=== PATIENT | female | born 1970 | race Hispanic/Latino ===

== ENCOUNTER 2017-07-12 22:33 | Inpatient (IN) | payer MEDICAID ==
[2017-07-12] MEDS ORDERED: TYLENOL PO ONE (22:56)
[2017-07-12 23:39] LABS: Basophils % (Auto) 0.4 % (0.0-1.8); Hematocrit 34.8 % (30.3-42.9); Hemoglobin 11.5 gm/dl (10.1-14.3); Mean Corpuscular HGB Conc 33 % (30-34); Mean Corpuscular Hemoglobin 28 pg (28-32); Mean Corpuscular Volume 86 fl (79-97); Platelet Count 252 K/mm3 (140-440); Red Blood Count 4.05 M/mm3 (3.65-5.03); Red Cell Distribution Width 13.6 % (13.2-15.2); White Blood Count 9.1 K/mm3 (4.5-11.0)
[2017-07-12 23:54] LABS: Alanine Aminotransferase 7 units/L (7-56); Albumin 2.5 g/dL (3.9-5); Albumin/Globulin Ratio 0.5 %; Alkaline Phosphatase 91 units/L (35-129); Anion Gap 25 mmol/L; BUN/Creatinine Ratio 16; Bilirubin,Total < 0.20 mg/dL (0.1-1.2); Blood Urea Nitrogen 27 mg/dL (7-17); Calcium 8.5 mg/dL (8.4-10.2); Carbon Dioxide 19 mmol/L (22-30); Chloride 91.6 mmol/L (98-107); Glucose 294 mg/dL (65-100); Lipase 139 units/L (13-60); Potassium 4.3 mmol/L (3.6-5.0); Sodium 131 mmol/L (137-145); Total Protein 7.3 g/dL (6.3-8.2)
[2017-07-13 01:40] LABS: Bacteria,Urine 1+ /HPF (Negative); Bilirubin,Urine NEG (Negative); Blood,Urine NEG (Negative); Ketones,Urine NEG (Negative); Leukocyte Esterase,Urine NEG (Negative); Mucus,Urine FEW /HPF; Nitrite,Urine NEG (Negative); Urobilinogen,Urine < 2.0 mg/dL (<2.0)
[2017-07-13 01:43] LABS: Protein,Urine >500 mg/dL (Negative)
[2017-07-13] MEDS ORDERED: BENADRYL IV ONE (04:07)
[2017-07-13] MEDS ORDERED: ZOFRAN IV ONE (04:07)
[2017-07-13] MEDS ORDERED: DILAUDID IV ONE (04:07)
--- NOTE | 2017-07-13 04:11 | Emergency Department Report ---
- General Chief complaint: Skin Rash Stated complaint: RASH Time Seen by Provider: 07/13/17 02:58 Source: patient Mode of arrival: Ambulatory Limitations: No Limitations - History of Present Illness Initial comments: 47 year old female with past medical history of diabetes, psoriasis, and neuropathy presents to the hospital complains of progressively worsening pruritic rash 2 weeks. I started at the legs and has extended upward to include the torso and arms. Positive pruritus. Patient use a Benadryl and calamine lotion without improvement. Patient complains of dry cough and subjective fever for the last 2-3 days but denies fever prior to that. Patient thinks she might have been bitten by an insect prior to symptom onset. 3 weeks ago patient was seen at [facility] and prescribed medications including an unknown antibiotic for URI. Patient is a chronic right foot plantar surface ulcer. She complains of 10/10 burning and pruritic pain to lower extremities. - Related Data Home Medications Medication Instructions Recorded Confirmed Last Taken AtorvaSTATin [Lipitor] 20 mg PO DAILY 09/19/15 07/13/17 11/07/15 20 MG Insulin Glargine [Lantus] 25 unit SUB-Q QHS 09/19/15 07/13/17 11/07/15 25 UNIT Lisinopril [Zestril TAB] 10 mg PO QDAY 09/19/15 07/13/17 11/07/15 10 MG Ranitidine HCl [Zantac 300 MG TAB] 300 mg PO QPM 09/19/15 07/13/17 11/07/15 300 MG buPROPion SR [Wellbutrin Sr] 150 mg PO QAM 09/19/15 07/13/17 11/07/15 150 MG Insulin Lispro [Humalog] 15 unit SQ TID 07/13/17 07/13/17 Unknown Previous Rx's Medication Instructions Recorded Last Taken Type Ketorolac [Toradol] 10 mg PO Q6H PRN #20 tablet 10/16/15 11/07/15 Rx 10 MG HYDROcodone/APAP 5-325 [[place] 1 each PO Q6HR PRN #20 tablet 10/22/15 11/07/15 Rx 5/325] 1 EACH ALBUTEROL Inhaler [ProAir HFA 2 puff IH QID PRN #1 inhalation 11/07/15 Unknown Rx Inhaler] HYDROcodone/APAP 10-325 [[place] 1 each PO Q8HR PRN #20 tablet 11/07/15 Unknown Rx 10-325 mg TAB] Ibuprofen [Motrin] 600 mg PO Q6H PRN #20 tablet 12/19/15 Unknown Rx Allergies Allergy/AdvReac Type Severity Reaction Status Date / Time Penicillins Allergy Unknown Verified 01/15/17 17:55 IV contrast Allergy Rash Uncoded 01/15/17 17:55 Abscess Boil HPI - HPI Chief Complaint: Skin Rash Stated Complaint: RASH Time Seen by Provider: 07/13/17 02:58 Home Medications: Home Medications Medication Instructions Recorded Confirmed Last Taken AtorvaSTATin [Lipitor] 20 mg PO DAILY 09/19/15 07/13/17 11/07/15 20 MG Insulin Glargine [Lantus] 25 unit SUB-Q QHS 09/19/15 07/13/17 11/07/15 25 UNIT Lisinopril [Zestril TAB] 10 mg PO QDAY 09/19/15 07/13/17 11/07/15 10 MG Ranitidine HCl [Zantac 300 MG TAB] 300 mg PO QPM 09/19/15 07/13/17 11/07/15 300 MG buPROPion SR [Wellbutrin Sr] 150 mg PO QAM 09/19/15 07/13/17 11/07/15 150 MG Insulin Lispro [Humalog] 15 unit SQ TID 07/13/17 07/13/17 Unknown Previous Rx's Medication Instructions Recorded Last Taken Type Ketorolac [Toradol] 10 mg PO Q6H PRN #20 tablet 10/16/15 11/07/15 Rx 10 MG HYDROcodone/APAP 5-325 [[place] 1 each PO Q6HR PRN #20 tablet 10/22/15 11/07/15 Rx 5/325] 1 EACH ALBUTEROL Inhaler [ProAir HFA 2 puff IH QID PRN #1 inhalation 11/07/15 Unknown Rx Inhaler] HYDROcodone/APAP 10-325 [[place] 1 each PO Q8HR PRN #20 tablet 11/07/15 Unknown Rx 10-325 mg TAB] Ibuprofen [Motrin] 600 mg PO Q6H PRN #20 tablet 12/19/15 Unknown Rx Allergies/Adverse Reactions: Allergies Allergy/AdvReac Type Severity Reaction Status Date / Time Penicillins Allergy Unknown Verified 01/15/17 17:55 IV contrast Allergy Rash Uncoded 01/15/17 17:55 ED Review of Systems ROS: Stated complaint: RASH Other details as noted in HPI Comment: All other systems reviewed and negative Other: Constitutional: as per hpi Eyes: No eye pain visual changes ENT: No ear pain or throat pain Neck: Denies pain Respiratory: no sob Cardiovascular: Denies chest pain, palpitations, syncope GI: Denies abdominal pain, nausea, vomiting, diarrhea : Denies dysuria Musculoskeletal: Denies back pain, joint swelling Skin: as per hpi Neurologic: Denies headache, numbness, weakness Psychiatric: Denies suicidal ideation, hallucinations ED Past Medical Hx - Past Medical History Hx Congestive Heart Failure: No Hx Diabetes: Yes Hx Asthma: Yes Hx COPD: No Hx HIV: No Additional medical history: psorasis. NEUROPATHY. FIBROIDS - Surgical History Additional Surgical History: X 1 , Hx. left wrist surgery 2 toes amputated r) foot. partial right foot amputation - Social History Smoking Status: Never Smoker Substance Use Type: None - Medications Home Medications: Home Medications Medication Instructions Recorded Confirmed Last Taken Type AtorvaSTATin [Lipitor] 20 mg PO DAILY 09/19/15 07/13/17 11/07/15 History 20 MG Insulin Glargine [Lantus] 25 unit SUB-Q QHS 09/19/15 07/13/17 11/07/15 History 25 UNIT Lisinopril [Zestril TAB] 10 mg PO QDAY 09/19/15 07/13/17 11/07/15 History 10 MG Ranitidine HCl [Zantac 300 MG TAB] 300 mg PO QPM 09/19/15 07/13/17 11/07/15 History 300 MG buPROPion SR [Wellbutrin Sr] 150 mg PO QAM 09/19/15 07/13/17 11/07/15 History 150 MG Ketorolac [Toradol] 10 mg PO Q6H PRN #20 tablet 10/16/15 07/13/17 11/07/15 Rx 10 MG HYDROcodone/APAP 5-325 [[place] 1 each PO Q6HR PRN #20 tablet 10/22/15 07/13/17 Rx 5/325] 1 EACH ALBUTEROL Inhaler [ProAir HFA 2 puff IH QID PRN #1 inhalation 11/07/15 07/13/17 Unknown Rx Inhaler] HYDROcodone/APAP 10-325 [[place] 1 each PO Q8HR PRN #20 tablet 11/07/15 07/13/17 Unknown Rx 10-325 mg TAB] Ibuprofen [Motrin] 600 mg PO Q6H PRN #20 tablet 12/19/15 07/13/17 Unknown Rx Insulin Lispro [Humalog] 15 unit SQ TID 07/13/17 07/13/17 Unknown History ED Physical Exam - General Limitations: No Limitations - Other Other exam information: General: No limitations, patient is alert in no acute distress Head exam: Atraumatic, normocephalic Eyes exam: Normal appearance, no conjunctivae ENT: Moist mucous membrane, normal oropharynx, no oral lesions Neck exam: Normal inspection, full range of motion, no meningismus nontender Respiratory exam: Clear to auscultation bilateral, no wheezes, rales, crackles Cardiovascular: Normal rate and rhythm, normal heart sounds Abdomen: Soft, nondistended, and nontender, with normal bowel sounds, no rebound, or guarding Extremity: Full range of motion, right midfoot amputation. 4 cm ulceration to the plantar surface of foot active drainage or warm Back: Normal Inspection, full range of motion, no tenderness Neurologic: Alert, oriented x3, cranial nerves intact, no motor or sensory deficit Psychiatric: normal affect, normal mood Skin: Macular papular erythematous nonblanching pruritic rash to lower extremities extending to the torso. Right is more confluent and tender in the lower extremities with small blister formation distally. Patient has a psoriasis-like rash to bilateral arms which she states is ongoing. No rash on the face, palms ED Course Vital Signs 07/12/17 07/12/17 07/13/17 22:41 23:59 02:16 Temperature 98.6 F 98.1 F Pulse Rate 103 H 96 H Respiratory 20 18 20 Rate Blood Pressure 153/68 Blood Pressure 187/89 [Left] O2 Sat by Pulse 100 98 Oximetry 07/13/17 07/13/17 07/13/17 02:17 04:07 04:20 Temperature 98.1 F Pulse Rate 97 H Respiratory 20 18 18 Rate Blood Pressure Blood Pressure 192/102 [Left] O2 Sat by Pulse 98 99 Oximetry - Reevaluation(s) Reevaluation #1: 07/13/17 04:39 dilaudid , benadryl, zofran, solumedrol, insulin sliding scale ordered. Reevaluation #2: 07/13/17 04:51 I attempted to obtain medical records from [facility], they're [place] medical record system is on down time and to at least till 6 AM. - Consultations Consultation #1: 07/13/17 04:[address] Bryson infectious disease. Suggest that rash may be allergic reaction. Possibility of a reaction to Bactrim. Patient does not know the name of the medication she takes. I will request medical release of information from [facility]. ED Medical Decision Making - Lab Data Result diagrams: 07/12/17 23:20 07/12/17 23:20 Lab Results 07/12/17 07/12/17 07/12/17 Range/Units 22:46 23:20 23:20 WBC 9.1 (4.5-11.0) K/mm3 RBC 4.05 (3.65-5.03) M/mm3 Hgb 11.5 (10.1-14.3) gm/dl Hct 34.8 (30.3-42.9) % MCV 86 (79-97) fl MCH 28 (28-32) pg MCHC 33 (30-34) % RDW 13.6 (13.2-15.2) % Plt Count 252 (140-440) K/mm3 Lymph % (Auto) 26.6 (13.4-35.0) % [place] % (Auto) 7.7 H (0.0-7.3) % Eos % (Auto) 2.0 (0.0-4.3) % Baso % (Auto) 0.4 (0.0-1.8) % Lymph # 2.4 (1.2-5.4) K/mm3 [place] # 0.7 (0.0-0.8) K/mm3 Eos # 0.2 (0.0-0.4) K/mm3 Baso # 0.0 (0.0-0.1) K/mm3 Seg Neutrophils % 63.3 (40.0-70.0) % Seg Neutrophils # 5.8 (1.8-7.7) K/mm3 VBG pH 7.388 (7.320-7.420) Sodium (137-145) mmol/L Potassium (3.6-5.0) mmol/L Chloride (98-107) mmol/L Carbon Dioxide (22-30) mmol/L Anion Gap mmol/L BUN (7-17) mg/dL Creatinine (0.7-1.2) mg/dL Estimated GFR ml/min BUN/Creatinine Ratio % Glucose (65-100) mg/dL POC Glucose 381 H (70-105) Calcium (8.4-10.2) mg/dL Total Bilirubin (0.1-1.2) mg/dL AST (5-40) units/L ALT (7-56) units/L Alkaline Phosphatase (35-129) units/L Total Protein (6.3-8.2) g/dL Albumin (3.9-5) g/dL Albumin/Globulin Ratio % Lipase (13-60) units/L Urine Color (Yellow) Urine Turbidity (Clear) Urine pH (5.0-7.0) Ur Specific [place] (1.003-1.030) Urine Protein (Negative) mg/dL Urine Glucose (UA) (Negative) mg/dL Urine Ketones (Negative) mg/dL Urine Blood (Negative) Urine Nitrite (Negative) Urine Bilirubin (Negative) Urine Urobilinogen (<2.0) mg/dL Ur Leukocyte Esterase (Negative) Urine WBC (Auto) (0.0-6.0) /HPF Urine RBC (Auto) (0.0-6.0) /HPF U Epithel Cells (Auto) (0-13.0) /HPF Urine Bacteria (Auto) (Negative) /HPF Urine Mucus /HPF Urine HCG, Qual (Negative) 07/12/17 07/12/17 07/13/17 Range/Units 23:20 Unknown 04:09 WBC (4.5-11.0) K/mm3 RBC (3.65-5.03) M/mm3 Hgb (10.1-14.3) gm/dl Hct (30.3-42.9) % MCV (79-97) fl MCH (28-32) pg MCHC (30-34) % RDW (13.2-15.2) % Plt Count (140-440) K/mm3 Lymph % (Auto) (13.4-35.0) % [place] % (Auto) (0.0-7.3) % Eos % (Auto) (0.0-4.3) % Baso % (Auto) (0.0-1.8) % Lymph # (1.2-5.4) K/mm3 [place] # (0.0-0.8) K/mm3 Eos # (0.0-0.4) K/mm3 Baso # (0.0-0.1) K/mm3 Seg Neutrophils % (40.0-70.0) % Seg Neutrophils # (1.8-7.7) K/mm3 VBG pH (7.320-7.420) Sodium 131 L (137-145) mmol/L Potassium 4.3 (3.6-5.0) mmol/L Chloride 91.6 L (98-107) mmol/L Carbon Dioxide 19 L (22-30) mmol/L Anion Gap 25 mmol/L BUN 27 H (7-17) mg/dL Creatinine 1.7 H (0.7-1.2) mg/dL Estimated GFR 32 ml/min BUN/Creatinine Ratio 16 % Glucose 294 H (65-100) mg/dL POC Glucose (70-105) Calcium 8.5 (8.4-10.2) mg/dL Total Bilirubin < 0.20 (0.1-1.2) mg/dL AST 10 (5-40) units/L ALT 7 (7-56) units/L Alkaline Phosphatase 91 (35-129) units/L Total Protein 7.3 (6.3-8.2) g/dL Albumin 2.5 L (3.9-5) g/dL Albumin/Globulin Ratio 0.5 % Lipase 139 H (13-60) units/L Urine Color Yellow (Yellow) Urine Turbidity Clear (Clear) Urine pH 6.0 (5.0-7.0) Ur Specific [place] 1.022 (1.003-1.030) Urine Protein >500 (Negative) mg/dL Urine Glucose (UA) >=500 (Negative) mg/dL Urine Ketones Neg (Negative) mg/dL Urine Blood Neg (Negative) Urine Nitrite Neg (Negative) Urine Bilirubin Neg (Negative) Urine Urobilinogen < 2.0 (<2.0) mg/dL Ur Leukocyte Esterase Neg (Negative) Urine WBC (Auto) 1.0 (0.0-6.0) /HPF Urine RBC (Auto) 22.0 (0.0-6.0) /HPF U Epithel Cells (Auto) 5.0 (0-13.0) /HPF Urine Bacteria (Auto) 1+ (Negative) /HPF Urine Mucus Few /HPF Urine HCG, Qual Negative (Negative) - Medical Decision Making I'm unclear as to cause the patient's rash may represent an allergic reaction as suggested by infectious disease. Patient initially quarantining the ER for suspected measles but patient's rash and symptoms do not suggest measles. I consider obtained a recent ER chart from [facility], their medical record system is on downtime until 6 AM. Concerned that rash may be cause by Bactrim. Patient started on Dilaudid pain, Benadryl for pruritus, and Solu-Medrol for possible allergic reaction. Patient's glucose will need close monitoring while on steroids. Pt has new onset renal insufficiency and will be admitted. Patient also can't recall the name of her pharmacy where she filled the prescription and if we are unable to obtain medical records from [facility] perhaps the pharmacy can be called during business hours - Differential Diagnosis allergic reaction, drug rash, infectious rash, Critical Care Time: No Critical care attestation.: If time is entered above; I have spent that time in minutes in the direct care of this critically ill patient, excluding procedure time. ED Disposition Clinical Impression: Acute renal insufficiency, Pruritic rash, Hx of amputation of foot, Diabetic foot ulcer, Uncontrolled diabetes mellitus, Psoriasis, Neuropathy Disposition: OP ADMIT IP TO THIS HOSP Is pt being admited?: Yes Condition: Stable Time of Disposition: 04:11 (Dr Blake/hosp)
[2017-07-13] MEDS ORDERED: DILAUDID IV PRN (09:32)
[2017-07-13] MEDS ORDERED: TYLENOL PO PRN (09:34)
[2017-07-13] MEDS ORDERED: ZOFRAN IV PRN (09:34)
[2017-07-13] MEDS ORDERED: D50W (25GM) Syringe IV PRN (09:36)
[2017-07-13] MEDS ORDERED: NORCO 10/325 PO PRN (09:39)
[2017-07-13] MEDS ORDERED: PROAIR IH PRN (09:39)
--- NOTE | 2017-07-13 09:46 | History and Physical Report ---
Medications and Allergies Allergies Allergy/AdvReac Type Severity Reaction Status Date / Time Penicillins Allergy Unknown Verified 01/15/17 17:55 IV contrast Allergy Rash Uncoded 01/15/17 17:55 Home Medications Medication Instructions Recorded Confirmed Last Taken Type AtorvaSTATin [Lipitor] 20 mg PO DAILY 09/19/15 07/13/17 11/07/15 History 20 MG Insulin Glargine [Lantus] 25 unit SUB-Q QHS 09/19/15 07/13/17 11/07/15 History 25 UNIT Lisinopril [Zestril TAB] 10 mg PO QDAY 09/19/15 07/13/17 11/07/15 History 10 MG Ranitidine HCl [Zantac 300 MG TAB] 300 mg PO QPM 09/19/15 07/13/17 11/07/15 History 300 MG buPROPion SR [Wellbutrin Sr] 150 mg PO QAM 09/19/15 07/13/17 11/07/15 History 150 MG Ketorolac [Toradol] 10 mg PO Q6H PRN #20 tablet 10/16/15 07/13/17 11/07/15 Rx 10 MG HYDROcodone/APAP 5-325 [[place] 1 each PO Q6HR PRN #20 tablet 10/22/15 07/13/17 Rx 5/325] 1 EACH ALBUTEROL Inhaler [ProAir HFA 2 puff IH QID PRN #1 inhalation 11/07/15 07/13/17 Unknown Rx Inhaler] HYDROcodone/APAP 10-325 [[place] 1 each PO Q8HR PRN #20 tablet 11/07/15 07/13/17 Unknown Rx 10-325 mg TAB] Ibuprofen [Motrin] 600 mg PO Q6H PRN #20 tablet 12/19/15 07/13/17 Unknown Rx Insulin Lispro [Humalog] 15 unit SQ TID 07/13/17 07/13/17 Unknown History Active Meds: Active Medications Acetaminophen (Tylenol) 650 mg PO Q4H PRN PRN Reason: Pain MILD(1-3)/Fever >100.5/[place] Acetaminophen/Hydrocodone Bitart ([place] 10/325) 1 each PO Q8HR PRN PRN Reason: Pain Albuterol (Proair) 2 puff IH QID PRN PRN Reason: Shortness Of Breath Atorvastatin Calcium (Lipitor) 20 mg PO DAILY RADHA Bupropion HCl (Wellbutrin Sr) 150 mg PO QAM RADHA Dextrose (D50w (25gm) Syringe) 50 ml IV PRN PRN PRN Reason: Hypoglycemia Diphenhydramine HCl (Benadryl) 25 mg IV Q6H PRN PRN Reason: Rash Heparin Sodium (Porcine) (Heparin) 5,000 unit SUB-Q Q8HR RADHA Hydromorphone HCl (Dilaudid) 0.5 mg IV Q3H PRN PRN Reason: Pain , Severe (7-10) Insulin Aspart (Novolog) 0 units SUB-Q ACHS RADHA PRN Reason: Protocol Insulin Detemir (Levemir) 25 units SUB-Q QHS RADHA Methylprednisolone Sodium Succinate (Solu-Medrol) 40 mg IV TID ONE Stop: 07/13/17 09:33 Miscellaneous Medication (Ranitidine Hcl [Zantac 300 Mg Tab]) 300 mg PO QPM RADHA Ondansetron HCl (Zofran) 4 mg IV Q8H PRN PRN Reason: N/V unrelieved by [place]ario Exam - Constitutional Vitals: Temp Pulse Resp BP Pulse Ox 98.3 F 75 16 159/74 97 07/13/17 08:00 07/13/17 08:00 07/13/17 08:04 07/13/17 08:00 07/13/17 08:04 Results - Labs CBC & Chem 7: 07/12/17 23:20 07/12/17 23:20 Labs: Laboratory Last Values WBC 9.1 K/mm3 (4.5-11.0) 07/12/17 23:20 RBC 4.05 M/mm3 (3.65-5.03) 07/12/17 23:20 Hgb 11.5 gm/dl (10.1-14.3) 07/12/17 23:20 Hct 34.8 % (30.3-42.9) 07/12/17 23:20 MCV 86 fl (79-97) 07/12/17 23:20 MCH 28 pg (28-32) 07/12/17 23:20 MCHC 33 % (30-34) 07/12/17 23:20 RDW 13.6 % (13.2-15.2) 07/12/17 23:20 Plt Count 252 K/mm3 (140-440) 07/12/17 23:20 Lymph % (Auto) 26.6 % (13.4-35.0) 07/12/17 23:20 [place] % (Auto) 7.7 % (0.0-7.3) H 07/12/17 23:20 Eos % (Auto) 2.0 % (0.0-4.3) 07/12/17 23:20 Baso % (Auto) 0.4 % (0.0-1.8) 07/12/17 23:20 Lymph # 2.4 K/mm3 (1.2-5.4) 07/12/17 23:20 [place] # 0.7 K/mm3 (0.0-0.8) 07/12/17 23:20 Eos # 0.2 K/mm3 (0.0-0.4) 07/12/17 23:20 Baso # 0.0 K/mm3 (0.0-0.1) 07/12/17 23:20 Seg Neutrophils % 63.3 % (40.0-70.0) 07/12/17 23:20 Seg Neutrophils # 5.8 K/mm3 (1.8-7.7) 07/12/17 23:20 VBG pH 7.388 (7.320-7.420) 07/12/17 23:20 Sodium 131 mmol/L (137-145) L 07/12/17 23:20 Potassium 4.3 mmol/L (3.6-5.0) 07/12/17 23:20 Chloride 91.6 mmol/L (98-107) L 07/12/17 23:20 Carbon Dioxide 19 mmol/L (22-30) L 07/12/17 23:20 Anion Gap 25 mmol/L 07/12/17 23:20 BUN 27 mg/dL (7-17) H 07/12/17 23:20 Creatinine 1.7 mg/dL (0.7-1.2) H 07/12/17 23:20 Estimated GFR 32 ml/min 07/12/17 23:20 BUN/Creatinine Ratio 16 % 07/12/17 23:20 Glucose 294 mg/dL (65-100) H 07/12/17 23:20 POC Glucose 371 (70-105) H 07/13/17 07:57 Calcium 8.5 mg/dL (8.4-10.2) 07/12/17 23:20 Total Bilirubin < 0.20 mg/dL (0.1-1.2) 07/12/17 23:20 AST 10 units/L (5-40) 07/12/17 23:20 ALT 7 units/L (7-56) 07/12/17 23:20 Alkaline Phosphatase 91 units/L (35-129) 07/12/17 23:20 Total Protein 7.3 g/dL (6.3-8.2) 07/12/17 23:20 Albumin 2.5 g/dL (3.9-5) L 07/12/17 23:20 Albumin/Globulin Ratio 0.5 % 07/12/17 23:20 Lipase 139 units/L (13-60) H 07/12/17 23:20 Urine Color Yellow (Yellow) 07/12/17 Unknown Urine Turbidity Clear (Clear) 07/12/17 Unknown Urine pH 6.0 (5.0-7.0) 07/12/17 Unknown Ur Specific [place] 1.022 (1.003-1.030) 07/12/17 Unknown Urine Protein >500 mg/dL (Negative) 07/12/17 Unknown Urine Glucose (UA) >=500 mg/dL (Negative) 07/12/17 Unknown Urine Ketones Neg mg/dL (Negative) 07/12/17 Unknown Urine Blood Neg (Negative) 07/12/17 Unknown Urine Nitrite Neg (Negative) 07/12/17 Unknown Urine Bilirubin Neg (Negative) 07/12/17 Unknown Urine Urobilinogen < 2.0 mg/dL (<2.0) 07/12/17 Unknown Ur Leukocyte Esterase Neg (Negative) 07/12/17 Unknown Urine WBC (Auto) 1.0 /HPF (0.0-6.0) 07/12/17 Unknown Urine RBC (Auto) 22.0 /HPF (0.0-6.0) 07/12/17 Unknown U Epithel Cells (Auto) 5.0 /HPF (0-13.0) 07/12/17 Unknown Urine Bacteria (Auto) 1+ /HPF (Negative) 07/12/17 Unknown Urine Mucus Few /HPF 07/12/17 Unknown Urine HCG, Qual Negative (Negative) 07/13/17 04:09 Assessment and Plan Assessment and plan: Allergic skin rash/ penicillin Psoriasis Uncontrolled DM HTN HLD Diabetic foot ulcer PVD - Solumedrol, bendaryl - ID consult - SSI, statin - IVF for ARF DVT prophylaxis - heparin Disposition - admit to the medical floor Advance Directives: Yes VTE prophylaxis?: Chemical Plan of care discussed with patient/family: Yes
[2017-07-13] MEDS ORDERED: PROVENTIL IH PRN (10:07)
[2017-07-13] MEDS: NACL 0.9% 1000 ML 1,000 ML IV SCH ×2 (11:10→20:04)
[2017-07-13] MEDS: WELLBUTRIN SR PO SCH (11:15)
--- NOTE | 2017-07-13 12:29 | History and Physical Report ---
History of Present Illness Date of admission: 07/13/17 09:31 Chief complaint: Skin Rash History of present illness: 47-year-old female with past medical history significant for diabetes mellitus type 2, hyperlipidemia, hypertension, psoriasis presented to the emergency department complaining of skin rash for the last weeks. Patient was initially started in the leg as small red lesions and spreading upwards to involve the abdomen, trunk and upper extremities. She is painful, itchy. There is no ulceration or discharge from the skin lesion. Patient denied cough , fever or chills. Patient has penicillin allergy. Patient went to [facility] a month ago for cough and she was given Augmentin. Patient has been run out of her medications for the last 1 month. REVIEW OF SYSTEMS: GENERAL: no weight change, no fatigue, no fever HEAD: no head ache EYES: no blurry vision, no acute visual loss EARS: no hearing loss, no discharge, no earache NOSE: no stuffiness, no sneezing, no discharge MOUTH, THROAT AND NECK: no bleeding gums, no sore throat, no swollen neck CARDIAC: no palpitations, no dyspnea on exertion, no orthopnea, no PND, no edema , no chest pain RESPIRATORY: no shortness of breath, no wheeze, no cough, no sputum, no hemoptysis, no asthma GI: no decreased appetite, no nausea, no vomiting, no dysphagia, no diarrhea, no constipation, no abdominal pain URINARY: no change in frequency, no urgency, no polyuria, no hematuria, no incontinence MUSCULOSKELETAL: no muscle weakness, no pain, no joint stiffness NEUROLOGIC: no loss of sensation/numbness, no tingling, no tremors, no weakness/ paralysis HEMATOLOGIC: no anemia, no easy bruising SKIN: no rashes ENDOCRINE: no heat/cold intolerance, no polyuria, no polydipsia, no thyroid problems, +diabetes PSYCHIATRIC: no anxiety, no depression, no suicidal ideations Past History Past Medical History: diabetes, hypertension, hyperlipidemia, other (psoriasis) Past Surgical History: , Other (tubal ligation, right foot amputation, left wrist surgery) Social history: full code. denies: smoking, alcohol abuse, prescription drug abuse, IV drug use Family history: diabetes (diabetes run in the family) Medications and Allergies Allergies Allergy/AdvReac Type Severity Reaction Status Date / Time Penicillins Allergy Unknown Verified 01/15/17 17:55 IV contrast Allergy Rash Uncoded 01/15/17 17:55 Home Medications Medication Instructions Recorded Confirmed Last Taken Type AtorvaSTATin [Lipitor] 20 mg PO DAILY 09/19/15 07/13/17 11/07/15 History 20 MG Insulin Glargine [Lantus] 25 unit SUB-Q QHS 09/19/15 07/13/17 11/07/15 History 25 UNIT Lisinopril [Zestril TAB] 10 mg PO QDAY 09/19/15 07/13/17 11/07/15 History 10 MG Ranitidine HCl [Zantac 300 MG TAB] 300 mg PO QPM 09/19/15 07/13/17 11/07/15 History 300 MG buPROPion SR [Wellbutrin Sr] 150 mg PO QAM 09/19/15 07/13/17 11/07/15 History 150 MG Ketorolac [Toradol] 10 mg PO Q6H PRN #20 tablet 10/16/15 07/13/17 11/07/15 Rx 10 MG HYDROcodone/APAP 5-325 [[place] 1 each PO Q6HR PRN #20 tablet 10/22/15 07/13/17 Rx 5/325] 1 EACH ALBUTEROL Inhaler [ProAir HFA 2 puff IH QID PRN #1 inhalation 11/07/15 07/13/17 Unknown Rx Inhaler] HYDROcodone/APAP 10-325 [[place] 1 each PO Q8HR PRN #20 tablet 11/07/15 07/13/17 Unknown Rx 10-325 mg TAB] Ibuprofen [Motrin] 600 mg PO Q6H PRN #20 tablet 12/19/15 07/13/17 Unknown Rx Insulin Lispro [Humalog] 15 unit SQ TID 07/13/17 07/13/17 Unknown History Active Meds: Active Medications Acetaminophen (Tylenol) 650 mg PO Q4H PRN PRN Reason: Pain MILD(1-3)/Fever >100.5/[place] Acetaminophen/Hydrocodone Bitart ([place] 10/325) 1 each PO Q8H PRN PRN Reason: SEVERE PAIN (7-10) Albuterol (Proventil) 2.5 mg IH Q4H PRN PRN Reason: Shortness Of Breath Atorvastatin Calcium (Lipitor) 20 mg PO DAILY [facility] Last Admin: 07/13/17 10:43 Dose: 20 mg Bupropion HCl (Wellbutrin Sr) 150 mg PO QAM [facility] Last Admin: 07/13/17 11:15 Dose: 150 mg Dextrose (D50w (25gm) Syringe) 50 ml IV PRN PRN PRN Reason: Hypoglycemia Diphenhydramine HCl (Benadryl) 25 mg IV Q6H PRN PRN Reason: Rash Famotidine (Pepcid) 20 mg PO QHS [facility] Heparin Sodium (Porcine) (Heparin) 5,000 unit SUB-Q Q8HR [facility] Hydromorphone HCl (Dilaudid) 0.5 mg IV Q3H PRN PRN Reason: Pain , Severe (7-10) Sodium Chloride (Nacl 0.9% 1000 Ml) 1,000 mls @ 100 mls/hr IV DIRECT [facility] Last Admin: 07/13/17 11:10 Dose: 100 mls/hr Insulin Aspart (Novolog) 0 units SUB-Q ACHS [facility] PRN Reason: Protocol Insulin Detemir (Levemir) 25 units SUB-Q QHS [facility] Ondansetron HCl (Zofran) 4 mg IV Q8H PRN PRN Reason: N/V unrelieved by Reglan Exam - Physical Exam Narrative exam: Patient has erythematous lesions all over the body pronounced on the legs. It spared the mucus membranes. Not in cardiopulmonary distress. The patient appeared well nourished and normally developed. Vital signs as documented. Head exam is unremarkable. No scleral icterus . Neck is without jugular venous distension, thyromegaly, or carotid bruits. Lungs are clear to auscultation. Cardiac exam reveals regular rate and Rhythm. First and second heart sounds normal. No murmurs, rubs or gallops. Abdominal exam reveals normal bowel sounds, no masses, no organomegaly and no aortic enlargement. Extremities are nonedematous and both femoral and pedal pulses are normal. ENTERTAINMENT PRODUCTION PROFESSIONAL: Alert and oriented 3. No focal weakness. - Constitutional Vitals: Temp Pulse Resp BP Pulse Ox 97.9 F 80 16 181/101 97 07/13/17 10:00 07/13/17 10:00 07/13/17 10:00 07/13/17 11:15 07/13/17 10:00 Results - Labs CBC & Chem 7: 07/12/17 23:20 07/12/17 23:20 Labs: Laboratory Last Values WBC 9.1 K/mm3 (4.5-11.0) 07/12/17 23:20 RBC 4.05 M/mm3 (3.65-5.03) 07/12/17 23:20 Hgb 11.5 gm/dl (10.1-14.3) 07/12/17 23:20 Hct 34.8 % (30.3-42.9) 07/12/17 23:20 MCV 86 fl (79-97) 07/12/17 23:20 MCH 28 pg (28-32) 07/12/17 23:20 MCHC 33 % (30-34) 07/12/17 23:20 RDW 13.6 % (13.2-15.2) 07/12/17 23:20 Plt Count 252 K/mm3 (140-440) 07/12/17 23:20 Lymph % (Auto) 26.6 % (13.4-35.0) 07/12/17 23:20 [place] % (Auto) 7.7 % (0.0-7.3) H 07/12/17 23:20 Eos % (Auto) 2.0 % (0.0-4.3) 07/12/17 23:20 Baso % (Auto) 0.4 % (0.0-1.8) 07/12/17 23:20 Lymph # 2.4 K/mm3 (1.2-5.4) 07/12/17 23:20 [place] # 0.7 K/mm3 (0.0-0.8) 07/12/17 23:20 Eos # 0.2 K/mm3 (0.0-0.4) 07/12/17 23:20 Baso # 0.0 K/mm3 (0.0-0.1) 07/12/17 23:20 Seg Neutrophils % 63.3 % (40.0-70.0) 07/12/17 23:20 Seg Neutrophils # 5.8 K/mm3 (1.8-7.7) 07/12/17 23:20 VBG pH 7.388 (7.320-7.420) 07/12/17 23:20 Sodium 131 mmol/L (137-145) L 07/12/17 23:20 Potassium 4.3 mmol/L (3.6-5.0) 07/12/17 23:20 Chloride 91.6 mmol/L (98-107) L 07/12/17 23:20 Carbon Dioxide 19 mmol/L (22-30) L 07/12/17 23:20 Anion Gap 25 mmol/L 07/12/17 23:20 BUN 27 mg/dL (7-17) H 07/12/17 23:20 Creatinine 1.7 mg/dL (0.7-1.2) H 07/12/17 23:20 Estimated GFR 32 ml/min 07/12/17 23:20 BUN/Creatinine Ratio 16 % 07/12/17 23:20 Glucose 294 mg/dL (65-100) H 07/12/17 23:20 POC Glucose 371 (70-105) H 07/13/17 07:57 Hemoglobin A1c 13.3 % (4-6) H 07/13/17 09:54 Calcium 8.5 mg/dL (8.4-10.2) 07/12/17 23:20 Total Bilirubin < 0.20 mg/dL (0.1-1.2) 07/12/17 23:20 AST 10 units/L (5-40) 07/12/17 23:20 ALT 7 units/L (7-56) 07/12/17 23:20 Alkaline Phosphatase 91 units/L (35-129) 07/12/17 23:20 Total Protein 7.3 g/dL (6.3-8.2) 07/12/17 23:20 Albumin 2.5 g/dL (3.9-5) L 07/12/17 23:20 Albumin/Globulin Ratio 0.5 % 07/12/17 23:20 Triglycerides 209 mg/dL (2-149) H 07/13/17 09:54 Cholesterol 237 mg/dL (50-199) H 07/13/17 09:54 LDL Cholesterol Direct 156 mg/dL (50-130) H 07/13/17 09:54 HDL Cholesterol 40 mg/dL (40-59) 07/13/17 09:54 Cholesterol/HDL Ratio 5.92 % 07/13/17 09:54 Lipase 139 units/L (13-60) H 07/12/17 23:20 Urine Color Yellow (Yellow) 07/12/17 Unknown Urine Turbidity Clear (Clear) 07/12/17 Unknown Urine pH 6.0 (5.0-7.0) 07/12/17 Unknown Ur Specific [place] 1.022 (1.003-1.030) 07/12/17 Unknown Urine Protein >500 mg/dL (Negative) 07/12/17 Unknown Urine Glucose (UA) >=500 mg/dL (Negative) 07/12/17 Unknown Urine Ketones Neg mg/dL (Negative) 07/12/17 Unknown Urine Blood Neg (Negative) 07/12/17 Unknown Urine Nitrite Neg (Negative) 07/12/17 Unknown Urine Bilirubin Neg (Negative) 07/12/17 Unknown Urine Urobilinogen < 2.0 mg/dL (<2.0) 07/12/17 Unknown Ur Leukocyte Esterase Neg (Negative) 07/12/17 Unknown Urine WBC (Auto) 1.0 /HPF (0.0-6.0) 07/12/17 Unknown Urine RBC (Auto) 22.0 /HPF (0.0-6.0) 07/12/17 Unknown U Epithel Cells (Auto) 5.0 /HPF (0-13.0) 07/12/17 Unknown Urine Bacteria (Auto) 1+ /HPF (Negative) 07/12/17 Unknown Urine Mucus Few /HPF 07/12/17 Unknown Urine HCG, Qual Negative (Negative) 07/13/17 04:09
[2017-07-13] MEDS: NOVOLOG SUB-Q SCH ×3 (13:35→23:19)
[2017-07-13] MEDS: HEPARIN SUB-Q SCH ×2 (14:00→23:21)
[2017-07-13] MEDS ORDERED: NORCO 10/325 ONE (14:21)
[2017-07-13] MEDS ORDERED: NON-FORMULARY (Ranitidine Hcl [Zantac 300 Mg Tab] 300 MG) PO SCH (18:00)
[2017-07-13] MEDS: BENADRYL IV PRN (20:20)
[2017-07-13] MEDS ORDERED: LEVEMIR SUB-Q SCH (22:00)
[2017-07-13] MEDS ORDERED: PEPCID PO SCH (22:00)
[2017-07-13] MEDS ORDERED: APRESOLINE IV ONE (23:37)
[2017-07-13] MEDS ORDERED: APRESOLINE IV PRN (23:38)
[2017-07-14] MEDS: HEPARIN SUB-Q SCH (05:51)
[2017-07-14] MEDS: BENADRYL IV PRN (06:42)
[2017-07-14] MEDS: NACL 0.9% 1000 ML 1,000 ML IV SCH (06:56)
--- NOTE | 2017-07-14 08:04 | Progress Note ---
Hospitalist Physical - Constitutional Vitals: Temp Pulse Resp BP Pulse Ox 97.8 F 93 H 18 208/114 96 07/13/17 23:26 07/14/17 00:40 07/13/17 23:26 07/14/17 00:40 07/13/17 23:26 Results - Labs CBC & Chem 7: 07/12/17 23:20 07/12/17 23:20 Labs: Laboratory Last Values WBC 9.1 K/mm3 (4.5-11.0) 07/12/17 23:20 RBC 4.05 M/mm3 (3.65-5.03) 07/12/17 23:20 Hgb 11.5 gm/dl (10.1-14.3) 07/12/17 23:20 Hct 34.8 % (30.3-42.9) 07/12/17 23:20 MCV 86 fl (79-97) 07/12/17 23:20 MCH 28 pg (28-32) 07/12/17 23:20 MCHC 33 % (30-34) 07/12/17 23:20 RDW 13.6 % (13.2-15.2) 07/12/17 23:20 Plt Count 252 K/mm3 (140-440) 07/12/17 23:20 Lymph % (Auto) 26.6 % (13.4-35.0) 07/12/17 23:20 [place] % (Auto) 7.7 % (0.0-7.3) H 07/12/17 23:20 Eos % (Auto) 2.0 % (0.0-4.3) 07/12/17 23:20 Baso % (Auto) 0.4 % (0.0-1.8) 07/12/17 23:20 Lymph # 2.4 K/mm3 (1.2-5.4) 07/12/17 23:20 [place] # 0.7 K/mm3 (0.0-0.8) 07/12/17 23:20 Eos # 0.2 K/mm3 (0.0-0.4) 07/12/17 23:20 Baso # 0.0 K/mm3 (0.0-0.1) 07/12/17 23:20 Seg Neutrophils % 63.3 % (40.0-70.0) 07/12/17 23:20 Seg Neutrophils # 5.8 K/mm3 (1.8-7.7) 07/12/17 23:20 VBG pH 7.388 (7.320-7.420) 07/12/17 23:20 Sodium 131 mmol/L (137-145) L 07/12/17 23:20 Potassium 4.3 mmol/L (3.6-5.0) 07/12/17 23:20 Chloride 91.6 mmol/L (98-107) L 07/12/17 23:20 Carbon Dioxide 19 mmol/L (22-30) L 07/12/17 23:20 Anion Gap 25 mmol/L 07/12/17 23:20 BUN 27 mg/dL (7-17) H 07/12/17 23:20 Creatinine 1.7 mg/dL (0.7-1.2) H 07/12/17 23:20 Estimated GFR 32 ml/min 07/12/17 23:20 BUN/Creatinine Ratio 16 % 07/12/17 23:20 Glucose 294 mg/dL (65-100) H 07/12/17 23:20 POC Glucose 379 (70-105) H 07/14/17 06:03 Hemoglobin A1c 13.3 % (4-6) H 07/13/17 09:54 Calcium 8.5 mg/dL (8.4-10.2) 07/12/17 23:20 Total Bilirubin < 0.20 mg/dL (0.1-1.2) 07/12/17 23:20 AST 10 units/L (5-40) 07/12/17 23:20 ALT 7 units/L (7-56) 07/12/17 23:20 Alkaline Phosphatase 91 units/L (35-129) 07/12/17 23:20 Total Protein 7.3 g/dL (6.3-8.2) 07/12/17 23:20 Albumin 2.5 g/dL (3.9-5) L 07/12/17 23:20 Albumin/Globulin Ratio 0.5 % 07/12/17 23:20 Triglycerides 209 mg/dL (2-149) H 07/13/17 09:54 Cholesterol 237 mg/dL (50-199) H 07/13/17 09:54 LDL Cholesterol Direct 156 mg/dL (50-130) H 07/13/17 09:54 HDL Cholesterol 40 mg/dL (40-59) 07/13/17 09:54 Cholesterol/HDL Ratio 5.92 % 07/13/17 09:54 Lipase 139 units/L (13-60) H 07/12/17 23:20 Urine Color Yellow (Yellow) 07/12/17 Unknown Urine Turbidity Clear (Clear) 07/12/17 Unknown Urine pH 6.0 (5.0-7.0) 07/12/17 Unknown Ur Specific [place] 1.022 (1.003-1.030) 07/12/17 Unknown Urine Protein >500 mg/dL (Negative) 07/12/17 Unknown Urine Glucose (UA) >=500 mg/dL (Negative) 07/12/17 Unknown Urine Ketones Neg mg/dL (Negative) 07/12/17 Unknown Urine Blood Neg (Negative) 07/12/17 Unknown Urine Nitrite Neg (Negative) 07/12/17 Unknown Urine Bilirubin Neg (Negative) 07/12/17 Unknown Urine Urobilinogen < 2.0 mg/dL (<2.0) 07/12/17 Unknown Ur Leukocyte Esterase Neg (Negative) 07/12/17 Unknown Urine WBC (Auto) 1.0 /HPF (0.0-6.0) 07/12/17 Unknown Urine RBC (Auto) 22.0 /HPF (0.0-6.0) 07/12/17 Unknown U Epithel Cells (Auto) 5.0 /HPF (0-13.0) 07/12/17 Unknown Urine Bacteria (Auto) 1+ /HPF (Negative) 07/12/17 Unknown Urine Mucus Few /HPF 07/12/17 Unknown Urine HCG, Qual Negative (Negative) 07/13/17 04:09
[2017-07-14 08:11] LABS: Basophils % (Auto) 0.3 % (0.0-1.8); Eosinophils % (Auto) 0.1 % (0.0-4.3); Hematocrit 31.2 % (30.3-42.9); Hemoglobin 10.3 gm/dl (10.1-14.3); Mean Corpuscular HGB Conc 33 % (30-34); Mean Corpuscular Hemoglobin 28 pg (28-32); Mean Corpuscular Volume 85 fl (79-97); Platelet Count 226 K/mm3 (140-440); Red Blood Count 3.66 M/mm3 (3.65-5.03); Red Cell Distribution Width 13.3 % (13.2-15.2); White Blood Count 9.6 K/mm3 (4.5-11.0)
[2017-07-14 08:27] LABS: Calcium 8.2 mg/dL (8.4-10.2); Chloride 101.7 mmol/L (98-107); Potassium 4.7 mmol/L (3.6-5.0)
[2017-07-14] MEDS: WELLBUTRIN SR PO SCH (09:12)
[2017-07-14] MEDS: NOVOLOG SUB-Q SCH ×2 (09:13→13:16)
--- NOTE | 2017-07-14 11:07 | Consultation ---
History of Present Illness - Reason for Consult Consult date: 07/14/17 rash Requesting physician: TRISHA CARMONA - History of Present Illness 47 year old female history of uncontrolled diabetes, psoriasis, and neuropathy; admitted on 07/12/2017 due to week history of pruritic rash over bilateral arms bilateral legs abdomen. Patient reports that she is allergic to penicillin. Patient reports that 3 weeks ago she went to [facility] emergency room due to an upper respiratory infection and she was given Augmentin. She forgot about her penicillin allergy and started taking the Augmentin. The rashes started 3 days after starting augmentin. Three days before admission, she noted some subjective fever and the rash became worse in the legs with areas of blistering in her feet. In the Emergency Room, initial temperature Was 96 8.6, Heart Rate 12, Blood Pressure 153/68. Initial White Count 9.1. Hemoglobin 11.5. Platelets 252. Creatinine 1.7. Urinalysis Is Negative. A1C 13. Glucose >250s. Microbiology: none Current Antimicrobials: none Past History Past Medical History: diabetes, hyperlipidemia, other (neuropathy) Medications and Allergies Allergies Allergy/AdvReac Type Severity Reaction Status Date / Time Penicillins Allergy Unknown Verified 01/15/17 17:55 IV contrast Allergy Rash Uncoded 01/15/17 17:55 Home Medications Medication Instructions Recorded Confirmed Last Taken Type AtorvaSTATin [Lipitor] 20 mg PO DAILY 09/19/15 07/13/17 11/07/15 History 20 MG Insulin Glargine [Lantus] 25 unit SUB-Q QHS 09/19/15 07/13/17 11/07/15 History 25 UNIT Lisinopril [Zestril TAB] 10 mg PO QDAY 09/19/15 07/13/17 11/07/15 History 10 MG Ranitidine HCl [Zantac 300 MG TAB] 300 mg PO QPM 09/19/15 07/13/17 11/07/15 History 300 MG buPROPion SR [Wellbutrin Sr] 150 mg PO QAM 09/19/15 07/13/17 11/07/15 History 150 MG Ketorolac [Toradol] 10 mg PO Q6H PRN #20 tablet 10/16/15 07/13/17 11/07/15 Rx 10 MG HYDROcodone/APAP 5-325 [[place] 1 each PO Q6HR PRN #20 tablet 10/22/15 07/13/17 Rx 5/325] 1 EACH ALBUTEROL Inhaler [ProAir HFA 2 puff IH QID PRN #1 inhalation 11/07/15 07/13/17 Unknown Rx Inhaler] HYDROcodone/APAP 10-325 [[place] 1 each PO Q8HR PRN #20 tablet 11/07/15 07/13/17 Unknown Rx 10-325 mg TAB] Ibuprofen [Motrin] 600 mg PO Q6H PRN #20 tablet 12/19/15 07/13/17 Unknown Rx Insulin Lispro [Humalog] 15 unit SQ TID 07/13/17 07/13/17 Unknown History Active Meds: Active Medications Acetaminophen (Tylenol) 650 mg PO Q4H PRN PRN Reason: Pain MILD(1-3)/Fever >100.5/[place] Acetaminophen/Hydrocodone Bitart ([place] 10/325) 1 each PO Q8H PRN PRN Reason: SEVERE PAIN (7-10) Last Admin: 07/13/17 14:22 Dose: 1 each Albuterol (Proventil) 2.5 mg IH Q4H PRN PRN Reason: Shortness Of Breath Atorvastatin Calcium (Lipitor) 20 mg PO DAILY [facility] Last Admin: 07/14/17 09:12 Dose: 20 mg Bupropion HCl (Wellbutrin Sr) 150 mg PO QAM [facility] Last Admin: 07/14/17 09:12 Dose: 150 mg Dextrose (D50w (25gm) Syringe) 50 ml IV PRN PRN PRN Reason: Hypoglycemia Diphenhydramine HCl (Benadryl) 25 mg IV Q6H PRN PRN Reason: Rash Last Admin: 07/14/17 06:42 Dose: 25 mg Famotidine (Pepcid) 20 mg PO QHS [facility] Last Admin: 07/13/17 23:19 Dose: 20 mg Heparin Sodium (Porcine) (Heparin) 5,000 unit SUB-Q Q8HR [facility] Last Admin: 07/14/17 05:51 Dose: Not Given Hydralazine HCl (Apresoline) 5 mg IV Q6HR PRN PRN Reason: Blood Pressure Hydromorphone HCl (Dilaudid) 0.5 mg IV Q3H PRN PRN Reason: Pain , Severe (7-10) Sodium Chloride (Nacl 0.9% 1000 Ml) 1,000 mls @ 100 mls/hr IV DIRECT [facility] Last Admin: 07/14/17 06:56 Dose: 100 mls/hr Influenza Virus Vaccine Quadrival (Fluarix Quad [id number](36 Mos+) 0.5 ml IM .ONCE ONE Stop: 07/14/17 12:01 Insulin Aspart (Novolog) 15 units SUB-Q ACHS [facility] Last Admin: 07/14/17 09:13 Dose: 15 units Insulin Detemir (Levemir) 25 units SUB-Q QHS [facility] Last Admin: 07/13/17 23:20 Dose: 25 units Ondansetron HCl (Zofran) 4 mg IV Q8H PRN PRN Reason: N/V unrelieved by Reglan Review of Systems All systems: negative (as per HPI rest neg) Physical Examination - Physical Exam Narrative exam: General appearance: Alert in NAD, conversant Eyes: anicteric sclerae, moist conjunctivae; no lid-lag; PERRLA HENT: Atraumatic; oropharynx clear with moist mucous membranes and no mucosal ulcerations/no oral thrush; normal hard and soft palate. Normal external ears. Neck: Trachea midline; supple, no thyromegaly or lymphadenopathy Lungs: CTA, with normal respiratory effort and no intercostal retractions CV: RRR, no murmurs Abdomen: Soft, non-tender; no masses or hepatosplenomegaly Extremities: No peripheral edema or extremity lymphadenopathy Skin: abdomen, back and bilateral arms and legs papulo-nodular erythematous rash with blistering/bulla caro feet Psych: Appropriate affect, alert and oriented to person, place and time. Neuro: alert and oriented x 3. Moving all extermities Lines: No CVL / PICC - Constitutional Vitals: Vital Signs Temp Pulse Resp BP Pulse Ox 97.9 F 81 20 155/80 95 07/14/17 08:13 07/14/17 08:13 07/14/17 08:13 07/14/17 08:13 07/14/17 08:13 Temperature -Last 24 Hours Temperature 97.9 F Temperature 97.8 F Temperature 98.4 F Temperature 97.9 F Results - Labs CBC & Chem 7: 07/14/17 07:37 07/14/17 07:37 Labs: Abnormal lab results 07/13/17 07/13/17 07/13/17 Range/Units 09:54 13:15 16:58 [place] % (Auto) (0.0-7.3) % Seg Neutrophils % (40.0-70.0) % Sodium (137-145) mmol/L Carbon Dioxide (22-30) mmol/L BUN (7-17) mg/dL Creatinine (0.7-1.2) mg/dL Glucose (65-100) mg/dL POC Glucose 406 H 317 H (70-105) Hemoglobin A1c 13.3 H (4-6) % Calcium (8.4-10.2) mg/dL 07/13/17 07/14/17 07/14/17 Range/Units 21:52 06:03 07:37 [place] % (Auto) 8.3 H (0.0-7.3) % Seg Neutrophils % 75.0 H (40.0-70.0) % Sodium (137-145) mmol/L Carbon Dioxide (22-30) mmol/L BUN (7-17) mg/dL Creatinine (0.7-1.2) mg/dL Glucose (65-100) mg/dL POC Glucose 397 H 379 H (70-105) Hemoglobin A1c (4-6) % Calcium (8.4-10.2) mg/dL 07/14/17 Range/Units 07:37 [place] % (Auto) (0.0-7.3) % Seg Neutrophils % (40.0-70.0) % Sodium 135 L (137-145) mmol/L Carbon Dioxide 21 L (22-30) mmol/L BUN 39 H (7-17) mg/dL Creatinine 1.6 H (0.7-1.2) mg/dL Glucose 419 H (65-100) mg/dL POC Glucose (70-105) Hemoglobin A1c (4-6) % Calcium 8.2 L (8.4-10.2) mg/dL Assessment and Plan Assessment: 1) Extensive pruritic maculopapular rash: likely penicillin allergy reaction to recent augmentin regime 2) DM-uncontrolled Plan: -avoid penicillin drugs -start solumedrol IV followed by PO medrol cee -agree with ratinidine and benadryl -monitor glucose on solumedrol -skin may take 2-3 weeks to recover -Derm eval if not better in 3-[address] King for your consultation, will follow up with you. Gail Padgett MD Infectious Diseases Specialist [facility] ([facility] M [phone] O [phone]
--- NOTE | 2017-07-14 11:18 | Discharge Summary ---
Providers - Providers Date of Admission: 07/13/17 09:31 Date of discharge: 07/14/17 Attending physician: TONYA COYLE MD 07/13/17 09:41 Consult to Dietitian/Nutrition [CONS] Routine Physician Instructions: Reason For Exam: Reason for Consult: Malnutrition Consult to Wound/ET Nurse [CONS] Routine Reason For Exam: wound eval Primary care physician: PHARMACEUTICAL PHYSICIAN Hospitalization Reason for admission: Penicillin allergic rash Condition: Stable Disposition: DC-01 TO HOME OR SELFCARE Time spent for discharge: 31 minutes Core Measure Documentation - Palliative Care Palliative Care/ Comfort Measures: Not Applicable - Core Measures Any of the following diagnoses?: none Exam - Constitutional Vitals: Temp Pulse Resp BP Pulse Ox 97.9 F 81 20 155/80 95 07/14/17 08:13 07/14/17 08:13 07/14/17 08:13 07/14/17 08:13 07/14/17 08:13 Plan Activity: no restrictions Weight Bearing Status: Full Weight Bearing Diet: low fat, low cholesterol, low salt, diabetic Wound: per wound nurse instructions Follow up with: PRIMARY CAREMD [Primary Care Provider] - 7 Days Prescriptions: Insulin Glargine [Lantus VIAL] 25 unit SUB-Q QHS #1 vial ALBUTEROL Inhaler [ProAir HFA Inhaler] 2 puff IH QID PRN #1 inhalation PRN Reason: Shortness Of Breath AtorvaSTATin [Lipitor] 20 mg PO DAILY #30 tablet buPROPion SR [Wellbutrin SR] 150 mg PO QAM #30 tablet diphenhydrAMINE [Benadryl CAP] 25 mg PO Q6HR PRN #40 capsule PRN Reason: Itching HYDROcodone/APAP 5-325 [[place] 5-325 mg TAB] 1 each PO Q6HR PRN #12 tablet PRN Reason: Pain Insulin Lispro [Humalog] 15 unit SQ TID #1 vial Lisinopril [Zestril TAB] 10 mg PO QDAY #30 tablet Prednisone [predniSONE 10 mg (6-Day Pack, 21 Tabs)] 10 mg PO .TAPER #1 tab.ds.pk Ranitidine HCl [Zantac 300 MG TAB] 300 mg PO BID #60 tablet
[2017-07-14] MEDS ORDERED: Fluarix Quad 2017-2018(36 MOS+ IM ONE (12:00)
[2017-07-14 14:36] VITALS: BP 183/94
--- NOTE | 2017-07-14 16:37 | Query- Nutrition ---
Irving Sales__Carlos Date:__07/14/2017 Edge Polisher/CDS:____Neisha Phone#:___[phone] Exercise your independent professional judgment when responding to query. Questions asked do not imply a particular answer is desired or expected. We greatly appreciate your clarification on this issue. Clinical Documentation States: 47 Year old female was admitted on 07/13/2017 for skin rash. Clinical Findings Show: BMI: 33 Albumin: 2.5 Please select the most appropriate option 3 [] Mild Malnutrition [] Mild - Moderate Malnutrition [x] Moderate - Severe Malnutrition [] Severe Malnutrition Serum Albumin 2.8 to 3.4 g/dl or Pre-albumin 5 to 17 mg/dl1,2 Inadequate nutritional intake1,2,3,4 NPO > 5 days Weight loss: 5% in 1 month or 7.5% in 3 months or 10% in 6 months1, 3,4 BMI 16 to 18.4 or Weight <90% of ideal body weight1,2,3,4 Serum Albumin < 2.8 g/ dl1,2 Lymphocytes < 1500/ L2 Inadequate nutritional intake3, high stress e.g. major trauma, sepsis,pancreatitis, villatoro etc. Decubitus ulcers1,2, , skin breakdown2, easy hair pluckability2 Weight <80% standard for height2 Triceps skin fold <3 mm2 Mid-arm muscle circumference <15 cm2 Creatinine-height index <60% standard2 [ ] Cachexia [ ] Emaciated w/Malnutrition [ ] Other: [ x] Unable to determine [ ] Comment/Explanation: Present on Admission: [ x] Yes (Y) [ ] Clinically undeterminable (W) [ ] No (N) Please also document response in your Progress Notes and/or Discharge Summary and indicate if the condition was present on admission. MTDD
--- NOTE | 2017-07-14 16:40 | Query- Renal Failure ---
Deacha Sales_Samina Date:__07/14/2017 Pony Ride Operator/CDS:___Neisha Phone#:__[phone] Exercise your independent professional judgment when responding to query. Questions asked do not imply a particular answer is desired or expected. We greatly appreciate your clarification on this issue. Clinical Documentation States: 47 Year old female was admitted on 07/12/2017 for skin rash. The Hospitalist H&P (Dr. King) states "- IVF for ARF." Clinical Findings Show: 07/12 07/14 Creatinine 1.7 1.6 Please clarify if you mean: Acute Renal Failure with or due to: [ ] Tubular Necrosis [ ] Medullary Necrosis [x ] Vasomotor Nephropathy [ ] Shock Kidney [ ] Tubular Nephrosis [ ] Renal Tubular Stasis [ ] Cortical Necrosis [ ] Acute Renal Failure (unspecified) [ ] Lower Tubular Nephrosis [ ] Other: [ ] Not Applicable Present on Admission: [x ] Yes (Y) [ ] Clinically undeterminable (W) [ ] No (N) Please also document response in your Progress Notes and/or Discharge Summary and indicate if the condition was present on admission. MTDD
[2017-07-14] MEDS ORDERED: DAKIN'S FULL STRENGTH TP SCH (22:00)
== END 2017-07-14 16:45 | disposition home or self-care (01) | DRG 682 ==
LOC: ED 22:33 → CC1 07-13 09:31 → 3A 07-13 13:19
PROVIDERS: ADMIT Internal Medicine; ATTEND Internal Medicine
PROC: 3E0234Z Introduction of Serum, Toxoid and Vaccine into Muscle, Percutaneous Approach (ICD-10-PCS; principal; 2017-07-14)
DX: N17.0 Acute kidney failure with tubular necrosis (principal); E43 Unspecified severe protein-calorie malnutrition; L27.0 Generalized skin eruption due to drugs and medicaments taken internally; L40.9 Psoriasis, unspecified; J45.909 Unspecified asthma, uncomplicated; T36.0X5A Adverse effect of penicillins, initial encounter; E11.65 Type 2 diabetes mellitus with hyperglycemia; E11.621 Type 2 diabetes mellitus with foot ulcer; E78.5 Hyperlipidemia, unspecified; Z89.431 Acquired absence of right foot; Z98.51 Tubal ligation status; Z88.0 Allergy status to penicillin; Z79.899 Other long term (current) drug therapy; Z79.4 Long term (current) use of insulin; Z91.041 Radiographic dye allergy status; Y92.89 Other specified places as the place of occurrence of the external cause; Z23 Encounter for immunization
CPT/HCPCS: 36415; 80048; 80053; 80061; 81001; 81025; 82805; 82962; 83036; 83690; 85025; 90686; 96374; 96375; 96376; A9270-GY; J0360; J1170; J1200; J1644; J1815; J1818; J2405; J2920; J2930; J7030

== ENCOUNTER 2017-08-13 13:10 | Emergency (ER) | payer MEDICAID ==
[2017-08-13 13:17] VITALS: BP 146/78
--- NOTE | 2017-08-13 14:18 | Emergency Department Report ---
Chief Complaint: Upper Respiratory Infection Stated Complaint: PAIN ON COUGHING Time Seen by Provider: 08/13/17 14:11 - HPI History of Present Illness: Patient is a 47-year-old female who is presenting with a cough for week. Patient states productive of green phlegm. Patient has had subjective fevers. Patient states that the last 3 days she has had post tussive emesis as well as not been able to keep much down. She here for evaluation of her cough. Denies sore throat diarrhea or body aches at this time - Exam Vital Signs: Vital Signs 08/13/17 13:15 Temperature 97.6 F Pulse Rate 92 H Respiratory 18 Rate Blood Pressure 146/78 O2 Sat by Pulse 98 Oximetry Physical Exam: Lungs clear to auscultation patient does have a bronchitic cough heart exam is normal with normal heart tones abdomen soft nontender neuro exam is within normal limits HEENT exam is normal with normal-appearing oropharynx and patient does not have sinus tenderness on palpation MSE screening note: Focused history and physical exam performed. Due to findings the following was ordered: ED Disposition for MSE Condition: Stable
[2017-08-13] MEDS ORDERED: TESSALON PERLES PO ONE (14:19)
[2017-08-13] MEDS ORDERED: ZOFRAN ODT PO ONE (14:19)
--- NOTE | 2017-08-13 14:53 | XRay Report ---
Chest 2 views: History: Cough. Findings: Normal cardiomediastinal silhouette. Trachea is midline. No consolidation, pneumothorax or pleural effusion. Impression: No acute cardiopulmonary findings.
--- NOTE | 2017-08-13 15:10 | Emergency Department Report ---
HPI - General Chief Complaint: Upper Respiratory Infection Time Seen by Provider: 08/13/17 14:11 - HPI HPI: 47-year-old female presents to ED complaining of cough congestion x several days SHe describes cough as intermittent throughout the day, runny nose, she states productive cough with yellowish mucous She denies fevers , chills, chest pains or shortness of breath or any other problems. ED Past Medical Hx - Past Medical History Hx Congestive Heart Failure: No Hx Diabetes: Yes Hx Asthma: Yes Hx COPD: No Hx HIV: No Additional medical history: psorasis. NEUROPATHY. FIBROIDS - Surgical History Additional Surgical History: X 1 , Hx. left wrist surgery 2 toes amputated r) foot. partial right foot amputation - Social History Smoking Status: Never Smoker Substance Use Type: None - Medications Home Medications: Home Medications Medication Instructions Recorded Confirmed Last Taken Type Ketorolac [Toradol] 10 mg PO Q6H PRN #20 tablet 10/16/15 07/13/17 11/07/15 Rx 10 MG HYDROcodone/APAP 10-325 [[place] 1 each PO Q8HR PRN #20 tablet 11/07/15 07/13/17 Unknown Rx 10-325 mg TAB] AtorvaSTATin [Lipitor] 20 mg PO DAILY #30 tablet 07/14/17 Unknown Rx HYDROcodone/APAP 5-325 [[place] 1 each PO Q6HR PRN #12 tablet 07/14/17 Unknown Rx 5-325 mg TAB] Insulin Glargine [Lantus VIAL] 25 unit SUB-Q QHS #1 vial 07/14/17 Unknown Rx Insulin Lispro [Humalog] 15 unit SQ TID #1 vial 07/14/17 Unknown Rx Lisinopril [Zestril TAB] 10 mg PO QDAY #30 tablet 07/14/17 Unknown Rx Prednisone [predniSONE 10 mg 10 mg PO .TAPER #1 tab.ds.pk 07/14/17 Unknown Rx (6-Day Pack, 21 Tabs)] Ranitidine HCl [Zantac 300 MG TAB] 300 mg PO BID #60 tablet 07/14/17 Unknown Rx buPROPion SR [Wellbutrin SR] 150 mg PO QAM #30 tablet 07/14/17 Unknown Rx diphenhydrAMINE [Benadryl CAP] 25 mg PO Q6HR PRN #40 capsule 07/14/17 Unknown Rx ALBUTEROL Inhaler [ProAir HFA 2 puff IH QID PRN #1 inhalation 08/13/17 Unknown Rx Inhaler] Azithromycin [Zithromax] 250 mg PO DAILY #1 pack 08/13/17 Unknown Rx Ibuprofen [Motrin 600 MG tab] 600 mg PO Q6H PRN #20 tablet 08/13/17 Unknown Rx predniSONE [Deltasone] 10 mg PO QDAY #4 tab 08/13/17 Unknown Rx ED Review of Systems ROS: Stated complaint: PAIN ON COUGHING Other details as noted in HPI Constitutional: denies: chills, fever Eyes: denies: eye pain, eye discharge, vision change ENT: denies: ear pain, throat pain Respiratory: cough. denies: shortness of breath, wheezing Cardiovascular: denies: chest pain, palpitations Endocrine: no symptoms reported Gastrointestinal: vomiting. denies: abdominal pain, nausea, diarrhea Genitourinary: denies: urgency, dysuria, discharge Musculoskeletal: denies: back pain, joint swelling, arthralgia Skin: denies: rash, lesions Neurological: denies: headache, weakness, paresthesias Psychiatric: denies: anxiety, depression Hematological/Lymphatic: denies: easy bleeding, easy bruising Physical Exam - Physical Exam Vital Signs: Vital Signs 08/13/17 13:15 Temperature 97.6 F Pulse Rate 92 H Respiratory 18 Rate Blood Pressure 146/78 O2 Sat by Pulse 98 Oximetry Physical Exam: GENERAL: Alert and oriented x3, no apparent distress, Normal Gait, atraumatic. HEAD: Head is normocephalic and a-traumatic. EYES: Extra ocular muscles are intact. Pupils are equal, round, and reactive to light and accommodation. EARS: symetrical, atraumatic, non tender, ear canal clear and moderate cerumen, tympanic membrance non inflamed. gross auditory nml bilaterally. NOSE: Nose symetrical, Nontender,Nares appeared normal. MOUTH:Mouth is well hydrated and without lesions. Tonsils nonerythematous or swollen, Uvula midline, Tongue not elevated. Mucous membranes are moist. Posterior pharynx clear, no exudate or lesions. Patent airways. NECK: Supple. Non edematous, No carotid bruits. No lymphadenopathy or thyromegaly. No C-spine tenderness LUNGS: Symetrical with respiration, No wheezing, no rales or crackles, CTAB. HEART: S1, S2 present, regular rate and rhythm without murmur, no rubs, no gallops. Non tender to palpation ABDOMEN: No organomegaly was noted,Positive bowel sounds, soft, and non- distended. . Nontender to palpation on all Quadrants, NO CVA tenderness. BACK: Full range of motion, no spinal tenderness, nontender to palpation. BREAST: Symetrical, Supple bilaterally, No Masses, lumps, lesions, ulcerations. GENITOURINARY: External genitalia without erythema, exudate or discharge. Vaginal vault is without discharge. Cervix is of normal color without lesion. Cervical os is closed. No bleeding noted. Uterus is noted to be of normal size and nontender. No cervical motion tenderness. No masses are palpated. The adnexa are without masses or tenderness. UROGENITAL: No scrotal mass, Scrotum non tender to palpation bilaterally, no hernia, no scars or penile discharge. EXTREMITIES/MUSCULOSKELETAL: No cyanosis, clubbing, rash, lesions or edema. Full ROM bilaterally. UE/LE Pulses 2+ bilaterally. LE and UE 5+ strength bilaterally, straight leg raise negative bilaterally NEUROLOGIC: The patient is cooperative with no focal neurologic deficits. Cranial nerves II through XII are grossly intact. Normal speech. Normal sensation in bilateral upper and lower extremities, No loss of sensation, No facial droop, Negative rhomberg. PSYCHIATRIC: Mood is congruent with affect, denies suicidal or homicidal ideations. SKIN: Warm and dry, No lesions, No ulceration or induration present. ED Course Vital Signs 08/13/17 13:15 Temperature 97.6 F Pulse Rate 92 H Respiratory 18 Rate Blood Pressure 146/78 O2 Sat by Pulse 98 Oximetry ED Medical Decision Making - Radiology Data Radiology results: report reviewed, image reviewed Ordering Physician: JAIMIE HIGGINS MD Date of Service: 08/13/17 Procedure(s): XR chest routine 2V Accession Number(s): [id number] cc: JAIMIE HIGGINS MD Fluoro Time In Minutes: Chest 2 views: History: Cough. Findings: Normal cardiomediastinal silhouette. Trachea is midline. No consolidation, pneumothorax or pleural effusion. Impression: No acute cardiopulmonary findings. Transcribed By: PTP Dictated By: AVELINO SHIN MD Electronically Authenticated By: AVELINO SHIN MD Signed Date/Time: 08/13/17 2931 - Medical Decision Making A 47-year-old female presents with upper respiratory infection ED course: Chest x-ray ordered. Chest x-ray shows no abnormal findings I discussed this with the patient. She has a smoker's I will be giving her some antibiotics for prophylaxis I discussed with the patient that she has an upper respiratory infection and will go home on medication for symptomatic relief. I discussed the patient and follow-up with primary care physician. Vital signs are normal patient is in acute distress I discussed the patient to return to ED if worsening or new onset of symptoms. Critical care attestation.: If time is entered above; I have spent that time in minutes in the direct care of this critically ill patient, excluding procedure time. ED Disposition Clinical Impression: URI (upper respiratory infection) Qualifiers: URI type: unspecified URI Qualified Code(s): J06.9 - Acute upper respiratory infection, unspecified Disposition: - TO HOME OR SELFCARE Is pt being admited?: No Does the pt Need Aspirin: No Condition: Stable Instructions: Upper Respiratory Infection (ED), Chronic Bronchitis (ED), Acute Cough (ED) Additional Instructions: Make sure to follow up with the primary care physician as discussed. Take all your medications as you've been prescribed. If you have any worsening symptoms or develop new symptoms please return to ED immediately. Prescriptions: ALBUTEROL Inhaler [ProAir HFA Inhaler] 2 puff IH QID PRN #1 inhalation PRN Reason: Shortness Of Breath Azithromycin [Zithromax] 250 mg PO DAILY #1 pack Ibuprofen [Motrin 600 MG tab] 600 mg PO Q6H PRN #20 tablet PRN Reason: Pain predniSONE [Deltasone] 10 mg PO QDAY #4 tab Referrals: PRIMARY CARE, [Primary Care Provider] - 3-5 Days [facility] [Outside] - 3-5 Days [facility] [Outside] - 3-5 Days [facility] [Outside] - 3-5 Days Forms: Accompanied Note, Work/School Release Form(ED) Time of Disposition: 15:12
== END 2017-08-13 15:41 | disposition home or self-care (01) ==
LOC: ED 13:10
DX: J06.9 Acute upper respiratory infection, unspecified (principal); E11.9 Type 2 diabetes mellitus without complications; J45.909 Unspecified asthma, uncomplicated
CPT/HCPCS: 71020; 99283; Q0162

== ENCOUNTER 2017-11-25 09:34 | Emergency (ER) | payer MEDICAID ==
[2017-11-25] MEDS ORDERED: TYLENOL PO ONE (12:34)
[2017-11-25] MEDS ORDERED: CATAPRES PO ONE (12:35)
[2017-11-25] MEDS ORDERED: ZOFRAN ODT PO ONE (12:40)
--- NOTE | 2017-11-25 12:42 | Emergency Department Report ---
ED Headache HPI - General Chief Complaint: Headache Stated Complaint: HEADACHE/NAUSEA/VOMITING Time Seen by Provider: 11/25/17 12:31 - History of Present Illness Initial Comments: This is a 47-year-old female nontoxic, well nourished in appearance, no acute signs of distress presents to the ED with c/o of intermittent headache x3 weeks. Patient describes pain as aching diffuse with level of 8/10. Patient denies any stiff neck. Patient stated this morning developed nausea and vomited x1 episode. Patient denies thunderclap headache. Patient denies any head trauma. Patient denies any abdominal pain, fever, chills, headache, nausea, vomiting, chest pain, shortness of breathe, numbness, tingling, back pain. Patient denies any blurry vision. Patient states allergies to PCN with PMH of DM , HTN, and high cholesterol. Patient states she is out of her lisinopril 10 mg daily. Patient is asking for refill of medication. Timing/Duration: episodic Head Injury Location: other (diffuse) Recent Head Trauma: no recent headache/trauma, frequent headaches Associated Symptoms: nausea/vomiting. denies: confusion, fatigue, facial pain, fever/chills, flushing, loss of consciousness, nasal congestion, nasal drainage , numbness in legs/feet, rash, seizures, sinus infection, stiff neck, vision changes, weakness Allergies/Adverse Reactions: Allergies Penicillins Allergy (Verified 01/15/17 17:55) Unknown IV contrast Allergy (Uncoded 01/15/17 17:55) Rash Home Medications: Ambulatory Orders Ketorolac [Toradol] 10 mg PO Q6H PRN #20 tablet 10/16/15 HYDROcodone/APAP 10-325 [[place] 10-325 mg TAB] 1 each PO Q8HR PRN #20 tablet 04/16 AtorvaSTATin [Lipitor] 20 mg PO DAILY #30 tablet 07/14/17 HYDROcodone/APAP 5-325 [[place] 5-325 mg TAB] 1 each PO Q6HR PRN #12 tablet Insulin Glargine [Lantus VIAL] 25 unit SUB-Q QHS #1 vial 07/14/17 Lisinopril [Zestril TAB] 10 mg PO QDAY #30 tablet 07/14/17 Lispro Insulin [Humalog] 15 unit SQ TID #1 vial 07/14/17 Prednisone [predniSONE 10 mg (6-Day Pack, 21 Tabs)] 10 mg PO .TAPER #1 tab.ds.pk 07/14/17 Ranitidine HCl [Zantac 300 MG TAB] 300 mg PO BID #60 tablet 07/14/17 buPROPion SR [Wellbutrin SR] 150 mg PO QAM #30 tablet 07/14/17 diphenhydrAMINE [Benadryl CAP] 25 mg PO Q6HR PRN #40 capsule 07/14/17 ALBUTEROL Inhaler [ProAir HFA Inhaler] 2 puff IH QID PRN #1 inhalation 08/13/17 Azithromycin [Zithromax] 250 mg PO DAILY #1 pack 08/13/17 Ibuprofen [Motrin 600 MG tab] 600 mg PO Q6H PRN #20 tablet 08/13/17 predniSONE [Deltasone] 10 mg PO QDAY #4 tab 08/13/17 Lisinopril [Zestril] 10 mg PO DAILY #30 tablet 11/25/17 ED Review of Systems ROS: Stated complaint: HEADACHE/NAUSEA/VOMITING Other details as noted in HPI Constitutional: denies: chills, fever Eyes: denies: eye pain, eye discharge, vision change ENT: denies: ear pain, throat pain Respiratory: denies: cough, shortness of breath, wheezing Cardiovascular: denies: chest pain, palpitations Endocrine: no symptoms reported Gastrointestinal: denies: abdominal pain, nausea, diarrhea Genitourinary: denies: urgency, dysuria, discharge Musculoskeletal: denies: back pain, joint swelling, arthralgia Skin: denies: rash, lesions Neurological: headache. denies: weakness, paresthesias Psychiatric: denies: anxiety, depression Hematological/Lymphatic: denies: easy bleeding, easy bruising ED Past Medical Hx - Past Medical History Hx Hypertension: Yes Hx Congestive Heart Failure: No Hx Diabetes: Yes Hx Asthma: Yes Hx COPD: No Hx HIV: No Additional medical history: psorasis. NEUROPATHY. FIBROIDS - Surgical History Additional Surgical History: X 1 , Hx. left wrist surgery 2 toes amputated r) foot. partial right foot amputation - Social History Smoking Status: Former Smoker Substance Use Type: None - Medications Home Medications: Home Medications Medication Instructions Recorded Confirmed Last Taken Type Ketorolac [Toradol] 10 mg PO Q6H PRN #20 tablet 10/16/15 07/13/17 11/07/15 Rx 10 MG HYDROcodone/APAP 10-325 [[place] 1 each PO Q8HR PRN #20 tablet 11/07/15 07/13/17 Unknown Rx 10-325 mg TAB] AtorvaSTATin [Lipitor] 20 mg PO DAILY #30 tablet 07/14/17 Unknown Rx HYDROcodone/APAP 5-325 [[place] 1 each PO Q6HR PRN #12 tablet 07/14/17 Unknown Rx 5-325 mg TAB] Insulin Glargine [Lantus VIAL] 25 unit SUB-Q QHS #1 vial 07/14/17 Unknown Rx Lisinopril [Zestril TAB] 10 mg PO QDAY #30 tablet 07/14/17 Unknown Rx Lispro Insulin [Humalog] 15 unit SQ TID #1 vial 07/14/17 Unknown Rx Prednisone [predniSONE 10 mg 10 mg PO .TAPER #1 tab.ds.pk 07/14/17 Unknown Rx (6-Day Pack, 21 Tabs)] Ranitidine HCl [Zantac 300 MG TAB] 300 mg PO BID #60 tablet 07/14/17 Unknown Rx buPROPion SR [Wellbutrin SR] 150 mg PO QAM #30 tablet 07/14/17 Unknown Rx diphenhydrAMINE [Benadryl CAP] 25 mg PO Q6HR PRN #40 capsule 07/14/17 Unknown Rx ALBUTEROL Inhaler [ProAir HFA 2 puff IH QID PRN #1 inhalation 08/13/17 Unknown Rx Inhaler] Azithromycin [Zithromax] 250 mg PO DAILY #1 pack 08/13/17 Unknown Rx Ibuprofen [Motrin 600 MG tab] 600 mg PO Q6H PRN #20 tablet 08/13/17 Unknown Rx predniSONE [Deltasone] 10 mg PO QDAY #4 tab 08/13/17 Unknown Rx Lisinopril [Zestril] 10 mg PO DAILY #30 tablet 11/25/17 Unknown Rx ED Physical Exam - General Limitations: No Limitations General appearance: alert, in no apparent distress - Head Head exam: Present: atraumatic, normocephalic - Eye Eye exam: Present: normal appearance, PERRL, EOMI Pupils: Present: normal accommodation - ENT ENT exam: Present: normal exam, mucous membranes moist - Neck Neck exam: Present: normal inspection, full ROM. Absent: tenderness, meningismus, lymphadenopathy, thyromegaly - Respiratory Respiratory exam: Present: normal lung sounds bilaterally. Absent: respiratory distress, wheezes, rales, rhonchi, stridor, chest wall tenderness, accessory muscle use, decreased breath sounds, prolonged expiratory - Cardiovascular Cardiovascular Exam: Present: regular rate, normal rhythm, normal heart sounds. Absent: irregular rhythm, systolic murmur, diastolic murmur, rubs, gallop - GI/Abdominal GI/Abdominal exam: Present: soft, normal bowel sounds. Absent: distended, tenderness, guarding, rebound, rigid, diminished bowel sounds - Rectal Rectal exam: Present: deferred - Extremities Exam Extremities exam: Present: normal inspection, full ROM, normal capillary refill. Absent: tenderness, calf tenderness - Back Exam Back exam: Present: normal inspection, full ROM - Neurological Exam Neurological exam: Present: alert, oriented X3, CN II-XII intact, normal gait, reflexes normal - Expanded Neurological Exam Expanded Patient oriented to: Present: person, place, time Cranial nerves: EOM's Intact: Normal, Gag Reflex: Normal, Tongue Deviation: Normal, Facial Sensation: Normal, Facial Palsy with Forehead Movement: Normal, Facial Palsy without Forehead Movement: Normal Cerebellar function: Finger to Nose: Normal Upper motor neuron: Pronator Drift: Normal, Sensory Extinction: Normal Sensory exam: Upper Extremity Light Touch: Normal, Upper Extremity Pin Prick: Normal, Upper Extremity Temperature: Normal, UE 2 Point Discrimination: Normal, Lower Extremity Light Touch: Normal, Lower Extremity Pin Prick: Normal, Lower Extremity Temperature: Normal, LE 2 Point Discrimination: Normal Motor strength exam: RUE: 5, LUE: 5, RLE: 5, LLE: 5 DTR: bicep (R): 2+, bicep (L): 2+, tricep (R): 2+, tricep (L): 2+, knee (R): 2+ , knee (L): 2+, ankle (R): 2+, ankle (L): 2+ Best Eye Response ([place]): (4) open spontaneously Best Motor Response ([place]): (6) obeys commands Best Verbal Response ([place]): (5) oriented [place] Total: 15 - Psychiatric Psychiatric exam: Present: normal affect, normal mood - Skin Skin exam: Present: warm, dry, intact, normal color. Absent: rash ED Course Vital Signs 11/25/17 11:24 Temperature 98.1 F Pulse Rate 94 H Respiratory 16 Rate Blood Pressure 181/100 O2 Sat by Pulse 99 Oximetry - Reevaluation(s) Reevaluation #1: 11/25/17 12:49 Patient is speaking in full sentences with no signs of distress noted. - Consultations Consultation #1: 11/25/17 13:44 Patient has been consulted with Dr. Bernard V about patient history, physical exam, and labs and agrees to ED plan of care and admission. Consultation #2: 11/25/17 13:45 Dr. Herrera was consulted about patient and accepts patient to his services. ED Medical Decision Making - Lab Data Result diagrams: 11/25/17 12:57 11/25/17 12:57 - Medical Decision Making This is a 47-year-old female that presents with acute kidney damage and uncontrolled HTN. Patient is stable and was examined by me. Head CT obtained and within normal limits and dictated by the radiologist within normal limits. Patient received 975 mg of Tylenol symptoms of headache has subsided. Labs obtained with abnormal GFR and creatinine level. Dr. Wagner was consulted and agrees for admission. Patient was given Catapress in the ED. Patient was discussed with Dr. Herrera and accepts patient to his services. Patient was put on montior. At time of admission, the patient does not seem toxic or ill in appearance. No acute signs of distress noted. Patient agrees to admission treatment plan of care. No further questions noted by the patient. Patient decided to leave AMA. I explained to the patient that this is very serious and can be life threatening but patient refused and stated she will return if symptoms worsen. Patient also got a refill of her lisinopril that she takes daily. Critical care attestation.: If time is entered above; I have spent that time in minutes in the direct care of this critically ill patient, excluding procedure time. ED Disposition Clinical Impression: Acute kidney injury, Uncontrolled hypertension Headache Qualifiers: Headache type: unspecified Headache chronicity pattern: acute headache Intractability: not intractable Qualified Code(s): R51 - Headache Disposition: DC-07 LEFT AGAINST MED ADVICE Is pt being admited?: No Does the pt Need Aspirin: No Condition: Stable Instructions: Hypertension (ED), End-Stage Kidney Disease (ED) Additional Instructions: Follow-up with a primary care doctor in 24 hours or if symptoms worsen and continue return to emergency room as soon as possible. Prescriptions: Lisinopril [Zestril] 10 mg PO DAILY #30 tablet Referrals: [facility] [Outside] - 3-5 Days [facility] [Outside] - 3-5 Days LOBO HIRSCH MD [Staff Physician] - 24 Hours PRIMARY CARE, [Primary Care Provider] - 24 Hours
[2017-11-25 13:07] LABS: Bilirubin,Urine NEG (Negative); Blood,Urine NEG (Negative); Color,Urine Yellow (Yellow); Hyaline Casts,Urine 1 /LPF; Mucus,Urine FEW /HPF; Protein,Urine >500 mg/dL (Negative); Urobilinogen,Urine < 2.0 mg/dL (<2.0)
--- NOTE | 2017-11-25 13:10 | Cat Scan Report ---
CT HEAD WITHOUT CONTRAST: HISTORY: Headache. TECHNIQUE: Sequential 2.5mm CT images. COMPARISON: none. FINDINGS: Cerebral Parenchyma: Within normal limits. Cerebellum: Within normal limits. Brainstem: Within normal limits. Ventricles: Normal. Sella: Normal. Extra-axial spaces: Normal. Basal Cisterns: Normal. Intracranial Hemorrhage: None. Midline Shift: None. Calvarium: Normal. The bilateral occipital bones are cut off the [id number] which limits evaluation in this area. No gross calvarial abnormality appreciated. Sinuses: Normal. Mastoid Air Cells: Normal. Visualized Orbits: Normal. IMPRESSION: Cranial CT scan within normal limits.
[2017-11-25 13:19] LABS: Basophils # (Auto) 0.1 K/mm3 (0.0-0.1); Basophils % (Auto) 0.8 % (0.0-1.8); Eosinophils # (Auto) 0.1 K/mm3 (0.0-0.4); Hematocrit 36.7 % (30.3-42.9); Hemoglobin 11.6 gm/dl (10.1-14.3); Lymphocytes # (Auto) 2.4 K/mm3 (1.2-5.4); Lymphocytes % (Auto) 31.1 % (13.4-35.0); Mean Corpuscular HGB Conc 32 % (30-34); Mean Corpuscular Hemoglobin 26 pg (28-32); Mean Corpuscular Volume 84 fl (79-97); Monocytes # (Auto) 0.4 K/mm3 (0.0-0.8); Monocytes % (Auto) 5.5 % (0.0-7.3); Platelet Count 237 K/mm3 (140-440); Red Blood Count 4.39 M/mm3 (3.65-5.03); Red Cell Distribution Width 15.2 % (13.2-15.2)
[2017-11-25 13:24] LABS: Calcium 8.3 mg/dL (8.4-10.2)
[2017-11-25 13:27] LABS: Alanine Aminotransferase 9 units/L (7-56); Albumin 2.3 g/dL (3.9-5)
[2017-11-25 13:29] LABS: Bilirubin,Direct < 0.2 mg/dL (0-0.2)
[2017-11-25 14:29] VITALS: BP 121/71
== END 2017-11-25 14:29 | disposition left against medical advice (07) ==
LOC: ED 09:34
DX: N17.9 Acute kidney failure, unspecified (principal); I10 Essential (primary) hypertension; R51 Headache; E11.9 Type 2 diabetes mellitus without complications; J45.909 Unspecified asthma, uncomplicated; G62.9 Polyneuropathy, unspecified; Z87.891 Personal history of nicotine dependence; Z88.0 Allergy status to penicillin; Z91.041 Radiographic dye allergy status; Z89.431 Acquired absence of right foot
CPT/HCPCS: 36415; 70450; 80048; 80074; 81001; 85025; Q0162

== ENCOUNTER 2018-03-02 14:49 | Emergency (ER) | payer MEDICAID ==
[2018-03-02] MEDS ORDERED: MOTRIN PO ONE (15:28)
[2018-03-02] MEDS ORDERED: CATAPRES PO ONE (15:28)
--- NOTE | 2018-03-02 16:12 | Emergency Department Report ---
ED Neck Pain/Injury HPI - General Chief Complaint: Neck Pain/Injury Stated Complaint: NECK PAIN AND LEFT SHOULDER PAIN Time Seen by Provider: 03/02/18 15:22 Mode of arrival: Ambulatory Limitations: No Limitations - History of Present Illness Initial Comments: This is a 47-year-old female resident of neck pain times one day. Patient stated that she woke up with pain and worsened through the day. Patient denies any trauma. Patient denies any headache or stiff neck. She stated it is aggravated with movement. He denies any chest pain, shortness of breath, fever , chills, nausea, vomiting, headache or stiff neck. Patient states allergies to penicillin. Past medical history includes hypertension, diabetes. Patient stated that she is out of her medication as currently takes for her diabetes and hypertension like to get a prescription for it. MD Complaint: neck pain -: days(s) (1) Place: home Radiation: right shoulder Severity: mild Severity scale (0 -10): 8 Quality: aching Consistency: constant Improves With: rest supine Worsens With: movement of neck Associated Symptoms: none. denies: headache, fever, numbness, tingling, weakness, vertigo, difficulty walking, swollen glands, difficulty swallowing, nausea, vomiting Treatments Prior to Arrival: none - Related Data Previous Rx's Medication Instructions Recorded Last Taken Type Ketorolac [Toradol] 10 mg PO Q6H PRN #20 tablet 10/16/15 11/07/15 Rx 10 MG HYDROcodone/APAP 10-325 [Tully 1 each PO Q8HR PRN #20 tablet 11/07/15 Unknown Rx 10-325 mg TAB] AtorvaSTATin [Lipitor] 20 mg PO DAILY #30 tablet 07/14/17 Unknown Rx HYDROcodone/APAP 5-325 [Tully 1 each PO Q6HR PRN #12 tablet 07/14/17 Unknown Rx 5-325 mg TAB] Insulin Glargine [Lantus VIAL] 25 unit SUB-Q QHS #1 vial 07/14/17 Unknown Rx Lisinopril [Zestril TAB] 10 mg PO QDAY #30 tablet 07/14/17 Unknown Rx Lispro Insulin [Humalog] 15 unit SQ TID #1 vial 07/14/17 Unknown Rx Prednisone [predniSONE 10 mg 10 mg PO .TAPER #1 tab.ds.pk 07/14/17 Unknown Rx (6-Day Pack, 21 Tabs)] Ranitidine HCl [Zantac 300 MG TAB] 300 mg PO BID #60 tablet 07/14/17 Unknown Rx buPROPion SR [Wellbutrin SR] 150 mg PO QAM #30 tablet 07/14/17 Unknown Rx diphenhydrAMINE [Benadryl CAP] 25 mg PO Q6HR PRN #40 capsule 07/14/17 Unknown Rx ALBUTEROL Inhaler [ProAir HFA 2 puff IH QID PRN #1 inhalation 08/13/17 Unknown Rx Inhaler] Azithromycin [Zithromax] 250 mg PO DAILY #1 pack 08/13/17 Unknown Rx Ibuprofen [Motrin 600 MG tab] 600 mg PO Q6H PRN #20 tablet 08/13/17 Unknown Rx predniSONE [Deltasone] 10 mg PO QDAY #4 tab 08/13/17 Unknown Rx Lisinopril [Zestril] 10 mg PO DAILY #30 tablet 11/25/17 Unknown Rx Cyclobenzaprine [Flexeril] 10 mg PO BID PRN #14 tablet 03/02/18 Unknown Rx Ibuprofen [Motrin] 600 mg PO Q8H PRN #30 tablet 03/02/18 Unknown Rx Lisinopril [Zestril TAB] 10 mg PO QDAY #30 tablet 03/02/18 Unknown Rx Lispro Insulin [Humalog] 15 units SQ TID #1 vial 03/02/18 Unknown Rx Allergies Allergy/AdvReac Type Severity Reaction Status Date / Time Penicillins Allergy Unknown Verified 01/15/17 17:55 IV contrast Allergy Rash Uncoded 01/15/17 17:55 ED Review of Systems ROS: Stated complaint: NECK PAIN AND LEFT SHOULDER PAIN Other details as noted in HPI Constitutional: denies: chills, fever Eyes: denies: eye pain, eye discharge, vision change ENT: denies: ear pain, throat pain Respiratory: denies: cough, shortness of breath, wheezing Cardiovascular: denies: chest pain, palpitations Endocrine: no symptoms reported Gastrointestinal: denies: abdominal pain, nausea, diarrhea Genitourinary: denies: urgency, dysuria, discharge Musculoskeletal: denies: back pain, joint swelling, arthralgia Skin: denies: rash, lesions Neurological: denies: headache, weakness, paresthesias Psychiatric: denies: anxiety, depression Hematological/Lymphatic: denies: easy bleeding, easy bruising ED Past Medical Hx - Past Medical History Hx Hypertension: Yes Hx Congestive Heart Failure: No Hx Diabetes: Yes Hx Renal Disease: Yes (abnormal labs) Hx Asthma: Yes Hx COPD: No Hx HIV: No Additional medical history: psorasis. NEUROPATHY. FIBROIDS - Surgical History Additional Surgical History: X 1 , Hx. left wrist surgery 2 toes amputated r) foot. partial right foot amputation - Social History Smoking Status: Never Smoker Substance Use Type: None - Medications Home Medications: Home Medications Medication Instructions Recorded Confirmed Last Taken Type Ketorolac [Toradol] 10 mg PO Q6H PRN #20 tablet 10/16/15 07/13/17 11/07/15 Rx 10 MG HYDROcodone/APAP 10-325 [Tully 1 each PO Q8HR PRN #20 tablet 11/07/15 07/13/17 Unknown Rx 10-325 mg TAB] AtorvaSTATin [Lipitor] 20 mg PO DAILY #30 tablet 07/14/17 Unknown Rx HYDROcodone/APAP 5-325 [Tully 1 each PO Q6HR PRN #12 tablet 07/14/17 Unknown Rx 5-325 mg TAB] Insulin Glargine [Lantus VIAL] 25 unit SUB-Q QHS #1 vial 07/14/17 Unknown Rx Lisinopril [Zestril TAB] 10 mg PO QDAY #30 tablet 07/14/17 Unknown Rx Lispro Insulin [Humalog] 15 unit SQ TID #1 vial 07/14/17 Unknown Rx Prednisone [predniSONE 10 mg 10 mg PO .TAPER #1 tab.ds.pk 07/14/17 Unknown Rx (6-Day Pack, 21 Tabs)] Ranitidine HCl [Zantac 300 MG TAB] 300 mg PO BID #60 tablet 07/14/17 Unknown Rx buPROPion SR [Wellbutrin SR] 150 mg PO QAM #30 tablet 07/14/17 Unknown Rx diphenhydrAMINE [Benadryl CAP] 25 mg PO Q6HR PRN #40 capsule 07/14/17 Unknown Rx ALBUTEROL Inhaler [ProAir HFA 2 puff IH QID PRN #1 inhalation 08/13/17 Unknown Rx Inhaler] Azithromycin [Zithromax] 250 mg PO DAILY #1 pack 08/13/17 Unknown Rx Ibuprofen [Motrin 600 MG tab] 600 mg PO Q6H PRN #20 tablet 08/13/17 Unknown Rx predniSONE [Deltasone] 10 mg PO QDAY #4 tab 08/13/17 Unknown Rx Lisinopril [Zestril] 10 mg PO DAILY #30 tablet 11/25/17 Unknown Rx Cyclobenzaprine [Flexeril] 10 mg PO BID PRN #14 tablet 03/02/18 Unknown Rx Ibuprofen [Motrin] 600 mg PO Q8H PRN #30 tablet 03/02/18 Unknown Rx Lisinopril [Zestril TAB] 10 mg PO QDAY #30 tablet 03/02/18 Unknown Rx Lispro Insulin [Humalog] 15 units SQ TID #1 vial 03/02/18 Unknown Rx ED Physical Exam - General Limitations: No Limitations General appearance: alert, in no apparent distress - Head Head exam: Present: atraumatic, normocephalic - Eye Eye exam: Present: normal appearance Pupils: Present: normal accommodation - ENT ENT exam: Present: normal exam, mucous membranes moist - Neck Neck exam: Present: normal inspection, full ROM. Absent: tenderness, meningismus, lymphadenopathy - Respiratory Respiratory exam: Present: normal lung sounds bilaterally. Absent: respiratory distress, wheezes, rales, rhonchi, stridor, chest wall tenderness, accessory muscle use, decreased breath sounds, prolonged expiratory - Cardiovascular Cardiovascular Exam: Present: regular rate, normal rhythm, normal heart sounds. Absent: irregular rhythm, systolic murmur, diastolic murmur, rubs, gallop - GI/Abdominal GI/Abdominal exam: Present: soft, normal bowel sounds. Absent: distended, tenderness, guarding, rebound, rigid, diminished bowel sounds - Rectal Rectal exam: Present: deferred - Extremities Exam Extremities exam: Present: normal inspection, full ROM, normal capillary refill. Absent: tenderness - Back Exam Back exam: Present: normal inspection, full ROM, paraspinal tenderness (right paracervical area). Absent: tenderness, CVA tenderness (R), CVA tenderness (L) , muscle spasm, vertebral tenderness, rash noted - Expanded Back Exam Expanded Back exam: Absent: saddle anesthesia Back exam: Negative Straight Leg Raising: Left, Right - Neurological Exam Neurological exam: Present: alert, oriented X3, normal gait - Psychiatric Psychiatric exam: Present: normal affect, normal mood - Skin Skin exam: Present: warm, dry, intact, normal color. Absent: rash ED Course Vital Signs 03/02/18 03/02/18 03/02/18 15:03 15:46 15:51 Temperature 98.3 F 99.1 F Pulse Rate 92 H 83 83 Respiratory 18 16 Rate Blood Pressure 201/104 198/106 Blood Pressure 198/106 [Left] O2 Sat by Pulse 98 98 Oximetry - Reevaluation(s) Reevaluation #1: 03/02/18 16:11 Patient is speaking in full sentences with no signs of distress noted. ED Medical Decision Making - Medical Decision Making ED course; this is a 47-year-old female that presents with cervical muscle strain and HTN 1- patient was examined by me patient is stable. Nexus c-spine criteria negative for any imaging. 2- patient received ibuprofen and catapres in the ED with persistent symptoms are improving and are subsiding. 3- patient received ibuprofen and Flexeril at discharge and was instructed not to operate any machinery while taking Flexeril due to sebaceous drowsiness. 4- patient was instructed to Follow-up with your primary care doctor in 3-5 days or if symptoms worsen such as bladder or bowel stability, chest pain, short of breath, numbness or tingling sensation in extremities, headache, dizziness, visual changes, nausea vomiting, or abdominal pain, return back to emergency room as was possible. 5- At time time of discharge, the patient does not seem toxic or ill in appearance. No acute signs of distress noted. Patient agrees to discharge treatment plan of care. No further questions noted by the patient. 6- Blood pressure decreased prior to discharge. I will refill patient medications at [facility]. Critical care attestation.: If time is entered above; I have spent that time in minutes in the direct care of this critically ill patient, excluding procedure time. ED Disposition Clinical Impression: Hypertension Qualifiers: Hypertension type: unspecified Qualified Code(s): I10 - Essential (primary) hypertension Cervical muscle strain Qualifiers: Encounter type: initial encounter Qualified Code(s): S16.1XXA - Strain of muscle, fascia and tendon at neck level, initial encounter Disposition: - TO HOME OR SELFCARE Is pt being admited?: No Does the pt Need Aspirin: No Condition: Stable Instructions: Hypertension (ED), Muscle Strain (ED), Cyclobenzaprine (By mouth) , Ibuprofen (By mouth) Additional Instructions: Follow-up with your primary care doctor in 3-5 days or if symptoms worsen such as bladder or bowel stability, chest pain, short of breath, numbness or tingling sensation in extremities, headache, dizziness, visual changes, nausea vomiting, or abdominal pain, return back to emergency room as was possible. Take ibuprofen and Flexeril as prescribed. Do not operate heavy machinery while taking Flexeril due to sedation Prescriptions: Cyclobenzaprine [Flexeril] 10 mg PO BID PRN #14 tablet PRN Reason: Muscle Spasm Ibuprofen [Motrin] 600 mg PO Q8H PRN #30 tablet PRN Reason: Pain Lisinopril [Zestril TAB] 10 mg PO QDAY #30 tablet Lispro Insulin [Humalog] 15 units SQ TID #1 vial Referrals: PRIMARY CAREMD [Primary Care Provider] - 3-5 Days LOBO HIRSCH MD [Staff Physician] - 3-5 Days [facility] [Outside] - 3-5 Days [facility] [Outside] - 3-5 Days Forms: Work/School Release Form(ED)
[2018-03-02 17:01] VITALS: BP 177/95
== END 2018-03-02 17:40 | disposition home or self-care (01) ==
LOC: ED 14:49
DX: S16.1XXA Strain of muscle, fascia and tendon at neck level, initial encounter (principal); I10 Essential (primary) hypertension; E11.9 Type 2 diabetes mellitus without complications; J45.909 Unspecified asthma, uncomplicated; L40.9 Psoriasis, unspecified; Z88.0 Allergy status to penicillin; Z91.041 Radiographic dye allergy status; Z79.4 Long term (current) use of insulin; X58.XXXA Exposure to other specified factors, initial encounter; Y93.89 Activity, other specified; Y99.8 Other external cause status; Y92.098 Other place in other non-institutional residence as the place of occurrence of the external cause
CPT/HCPCS: 99282

== ENCOUNTER → 2018-04-15 | Outpatient (CLI) | payer MEDICAID ==
[~2018-04-15] MED LIST: XYLOCAINE TOPICAL 4% TP ONE
== END | disposition home or self-care (01) ==
LOC: WOUND 10:15
PROVIDERS: ATTEND Surgery
DX: T87.89 Other complications of amputation stump (principal); E11.621 Type 2 diabetes mellitus with foot ulcer; L97.512 Non-pressure chronic ulcer of other part of right foot with fat layer exposed; L97.411 Non-pressure chronic ulcer of right heel and midfoot limited to breakdown of skin; J45.909 Unspecified asthma, uncomplicated; I10 Essential (primary) hypertension; F32.9 Major depressive disorder, single episode, unspecified; Z99.2 Dependence on renal dialysis; Z98.49 Cataract extraction status, unspecified eye; Y83.5 Amputation of limb(s) as the cause of abnormal reaction of the patient, or of later complication, without mention of misadventure at the time of the procedure

== ENCOUNTER 2018-05-19 12:34 | Inpatient (IN) | payer MEDICAID ==
[2018-05-19 13:49] LABS: Basophils # (Auto) 0.1 K/mm3 (0.0-0.1); Basophils % (Auto) 1.2 % (0.0-1.8); Eosinophils # (Auto) 0.1 K/mm3 (0.0-0.4); Eosinophils % (Auto) 1.7 % (0.0-4.3); Hematocrit 22.7 % (30.3-42.9); Hemoglobin 7.6 gm/dl (10.1-14.3); Lymphocytes # (Auto) 1.4 K/mm3 (1.2-5.4); Mean Corpuscular HGB Conc 33 % (30-34); Mean Corpuscular Hemoglobin 28 pg (28-32); Mean Corpuscular Volume 85 fl (79-97); Monocytes # (Auto) 0.6 K/mm3 (0.0-0.8); Monocytes % (Auto) 8.3 % (0.0-7.3); Platelet Count 238 K/mm3 (140-440); Red Blood Count 2.66 M/mm3 (3.65-5.03); Red Cell Distribution Width 16.7 % (13.2-15.2)
[2018-05-19 14:00] LABS: INR 1.11 (0.87-1.13)
[2018-05-19 14:01] LABS: Partial Thromboplastin Time 34.3 Sec. (24.2-36.6)
[2018-05-19 14:09] LABS: Calcium 8.1 mg/dL (8.4-10.2)
[2018-05-19 14:11] LABS: Alanine Aminotransferase 22 units/L (7-56); Albumin 3.1 g/dL (3.9-5)
[2018-05-19] MEDS ORDERED: NITRO-BID 2% TP ONE (14:16)
[2018-05-19 14:17] LABS: Bilirubin,Direct < 0.2 mg/dL (0-0.2)
--- NOTE | 2018-05-19 14:22 | Emergency Department Report ---
ED Chest Pain HPI - General Chief Complaint: Chest Pain Stated Complaint: CHEST PAIN Time Seen by Provider: 05/19/18 13:13 Source: patient, EMS Mode of arrival: Stretcher Limitations: Other - History of Present Illness Initial Comments: This is a 47-year-old female who was recently noncompliant with her dialysis. Per her discharge summary of 05/07/2018: 47-year-old woman with a history of hypertension, diabetes, end-stage renal disease on dialysis was sent to the emergency room for abnormal labs. She was found to have a potassium of 7. She received dialysis after which potassium levels improved. She reported to dialysis today and complained of chest pain and shortness of breath. She admitted that she had not been to dialysis for one week. She states that she felt this pain for the last less than one day which radiated under her left breast and toward her back. When she told this to the dialysis clinic staff she was sent to the emergency department for evaluation. Patient denies significant cough. She states that she felt as if she had a fever during the week. She also stated that she had diarrhea during the week but no signs of GI bleeding. -: Gradual Onset: during rest Pain Location: left chest Pain Radiation: back (under breast and around to the subscapular area) Severity: moderate Quality: sharp Consistency: intermittent Improves With: nothing Worsens With: other (nonpleuritic) - Related Data Home Medications Medication Instructions Recorded Confirmed Last Taken ALBUTEROL Inhaler (OR & NICU) 2 puff IH Q6H PRN 05/19/18 05/19/18 Unknown [ProAir HFA Inhaler] ALBUTEROL NEB's [Proventil 0.083% 2.5 mg IH QID PRN 05/19/18 05/19/18 Unknown NEBS] Cetirizine HCl [Allergy Relief] 10 mg PO DAILY 05/19/18 05/19/18 Unknown Insulin Detemir [Levemir Flextouch] 25 units SUB-Q QHS 05/19/18 05/19/18 Unknown Lisinopril [Zestril] 10 mg PO QDAY 05/19/18 05/19/18 05/19/18 Lispro Insulin [Humalog] 2 - 5 units SUB-Q TIDWM 05/19/18 05/19/18 Unknown amLODIPine [Norvasc] 10 mg PO DAILY 05/19/18 05/19/18 05/19/18 cloNIDine-TTS PATCH [Catapres-Tts 0.3 mg TD QWEEK 05/19/18 05/19/18 05/19/18 Patch] Previous Rx's Medication Instructions Recorded Last Taken Type AtorvaSTATin [Lipitor] 20 mg PO DAILY #30 tablet 07/14/17 Unknown Rx Aspirin EC [Aspirin Enteric Coated 81 mg PO QDAY #30 tablet 04/03/18 Unknown Rx TAB] Allergies Allergy/AdvReac Type Severity Reaction Status Date / Time Penicillins Allergy Unknown Verified 05/19/18 13:02 IV contrast Allergy Rash Uncoded 01/15/17 17:55 Heart Score - HEART Score History: Slightly suspicious EKG: Non-specific Age: 45-65 Risk factors: > 3 risk factors or hx of atherosclerotic disease Troponin: 1-3x normal limit HEART Score: 5 - Critical Actions Critical Actions: 4-6 pts:12-16.6% risk of adverse cardiac event. Should be admitted ED Review of Systems ROS: Stated complaint: CHEST PAIN Other details as noted in HPI Constitutional: fever. denies: chills Eyes: denies: eye pain, eye discharge, vision change ENT: denies: ear pain, throat pain Respiratory: shortness of breath. denies: cough, wheezing Cardiovascular: chest pain. denies: palpitations Endocrine: no symptoms reported Gastrointestinal: nausea. denies: abdominal pain, vomiting, diarrhea Genitourinary: denies: urgency, dysuria, discharge Musculoskeletal: denies: back pain, joint swelling, arthralgia Skin: denies: rash, lesions Neurological: denies: headache, weakness, paresthesias Psychiatric: denies: anxiety, depression Hematological/Lymphatic: denies: easy bleeding, easy bruising ED Past Medical Hx - Past Medical History Hx Hypertension: Yes Hx Heart Attack/AMI: No Hx Congestive Heart Failure: No Hx Diabetes: Yes Hx Deep Vein Thrombosis: No Hx Pulmonary Embolism: No Hx Liver Disease: No Hx Renal Disease: Yes (abnormal labs) Hx Kidney Stones: No Hx Asthma: Yes Hx COPD: No Hx Tuberculosis: No Hx HIV: No Additional medical history: psorasis. NEUROPATHY. FIBROIDS - Surgical History Hx Coronary Stent: No Hx Pacemaker: No Hx Internal Defibrillator: No Additional Surgical History: X 1 , Hx. left wrist surgery 2 toes amputated r) foot. partial right foot amputation - Social History Smoking Status: Never Smoker Substance Use Type: None - Medications Home Medications: Home Medications Medication Instructions Recorded Confirmed Last Taken Type AtorvaSTATin [Lipitor] 20 mg PO DAILY #30 tablet 07/14/17 05/19/18 Unknown Rx Aspirin EC [Aspirin Enteric Coated 81 mg PO QDAY #30 tablet 04/03/18 05/19/18 Unknown Rx TAB] ALBUTEROL Inhaler (OR & NICU) 2 puff IH Q6H PRN 05/19/18 05/19/18 Unknown History [ProAir HFA Inhaler] ALBUTEROL NEB's [Proventil 0.083% 2.5 mg IH QID PRN 05/19/18 05/19/18 Unknown History NEBS] Cetirizine HCl [Allergy Relief] 10 mg PO DAILY 05/19/18 05/19/18 Unknown History Insulin Detemir [Levemir Flextouch] 25 units SUB-Q QHS 05/19/18 05/19/18 Unknown History Lisinopril [Zestril] 10 mg PO QDAY 05/19/18 05/19/18 05/19/18 History Lispro Insulin [Humalog] 2 - 5 units SUB-Q TIDWM 05/19/18 05/19/18 Unknown History amLODIPine [Norvasc] 10 mg PO DAILY 05/19/18 05/19/18 05/19/18 History cloNIDine-TTS PATCH [Catapres-Tts 0.3 mg TD QWEEK 05/19/18 05/19/18 05/19/18 History Patch] ED Physical Exam - General Limitations: Physical Limitation General appearance: alert, in no apparent distress, obese - Head Head exam: Present: atraumatic, normocephalic - Eye Eye exam: Present: normal appearance, PERRL, EOMI. Absent: scleral icterus - ENT ENT exam: Present: mucous membranes moist - Neck Neck exam: Present: normal inspection. Absent: tenderness, meningismus - Respiratory Respiratory exam: Absent: respiratory distress, accessory muscle use, decreased breath sounds - Cardiovascular Cardiovascular Exam: Present: regular rate, normal rhythm. Absent: systolic murmur, diastolic murmur, rubs, gallop - GI/Abdominal GI/Abdominal exam: Present: soft, normal bowel sounds. Absent: distended, tenderness, guarding, rebound, rigid - Extremities Exam Extremities exam: Present: pedal edema, other (bilateral 1+ 2+ pretibial edema) . Absent: calf tenderness - Back Exam Back exam: Present: normal inspection. Absent: CVA tenderness (R), CVA tenderness (L) - Neurological Exam Neurological exam: Present: alert, oriented X3, CN II-XII intact (as tested) - Psychiatric Psychiatric exam: Present: normal affect, normal mood - Skin Skin exam: Present: warm, dry, intact, normal color. Absent: rash ED Course Vital Signs 05/19/18 05/19/18 05/19/18 13:00 13:14 13:15 Temperature 97.6 F Pulse Rate 97 H 94 H 94 H Respiratory 22 19 26 H Rate Blood Pressure 165/67 O2 Sat by Pulse 97 99 99 Oximetry 05/19/18 05/19/18 05/19/18 13:19 13:31 13:45 Temperature Pulse Rate 96 H 98 H Respiratory 24 12 12 Rate Blood Pressure O2 Sat by Pulse 97 99 99 Oximetry 05/19/18 05/19/18 14:01 14:15 Temperature Pulse Rate 94 H Respiratory 9 L 19 Rate Blood Pressure 166/89 O2 Sat by Pulse 100 99 Oximetry - Reevaluation(s) Reevaluation #1: Nephrology was notified of the need to dialyze patient even before the laboratory studies were resulted. The patient was found to be hyperkalemic with a significant metabolic acidosis. She did have some pulmonary edema on x- ray. We did call for emergency dialysis. Nephrology requested that we did not provide any medical stabilization prior to dialysis. The patient is in stable condition at this time. 05/19/18 15:08 MOOSE score - Moose Score Age > 65: (0) No Aspirin use within the Past 7 Days: (0) No 3 or more CAD Risk Factors: (1) Yes 2 or more Angina events in past 24 hrs: (1) Yes Known CAD with more than 50% Stenosis: (0) No Elevated Cardiac Markers: (0) No ST Deviation Greater than 0.5mm: (0) No MOOSE Score: 2 ED Medical Decision Making - Lab Data Result diagrams: 05/19/18 13:20 05/19/18 13:20 Laboratory Results - last 24 hr 05/19/18 05/19/18 05/19/18 13:20 13:20 13:20 WBC 7.4 RBC 2.66 L Hgb 7.6 L Hct 22.7 L MCV 85 MCH 28 MCHC 33 RDW 16.7 H Plt Count 238 Lymph % (Auto) 19.0 Adams % (Auto) 8.3 H Eos % (Auto) 1.7 Baso % (Auto) 1.2 Lymph # 1.4 Adams # 0.6 Eos # 0.1 Baso # 0.1 Seg Neutrophils % 69.8 Seg Neutrophils # 5.1 PT 14.9 INR 1.11 APTT 34.3 Sodium 139 Potassium 6.6 H* Chloride 103.6 Carbon Dioxide 15 L Anion Gap 27 BUN 67 H Creatinine 9.1 H Estimated GFR 5 BUN/Creatinine Ratio 7 Glucose 101 H Lactic Acid Calcium 8.1 L Phosphorus Total Bilirubin Direct Bilirubin Indirect Bilirubin AST ALT Alkaline Phosphatase Troponin T 0.332 H* NT-Pro-B Natriuret Pep Total Protein Albumin Albumin/Globulin Ratio 05/19/18 05/19/18 13:33 13:33 WBC RBC Hgb Hct MCV MCH MCHC RDW Plt Count Lymph % (Auto) Adams % (Auto) Eos % (Auto) Baso % (Auto) Lymph # Adams # Eos # Baso # Seg Neutrophils % Seg Neutrophils # PT INR APTT Sodium Potassium Chloride Carbon Dioxide Anion Gap BUN Creatinine Estimated GFR BUN/Creatinine Ratio Glucose Lactic Acid 1.20 Calcium Phosphorus 9.10 H Total Bilirubin 0.20 Direct Bilirubin < 0.2 Indirect Bilirubin 0.0 AST 22 ALT 22 Alkaline Phosphatase 156 H Troponin T NT-Pro-B Natriuret Pep 86786 H Total Protein 7.3 Albumin 3.1 L Albumin/Globulin Ratio 0.7 Laboratory Results - last 24 hr 05/19/18 05/19/18 05/19/18 13:20 13:20 13:20 WBC 7.4 RBC 2.66 L Hgb 7.6 L Hct 22.7 L MCV 85 MCH 28 MCHC 33 RDW 16.7 H Plt Count 238 Lymph % (Auto) 19.0 Adams % (Auto) 8.3 H Eos % (Auto) 1.7 Baso % (Auto) 1.2 Lymph # 1.4 Adams # 0.6 Eos # 0.1 Baso # 0.1 Seg Neutrophils % 69.8 Seg Neutrophils # 5.1 PT 14.9 INR 1.11 APTT 34.3 Sodium 139 Potassium 6.6 H* Chloride 103.6 Carbon Dioxide 15 L Anion Gap 27 BUN 67 H Creatinine 9.1 H Estimated GFR 5 BUN/Creatinine Ratio 7 Glucose 101 H Lactic Acid Calcium 8.1 L Phosphorus Total Bilirubin Direct Bilirubin Indirect Bilirubin AST ALT Alkaline Phosphatase Troponin T 0.332 H* NT-Pro-B Natriuret Pep Total Protein Albumin Albumin/Globulin Ratio 05/19/18 05/19/18 13:33 13:33 WBC RBC Hgb Hct MCV MCH MCHC RDW Plt Count Lymph % (Auto) Adams % (Auto) Eos % (Auto) Baso % (Auto) Lymph # Adams # Eos # Baso # Seg Neutrophils % Seg Neutrophils # PT INR APTT Sodium Potassium Chloride Carbon Dioxide Anion Gap BUN Creatinine Estimated GFR BUN/Creatinine Ratio Glucose Lactic Acid 1.20 Calcium Phosphorus 9.10 H Total Bilirubin 0.20 Direct Bilirubin < 0.2 Indirect Bilirubin 0.0 AST 22 ALT 22 Alkaline Phosphatase 156 H Troponin T NT-Pro-B Natriuret Pep 59998 H Total Protein 7.3 Albumin 3.1 L Albumin/Globulin Ratio 0.7 - EKG Data -: EKG Interpreted by Me EKG shows normal: sinus rhythm, axis, intervals, QRS complexes, ST-T waves Rate: normal - EKG Data Interpretation: nonspecific ST-T wave faisal - Radiology Data interpreted by me: Chest x-ray is consistent with early pulmonary edema and cardiomegaly Critical Care Time: Yes Critical care time in (mins) excluding proc time.: 50 Critical care attestation.: If time is entered above; I have spent that time in minutes in the direct care of this critically ill patient, excluding procedure time. ED Disposition Clinical Impression: End-stage renal disease needing dialysis, Elevated troponin, Hyperkalemia, Other specified anemias, Metabolic acidosis Chest pain Qualifiers: Chest pain type: unspecified Qualified Code(s): R07.9 - Chest pain, unspecified Pulmonary edema Qualifiers: Chronicity: acute Qualified Code(s): J81.0 - Acute pulmonary edema Volume overload Qualifiers: Hypervolemia type: unspecified Qualified Code(s): E87.70 - Fluid overload, unspecified Cardiomyopathy Qualifiers: Cardiomyopathy type: unspecified Qualified Code(s): I42.9 - Cardiomyopathy, unspecified Disposition: OP ADMIT IP TO THIS HOSP Is pt being admited?: Yes Does the pt Need Aspirin: Yes Condition: Stable Instructions: Chest Pain (ED), Pulmonary Edema (ED) Referrals: PRIMARY CARE,MD [Primary Care Provider] - 3-5 Days
--- NOTE | 2018-05-19 14:24 | History and Physical Report ---
History of Present Illness Chief complaint: My chest hurt History of present illness: 47 YO Female with ESRD on HD, Noncompliance, HTN, DM presents to ED for evaluation. Pt states that she has experienced shortness of breath over the passt 3 days, and pain in her chest over the past 1 day. Pt states that pain is 4/10, substernal, radiates to her back, sharp, intermittent, not worsened with exertion, or relieved with rest. Pt reported symptoms to dialysis clinic staff, and was sent to [facility] for further care and evaluation. Pt has been noncompliant with dialysis for the past 1 week. Pt denies fever, chills, palpitations, NVD, syncope, BRBPR, Trauma, productive cough, skin rash, unilateral leg swelling, calf pain, or recent ill contacts. Pt seen and evaluated in ED and found to have ESRD, as well as symptoms consistent with ACS and Diastolic CHF. Pt admitted to telemetry. Nephrology consulted in ED for urgent dialysis. Cardiology consulted in ED. Past History Past Medical History: diabetes, ESRD, hypertension Past Surgical History: , Other (wrist, toes, foot surgery) Social history: single. denies: smoking, alcohol abuse, prescription drug abuse Family history: diabetes, hypertension Medications and Allergies Allergies Allergy/AdvReac Type Severity Reaction Status Date / Time Penicillins Allergy Unknown Verified 05/19/18 13:02 IV contrast Allergy Rash Uncoded 01/15/17 17:55 Home Medications Medication Instructions Recorded Confirmed Last Taken Type AtorvaSTATin [Lipitor] 20 mg PO DAILY #30 tablet 07/14/17 05/19/18 Unknown Rx Aspirin EC [Aspirin Enteric Coated 81 mg PO QDAY #30 tablet 04/03/18 05/19/18 Unknown Rx TAB] ALBUTEROL Inhaler (OR & NICU) 2 puff IH Q6H PRN 05/19/18 05/19/18 Unknown History [ProAir HFA Inhaler] ALBUTEROL NEB's [Proventil 0.083% 2.5 mg IH QID PRN 05/19/18 05/19/18 Unknown History NEBS] Cetirizine HCl [Allergy Relief] 10 mg PO DAILY 05/19/18 05/19/18 Unknown History Insulin Detemir [Levemir Flextouch] 25 units SUB-Q QHS 05/19/18 05/19/18 Unknown History Lisinopril [Zestril] 10 mg PO QDAY 05/19/18 05/19/18 05/19/18 History Lispro Insulin [Humalog] 2 - 5 units SUB-Q TIDWM 05/19/18 05/19/18 Unknown History amLODIPine [Norvasc] 10 mg PO DAILY 05/19/18 05/19/18 05/19/18 History cloNIDine-TTS PATCH [Catapres-Tts 0.3 mg TD QWEEK 05/19/18 05/19/18 05/19/18 History Patch] Review of Systems Constitutional: no weight loss, no weight gain, no fever, no chills Ears, nose, mouth and throat: no ear pain, no ear discharge, no tinnitis, no decreased hearing, no nasal congestion, no nasal discharge Breasts: no change in shape, no swelling, no mass Cardiovascular: chest pain, no orthopnea, no palpitations, no rapid/irregular heart beat, no dyspnea on exertion, no paroxysmal nocturnal dyspnea, no claudication, no phlebitis Respiratory: no cough, no cough with sputum, no excessive sputum, no hemoptysis Gastrointestinal: no abdominal pain, no nausea, no vomiting, no diarrhea, no constipation Genitourinary Female: no pelvic pain, no flank pain, no menorrhagia, no dysuria , no urinary frequency, no urgency Rectal: no pain, no incontinence, no bleeding Musculoskeletal: no neck stiffness, no neck pain, no shooting arm pain, no arm numbness/tingling, no low back pain Integumentary: no rash, no pruritis, no redness, no sores, no wounds, no jaundice Neurological: no transient paralysis, no paralysis, no weakness, no parathesias , no numbness, no seizures, no tremors Psychiatric: no anxiety, no memory loss, no change in sleep habits, no sleep disturbances, no change in appetite, no suicidal ideation, no hallucinations, no paranoia, no depression Endocrine: no cold intolerance, no polyphagia, no excessive thirst Hematologic/Lymphatic: no easy bruising, no easy bleeding, no lymphadenopathy Allergic/Immunologic: no urticaria, no allergic rhinitis, no wheezing, no persistent infections, no anaphylaxis, no angioedema Exam - Constitutional Vitals: Temp Pulse Resp BP Pulse Ox 97.6 F 97 H 24 165/67 97 05/19/18 13:00 09/18/18 13:00 05/19/18 13:19 05/19/18 13:00 05/19/18 13:19 General appearance: Present: mild distress - EENT Eyes: Present: PERRL ENT: hearing intact, clear oral mucosa - Neck Neck: Present: supple, normal ROM - Respiratory Respiratory effort: normal Respiratory: bilateral: CTA - Cardiovascular Heart Sounds: Present: S1 & S2. Absent: rub, click - Extremities Extremities: pulses symmetrical, No edema Peripheral Pulses: within normal limits - Abdominal General gastrointestinal: Present: soft, non-tender, non-distended, normal bowel sounds Female genitourinary: Present: normal - Integumentary Integumentary: Present: clear, warm, dry - Musculoskeletal Musculoskeletal: gait normal, strength equal bilaterally - Psychiatric Psychiatric: appropriate mood/affect, intact judgment & insight - Neurologic Neurologic: CNII-XII intact, moves all extremities Results - Labs CBC & Chem 7: 05/19/18 13:20 05/20/18 05:30 Labs: Abnormal lab results 05/19/18 05/19/18 05/19/18 Range/Units 13:20 13:20 13:33 RBC 2.66 L (3.65-5.03) M/mm3 Hgb 7.6 L (10.1-14.3) gm/dl Hct 22.7 L (30.3-42.9) % RDW 16.7 H (13.2-15.2) % [place] % (Auto) 8.3 H (0.0-7.3) % Potassium 6.6 H* (3.6-5.0) mmol/L Carbon Dioxide 15 L (22-30) mmol/L BUN 67 H (7-17) mg/dL Creatinine 9.1 H (0.7-1.2) mg/dL Glucose 101 H (65-100) mg/dL Calcium 8.1 L (8.4-10.2) mg/dL Phosphorus 9.10 H (2.5-4.5) mg/dL Alkaline Phosphatase 156 H (35-129) units/L Troponin T 0.332 H* (0.00-0.029) ng/mL NT-Pro-B Natriuret Pep 20525 H (0-450) pg/mL Albumin 3.1 L (3.9-5) g/dL Assessment and Plan - Patient Problems (1) Diastolic CHF Current Visit: Yes Status: Acute Qualifiers: Heart failure chronicity: acute on chronic Qualified Code(s): I50.33 - Acute on chronic diastolic (congestive) heart failure Plan to address problem: Admit to telemetry, cardiology consulted in ED, Afterload reduction, chest x ray , BNP, Strict I/O, monitor uop q shift, supplemental oxygen, daily weight (2) ACS (acute coronary syndrome) Current Visit: Yes Status: Acute Plan to address problem: Admit to telemetry, serial cardiac enzymes, ekg, cardiology consulted in ED, (3) Hyperkalemia Current Visit: Yes Status: Acute Plan to address problem: BMP, urgent dialysis, repeat bmp, (4) End-stage renal disease needing dialysis Current Visit: Yes Status: Acute Plan to address problem: Nephrology consulted in ED, Pt underwent urgent dialysis, bmp, (5) Metabolic acidosis Current Visit: Yes Status: Acute Plan to address problem: IVF resuscitation therapy, repeat bmp, secondary to ESRD (6) DVT prophylaxis Current Visit: Yes Status: Acute Plan to address problem: SCD to ble while in bed.
[2018-05-19] MEDS ORDERED: NACL 0.9% 500 ML 500 ML IV ONE ×2 (14:25→22:30)
[2018-05-19] MEDS ORDERED: SODIUM CHLORIDE FLUSH SYRINGE 10 ML IV PRN (14:29)
[2018-05-19] MEDS ORDERED: ZOFRAN IV PRN (14:29)
[2018-05-19] MEDS ORDERED: TYLENOL PO PRN (14:29)
[2018-05-19] MEDS ORDERED: PROVENTIL IH PRN (14:33)
[2018-05-19] MEDS ORDERED: D50W (25GM) Syringe IV PRN (14:35)
[2018-05-19 15:01] LABS: Chol/HDL Ratio 3.74 %
--- NOTE | 2018-05-19 15:21 | XRay Report ---
AP CHEST: HISTORY: Hypertension Mild cardiomegaly is stable. Mild improvement in pulmonary venous congestion is demonstrated since 05/06/18. The lungs are generally clear. No evidence for pneumonia, pleural effusion or thorax. Right IJ venous catheter is unchanged. IMPRESSION: Mild cardiomegaly and pulmonary venous congestion. Slightly improved since 05/06/18.
--- NOTE | 2018-05-19 15:43 | Consultation ---
History of Present Illness - History of Present Illness Thank you for the consultation ! Patient was evaluated today My assessment and plan are as follows; End-stage renal disease: Patient is a need for immediate renal replacement therapy, she has missed her dialysis treatment for several days Adequately counseled and educated about noncompliance fever in a patient who is on dialysis with central venous catheter need to rule out bloodstream infection Needs vancomycin 1 dose blood culture 2 ordered on dialysis Hyperkalemia: Potassium noted to be around 6.6. Moderately severe metabolic acidosis Severe anemia. Hemoglobin currently 7.6, partly also resulting from uremia that needs to be cleared up Volume overload: Resulting from missing dialysis treatment Noncompliant patient, prognosis is guarded to poor Patient has been adequately counseled and educated regarding multiple renal related issues Secondary hyperparathyroidism: Check phosphorus and PTH level We'll continue to follow and make recommendation from renal standpoint She will likely require another dialysis treatment tomorrow Patient was adequately counseled and educated regarding multiple renal related issues. Renal prognosis remains guarded at this time All renal related questions were answered and simple Romansh pertinent lab studies as well as imaging results were also discussed with patient We will continue to follow and make recommendations from renal standpoint. Thank you for the consultation Author: Faizan Andrews M.D. [facility], [address] [address] Tel; [phone] Source of information: From patient , as well as old chart History of present illness Patient is a 47-year-old female who is currently being dialyzed at [facility]. Patient states that she has missed 2 dialysis treatments last week. Upon further questioning patient states that she has had fever off nearly 102 and has had loose stools. She still continues to dialyze with a central venous catheter in the right upper part of her chest she has no complaints of any cough cold congestion she was admitted here with hyperkalemia and volume overload and was also complaining of chest pain upon arrival. By the time I came to see the patient she was on dialysis already and was chest pain-free. She has no complaints of any drainage discharge or redness around the catheter site. Upon arrival her hemoglobin was 7.6 potassium 6.6 BUN 67 and creatinine 9.1 patient does continue to make some urine. Past medical history: end-stage renal disease Noncompliance Hypertension Current allergies: Reviewed from the current chart Social history: Reviewed from the current chart Family history: Reviewed from the current chart Review of system: Positive for Chest pain diarrhea fever No cough cold congestion All other review of systems negative Physical examination Vitals: Reviewed General: No acute distress HEENT: Oral mucosa moist no pallor or icterus Neck: Supple without any JVD thyromegaly or nodular mass Chest: Clear to auscultation, central venous catheter site okay Heart: Regular rate and rhythm S1-S2 heard no S3-S4 Abdomen: Soft nontender, bowel sounds present no renal bruit no suprapubic masses no CVA tenderness noted Extremity: Minimal edema dry skin no peripheral cyanosis Endocrine: Thyroid not enlarged Psychiatric: No agitation and aggression noted Musculoskeletal: No joint effusion noted Labs and x-rays: Reviewed from this admission Medications and Allergies Allergies Allergy/AdvReac Type Severity Reaction Status Date / Time Penicillins Allergy Unknown Verified 05/19/18 13:02 IV contrast Allergy Rash Uncoded 01/15/17 17:55 Home Medications Medication Instructions Recorded Confirmed Last Taken Type AtorvaSTATin [Lipitor] 20 mg PO DAILY #30 tablet 07/14/17 05/19/18 Unknown Rx Aspirin EC [Aspirin Enteric Coated 81 mg PO QDAY #30 tablet 04/03/18 05/19/18 Unknown Rx TAB] ALBUTEROL Inhaler (OR & NICU) 2 puff IH Q6H PRN 05/19/18 05/19/18 Unknown History [ProAir HFA Inhaler] ALBUTEROL NEB's [Proventil 0.083% 2.5 mg IH QID PRN 05/19/18 05/19/18 Unknown History NEBS] Cetirizine HCl [Allergy Relief] 10 mg PO DAILY 05/19/18 05/19/18 Unknown History Insulin Detemir [Levemir Flextouch] 25 units SUB-Q QHS 05/19/18 05/19/18 Unknown History Lisinopril [Zestril] 10 mg PO QDAY 05/19/18 05/19/18 05/19/18 History Lispro Insulin [Humalog] 2 - 5 units SUB-Q TIDWM 05/19/18 05/19/18 Unknown History amLODIPine [Norvasc] 10 mg PO DAILY 05/19/18 05/19/18 05/19/18 History cloNIDine-TTS PATCH [Catapres-Tts 0.3 mg TD QWEEK 05/19/18 05/19/18 05/19/18 History Patch] Active Meds: Active Medications Acetaminophen (Tylenol) 650 mg PO Q4H PRN PRN Reason: Pain MILD(1-3)/Fever >100.5/[place] Albuterol (Proventil) 2.5 mg IH QID PRN PRN Reason: SHORTNESS OF BREATH/WHEEZING Amlodipine Besylate (Norvasc) 10 mg PO DAILY [facility] Aspirin (Halfprin Ec) 81 mg PO QDAY [facility] Atorvastatin Calcium (Lipitor) 20 mg PO DAILY [facility] Clonidine HCl (Catapres-Tts Patch) 0.3 mg TD QWEEK [facility] Dextrose (D50w (25gm) Syringe) 50 ml IV PRN PRN PRN Reason: Hypoglycemia Insulin Human Lispro (Humalog) 0 unit SUB-Q Q6HR [facility]; Protocol Lisinopril (Zestril) 10 mg PO QDAY [facility] Miscellaneous Medication (Cetirizine Hcl [Allergy Relief]) 10 mg PO DAILY [facility] Miscellaneous Medication (Insulin Detemir [Levemir Flextouch]) 25 units SUB-Q QHS [facility] Ondansetron HCl (Zofran) 4 mg IV Q8H PRN PRN Reason: Nausea And Vomiting Sodium Chloride (Sodium Chloride Flush Syringe 10 Ml) 10 ml IV BID [facility] Sodium Chloride (Sodium Chloride Flush Syringe 10 Ml) 10 ml IV PRN PRN PRN Reason: LINE FLUSH Exam - Vital Signs Vital signs: Vital Signs Temp Pulse Resp BP Pulse Ox 97.6 F 97 H 22 165/67 97 05/19/18 13:00 05/19/18 13:00 05/19/18 13:00 05/19/18 13:00 05/19/18 13:00 Results - Lab Results 05/19/18 13:20 05/19/18 13:20 Most recent lab results Calcium 8.1 mg/dL (8.4-10.2) L 05/19/18 13:20 Phosphorus 9.10 mg/dL (2.5-4.5) H 05/19/18 13:33
[2018-05-19] MEDS ORDERED: INSULIN DETEMIR 25 UNIT SUB-Q SCH (22:00)
[2018-05-19] MEDS: LANTUS SUB-Q SCH (22:35)
[2018-05-19] MEDS: SODIUM CHLORIDE FLUSH SYRINGE 10 ML IV SCH (22:36)
[2018-05-19] MEDS ORDERED: VANCOMYCIN/NS 1 GM/250 ML 1 GM/250 ML BAG IV SCH (23:45)
[2018-05-20] MEDS ORDERED: VANCOMYCIN 1,250 MG in NACL 0.9% 250ML 250 ML IV ONE
[2018-05-20] MEDS: MORPHINE IV PRN ×3 (01:23→22:44)
[2018-05-20] MEDS: HumaLOG SUB-Q SCH ×3 (03:04→18:56)
--- NOTE | 2018-05-20 09:52 | Progress Note ---
Subjective Interval history: Patient was seen today for follow-up on multiple renal related issues Events of this hospitalization noted Had hemodialysis treatment yesterday Noted to be anemic Blood culture currently negative Patient denies having any chest pain pressure or shortness of breath Vitals labs intake output medications were reviewed Social history: Reviewed Allergies: Reviewed Family history: Reviewed Physical examination HEENT: Oral mucosa moist no pallor or icterus Neck: Supple no JVD Chest: Clear to auscultation anteriorly CVS: Regular rate and rhythm S1 and S2 heard Abdomen: Soft nontender no suprapubic masses no organomegaly appreciable Extremity: Dry skin less than 1+ peripheral edema Musculoskeletal: No joint effusion noted in knees and ankle Neurological: Alert awake Dermatology: No petechial rashes Psychiatry: No evidence of any agitation and aggression noted Assessment and plan ESRD: Patient did receive hemodialysis treatment yesterday, she is noncompliant with treatment recommendation which makes her prognosis long-term guarded to poor Patient was clearly told that if she is missing treatment she should come to the ER to get checked in future, missing dialysis treatment can result in very high mortality and morbidity risk Patient said that she had fever and hence wasn't able to go for dialysis however during this entire stay she has been noted to be afebrile? Reliable history, patient has been missing dialysis? Compliance issues Currently does have a central venous catheter has had fever patient has been placed on antibiotic blood cultures have been drawn Would like to continue with vancomycin for now pharmacy consultation should be placed Goal trough should be about 10-15 for now depending on the results Hyperkalemia: Due to missing dialysis treatment currently on Zestril to monitor and follow Volume overload: Being dialyzed today as well Patient does need a follow-up lab today Severe anemia: Etiology unclear will order workup, including immunofixation due to dialysis status Patient was adequately counseled and educated regarding multiple renal related issues Pertinent lab findings were discussed with patient, patient does exhibit good understanding of renal issues We'll continue to follow and make recommendation from renal standpoint Objective - Vital Signs Vital signs: Vital Signs - 12hr 05/19/18 05/20/18 05/20/18 23:15 01:09 01:52 Temperature 98.5 F Pulse Rate 95 H 91 H Respiratory 20 Rate Blood Pressure 174/77 Blood Pressure 174/77 [Left] O2 Sat by Pulse 94 92 93 Oximetry 05/20/18 05/20/18 05/20/18 02:56 03:00 03:15 Temperature 98.9 F 98.7 F Pulse Rate 86 88 90 Respiratory 18 18 Rate Blood Pressure 151/79 146/79 Blood Pressure [Left] O2 Sat by Pulse 89 Oximetry 05/20/18 05/20/18 05/20/18 03:16 03:45 03:50 Temperature 98.7 F Pulse Rate 86 82 82 Respiratory 18 Rate Blood Pressure 153/98 153/78 Blood Pressure [Left] O2 Sat by Pulse 91 95 Oximetry 05/20/18 05/20/18 05/20/18 04:15 04:21 04:45 Temperature 98.7 F 98.7 F Pulse Rate 74 74 71 Respiratory 18 18 18 Rate Blood Pressure 132/70 132/70 134/71 Blood Pressure [Left] O2 Sat by Pulse 97 Oximetry 05/20/18 05/20/18 05/20/18 04:49 05:10 05:25 Temperature 98.7 F 97.6 F Pulse Rate 71 71 84 Respiratory 18 18 Rate Blood Pressure 134/71 168/90 Blood Pressure [Left] O2 Sat by Pulse 97 Oximetry 05/20/18 05/20/18 05/20/18 05:26 05:55 06:00 Temperature 97.6 F Pulse Rate 73 70 Respiratory 18 18 Rate Blood Pressure 141/77 Blood Pressure [Left] O2 Sat by Pulse Oximetry 05/20/18 05/20/18 05/20/18 06:04 06:22 06:23 Temperature 97.6 F Pulse Rate 72 83 84 Respiratory 20 Rate Blood Pressure 158/76 158/76 Blood Pressure [Left] O2 Sat by Pulse 96 97 Oximetry 05/20/18 05/20/18 05/20/18 06:25 06:55 07:32 Temperature 97.6 F 97.6 F 97.6 F Pulse Rate 84 84 88 Respiratory 18 18 18 Rate Blood Pressure 158/76 163/77 172/90 Blood Pressure [Left] O2 Sat by Pulse Oximetry 05/20/18 08:37 Temperature 98.5 F Pulse Rate 85 Respiratory 20 Rate Blood Pressure 146/73 Blood Pressure [Left] O2 Sat by Pulse 94 Oximetry - Lab 05/19/18 13:20 05/20/18 05:30 Most recent lab results Calcium 8.1 mg/dL (8.4-10.2) L 05/19/18 13:20 Phosphorus 9.10 mg/dL (2.5-4.5) H 05/19/18 13:33
[2018-05-20] MEDS ORDERED: NON-FORMULARY (Cetirizine Hcl [Allergy Relief] 10 MG) PO SCH (10:00)
[2018-05-20] MEDS: NORVASC PO SCH (10:06)
[2018-05-20] MEDS: CLARITIN PO SCH (10:06)
[2018-05-20] MEDS: HALFPRIN EC PO SCH (10:07)
[2018-05-20] MEDS: ZESTRIL PO SCH (10:07)
[2018-05-20] MEDS: SODIUM CHLORIDE FLUSH SYRINGE 10 ML IV SCH ×2 (10:08→22:45)
--- NOTE | 2018-05-20 10:18 | Progress Note ---
Assessment and Plan Assessment and plan: ESRD. Patient is on hemodialysis but missed due to noncompliance. Patient has been counseled by nephrology. Diastolic CHF exacerbation. Cardiology consulted. Follow-up BNP. Strict I&O' s. Monitor daily weight. Elevated troponin. Continue monitoring on telemetry. Serial cardiac enzymes, EKG and cardiology consultation pending. Hyperkalemia. s/p urgent hemodialysis. Follow-up BMP. DVT prophylaxis. Anemia. Etiology likely secondary to ESRD. Follow-up H&H and transfuse for hemoglobin less than 7. Hypertension. Continue antihypertensive medications. Hyperlipidemia. Continue Lipitor daily. Diabetes mellitus type 2. Continue Lantus 25 units daily at bedtime. Continue sliding scale insulin and Accu-Cheks. History Interval history: No new issues overnight. Patient denies chest pain or shortness of breath. Hospitalist Physical - Constitutional Vitals: Temp Pulse Resp BP Pulse Ox 98.5 F 85 20 146/73 94 05/20/18 08:37 05/20/18 08:37 05/20/18 08:37 05/20/18 08:37 05/20/18 08:37 General appearance: Present: no acute distress - EENT Eyes: Present: PERRL, EOM intact ENT: hearing intact, clear oral mucosa, dentition normal - Neck Neck: Present: supple, normal ROM - Respiratory Respiratory effort: normal Respiratory: bilateral: CTA - Cardiovascular Rhythm: regular Heart Sounds: Present: S1 & S2. Absent: gallop, rub - Extremities Extremities: no ischemia, No edema, Full ROM - Abdominal General gastrointestinal: soft, non-tender, non-distended, normal bowel sounds - Integumentary Integumentary: Present: clear, warm, dry - Neurologic Neurologic: CNII-XII intact, moves all extremities Results - Labs CBC & Chem 7: 05/19/18 13:20 05/20/18 05:30 Labs: Laboratory Last Values WBC 7.4 K/mm3 (4.5-11.0) 05/19/18 13:20 RBC 2.66 M/mm3 (3.65-5.03) L 05/19/18 13:20 Hgb 7.6 gm/dl (10.1-14.3) L 05/19/18 13:20 Hct 22.7 % (30.3-42.9) L 05/19/18 13:20 MCV 85 fl (79-97) 05/19/18 13:20 MCH 28 pg (28-32) 05/19/18 13:20 MCHC 33 % (30-34) 05/19/18 13:20 RDW 16.7 % (13.2-15.2) H 05/19/18 13:20 Plt Count 238 K/mm3 (140-440) 05/19/18 13:20 Lymph % (Auto) 19.0 % (13.4-35.0) 05/19/18 13:20 [place] % (Auto) 8.3 % (0.0-7.3) H 05/19/18 13:20 Eos % (Auto) 1.7 % (0.0-4.3) 05/19/18 13:20 Baso % (Auto) 1.2 % (0.0-1.8) 05/19/18 13:20 Lymph # 1.4 K/mm3 (1.2-5.4) 05/19/18 13:20 [place] # 0.6 K/mm3 (0.0-0.8) 05/19/18 13:20 Eos # 0.1 K/mm3 (0.0-0.4) 05/19/18 13:20 Baso # 0.1 K/mm3 (0.0-0.1) 05/19/18 13:20 Seg Neutrophils % 69.8 % (40.0-70.0) 05/19/18 13:20 Seg Neutrophils # 5.1 K/mm3 (1.8-7.7) 05/19/18 13:20 PT 14.9 Sec. (12.2-14.9) 05/19/18 13:20 INR 1.11 (0.87-1.13) 05/19/18 13:20 APTT 34.3 Sec. (24.2-36.6) 05/19/18 13:20 Sodium 139 mmol/L (137-145) 05/19/18 13:20 Potassium 6.6 mmol/L (3.6-5.0) H* 05/19/18 13:20 Chloride 103.6 mmol/L (98-107) 05/19/18 13:20 Carbon Dioxide 15 mmol/L (22-30) L 05/19/18 13:20 Anion Gap 27 mmol/L 05/19/18 13:20 BUN 67 mg/dL (7-17) H 05/19/18 13:20 Creatinine 9.1 mg/dL (0.7-1.2) H 05/19/18 13:20 Estimated GFR 5 ml/min 05/19/18 13:20 BUN/Creatinine Ratio 7 % 05/19/18 13:20 Glucose 84 mg/dL (65-100) 05/20/18 05:30 POC Glucose 79 (70-105) 05/20/18 07:00 Lactic Acid 1.20 mmol/L (0.7-2.0) 05/19/18 13:33 Calcium 8.1 mg/dL (8.4-10.2) L 05/19/18 13:20 Phosphorus 9.10 mg/dL (2.5-4.5) H 05/19/18 13:33 Total Bilirubin 0.20 mg/dL (0.1-1.2) 05/19/18 13:33 Direct Bilirubin < 0.2 mg/dL (0-0.2) 05/19/18 13:33 Indirect Bilirubin 0.0 mg/dL 05/19/18 13:33 AST 22 units/L (5-40) 05/19/18 13:33 ALT 22 units/L (7-56) 05/19/18 13:33 Alkaline Phosphatase 156 units/L (35-129) H 05/19/18 13:33 Troponin T 0.392 ng/mL (0.00-0.029) H* 05/19/18 23:35 NT-Pro-B Natriuret Pep 95295 pg/mL (0-450) H 05/19/18 13:33 Total Protein 7.3 g/dL (6.3-8.2) 05/19/18 13:33 Albumin 3.1 g/dL (3.9-5) L 05/19/18 13:33 Albumin/Globulin Ratio 0.7 % 05/19/18 13:33 Triglycerides 115 mg/dL (2-149) 05/19/18 13:20 Cholesterol 161 mg/dL (50-199) 05/19/18 13:20 LDL Cholesterol Direct 113 mg/dL (50-130) 05/19/18 13:20 HDL Cholesterol 43 mg/dL (40-59) 05/19/18 13:20 Cholesterol/HDL Ratio 3.74 % 05/19/18 13:20 Blood Type O POSITIVE 05/19/18 20:37 Antibody Screen Negative 05/19/18 20:37 Crossmatch See Detail 05/19/18 20:37
[2018-05-20 10:53] LABS: % Iron Saturation 30.11 %; Calcium 8.5 mg/dL (8.4-10.2)
--- NOTE | 2018-05-20 12:25 | Consultation ---
History of Present Illness Consult date: 05/20/18 Requesting physician: EVITA REED Consult reason: congestive heart failure History of present illness: The pt is a 47 YO female with a past medical history significant for ESRD on HD , HTN, DM, noncompliance. She is previously unknown to our practice. She presented with complaints of shortness of breath over the past 3 days and chest pain for 1 day prior to arrival. She describes her chest pain as an intermittent , midsternal sharp pain with no clear aggravating or alleviating factors. She admits that she missed approx 1 week of dialysis due to transportation issues and that in the past, she has experienced similar symptoms secondary to missing dialysis. She denies any palpitations, n/v, dipaphoresis, dizziness or syncope. She underwent emergent dialysis last night. Echo done 03/2018 was TDS, EF 50-55%, abnormal diastolic function, LA mildly dilated, small pericardial effusion. Stress MPI done 12/2016 was negative for ischemia, EF 59%. Past History Past Medical History: diabetes, ESRD, hypertension Past Surgical History: , Other (wrist, toes, foot surgery) Social history: single. denies: smoking, alcohol abuse, prescription drug abuse Family history: diabetes, hypertension Medications and Allergies Allergies Allergy/AdvReac Type Severity Reaction Status Date / Time Penicillins Allergy Unknown Verified 05/19/18 13:02 IV contrast Allergy Rash Uncoded 01/15/17 17:55 Home Medications Medication Instructions Recorded Confirmed Last Taken Type AtorvaSTATin [Lipitor] 20 mg PO DAILY #30 tablet 07/14/17 05/19/18 Unknown Rx Aspirin EC [Aspirin Enteric Coated 81 mg PO QDAY #30 tablet 04/03/18 05/19/18 Unknown Rx TAB] ALBUTEROL Inhaler (OR & NICU) 2 puff IH Q6H PRN 05/19/18 05/19/18 Unknown History [ProAir HFA Inhaler] ALBUTEROL NEB's [Proventil 0.083% 2.5 mg IH QID PRN 05/19/18 05/19/18 Unknown History NEBS] Cetirizine HCl [Allergy Relief] 10 mg PO DAILY 05/19/18 05/19/18 Unknown History Insulin Detemir [Levemir Flextouch] 25 units SUB-Q QHS 05/19/18 05/19/18 Unknown History Lisinopril [Zestril] 10 mg PO QDAY 05/19/18 05/19/18 05/19/18 History Lispro Insulin [Humalog] 2 - 5 units SUB-Q TIDWM 05/19/18 05/19/18 Unknown History amLODIPine [Norvasc] 10 mg PO DAILY 05/19/18 05/19/18 05/19/18 History cloNIDine-TTS PATCH [Catapres-Tts 0.3 mg TD QWEEK 05/19/18 05/19/18 05/19/18 History Patch] Active Meds: Active Medications Acetaminophen (Tylenol) 650 mg PO Q4H PRN PRN Reason: Pain MILD(1-3)/Fever >100.5/VENTURA Last Admin: 05/20/18 00:11 Dose: 650 mg Albuterol (Proventil) 2.5 mg IH QID PRN PRN Reason: SHORTNESS OF BREATH/WHEEZING Amlodipine Besylate (Norvasc) 10 mg PO DAILY [facility] Last Admin: 05/20/18 10:06 Dose: 10 mg Aspirin (Halfprin Ec) 81 mg PO QDAY [facility] Last Admin: 05/20/18 10:07 Dose: 81 mg Atorvastatin Calcium (Lipitor) 20 mg PO DAILY [facility] Last Admin: 05/20/18 10:06 Dose: 20 mg Clonidine HCl (Catapres-Tts Patch) 0.3 mg TD Tu [facility] Dextrose (D50w (25gm) Syringe) 50 ml IV PRN PRN PRN Reason: Hypoglycemia Last Admin: 05/20/18 03:54 Dose: 50 ml Insulin Glargine (Lantus) 25 units SUB-Q QHS [facility] Last Admin: 05/19/18 22:35 Dose: 25 units Insulin Human Lispro (Humalog) 0 unit SUB-Q Q6HR [facility]; Protocol Last Admin: 05/20/18 06:30 Dose: Not Given Lisinopril (Zestril) 10 mg PO QDAY [facility] Last Admin: 05/20/18 10:07 Dose: 10 mg Loratadine (Claritin) 10 mg PO DAILY [facility] Last Admin: 05/20/18 10:06 Dose: 10 mg Morphine Sulfate (Morphine) 2 mg IV Q4H PRN PRN Reason: Pain, Moderate (4-6) Last Admin: 05/20/18 10:28 Dose: 2 mg Ondansetron HCl (Zofran) 4 mg IV Q8H PRN PRN Reason: Nausea And Vomiting Last Admin: 05/20/18 01:23 Dose: 4 mg Sodium Chloride (Sodium Chloride Flush Syringe 10 Ml) 10 ml IV BID RADHA Last Admin: 05/20/18 10:08 Dose: 10 ml Sodium Chloride (Sodium Chloride Flush Syringe 10 Ml) 10 ml IV PRN PRN PRN Reason: LINE FLUSH Review of Systems Constitutional: no fever, no chills, no sweats Ears, nose, mouth and throat: no ear pain, no nose pain, no sinus pressure, no sinus pain Cardiovascular: chest pain, shortness of breath, dyspnea on exertion, high blood pressure, no orthopnea, no palpitations, no rapid/irregular heart beat, no edema, no syncope, no lightheadedness Respiratory: shortness of breath, dyspnea on exertion, no cough, no congestion, no wheezing, no pain on inspiration Gastrointestinal: no abdominal pain, no nausea, no vomiting, no diarrhea, no constipation, no change in bowel habits Genitourinary Female: no pelvic pain, no flank pain, no dysuria, no urinary frequency, no urgency Musculoskeletal: no neck stiffness, no neck pain, no shooting arm pain, no arm numbness/tingling, no low back pain, no shooting leg pain Integumentary: no rash, no pruritis, no redness, no sores, no wounds Neurological: no head injury, no paralysis, no weakness, no parathesias, no numbness, no tingling, no seizures, no syncope Psychiatric: no anxiety Endocrine: no cold intolerance, no heat intolerance Hematologic/Lymphatic: no easy bruising, no easy bleeding Allergic/Immunologic: no urticaria, no wheezing Physical Examination Vital Signs Temp Pulse Resp BP Pulse Ox 97.6 F 97 H 22 165/67 97 05/19/18 13:00 05/19/18 13:00 05/19/18 13:00 05/19/18 13:00 05/19/18 13:00 General appearance: no acute distress HEENT: Positive: PERRL, Normocephaly, Mucus Membranes Moist Neck: Positive: neck supple, trachea midline Cardiac: Positive: Reg Rate and Rhythm, S1/S2 Lungs: Positive: clear to auscultation Neuro: Positive: Grossly Intact Abdomen: Positive: Soft. Negative: Tender Skin: Positive: Clear. Negative: Rash, Wound Musculoskeletal: No Fluid Collection, No Pain, Normal Range of Motion Extremities: Absent: edema Results 05/19/18 13:20 05/20/18 10:10 Cardiac Enzymes 05/19/18 Range/Units 13:33 AST 22 (5-40) units/L Coagulation 05/19/18 Range/Units 13:20 PT 14.9 (12.2-14.9) Sec. INR 1.11 (0.87-1.13) APTT 34.3 (24.2-36.6) Sec. Lipids 05/19/18 Range/Units 13:20 Triglycerides 115 (2-149) mg/dL Cholesterol 161 (50-199) mg/dL HDL Cholesterol 43 (40-59) mg/dL Cholesterol/HDL Ratio 3.74 % CBC 05/19/18 Range/Units 13:20 WBC 7.4 (4.5-11.0) K/mm3 RBC 2.66 L (3.65-5.03) M/mm3 Hgb 7.6 L (10.1-14.3) gm/dl Hct 22.7 L (30.3-42.9) % Plt Count 238 (140-440) K/mm3 Lymph # 1.4 (1.2-5.4) K/mm3 [place] # 0.6 (0.0-0.8) K/mm3 Eos # 0.1 (0.0-0.4) K/mm3 Baso # 0.1 (0.0-0.1) K/mm3 Comprehensive Metabolic Panel 05/19/18 05/19/18 05/20/18 Range/Units 13:20 13:33 05:30 Sodium 139 (137-145) mmol/L Potassium 6.6 H* (3.6-5.0) mmol/L Chloride 103.6 (98-107) mmol/L Carbon Dioxide 15 L (22-30) mmol/L BUN 67 H (7-17) mg/dL Creatinine 9.1 H (0.7-1.2) mg/dL Glucose 101 H 84 (65-100) mg/dL Calcium 8.1 L (8.4-10.2) mg/dL Direct Bilirubin < 0.2 (0-0.2) mg/dL Indirect Bilirubin 0.0 mg/dL AST 22 (5-40) units/L ALT 22 (7-56) units/L Alkaline Phosphatase 156 H (35-129) units/L Total Protein 7.3 (6.3-8.2) g/dL Albumin 3.1 L (3.9-5) g/dL 05/20/18 Range/Units 10:10 Sodium 141 (137-145) mmol/L Potassium 4.9 D (3.6-5.0) mmol/L Chloride 102.9 (98-107) mmol/L Carbon Dioxide 26 D (22-30) mmol/L BUN 22 H (7-17) mg/dL Creatinine 4.4 H D (0.7-1.2) mg/dL Glucose 74 (65-100) mg/dL Calcium 8.5 (8.4-10.2) mg/dL Direct Bilirubin (0-0.2) mg/dL Indirect Bilirubin mg/dL AST (5-40) units/L ALT (7-56) units/L Alkaline Phosphatase (35-129) units/L Total Protein (6.3-8.2) g/dL Albumin (3.9-5) g/dL - Imaging and Cardiology Echo: report reviewed ( 03/2018 was TDS, EF 50-55%, abnormal diastolic function, LA mildly dilated, small pericardial effusion. ) EKG: report reviewed, image reviewed EKG interpretations - Telemetry EKG Rhythm: Sinus Rhythm - EKG Sinus rhythms and dysrhythmias: sinus rhythm Assessment and Plan Pt presented with acute heart failure, accelerated HTN, anemia, chest pain and NSTEMI type II. She is currently chest pain free. ECG with no acute ischemic changes. F/u echo. Volume optimization and electrolyte management per nephrology. The patient has been seen in conjunction with Dr. Addison who agrees with the assessment and plan of care. - Patient Problems (1) Acute diastolic heart failure Current Visit: Yes Status: Acute (2) Chest pain Current Visit: Yes Status: Acute Qualifiers: Chest pain type: unspecified Qualified Code(s): R07.9 - Chest pain, unspecified (3) NSTEMI (non-ST elevated myocardial infarction) Current Visit: Yes Status: Acute (4) Accelerated hypertension Current Visit: Yes Status: Acute (5) Diabetes Current Visit: Yes Status: Chronic (6) End-stage renal disease needing dialysis Current Visit: Yes Status: Chronic (7) Hyperkalemia Current Visit: Yes Status: Acute (8) Anemia Current Visit: Yes Status: Acute (9) Medical non-compliance Current Visit: Yes Status: Acute
[2018-05-20] MEDS: LANTUS SUB-Q SCH (22:45)
[2018-05-21] MEDS: HumaLOG SUB-Q SCH ×3 (00:08→20:49)
--- NOTE | 2018-05-21 09:12 | Progress Note ---
Subjective Interval history: Patient was seen today for follow-up on multiple renal related issues Events of this hospitalization noted Had hemodialysis treatment yesterday Noted to be anemic Blood culture currently negative Patient denies having any chest pain pressure or shortness of breath Vitals labs intake output medications were reviewed Social history: Reviewed Allergies: Reviewed Family history: Reviewed Physical examination HEENT: Oral mucosa moist no pallor or icterus Neck: Supple no JVD Chest: Clear to auscultation anteriorly CVS: Regular rate and rhythm S1 and S2 heard Abdomen: Soft nontender no suprapubic masses no organomegaly appreciable Extremity: Dry skin less than 1+ peripheral edema Musculoskeletal: No joint effusion noted in knees and ankle Neurological: Alert awake Dermatology: No petechial rashes Psychiatry: No evidence of any agitation and aggression noted Assessment and plan ESRD: Noncompliant patient will be placed on hemodialysis Friday Patient reported a fever however clinically she is doing well here with no even her diarrhea? Reliable historian\ Patient is also very poorly compliant I believe she is stable for discharge today after today's lab work She will need to see a mannequin mold maker as well as director of conservation in outpatient setting please give her an appointment Severe anemia: Etiology unclear will order workup, including immunofixation due to dialysis status Patient was adequately counseled and educated regarding multiple renal related issues She will need to see us in the office for follow-up in 1-2 week Pertinent lab findings were discussed with patient, patient does exhibit good understanding of renal issues We'll continue to follow and make recommendation from renal standpoint Objective - Vital Signs Vital signs: Vital Signs - 12hr 05/20/18 05/20/18 05/21/18 21:40 22:44 00:30 Temperature 98.5 F Pulse Rate 85 Respiratory 18 18 Rate Blood Pressure 156/83 [Left] O2 Sat by Pulse 96 95 Oximetry 05/21/18 05/21/18 05:01 08:07 Temperature 98.0 F 98.3 F Pulse Rate 82 87 Respiratory 18 18 Rate Blood Pressure 148/78 161/81 [Left] O2 Sat by Pulse 95 94 Oximetry - Lab 05/19/18 13:20 05/20/18 10:10 Most recent lab results Calcium 8.5 mg/dL (8.4-10.2) 05/20/18 10:10 Phosphorus 5.90 mg/dL (2.5-4.5) H D 05/20/18 10:10
[2018-05-21] MEDS ORDERED: NACL 0.9% 100 ML IV PRN (09:30)
[2018-05-21] MEDS: HALFPRIN EC PO SCH (11:01)
[2018-05-21] MEDS: NORVASC PO SCH (11:01)
[2018-05-21] MEDS: ZESTRIL PO SCH (11:01)
[2018-05-21] MEDS: CLARITIN PO SCH (11:02)
[2018-05-21] MEDS: SODIUM CHLORIDE FLUSH SYRINGE 10 ML IV SCH ×2 (11:03→22:27)
--- NOTE | 2018-05-21 11:15 | Progress Note ---
Assessment and Plan Pt presented with acute heart failure, accelerated HTN, anemia, chest pain and NSTEMI type II. She is currently chest pain free. ECG with no acute ischemic changes. F/u echo. Volume optimization and electrolyte management per nephrology. The patient has been seen in conjunction with Dr. Addison who agrees with the assessment and plan of care. - Patient Problems (1) Acute diastolic heart failure Current Visit: Yes Status: Acute (2) Chest pain Current Visit: Yes Status: Acute Qualifiers: Chest pain type: unspecified Qualified Code(s): R07.9 - Chest pain, unspecified (3) NSTEMI (non-ST elevated myocardial infarction) Current Visit: Yes Status: Acute (4) Accelerated hypertension Current Visit: Yes Status: Acute (5) Diabetes Current Visit: Yes Status: Chronic (6) End-stage renal disease needing dialysis Current Visit: Yes Status: Chronic (7) Hyperkalemia Current Visit: Yes Status: Acute (8) Anemia Current Visit: Yes Status: Acute (9) Medical non-compliance Current Visit: Yes Status: Acute Subjective Date of service: 05/21/18 Principal diagnosis: chest pain Interval history: pt seen in echo lab, no current complaints. no chest pain overnight. Objective Last Vital Signs Temp 98.3 F 05/21/18 08:07 Pulse 87 05/21/18 08:07 Resp 18 05/21/18 08:07 BP 161/81 05/21/18 08:07 Pulse Ox 94 05/21/18 08:07 - Physical Examination General: No Apparent Distress HEENT: Positive: PERRL, Normocephaly, Mucus Membranes Moist Neck: Positive: neck supple, trachea midline Cardiac: Positive: Reg Rate and Rhythm, S1/S2 Lungs: Positive: Decreased Breath Sounds Neuro: Positive: Grossly Intact Abdomen: Positive: Soft. Negative: Tender Skin: Positive: Clear. Negative: Rash, Wound Musculoskeletal: No Fluid Collection, No Pain, Normal Range of Motion Extremities: Absent: edema - Imaging and Cardiology EKG: report reviewed, image reviewed Echo: report reviewed ( 03/2018 was TDS, EF 50-55%, abnormal diastolic function, LA mildly dilated, small pericardial effusion. ) - EKG Sinus rhythms and dysrhythmias: sinus rhythm
--- NOTE | 2018-05-21 11:49 | Progress Note ---
Assessment and Plan Assessment and plan: ESRD. Continue hemodialysis per nephrology. Acute Diastolic CHF exacerbation. Cardiology following. Follow-up echocardiogram. NSTEMI type II. Continue to follow serial troponin. Continue monitoring on telemetry. Serial EKG and cardiology following. Hyperkalemia. Resolved s/p urgent hemodialysis. Follow-up BMP. DVT prophylaxis. Anemia. Etiology likely secondary to ESRD. Follow-up H&H and transfuse for hemoglobin less than 7. Hypertension. Continue antihypertensive medications. Hyperlipidemia. Continue Lipitor daily. Diabetes mellitus type 2. Continue Lantus 25 units daily at bedtime. Continue sliding scale insulin and Accu-Cheks. History Interval history: No new issues overnight. Patient denies chest pain or shortness of breath. Hospitalist Physical - Constitutional Vitals: Temp Pulse Resp BP Pulse Ox 98.3 F 87 18 161/81 100 05/21/18 08:07 05/21/18 08:07 05/21/18 08:07 05/21/18 08:07 05/21/18 10:00 General appearance: Present: no acute distress - EENT Eyes: Present: PERRL, EOM intact ENT: hearing intact, clear oral mucosa, dentition normal - Neck Neck: Present: supple, normal ROM - Respiratory Respiratory effort: normal Respiratory: bilateral: CTA - Cardiovascular Rhythm: regular Heart Sounds: Present: S1 & S2. Absent: gallop, rub - Extremities Extremities: no ischemia, No edema, Full ROM - Abdominal General gastrointestinal: soft, non-tender, non-distended, normal bowel sounds - Integumentary Integumentary: Present: clear, warm, dry - Neurologic Neurologic: CNII-XII intact, moves all extremities Results - Labs CBC & Chem 7: 05/19/18 13:20 05/20/18 10:10 Labs: Laboratory Last Values WBC 7.4 K/mm3 (4.5-11.0) 05/19/18 13:20 RBC 2.66 M/mm3 (3.65-5.03) L 05/19/18 13:20 Hgb 7.6 gm/dl (10.1-14.3) L 05/19/18 13:20 Hct 22.7 % (30.3-42.9) L 05/19/18 13:20 MCV 85 fl (79-97) 05/19/18 13:20 MCH 28 pg (28-32) 05/19/18 13:20 MCHC 33 % (30-34) 05/19/18 13:20 RDW 16.7 % (13.2-15.2) H 05/19/18 13:20 Plt Count 238 K/mm3 (140-440) 05/19/18 13:20 Lymph % (Auto) 19.0 % (13.4-35.0) 05/19/18 13:20 [place] % (Auto) 8.3 % (0.0-7.3) H 05/19/18 13:20 Eos % (Auto) 1.7 % (0.0-4.3) 05/19/18 13:20 Baso % (Auto) 1.2 % (0.0-1.8) 05/19/18 13:20 Lymph # 1.4 K/mm3 (1.2-5.4) 05/19/18 13:20 [place] # 0.6 K/mm3 (0.0-0.8) 05/19/18 13:20 Eos # 0.1 K/mm3 (0.0-0.4) 05/19/18 13:20 Baso # 0.1 K/mm3 (0.0-0.1) 05/19/18 13:20 Seg Neutrophils % 69.8 % (40.0-70.0) 05/19/18 13:20 Seg Neutrophils # 5.1 K/mm3 (1.8-7.7) 05/19/18 13:20 Percent Retic 1.58 % (0.78-2.58) 05/20/18 10:10 PT 14.9 Sec. (12.2-14.9) 05/19/18 13:20 INR 1.11 (0.87-1.13) 05/19/18 13:20 APTT 34.3 Sec. (24.2-36.6) 05/19/18 13:20 Sodium 141 mmol/L (137-145) 05/20/18 10:10 Potassium 4.9 mmol/L (3.6-5.0) D 05/20/18 10:10 Chloride 102.9 mmol/L (98-107) 05/20/18 10:10 Carbon Dioxide 26 mmol/L (22-30) D 05/20/18 10:10 Anion Gap 17 mmol/L 05/20/18 10:10 BUN 22 mg/dL (7-17) H 05/20/18 10:10 Creatinine 4.4 mg/dL (0.7-1.2) H D 05/20/18 10:10 Estimated GFR 11 ml/min 05/20/18 10:10 BUN/Creatinine Ratio 5 % 05/20/18 10:10 Glucose 74 mg/dL (65-100) 05/20/18 10:10 POC Glucose 89 (70-105) 05/21/18 06:29 Lactic Acid 1.20 mmol/L (0.7-2.0) 05/19/18 13:33 Calcium 8.5 mg/dL (8.4-10.2) 05/20/18 10:10 Phosphorus 5.90 mg/dL (2.5-4.5) H D 05/20/18 10:10 Iron 56 ug/dL (37-170) 05/20/18 10:10 TIBC 186 mcg/dL (250-450) L 05/20/18 10:10 % Saturation 30.11 % 05/20/18 10:10 Transferrin 163 mg/dl (192-382) L 05/20/18 10:10 Total Bilirubin 0.20 mg/dL (0.1-1.2) 05/19/18 13:33 Direct Bilirubin < 0.2 mg/dL (0-0.2) 05/19/18 13:33 Indirect Bilirubin 0.0 mg/dL 05/19/18 13:33 AST 22 units/L (5-40) 05/19/18 13:33 ALT 22 units/L (7-56) 05/19/18 13:33 Alkaline Phosphatase 156 units/L (35-129) H 05/19/18 13:33 Troponin T 0.392 ng/mL (0.00-0.029) H* 05/19/18 23:35 NT-Pro-B Natriuret Pep 60306 pg/mL (0-450) H 05/19/18 13:33 Total Protein 7.3 g/dL (6.3-8.2) 05/19/18 13:33 Albumin 3.1 g/dL (3.9-5) L 05/19/18 13:33 Albumin/Globulin Ratio 0.7 % 05/19/18 13:33 Triglycerides 115 mg/dL (2-149) 05/19/18 13:20 Cholesterol 161 mg/dL (50-199) 05/19/18 13:20 LDL Cholesterol Direct 113 mg/dL (50-130) 05/19/18 13:20 HDL Cholesterol 43 mg/dL (40-59) 05/19/18 13:20 Cholesterol/HDL Ratio 3.74 % 05/19/18 13:20 Vitamin B12 652.2 pg/mL (211-911) 05/20/18 10:10 Folate 11.55 ng/mL (7.3-26.0) 05/20/18 10:10 PTH Intact 188.0 pg/mL (15-65) H 05/20/18 10:10 Blood Type O POSITIVE 05/19/18 20:37 Antibody Screen Negative 05/19/18 20:37 Crossmatch See Detail 05/19/18 20:37
[2018-05-21] MEDS ORDERED: BENADRYL IV PRN (13:45)
[2018-05-21 14:46] LABS: Hematocrit 28.3 % (30.3-42.9); Hemoglobin 9.2 gm/dl (10.1-14.3)
[2018-05-21] MEDS ORDERED: NACL 0.9 (PRIMING MACHINE ONLY DIALYSIS) MC ONE (18:16)
[2018-05-21] MEDS: LANTUS SUB-Q SCH (22:26)
[2018-05-21] MEDS: MORPHINE IV PRN (22:31)
[2018-05-22] MEDS: HumaLOG SUB-Q SCH ×3 (03:26→21:14)
[2018-05-22] MEDS: CLARITIN PO SCH (09:36)
[2018-05-22] MEDS: HALFPRIN EC PO SCH (09:36)
[2018-05-22] MEDS: ZESTRIL PO SCH (09:37)
[2018-05-22] MEDS: NORVASC PO SCH (09:37)
[2018-05-22] MEDS: SODIUM CHLORIDE FLUSH SYRINGE 10 ML IV SCH ×2 (09:39→23:29)
--- NOTE | 2018-05-22 11:18 | Progress Note ---
Subjective Principal diagnosis: chest pain Interval history: Patient was seen today for follow-up on multiple renal related issues Events of this hospitalization noted Had hemodialysis treatment yesterday Noted to be anemic Blood culture currently negative Patient denies having any chest pain pressure or shortness of breath Vitals labs intake output medications were reviewed Social history: Reviewed Allergies: Reviewed Family history: Reviewed Physical examination HEENT: Oral mucosa moist no pallor or icterus Neck: Supple no JVD Chest: Clear to auscultation anteriorly CVS: Regular rate and rhythm S1 and S2 heard Abdomen: Soft nontender no suprapubic masses no organomegaly appreciable Extremity: Dry skin less than 1+ peripheral edema Musculoskeletal: No joint effusion noted in knees and ankle Neurological: Alert awake Dermatology: No petechial rashes Psychiatry: No evidence of any agitation and aggression noted Assessment and plan ESRD: Noncompliant patient will be placed on hemodialysis Friday Patient reported a fever however clinically she is doing well here with no even her diarrhea? Reliable historian\ Patient is also very poorly compliant noted to have non-ST elevation ND I believe she is stable for discharge today after today's lab work She will need to see a instructor decorating as well as tile erector in outpatient setting please give her an appointment Severe anemia: Etiology unclear will order workup, including immunofixation due to dialysis status Patient was adequately counseled and educated regarding multiple renal related issues She will need to see us in the office for follow-up in 1-2 week Pertinent lab findings were discussed with patient, patient does exhibit good understanding of renal issues We'll continue to follow and make recommendation from renal standpoint Objective - Vital Signs Vital signs: Vital Signs - 12hr 05/22/18 05/22/18 05/22/18 00:50 03:55 07:38 Temperature 98.0 F 98.5 F 98.5 F Pulse Rate 86 80 84 Respiratory 18 18 18 Rate Blood Pressure 150/75 145/71 Blood Pressure 159/76 [Left] O2 Sat by Pulse 95 94 94 Oximetry - Lab 05/21/18 14:17 05/20/18 10:10 Most recent lab results Calcium 8.5 mg/dL (8.4-10.2) 05/20/18 10:10 Phosphorus 5.90 mg/dL (2.5-4.5) H D 05/20/18 10:10
--- NOTE | 2018-05-22 11:18 | Progress Note ---
Assessment and Plan Assessment and plan: ESRD. Continue hemodialysis per nephrology. Acute Diastolic CHF exacerbation. Cardiology following. Follow-up echocardiogram. NSTEMI type II. Continue to follow serial troponin. Continue monitoring on telemetry. Serial EKG and cardiology following. Hyperkalemia. Resolved s/p urgent hemodialysis. Follow-up BMP. DVT prophylaxis. Anemia. Etiology likely secondary to ESRD. Follow-up H&H and transfuse for hemoglobin less than 7. Hypertension. Continue antihypertensive medications. Hyperlipidemia. Continue Lipitor daily. Diabetes mellitus type 2. Continue Lantus 25 units daily at bedtime. Continue sliding scale insulin and Accu-Cheks. History Interval history: No new issues overnight. Patient denies chest pain or shortness of breath. Hospitalist Physical - Constitutional Vitals: Temp Pulse Resp BP Pulse Ox 98.5 F 84 18 145/71 94 05/22/18 07:38 05/22/18 07:38 05/22/18 07:38 05/22/18 07:38 05/22/18 07:38 General appearance: Present: no acute distress - EENT Eyes: Present: PERRL, EOM intact ENT: hearing intact, clear oral mucosa, dentition normal - Neck Neck: Present: supple, normal ROM - Respiratory Respiratory effort: normal Respiratory: bilateral: CTA - Cardiovascular Rhythm: regular Heart Sounds: Present: S1 & S2. Absent: gallop, rub - Extremities Extremities: no ischemia, No edema, Full ROM - Abdominal General gastrointestinal: soft, non-tender, non-distended, normal bowel sounds - Integumentary Integumentary: Present: clear, warm, dry - Neurologic Neurologic: CNII-XII intact, moves all extremities Results - Labs CBC & Chem 7: 05/21/18 14:17 05/20/18 10:10 Labs: Laboratory Last Values WBC 7.4 K/mm3 (4.5-11.0) 05/19/18 13:20 RBC 2.66 M/mm3 (3.65-5.03) L 05/19/18 13:20 Hgb 9.2 gm/dl (10.1-14.3) L 05/21/18 14:17 Hct 28.3 % (30.3-42.9) L 05/21/18 14:17 MCV 85 fl (79-97) 05/19/18 13:20 MCH 28 pg (28-32) 05/19/18 13:20 MCHC 33 % (30-34) 05/19/18 13:20 RDW 16.7 % (13.2-15.2) H 05/19/18 13:20 Plt Count 238 K/mm3 (140-440) 05/19/18 13:20 Lymph % (Auto) 19.0 % (13.4-35.0) 05/19/18 13:20 [place] % (Auto) 8.3 % (0.0-7.3) H 05/19/18 13:20 Eos % (Auto) 1.7 % (0.0-4.3) 05/19/18 13:20 Baso % (Auto) 1.2 % (0.0-1.8) 05/19/18 13:20 Lymph # 1.4 K/mm3 (1.2-5.4) 05/19/18 13:20 [place] # 0.6 K/mm3 (0.0-0.8) 05/19/18 13:20 Eos # 0.1 K/mm3 (0.0-0.4) 05/19/18 13:20 Baso # 0.1 K/mm3 (0.0-0.1) 05/19/18 13:20 Seg Neutrophils % 69.8 % (40.0-70.0) 05/19/18 13:20 Seg Neutrophils # 5.1 K/mm3 (1.8-7.7) 05/19/18 13:20 Percent Retic 1.58 % (0.78-2.58) 05/20/18 10:10 PT 14.9 Sec. (12.2-14.9) 05/19/18 13:20 INR 1.11 (0.87-1.13) 05/19/18 13:20 APTT 34.3 Sec. (24.2-36.6) 05/19/18 13:20 Sodium 141 mmol/L (137-145) 05/20/18 10:10 Potassium 4.9 mmol/L (3.6-5.0) D 05/20/18 10:10 Chloride 102.9 mmol/L (98-107) 05/20/18 10:10 Carbon Dioxide 26 mmol/L (22-30) D 05/20/18 10:10 Anion Gap 17 mmol/L 05/20/18 10:10 BUN 22 mg/dL (7-17) H 05/20/18 10:10 Creatinine 4.4 mg/dL (0.7-1.2) H D 05/20/18 10:10 Estimated GFR 11 ml/min 05/20/18 10:10 BUN/Creatinine Ratio 5 % 05/20/18 10:10 Glucose 74 mg/dL (65-100) 05/20/18 10:10 POC Glucose 55 (70-105) L 05/22/18 05:59 Lactic Acid 1.20 mmol/L (0.7-2.0) 05/19/18 13:33 Calcium 8.5 mg/dL (8.4-10.2) 05/20/18 10:10 Phosphorus 5.90 mg/dL (2.5-4.5) H D 05/20/18 10:10 Iron 56 ug/dL (37-170) 05/20/18 10:10 TIBC 186 mcg/dL (250-450) L 05/20/18 10:10 % Saturation 30.11 % 05/20/18 10:10 Transferrin 163 mg/dl (192-382) L 05/20/18 10:10 Total Bilirubin 0.20 mg/dL (0.1-1.2) 05/19/18 13:33 Direct Bilirubin < 0.2 mg/dL (0-0.2) 05/19/18 13:33 Indirect Bilirubin 0.0 mg/dL 05/19/18 13:33 AST 22 units/L (5-40) 05/19/18 13:33 ALT 22 units/L (7-56) 05/19/18 13:33 Alkaline Phosphatase 156 units/L (35-129) H 05/19/18 13:33 Troponin T 0.392 ng/mL (0.00-0.029) H* 05/19/18 23:35 NT-Pro-B Natriuret Pep 22041 pg/mL (0-450) H 05/19/18 13:33 Total Protein 7.3 g/dL (6.3-8.2) 05/19/18 13:33 Albumin 3.1 g/dL (3.9-5) L 05/19/18 13:33 Albumin/Globulin Ratio 0.7 % 05/19/18 13:33 Triglycerides 115 mg/dL (2-149) 05/19/18 13:20 Cholesterol 161 mg/dL (50-199) 05/19/18 13:20 LDL Cholesterol Direct 113 mg/dL (50-130) 05/19/18 13:20 HDL Cholesterol 43 mg/dL (40-59) 05/19/18 13:20 Cholesterol/HDL Ratio 3.74 % 05/19/18 13:20 Vitamin B12 652.2 pg/mL (211-911) 05/20/18 10:10 Folate 11.55 ng/mL (7.3-26.0) 05/20/18 10:10 PTH Intact 188.0 pg/mL (15-65) H 05/20/18 10:10 Blood Type O POSITIVE 05/19/18 20:37 Antibody Screen Negative 05/19/18 20:37 Crossmatch See Detail 05/19/18 20:37
--- NOTE | 2018-05-22 11:40 | Progress Note ---
Assessment and Plan Pt presented with acute heart failure, accelerated HTN, anemia, chest pain and NSTEMI type II. She is currently chest pain free. ECG with no acute ischemic changes. Echo reviewed - EF 45-50%, mild LVH, pseudonormalization, trace MR, mild TR, mod pulm HTN with RVSP 50mmHg. Cont volume optimization and electrolyte management per nephrology. Pt appears to be clinically improving. Currently stable cardiac status. Pt may discharge home from cardiology standpoint. Recommend follow up in our office with Dr. Addison within 3-5 days of hospital discharge ([phone]). The patient has been seen in conjunction with Dr. Addison who agrees with the assessment and plan of care. - Patient Problems (1) Acute diastolic heart failure Current Visit: Yes Status: Acute (2) Chest pain Current Visit: Yes Status: Resolved Qualifiers: Chest pain type: unspecified Qualified Code(s): R07.9 - Chest pain, unspecified (3) NSTEMI (non-ST elevated myocardial infarction) Current Visit: Yes Status: Acute (4) Accelerated hypertension Current Visit: Yes Status: Acute (5) Diabetes Current Visit: Yes Status: Chronic (6) End-stage renal disease needing dialysis Current Visit: Yes Status: Chronic (7) Hyperkalemia Current Visit: Yes Status: Acute (8) Anemia Current Visit: Yes Status: Acute (9) Medical non-compliance Current Visit: Yes Status: Acute (10) Pulmonary HTN Current Visit: Yes Status: Chronic Subjective Date of service: 05/22/18 Principal diagnosis: chest pain Interval history: pt resting in bed, no current complaints. no chest pain overnight. Objective Last Vital Signs Temp 98.5 F 05/22/18 07:38 Pulse 84 05/22/18 07:38 Resp 18 05/22/18 07:38 BP 145/71 05/22/18 07:38 Pulse Ox 94 05/22/18 07:38 - Physical Examination General: No Apparent Distress HEENT: Positive: PERRL, Normocephaly, Mucus Membranes Moist Neck: Positive: neck supple, trachea midline Cardiac: Positive: Reg Rate and Rhythm, S1/S2 Lungs: Positive: clear to auscultation Neuro: Positive: Grossly Intact Abdomen: Positive: Soft. Negative: Tender Skin: Positive: Clear. Negative: Rash, Wound Musculoskeletal: No Fluid Collection, No Pain, Normal Range of Motion Extremities: Absent: edema - Labs and Meds CBC 05/21/18 Range/Units 14:17 Hgb 9.2 L (10.1-14.3) gm/dl Hct 28.3 L (30.3-42.9) % - Imaging and Cardiology EKG: report reviewed, image reviewed Echo: report reviewed ( 03/2018 was TDS, EF 50-55%, abnormal diastolic function, LA mildly dilated, small pericardial effusion. ) - Telemetry EKG Rhythm: Sinus Rhythm - EKG Sinus rhythms and dysrhythmias: sinus rhythm
[2018-05-22] MEDS: LANTUS SUB-Q SCH (21:15)
[2018-05-22] MEDS ORDERED: BENADRYL PO PRN (22:11)
[2018-05-23] MEDS: HumaLOG SUB-Q SCH ×3 (01:00→14:33)
--- NOTE | 2018-05-23 07:40 | Progress Note ---
Assessment and Plan Impression: * End stage renal disease * Chest pain - resolved * Acute diastolic heart failure * Hypertension * Type II DM * Anemia secondary to ESRD * Secondary hyperparathyroidism * Medical noncompliance Plan: * Hemodialiysis today * Continue TTS schedule * UF as tolerated * Cardiology recommendations reviewed * Continue current antiHTN medications * Need for improved compliance with dialysis addressed with patient today * Stable for d/c from a renal standpoint following dialysis today Subjective Date of service: 05/23/18 Principal diagnosis: chest pain Interval history: Patient denies chest pain. Objective - Vital Signs Vital signs: Vital Signs - 12hr 05/22/18 05/22/18 05/22/18 20:14 20:42 22:00 Temperature 97.9 F Pulse Rate 90 Pulse Rate [ 90 From Monitor] Respiratory 18 18 Rate Blood Pressure 173/86 O2 Sat by Pulse 98 Oximetry 05/22/18 05/23/18 23:38 03:56 Temperature 98.9 F 98.4 F Pulse Rate 88 84 Pulse Rate [ From Monitor] Respiratory 18 18 Rate Blood Pressure 143/66 142/62 O2 Sat by Pulse 95 94 Oximetry - General Appearance General appearance: well-developed, well-nourished EENT: ATNC Respiratory: Present: Clear to Ascultation Cardiology: regular, S1S2 Gastrointestinal: normal, no tenderness, no distended Integumentary: other (right foot bandaged) Musculoskeletal: other (no edema) Psychiatric: cooperative - Lab 05/21/18 14:17 05/20/18 10:10 Most recent lab results Calcium 8.5 mg/dL (8.4-10.2) 05/20/18 10:10 Phosphorus 5.90 mg/dL (2.5-4.5) H D 05/20/18 10:10
--- NOTE | 2018-05-23 09:50 | Discharge Summary ---
Providers - Providers Date of Admission: 05/19/18 14:30 Date of discharge: 05/23/18 Attending physician: FRANKO ERVIN 05/19/18 14:22 Consult to Physician [CONS] Urgent Comment: CARLOS ALBERTO Chang [id number] Consulting Provider: CHARLIE GRACIA Physician Instructions: Reason For Exam: urgent dialysis 05/19/18 15:22 Consult to Cardiology [CONS] Routine Consulting Provider: DIONTE SIEGEL Reason For Exam: chf 05/20/18 03:09 Consult to Wound/ET Nurse [CONS] Routine Reason For Exam: wound eval Primary care physician: ESOL TEACHER Hospitalization Reason for admission: cp, chf Condition: Stable Hospital course: The pt is a 47 YO female with a past medical history significant for ESRD on HD , HTN, DM and medical noncompliance who presented with complaints of shortness of breath over the past 3 days and chest pain for 1 day prior to arrival. She described her chest pain as an intermittent, midsternal sharp pain with no clear aggravating or alleviating factors. She admitted that she missed approx 1 week of dialysis due to transportation issues and that in the past, she has experienced similar symptoms secondary to missing dialysis. She denied any palpitations, n/v, dipaphoresis, dizziness or syncope. She underwent emergent dialysis immediately after admission. The patient was seen by nephrology and cardiology in consultation. The patient was admitted with diagnosis of acute on chronic diastolic heart failure, accelerated hypertension, anemia, chest pain and NSTEMI type II. ECG with no acute ischemic changes. Echocardiogram was completed which revealed EF 45-50%, mild LVH, pseudonormalization, trace MR , mild TR, mod pulm HTN with RVSP 50mmHg. the patient had adequate volume optimization and electrolyte management per nephrology. Patient improved clinically and was chest pain-free. Therefore, cardiology felt the patient for discharge home. Cardiology recommended follow-up with Dr. Addison within 3-5 days of hospital discharge ([phone]). Disposition: TO HOME OR SELFCARE Time spent for discharge: 34 - Discharge Diagnoses (1) ACS (acute coronary syndrome) Status: Acute (2) Accelerated hypertension Status: Acute (3) Acute diastolic heart failure Status: Acute (4) Cardiomyopathy Status: Acute Qualifiers: Cardiomyopathy type: unspecified Qualified Code(s): I42.9 - Cardiomyopathy , unspecified (5) Elevated troponin Status: Acute (6) Hyperkalemia Status: Acute (7) Medical non-compliance Status: Acute (8) NSTEMI (non-ST elevated myocardial infarction) Status: Acute (9) End-stage renal disease needing dialysis Status: Chronic (10) Pulmonary HTN Status: Chronic (11) Chest pain Status: Resolved Qualifiers: Chest pain type: unspecified Qualified Code(s): R07.9 - Chest pain, unspecified Core Measure Documentation - Palliative Care Palliative Care/ Comfort Measures: Not Applicable - Core Measures Any of the following diagnoses?: acute DC - Acute DC Discharge Requirements Aspirin at discharge: Yes TERESA/ARB for LVSD if EF <40%: Yes Beta kylie at discharge: No Reason for no beta kylie on DC: Medical contraindication (interaction with clonidine) Statin for LDL = or >100 mg/dl on DC: Yes Exam - Constitutional Vitals: Temp Pulse Resp BP Pulse Ox 98.3 F 88 16 146/65 93 05/23/18 08:27 05/23/18 09:14 05/23/18 09:14 05/23/18 08:27 05/23/18 08:27 General appearance: Present: no acute distress, well-nourished - EENT Eyes: Present: PERRL ENT: hearing intact, clear oral mucosa - Neck Neck: Present: supple, normal ROM - Respiratory Respiratory effort: normal Respiratory: bilateral: CTA - Cardiovascular Heart Sounds: Present: S1 & S2. Absent: rub, click - Extremities Extremities: pulses symmetrical, No edema Peripheral Pulses: within normal limits - Abdominal General gastrointestinal: Present: soft, non-tender, non-distended, normal bowel sounds Female genitourinary: Present: normal - Integumentary Integumentary: Present: clear, warm, dry - Musculoskeletal Musculoskeletal: gait normal, strength equal bilaterally - Psychiatric Psychiatric: appropriate mood/affect, intact judgment & insight - Neurologic Neurologic: CNII-XII intact, moves all extremities Plan Activity: no restrictions Weight Bearing Status: Full Weight Bearing Diet: low fat, low cholesterol, low salt Follow up with: MARIBETH MANZO MD [Primary Care Provider] - 3-5 Days YUKI GAONA MD [Staff Physician] - 7 Days ALLYSON BURT MD [Staff Physician] - 7 Days Prescriptions: ALBUTEROL NEB's [Proventil 0.083% NEBS] 2.5 mg IH QID PRN #30 nebu PRN Reason: SHORTNESS OF BREATH/WHEEZING amLODIPine [Norvasc] 10 mg PO DAILY #30 tablet Aspirin EC [Aspirin Enteric Coated TAB] 81 mg PO QDAY #30 tablet AtorvaSTATin [Lipitor] 20 mg PO DAILY #30 tablet cloNIDine-TTS PATCH [Catapres-Tts Patch] 0.3 mg TD QWEEK #4 patch Lisinopril [Zestril] 10 mg PO QDAY #30 tablet
[2018-05-23] MEDS: NORVASC PO SCH (10:14)
[2018-05-23] MEDS: CLARITIN PO SCH (10:14)
[2018-05-23] MEDS: ZESTRIL PO SCH (10:14)
[2018-05-23] MEDS: HALFPRIN EC PO SCH (10:15)
[2018-05-23] MEDS ORDERED: NACL 0.9 (PRIMING MACHINE ONLY DIALYSIS) MC ONE (12:54)
[2018-05-23] MEDS: SODIUM CHLORIDE FLUSH SYRINGE 10 ML IV SCH (14:34)
[2018-05-23 16:41] VITALS: BP 149/71
[2018-05-26] MEDS ORDERED: CATAPRES-TTS PATCH TD SCH (10:00)
== END 2018-05-23 17:00 | disposition home or self-care (01) | DRG 280 ==
LOC: ED 12:34 → 4A 14:30
PROVIDERS: ADMIT Internal Medicine; ATTEND Hospitalist
PROC: 5A1D70Z Performance of Urinary Filtration, Intermittent, Less than 6 Hours Per Day (ICD-10-PCS; 2018-05-19)
PROC: 5A1D70Z Performance of Urinary Filtration, Intermittent, Less than 6 Hours Per Day (ICD-10-PCS; 2018-05-19)
PROC: 30233N1 Transfusion of Nonautologous Red Blood Cells into Peripheral Vein, Percutaneous Approach (ICD-10-PCS; principal; 2018-05-20)
PROC: 5A1D70Z Performance of Urinary Filtration, Intermittent, Less than 6 Hours Per Day (ICD-10-PCS; 2018-05-23)
DX: I13.2 Hypertensive heart and chronic kidney disease with heart failure and with stage 5 chronic kidney disease, or end stage renal disease (principal); I50.33 Acute on chronic diastolic (congestive) heart failure; I21.A1 Myocardial infarction type 2; N18.6 End stage renal disease; E87.2 Acidosis; E87.5 Hyperkalemia; I24.9 Acute ischemic heart disease, unspecified; I27.20 Pulmonary hypertension, unspecified; I42.9 Cardiomyopathy, unspecified; D63.1 Anemia in chronic kidney disease; N25.81 Secondary hyperparathyroidism of renal origin; E78.5 Hyperlipidemia, unspecified; L40.9 Psoriasis, unspecified; E11.22 Type 2 diabetes mellitus with diabetic chronic kidney disease; Z99.2 Dependence on renal dialysis; Z91.14 Patient's other noncompliance with medication regimen; Z83.3 Family history of diabetes mellitus; Z82.49 Family history of ischemic heart disease and other diseases of the circulatory system; Z88.0 Allergy status to penicillin; Z91.041 Radiographic dye allergy status; Z79.82 Long term (current) use of aspirin; Z79.899 Other long term (current) drug therapy; Z79.4 Long term (current) use of insulin; Z89.431 Acquired absence of right foot
CPT/HCPCS: 36415; 71045; 80048; 80061; 80074; 82140; 82607; 82747; 82947; 82962; 83550; 83880; 83970; 84100; 84484; 85014; 85018; 85025; 85045; 85610; 85730; 86334; 86850; 86900; 86901; 86920; 87040; 93005; 93010; 93306; 94760; 99291; A9270-GY; J1200; J1815; J2270; J2405; J3370; J7030; J7040; J7050; P9016

== ENCOUNTER 2018-05-31 19:20 | Emergency (ER) | payer MEDICAID ==
[2018-05-31 19:50] VITALS: BP 196/76
--- NOTE | 2018-05-31 20:40 | XRay Report ---
FINAL REPORT PROCEDURE: XR TIBIA FIBULA 2V LT TECHNIQUE: LEFT tibia and fibula radiographs, AP and lateral views. CPT 11276 HISTORY: swelling/pain lt tib/fib fall COMPARISON: No prior studies are available for comparison. FINDINGS: Fracture (s) and/or Dislocation(s): There is focal mild irregularity of the lateral malleolus.. Joint space(s): Normal . Soft tissues: Moderate degree soft tissue swelling is noted around the ankle. Bone mineralization: Normal . Foreign bodies: None . IMPRESSION: Focal mild irregularity of the lateral malleolus is noted and the a subtle fracture cannot be excluded. Additional views of the left ankle are recommended..
--- NOTE | 2018-05-31 21:08 | Emergency Department Report ---
ED Lower Extremity HPI - General Chief Complaint: Extremity Injury, Lower Stated Complaint: LEFT LEG PAIN/SWELLING Time Seen by Provider: 05/31/18 21:02 Source: patient Mode of arrival: Ambulatory Limitations: No Limitations - History of Present Illness Initial Comments: Marlin 7-year-old female comes in for left lower leg pain and swelling. Patient reports that she has slipped while getting into a [employer] last and has injured her left lower leg. Patient reports that the wound has been oozing blood but no pus and has a very large bruise. Patient has a past medical history of diabetes hypertension asthma renal disease with dialysis. Patient rates her pain a 10 out of 10. Patient reports it is difficult to walk. She's been taking Tylenol which she reports has not helped with her pain. MD Complaint: leg injury, fall -: days(s) (4) Injury: Leg: Left Type of Injury: blunt Place: street/outdoors Severity: severe Severity scale (0 -10): 10 Improves With: nothing Worsens With: weight bearing, palpation Context: fall Treatments Prior to Arrival: bandage - Related Data Home Medications Medication Instructions Recorded Confirmed Last Taken ALBUTEROL Inhaler (OR & NICU) 2 puff IH Q6H PRN 05/19/18 05/19/18 Unknown [ProAir HFA Inhaler] Cetirizine HCl [Allergy Relief] 10 mg PO DAILY 05/19/18 05/19/18 Unknown Insulin Detemir [Levemir Flextouch] 25 units SUB-Q QHS 05/19/18 05/19/18 Unknown Lispro Insulin [Humalog] 2 - 5 units SUB-Q TIDWM 05/19/18 05/19/18 Unknown Previous Rx's Medication Instructions Recorded Last Taken Type ALBUTEROL NEB's [Proventil 0.083% 2.5 mg IH QID PRN #30 nebu 05/23/18 Unknown Rx NEBS] Aspirin EC [Aspirin Enteric Coated 81 mg PO QDAY #30 tablet 05/23/18 Unknown Rx TAB] AtorvaSTATin [Lipitor] 20 mg PO DAILY #30 tablet 05/23/18 Unknown Rx Insulin Glargine [Lantus VIAL] 25 units SUB-Q QHS units 05/23/18 Unknown Rx Lisinopril [Zestril] 10 mg PO QDAY #30 tablet 05/23/18 Unknown Rx Lispro Insulin [Humalog] 0 unit SUB-Q Q6HR units 05/23/18 Unknown Rx Loratadine [Claritin] 10 mg PO DAILY tablet 05/23/18 Unknown Rx amLODIPine [Norvasc] 10 mg PO DAILY #30 tablet 05/23/18 Unknown Rx cloNIDine-TTS PATCH [Catapres-Tts 0.3 mg TD QWEEK #4 patch 05/23/18 Unknown Rx Patch] traMADol [Ultram 50 MG tab] 50 mg PO Q6HR PRN #12 tablet 05/31/18 Unknown Rx Allergies Allergy/AdvReac Type Severity Reaction Status Date / Time Penicillins Allergy Unknown Verified 05/19/18 13:02 IV contrast Allergy Rash Uncoded 01/15/17 17:55 ED Review of Systems ROS: Stated complaint: LEFT LEG PAIN/SWELLING Other details as noted in HPI ED Past Medical Hx - Past Medical History Hx Hypertension: Yes Hx Heart Attack/AMI: No Hx Congestive Heart Failure: No Hx Diabetes: Yes Hx Deep Vein Thrombosis: No Hx Pulmonary Embolism: No Hx Liver Disease: No Hx Renal Disease: Yes (HD right c/w vascath) Hx Kidney Stones: No Hx Asthma: Yes Hx COPD: No Hx Tuberculosis: No Hx HIV: No Additional medical history: psorasis. NEUROPATHY. FIBROIDS - Surgical History Hx Coronary Stent: No Hx Pacemaker: No Hx Internal Defibrillator: No Additional Surgical History: X 1 , Hx. left wrist surgery 2 toes amputated r) foot. partial right foot amputation - Social History Smoking Status: Never Smoker Substance Use Type: None - Medications Home Medications: Home Medications Medication Instructions Recorded Confirmed Last Taken Type ALBUTEROL Inhaler (OR & NICU) 2 puff IH Q6H PRN 05/19/18 05/19/18 Unknown History [ProAir HFA Inhaler] Cetirizine HCl [Allergy Relief] 10 mg PO DAILY 05/19/18 05/19/18 Unknown History Insulin Detemir [Levemir Flextouch] 25 units SUB-Q QHS 05/19/18 05/19/18 Unknown History Lispro Insulin [Humalog] 2 - 5 units SUB-Q TIDWM 05/19/18 05/19/18 Unknown History ALBUTEROL NEB's [Proventil 0.083% 2.5 mg IH QID PRN #30 nebu 05/23/18 Unknown Rx NEBS] Aspirin EC [Aspirin Enteric Coated 81 mg PO QDAY #30 tablet 05/23/18 Unknown Rx TAB] AtorvaSTATin [Lipitor] 20 mg PO DAILY #30 tablet 05/23/18 Unknown Rx Insulin Glargine [Lantus VIAL] 25 units SUB-Q QHS units 05/23/18 Unknown Rx Lisinopril [Zestril] 10 mg PO QDAY #30 tablet 05/23/18 Unknown Rx Lispro Insulin [Humalog] 0 unit SUB-Q Q6HR units 05/23/18 Unknown Rx Loratadine [Claritin] 10 mg PO DAILY tablet 05/23/18 Unknown Rx amLODIPine [Norvasc] 10 mg PO DAILY #30 tablet 05/23/18 Unknown Rx cloNIDine-TTS PATCH [Catapres-Tts 0.3 mg TD QWEEK #4 patch 05/23/18 Unknown Rx Patch] traMADol [Ultram 50 MG tab] 50 mg PO Q6HR PRN #12 tablet 05/31/18 Unknown Rx ED Physical Exam - General Limitations: No Limitations General appearance: alert, in no apparent distress - Head Head exam: Present: atraumatic, normocephalic - Eye Eye exam: Present: EOMI - Expanded Lower Extremity Exam Left Lower Leg exam: Present: full ROM, tenderness, swelling, abrasion Ankle exam: Present: full ROM. Absent: tenderness, swelling Foot/Toe exam: Present: full ROM. Absent: tenderness Neuro vascular tendon exam: Present: no vascular compromise - Neurological Exam Neurological exam: Present: alert, oriented X3 - Psychiatric Psychiatric exam: Present: normal affect, normal mood ED Course Vital Signs 05/31/18 05/31/18 19:34 19:42 Temperature 98.9 F 98.6 F Pulse Rate 102 H 101 H Respiratory 18 18 Rate Blood Pressure 196/79 196/76 O2 Sat by Pulse 97 98 Oximetry ED Lower Extremity MDM - Radiology Data Radiology results: report reviewed FINAL REPORT PROCEDURE: XR TIBIA FIBULA 2V LT TECHNIQUE: LEFT tibia and fibula radiographs, AP and lateral views. CPT 36624 HISTORY: swelling/pain lt tib/fib fall COMPARISON: No prior studies are available for comparison. FINDINGS: Fracture (s) and/or Dislocation(s): There is focal mild irregularity of the lateral malleolus.. Joint space(s): Normal . Soft tissues: Moderate degree soft tissue swelling is noted around the ankle. Bone mineralization: Normal . Foreign bodies: None . IMPRESSION: Focal mild irregularity of the lateral malleolus is noted and the a subtle fracture cannot be excluded. Additional views of the left ankle are recommended.. Transcribed By: ESTRELLA Dictated By: SPEEDY LOYA Electronically Authenticated By: SPEEDY LOYA Signed Date/Time: 05/31/182038 DD/ 38 TD/TT: 05/31/182038 FINAL REPORT PROCEDURE: XR ANKLE 3+V LT TECHNIQUE: LEFT ankle radiographs, AP, lateral, and oblique views. CPT 85566 HISTORY: swelling,pain COMPARISON: No prior studies are available for comparison. FINDINGS: Fracture (s) and/or Dislocation(s): None. Alignment: Normal. Joint space(s): Normal. Soft tissues: Moderate degree soft tissue swelling is noted around the ankle. Bone mineralization: Normal. Foreign bodies: None. Calcaneal spurring: None. IMPRESSION: No acute fracture Soft tissue swelling. Transcribed By: ESTRELLA Dictated By: SPEEDY LOYA Electronically Authenticated By: SPEEDY LOYA Signed Date/Time: 05/31/182207 DD/ 07 TD/TT: 05/31/182207 - Medical Decision Making She has been evaluated by this provider in fast track. Tylenol given for pain management X-rays ordered and performed which shows normal examination Abrasion on the left tibia saleem Cleaned with normal saline and iodine neomycin in clean dressing applied Patient discharge on tramadol 50 mg every 6 hours dispense 12 This is to follow-up with her primary care provider if symptoms persist or gets worse. Critical care attestation.: If time is entered above; I have spent that time in minutes in the direct care of this critically ill patient, excluding procedure time. ED Disposition Clinical Impression: Left leg pain Abrasion of left lower leg Qualifiers: Encounter type: initial encounter Qualified Code(s): S80.812A - Abrasion, left lower leg, initial encounter Disposition: - TO HOME OR SELFCARE Is pt being admited?: No Does the pt Need Aspirin: No Condition: Stable Additional Instructions: He is take pain medication as needed. Please use [id number] triple antibiotic tear abrasion twice a day. Keep abrasion clean and dry with a loose bandage follow-up with her primary care provider in the next 3-5 days for reevaluation. Prescriptions: traMADol [Ultram 50 MG tab] 50 mg PO Q6HR PRN #12 tablet PRN Reason: Pain Referrals: [facility] [Provider Group] - 3-5 Days Your,Provider [Other] - 3-5 Days Forms: Accompanied Note
[2018-05-31] MEDS ORDERED: TYLENOL ONE (21:58)
[2018-05-31] MEDS ORDERED: TYLENOL PO ONE (21:58)
--- NOTE | 2018-05-31 22:09 | XRay Report ---
FINAL REPORT PROCEDURE: XR ANKLE 3+V LT TECHNIQUE: LEFT ankle radiographs, AP, lateral, and oblique views. CPT 99232 HISTORY: swelling,pain COMPARISON: No prior studies are available for comparison. FINDINGS: Fracture (s) and/or Dislocation(s): None. Alignment: Normal. Joint space(s): Normal. Soft tissues: Moderate degree soft tissue swelling is noted around the ankle. Bone mineralization: Normal. Foreign bodies: None. Calcaneal spurring: None. IMPRESSION: No acute fracture Soft tissue swelling.
== END 2018-05-31 23:58 | disposition home or self-care (01) ==
LOC: ED 19:20
DX: S80.812A Abrasion, left lower leg, initial encounter (principal); I10 Essential (primary) hypertension; E11.9 Type 2 diabetes mellitus without complications; J45.909 Unspecified asthma, uncomplicated; E11.40 Type 2 diabetes mellitus with diabetic neuropathy, unspecified; Z79.4 Long term (current) use of insulin; Z88.0 Allergy status to penicillin; Z91.041 Radiographic dye allergy status; W01.0XXA Fall on same level from slipping, tripping and stumbling without subsequent striking against object, initial encounter; Y93.89 Activity, other specified; Y92.89 Other specified places as the place of occurrence of the external cause; Y99.8 Other external cause status
CPT/HCPCS: 82962; 99283

== ENCOUNTER 2018-06-10 09:52 | Outpatient (CLI) | payer MEDICAID ==
[2018-06-10] MEDS ORDERED: XYLOCAINE TOPICAL 4% TP ONE ×2 (10:17→15:49)
[2018-06-10] MEDS ORDERED: SILVER NITRATE TP ONE (10:44)
[2018-06-11] MEDS ORDERED: SILVER NITRATE TP ONE (13:34)
== END 2018-06-10 09:53 | disposition home or self-care (01) ==
LOC: WOUND 09:52
PROVIDERS: ATTEND Surgery
DX: T87.89 Other complications of amputation stump (principal); E11.621 Type 2 diabetes mellitus with foot ulcer; L97.512 Non-pressure chronic ulcer of other part of right foot with fat layer exposed; L97.411 Non-pressure chronic ulcer of right heel and midfoot limited to breakdown of skin; J45.909 Unspecified asthma, uncomplicated; E11.69 Type 2 diabetes mellitus with other specified complication; M86.671 Other chronic osteomyelitis, right ankle and foot; I10 Essential (primary) hypertension; F32.9 Major depressive disorder, single episode, unspecified; Z99.2 Dependence on renal dialysis; Z98.49 Cataract extraction status, unspecified eye; Y83.5 Amputation of limb(s) as the cause of abnormal reaction of the patient, or of later complication, without mention of misadventure at the time of the procedure

== ENCOUNTER 2018-08-26 09:27 | Inpatient (IN) | payer MEDICAID ==
[2018-08-26] MEDS ORDERED: ASPIRIN PO ONE (09:50)
[2018-08-26 10:25] LABS: Basophils % (Auto) 0.9 % (0.0-1.8); Hematocrit 28.4 % (30.3-42.9); Hemoglobin 9.1 gm/dl (10.1-14.3); Lymphocytes # (Auto) 0.4 K/mm3 (1.2-5.4); Mean Corpuscular HGB Conc 32 % (30-34); Mean Corpuscular Hemoglobin 28 pg (28-32); Mean Corpuscular Volume 86 fl (79-97); Monocytes # (Auto) 0.5 K/mm3 (0.0-0.8); Monocytes % (Auto) 11.7 % (0.0-7.3); Platelet Count 158 K/mm3 (140-440); Red Blood Count 3.32 M/mm3 (3.65-5.03)
[2018-08-26 10:27] LABS: Red Cell Distribution Width 20.8 % (13.2-15.2)
--- NOTE | 2018-08-26 10:28 | Emergency Department Report ---
ED Chest Pain HPI - General Chief Complaint: Chest Pain Stated Complaint: CHEST PAIN/RAYMUNDO Time Seen by Provider: 08/26/18 10:19 Source: patient, EMS Mode of arrival: Stretcher Limitations: Other - History of Present Illness Initial Comments: Patient is a 48-year-old female presents emergency room with 10 out of 10 chest pain that started 6 hours ago. Patient complains of chest pain and shortness of breath. Patient states chest pain is better with rest and worse with exertion. Patient states that the pain is left chest and substernal and nonradiating. MD Complaint: chest pain -: Sudden Onset: during rest Pain Location: substernal, left chest Pain Radiation: none Severity: severe Severity scale (0 -10): 10 Quality: sharp Consistency: constant Improves With: rest Worsens With: exertion re: nausea, vomting, dyspnea. denies: diaphoresis, sense of impending doom Other Symptoms: denies: cough, fever, syncope, rash, acid taste in mouth, leg swelling, palpitations, burping Treatments Prior to Arrival: none - Related Data Home Medications Medication Instructions Recorded Confirmed Last Taken ALBUTEROL Inhaler (OR & NICU) 2 puff IH Q6H PRN 05/19/18 08/26/18 Unknown [ProAir HFA Inhaler] Lispro Insulin [Humalog] 15 unit SUB-Q TID 07/26/18 08/26/18 07/19/18 Fluticasone [Flonase] 1 spray NS QDAY PRN 08/26/18 08/26/18 Unknown Ibuprofen [Motrin] 600 mg PO Q8H PRN 08/26/18 08/26/18 Unknown Previous Rx's Medication Instructions Recorded Last Taken Type ALBUTEROL NEB's [Proventil 0.083% 2.5 mg IH QID PRN #30 nebu 08/12/18 Unknown Rx NEBS] AtorvaSTATin [Lipitor] 20 mg PO DAILY #30 tablet 08/12/18 Unknown Rx Insulin Glargine [Lantus VIAL] 25 units SUB-Q QHS #1 vial 08/12/18 Unknown Rx Lisinopril [Zestril] 20 mg PO QDAY #30 tablet 08/12/18 Unknown Rx amLODIPine [Norvasc] 10 mg PO DAILY #30 tablet 08/12/18 Unknown Rx cloNIDine-TTS PATCH [Catapres-Tts 0.3 mg TD QWEEK #4 patch 08/12/18 Unknown Rx Patch] hydrALAZINE [Apresoline TAB] 100 mg PO TID #90 tab 08/12/18 Unknown Rx Allergies Allergy/AdvReac Type Severity Reaction Status Date / Time amoxicillin Allergy Unknown Verified 07/03/18 20:57 Penicillins Allergy Unknown Verified 05/19/18 13:02 tramadol Allergy Unknown Verified 07/03/18 20:57 IV contrast Allergy Rash Uncoded 01/15/17 17:55 Heart Score - HEART Score History: Moderately suspicious EKG: Non-specific Age: 45-65 Risk factors: > 3 risk factors or hx of atherosclerotic disease Troponin: 1-3x normal limit HEART Score: 6 ED Review of Systems ROS: Stated complaint: CHEST PAIN/RAYMUNDO Other details as noted in HPI Constitutional: denies: chills, fever Eyes: denies: eye pain, eye discharge, vision change ENT: denies: ear pain, throat pain Respiratory: shortness of breath. denies: cough, wheezing Cardiovascular: chest pain. denies: palpitations Endocrine: no symptoms reported Gastrointestinal: nausea, vomiting. denies: abdominal pain, diarrhea Genitourinary: denies: urgency, dysuria, discharge Musculoskeletal: denies: back pain, joint swelling, arthralgia Skin: denies: rash, lesions Neurological: denies: headache, weakness, paresthesias Psychiatric: denies: anxiety, depression Hematological/Lymphatic: denies: easy bleeding, easy bruising ED Past Medical Hx - Past Medical History Previous Medical History?: Yes Hx Hypertension: Yes Hx Heart Attack/AMI: No Hx Congestive Heart Failure: No Hx Diabetes: Yes Hx Deep Vein Thrombosis: No Hx Pulmonary Embolism: No Hx Liver Disease: No Hx Renal Disease: Yes Hx Kidney Stones: Yes Hx Asthma: Yes Hx COPD: No Hx Tuberculosis: No Hx HIV: No Additional medical history: psorasis. NEUROPATHY. FIBROIDS - Surgical History Past Surgical History?: Yes Hx Coronary Stent: No Hx Pacemaker: No Hx Internal Defibrillator: No Additional Surgical History: X 1 , Hx. left wrist surgery 2 toes amputated r) foot. partial right foot amputation - Family History Family history: hypertension - Social History Smoking Status: Never Smoker Substance Use Type: None - Medications Home Medications: Home Medications Medication Instructions Recorded Confirmed Last Taken Type ALBUTEROL Inhaler (OR & NICU) 2 puff IH Q6H PRN 05/19/18 08/26/18 Unknown History [ProAir HFA Inhaler] Lispro Insulin [Humalog] 15 unit SUB-Q TID 07/26/18 08/26/18 07/19/18 History ALBUTEROL NEB's [Proventil 0.083% 2.5 mg IH QID PRN #30 nebu 08/12/18 08/26/18 Unknown Rx NEBS] AtorvaSTATin [Lipitor] 20 mg PO DAILY #30 tablet 08/12/18 08/26/18 Unknown Rx Insulin Glargine [Lantus VIAL] 25 units SUB-Q QHS #1 vial 08/12/18 08/26/18 Unknown Rx Lisinopril [Zestril] 20 mg PO QDAY #30 tablet 08/12/18 08/26/18 Unknown Rx amLODIPine [Norvasc] 10 mg PO DAILY #30 tablet 08/12/18 08/26/18 Unknown Rx cloNIDine-TTS PATCH [Catapres-Tts 0.3 mg TD QWEEK #4 patch 08/12/18 08/26/18 Unknown Rx Patch] hydrALAZINE [Apresoline TAB] 100 mg PO TID #90 tab 08/12/18 08/26/18 Unknown Rx Fluticasone [Flonase] 1 spray NS QDAY PRN 08/26/18 08/26/18 Unknown History Ibuprofen [Motrin] 600 mg PO Q8H PRN 08/26/18 08/26/18 Unknown History ED Physical Exam - General Limitations: No Limitations, Other General appearance: alert, in no apparent distress - Head Head exam: Present: atraumatic, normocephalic - Eye Eye exam: Present: normal appearance - ENT ENT exam: Present: mucous membranes moist - Neck Neck exam: Present: normal inspection - Respiratory Respiratory exam: Present: normal lung sounds bilaterally. Absent: respiratory distress - Cardiovascular Cardiovascular Exam: Present: regular rate, normal rhythm. Absent: systolic murmur, diastolic murmur, rubs, gallop - GI/Abdominal GI/Abdominal exam: Present: soft, normal bowel sounds - Extremities Exam Extremities exam: Present: normal inspection - Back Exam Back exam: Present: normal inspection - Neurological Exam Neurological exam: Present: alert, oriented X3 - Psychiatric Psychiatric exam: Present: normal affect, normal mood - Skin Skin exam: Present: warm, dry, intact, normal color. Absent: rash ED Course Vital Signs 08/26/18 08/26/18 08/26/18 09:58 10:01 10:16 Pulse Rate 112 H Respiratory 14 Rate Blood Pressure 191/89 204/116 204/116 O2 Sat by Pulse Oximetry 08/26/18 08/26/18 08/26/18 10:30 10:45 11:00 Pulse Rate 111 H 111 H 107 H Respiratory 13 20 28 H Rate Blood Pressure 210/108 182/95 188/88 O2 Sat by Pulse Oximetry 08/26/18 08/26/18 08/26/18 11:15 11:30 11:45 Pulse Rate 105 H 100 H 100 H Respiratory 27 H 32 H 15 Rate Blood Pressure 176/92 174/90 188/90 O2 Sat by Pulse 49 L 80 L Oximetry 08/26/18 08/26/18 08/26/18 12:00 12:15 12:30 Pulse Rate 96 H 97 H 99 H Respiratory 31 H 20 17 Rate Blood Pressure 174/94 175/75 174/74 O2 Sat by Pulse 50 L 86 80 L Oximetry 08/26/18 08/26/18 08/26/18 12:45 13:00 13:16 Pulse Rate 94 H 94 H 98 H Respiratory 28 H 26 H 14 Rate Blood Pressure 177/74 174/74 170/72 O2 Sat by Pulse 65 L 71 L 84 Oximetry 08/26/18 08/26/18 13:30 13:40 Pulse Rate 98 H 102 H Respiratory 12 Rate Blood Pressure 170/72 181/89 O2 Sat by Pulse 92 Oximetry - Reevaluation(s) Reevaluation #1: Discussed all results with patient patient agrees with plan of care and admission. Recently admitted to the hospitalist service for further evaluation and treatment. 08/26/18 13:07 - Consultations Consultation #1: Hospital was consulted for admission. Hospitalist to admit patient. 08/26/18 13:07 MOOSE score - Moose Score Age > 65: (0) No Aspirin use within the Past 7 Days: (0) No 3 or more CAD Risk Factors: (1) Yes 2 or more Angina events in past 24 hrs: (1) Yes Known CAD with more than 50% Stenosis: (0) No Elevated Cardiac Markers: (0) No ST Deviation Greater than 0.5mm: (0) No MOOSE Score: 2 ED Medical Decision Making - Lab Data Result diagrams: 08/26/18 10:07 08/26/18 10:01 - EKG Data -: EKG Interpreted by Me EKG shows normal: sinus rhythm, axis, intervals, QRS complexes, ST-T waves Rate: tachycardia - Radiology Data Radiology results: report reviewed PORTABLE CHEST INDICATION: Shortness of breath. COMPARISON: 08/01/2018 FINDINGS: Portable, frontal chest radiograph now demonstrates approximately 5.7 x 1.4 cm horizontal bandlike density in the right midlung, possibly marginated by the fissure. Grossly stable cardiomediastinal silhouette/mild cardiomegaly and increased perihilar markings. No significant pleural effusions or overt CHF however. Stable right-sided double-lumen catheter in the right atrium, tip projecting approximately 3 cm below the cavoatrial junction. EKG leads. Intact bones. CONCLUSION: New right midlung horizontal opacity (atelectasis/fluid) and possible perihilar congestion without overt CHF in this patient with stable mild cardiomegaly and right-sided central catheter, as described. Please correlate. Thank you for the opportunity to participate in this patient's care. Transcribed By: RS Dictated By: ARUN MILLER MD Electronically Authenticated By: ARUN MILLER MD Signed Date/Time: 08/26/18 1030 - Medical Decision Making Patient is a 48-year-old female presents to [facility] with chest pain and shortness of breath. Patient was complaining of nausea and vomiting. Patient admitted to the hospitalist service for further evaluation treatment. The patient had a mild elevation of her troponin is most likely secondary to chronic kidney disea se. Patient initial cardiac workup was negative otherwise. Reviewed. Patient's chest x-ray was reviewed. - Differential Diagnosis cp. sob. acs. chf. Critical Care Time: Yes Critical care attestation.: If time is entered above; I have spent that time in minutes in the direct care of this critically ill patient, excluding procedure time. Critical Care Time: 45 minutes. ED Disposition Clinical Impression: Elevated troponin, Anemia of chronic disease, SOB (shortness of breath) Pulmonary edema Qualifiers: Chronicity: acute Qualified Code(s): J81.0 - Acute pulmonary edema Cardiomyopathy Qualifiers: Cardiomyopathy type: unspecified Qualified Code(s): I42.9 - Cardiomyopathy, unspecified Congestive heart failure Qualifiers: Heart failure type: unspecified Heart failure chronicity: acute Qualified Code (s): I50.9 - Heart failure, unspecified Chest pain Qualifiers: Chest pain type: unspecified Qualified Code(s): R07.9 - Chest pain, unspecified Nausea & vomiting Qualifiers: Vomiting type: unspecified Vomiting Intractability: non-intractable Qualified Code(s): R11.2 - Nausea with vomiting, unspecified Disposition: -09 OP ADMIT IP TO THIS HOSP Is pt being admited?: Yes Does the pt Need Aspirin: No Condition: Critical Time of Disposition: 13:12
--- NOTE | 2018-08-26 10:34 | XRay Report ---
PORTABLE CHEST INDICATION: Shortness of breath. COMPARISON: 08/01/2018 FINDINGS: Portable, frontal chest radiograph now demonstrates approximately 5.7 x 1.4 cm horizontal bandlike density in the right midlung, possibly marginated by the fissure. Grossly stable cardiomediastinal silhouette/mild cardiomegaly and increased perihilar markings. No significant pleural effusions or overt CHF however. Stable right-sided double-lumen catheter in the right atrium, tip projecting approximately 3 cm below the cavoatrial junction. EKG leads. Intact bones. CONCLUSION: New right midlung horizontal opacity (atelectasis/fluid) and possible perihilar congestion without overt CHF in this patient with stable mild cardiomegaly and right-sided central catheter, as described. Please correlate. Thank you for the opportunity to participate in this patient's care.
[2018-08-26 10:47] LABS: Calcium 8.3 mg/dL (8.4-10.2)
[2018-08-26 11:09] LABS: Chol/HDL Ratio 2.76 %
[2018-08-26] MEDS ORDERED: MORPHINE IV ONE (13:05)
[2018-08-26] MEDS ORDERED: LOPRESSOR IV ONE (13:08)
--- NOTE | 2018-08-26 13:21 | History and Physical Report ---
History of Present Illness Chief complaint: My chest hurts History of present illness: 48 YO Female with ESRD on HD, Noncompliance, HTN, DM presents to ED for evaluation. Pt states that she has experienced shortness of breath over the past 1 day with worsening symptoms over the past 6 hours. . Pt states that pain is 10 /10, substernal, radiates to her back, sharp, intermittent, worsened with exertion, relieved with rest. Pt reported symptoms has changed multiple times during exam and interview. Pt complians of pain out of proportion to exam and interview. Pt has been noncompliant with dialysis. Pt denies fever, chills, palpitations, NVD, syncope, BRBPR, Trauma, productive cough, skin rash, unilateral leg swelling, calf pain, or recent ill contacts. Pt seen and evaluated in ED and found to have ESRD, as well as symptoms consistent with ACS. Pt admitted to telemetry. Nephrology consulted in ED for urgent dialysis. Past History Past Medical History: diabetes, ESRD, hypertension, other (psoriasis) Past Surgical History: , Other (bilateral foot) Social history: single Family history: diabetes, hypertension Medications and Allergies Allergies Allergy/AdvReac Type Severity Reaction Status Date / Time amoxicillin Allergy Unknown Verified 07/03/18 20:57 Penicillins Allergy Unknown Verified 05/19/18 13:02 tramadol Allergy Unknown Verified 07/03/18 20:57 IV contrast Allergy Rash Uncoded 01/15/17 17:55 Home Medications Medication Instructions Recorded Confirmed Last Taken Type ALBUTEROL Inhaler (OR & NICU) 2 puff IH Q6H PRN 05/19/18 08/26/18 Unknown History [ProAir HFA Inhaler] Lispro Insulin [Humalog] 15 unit SUB-Q TID 07/26/18 08/26/18 07/19/18 History ALBUTEROL NEB's [Proventil 0.083% 2.5 mg IH QID PRN #30 nebu 08/12/18 08/26/18 Unknown Rx NEBS] AtorvaSTATin [Lipitor] 20 mg PO DAILY #30 tablet 08/12/18 08/26/18 Unknown Rx Insulin Glargine [Lantus VIAL] 25 units SUB-Q QHS #1 vial 08/12/18 08/26/18 Unknown Rx Lisinopril [Zestril] 20 mg PO QDAY #30 tablet 08/12/18 08/26/18 Unknown Rx amLODIPine [Norvasc] 10 mg PO DAILY #30 tablet 08/12/18 08/26/18 Unknown Rx cloNIDine-TTS PATCH [Catapres-Tts 0.3 mg TD QWEEK #4 patch 08/12/18 08/26/18 Unknown Rx Patch] hydrALAZINE [Apresoline TAB] 100 mg PO TID #90 tab 08/12/18 08/26/18 Unknown Rx Fluticasone [Flonase] 1 spray NS QDAY PRN 08/26/18 08/26/18 Unknown History Ibuprofen [Motrin] 600 mg PO Q8H PRN 08/26/18 08/26/18 Unknown History Review of Systems Constitutional: no weight loss, no weight gain, no fever, no chills Ears, nose, mouth and throat: no ear pain, no ear discharge, no tinnitis, no decreased hearing, no nose pain Breasts: no change in shape, no swelling, no mass Cardiovascular: chest pain, shortness of breath, no orthopnea, no palpitations, no edema Respiratory: no cough, no cough with sputum, no hemoptysis Gastrointestinal: no nausea, no vomiting, no diarrhea, no constipation Genitourinary Female: no pelvic pain, no flank pain, no menorrhagia, no dysuria, no urinary frequency Rectal: no pain, no incontinence, no bleeding Musculoskeletal: no neck stiffness, no neck pain, no shooting arm pain, no arm numbness/tingling, no low back pain Integumentary: no rash, no pruritis, no redness, no sores, no wounds Neurological: no paralysis, no weakness, no parathesias, no numbness, no tingling, no seizures, no syncope Psychiatric: anxiety, no memory loss, no change in sleep habits, no sleep disturbances, no insomnia, no change in appetite Endocrine: no cold intolerance, no heat intolerance, no polyphagia, no excessive thirst, no polydipsia Hematologic/Lymphatic: no easy bruising, no easy bleeding, no lymphadenopathy, no lymphedema Allergic/Immunologic: no urticaria, no allergic rhinitis, no wheezing, no persistent infections, no anaphylaxis, no angioedema Exam - Constitutional Vitals: Temp Pulse Resp BP Pulse Ox 96 H 31 H 174/94 50 L 08/26/18 12:00 08/26/18 12:00 08/26/18 12:00 08/26/18 12:00 General appearance: Present: mild distress - EENT Eyes: Present: PERRL ENT: hearing intact, clear oral mucosa - Neck Neck: Present: supple, normal ROM - Respiratory Respiratory effort: normal Respiratory: bilateral: CTA - Cardiovascular Heart Sounds: Present: S1 & S2. Absent: rub, click - Extremities Extremities: pulses symmetrical, No edema Peripheral Pulses: within normal limits - Abdominal General gastrointestinal: Present: soft, non-tender, non-distended, normal bowel sounds Female genitourinary: Present: normal - Integumentary Integumentary: Present: clear, warm, dry - Musculoskeletal Musculoskeletal: gait normal, strength equal bilaterally - Psychiatric Psychiatric: appropriate mood/affect, intact judgment & insight - Neurologic Neurologic: CNII-XII intact, moves all extremities Results - Labs CBC & Chem 7: 08/26/18 10:07 08/26/18 10:01 Labs: Abnormal lab results 08/26/18 08/26/18 08/26/18 Range/Units 10:01 10:07 12:36 RBC 3.32 L (3.65-5.03) M/mm3 Hgb 9.1 L (10.1-14.3) gm/dl Hct 28.4 L (30.3-42.9) % RDW 20.8 H (13.2-15.2) % Lymph % (Auto) 9.0 L (13.4-35.0) % [place] % (Auto) 11.7 H (0.0-7.3) % Lymph # 0.4 L (1.2-5.4) K/mm3 Seg Neutrophils % 78.4 H (40.0-70.0) % Chloride 94.5 L (98-107) mmol/L BUN 20 H (7-17) mg/dL Creatinine 6.5 H (0.7-1.2) mg/dL Glucose 175 H (65-100) mg/dL Calcium 8.3 L (8.4-10.2) mg/dL Troponin T 0.412 H* 0.406 H* (0.00-0.029) ng/mL Assessment and Plan - Patient Problems (1) ESRD (end stage renal disease) on dialysis Current Visit: Yes Status: Acute Plan to address problem: Nephrology consulted in ED for urgent dialysis, strict I/O, daily weight, monitor uop q shift, renal diet, avoid nephrotoxic agents (2) ACS (acute coronary syndrome) Current Visit: Yes Status: Acute Plan to address problem: Serial cardiac enzymes, ekg, telemetry, CTA chest to assess for PE/Aortic disse ction. (3) HTN (hypertension) Current Visit: Yes Status: Acute Qualifiers: Hypertension type: essential hypertension Qualified Code(s): I10 - Essential (primary) hypertension Plan to address problem: monitor bp q shift, continue medical management (4) DVT prophylaxis Current Visit: Yes Status: Acute Plan to address problem: SCD to BLE while in bed
[2018-08-26] MEDS ORDERED: TYLENOL PO PRN (13:22)
[2018-08-26] MEDS ORDERED: SODIUM CHLORIDE FLUSH SYRINGE 10 ML IV PRN (13:22)
[2018-08-26] MEDS ORDERED: MOTRIN PO PRN (13:23)
[2018-08-26] MEDS ORDERED: PROVENTIL IH PRN ×2 (13:23→13:46)
[2018-08-26] MEDS ORDERED: PROAIR IH PRN (13:23)
[2018-08-26] MEDS ORDERED: ZOFRAN IV ONE (13:40)
[2018-08-26] MEDS: APRESOLINE PO SCH ×2 (14:52→20:45)
[2018-08-26] MEDS: CATAPRES-TTS PATCH TD SCH ×2 (14:53→22:33)
[2018-08-26] MEDS ORDERED: BENADRYL IV ONE (15:10)
[2018-08-26] MEDS ORDERED: FLONASE NS PRN (15:23)
[2018-08-26] MEDS ORDERED: DELTASONE PO NR (16:00)
[2018-08-26] MEDS: PEPCID IV SCH ×2 (17:08→22:23)
[2018-08-26] MEDS ORDERED: SOLU-Medrol IV ONE (17:13)
[2018-08-26] MEDS: HumaLOG SUB-Q SCH (17:40)
--- NOTE | 2018-08-26 20:37 | Cat Scan Report ---
FINAL REPORT PROCEDURE: CT ANGIO CHEST TECHNIQUE: Computerized tomographic angiography of the chest was performed during the IV injection o f iodinated nonionic contrast including image processing. The image data was postprocessed using 2-di mensional multiplanar reformatted (MPR) and 3-dimensional (MIP and/or volume rendered) techniques. HISTORY: chest pain COMPARISON: No prior studies are available for comparison. FINDINGS: Pulmonary outflow tract, right and left main pulmonary arteries and their proximal branches: Clear, n o filling defects seen to suggest pulmonary embolus. Pericardium: Small pericardial effusion appears to be present. Thoracic aorta: Atherosclerotic changes are visualized, no evidence of aneurysmal dilatation or disse ction. Coronary arteries: Are unremarkable. Mediastinum and hilar regions: Nonspecific subcentimeter lymph nodes are visualized. No pathologicall y enlarged lymph nodes or masses are identified. Lung Velasquez: Moderate size right pleural effusion and small left pleural effusion are present. Patchy alveolar densities are seen in the right perihilar region extending into the right upper lobe. There is also patchy alveolar density present in the left perihilar region extending into the left upper l obe and left lower lobe. Pneumonia suspected. Atelectasis could present this manner. Small amount of patchy densities present in both lower lobes. Upper abdomen: No acute or focal abnormality is seeen. Other: Right jugular central venous line in place. No evidence of pneumothorax. Tip of the catheter a ppears to project in the mid SVC. There is an oval density in the superior lateral aspect of the right breast measuring approximately 2 centimeter x 2.3 centimeter. This is seen on image 35 series 2 axial image. IMPRESSION: No evidence of pulmonary embolus Moderate size right pleural effusion and small left pleural effusion is present. Patchy alveolar densities present bilaterally as described above suggesting pneumonia. Atelectasis co uld present this manner. Central venous line in place as described. No evidence of pneumothorax. Small pericardial effusion appears to be present. Oval soft tissue mass visualized superior lateral aspect right breast. Correlation with physical exam and mammography recommended. Both benign and malignant masses could present this manner..
[2018-08-26] MEDS: LANTUS SUB-Q SCH (22:23)
[2018-08-26] MEDS: SODIUM CHLORIDE FLUSH SYRINGE 10 ML IV SCH (22:24)
[2018-08-27] MEDS: HumaLOG SUB-Q SCH ×3 (08:00→18:55)
--- NOTE | 2018-08-27 09:55 | Consultation ---
History of Present Illness Consult date: 08/27/18 Requesting physician: FRANKO ERVIN Consult reason: chest pain History of present illness: The pt is a 47 YO female with a past medical history significant for ESRD on HD, HTN, DM, noncompliance. She has been seen by our practice on prior hospitalization but has not been compliant with OP follow up. She presented with complaints of chest pain for several days prior to arrival. She describes her chest pain as an intermittent, circumferential sharp pain which is aggravated by coughing. She also c/o intermittently productive cough, fever, chills and nasal congestion. She denies any SOB, palpitations, n/v, diaphoresis, dizziness or syncope. Echo done 03/2018 was TDS, EF 50-55%, abnormal diastolic function, LA mildly dilated, small pericardial effusion. Stress MPI done 12/2016 was negative for ischemia, EF 59%. Past History Past Medical History: diabetes, dialysis, ESRD, hypertension, other (psoriasis) Past Surgical History: , Other (bilateral foot) Social history: single Family history: diabetes, hypertension Medications and Allergies Allergies Allergy/AdvReac Type Severity Reaction Status Date / Time amoxicillin Allergy Unknown Verified 07/03/18 20:57 Penicillins Allergy Unknown Verified 05/19/18 13:02 tramadol Allergy Unknown Verified 07/03/18 20:57 IV contrast Allergy Rash Uncoded 01/15/17 17:55 Home Medications Medication Instructions Recorded Confirmed Last Taken Type ALBUTEROL Inhaler (OR & NICU) 2 puff IH Q6H PRN 05/19/18 08/26/18 Unknown History [ProAir HFA Inhaler] Lispro Insulin [Humalog] 15 unit SUB-Q TID 07/26/18 08/26/18 07/19/18 History ALBUTEROL NEB's [Proventil 0.083% 2.5 mg IH QID PRN #30 nebu 08/12/18 08/26/18 Unknown Rx NEBS] AtorvaSTATin [Lipitor] 20 mg PO DAILY #30 tablet 08/12/18 08/26/18 Unknown Rx Insulin Glargine [Lantus VIAL] 25 units SUB-Q QHS #1 vial 08/12/18 08/26/18 Unknown Rx Lisinopril [Zestril] 20 mg PO QDAY #30 tablet 08/12/18 08/26/18 Unknown Rx amLODIPine [Norvasc] 10 mg PO DAILY #30 tablet 08/12/18 08/26/18 Unknown Rx cloNIDine-TTS PATCH [Catapres-Tts 0.3 mg TD QWEEK #4 patch 08/12/18 08/26/18 Unknown Rx Patch] hydrALAZINE [Apresoline TAB] 100 mg PO TID #90 tab 08/12/18 08/26/18 Unknown Rx Fluticasone [Flonase] 1 spray NS QDAY PRN 08/26/18 08/26/18 Unknown History Ibuprofen [Motrin] 600 mg PO Q8H PRN 08/26/18 08/26/18 Unknown History Active Meds: Active Medications Acetaminophen (Tylenol) 650 mg PO Q4H PRN PRN Reason: Pain MILD(1-3)/Fever >100.5/[facility]URA Albuterol (Proventil) 2.5 mg IH QID PRN PRN Reason: SHORTNESS OF BREATH/WHEEZING Amlodipine Besylate (Norvasc) 10 mg PO DAILY [facility] Atorvastatin Calcium (Lipitor) 20 mg PO HS [facility] Clonidine HCl (Catapres-Tts Patch) 0.3 mg TD We [facility] Last Admin: 08/26/18 22:33 Dose: Not Given Documented by: Famotidine (Pepcid) 20 mg IV BID [facility] Last Admin: 08/26/18 22:23 Dose: 20 mg Documented by: Fluticasone Propionate (Flonase) 50 mcg NS QDAY PRN PRN Reason: Congestion Hydralazine HCl (Apresoline) 100 mg PO TID [facility] Last Admin: 08/26/18 20:45 Dose: 100 mg Documented by: Ibuprofen (Motrin) 600 mg PO Q8H PRN PRN Reason: Pain Insulin Glargine (Lantus) 25 units SUB-Q QHS [facility] Last Admin: 08/26/18 22:23 Dose: Not Given Documented by: Insulin Human Lispro (Humalog) 15 unit SUB-Q TIDWM [facility] Last Admin: 08/26/18 17:40 Dose: Not Given Documented by: Lisinopril (Zestril) 20 mg PO QDAY [facility] Ondansetron HCl (Zofran) 4 mg IV Q8H PRN PRN Reason: Nausea And Vomiting Sodium Chloride (Sodium Chloride Flush Syringe 10 Ml) 10 ml IV BID [facility] Last Admin: 08/26/18 22:24 Dose: 10 ml Documented by: Sodium Chloride (Sodium Chloride Flush Syringe 10 Ml) 10 ml IV PRN PRN PRN Reason: LINE FLUSH Review of Systems Constitutional: no weight loss, no weight gain, no fever, no chills, no sweats Ears, nose, mouth and throat: no ear pain, no nose pain, no sinus pressure, no sinus pain Cardiovascular: chest pain, high blood pressure, no orthopnea, no palpitations, no rapid/irregular heart beat, no edema, no syncope, no lightheadedness, no shortness of breath, no dyspnea on exertion, no leg edema Respiratory: cough, cough with sputum, congestion, other (pain with coughing), no shortness of breath, no dyspnea on exertion, no wheezing, no pain on inspiration Gastrointestinal: no abdominal pain, no nausea, no vomiting, no diarrhea, no constipation, no change in bowel habits Genitourinary Female: no pelvic pain, no flank pain, no dysuria, no urinary frequency, no urgency Musculoskeletal: no neck stiffness, no neck pain, no shooting arm pain, no arm numbness/tingling, no low back pain, no shooting leg pain Integumentary: no rash, no pruritis, no redness, no sores, no wounds Neurological: no head injury, no paralysis, no weakness, no parathesias, no numbness, no tingling, no seizures, no syncope Endocrine: no cold intolerance, no heat intolerance Hematologic/Lymphatic: no easy bruising, no easy bleeding Allergic/Immunologic: no urticaria, no wheezing Physical Examination Vital Signs BP 191/89 08/26/18 09:58 General appearance: no acute distress HEENT: Positive: PERRL, Normocephaly, Mucus Membranes Moist Neck: Positive: neck supple, trachea midline Cardiac: Positive: Reg Rate and Rhythm, S1/S2 Lungs: Positive: Decreased Breath Sounds Neuro: Positive: Grossly Intact Abdomen: Positive: Soft. Negative: Tender Skin: Negative: Rash, Wound Musculoskeletal: No Pain Extremities: Absent: edema Results 08/26/18 10:07 08/26/18 10:01 Lipids 08/26/18 Range/Units 10:01 Triglycerides 96 (2-149) mg/dL Cholesterol 116 (50-199) mg/dL HDL Cholesterol 42 (40-59) mg/dL Cholesterol/HDL Ratio 2.76 % CBC 08/26/18 Range/Units 10:07 WBC 4.6 (4.5-11.0) K/mm3 RBC 3.32 L (3.65-5.03) M/mm3 Hgb 9.1 L (10.1-14.3) gm/dl Hct 28.4 L (30.3-42.9) % Plt Count 158 (140-440) K/mm3 Lymph # 0.4 L (1.2-5.4) K/mm3 [place] # 0.5 (0.0-0.8) K/mm3 Eos # 0.0 (0.0-0.4) K/mm3 Baso # 0.0 (0.0-0.1) K/mm3 Comprehensive Metabolic Panel 08/26/18 Range/Units 10:01 Sodium 138 (137-145) mmol/L Potassium 4.3 (3.6-5.0) mmol/L Chloride 94.5 L (98-107) mmol/L Carbon Dioxide 25 (22-30) mmol/L BUN 20 H (7-17) mg/dL Creatinine 6.5 H (0.7-1.2) mg/dL Glucose 175 H (65-100) mg/dL Calcium 8.3 L (8.4-10.2) mg/dL - Imaging and Cardiology Echo: report reviewed (03/2018 was TDS, EF 50-55%, abnormal diastolic function, LA mildly dilated, small pericardial effusion. ) EKG: report reviewed, image reviewed EKG interpretations - Telemetry EKG Rhythm: Sinus Rhythm - EKG Sinus rhythms and dysrhythmias: sinus rhythm Assessment and Plan Pt's chest pain appears pleuritic in nature. CXR with right sided infiltrate - ? PNA. ECG with no acute ischemic changes, troponin elevation less than prior admissions and currently nonspecific in setting of ESRD and HTN urgency. No c urrent indication for repeat ischemic evaluation at this time. Optimize anti-hypertensive regimen. The patient has been seen in conjunction with Dr. SHANNON Bo who agrees with the assessment and plan of care. - Patient Problems (1) Pneumonia Current Visit: Yes Status: Suspected (2) Chest pain Current Visit: Yes Status: Acute Qualifiers: Chest pain type: unspecified Qualified Code(s): R07.9 - Chest pain, unspecified (3) Hypertensive urgency Current Visit: No Status: Acute (4) ESRD (end stage renal disease) on dialysis Current Visit: Yes Status: Chronic (5) Elevated troponin Current Visit: Yes Status: Chronic (6) Anemia Current Visit: Yes Status: Chronic Qualifiers: Anemia type: unspecified type Qualified Code(s): D64.9 - Anemia, unspecified (7) Diabetes Current Visit: Yes Status: Chronic (8) Hx of amputation of foot Current Visit: Yes Status: Chronic (9) History of noncompliance with medical treatment Current Visit: Yes Status: Chronic
--- NOTE | 2018-08-27 10:02 | Consultation ---
History of Present Illness - Reason for Consult Consult date: 08/27/18 end stage renal disease - History of Present Illness Patient is a 48-year-old female who presented to the ED with 10 out of 10 chest pain and shortness of breath. She reports that pain has improved but is exacerbated with cough. She denies productive cough, fever, chills. . Past History Past Medical History: diabetes, dialysis, ESRD, hypertension, other (psoriasis) Past Surgical History: , Other (bilateral foot) Social history: single Family history: diabetes, hypertension Medications and Allergies Allergies Allergy/AdvReac Type Severity Reaction Status Date / Time amoxicillin Allergy Unknown Verified 07/03/18 20:57 Penicillins Allergy Unknown Verified 05/19/18 13:02 tramadol Allergy Unknown Verified 07/03/18 20:57 IV contrast Allergy Rash Uncoded 01/15/17 17:55 Home Medications Medication Instructions Recorded Confirmed Last Taken Type ALBUTEROL Inhaler (OR & NICU) 2 puff IH Q6H PRN 05/19/18 08/26/18 Unknown History [ProAir HFA Inhaler] Lispro Insulin [Humalog] 15 unit SUB-Q TID 07/26/18 08/26/18 07/19/18 History ALBUTEROL NEB's [Proventil 0.083% 2.5 mg IH QID PRN #30 nebu 08/12/18 08/26/18 Unknown Rx NEBS] AtorvaSTATin [Lipitor] 20 mg PO DAILY #30 tablet 08/12/18 08/26/18 Unknown Rx Insulin Glargine [Lantus VIAL] 25 units SUB-Q QHS #1 vial 08/12/18 08/26/18 Unknown Rx Lisinopril [Zestril] 20 mg PO QDAY #30 tablet 08/12/18 08/26/18 Unknown Rx amLODIPine [Norvasc] 10 mg PO DAILY #30 tablet 08/12/18 08/26/18 Unknown Rx cloNIDine-TTS PATCH [Catapres-Tts 0.3 mg TD QWEEK #4 patch 08/12/18 08/26/18 Unknown Rx Patch] hydrALAZINE [Apresoline TAB] 100 mg PO TID #90 tab 08/12/18 08/26/18 Unknown Rx Fluticasone [Flonase] 1 spray NS QDAY PRN 08/26/18 08/26/18 Unknown History Ibuprofen [Motrin] 600 mg PO Q8H PRN 08/26/18 08/26/18 Unknown History Active Meds: Active Medications Acetaminophen (Tylenol) 650 mg PO Q4H PRN PRN Reason: Pain MILD(1-3)/Fever >100.5/[facility]URA Albuterol (Proventil) 2.5 mg IH QID PRN PRN Reason: SHORTNESS OF BREATH/WHEEZING Amlodipine Besylate (Norvasc) 10 mg PO DAILY [facility] Atorvastatin Calcium (Lipitor) 20 mg PO HS [facility] Clonidine HCl (Catapres-Tts Patch) 0.3 mg TD We [facility] Last Admin: 08/26/18 22:33 Dose: Not Given Documented by: Famotidine (Pepcid) 20 mg IV BID [facility] Last Admin: 08/26/18 22:23 Dose: 20 mg Documented by: Fluticasone Propionate (Flonase) 50 mcg NS QDAY PRN PRN Reason: Congestion Hydralazine HCl (Apresoline) 100 mg PO TID [facility] Last Admin: 08/26/18 20:45 Dose: 100 mg Documented by: Ibuprofen (Motrin) 600 mg PO Q8H PRN PRN Reason: Pain Insulin Glargine (Lantus) 25 units SUB-Q QHS [facility] Last Admin: 08/26/18 22:23 Dose: Not Given Documented by: Insulin Human Lispro (Humalog) 15 unit SUB-Q TIDWM [facility] Last Admin: 08/26/18 17:40 Dose: Not Given Documented by: Lisinopril (Zestril) 20 mg PO QDAY [facility] Ondansetron HCl (Zofran) 4 mg IV Q8H PRN PRN Reason: Nausea And Vomiting Sodium Chloride (Sodium Chloride Flush Syringe 10 Ml) 10 ml IV BID [facility] Last Admin: 08/26/18 22:24 Dose: 10 ml Documented by: Sodium Chloride (Sodium Chloride Flush Syringe 10 Ml) 10 ml IV PRN PRN PRN Reason: LINE FLUSH Review of Systems All systems: negative Exam - Vital Signs Vital signs: Vital Signs BP 191/89 08/26/18 09:58 - General Appearance General appearance: well-developed EENT: ATNC Respiratory: Clear to Ascultation Heart: regular, S1S2 Gastrointestinal: Present: normal. Absent: tenderness, distended Integumentary: warm and dry Musculoskeletal: Present: other (no edema) Psychiatric: cooperative Results - Lab Results 08/26/18 10:07 08/26/18 10:01 Most recent lab results Calcium 8.3 mg/dL (8.4-10.2) L 08/26/18 10:01 Assessment and Plan Impression * End-stage renal disease on maintenance hemodialysis * Chest pain * Hx of MRSA bacteremia --Blood cx: MRSA (Aug 01) --Blood cx: MRSA, coag neg staph (Aug 03) --Blood cx: NGTD (Aug 06) * Hypertension * Type II DM * Diabetic gastroparesis Recommendations * Continue HD - resume outpatient TTS schedule * UF as tolerated * Cardiology consultation pending * Resume outpatient Vancomycin per ID recommendation at last admission: Vancomycin for a total of 6 weeks ending 09/17/18 * Epogen TIW prn * Adjust diet and meds for ESRD state
[2018-08-27] MEDS: ZESTRIL PO SCH (11:33)
[2018-08-27] MEDS: APRESOLINE PO SCH ×3 (11:33→21:08)
[2018-08-27] MEDS: NORVASC PO SCH (11:33)
[2018-08-27] MEDS: PEPCID IV SCH (11:33)
[2018-08-27] MEDS: SODIUM CHLORIDE FLUSH SYRINGE 10 ML IV SCH ×2 (11:35→21:08)
[2018-08-27] MEDS ORDERED: VANCOMYCIN/NS 1 GM/250 ML 1 GM/250 ML BAG IV ONE (11:49)
[2018-08-27] MEDS ORDERED: VANCOMYCIN PHARMACY TO DOSE IV SCH (12:00)
--- NOTE | 2018-08-27 12:08 | Progress Note ---
Assessment and Plan Assessment and plan: ESRD. Continue hemodialysis per nephrology. Chest pain. Patient undergo Lexiscan in a.m. MRSA bacteremia. Resume outpatient Vancomycin per ID recommendation at last admission: Vancomycin for a total of 6 weeks ending 09/17/18 Hypertension. Continue antihypertensive medications. Diabetes mellitus type 2. Continue Accu-Cheks and sliding scale insulin. Diabetic gastroparesis. Reglan. History Interval history: No new issues overnight. Hospitalist Physical - Constitutional Vitals: Temp Pulse Resp BP Pulse Ox 98.5 F 91 H 18 190/97 97 08/27/18 11:38 08/27/18 11:38 08/27/18 11:38 08/27/18 11:38 08/27/18 11:38 General appearance: Present: no acute distress - EENT Eyes: Present: PERRL, EOM intact ENT: hearing intact, clear oral mucosa, dentition normal - Neck Neck: Present: supple, normal ROM - Respiratory Respiratory effort: normal Respiratory: bilateral: CTA - Cardiovascular Rhythm: regular Heart Sounds: Present: S1 & S2. Absent: gallop, rub - Extremities Extremities: no ischemia, No edema, Full ROM - Abdominal General gastrointestinal: soft, non-tender, non-distended, normal bowel sounds - Integumentary Integumentary: Present: clear, warm, dry - Neurologic Neurologic: CNII-XII intact, moves all extremities Results - Labs CBC & Chem 7: 08/26/18 10:07 08/26/18 10:01 Labs: Laboratory Last Values WBC 4.6 K/mm3 (4.5-11.0) 08/26/18 10:07 RBC 3.32 M/mm3 (3.65-5.03) L 08/26/18 10:07 Hgb 9.1 gm/dl (10.1-14.3) L 08/26/18 10:07 Hct 28.4 % (30.3-42.9) L 08/26/18 10:07 MCV 86 fl (79-97) 08/26/18 10:07 MCH 28 pg (28-32) 08/26/18 10:07 MCHC 32 % (30-34) 08/26/18 10:07 RDW 20.8 % (13.2-15.2) H 08/26/18 10:07 Plt Count 158 K/mm3 (140-440) 08/26/18 10:07 Lymph % (Auto) 9.0 % (13.4-35.0) L 08/26/18 10:07 [place] % (Auto) 11.7 % (0.0-7.3) H 08/26/18 10:07 Eos % (Auto) 0.0 % (0.0-4.3) 08/26/18 10:07 Baso % (Auto) 0.9 % (0.0-1.8) 08/26/18 10:07 Lymph # 0.4 K/mm3 (1.2-5.4) L 08/26/18 10:07 [place] # 0.5 K/mm3 (0.0-0.8) 08/26/18 10:07 Eos # 0.0 K/mm3 (0.0-0.4) 08/26/18 10:07 Baso # 0.0 K/mm3 (0.0-0.1) 08/26/18 10:07 Seg Neutrophils % 78.4 % (40.0-70.0) H 08/26/18 10:07 Seg Neutrophils # 3.6 K/mm3 (1.8-7.7) 08/26/18 10:07 Sodium 138 mmol/L (137-145) 08/26/18 10:01 Potassium 4.3 mmol/L (3.6-5.0) 08/26/18 10:01 Chloride 94.5 mmol/L (98-107) L 08/26/18 10:01 Carbon Dioxide 25 mmol/L (22-30) 08/26/18 10:01 Anion Gap 23 mmol/L 08/26/18 10:01 BUN 20 mg/dL (7-17) H 08/26/18 10:01 Creatinine 6.5 mg/dL (0.7-1.2) H 08/26/18 10:01 Estimated GFR 7 ml/min 08/26/18 10:01 BUN/Creatinine Ratio 3 % 08/26/18 10:01 Glucose 175 mg/dL (65-100) H 08/26/18 10:01 POC Glucose 193 (70-105) H 08/27/18 06:19 Calcium 8.3 mg/dL (8.4-10.2) L 08/26/18 10:01 Troponin T 0.433 ng/mL (0.00-0.029) H* 08/26/18 16:51 NT-Pro-B Natriuret Pep 00358 pg/mL (0-450) H 08/26/18 12:36 Triglycerides 96 mg/dL (2-149) 08/26/18 10:01 Cholesterol 116 mg/dL (50-199) 08/26/18 10:01 LDL Cholesterol Direct 60 mg/dL (50-130) 08/26/18 10:01 HDL Cholesterol 42 mg/dL (40-59) 08/26/18 10:01 Cholesterol/HDL Ratio 2.76 % 08/26/18 10:01
[2018-08-27] MEDS ORDERED: VANCOMYCIN 1,500 MG in NACL 0.9% 500 ML 500 ML IV ONE ×2 (12:30→18:45)
[2018-08-27] MEDS ORDERED: NACL 0.9% 100 ML IV PRN (12:45)
[2018-08-27] MEDS ORDERED: BENADRYL IV ONE (14:43)
[2018-08-27] MEDS ORDERED: NACL 0.9 (PRIMING MACHINE ONLY DIALYSIS) MC ONE (14:49)
[2018-08-27] MEDS ORDERED: BENADRYL ONE (14:51)
[2018-08-27] MEDS: PEPCID PO SCH (21:07)
[2018-08-28] MEDS ORDERED: BENADRYL IV ONE (00:27)
[2018-08-28] MEDS: LANTUS SUB-Q SCH ×2 (00:28→22:14)
[2018-08-28] MEDS: APRESOLINE PO SCH ×3 (07:53→22:14)
[2018-08-28] MEDS: PEPCID PO SCH ×2 (10:15→22:14)
[2018-08-28] MEDS: SODIUM CHLORIDE FLUSH SYRINGE 10 ML IV SCH ×2 (10:16→22:15)
[2018-08-28] MEDS: ZESTRIL PO SCH (10:16)
[2018-08-28] MEDS: NORVASC PO SCH (10:16)
[2018-08-28] MEDS: HumaLOG SUB-Q SCH ×3 (10:41→17:20)
--- NOTE | 2018-08-28 10:43 | Progress Note ---
Assessment and Plan Impression * End-stage renal disease on maintenance hemodialysis * Chest pain * PNA--cta suggestive of PNA * Hx of MRSA bacteremia --Blood cx: MRSA (Aug 01) --Blood cx: MRSA, coag neg staph (Aug 03) --Blood cx: NGTD (Aug 06) * Hypertension * Type II DM * Diabetic gastroparesis Recommendations * Continue HD - TTS schedule * UF as tolerated * iv levaquin for PNA--?CAP * Cardiology input noted * Resume outpatient Vancomycin per ID recommendation at last admission: Vancomycin for a total of 6 weeks ending 09/17/18 * Epogen TIW prn * Adjust diet and meds for ESRD state Subjective Date of service: 08/28/18 Principal diagnosis: esrd Interval history: resting in bed today Objective - Exam Narrative Exam: General appearance: well-developed EENT: ATNC Respiratory: Clear to Ascultation Heart: regular, S1S2 Gastrointestinal: Present: normal. Absent: tenderness, distended Integumentary: warm and dry Musculoskeletal: Present: other (no edema) Psychiatric: cooperative - Vital Signs Vital signs: Vital Signs - 12hr 08/28/18 00:06 Temperature 98.1 F Pulse Rate 90 Respiratory 18 Rate Blood Pressure 166/71 O2 Sat by Pulse 98 Oximetry - Lab 08/26/18 10:07 08/26/18 10:01 Most recent lab results Calcium 8.3 mg/dL (8.4-10.2) L 08/26/18 10:01 Medications & Allergies - Medications Allergies/Adverse Reactions: Allergies amoxicillin Allergy (Verified 07/03/18 20:57) Unknown Penicillins Allergy (Verified 05/19/18 13:02) Unknown tramadol Allergy (Verified 07/03/18 20:57) Unknown IV contrast Allergy (Uncoded 01/15/17 17:55) Rash Home Medications: Home Medications Medication Instructions Recorded Confirmed Last Taken Type ALBUTEROL Inhaler (OR & NICU) 2 puff IH Q6H PRN 05/19/18 08/26/18 Unknown History [ProAir HFA Inhaler] Lispro Insulin [Humalog] 15 unit SUB-Q TID 07/26/18 08/26/18 07/19/18 History ALBUTEROL NEB's [Proventil 0.083% 2.5 mg IH QID PRN #30 nebu 08/12/18 08/26/18 Unknown Rx NEBS] AtorvaSTATin [Lipitor] 20 mg PO DAILY #30 tablet 08/12/18 08/26/18 Unknown Rx Insulin Glargine [Lantus VIAL] 25 units SUB-Q QHS #1 vial 08/12/18 08/26/18 Unknown Rx Lisinopril [Zestril] 20 mg PO QDAY #30 tablet 08/12/18 08/26/18 Unknown Rx amLODIPine [Norvasc] 10 mg PO DAILY #30 tablet 08/12/18 08/26/18 Unknown Rx cloNIDine-TTS PATCH [Catapres-Tts 0.3 mg TD QWEEK #4 patch 08/12/18 08/26/18 Unknown Rx Patch] hydrALAZINE [Apresoline TAB] 100 mg PO TID #90 tab 08/12/18 08/26/18 Unknown Rx Fluticasone [Flonase] 1 spray NS QDAY PRN 08/26/18 08/26/18 Unknown History Ibuprofen [Motrin] 600 mg PO Q8H PRN 08/26/18 08/26/18 Unknown History Active Medications: Generic Name Dose Route Start Last Admin Trade Name Freq PRN Reason Stop Dose Admin Acetaminophen 650 mg 08/26/18 13:22 Tylenol PO Q4H PRN Pain MILD(1-3)/Fever >100.5/[place]URA Albuterol 2.5 mg 08/26/18 13:23 Proventil IH QID PRN SHORTNESS OF BREATH/WHEEZING Amlodipine Besylate 10 mg 08/27/18 10:00 08/28/18 10:16 Norvasc PO 10 mg DAILY [facility] Administration Atorvastatin Calcium 20 mg 08/27/18 22:00 08/27/18 21:07 Lipitor PO 20 mg HS [facility] Administration Clonidine HCl 0.3 mg 08/26/18 15:00 08/26/18 22:33 Catapres-Tts Patch TD Not Given We [facility]HA Famotidine 10 mg 08/27/18 22:00 08/28/18 10:15 Pepcid PO 10 mg BID [facility] Administration Fluticasone Propionate 50 mcg 08/26/18 15:23 Flonase NS QDAY PRN Congestion Hydralazine HCl 100 mg 08/26/18 14:00 08/28/18 07:53 Apresoline PO 100 mg TID [facility] Administration Sodium Chloride 100 mls @ 999 mls/hr 08/27/18 12:45 Nacl 0.9% IV LUIS PRN Hypotension Levofloxacin/Dextrose 750 mg in 150 mls @ 100 mls/hr 08/29/18 10:00 Levaquin 750mg/150ml IV Q24HR [facility] Protocol Ibuprofen 600 mg 08/26/18 13:23 Motrin PO Q8H PRN Pain Insulin Glargine 25 units 08/26/18 22:00 08/28/18 00:28 Lantus SUB-Q Not Given QHS [facility] Insulin Human Lispro 15 unit 08/26/18 17:00 08/27/18 18:55 Humalog SUB-Q 15 unit TIDWM [facility] Administration Lisinopril 20 mg 08/27/18 10:00 08/28/18 10:16 Zestril PO 20 mg QDAY [facility] Administration Ondansetron HCl 4 mg 08/26/18 13:22 Zofran IV Q8H PRN Nausea And Vomiting Sodium Chloride 10 ml 08/26/18 22:00 08/28/18 10:16 Sodium Chloride Flush Syringe 10 Ml IV 10 ml BID [facility] Administration Sodium Chloride 10 ml 08/26/18 13:22 Sodium Chloride Flush Syringe 10 Ml IV PRN PRN LINE FLUSH
--- NOTE | 2018-08-28 11:23 | Consultation ---
History of Present Illness Consult date: 08/28/18 Chief complaint: Diabetic ulcer - right foot - History of present illness History of present illness: 48 yo diabetic female s/p right TMA with a plantar ulcer on her right foot. She is being followed in the [facility]. She has no complaints related to the ulcer and denies associated fever, chills or drainage. Past History Past Medical History: diabetes, dialysis, ESRD, hypertension, other (psoriasis) Past Surgical History: , Other (bilateral foot) Social history: single Family history: diabetes, hypertension Medications and Allergies Allergies Allergy/AdvReac Type Severity Reaction Status Date / Time amoxicillin Allergy Unknown Verified 07/03/18 20:57 Penicillins Allergy Unknown Verified 05/19/18 13:02 tramadol Allergy Unknown Verified 07/03/18 20:57 IV contrast Allergy Rash Uncoded 01/15/17 17:55 Home Medications Medication Instructions Recorded Confirmed Last Taken Type ALBUTEROL Inhaler (OR & NICU) 2 puff IH Q6H PRN 05/19/18 08/26/18 Unknown History [ProAir HFA Inhaler] Lispro Insulin [Humalog] 15 unit SUB-Q TID 07/26/18 08/26/18 07/19/18 History ALBUTEROL NEB's [Proventil 0.083% 2.5 mg IH QID PRN #30 nebu 08/12/18 08/26/18 Unknown Rx NEBS] AtorvaSTATin [Lipitor] 20 mg PO DAILY #30 tablet 08/12/18 08/26/18 Unknown Rx Insulin Glargine [Lantus VIAL] 25 units SUB-Q QHS #1 vial 08/12/18 08/26/18 Unknown Rx Lisinopril [Zestril] 20 mg PO QDAY #30 tablet 08/12/18 08/26/18 Unknown Rx amLODIPine [Norvasc] 10 mg PO DAILY #30 tablet 08/12/18 08/26/18 Unknown Rx cloNIDine-TTS PATCH [Catapres-Tts 0.3 mg TD QWEEK #4 patch 08/12/18 08/26/18 Unknown Rx Patch] hydrALAZINE [Apresoline TAB] 100 mg PO TID #90 tab 08/12/18 08/26/18 Unknown Rx Fluticasone [Flonase] 1 spray NS QDAY PRN 08/26/18 08/26/18 Unknown History Ibuprofen [Motrin] 600 mg PO Q8H PRN 08/26/18 08/26/18 Unknown History Active Meds: Active Medications Acetaminophen (Tylenol) 650 mg PO Q4H PRN PRN Reason: Pain MILD(1-3)/Fever >100.5/[facility]A Albuterol (Proventil) 2.5 mg IH QIDRT [facility] Amlodipine Besylate (Norvasc) 10 mg PO DAILY [facility] Last Admin: 08/28/18 10:16 Dose: 10 mg Documented by: Atorvastatin Calcium (Lipitor) 20 mg PO HS [facility] Last Admin: 08/27/18 21:07 Dose: 20 mg Documented by: Clonidine HCl (Catapres-Tts Patch) 0.3 mg TD We [facility] Last Admin: 08/26/18 22:33 Dose: Not Given Documented by: Famotidine (Pepcid) 10 mg PO BID [facility] Last Admin: 08/28/18 10:15 Dose: 10 mg Documented by: Fluticasone Propionate (Flonase) 50 mcg NS QDAY PRN PRN Reason: Congestion Hydralazine HCl (Apresoline) 100 mg PO TID [facility] Last Admin: 08/28/18 07:53 Dose: 100 mg Documented by: Sodium Chloride (Nacl 0.9%) 100 mls @ 999 mls/hr IV LUIS PRN PRN Reason: Hypotension Levofloxacin/Dextrose (Levaquin 750mg/150ml) 750 mg in 150 mls @ 100 mls/hr IV ONCE ONE; Protocol Stop: 08/28/18 13:29 Levofloxacin/Dextrose (Levaquin 500mg/100ml) 500 mg in 100 mls @ 100 mls/hr IV Q48HR [facility] Insulin Glargine (Lantus) 25 units SUB-Q QHS [facility] Last Admin: 08/28/18 00:28 Dose: Not Given Documented by: Insulin Human Lispro (Humalog) 15 unit SUB-Q TIDWM [facility] Last Admin: 08/28/18 10:41 Dose: Not Given Documented by: Lisinopril (Zestril) 20 mg PO QDAY [facility] Last Admin: 08/28/18 10:16 Dose: 20 mg Documented by: Ondansetron HCl (Zofran) 4 mg IV Q8H PRN PRN Reason: Nausea And Vomiting Sodium Chloride (Sodium Chloride Flush Syringe 10 Ml) 10 ml IV BID [facility] Last Admin: 08/28/18 10:16 Dose: 10 ml Documented by: Sodium Chloride (Sodium Chloride Flush Syringe 10 Ml) 10 ml IV PRN PRN PRN Reason: LINE FLUSH Review of Systems All systems: negative (none) Exam Vital Signs BP 191/89 08/26/18 09:58 - General physical appearance Positive: well developed, well nourished, no distress - Eyes Positive: PERRL, normal occular movement - ENT Positive: normal pinna, normal nares, normal mucosa, no hearing loss, no congestion - Neck Positive: no masses, no bruits, trachea midline, no venous distension - Respiratory Positive: normal expansion, normal respiratory effort, clear to auscultation - Cardiovascular Rhythm: regular Heart Sounds: Present: S1 & S2. Absent: rub, click - Extremities Extremity abnormal: other (There is a 2 cm dry eschar on the plantar aspect of her right mid-foot. There is no associated erythema, drainage or warmth.) - Breasts Breasts: deferred - Abdomen Abdomen: Present: soft, bowel sounds normal. Absent: tender, distended Hernia: none - Genitourinary Female Genitourinary: deferred - Neurologic Neurologic: alert and oriented to time, place and person, motor strength and sensation are grossly intact - Musculoskeletal normal gait, normal posture - Psychiatric Psychiatric: appropriate mood/affect, intact judgment & insight Results - Labs 08/26/18 10:07 08/26/18 10:01 Abnormal lab results 08/27/18 Range/Units 11:43 POC Glucose 222 H (70-105) Assessment and Plan - Patient Problems (1) Type 2 diabetes mellitus with foot ulcer Current Visit: Yes Status: Acute (2) Non-pressure chronic ulcer of other part of right foot with other specified severity Current Visit: Yes Status: Acute Plan to address problem: 1) Can leave ulcer open to air 2) [place] ulcer bid with Betadine 3) Pt can f/u in Wound Clinic.
--- NOTE | 2018-08-28 11:54 | Progress Note ---
Assessment and Plan Patient is seen for evaluation of chest pain. The pain is related more to the cough and probably musculoskeletal in etiology. She probably has bronchitis and possible pneumonitis. She may need a stress test in the future for further cardiac evaluation however will wait until the pulmonary issues improves significantly. This can even be accomplished as an outpatient. - Patient Problems (1) Anemia of chronic disease Current Visit: Yes Status: Acute (2) Cardiomyopathy Current Visit: Yes Status: Acute Qualifiers: Cardiomyopathy type: unspecified Qualified Code(s): I42.9 - Cardiomyopathy, unspecified (3) Chest pain Current Visit: Yes Status: Acute Qualifiers: Chest pain type: unspecified Qualified Code(s): R07.9 - Chest pain, unspecified (4) HTN (hypertension) Current Visit: Yes Status: Acute Qualifiers: Hypertension type: essential hypertension Qualified Code(s): I10 - Essential (primary) hypertension (5) Pneumonia Current Visit: Yes Status: Suspected Subjective Date of service: 08/28/18 Principal diagnosis: esrd Interval history: Patient is still complaining about cough and the requesting breathing treatments. Patient does have some chest pains with cough but no other significant cardiac symptoms. Chest pain is probably musculoskeletal in etiology. Objective Vital Signs Temp Pulse Resp BP BP Pulse Ox 08/28/18 00:06 98.1 F 90 18 166/71 98 08/27/18 22:00 20 08/27/18 21:09 92 H 20 171/80 08/27/18 19:44 98.3 F 90 18 173/77 94 08/27/18 18:00 97.5 F L 78 20 172/96 08/27/18 17:45 87 184/93 08/27/18 17:30 83 166/84 08/27/18 17:15 89 159/79 08/27/18 17:00 78 171/90 08/27/18 16:45 87 184/93 08/27/18 16:30 83 166/84 08/27/18 16:15 89 159/79 08/27/18 16:00 87 171/90 08/27/18 15:45 88 169/87 08/27/18 15:30 87 165/87 08/27/18 15:15 86 164/82 08/27/18 15:00 86 166/87 08/27/18 14:45 86 157/82 08/27/18 14:30 83 148/82 08/27/18 14:15 87 140/79 08/27/18 14:00 98.5 F 87 18 152/86 08/27/18 12:00 94 H - Physical Examination HEENT: Positive: PERRL, Normocephaly, Mucus Membranes Moist Neck: Positive: neck supple, trachea midline Cardiac: Positive: Regular Rate Lungs: Positive: clear to auscultation Neuro: Positive: Grossly Intact Abdomen: Positive: Soft. Negative: Tender Skin: Negative: Rash, Wound Musculoskeletal: No Pain Extremities: Absent: edema - Imaging and Cardiology EKG: report reviewed, image reviewed Echo: report reviewed (03/2018 was TDS, EF 50-55%, abnormal diastolic function, LA mildly dilated, small pericardial effusion. ) - EKG Sinus rhythms and dysrhythmias: sinus rhythm
[2018-08-28] MEDS ORDERED: LEVAQUIN 750MG/150ML 750 MG/150 ML BAG IV ONE (12:00)
[2018-08-28] MEDS: PROVENTIL IH SCH ×3 (12:23→20:17)
[2018-08-28] MEDS: ZOFRAN IV PRN ×2 (12:54→22:30)
--- NOTE | 2018-08-28 13:01 | Progress Note ---
Assessment and Plan Assessment and plan: ESRD. Continue hemodialysis per nephrology. Pleuritic Chest pain. Cardiology believed The pain is related more to the cough and probably musculoskeletal in etiology. Outpatient Lexiscan. Pneumonia. Add Levaquin to her regimen. MRSA bacteremia. Resume outpatient Vancomycin per ID recommendation at last admission: Vancomycin for a total of 6 weeks ending 09/17/18 Hypertension. Continue antihypertensive medications. Diabetes mellitus type 2. Continue Accu-Cheks and sliding scale insulin. Diabetic gastroparesis. Reglan. Diabetic foot ulcer. s/p right TMA with a plantar ulcer on her right foot. Follow-up as an outpatient wound clinic. History Interval history: No new issues overnight. Hospitalist Physical - Constitutional Vitals: Temp Pulse Resp BP Pulse Ox 98.1 F 91 H 20 166/71 98 08/28/18 00:06 08/28/18 12:33 08/28/18 12:33 08/28/18 00:06 08/28/18 00:06 General appearance: Present: no acute distress - EENT Eyes: Present: PERRL, EOM intact ENT: hearing intact, clear oral mucosa, dentition normal - Neck Neck: Present: supple, normal ROM - Respiratory Respiratory effort: normal Respiratory: bilateral: CTA - Cardiovascular Rhythm: regular Heart Sounds: Present: S1 & S2. Absent: gallop, rub - Extremities Extremities: no ischemia, No edema, Full ROM - Abdominal General gastrointestinal: soft, non-tender, non-distended, normal bowel sounds - Integumentary Integumentary: Present: clear, warm, dry - Neurologic Neurologic: CNII-XII intact, moves all extremities Results - Labs CBC & Chem 7: 08/26/18 10:07 08/26/18 10:01 Labs: Laboratory Last Values WBC 4.6 K/mm3 (4.5-11.0) 08/26/18 10:07 RBC 3.32 M/mm3 (3.65-5.03) L 08/26/18 10:07 Hgb 9.1 gm/dl (10.1-14.3) L 08/26/18 10:07 Hct 28.4 % (30.3-42.9) L 08/26/18 10:07 MCV 86 fl (79-97) 08/26/18 10:07 MCH 28 pg (28-32) 08/26/18 10:07 MCHC 32 % (30-34) 08/26/18 10:07 RDW 20.8 % (13.2-15.2) H 08/26/18 10:07 Plt Count 158 K/mm3 (140-440) 08/26/18 10:07 Lymph % (Auto) 9.0 % (13.4-35.0) L 08/26/18 10:07 [place] % (Auto) 11.7 % (0.0-7.3) H 08/26/18 10:07 Eos % (Auto) 0.0 % (0.0-4.3) 08/26/18 10:07 Baso % (Auto) 0.9 % (0.0-1.8) 08/26/18 10:07 Lymph # 0.4 K/mm3 (1.2-5.4) L 08/26/18 10:07 [place] # 0.5 K/mm3 (0.0-0.8) 08/26/18 10:07 Eos # 0.0 K/mm3 (0.0-0.4) 08/26/18 10:07 Baso # 0.0 K/mm3 (0.0-0.1) 08/26/18 10:07 Seg Neutrophils % 78.4 % (40.0-70.0) H 08/26/18 10:07 Seg Neutrophils # 3.6 K/mm3 (1.8-7.7) 08/26/18 10:07 Sodium 138 mmol/L (137-145) 08/26/18 10:01 Potassium 4.3 mmol/L (3.6-5.0) 08/26/18 10:01 Chloride 94.5 mmol/L (98-107) L 08/26/18 10:01 Carbon Dioxide 25 mmol/L (22-30) 08/26/18 10:01 Anion Gap 23 mmol/L 08/26/18 10:01 BUN 20 mg/dL (7-17) H 08/26/18 10:01 Creatinine 6.5 mg/dL (0.7-1.2) H 08/26/18 10:01 Estimated GFR 7 ml/min 08/26/18 10:01 BUN/Creatinine Ratio 3 % 08/26/18 10:01 Glucose 175 mg/dL (65-100) H 08/26/18 10:01 POC Glucose 88 (70-105) 08/28/18 12:32 Calcium 8.3 mg/dL (8.4-10.2) L 08/26/18 10:01 Troponin T 0.433 ng/mL (0.00-0.029) H* 08/26/18 16:51 NT-Pro-B Natriuret Pep 97343 pg/mL (0-450) H 08/26/18 12:36 Triglycerides 96 mg/dL (2-149) 08/26/18 10:01 Cholesterol 116 mg/dL (50-199) 08/26/18 10:01 LDL Cholesterol Direct 60 mg/dL (50-130) 08/26/18 10:01 HDL Cholesterol 42 mg/dL (40-59) 08/26/18 10:01 Cholesterol/HDL Ratio 2.76 % 08/26/18 10:01
[2018-08-28] MEDS ORDERED: PROVENTIL IH SCH (14:00)
[2018-08-29] MEDS ORDERED: BENADRYL PO ONE (00:25)
[2018-08-29 07:02] LABS: Basophils % (Auto) 0.4 % (0.0-1.8); Eosinophils % (Auto) 0.2 % (0.0-4.3); Hematocrit 27.6 % (30.3-42.9); Hemoglobin 8.6 gm/dl (10.1-14.3); Lymphocytes # (Auto) 0.9 K/mm3 (1.2-5.4); Lymphocytes % (Auto) 25.4 % (13.4-35.0); Mean Corpuscular HGB Conc 31 % (30-34); Mean Corpuscular Hemoglobin 27 pg (28-32); Mean Corpuscular Volume 87 fl (79-97); Monocytes # (Auto) 0.6 K/mm3 (0.0-0.8); Monocytes % (Auto) 15.8 % (0.0-7.3); Platelet Count 123 K/mm3 (140-440); Red Blood Count 3.18 M/mm3 (3.65-5.03)
[2018-08-29 07:08] LABS: Red Cell Distribution Width 20.6 % (13.2-15.2)
[2018-08-29 07:22] LABS: Calcium 6.3 mg/dL (8.4-10.2)
[2018-08-29] MEDS: PROVENTIL IH SCH ×4 (07:42→21:15)
[2018-08-29] MEDS ORDERED: LEXISCAN IV ONE ×2 (08:13→10:04)
[2018-08-29] MEDS: HumaLOG SUB-Q SCH ×3 (08:37→17:50)
[2018-08-29] MEDS: ZOFRAN IV PRN (10:41)
[2018-08-29] MEDS ORDERED: ZOFRAN ONE (10:43)
[2018-08-29] MEDS: SODIUM CHLORIDE FLUSH SYRINGE 10 ML IV SCH ×2 (12:07→22:58)
[2018-08-29] MEDS: APRESOLINE PO SCH ×3 (12:07→20:48)
[2018-08-29] MEDS: ZESTRIL PO SCH ×2 (12:07→17:12)
[2018-08-29] MEDS: NORVASC PO SCH (12:07)
[2018-08-29] MEDS: PEPCID PO SCH ×2 (12:07→22:57)
--- NOTE | 2018-08-29 12:14 | Progress Note ---
Assessment and Plan End-stage renal disease on hemodialysis respiratory failure nstemi type 2 htn chol dm nstemi type 2 acute diastolic dsyfunction abnl bnp Anemia secondary renal failure rec: Continue medical management needs better BP control at beta kylie patient is contracted hemodialysis Subjective Date of service: 08/29/18 Principal diagnosis: esrd Interval history: Patient has nausea and vomiting Objective Vital Signs Temp Pulse Pulse Resp Resp BP BP 08/29/18 10:43 100 H 201/91 08/29/18 10:42 103 H 198/101 08/29/18 10:41 108 H 149/86 08/29/18 10:40 109 H 155/66 08/29/18 10:39 105 H 158/78 08/29/18 10:38 111 H 167/80 08/29/18 10:30 90 161/82 08/29/18 09:00 94 H 08/29/18 07:59 92 H 18 155/62 08/29/18 07:58 98.3 F 93 H 18 155/62 08/29/18 07:52 90 20 08/29/18 07:42 91 H 20 08/29/18 04:13 98.0 F 89 18 143/61 08/29/18 00:04 98.0 F 88 20 133/55 08/28/18 22:00 08/28/18 20:26 95 H 16 08/28/18 20:22 08/28/18 20:18 94 H 20 08/28/18 20:08 98.0 F 96 H 18 150/68 08/28/18 17:17 95 H 20 08/28/18 17:07 96 H 20 08/28/18 16:50 98.5 F 96 H 16 143/65 08/28/18 15:00 08/28/18 14:58 98.7 F 94 H 14 126/58 08/28/18 12:33 91 H 20 08/28/18 12:23 93 H 20 Pulse Ox 08/29/18 10:43 08/29/18 10:42 08/29/18 10:41 08/29/18 10:40 08/29/18 10:39 08/29/18 10:38 08/29/18 10:30 08/29/18 09:00 08/29/18 07:59 95 08/29/18 07:58 96 08/29/18 07:52 08/29/18 07:42 98 08/29/18 04:13 92 08/29/18 00:04 92 08/28/18 22:00 98 08/28/18 20:26 08/28/18 20:22 94 08/28/18 20:18 08/28/18 20:08 92 08/28/18 17:17 08/28/18 17:07 08/28/18 16:50 90 08/28/18 15:00 96 08/28/18 14:58 90 08/28/18 12:33 08/28/18 12:23 - Physical Examination General: No Apparent Distress HEENT: Positive: PERRL, Normocephaly, Mucus Membranes Moist Neck: Positive: neck supple, trachea midline Cardiac: Positive: Reg Rate and Rhythm Lungs: Positive: clear to auscultation Neuro: Positive: Grossly Intact Abdomen: Positive: Soft. Negative: Tender Skin: Negative: Rash, Wound Musculoskeletal: No Pain Extremities: Absent: edema - Labs and Meds CBC 08/29/18 Range/Units 05:04 WBC 3.6 L (4.5-11.0) K/mm3 RBC 3.18 L (3.65-5.03) M/mm3 Hgb 8.6 L (10.1-14.3) gm/dl Hct 27.6 L (30.3-42.9) % Plt Count 123 L (140-440) K/mm3 Lymph # 0.9 L (1.2-5.4) K/mm3 Love # 0.6 (0.0-0.8) K/mm3 Eos # 0.0 (0.0-0.4) K/mm3 Baso # 0.0 (0.0-0.1) K/mm3 Comprehensive Metabolic Panel 08/29/18 Range/Units 05:04 Sodium 138 (137-145) mmol/L Potassium 3.7 (3.6-5.0) mmol/L Chloride 95.3 L (98-107) mmol/L Carbon Dioxide 25 (22-30) mmol/L BUN 33 H (7-17) mg/dL Creatinine 6.8 H (0.7-1.2) mg/dL Glucose 77 (65-100) mg/dL Calcium 6.3 L D (8.4-10.2) mg/dL - Imaging and Cardiology EKG: report reviewed, image reviewed Pharmacologic stress test: report reviewed (tds no significant ischemia noted EF 44%) Echo: report reviewed (03/2018 was TDS, EF 50-55%, abnormal diastolic function, LA mildly dilated, small pericardial effusion. ) - Telemetry EKG Rhythm: Sinus Rhythm (6 and 8 beats of nonsustained V. tach) - EKG Sinus rhythms and dysrhythmias: sinus rhythm
--- NOTE | 2018-08-29 12:37 | Progress Note ---
Assessment and Plan Impression * End-stage renal disease on maintenance hemodialysis * Chest pain * PNA--cta suggestive of PNA * Hx of MRSA bacteremia --Blood cx: MRSA (Aug 01) --Blood cx: MRSA, coag neg staph (Aug 03) --Blood cx: NGTD (Aug 06) * Hypertension * Type II DM * Diabetic gastroparesis Recommendations * Continue HD - TTS schedule * UF as tolerated * iv levaquin for PNA--?CAP * Cardiology input noted * Resume outpatient Vancomycin per ID recommendation at last admission: Vancomycin for a total of 6 weeks ending 09/17/18 * Epogen TIW prn * Adjust diet and meds for ESRD state Subjective Date of service: 08/29/18 Principal diagnosis: esrd Interval history: resting in bed today Objective - Exam Narrative Exam: General appearance: well-developed EENT: ATNC Respiratory: Clear to Ascultation Heart: regular, S1S2 Gastrointestinal: Present: normal. Absent: tenderness, distended Integumentary: warm and dry Musculoskeletal: Present: other (no edema) Psychiatric: cooperative - Vital Signs Vital signs: Vital Signs - 12hr 08/29/18 08/29/18 08/29/18 04:13 07:42 07:52 Temperature 98.0 F Pulse Rate 89 Pulse Rate [ 91 H 90 Anterior Bilateral Throughout] Respiratory 18 Rate Respiratory 20 20 Rate [Anterior Bilateral Throughout] Blood Pressure 143/61 Blood Pressure [Right] O2 Sat by Pulse 92 98 Oximetry 08/29/18 08/29/18 08/29/18 07:58 07:59 09:00 Temperature 98.3 F Pulse Rate 93 H 92 H 94 H Pulse Rate [ Anterior Bilateral Throughout] Respiratory 18 18 Rate Respiratory Rate [Anterior Bilateral Throughout] Blood Pressure 155/62 Blood Pressure 155/62 [Right] O2 Sat by Pulse 96 95 Oximetry 08/29/18 08/29/18 08/29/18 10:30 10:38 10:39 Temperature Pulse Rate 90 111 H 105 H Pulse Rate [ Anterior Bilateral Throughout] Respiratory Rate Respiratory Rate [Anterior Bilateral Throughout] Blood Pressure 161/82 167/80 158/78 Blood Pressure [Right] O2 Sat by Pulse Oximetry 08/29/18 08/29/18 08/29/18 10:40 10:41 10:42 Temperature Pulse Rate 109 H 108 H 103 H Pulse Rate [ Anterior Bilateral Throughout] Respiratory Rate Respiratory Rate [Anterior Bilateral Throughout] Blood Pressure 155/66 149/86 198/101 Blood Pressure [Right] O2 Sat by Pulse Oximetry 08/29/18 10:43 Temperature Pulse Rate 100 H Pulse Rate [ Anterior Bilateral Throughout] Respiratory Rate Respiratory Rate [Anterior Bilateral Throughout] Blood Pressure 201/91 Blood Pressure [Right] O2 Sat by Pulse Oximetry - Lab 08/29/18 05:04 08/29/18 05:04 Most recent lab results Calcium 6.3 mg/dL (8.4-10.2) L D 08/29/18 05:04 Medications & Allergies - Medications Allergies/Adverse Reactions: Allergies amoxicillin Allergy (Verified 07/03/18 20:57) Unknown Penicillins Allergy (Verified 05/19/18 13:02) Unknown tramadol Allergy (Verified 07/03/18 20:57) Unknown IV contrast Allergy (Uncoded 01/15/17 17:55) Rash Home Medications: Home Medications Medication Instructions Recorded Confirmed Last Taken Type ALBUTEROL Inhaler (OR & NICU) 2 puff IH Q6H PRN 05/19/18 08/26/18 Unknown History [ProAir HFA Inhaler] Lispro Insulin [Humalog] 15 unit SUB-Q TID 07/26/18 08/26/18 07/19/18 History ALBUTEROL NEB's [Proventil 0.083% 2.5 mg IH QID PRN #30 nebu 08/12/18 08/26/18 Unknown Rx NEBS] AtorvaSTATin [Lipitor] 20 mg PO DAILY #30 tablet 08/12/18 08/26/18 Unknown Rx Insulin Glargine [Lantus VIAL] 25 units SUB-Q QHS #1 vial 08/12/18 08/26/18 Unknown Rx Lisinopril [Zestril] 20 mg PO QDAY #30 tablet 08/12/18 08/26/18 Unknown Rx amLODIPine [Norvasc] 10 mg PO DAILY #30 tablet 08/12/18 08/26/18 Unknown Rx cloNIDine-TTS PATCH [Catapres-Tts 0.3 mg TD QWEEK #4 patch 08/12/18 08/26/18 Unknown Rx Patch] hydrALAZINE [Apresoline TAB] 100 mg PO TID #90 tab 08/12/18 08/26/18 Unknown Rx Fluticasone [Flonase] 1 spray NS QDAY PRN 08/26/18 08/26/18 Unknown History Ibuprofen [Motrin] 600 mg PO Q8H PRN 08/26/18 08/26/18 Unknown History Active Medications: Generic Name Dose Route Start Last Admin Trade Name Freq PRN Reason Stop Dose Admin Acetaminophen 650 mg 08/26/18 13:22 Tylenol PO Q4H PRN Pain MILD(1-3)/Fever >100.5/[place] Albuterol 2.5 mg 08/28/18 12:00 08/29/18 12:30 Proventil IH Not Given QIDRT [facility] Amlodipine Besylate 10 mg 08/27/18 10:00 08/29/18 12:07 Norvasc PO Not Given DAILY [facility] Atorvastatin Calcium 20 mg 08/27/18 22:00 08/28/18 22:14 Lipitor PO 20 mg HS [facility] Administration Clonidine HCl 0.3 mg 08/26/18 15:00 08/26/18 22:33 Catapres-Tts Patch TD Not Given We [facility] Famotidine 10 mg 08/27/18 22:00 08/29/18 12:07 Pepcid PO Not Given BID [facility] Fluticasone Propionate 50 mcg 08/26/18 15:23 Flonase NS QDAY PRN Congestion Hydralazine HCl 100 mg 08/26/18 14:00 08/29/18 12:07 Apresoline PO Not Given TID [facility] Sodium Chloride 100 mls @ 999 mls/hr 08/27/18 12:45 Nacl 0.9% IV LUIS PRN Hypotension Levofloxacin/Dextrose 500 mg in 100 mls @ 100 mls/hr 08/30/18 10:00 Levaquin 500mg/100ml IV Q48HR [facility] Vancomycin HCl 1 gm in 250 mls @ 166.667 mls/hr 08/29/18 16:00 Vancomycin/Ns 1 Gm/250 Ml IV 08/29/18 17:29 ONCE ONE Insulin Glargine 25 units 08/26/18 22:00 08/28/18 22:14 Lantus SUB-Q 15 units QHS [facility] Administration Insulin Human Lispro 15 unit 08/26/18 17:00 08/29/18 12:07 Humalog SUB-Q Not Given TIDWM [facility] Lisinopril 20 mg 08/27/18 10:00 08/29/18 12:07 Zestril PO Not Given QDAY [facility] Metoprolol Tartrate 50 mg 08/29/18 13:00 Lopressor PO BID [facility] Ondansetron HCl 4 mg 08/26/18 13:22 08/29/18 10:41 Zofran IV 4 mg Q8H PRN Administration Nausea And Vomiting Sodium Chloride 10 ml 08/26/18 22:00 08/29/18 12:07 Sodium Chloride Flush Syringe 10 Ml IV Not Given BID [facility]HA Sodium Chloride 10 ml 08/26/18 13:22 Sodium Chloride Flush Syringe 10 Ml IV PRN PRN LINE FLUSH
[2018-08-29] MEDS ORDERED: ZESTRIL PO SCH (13:00)
--- NOTE | 2018-08-29 13:00 | Progress Note ---
Assessment and Plan Assessment and plan: ESRD. Continue hemodialysis per nephrology. Pleuritic Chest pain. Cardiology believed The pain is related more to the cough and probably musculoskeletal in etiology. Outpatient Lexiscan. Pneumonia. Add Levaquin to her regimen. MRSA bacteremia. Resume outpatient Vancomycin per ID recommendation at last admission: Vancomycin for a total of 6 weeks ending 09/17/18 Hypertension. Increase Zestril and cardiology added metoprolol Diabetes mellitus type 2. Continue Accu-Cheks and sliding scale insulin. Diabetic gastroparesis. Reglan. Diabetic foot ulcer. s/p right TMA with a plantar ulcer on her right foot. Follow-up as an outpatient wound clinic. History Interval history: No new issues overnight. Hospitalist Physical - Constitutional Vitals: Temp Pulse Resp BP Pulse Ox 98.3 F 100 H 18 201/91 95 08/29/18 07:58 08/29/18 10:43 08/29/18 07:59 08/29/18 10:43 08/29/18 07:59 General appearance: Present: no acute distress - EENT Eyes: Present: PERRL, EOM intact ENT: hearing intact, clear oral mucosa, dentition normal - Neck Neck: Present: supple, normal ROM - Respiratory Respiratory effort: normal Respiratory: bilateral: CTA - Cardiovascular Rhythm: regular Heart Sounds: Present: S1 & S2. Absent: gallop, rub - Extremities Extremities: no ischemia, No edema, Full ROM - Abdominal General gastrointestinal: soft, non-tender, non-distended, normal bowel sounds - Integumentary Integumentary: Present: clear, warm, dry - Neurologic Neurologic: CNII-XII intact, moves all extremities Results - Labs CBC & Chem 7: 08/29/18 05:04 08/29/18 05:04 Labs: Laboratory Last Values WBC 3.6 K/mm3 (4.5-11.0) L 08/29/18 05:04 RBC 3.18 M/mm3 (3.65-5.03) L 08/29/18 05:04 Hgb 8.6 gm/dl (10.1-14.3) L 08/29/18 05:04 Hct 27.6 % (30.3-42.9) L 08/29/18 05:04 MCV 87 fl (79-97) 08/29/18 05:04 MCH 27 pg (28-32) L 08/29/18 05:04 MCHC 31 % (30-34) 08/29/18 05:04 RDW 20.6 % (13.2-15.2) H 08/29/18 05:04 Plt Count 123 K/mm3 (140-440) L 08/29/18 05:04 Lymph % (Auto) 25.4 % (13.4-35.0) 08/29/18 05:04 [place] % (Auto) 15.8 % (0.0-7.3) H 08/29/18 05:04 Eos % (Auto) 0.2 % (0.0-4.3) 08/29/18 05:04 Baso % (Auto) 0.4 % (0.0-1.8) 08/29/18 05:04 Lymph # 0.9 K/mm3 (1.2-5.4) L 08/29/18 05:04 [place] # 0.6 K/mm3 (0.0-0.8) 08/29/18 05:04 Eos # 0.0 K/mm3 (0.0-0.4) 08/29/18 05:04 Baso # 0.0 K/mm3 (0.0-0.1) 08/29/18 05:04 Seg Neutrophils % 58.2 % (40.0-70.0) 08/29/18 05:04 Seg Neutrophils # 2.1 K/mm3 (1.8-7.7) 08/29/18 05:04 Sodium 138 mmol/L (137-145) 08/29/18 05:04 Potassium 3.7 mmol/L (3.6-5.0) 08/29/18 05:04 Chloride 95.3 mmol/L (98-107) L 08/29/18 05:04 Carbon Dioxide 25 mmol/L (22-30) 08/29/18 05:04 Anion Gap 21 mmol/L 08/29/18 05:04 BUN 33 mg/dL (7-17) H 08/29/18 05:04 Creatinine 6.8 mg/dL (0.7-1.2) H 08/29/18 05:04 Estimated GFR 6 ml/min 08/29/18 05:04 BUN/Creatinine Ratio 5 % 08/29/18 05:04 Glucose 77 mg/dL (65-100) 08/29/18 05:04 POC Glucose 90 (70-105) 08/29/18 06:29 Calcium 6.3 mg/dL (8.4-10.2) L D 08/29/18 05:04 Troponin T 0.433 ng/mL (0.00-0.029) H* 08/26/18 16:51 NT-Pro-B Natriuret Pep 53921 pg/mL (0-450) H 08/26/18 12:36 Triglycerides 96 mg/dL (2-149) 08/26/18 10:01 Cholesterol 116 mg/dL (50-199) 08/26/18 10:01 LDL Cholesterol Direct 60 mg/dL (50-130) 08/26/18 10:01 HDL Cholesterol 42 mg/dL (40-59) 08/26/18 10:01 Cholesterol/HDL Ratio 2.76 % 08/26/18 10:01 Random Vancomycin 14.4 ug/mL (0-40.0) 08/29/18 05:04
[2018-08-29] MEDS ORDERED: NACL 0.9 (PRIMING MACHINE ONLY DIALYSIS) MC ONE (13:38)
--- NOTE | 2018-08-29 14:34 | Treadmill Report ---
NUCLEAR PERFUSION STUDY REASON FOR STUDY: Nonsustained ventricular tachycardia. IMAGING PROTOCOL: The patient received 10 mCi of Technetium 99m Tetrofosmin for resting image and 28 mCi of Technetium 99m Tetrofosmin for stress imaging. The imaging for the whole procedure was completed 30-90 minutes following the initial injection of Technetium 99m Tetrofosmin. The SPECT imaging in the 180 degree arc was performed in the right anterior oblique projection. Computerized reconstruction of the images was performed for analysis. IMAGING RESULTS: Technically limited study due to breast attenuation and increase gut uptake on stress, but normal distribution of radionuclide in the anterior, inferior, septal, and apical regions. There is a mild diffuse decrease seen on the stress in the anterior region compared to rest. Gated SPECT, EF 44% with mild global hypokinesis. The patient infused Lexiscan with no EKG changes. SUMMARY: 1. Negative Lexiscan EKG. 2. Technically limited study, no obvious significant ischemia noted, but mild diffuse decrease in the anterior region from the breast attenuation and increase gut uptake on stress. Gated SPECT, EF 44%. We will clinically correlate. JOB# [id number] RHONDA/OBIE ROSS
[2018-08-29] MEDS ORDERED: VANCOMYCIN/NS 1 GM/250 ML 1 GM/250 ML BAG IV ONE (16:00)
--- NOTE | 2018-08-29 16:00 | Progress Note ---
Assessment and Plan - Patient Problems (1) Type 2 diabetes mellitus with foot ulcer Current Visit: Yes Status: Acute Plan to address problem: 1) MRI, right foot to r/o osteomyelitis (2) Non-pressure chronic ulcer of other part of right foot with other specified severity Current Visit: Yes Status: Acute Subjective Date of service: 08/29/18 Patient Reports: Positive: no new complaints Objective Vital Signs - 12hr 08/29/18 08/29/18 08/29/18 04:13 07:42 07:52 Temperature 98.0 F Pulse Rate 89 Pulse Rate [ 91 H 90 Anterior Bilateral Throughout] Respiratory 18 Rate Respiratory 20 20 Rate [Anterior Bilateral Throughout] Blood Pressure 143/61 Blood Pressure [Right] O2 Sat by Pulse 92 98 Oximetry 08/29/18 08/29/18 08/29/18 07:58 07:59 09:00 Temperature 98.3 F Pulse Rate 93 H 92 H 94 H Pulse Rate [ Anterior Bilateral Throughout] Respiratory 18 18 Rate Respiratory Rate [Anterior Bilateral Throughout] Blood Pressure 155/62 Blood Pressure 155/62 [Right] O2 Sat by Pulse 96 95 Oximetry 08/29/18 08/29/18 08/29/18 10:30 10:38 10:39 Temperature Pulse Rate 90 111 H 105 H Pulse Rate [ Anterior Bilateral Throughout] Respiratory Rate Respiratory Rate [Anterior Bilateral Throughout] Blood Pressure 161/82 167/80 158/78 Blood Pressure [Right] O2 Sat by Pulse Oximetry 08/29/18 08/29/18 08/29/18 10:40 10:41 10:42 Temperature Pulse Rate 109 H 108 H 103 H Pulse Rate [ Anterior Bilateral Throughout] Respiratory Rate Respiratory Rate [Anterior Bilateral Throughout] Blood Pressure 155/66 149/86 198/101 Blood Pressure [Right] O2 Sat by Pulse Oximetry 08/29/18 08/29/18 08/29/18 10:43 12:15 12:30 Temperature 98.4 F Pulse Rate 100 H 93 H 94 H Pulse Rate [ Anterior Bilateral Throughout] Respiratory 20 Rate Respiratory Rate [Anterior Bilateral Throughout] Blood Pressure 201/91 161/76 163/59 Blood Pressure [Right] O2 Sat by Pulse Oximetry 08/29/18 08/29/18 08/29/18 12:45 13:00 13:15 Temperature Pulse Rate 92 H 89 89 Pulse Rate [ Anterior Bilateral Throughout] Respiratory Rate Respiratory Rate [Anterior Bilateral Throughout] Blood Pressure 154/71 137/69 141/74 Blood Pressure [Right] O2 Sat by Pulse Oximetry 08/29/18 08/29/18 08/29/18 13:30 13:45 14:00 Temperature Pulse Rate 88 93 H 91 H Pulse Rate [ Anterior Bilateral Throughout] Respiratory Rate Respiratory Rate [Anterior Bilateral Throughout] Blood Pressure 149/71 168/75 182/84 Blood Pressure [Right] O2 Sat by Pulse Oximetry 08/29/18 08/29/18 14:15 14:30 Temperature Pulse Rate 89 91 H Pulse Rate [ Anterior Bilateral Throughout] Respiratory Rate Respiratory Rate [Anterior Bilateral Throughout] Blood Pressure 170/72 176/83 Blood Pressure [Right] O2 Sat by Pulse Oximetry - Labs 08/29/18 05:04 08/29/18 05:04 Diabetes panel 08/29/18 Range/Units 05:04 Sodium 138 (137-145) mmol/L Potassium 3.7 (3.6-5.0) mmol/L Chloride 95.3 L (98-107) mmol/L Carbon Dioxide 25 (22-30) mmol/L BUN 33 H (7-17) mg/dL Creatinine 6.8 H (0.7-1.2) mg/dL Glucose 77 (65-100) mg/dL Calcium 6.3 L D (8.4-10.2) mg/dL Calcium panel 08/29/18 Range/Units 05:04 Calcium 6.3 L D (8.4-10.2) mg/dL Pituitary panel 08/29/18 Range/Units 05:04 Sodium 138 (137-145) mmol/L Potassium 3.7 (3.6-5.0) mmol/L Chloride 95.3 L (98-107) mmol/L Carbon Dioxide 25 (22-30) mmol/L BUN 33 H (7-17) mg/dL Creatinine 6.8 H (0.7-1.2) mg/dL Glucose 77 (65-100) mg/dL Calcium 6.3 L D (8.4-10.2) mg/dL Adrenal panel 08/29/18 Range/Units 05:04 Sodium 138 (137-145) mmol/L Potassium 3.7 (3.6-5.0) mmol/L Chloride 95.3 L (98-107) mmol/L Carbon Dioxide 25 (22-30) mmol/L BUN 33 H (7-17) mg/dL Creatinine 6.8 H (0.7-1.2) mg/dL Glucose 77 (65-100) mg/dL Calcium 6.3 L D (8.4-10.2) mg/dL - Imaging Additional Studies: Arterial dopplers on 03/31/[address] of [facility] on 04/01/18 - could not r/o osteo of right foot. MRI recommended.
[2018-08-29] MEDS: LOPRESSOR PO SCH ×2 (17:11→22:57)
[2018-08-29] MEDS: XANAX PO PRN (17:14)
[2018-08-29] MEDS ORDERED: BENADRYL IV PRN (17:22)
[2018-08-29] MEDS: LANTUS SUB-Q SCH (22:58)
[2018-08-29] MEDS: AMBIEN PO PRN (23:04)
[2018-08-30] MEDS ORDERED: D50W (25GM) Syringe IV PRN ×2 (05:32→06:00)
[2018-08-30] MEDS: PROVENTIL IH SCH ×4 (07:21→21:00)
[2018-08-30] MEDS ORDERED: LEVAQUIN 500MG/100ML 500 MG/100 ML BAG IV SCH (10:00)
--- NOTE | 2018-08-30 10:01 | Progress Note ---
Assessment and Plan End-stage renal disease on hemodialysis respiratory failure nstemi type 2 htn chol dm nstemi type 2 acute diastolic dsyfunction abnl bnp Anemia secondary renal failure non compliance rec: Continue medical management needs better BP control, treat medically for abnormal troponin stress test was technically limited but no significant ische don noted continue current medical management Subjective Date of service: 08/30/18 Principal diagnosis: esrd Interval history: pt lying in bed no nasuea or chest pain Objective Vital Signs Temp Pulse Pulse Resp Resp BP BP 08/30/18 08:32 97.7 F 80 20 164/62 08/30/18 07:31 71 20 08/30/18 07:21 70 18 08/30/18 05:00 65 08/30/18 04:16 98.0 F 74 18 157/66 08/29/18 23:42 98.0 F 88 18 172/68 08/29/18 22:57 90 08/29/18 21:24 85 20 08/29/18 21:23 08/29/18 21:15 82 22 08/29/18 19:43 98.9 F 79 20 180/81 08/29/18 17:37 98.5 F 87 16 165/70 08/29/18 17:11 93 H 196/86 08/29/18 16:49 93 H 196/86 08/29/18 16:47 98.1 F 93 H 18 196/86 08/29/18 15:45 87 159/76 08/29/18 15:30 87 168/73 08/29/18 15:15 83 170/69 08/29/18 15:00 89 163/73 08/29/18 14:45 90 177/83 08/29/18 14:30 91 H 176/83 08/29/18 14:15 89 170/72 08/29/18 14:00 91 H 182/84 08/29/18 13:45 93 H 168/75 08/29/18 13:30 88 149/71 08/29/18 13:15 89 141/74 08/29/18 13:00 89 137/69 08/29/18 12:45 92 H 154/71 08/29/18 12:30 94 H 163/59 08/29/18 12:15 98.4 F 93 H 20 161/76 08/29/18 10:43 100 H 201/91 08/29/18 10:42 103 H 198/101 08/29/18 10:41 108 H 149/86 08/29/18 10:40 109 H 155/66 08/29/18 10:39 105 H 158/78 08/29/18 10:38 111 H 167/80 08/29/18 10:30 90 161/82 Pulse Ox 08/30/18 08:32 98 08/30/18 07:31 08/30/18 07:21 98 08/30/18 05:00 08/30/18 04:16 92 08/29/18 23:42 96 08/29/18 22:57 08/29/18 21:24 08/29/18 21:23 95 08/29/18 21:15 08/29/18 19:43 95 08/29/18 17:37 08/29/18 17:11 08/29/18 16:49 95 08/29/18 16:47 95 08/29/18 15:45 08/29/18 15:30 08/29/18 15:15 08/29/18 15:00 08/29/18 14:45 08/29/18 14:30 08/29/18 14:15 08/29/18 14:00 08/29/18 13:45 08/29/18 13:30 08/29/18 13:15 08/29/18 13:00 08/29/18 12:45 08/29/18 12:30 08/29/18 12:15 08/29/18 10:43 08/29/18 10:42 08/29/18 10:41 08/29/18 10:40 08/29/18 10:39 08/29/18 10:38 08/29/18 10:30 - Physical Examination General: No Apparent Distress HEENT: Positive: PERRL, Normocephaly, Mucus Membranes Moist Neck: Positive: neck supple, trachea midline Cardiac: Positive: Reg Rate and Rhythm Lungs: Positive: clear to auscultation Neuro: Positive: Grossly Intact Abdomen: Positive: Soft. Negative: Tender Skin: Negative: Rash, Wound Musculoskeletal: No Pain Extremities: Absent: edema - Labs and Meds Comprehensive Metabolic Panel 08/30/18 Range/Units 07:10 Glucose 77 (65-100) mg/dL - Imaging and Cardiology EKG: report reviewed, image reviewed Pharmacologic stress test: report reviewed (TDS mid anterior defect possible artifact) Echo: report reviewed (03/2018 was TDS, EF 50-55%, abnormal diastolic function, LA mildly dilated, small pericardial effusion. ) - Telemetry EKG Rhythm: Sinus Rhythm - EKG Sinus rhythms and dysrhythmias: sinus rhythm
[2018-08-30] MEDS: NORVASC PO SCH (10:08)
[2018-08-30] MEDS: LOPRESSOR PO SCH ×2 (10:08→21:34)
[2018-08-30] MEDS: ZESTRIL PO SCH (10:08)
[2018-08-30] MEDS: PEPCID PO SCH ×2 (10:08→21:31)
[2018-08-30] MEDS: SODIUM CHLORIDE FLUSH SYRINGE 10 ML IV SCH ×2 (10:09→21:36)
[2018-08-30] MEDS: APRESOLINE PO SCH ×3 (10:09→21:33)
--- NOTE | 2018-08-30 11:24 | Progress Note ---
Assessment and Plan Assessment and plan: ESRD. Continue hemodialysis per nephrology. Pleuritic Chest pain. Cardiology believed The pain is related more to the cough and probably musculoskeletal in etiology. Outpatient Lexiscan. Pneumonia. Add Levaquin to her regimen. MRSA bacteremia. Resume outpatient Vancomycin per ID recommendation at last admission: Vancomycin for a total of 6 weeks ending 09/17/18 Hypertension. Increased Zestril and cardiology added metoprolol. Cont. Norvasc 10 mg daily Diabetes mellitus type 2. Continue Accu-Cheks and sliding scale insulin. Diabetic gastroparesis. Reglan. Diabetic foot ulcer. s/p right TMA with a plantar ulcer on her right foot. Follow-up as an outpatient wound clinic. History Interval history: No new issues overnight. Hospitalist Physical - Constitutional Vitals: Temp Pulse Resp BP Pulse Ox 97.7 F 80 20 164/62 98 08/30/18 08:32 08/30/18 08:32 08/30/18 08:32 08/30/18 08:32 08/30/18 08:32 General appearance: Present: no acute distress - EENT Eyes: Present: PERRL, EOM intact ENT: hearing intact, clear oral mucosa, dentition normal - Neck Neck: Present: supple, normal ROM - Respiratory Respiratory effort: normal Respiratory: bilateral: CTA - Cardiovascular Rhythm: regular Heart Sounds: Present: S1 & S2. Absent: gallop, rub - Extremities Extremities: no ischemia, No edema, Full ROM - Abdominal General gastrointestinal: soft, non-tender, non-distended, normal bowel sounds - Integumentary Integumentary: Present: clear, warm, dry - Neurologic Neurologic: CNII-XII intact, moves all extremities Results - Labs CBC & Chem 7: 08/29/18 05:04 08/30/18 07:10 Labs: Laboratory Last Values WBC 3.6 K/mm3 (4.5-11.0) L 08/29/18 05:04 RBC 3.18 M/mm3 (3.65-5.03) L 08/29/18 05:04 Hgb 8.6 gm/dl (10.1-14.3) L 08/29/18 05:04 Hct 27.6 % (30.3-42.9) L 08/29/18 05:04 MCV 87 fl (79-97) 08/29/18 05:04 MCH 27 pg (28-32) L 08/29/18 05:04 MCHC 31 % (30-34) 08/29/18 05:04 RDW 20.6 % (13.2-15.2) H 08/29/18 05:04 Plt Count 123 K/mm3 (140-440) L 08/29/18 05:04 Lymph % (Auto) 25.4 % (13.4-35.0) 08/29/18 05:04 [place] % (Auto) 15.8 % (0.0-7.3) H 08/29/18 05:04 Eos % (Auto) 0.2 % (0.0-4.3) 08/29/18 05:04 Baso % (Auto) 0.4 % (0.0-1.8) 08/29/18 05:04 Lymph # 0.9 K/mm3 (1.2-5.4) L 08/29/18 05:04 [place] # 0.6 K/mm3 (0.0-0.8) 08/29/18 05:04 Eos # 0.0 K/mm3 (0.0-0.4) 08/29/18 05:04 Baso # 0.0 K/mm3 (0.0-0.1) 08/29/18 05:04 Seg Neutrophils % 58.2 % (40.0-70.0) 08/29/18 05:04 Seg Neutrophils # 2.1 K/mm3 (1.8-7.7) 08/29/18 05:04 Sodium 138 mmol/L (137-145) 08/29/18 05:04 Potassium 3.7 mmol/L (3.6-5.0) 08/29/18 05:04 Chloride 95.3 mmol/L (98-107) L 08/29/18 05:04 Carbon Dioxide 25 mmol/L (22-30) 08/29/18 05:04 Anion Gap 21 mmol/L 08/29/18 05:04 BUN 33 mg/dL (7-17) H 08/29/18 05:04 Creatinine 6.8 mg/dL (0.7-1.2) H 08/29/18 05:04 Estimated GFR 6 ml/min 08/29/18 05:04 BUN/Creatinine Ratio 5 % 08/29/18 05:04 Glucose 77 mg/dL (65-100) 08/30/18 07:10 POC Glucose 94 (70-105) 08/30/18 06:38 Calcium 6.3 mg/dL (8.4-10.2) L D 08/29/18 05:04 Troponin T 0.433 ng/mL (0.00-0.029) H* 08/26/18 16:51 NT-Pro-B Natriuret Pep 92286 pg/mL (0-450) H 08/26/18 12:36 Triglycerides 96 mg/dL (2-149) 08/26/18 10:01 Cholesterol 116 mg/dL (50-199) 08/26/18 10:01 LDL Cholesterol Direct 60 mg/dL (50-130) 08/26/18 10:01 HDL Cholesterol 42 mg/dL (40-59) 08/26/18 10:01 Cholesterol/HDL Ratio 2.76 % 08/26/18 10:01 Random Vancomycin 14.4 ug/mL (0-40.0) 08/29/18 05:04
--- NOTE | 2018-08-30 12:26 | Progress Note ---
Assessment and Plan Impression * End-stage renal disease on maintenance hemodialysis * Chest pain * osteomyelitis * PNA--cta suggestive of PNA * Hx of MRSA bacteremia --Blood cx: MRSA (Aug 01) --Blood cx: MRSA, coag neg staph (Aug 03) --Blood cx: NGTD (Aug 06) * Hypertension * Type II DM * Diabetic gastroparesis Recommendations * Continue HD - TTS schedule * UF as tolerated * iv levaquin for PNA--?CAP * Cardiology input noted, surgery following * Resume outpatient Vancomycin per ID recommendation at last admission: Vancomycin for a total of 6 weeks ending 09/17/18 * Epogen TIW prn * Adjust diet and meds for ESRD state Subjective Date of service: 08/30/18 Principal diagnosis: esrd Interval history: resting in bed today Objective - Exam Narrative Exam: General appearance: well-developed EENT: ATNC Respiratory: Clear to Ascultation Heart: regular, S1S2 Gastrointestinal: Present: normal. Absent: tenderness, distended Integumentary: warm and dry Musculoskeletal: Present: other (no edema) Psychiatric: cooperative - Vital Signs Vital signs: Vital Signs - 12hr 08/30/18 08/30/18 08/30/18 04:16 05:00 07:21 Temperature 98.0 F Pulse Rate 74 65 Pulse Rate [ 70 Anterior Bilateral Throughout] Respiratory 18 Rate Respiratory 18 Rate [Anterior Bilateral Throughout] Blood Pressure 157/66 O2 Sat by Pulse 92 98 Oximetry 08/30/18 08/30/18 08/30/18 07:31 07:48 08:32 Temperature 97.7 F Pulse Rate 70 80 Pulse Rate [ 71 Anterior Bilateral Throughout] Respiratory 20 Rate Respiratory 20 Rate [Anterior Bilateral Throughout] Blood Pressure 164/62 O2 Sat by Pulse 98 Oximetry 08/30/18 12:24 Temperature 98.5 F Pulse Rate 88 Pulse Rate [ Anterior Bilateral Throughout] Respiratory 18 Rate Respiratory Rate [Anterior Bilateral Throughout] Blood Pressure 165/68 O2 Sat by Pulse 97 Oximetry - Lab 08/29/18 05:04 08/30/18 07:10 Most recent lab results Calcium 6.3 mg/dL (8.4-10.2) L D 08/29/18 05:04 Medications & Allergies - Medications Allergies/Adverse Reactions: Allergies amoxicillin Allergy (Verified 07/03/18 20:57) Unknown Penicillins Allergy (Verified 05/19/18 13:02) Unknown tramadol Allergy (Verified 07/03/18 20:57) Unknown IV contrast Allergy (Uncoded 01/15/17 17:55) Rash Home Medications: Home Medications Medication Instructions Recorded Confirmed Last Taken Type ALBUTEROL Inhaler (OR & NICU) 2 puff IH Q6H PRN 05/19/18 08/26/18 Unknown History [ProAir HFA Inhaler] Lispro Insulin [Humalog] 15 unit SUB-Q TID 07/26/18 08/26/18 07/19/18 History ALBUTEROL NEB's [Proventil 0.083% 2.5 mg IH QID PRN #30 nebu 08/12/18 08/26/18 Unknown Rx NEBS] AtorvaSTATin [Lipitor] 20 mg PO DAILY #30 tablet 08/12/18 08/26/18 Unknown Rx Insulin Glargine [Lantus VIAL] 25 units SUB-Q QHS #1 vial 08/12/18 08/26/18 Unknown Rx Lisinopril [Zestril] 20 mg PO QDAY #30 tablet 08/12/18 08/26/18 Unknown Rx amLODIPine [Norvasc] 10 mg PO DAILY #30 tablet 08/12/18 08/26/18 Unknown Rx cloNIDine-TTS PATCH [Catapres-Tts 0.3 mg TD QWEEK #4 patch 08/12/18 08/26/18 Unknown Rx Patch] hydrALAZINE [Apresoline TAB] 100 mg PO TID #90 tab 08/12/18 08/26/18 Unknown Rx Fluticasone [Flonase] 1 spray NS QDAY PRN 08/26/18 08/26/18 Unknown History Ibuprofen [Motrin] 600 mg PO Q8H PRN 08/26/18 08/26/18 Unknown History Active Medications: Generic Name Dose Route Start Last Admin Trade Name Freq PRN Reason Stop Dose Admin Acetaminophen 650 mg 08/26/18 13:22 Tylenol PO Q4H PRN Pain MILD(1-3)/Fever >100.5/VENTURA Albuterol 2.5 mg 08/28/18 12:00 08/30/18 12:13 Proventil IH Not Given QIDRT RADHA Alprazolam 0.25 mg 08/29/18 15:05 08/29/18 17:14 Xanax PO 0.25 mg Q8H PRN Administration Anxiety Amlodipine Besylate 10 mg 08/27/18 10:00 08/30/18 10:08 Norvasc PO 10 mg DAILY RADHA Administration Atorvastatin Calcium 20 mg 08/27/18 22:00 08/29/18 22:57 Lipitor PO 20 mg HS RADHA Administration Clonidine HCl 0.3 mg 08/26/18 15:00 08/26/18 22:33 Catapres-Tts Patch TD Not Given We RADHA Dextrose 50 ml 08/30/18 06:00 D50w (25gm) Syringe IV PRN PRN Hypoglycemia Diphenhydramine HCl 12.5 mg 08/29/18 17:22 08/29/18 18:19 Benadryl IV 12.5 mg Q6H PRN Administration Itching Famotidine 10 mg 08/27/18 22:00 08/30/18 10:08 Pepcid PO 10 mg BID RADHA Administration Fluticasone Propionate 50 mcg 08/26/18 15:23 Flonase NS QDAY PRN Congestion Hydralazine HCl 100 mg 08/26/18 14:00 08/30/18 10:09 Apresoline PO 100 mg TID [facility] Administration Sodium Chloride 100 mls @ 999 mls/hr 08/27/18 12:45 Nacl 0.9% IV LUIS PRN Hypotension Levofloxacin/Dextrose 500 mg in 100 mls @ 100 mls/hr 08/30/18 10:00 Levaquin 500mg/100ml IV Q48HR [facility] Insulin Glargine 25 units 08/26/18 22:00 08/29/18 22:58 Lantus SUB-Q 25 units QHS RADHA Administration Lisinopril 40 mg 08/29/18 13:00 08/30/18 10:08 Zestril PO 40 mg QDAY RADHA Administration Metoprolol Tartrate 50 mg 08/29/18 13:00 08/30/18 10:08 Lopressor PO 50 mg BID RADHA Administration Ondansetron HCl 4 mg 08/26/18 13:22 08/29/18 10:41 Zofran IV 4 mg Q8H PRN Administration Nausea And Vomiting Sodium Chloride 10 ml 08/26/18 22:00 08/30/18 10:09 Sodium Chloride Flush Syringe 10 Ml IV Not Given BID RADHA Sodium Chloride 10 ml 08/26/18 13:22 Sodium Chloride Flush Syringe 10 Ml IV PRN PRN LINE FLUSH Zolpidem Tartrate 5 mg 08/29/18 22:00 08/29/18 23:04 Ambien PO 5 mg QHS PRN Administration Sleep
[2018-08-30] MEDS: XANAX PO PRN ×2 (14:08→21:33)
--- NOTE | 2018-08-30 15:41 | Progress Note ---
Assessment and Plan - Patient Problems (1) Type 2 diabetes mellitus with foot ulcer Current Visit: Yes Status: Acute (2) Non-pressure chronic ulcer of other part of right foot with other specified severity Current Visit: Yes Status: Acute Plan to address problem: 1) Awaiting MRI to be done Subjective Date of service: 08/30/18 Patient Reports: Positive: no new complaints Objective Vital Signs - 12hr 08/30/18 08/30/18 08/30/18 04:16 05:00 07:21 Temperature 98.0 F Pulse Rate 74 65 Pulse Rate [ 70 Anterior Bilateral Throughout] Respiratory 18 Rate Respiratory 18 Rate [Anterior Bilateral Throughout] Blood Pressure 157/66 O2 Sat by Pulse 92 98 Oximetry 08/30/18 08/30/18 08/30/18 07:31 07:48 08:32 Temperature 97.7 F Pulse Rate 70 80 Pulse Rate [ 71 Anterior Bilateral Throughout] Respiratory 20 Rate Respiratory 20 Rate [Anterior Bilateral Throughout] Blood Pressure 164/62 O2 Sat by Pulse 98 Oximetry 08/30/18 12:24 Temperature 98.5 F Pulse Rate 88 Pulse Rate [ Anterior Bilateral Throughout] Respiratory 18 Rate Respiratory Rate [Anterior Bilateral Throughout] Blood Pressure 165/68 O2 Sat by Pulse 97 Oximetry - Musculoskeletal other (No change in foot exam) - Labs 08/29/18 05:04 08/30/18 07:10 Diabetes panel 08/30/18 Range/Units 07:10 Glucose 77 (65-100) mg/dL Pituitary panel 08/30/18 Range/Units 07:10 Glucose 77 (65-100) mg/dL Adrenal panel 08/30/18 Range/Units 07:10 Glucose 77 (65-100) mg/dL
[2018-08-30] MEDS: AMBIEN PO PRN (21:34)
[2018-08-30] MEDS: LANTUS SUB-Q SCH (21:35)
--- NOTE | 2018-08-31 07:38 | Discharge Summary ---
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 She describes her chest pain as an intermittent, circumferential sharp pain which is aggravated by coughing. She also c/o intermittently productive cough, fever, chills and nasal congestion. Echo done 03/2018 was TDS, EF 50-55%, abnormal diastolic function, LA mildly dilated, small pericardial effusion. Stress MPI done 12/2016 was negative for ischemia, EF 59%. Cardiology initially saw the patient in consultation and felt the chest pain was noncardiac mostly pleuritic type discomfort associated with pneumonia. CTA of the chest showed no evidence of PE but did confirm patchy infiltrates consistent with pneumonia. IV Levaquin was started and patient had significant improvement. Once stabilized, patient did undergo exercise stress test on this admission that was found to be negative. Other common cases during hospital stay included accelerated hypertension. Blood pressure medications were adjusted and her pressure stabilized. The patient was also seen by general surgery for chronic pressure diabetic foot ulcer. MRI was ordered and when completed patient will discharge home. Nephrology also saw the patient in consultation and maintain her on appropriate hemodialysis regimen. Dedicated discharge time 36 minutes. Disposition: - TO HOME OR SELFCARE Time spent for discharge: 36 - Discharge Diagnoses (1) Pleurisy Status: Acute (2) Anemia of chronic disease Status: Acute (3) Cardiomyopathy Status: Acute Qualifiers: Cardiomyopathy type: unspecified Qualified Code(s): I42.9 - Cardiomyopathy, unspecified (4) Chest pain Status: Acute Qualifiers: Chest pain type: unspecified Qualified Code(s): R07.9 - Chest pain, unspecified (5) DVT prophylaxis Status: Acute (6) HTN (hypertension) Status: Acute Qualifiers: Hypertension type: essential hypertension Qualified Code(s): I10 - Esse ntial (primary) hypertension (7) Non-pressure chronic ulcer of other part of right foot with other specified severity Status: Acute (8) Type 2 diabetes mellitus with foot ulcer Status: Acute (9) ESRD (end stage renal disease) on dialysis Status: Chronic (10) Pneumonia Status: Suspected (11) Accelerated hypertension Status: Acute Core Measure Documentation - Palliative Care Palliative Care/ Comfort Measures: Not Applicable - Core Measures Any of the following diagnoses?: none Exam - Constitutional Vitals: Temp Pulse Resp BP Pulse Ox 98.0 F 75 20 137/59 95 08/31/18 03:45 08/31/18 04:00 08/31/18 03:45 08/31/18 03:45 08/31/18 03:45 General appearance: Present: no acute distress, well-nourished - EENT Eyes: Present: PERRL ENT: hearing intact, clear oral mucosa - Neck Neck: Present: supple, normal ROM - Respiratory Respiratory effort: normal Respiratory: bilateral: CTA - Cardiovascular Heart Sounds: Present: S1 & S2. Absent: rub, click - Extremities Extremities: pulses symmetrical, No edema Peripheral Pulses: within normal limits - Abdominal General gastrointestinal: Present: soft, non-tender, non-distended, normal bowel sounds Female genitourinary: Present: normal - Integumentary Integumentary: Present: clear, warm, dry - Musculoskeletal Musculoskeletal: gait normal, strength equal bilaterally - Psychiatric Psychiatric: appropriate mood/affect, intact judgment & insight - Neurologic Neurologic: CNII-XII intact, moves all extremities Plan Activity: advance as tolerated Weight Bearing Status: Weight Bear as Tolerated Diet: low fat, low cholesterol, low salt, diabetic Follow up with: PRIMARY CAREMD [Primary Care Provider] - 3-5 Days NELY GARCIA MD [Staff Physician] - 7 Days BRITT CAMP MD [Staff Physician] - 7 Days APOLINAR HUNG MD [Staff Physician] - 7 Days Prescriptions: ALBUTEROL NEB's [Proventil 0.083% NEBS] 2.5 mg IH QID PRN #30 nebu PRN Reason: SHORTNESS OF BREATH/WHEEZING ALPRAZolam [Xanax TAB] 0.25 mg PO Q8H PRN #12 tablet PRN Reason: Anxiety amLODIPine [Norvasc] 10 mg PO DAILY #30 tablet AtorvaSTATin [Lipitor] 20 mg PO DAILY #30 tablet cloNIDine-TTS PATCH [Catapres-Tts Patch] 0.3 mg TD QWEEK #4 patch Fluticasone [Flonase] 1 spray NS QDAY PRN #30 bottle PRN Reason: Congestion hydrALAZINE [Apresoline TAB] 100 mg PO TID #90 tab Insulin Glargine [Lantus VIAL] 25 units SUB-Q QHS #1 vial levoFLOXacin [Levaquin TAB] 500 mg PO Q48H #5 tablet Lisinopril [Zestril TAB] 40 mg PO QDAY #30 tablet Metoprolol [Lopressor TAB] 50 mg PO BID #60 tablet Zolpidem [Ambien] 5 mg PO QHS PRN #10 tablet PRN Reason: Sleep
[2018-08-31] MEDS: PROVENTIL IH SCH ×3 (08:58→15:56)
[2018-08-31] MEDS: NORVASC PO SCH (09:56)
[2018-08-31] MEDS: PEPCID PO SCH (09:56)
[2018-08-31] MEDS: LOPRESSOR PO SCH (09:57)
[2018-08-31] MEDS: APRESOLINE PO SCH ×2 (09:57→14:13)
[2018-08-31] MEDS: ZESTRIL PO SCH (09:57)
[2018-08-31] MEDS: SODIUM CHLORIDE FLUSH SYRINGE 10 ML IV SCH (09:58)
--- NOTE | 2018-08-31 10:04 | Progress Note ---
Assessment and Plan Impression * End-stage renal disease on maintenance hemodialysis * PNA * Hx of MRSA bacteremia --Blood cx: MRSA (Aug 01) --Blood cx: MRSA, coag neg staph (Aug 03) --Blood cx: NGTD (Aug 06) * Hypertension * Type II DM * Diabetic gastroparesis Recommendations * Hemodialysis today as patient's outpatient dialysis center is on a holiday schedule * UF as tolerated * Resume TTS schedule after today * Cardiology consultation pending * Pharmacy dosing Vanco. Vancomycin for a total of 6 weeks ending 09/17/18 per ID recommendation at last admission; Did not recieve abx on 08/29 - bag still hanging in room. Notified tank charger and awaiting call from bi manager. * Abx for PNA per primary team * Epogen TIW prn * Adjust diet and meds for ESRD state Subjective Date of service: 08/31/18 Principal diagnosis: esrd Interval history: Patient has no complaints. Reports that she did not receive Vanco on Friday - Abx remains hanging on IV pole in room Objective - Vital Signs Vital signs: Vital Signs - 12hr 08/31/18 08/31/18 08/31/18 00:12 03:45 04:00 Temperature 97.0 F L 98.0 F Pulse Rate 76 75 75 Pulse Rate [ Anterior Bilateral Throughout] Respiratory 20 20 Rate Respiratory Rate [Anterior Bilateral Throughout] Blood Pressure 123/55 137/59 O2 Sat by Pulse 95 95 Oximetry 08/31/18 08/31/18 08/31/18 07:49 08:58 09:56 Temperature 97.8 F Pulse Rate 82 84 Pulse Rate [ 85 Anterior Bilateral Throughout] Respiratory 20 Rate Respiratory 20 Rate [Anterior Bilateral Throughout] Blood Pressure 142/68 140/68 O2 Sat by Pulse 97 Oximetry 08/31/18 09:57 Temperature Pulse Rate 84 Pulse Rate [ Anterior Bilateral Throughout] Respiratory Rate Respiratory Rate [Anterior Bilateral Throughout] Blood Pressure 140/68 O2 Sat by Pulse Oximetry - General Appearance General appearance: well-developed, well-nourished EENT: ATNC Respiratory: Present: Clear to Ascultation Cardiology: regular, S1S2 Gastrointestinal: normal Integumentary: warm and dry Neurologic: no focal deficit, alert and oriented x3 Musculoskeletal: other (no edema) Psychiatric: cooperative - Lab 08/29/18 05:04 08/30/18 07:10 Most recent lab results Calcium 6.3 mg/dL (8.4-10.2) L D 08/29/18 05:04 Medications & Allergies - Medications Allergies/Adverse Reactions: Allergies amoxicillin Allergy (Verified 07/03/18 20:57) Unknown Penicillins Allergy (Verified 05/19/18 13:02) Unknown tramadol Allergy (Verified 07/03/18 20:57) Unknown IV contrast Allergy (Uncoded 01/15/17 17:55) Rash Home Medications: Home Medications Medication Instructions Recorded Confirmed Last Taken Type ALBUTEROL Inhaler (OR & NICU) 2 puff IH Q6H PRN 05/19/18 08/26/18 Unknown History [ProAir HFA Inhaler] Lispro Insulin [Humalog] 15 unit SUB-Q TID 07/26/18 08/26/18 07/19/18 History Ibuprofen [Motrin 600 MG tab] 600 mg PO Q8H PRN 08/26/18 08/26/18 Unknown History ALBUTEROL NEB's [Proventil 0.083% 2.5 mg IH QID PRN #30 nebu 08/31/18 Unknown Rx NEBS] ALPRAZolam [Xanax TAB] 0.25 mg PO Q8H PRN #12 tablet 08/31/18 Unknown Rx AtorvaSTATin [Lipitor] 20 mg PO DAILY #30 tablet 08/31/18 Unknown Rx Fluticasone [Flonase] 1 spray NS QDAY PRN #30 bottle 08/31/18 Unknown Rx Insulin Glargine [Lantus VIAL] 25 units SUB-Q QHS #1 vial 08/31/18 Unknown Rx Lisinopril [Zestril TAB] 40 mg PO QDAY #30 tablet 08/31/18 Unknown Rx Metoprolol [Lopressor TAB] 50 mg PO BID #60 tablet 08/31/18 Unknown Rx Zolpidem [Ambien] 5 mg PO QHS PRN #10 tablet 08/31/18 Unknown Rx amLODIPine [Norvasc] 10 mg PO DAILY #30 tablet 08/31/18 Unknown Rx cloNIDine-TTS PATCH [Catapres-Tts 0.3 mg TD QWEEK #4 patch 08/31/18 Unknown Rx Patch] hydrALAZINE [Apresoline TAB] 100 mg PO TID #90 tab 08/31/18 Unknown Rx levoFLOXacin [Levaquin TAB] 500 mg PO Q48H #5 tablet 08/31/18 Unknown Rx Active Medications: Generic Name Dose Route Start Last Admin Trade Name Freq PRN Reason Stop Dose Admin Acetaminophen 650 mg 08/26/18 13:22 08/30/18 21:32 Tylenol PO 650 mg Q4H PRN Administration Pain MILD(1-3)/Fever >100.5/VENTURA Albuterol 2.5 mg 08/28/18 12:00 08/31/18 08:58 Proventil IH 2.5 mg QIDRT RADHA Administration Alprazolam 0.25 mg 08/29/18 15:05 08/30/18 21:33 Xanax PO 0.25 mg Q8H PRN Administration Anxiety Amlodipine Besylate 10 mg 08/27/18 10:00 08/31/18 09:56 Norvasc PO 10 mg DAILY RADHA Administration Atorvastatin Calcium 20 mg 08/27/18 22:00 08/30/18 21:32 Lipitor PO 20 mg HS RADHA Administration Clonidine HCl 0.3 mg 08/26/18 15:00 08/26/18 22:33 Catapres-Tts Patch TD Not Given We RADHA Dextrose 50 ml 08/30/18 06:00 D50w (25gm) Syringe IV PRN PRN Hypoglycemia Diphenhydramine HCl 12.5 mg 08/29/18 17:22 08/29/18 18:19 Benadryl IV 12.5 mg Q6H PRN Administration Itching Famotidine 10 mg 08/27/18 22:00 08/31/18 09:56 Pepcid PO 10 mg BID RADHA Administration Fluticasone Propionate 50 mcg 08/26/18 15:23 Flonase NS QDAY PRN Congestion Hydralazine HCl 100 mg 08/26/18 14:00 08/31/18 09:57 Apresoline PO 100 mg TID RADHA Administration Sodium Chloride 100 mls @ 999 mls/hr 08/27/18 12:45 Nacl 0.9% IV LUIS PRN Hypotension Levofloxacin/Dextrose 500 mg in 100 mls @ 100 mls/hr 08/30/18 10:00 Levaquin 500mg/100ml IV Q48HR RADHA Insulin Glargine 25 units 08/26/18 22:00 08/30/18 21:35 Lantus SUB-Q Not Given QHS RADHA Lisinopril 40 mg 08/29/18 13:00 08/31/18 09:57 Zestril PO 40 mg QDAY RADHA Administration Metoprolol Tartrate 50 mg 08/29/18 13:00 08/31/18 09:57 Lopressor PO 50 mg BID RADHA Administration Ondansetron HCl 4 mg 08/26/18 13:22 08/29/18 10:41 Zofran IV 4 mg Q8H PRN Administration Nausea And Vomiting Sodium Chloride 10 ml 08/26/18 22:00 08/31/18 09:58 Sodium Chloride Flush Syringe 10 Ml IV 10 ml BID RADHA Administration Sodium Chloride 10 ml 08/26/18 13:22 Sodium Chloride Flush Syringe 10 Ml IV PRN PRN LINE FLUSH Zolpidem Tartrate 5 mg 08/29/18 22:00 08/30/18 21:34 Ambien PO 5 mg QHS PRN Administration Sleep
[2018-08-31] MEDS: XANAX PO PRN (10:40)
[2018-08-31] MEDS ORDERED: VANCOMYCIN/NS 1 GM/250 ML 1 GM/250 ML BAG IV ONE ×2 (15:00)
[2018-08-31] MEDS ORDERED: NACL 0.9 (PRIMING MACHINE ONLY DIALYSIS) MC ONE (15:49)
[2018-08-31 18:25] VITALS: BP 154/69
== END 2018-08-31 17:45 | disposition home or self-care (01) | DRG 280 ==
LOC: ED 09:27 → 4A 13:22
PROVIDERS: ADMIT Internal Medicine; ATTEND Hospitalist
PROC: 5A1D70Z Performance of Urinary Filtration, Intermittent, Less than 6 Hours Per Day (ICD-10-PCS; principal; 2018-08-27)
PROC: 5A1D70Z Performance of Urinary Filtration, Intermittent, Less than 6 Hours Per Day (ICD-10-PCS; 2018-08-29)
PROC: 5A1D70Z Performance of Urinary Filtration, Intermittent, Less than 6 Hours Per Day (ICD-10-PCS; 2018-08-31)
DX: I21.A1 Myocardial infarction type 2 (principal); J18.9 Pneumonia, unspecified organism; N18.6 End stage renal disease; J81.0 Acute pulmonary edema; J96.90 Respiratory failure, unspecified, unspecified whether with hypoxia or hypercapnia; I42.9 Cardiomyopathy, unspecified; I50.9 Heart failure, unspecified; I13.2 Hypertensive heart and chronic kidney disease with heart failure and with stage 5 chronic kidney disease, or end stage renal disease; E11.22 Type 2 diabetes mellitus with diabetic chronic kidney disease; E11.43 Type 2 diabetes mellitus with diabetic autonomic (poly)neuropathy; K31.84 Gastroparesis; D63.1 Anemia in chronic kidney disease; L40.9 Psoriasis, unspecified; I24.9 Acute ischemic heart disease, unspecified; E11.621 Type 2 diabetes mellitus with foot ulcer; L97.519 Non-pressure chronic ulcer of other part of right foot with unspecified severity; E11.69 Type 2 diabetes mellitus with other specified complication; M86.9 Osteomyelitis, unspecified; I16.0 Hypertensive urgency; Z22.322 Carrier or suspected carrier of Methicillin resistant Staphylococcus aureus; Z88.0 Allergy status to penicillin; Z88.1 Allergy status to other antibiotic agents; Z99.2 Dependence on renal dialysis; Z86.14 Personal history of Methicillin resistant Staphylococcus aureus infection; Z91.041 Radiographic dye allergy status; Z79.899 Other long term (current) drug therapy; Z79.4 Long term (current) use of insulin; Z91.14 Patient's other noncompliance with medication regimen; Z83.3 Family history of diabetes mellitus; Z82.49 Family history of ischemic heart disease and other diseases of the circulatory system; Z87.442 Personal history of urinary calculi; Z89.431 Acquired absence of right foot
CPT/HCPCS: 36415; 71045; 71275; 78452; 80048; 80061; 80202; 82947; 82962; 83880; 84484; 85025; 93005; 93010; 93017; 94640; 94760; 96374; G0378; A9270-GY; A9502; J1200; J1815; J1956; J2270; J2405; J2785; J2930; J3370; J7030; J7040; Q9967

== ENCOUNTER 2018-10-04 01:52 | Inpatient (IN) | payer MEDICAID ==
[2018-10-04] MEDS ORDERED: ASPIRIN PO ONE ×2 (02:37→06:14)
[2018-10-04 03:05] LABS: Basophils # (Auto) 0.1 K/mm3 (0.0-0.1); Basophils % (Auto) 1.1 % (0.0-1.8); Eosinophils # (Auto) 0.2 K/mm3 (0.0-0.4); Eosinophils % (Auto) 2.8 % (0.0-4.3); Hematocrit 33.3 % (30.3-42.9); Hemoglobin 10.5 gm/dl (10.1-14.3); Lymphocytes # (Auto) 1.1 K/mm3 (1.2-5.4); Lymphocytes % (Auto) 15.8 % (13.4-35.0); Mean Corpuscular HGB Conc 32 % (30-34); Mean Corpuscular Volume 88 fl (79-97); Monocytes # (Auto) 0.5 K/mm3 (0.0-0.8); Monocytes % (Auto) 7.8 % (0.0-7.3); Platelet Count 205 K/mm3 (140-440); Red Cell Distribution Width 17.8 % (13.2-15.2)
[2018-10-04 03:18] LABS: Calcium 8.6 mg/dL (8.4-10.2)
[2018-10-04 03:40] LABS: Chol/HDL Ratio 3.23 %
[2018-10-04] MEDS ORDERED: NITRO-BID 2% TP ONE (06:14)
--- NOTE | 2018-10-04 06:15 | Emergency Department Report ---
ED Chest Pain HPI - General Chief Complaint: Chest Pain Stated Complaint: CHEST PAIN Time Seen by Provider: 10/04/18 06:13 Source: patient Mode of arrival: Ambulatory Limitations: No Limitations - History of Present Illness Initial Comments: Patient presents to the emergency department last night for evaluation of multiple complaints. She states her primary problem is recurrent chest pain which goes across her chest feels sharp and ON movement. It is associated with nonproductive cough. It is not clearly pleuritic. It does not radiate elsewhere. Apparently patient said a nuclear perfusion study within the last month which did not show evidence of ischemia. She has chronically elevated troponins. She missed her dialysis on Friday. She states that she hurts all over in addition. She complains of some difficulty in breathing which worsens when she lays down flat. Patient was recently discharged. Her last cardiology note indicates: End-stage renal disease on hemodialysis respiratory failure nstemi type 2 htn chol dm nstemi type 2 acute diastolic dsyfunction abnl bnp Anemia secondary renal failure non compliance rec: Continue medical management needs better BP control, treat medically for abnormal troponin stress test was technically limited but no significant ischemia noted continue current medical management MD Complaint: chest pain -: Gradual, month(s) Onset: during rest Pain Location: other (across the anterior chest) Pain Radiation: none (no radiation elsewhere) Severity scale (0 -10): 9 Quality: sharp Consistency: intermittent Improves With: nothing Worsens With: movement Context: other (recent "non-STEMI" chronically elevated troponins) re: dyspnea Other Symptoms: cough Treatments Prior to Arrival: none Aspirin use within the Past 7 Days: (0) No (not according to current medication list) - Related Data Home Medications Medication Instructions Recorded Confirmed Last Taken ALBUTEROL Inhaler (OR & NICU) 2 puff IH Q6H PRN 05/19/18 08/26/18 Unknown [ProAir HFA Inhaler] Lispro Insulin [Humalog] 15 unit SUB-Q TID 07/26/18 08/26/18 07/19/18 Ibuprofen [Motrin 600 MG tab] 600 mg PO Q8H PRN 08/26/18 08/26/18 Unknown Previous Rx's Medication Instructions Recorded Last Taken Type ALBUTEROL NEB's [Proventil 0.083% 2.5 mg IH QID PRN #30 nebu 08/31/18 Unknown Rx NEBS] ALPRAZolam [Xanax TAB] 0.25 mg PO Q8H PRN #12 tablet 08/31/18 Unknown Rx AtorvaSTATin [Lipitor] 20 mg PO DAILY #30 tablet 08/31/18 Unknown Rx Fluticasone [Flonase] 1 spray NS QDAY PRN #30 bottle 08/31/18 Unknown Rx Insulin Glargine [Lantus VIAL] 25 units SUB-Q QHS #1 vial 08/31/18 Unknown Rx Lisinopril [Zestril TAB] 40 mg PO QDAY #30 tablet 08/31/18 Unknown Rx Metoprolol [Lopressor TAB] 50 mg PO BID #60 tablet 08/31/18 Unknown Rx Zolpidem [Ambien] 5 mg PO QHS PRN #10 tablet 08/31/18 Unknown Rx amLODIPine [Norvasc] 10 mg PO DAILY #30 tablet 08/31/18 Unknown Rx cloNIDine-TTS PATCH [Catapres-Tts 0.3 mg TD QWEEK #4 patch 08/31/18 Unknown Rx Patch] hydrALAZINE [Apresoline TAB] 100 mg PO TID #90 tab 08/31/18 Unknown Rx levoFLOXacin [Levaquin TAB] 500 mg PO Q48H #5 tablet 08/31/18 Unknown Rx Allergies Allergy/AdvReac Type Severity Reaction Status Date / Time amoxicillin Allergy Unknown Verified 07/03/18 20:57 Penicillins Allergy Unknown Verified 05/19/18 13:02 tramadol Allergy Unknown Verified 07/03/18 20:57 IV contrast Allergy Rash Uncoded 01/15/17 17:55 Heart Score - HEART Score History: Slightly suspicious EKG: Non-specific Age: 45-65 Risk factors: 1-2 risk factors Troponin: 1-3x normal limit HEART Score: 4 - Critical Actions Critical Actions: 4-6 pts:12-16.6% risk of adverse cardiac event. Should be admitted ED Review of Systems ROS: Stated complaint: CHEST PAIN Other details as noted in HPI Constitutional: denies: chills, fever Eyes: denies: eye pain, eye discharge, vision change ENT: denies: ear pain, throat pain Respiratory: cough, shortness of breath. denies: wheezing Cardiovascular: chest pain. denies: palpitations Endocrine: no symptoms reported Gastrointestinal: denies: abdominal pain, nausea, diarrhea Genitourinary: denies: urgency, dysuria, discharge Musculoskeletal: as per HPI (hurting all over). denies: back pain, joint swelling, arthralgia Skin: denies: rash, lesions Neurological: denies: headache, weakness, paresthesias Psychiatric: denies: anxiety, depression Hematological/Lymphatic: denies: easy bleeding, easy bruising ED Past Medical Hx - Past Medical History Previous Medical History?: Yes Hx Hypertension: Yes Hx Heart Attack/AMI: No Hx Congestive Heart Failure: No Hx Diabetes: Yes Hx Deep Vein Thrombosis: No Hx Pulmonary Embolism: No Hx Liver Disease: No Hx Renal Disease: Yes Hx Kidney Stones: Yes Hx Asthma: Yes Hx COPD: No Hx Tuberculosis: No Hx HIV: No Additional medical history: psorasis. NEUROPATHY. FIBROIDS. DIALYSIS MWF - Surgical History Hx Coronary Stent: No Hx Pacemaker: No Hx Internal Defibrillator: No Additional Surgical History: X 1 , Hx. left wrist surgery 2 toes amputated r) foot. partial right foot amputation - Social History Smoking Status: Never Smoker Substance Use Type: None - Medications Home Medications: Home Medications Medication Instructions Recorded Confirmed Last Taken Type ALBUTEROL Inhaler (OR & NICU) 2 puff IH Q6H PRN 05/19/18 08/26/18 Unknown History [ProAir HFA Inhaler] Lispro Insulin [Humalog] 15 unit SUB-Q TID 07/26/18 08/26/18 07/19/18 History Ibuprofen [Motrin 600 MG tab] 600 mg PO Q8H PRN 08/26/18 08/26/18 Unknown History ALBUTEROL NEB's [Proventil 0.083% 2.5 mg IH QID PRN #30 nebu 08/31/18 Unknown Rx NEBS] ALPRAZolam [Xanax TAB] 0.25 mg PO Q8H PRN #12 tablet 08/31/18 Unknown Rx AtorvaSTATin [Lipitor] 20 mg PO DAILY #30 tablet 08/31/18 Unknown Rx Fluticasone [Flonase] 1 spray NS QDAY PRN #30 bottle 08/31/18 Unknown Rx Insulin Glargine [Lantus VIAL] 25 units SUB-Q QHS #1 vial 08/31/18 Unknown Rx Lisinopril [Zestril TAB] 40 mg PO QDAY #30 tablet 08/31/18 Unknown Rx Metoprolol [Lopressor TAB] 50 mg PO BID #60 tablet 08/31/18 Unknown Rx Zolpidem [Ambien] 5 mg PO QHS PRN #10 tablet 08/31/18 Unknown Rx amLODIPine [Norvasc] 10 mg PO DAILY #30 tablet 08/31/18 Unknown Rx cloNIDine-TTS PATCH [Catapres-Tts 0.3 mg TD QWEEK #4 patch 08/31/18 Unknown Rx Patch] hydrALAZINE [Apresoline TAB] 100 mg PO TID #90 tab 08/31/18 Unknown Rx levoFLOXacin [Levaquin TAB] 500 mg PO Q48H #5 tablet 08/31/18 Unknown Rx ED Physical Exam - General Limitations: No Limitations General appearance: alert, in no apparent distress - Head Head exam: Present: atraumatic, normocephalic - Eye Eye exam: Present: normal appearance. Absent: scleral icterus - ENT ENT exam: Present: mucous membranes moist - Neck Neck exam: Present: normal inspection. Absent: tenderness, meningismus - Respiratory Respiratory exam: Present: normal lung sounds bilaterally, chest wall tenderness. Absent: respiratory distress - Cardiovascular Cardiovascular Exam: Present: regular rate, normal rhythm. Absent: systolic murmur, diastolic murmur, rubs, gallop - GI/Abdominal GI/Abdominal exam: Present: soft, normal bowel sounds. Absent: distended, tenderness, guarding, rebound - Extremities Exam Extremities exam: Present: normal inspection - Back Exam Back exam: Present: normal inspection - Neurological Exam Neurological exam: Present: alert, oriented X3, CN II-XII intact. Absent: motor sensory deficit - Psychiatric Psychiatric exam: Present: normal affect, normal mood - Skin Skin exam: Present: warm, dry, intact, normal color. Absent: rash ED Course Vital Signs 10/04/18 10/04/18 10/04/18 02:05 02:33 03:46 Temperature 98.3 F 98.3 F Pulse Rate 101 H 102 H 91 H Respiratory 18 18 24 Rate Blood Pressure 192/84 192/84 189/91 Blood Pressure [Left] O2 Sat by Pulse 93 93 94 Oximetry 10/04/18 10/04/18 10/04/18 04:00 05:07 05:30 Temperature Pulse Rate 91 H 92 H 90 Respiratory 19 17 12 Rate Blood Pressure 186/93 186/93 186/99 Blood Pressure [Left] O2 Sat by Pulse 91 93 Oximetry 10/04/18 10/04/18 10/04/18 06:00 06:37 07:15 Temperature 97.8 F Pulse Rate 90 93 H 94 H Respiratory 11 L 14 Rate Blood Pressure 183/89 193/89 Blood Pressure 182/108 [Left] O2 Sat by Pulse 94 95 Oximetry - Reevaluation(s) Reevaluation #1: Nitro paste was initiated. Discussed the medical management of the patient with Dr. Albert. He stated he would consult. He advised Kayexalate 15 g. She will be admitted to the hospital service for further care and evaluation. 10/04/18 07:29 Reevaluation #2: Unable to currently do [facility] 10/04/18 07:31 MOOSE score - Moose Score Age > 65: (0) No Aspirin use within the Past 7 Days: (0) No 3 or more CAD Risk Factors: (1) Yes 2 or more Angina events in past 24 hrs: (1) Yes Known CAD with more than 50% Stenosis: (0) No Elevated Cardiac Markers: (0) No ST Deviation Greater than 0.5mm: (0) No MOOSE Score: 2 ED Medical Decision Making - Lab Data Result diagrams: 10/04/18 02:45 10/04/18 02:45 Laboratory Results - last 24 hr 10/04/18 10/04/18 10/04/18 02:45 02:45 05:23 WBC 6.7 RBC 3.80 Hgb 10.5 Hct 33.3 MCV 88 MCH 28 MCHC 32 RDW 17.8 H Plt Count 205 Lymph % (Auto) 15.8 [place] % (Auto) 7.8 H Eos % (Auto) 2.8 Baso % (Auto) 1.1 Lymph # 1.1 L [place] # 0.5 Eos # 0.2 Baso # 0.1 Seg Neutrophils % 72.5 H Seg Neutrophils # 4.9 Sodium 138 Potassium 5.3 H Chloride 98.1 Carbon Dioxide 26 Anion Gap 19 BUN 47 H Creatinine 9.8 H Estimated GFR 4 BUN/Creatinine Ratio 5 Glucose 234 H Calcium 8.6 Troponin T 0.607 H* 0.512 H* Triglycerides 136 Cholesterol 136 LDL Cholesterol Direct 78 HDL Cholesterol 42 Cholesterol/HDL Ratio 3.23 - EKG Data -: EKG Interpreted by Me EKG shows normal: sinus rhythm, axis, intervals, QRS complexes, ST-T waves (N ST-T changes mild) Rate: normal - EKG Data Interpretation: nonspecific ST-T wave afisal - Radiology Data Radiology results: report reviewed Critical care attestation.: If time is entered above; I have spent that time in minutes in the direct care of this critically ill patient, excluding procedure time. ED Disposition Clinical Impression: Elevated troponin, End-stage renal disease needing dialysis, Medical non- compliance, Poorly-controlled hypertension Chest pain Qualifiers: Chest pain type: unspecified Qualified Code(s): R07.9 - Chest pain, unspecified Cardiomyopathy Qualifiers: Cardiomyopathy type: unspecified Qualified Code(s): I42.9 - Cardiomyopathy, unspecified Congestive heart failure Qualifiers: Heart failure type: combined systolic and diastolic Heart failure chronicity: acute on chronic Qualified Code(s): I50.43 - Acute on chronic combined systolic (congestive) and diastolic (congestive) heart failure Disposition: OP ADMIT IP TO THIS HOSP Is pt being admited?: Yes Does the pt Need Aspirin: Yes Condition: Stable Instructions: Chest Pain (ED) Referrals: KRISTOPHER VILLANUEVA MD [Primary Care Provider] - 3-5 Days Time of Disposition: 07:34
--- NOTE | 2018-10-04 06:36 | XRay Report ---
FINAL REPORT EXAM: XR CHEST 1V AP HISTORY: hypertension TECHNIQUE: A portable upright view the chest was obtained and compared to the study of 08/01/2018. FINDINGS: The heart size is normal. The lungs are mildly congested with interstitial edema. There is a small ri ght-sided effusion. There is a venous catheter with the tip in the distal superior vena cava. The ske letal structures do not show any acute changes. IMPRESSION: Congestive heart failure pattern with small right-sided effusion.
[2018-10-04] MEDS ORDERED: KIONEX PO ONE (07:05)
[2018-10-04 07:20] LABS: INR 0.98 (0.87-1.13)
[2018-10-04 07:21] LABS: Partial Thromboplastin Time 32.2 Sec. (24.2-36.6)
[2018-10-04 07:33] LABS: Albumin 3.9 g/dL (3.9-5); Bilirubin,Direct 0.2 mg/dL (0-0.2)
[2018-10-04] MEDS ORDERED: NORCO 5/325 ONE (08:31)
[2018-10-04] MEDS ORDERED: NORCO 5/325 PO ONE (08:39)
--- NOTE | 2018-10-04 09:52 | History and Physical Report ---
History of Present Illness Chief complaint: Swelling all over History of present illness: 48-year-old woman who presents with intermittent chest pain. She states that she did not go to dialysis on Friday. She claims she did not go to dialysis but she not feel well, she was having chest pain and swelling all over. Edema got worse, she did have an intermittent dull chest pain that has been 6 out of 10. There are no exacerbating or relieving factors. She is complaining of orthopnea as well. She is saying that she takes all her medications as scheduled. She also states that she is more adherent to medication and she was in the past. Past Medical History: diabetes, ESRD, hypertension, other (psoriasis) Past Surgical History: , Other (bilateral foot) Social history: single Family history: diabetes, hypertension Medications and Allergies Allergies Allergy/AdvReac Type Severity Reaction Status Date / Time amoxicillin Allergy Unknown Verified 07/03/18 20:57 Penicillins Allergy Unknown Verified 05/19/18 13:02 tramadol Allergy Unknown Verified 07/03/18 20:57 IV contrast Allergy Rash Uncoded 01/15/17 17:55 Home Medications Medication Instructions Recorded Confirmed Last Taken Type ALBUTEROL Inhaler (OR & NICU) 2 puff IH Q6H PRN 05/19/18 10/04/18 Unknown History [ProAir HFA Inhaler] Lispro Insulin [Humalog] 15 unit SUB-Q TID 07/26/18 10/04/18 07/19/18 History Ibuprofen [Motrin 600 MG tab] 600 mg PO Q8H PRN 08/26/18 10/04/18 Unknown History ALBUTEROL NEB's [Proventil 0.083% 2.5 mg IH QID PRN #30 nebu 08/31/18 10/04/18 Unknown Rx NEBS] ALPRAZolam [Xanax TAB] 0.25 mg PO Q8H PRN #12 tablet 08/31/18 10/04/18 Unknown Rx AtorvaSTATin [Lipitor] 20 mg PO DAILY #30 tablet 08/31/18 10/04/18 Unknown Rx Fluticasone [Flonase] 1 spray NS QDAY PRN #30 bottle 08/31/18 10/04/18 Unknown Rx Insulin Glargine [Lantus VIAL] 25 units SUB-Q QHS #1 vial 08/31/18 10/04/18 Unknown Rx Lisinopril [Zestril TAB] 40 mg PO QDAY #30 tablet 08/31/18 10/04/18 Unknown Rx Metoprolol [Lopressor TAB] 50 mg PO BID #60 tablet 08/31/18 10/04/18 Unknown Rx Zolpidem [Ambien] 5 mg PO QHS PRN #10 tablet 08/31/18 10/04/18 Unknown Rx amLODIPine [Norvasc] 10 mg PO DAILY #30 tablet 08/31/18 10/04/18 Unknown Rx cloNIDine-TTS PATCH [Catapres-Tts 0.3 mg TD QWEEK #4 patch 08/31/18 10/04/18 Unknown Rx Patch] hydrALAZINE [Apresoline TAB] 100 mg PO TID #90 tab 08/31/18 10/04/18 Unknown Rx levoFLOXacin [Levaquin TAB] 500 mg PO Q48H #5 tablet 08/31/18 10/04/18 Unknown Rx Review of Systems All systems: negative Constitutional: fatigue Ears, nose, mouth and throat: no ear pain Breasts: no deferred Cardiovascular: chest pain Respiratory: no cough Gastrointestinal: no abdominal pain Musculoskeletal: no neck stiffness Integumentary: no rash Neurological: no transient paralysis Psychiatric: no anxiety Endocrine: no cold intolerance Hematologic/Lymphatic: no easy bruising Allergic/Immunologic: no urticaria Exam - Constitutional Vitals: Temp Pulse Resp BP Pulse Ox 97.8 F 94 H 14 182/108 95 10/04/18 07:15 10/04/18 07:15 10/04/18 07:15 10/04/18 07:15 10/04/18 07:15 General appearance: Present: no acute distress, well-nourished - EENT Eyes: Present: PERRL ENT: hearing intact, clear oral mucosa - Neck Neck: Present: supple, normal ROM - Respiratory Respiratory effort: normal Respiratory: bilateral: rales - Cardiovascular Heart Sounds: Present: S1 & S2. Absent: rub, click - Extremities Extremities: pulses symmetrical Extremity abnormal: edema (pitting bipedal, 3 plus), other (left TMA) Peripheral Pulses: within normal limits - Abdominal General gastrointestinal: Present: soft, non-tender, non-distended, normal bowel sounds Female genitourinary: Present: normal - Integumentary Integumentary: Present: clear, warm, dry - Musculoskeletal Musculoskeletal: gait normal, strength equal bilaterally - Psychiatric Psychiatric: appropriate mood/affect, intact judgment & insight - Neurologic Neurologic: CNII-XII intact, moves all extremities Results - Labs CBC & Chem 7: 10/04/18 02:45 10/04/18 02:45 Labs: Laboratory Last Values WBC 6.7 K/mm3 (4.5-11.0) 10/04/18 02:45 RBC 3.80 M/mm3 (3.65-5.03) 10/04/18 02:45 Hgb 10.5 gm/dl (10.1-14.3) 10/04/18 02:45 Hct 33.3 % (30.3-42.9) 10/04/18 02:45 MCV 88 fl (79-97) 10/04/18 02:45 MCH 28 pg (28-32) 10/04/18 02:45 MCHC 32 % (30-34) 10/04/18 02:45 RDW 17.8 % (13.2-15.2) H 10/04/18 02:45 Plt Count 205 K/mm3 (140-440) 10/04/18 02:45 Lymph % (Auto) 15.8 % (13.4-35.0) 10/04/18 02:45 [place] % (Auto) 7.8 % (0.0-7.3) H 10/04/18 02:45 Eos % (Auto) 2.8 % (0.0-4.3) 10/04/18 02:45 Baso % (Auto) 1.1 % (0.0-1.8) 10/04/18 02:45 Lymph # 1.1 K/mm3 (1.2-5.4) L 10/04/18 02:45 [place] # 0.5 K/mm3 (0.0-0.8) 10/04/18 02:45 Eos # 0.2 K/mm3 (0.0-0.4) 10/04/18 02:45 Baso # 0.1 K/mm3 (0.0-0.1) 10/04/18 02:45 Seg Neutrophils % 72.5 % (40.0-70.0) H 10/04/18 02:45 Seg Neutrophils # 4.9 K/mm3 (1.8-7.7) 10/04/18 02:45 PT 13.4 Sec. (12.2-14.9) 10/04/18 07:05 INR 0.98 (0.87-1.13) 10/04/18 07:05 APTT 32.2 Sec. (24.2-36.6) 10/04/18 07:05 D-Dimer 1742.00 ng/mlDDU (0-234) H 10/04/18 07:05 Sodium 138 mmol/L (137-145) 10/04/18 02:45 Potassium 5.3 mmol/L (3.6-5.0) H 10/04/18 02:45 Chloride 98.1 mmol/L (98-107) 10/04/18 02:45 Carbon Dioxide 26 mmol/L (22-30) 10/04/18 02:45 Anion Gap 19 mmol/L 10/04/18 02:45 BUN 47 mg/dL (7-17) H 10/04/18 02:45 Creatinine 9.8 mg/dL (0.7-1.2) H 10/04/18 02:45 Estimated GFR 4 ml/min 10/04/18 02:45 BUN/Creatinine Ratio 5 % 10/04/18 02:45 Glucose 234 mg/dL (65-100) H 10/04/18 02:45 Calcium 8.6 mg/dL (8.4-10.2) 10/04/18 02:45 Phosphorus 5.20 mg/dL (2.5-4.5) H 10/04/18 06:58 Total Bilirubin 0.60 mg/dL (0.1-1.2) 10/04/18 07:05 Direct Bilirubin 0.2 mg/dL (0-0.2) 10/04/18 07:05 Indirect Bilirubin 0.4 mg/dL 10/04/18 07:05 AST 27 units/L (5-40) 10/04/18 07:05 ALT 21 units/L (7-56) 10/04/18 07:05 Alkaline Phosphatase 133 units/L (35-129) H 10/04/18 07:05 Troponin T 0.527 ng/mL (0.00-0.029) H* 10/04/18 07:05 NT-Pro-B Natriuret Pep 87392 pg/mL (0-450) H 10/04/18 07:05 Total Protein 7.1 g/dL (6.3-8.2) 10/04/18 07:05 Albumin 3.9 g/dL (3.9-5) 10/04/18 07:05 Albumin/Globulin Ratio 1.2 % 10/04/18 07:05 Triglycerides 136 mg/dL (2-149) 10/04/18 02:45 Cholesterol 136 mg/dL (50-199) 10/04/18 02:45 LDL Cholesterol Direct 78 mg/dL (50-130) 10/04/18 02:45 HDL Cholesterol 42 mg/dL (40-59) 10/04/18 02:45 Cholesterol/HDL Ratio 3.23 % 10/04/18 02:45 Assessment and Plan Assessment and plan: 48-year-old woman with a history of end-stage renal disease who presents with recurrent chest pain, recent negative stress test last month Plan Nephrology consulted for urgent HD -cardiology consulted to eval for elevated trop by ED, patient had negative stress test last month. She also has preserved EF on echo -Chest pain most likely due to hypertensive urgency due to nonadherence to her medications -obtain CTA chest, d dimer elevated -UF to remove excess fluid -optimize insulin, check A1c -counseled on improved adherence Diagnoses Hypertensive urgency Mild hyperkalemia Nonspecific elevation of troponin Elevated d-dimer Fluid overload DM, insulin dependent Acute on chronic diastolic CHF -Nonadherence to medications and dialysis DVT ppx heparin sq
[2018-10-04] MEDS ORDERED: PROAIR IH PRN (09:59)
[2018-10-04] MEDS ORDERED: FLONASE NS PRN (09:59)
[2018-10-04] MEDS ORDERED: PROVENTIL IH PRN (09:59)
[2018-10-04] MEDS ORDERED: IBUPROFEN PO PRN (09:59)
[2018-10-04] MEDS ORDERED: D50W (25GM) Syringe IV PRN (10:03)
[2018-10-04] MEDS ORDERED: SODIUM CHLORIDE FLUSH SYRINGE 10 ML IV PRN (10:05)
[2018-10-04] MEDS ORDERED: ZOFRAN IV PRN (10:05)
[2018-10-04] MEDS ORDERED: TYLENOL PO PRN (10:05)
[2018-10-04] MEDS ORDERED: HumaLOG SUB-Q SCH (11:30)
--- NOTE | 2018-10-04 12:40 | Consultation ---
History of Present Illness - Reason for Consult Consult date: 10/04/18 end stage renal disease Requesting physician: LOBO ESTRADA - History of Present Illness Patient presents to the emergency department last night for evaluation of multiple complaints. She states her primary problem is recurrent chest pain which goes across her chest feels sharp and ON movement. It is associated with nonproductive cough. It is not clearly pleuritic. It does not radiate elsew here. Apparently patient said a nuclear perfusion study within the last month which did not show evidence of ischemia. She has chronically elevated troponins. She missed her dialysis on Friday. She states that she hurts all over in addition. She did have some complaints of shortness of breath when she came. However states that it is better at this time. She is currently lying flat without any difficulty. She is also on room air at this time. She currently undergoes dialysis at [facility] on [address] on MWF schedule. Patient states that she missed her dialysis on Friday Past History Past Medical History: diabetes, dialysis, hypertension, other (peripheral vascular disease) Past Surgical History: Other (history of PermCath placement. History of right metatarsal amputation) Family history: no significant family history Medications and Allergies Allergies Allergy/AdvReac Type Severity Reaction Status Date / Time amoxicillin Allergy Unknown Verified 07/03/18 20:57 Penicillins Allergy Unknown Verified 05/19/18 13:02 tramadol Allergy Unknown Verified 07/03/18 20:57 IV contrast Allergy Rash Uncoded 01/15/17 17:55 Home Medications Medication Instructions Recorded Confirmed Last Taken Type ALBUTEROL Inhaler (OR & NICU) 2 puff IH Q6H PRN 05/19/18 10/04/18 Unknown History [ProAir HFA Inhaler] Lispro Insulin [Humalog] 15 unit SUB-Q TID 07/26/18 10/04/18 07/19/18 History Ibuprofen [Motrin 600 MG tab] 600 mg PO Q8H PRN 08/26/18 10/04/18 Unknown History ALBUTEROL NEB's [Proventil 0.083% 2.5 mg IH QID PRN #30 nebu 08/31/18 10/04/18 Unknown Rx NEBS] ALPRAZolam [Xanax TAB] 0.25 mg PO Q8H PRN #12 tablet 08/31/18 10/04/18 Unknown Rx AtorvaSTATin [Lipitor] 20 mg PO DAILY #30 tablet 08/31/18 10/04/18 Unknown Rx Fluticasone [Flonase] 1 spray NS QDAY PRN #30 bottle 08/31/18 10/04/18 Unknown Rx Insulin Glargine [Lantus VIAL] 25 units SUB-Q QHS #1 vial 08/31/18 10/04/18 Un known Rx Lisinopril [Zestril TAB] 40 mg PO QDAY #30 tablet 08/31/18 10/04/18 Unknown Rx Metoprolol [Lopressor TAB] 50 mg PO BID #60 tablet 08/31/18 10/04/18 Unknown Rx Zolpidem [Ambien] 5 mg PO QHS PRN #10 tablet 08/31/18 10/04/18 Unknown Rx amLODIPine [Norvasc] 10 mg PO DAILY #30 tablet 08/31/18 10/04/18 Unknown Rx cloNIDine-TTS PATCH [Catapres-Tts 0.3 mg TD QWEEK #4 patch 08/31/18 10/04/18 Unknown Rx Patch] hydrALAZINE [Apresoline TAB] 100 mg PO TID #90 tab 08/31/18 10/04/18 Unknown Rx levoFLOXacin [Levaquin TAB] 500 mg PO Q48H #5 tablet 08/31/18 10/04/18 Unknown Rx Active Meds: Active Medications Acetaminophen (Tylenol) 650 mg PO Q4H PRN PRN Reason: Pain MILD(1-3)/Fever >100.5/VENTURA Albuterol (Proventil) 2.5 mg IH Q4H PRN PRN Reason: SHORTNESS OF BREATH/WHEEZING Amlodipine Besylate (Norvasc) 10 mg PO DAILY RADHA Atorvastatin Calcium (Lipitor) 20 mg PO DAILY [facility] Dextrose (D50w (25gm) Syringe) 50 ml IV PRN PRN PRN Reason: Hypoglycemia Fluticasone Propionate (Flonase) 50 mcg NS QDAY PRN PRN Reason: Congestion Hydralazine HCl (Apresoline) 10 mg IV Q4H PRN PRN Reason: BP >160/100 Ibuprofen (Motrin) 600 mg PO Q8H PRN PRN Reason: Pain Insulin Glargine (Lantus) 25 units SUB-Q QHS RADHA Insulin Human Lispro (Humalog) 15 unit SUB-Q AC RADHA Insulin Human Lispro (Humalog) 0 unit SUB-Q ACHS RADHA; Protocol Lisinopril (Zestril) 40 mg PO QDAY RADHA Ondansetron HCl (Zofran) 4 mg IV Q8H PRN PRN Reason: Nausea And Vomiting Sodium Chloride (Sodium Chloride Flush Syringe 10 Ml) 10 ml IV BID RADHA Sodium Chloride (Sodium Chloride Flush Syringe 10 Ml) 10 ml IV PRN PRN PRN Reason: LINE FLUSH Review of Systems All systems: negative (negative except as noted above) Exam - Vital Signs Vital signs: Vital Signs Temp Pulse Resp BP Pulse Ox 98.3 F 101 H 18 192/84 93 10/04/18 02:05 10/04/18 02:05 10/04/18 02:05 10/04/18 02:05 10/04/18 02:05 - General Appearance General appearance: well-developed, well-nourished, appears stated age EENT: PERRL, mucous membranes moist Neck: Present: neck supple, trachea midline, Other (right IJ PermCath in place). Absent: JVD/HJR, Masses Respiratory: Ronchi (few scattered rhonchi) Heart: regular, normal heart rate, S1S2, no murmurs Gastrointestinal: Present: normal, normoactive bowel sounds Integumentary: other (1+ edema. Right TMA) Results - Lab Results 10/04/18 02:45 10/04/18 02:45 Most recent lab results Calcium 8.6 mg/dL (8.4-10.2) 10/04/18 02:45 Phosphorus 5.20 mg/dL (2.5-4.5) H 10/04/18 06:58 Assessment and Plan Impression * Chest pain * End-stage renal disease on maintenance hemodialysis * Mild volume overload * Uncontrolled hypertension * Noncompliance * Diabetes * Anemia secondary to ESRD * Peripheral vascular disease Recommendations * Patient does have evidence of mild volume overload. However she is lying flat without any discomfort and currently on room air. No urgent indication for dialysis today. Plan to dialyze her tomorrow morning * Patient has been given Kayexalate for her mild hyperkalemia * Adjust diet and meds for ESRD state * Binders with meals * Adjust antihypertensive meds * Patient advised regarding compliance with her dialysis treatments * Thank you very much for the consultation. Shall follow along with you
[2018-10-04] MEDS ORDERED: PROCRIT IV PRN (12:45)
[2018-10-04] MEDS ORDERED: NACL 0.9% 100 ML IV PRN (12:45)
[2018-10-04] MEDS: HumaLOG SUB-Q SCH ×4 (13:01→21:45)
[2018-10-04] MEDS: CATAPRES PO SCH ×2 (13:11→21:43)
[2018-10-04] MEDS: NORVASC PO SCH (13:11)
[2018-10-04] MEDS: ZESTRIL PO SCH (13:11)
[2018-10-04] MEDS ORDERED: LASIX 100 MG in NACL 0.9% 50 ML IV ONE ×2 (13:40→14:49)
--- NOTE | 2018-10-04 14:30 | Consultation ---
History of Present Illness Consult date: 10/04/18 Consult reason: abnormal cardiac enzymes, chest pain History of present illness: Patient was admitted with sharp anterior chest pain radiating across chest on and off transiently prior to presentation to ER,improved after admission,not related to exertion,lasting only few seconds at a time.No chest pain since this AM. Past History Past Medical History: diabetes, dialysis, hypertension, other (peripheral vascular disease) Past Surgical History: Other (history of PermCath placement. History of right metatarsal amputation) Family history: no significant family history Medications and Allergies Allergies Allergy/AdvReac Type Severity Reaction Status Date / Time amoxicillin Allergy Unknown Verified 07/03/18 20:57 Penicillins Allergy Unknown Verified 05/19/18 13:02 tramadol Allergy Unknown Verified 07/03/18 20:57 IV contrast Allergy Rash Uncoded 01/15/17 17:55 Home Medications Medication Instructions Recorded Confirmed Last Taken Type ALBUTEROL Inhaler (OR & NICU) 2 puff IH Q6H PRN 05/19/18 10/04/18 Unknown History [ProAir HFA Inhaler] Lispro Insulin [Humalog] 15 unit SUB-Q TID 07/26/18 10/04/18 07/19/18 History Ibuprofen [Motrin 600 MG tab] 600 mg PO Q8H PRN 08/26/18 10/04/18 Unknown History ALBUTEROL NEB's [Proventil 0.083% 2.5 mg IH QID PRN #30 nebu 08/31/18 10/04/18 Unknown Rx NEBS] ALPRAZolam [Xanax TAB] 0.25 mg PO Q8H PRN #12 tablet 08/31/18 10/04/18 Unknown Rx AtorvaSTATin [Lipitor] 20 mg PO DAILY #30 tablet 08/31/18 10/04/18 Unknown Rx Fluticasone [Flonase] 1 spray NS QDAY PRN #30 bottle 08/31/18 10/04/18 Unknown Rx Insulin Glargine [Lantus VIAL] 25 units SUB-Q QHS #1 vial 08/31/18 10/04/18 Unknown Rx Lisinopril [Zestril TAB] 40 mg PO QDAY #30 tablet 08/31/18 10/04/18 Unknown Rx Metoprolol [Lopressor TAB] 50 mg PO BID #60 tablet 08/31/18 10/04/18 Unknown Rx Zolpidem [Ambien] 5 mg PO QHS PRN #10 tablet 08/31/18 10/04/18 Unknown Rx amLODIPine [Norvasc] 10 mg PO DAILY #30 tablet 08/31/18 10/04/18 Unknown Rx cloNIDine-TTS PATCH [Catapres-Tts 0.3 mg TD QWEEK #4 patch 08/31/18 10/04/18 Unknown Rx Patch] hydrALAZINE [Apresoline TAB] 100 mg PO TID #90 tab 08/31/18 10/04/18 Unknown Rx levoFLOXacin [Levaquin TAB] 500 mg PO Q48H #5 tablet 08/31/18 10/04/18 Unknown Rx Active Meds: Active Medications Acetaminophen (Tylenol) 650 mg PO Q4H PRN PRN Reason: Pain MILD(1-3)/Fever >100.5/VENTURA Albuterol (Proventil) 2.5 mg IH Q4H PRN PRN Reason: SHORTNESS OF BREATH/WHEEZING Amlodipine Besylate (Norvasc) 10 mg PO DAILY [facility] Last Admin: 10/04/18 13:11 Dose: 10 mg Documented by: Atorvastatin Calcium (Lipitor) 20 mg PO DAILY [facility] Last Admin: 10/04/18 13:12 Dose: 20 mg Documented by: Clonidine HCl (Catapres) 0.2 mg PO TID [facility] Last Admin: 10/04/18 13:11 Dose: 0.2 mg Documented by: Dextrose (D50w (25gm) Syringe) 50 ml IV PRN PRN PRN Reason: Hypoglycemia Epoetin Frank (Procrit) 10,000 unit IV LUIS PRN PRN Reason: hemodialysis Fluticasone Propionate (Flonase) 50 mcg NS QDAY PRN PRN Reason: Congestion Heparin Sodium (Porcine) (Heparin) 5,000 unit SUB-Q Q8HR [facility] Hydralazine HCl (Apresoline) 10 mg IV Q4H PRN PRN Reason: BP >160/100 Sodium Chloride (Nacl 0.9%) 100 mls @ 999 mls/hr IV LUIS PRN PRN Reason: Hypotension Insulin Human Lispro (Humalog) 0 unit SUB-Q ACHS [facility]; Protocol Last Admin: 10/04/18 13:01 Dose: Not Given Documented by: Insulin Human Lispro (Humalog) 6 unit SUB-Q AC [facility] Lisinopril (Zestril) 40 mg PO QDAY [facility] Last Admin: 10/04/18 13:11 Dose: 40 mg Documented by: Nitroglycerin (Nitro-Bid 2%) 1 inch TP QIDNTG [facility]; Protocol Ondansetron HCl (Zofran) 4 mg IV Q8H PRN PRN Reason: Nausea And Vomiting Sodium Chloride (Sodium Chloride Flush Syringe 10 Ml) 10 ml IV BID [facility] Sodium Chloride (Sodium Chloride Flush Syringe 10 Ml) 10 ml IV PRN PRN PRN Reason: LINE FLUSH Physical Examination Vital Signs Temp Pulse Resp BP Pulse Ox 98.3 F 101 H 18 192/84 93 10/04/18 02:05 10/04/18 02:05 10/04/18 02:05 10/04/18 02:05 10/04/18 02:05 General appearance: no acute distress HEENT: Positive: PERRL Neck: Positive: trachea midline Cardiac: Positive: Reg Rate and Rhythm. Negative: Audible Murmur Lungs: Positive: Decreased Breath Sounds Neuro: Positive: Grossly Intact Skin: Negative: Rash Extremities: Absent: edema Results 10/04/18 02:45 10/04/18 02:45 Cardiac Enzymes 10/04/18 Range/Units 07:05 AST 27 (5-40) units/L Coagulation 10/04/18 Range/Units 07:05 PT 13.4 (12.2-14.9) Sec. INR 0.98 (0.87-1.13) APTT 32.2 (24.2-36.6) Sec. Lipids 10/04/18 Range/Units 02:45 Triglycerides 136 (2-149) mg/dL Cholesterol 136 (50-199) mg/dL HDL Cholesterol 42 (40-59) mg/dL Cholesterol/HDL Ratio 3.23 % CBC 10/04/18 Range/Units 02:45 WBC 6.7 (4.5-11.0) K/mm3 RBC 3.80 (3.65-5.03) M/mm3 Hgb 10.5 (10.1-14.3) gm/dl Hct 33.3 (30.3-42.9) % Plt Count 205 (140-440) K/mm3 Lymph # 1.1 L (1.2-5.4) K/mm3 [place] # 0.5 (0.0-0.8) K/mm3 Eos # 0.2 (0.0-0.4) K/mm3 Baso # 0.1 (0.0-0.1) K/mm3 Comprehensive Metabolic Panel 10/04/18 10/04/18 Range/Units 02:45 07:05 Sodium 138 (137-145) mmol/L Potassium 5.3 H (3.6-5.0) mmol/L Chloride 98.1 (98-107) mmol/L Carbon Dioxide 26 (22-30) mmol/L BUN 47 H (7-17) mg/dL Creatinine 9.8 H (0.7-1.2) mg/dL Glucose 234 H (65-100) mg/dL Calcium 8.6 (8.4-10.2) mg/dL Direct Bilirubin 0.2 (0-0.2) mg/dL Indirect Bilirubin 0.4 mg/dL AST 27 (5-40) units/L ALT 21 (7-56) units/L Alkaline Phosphatase 133 H (35-129) units/L Total Protein 7.1 (6.3-8.2) g/dL Albumin 3.9 (3.9-5) g/dL Laboratory Tests 10/04/18 10/04/18 10/04/18 02:45 05:23 07:05 Troponin T 0.512 H* 0.527 H* NT-Pro-B Natriuret Pep Triglycerides 136 Cholesterol 136 LDL Cholesterol Direct 78 HDL Cholesterol 42 Cholesterol/HDL Ratio 3.23 10/04/18 07:05 Troponin T NT-Pro-B Natriuret Pep 98384 H Triglycerides Cholesterol LDL Cholesterol Direct HDL Cholesterol Cholesterol/HDL Ratio EKG interpretations - Telemetry EKG Rhythm: Sinus Rhythm Assessment and Plan Patient with hx. of D.M,HTN,ESRD on HD since 04/2018,with pharmacologic MPI in 08/2018 showing no significant ischemia,was evalauted during last admission and was recommended medical therapy. Admitted with recurrent atypical chest pain and chronically elevated troponin levels. Discussed with patient,was given option of continued medical theraly vs diagnostic cardiac catheterization.Patient does not want to have cardiac cath at this time.Would control her B.P better and continued medical therapy.
[2018-10-04] MEDS: HEPARIN SUB-Q SCH ×3 (14:41→22:45)
[2018-10-04] MEDS: NITRO-BID 2% TP SCH ×2 (14:41→17:02)
[2018-10-04] MEDS ORDERED: LASIX IV NR (16:00)
[2018-10-04 17:23] LABS: Bacteria,Urine 1+ /HPF (Negative); Bilirubin,Urine NEG (Negative); Blood,Urine NEG (Negative); Color,Urine Yellow (Yellow); Mucus,Urine FEW /HPF; Urobilinogen,Urine < 2.0 mg/dL (<2.0)
[2018-10-04 17:25] LABS: Protein,Urine >500 mg/dL (Negative)
[2018-10-04 17:26] LABS: Amphetamine Screen,Urine PRESUMPTIVE NEGATIVE; Benzodiazepines Screen,Urine PRESUMPTIVE NEGATIVE; Cannabinoid Screen,Urine PRESUMPTIVE NEGATIVE; Cocaine Screen,Urine PRESUMPTIVE NEGATIVE; Methadone Screen,Urine PRESUMPTIVE NEGATIVE; Opiate Screen,Urine PRESUMPTIVE NEGATIVE
--- NOTE | 2018-10-04 21:10 | Consultation ---
CARDIOLOGY CONSULTATION REPORT HISTORY OF PRESENT ILLNESS: The patient is a 48-year-old female with a history of longstanding diabetes mellitus of more than 20 years. Also, history of hypertension and history of psoriasis who was started on hemodialysis in April of this year. The patient presented to the Emergency Room with chest pain, which appears to be atypical. The patient was noted to have elevated troponin since cardiac consultation. The patient says she is taking her medications regularly. The patient's blood pressure was elevated at the time of presentation 182/108. The patient was admitted in August of this year, underwent pharmacological myocardial perfusion imaging, which was performed on 08/29/2018. It is technically limited study. No obvious significant ischemia noted. But mild diffuse decrease in the anterior region from the breast attenuation and increased gut uptake and stress was noted, ejection fraction of 44% noted. The patient was continued on medical therapy at that point. The patient is getting her dialysis through a port in the right subclavian area. The patient presented to the Emergency Room with multiple complaints and recurrent chest pain, which is worse on movement. She missed her dialysis on Friday and she has difficulty breathing on lying down flat. Apparently, she is taking her medications regularly. Also to be noted she has history of 2 toes amputated in the right foot in the past. FINAL IMPRESSION: Discussed with the patient about cardiac catheterization for definitive diagnosis and treatment because of her recurrent chest pain; however, the patient is reluctant to consider any invasive procedure at this time. We will continue medical therapy. Reviewed her medications. JOB# [id number] PATIENCE/OBIE
[2018-10-04] MEDS: SODIUM CHLORIDE FLUSH SYRINGE 10 ML IV SCH (21:44)
[2018-10-04] MEDS ORDERED: LANTUS SUB-Q SCH (22:00)
[2018-10-05] MEDS: DELTASONE PO SCH ×3 (00:42→12:18)
[2018-10-05] MEDS: APRESOLINE IV PRN ×2 (05:46→18:32)
[2018-10-05] MEDS: NITRO-BID 2% TP SCH ×2 (05:47→09:57)
[2018-10-05 06:00] LABS: Calcium 8.3 mg/dL (8.4-10.2)
[2018-10-05] MEDS: HEPARIN SUB-Q SCH ×4 (06:25→21:42)
[2018-10-05] MEDS: HumaLOG SUB-Q SCH ×7 (07:54→21:34)
--- NOTE | 2018-10-05 08:23 | Progress Note ---
Assessment and Plan Impression * Chest pain * End-stage renal disease on maintenance hemodialysis * Mild volume overload * Uncontrolled hypertension * Noncompliance * Diabetes * Anemia secondary to ESRD * Peripheral vascular disease Recommendations * Serum potassium elevated at 7.6 this morning. * Arrange for stat hemodialysis treatment. Spoke with dialysis nurse . Patient to be taken to dialysis [facility]. * Clinically she does have mild CHF. Remove fluid as tolerated. * Repeat potassium level after dialysis. Would give medical treatment if potassium is still elevated * Adjust diet and meds for ESRD state * Binders with meals * Adjust antihypertensive meds * Patient advised regarding compliance with her dialysis treatments Subjective Date of service: 10/05/18 Interval history: Patient just completed his CT angiogram. Patient seen in the radiology suite. She does still have some shortness of breath. Denies any nausea or vomiting. Objective - Vital Signs Vital signs: Vital Signs - 12hr 10/04/18 10/05/18 10/05/18 21:43 00:11 03:50 Temperature 98.0 F 97.0 F L Pulse Rate 78 68 84 Respiratory 20 18 Rate Blood Pressure 145/68 152/82 183/101 O2 Sat by Pulse 90 91 Oximetry 10/05/18 10/05/18 10/05/18 05:46 05:47 07:45 Temperature 97.5 F L Pulse Rate Respiratory Rate Blood Pressure 183/101 183/101 O2 Sat by Pulse Oximetry 10/05/18 07:46 Temperature Pulse Rate 83 Respiratory 20 Rate Blood Pressure 163/80 O2 Sat by Pulse 95 Oximetry - General Appearance General appearance: well-developed, well-nourished, appears stated age EENT: PERRL, mucous membranes moist Neck: no JVD, no thyromegaly, no carotid bruit, supple, other (right IJ PermCath in place) Respiratory: Present: Clear to Ascultation Cardiology: regular, normal heart rate, S1S2, no murmurs Gastrointestinal: normal, normoactive bowel sounds Integumentary: other (1+ edema. Right trans metatarsal amputation) - Lab 10/04/18 02:45 10/05/18 05:00 Most recent lab results Calcium 8.3 mg/dL (8.4-10.2) L 10/05/18 05:00 Phosphorus 5.20 mg/dL (2.5-4.5) H 10/04/18 06:58 Medications & Allergies - Medications Allergies/Adverse Reactions: Allergies amoxicillin Allergy (Verified 07/03/18 20:57) Unknown Penicillins Allergy (Verified 05/19/18 13:02) Unknown tramadol Allergy (Verified 07/03/18 20:57) Unknown IV contrast Allergy (Uncoded 01/15/17 17:55) Rash Home Medications: Home Medications Medication Instructions Recorded Confirmed Last Taken Type ALBUTEROL Inhaler (OR & NICU) 2 puff IH Q6H PRN 05/19/18 10/04/18 Unknown History [ProAir HFA Inhaler] Lispro Insulin [Humalog] 15 unit SUB-Q TID 07/26/18 10/04/18 07/19/18 History Ibuprofen [Motrin 600 MG tab] 600 mg PO Q8H PRN 08/26/18 10/04/18 Unknown History ALBUTEROL NEB's [Proventil 0.083% 2.5 mg IH QID PRN #30 nebu 08/31/18 10/04/18 U nknown Rx NEBS] ALPRAZolam [Xanax TAB] 0.25 mg PO Q8H PRN #12 tablet 08/31/18 10/04/18 Unknown Rx AtorvaSTATin [Lipitor] 20 mg PO DAILY #30 tablet 08/31/18 10/04/18 Unknown Rx Fluticasone [Flonase] 1 spray NS QDAY PRN #30 bottle 08/31/18 10/04/18 Unknown Rx Insulin Glargine [Lantus VIAL] 25 units SUB-Q QHS #1 vial 08/31/18 10/04/18 Unknown Rx Lisinopril [Zestril TAB] 40 mg PO QDAY #30 tablet 08/31/18 10/04/18 Unknown Rx Metoprolol [Lopressor TAB] 50 mg PO BID #60 tablet 08/31/18 10/04/18 Unknown Rx Zolpidem [Ambien] 5 mg PO QHS PRN #10 tablet 08/31/18 10/04/18 Unknown Rx amLODIPine [Norvasc] 10 mg PO DAILY #30 tablet 08/31/18 10/04/18 Unknown Rx cloNIDine-TTS PATCH [Catapres-Tts 0.3 mg TD QWEEK #4 patch 08/31/18 10/04/18 Unknown Rx Patch] hydrALAZINE [Apresoline TAB] 100 mg PO TID #90 tab 08/31/18 10/04/18 Unknown Rx levoFLOXacin [Levaquin TAB] 500 mg PO Q48H #5 tablet 08/31/18 10/04/18 Unknown Rx Active Medications: Generic Name Dose Route Start Last Admin Trade Name Freq PRN Reason Stop Dose Admin Acetaminophen 650 mg 10/04/18 10:05 10/04/18 21:51 Tylenol PO 650 mg Q4H PRN Administration Pain MILD(1-3)/Fever >100.5/VENTURA Albuterol 2.5 mg 10/04/18 09:59 Proventil IH Q4H PRN SHORTNESS OF BREATH/WHEEZING Amlodipine Besylate 10 mg 10/04/18 10:00 10/04/18 13:11 Norvasc PO 10 mg DAILY RADHA Administration Atorvastatin Calcium 20 mg 10/04/18 10:00 10/04/18 13:12 Lipitor PO 20 mg DAILY RADHA Administration Clonidine HCl 0.2 mg 10/04/18 14:00 10/04/18 21:43 Catapres PO 0.2 mg TID RADHA Administration Dextrose 50 ml 10/04/18 10:03 D50w (25gm) Syringe IV PRN PRN Hypoglycemia Diphenhydramine HCl 50 mg 10/05/18 12:00 Benadryl IV 10/05/18 23:00 ONCE RADHA Epoetin Frank 10,000 unit 10/04/18 12:45 Procrit IV LUIS PRN hemodialysis Fluticasone Propionate 50 mcg 10/04/18 09:59 Flonase NS QDAY PRN Congestion Heparin Sodium (Porcine) 5,000 unit 10/04/18 14:00 10/05/18 06:25 Heparin SUB-Q Not Given Q8HR [facility] Hydralazine HCl 10 mg 10/04/18 10:03 10/05/18 05:46 Apresoline IV 10 mg Q4H PRN Administration BP >160/100 Sodium Chloride 100 mls @ 999 mls/hr 10/04/18 12:45 Nacl 0.9% IV LUIS PRN Hypotension Insulin Human Lispro 0 unit 10/04/18 11:30 10/05/18 07:54 Humalog SUB-Q Not Given ACHS [facility] Protocol Insulin Human Lispro 6 unit 10/04/18 13:09 10/04/18 17:16 Humalog SUB-Q 6 unit AC RADHA Administration Lisinopril 40 mg 10/04/18 10:00 10/04/18 13:11 Zestril PO 40 mg QDAY RADHA Administration Nitroglycerin 1 inch 10/04/18 14:00 10/05/18 05:47 Nitro-Bid 2% TP 1 inch QIDNTG RADHA Administration Protocol Ondansetron HCl 4 mg 10/04/18 10:05 Zofran IV Q8H PRN Nausea And Vomiting Prednisone 50 mg 10/05/18 00:00 10/05/18 05:48 Deltasone PO 10/05/18 12:01 50 mg Q6HR RADHA Administration Sodium Chloride 10 ml 10/04/18 22:00 10/04/18 21:44 Sodium Chloride Flush Syringe 10 Ml IV 10 ml BID RADHA Administration Sodium Chloride 10 ml 10/04/18 10:05 Sodium Chloride Flush Syringe 10 Ml IV PRN PRN LINE FLUSH
[2018-10-05] MEDS: CATAPRES PO SCH ×3 (09:56→21:33)
[2018-10-05] MEDS: NORVASC PO SCH (09:56)
[2018-10-05] MEDS: ZESTRIL PO SCH (09:56)
[2018-10-05] MEDS: SODIUM CHLORIDE FLUSH SYRINGE 10 ML IV SCH ×2 (09:57→21:39)
[2018-10-05] MEDS ORDERED: BENADRYL IV SCH (10:00)
--- NOTE | 2018-10-05 10:13 | Cat Scan Report ---
CT of the chest: Elevated d-dimer, SOB. Following IV administration of contrast transverse images were obtained through the chest using pulmonary embolus protocol. Coronal and sagittal 2-D reformatted images as well as a MIP set of images are included. The pulmonary vascular structures are adequately opacified. No filling defects noted. There is good visualization of the cardiac chambers and thoracic aorta. The cardiac chambers are grossly normal in size with no filling defects. There is a moderate pericardial effusion. The thoracic aorta is normal in size and contour. No significant hilar or mediastinal adenopathy appreciated. There are bilateral pleural effusions significantly larger on the right and left. There is an area of peripheral atelectasis in the lateral left upper lobe as well as in the lateral left lower lobe and right lower lobe. Compared to the patient's prior exam on August 26, 2018 the pleural effusions have increased however the infiltrates or areas of atelectasis in the upper lobes have improved with worsening in the right lower lobe. The pericardial effusion remains roughly the same. There is however some edema in the body wall on the current exam which was not apparent previously. There is a persistent circumscribed mass in the lateral right breast which is contiguous with the skin and has an attenuation consistent with fluid. Impression: 1. No pulmonary embolus. 2. Interval increase in bilateral pleural effusions and body wall edema. 3. Persistent pericardial effusion. 4. Bilateral pulmonary atelectasis with areas of both improvement and worsening compared to prior exam as described above. 5. Probably benign right pulmonary mass. Correlation with ultrasound/mammography however is recommended.
--- NOTE | 2018-10-05 10:37 | Progress Note ---
Assessment and Plan Assessment and plan: 48-year-old woman with a history of end-stage renal disease who presents with recurrent chest pain, recent negative stress test last month Plan cont HD for UF per nephrology, 4L take off on 10/05 -cardiology consulted to eval for elevated trop by ED, patient had negative stress test last month. She also has preserved EF on echo -Chest pain most likely due to hypertensive urgency due to nonadherence to her medications -obtain CTA chest, d dimer elevated -UF to remove excess fluid -optimize insulin, check A1c -counseled on improved adherence permacath area is tender, no obvious sign of infection on my exam, will obtain blood cultures Diagnoses Hypertensive urgency hyperkalemia Nonspecific elevation of troponin Elevated d-dimer Fluid overload DM, insulin dependent Acute on chronic diastolic CHF -Nonadherence to medications and dialysis DVT ppx heparin sq History Interval history: c/o pain around her PC c/o sob, cp and bipedal edema no cough no fever no vomiting Hospitalist Physical - Physical exam Narrative exam: General appearance: Present: no acute distress, well-nourished - EENT Eyes: Present: PERRL ENT: hearing intact, clear oral mucosa - Neck Neck: Present: supple, normal ROM - Respiratory Respiratory effort: normal Respiratory: bilateral: rales - Cardiovascular Heart Sounds: Present: S1 & S2. Absent: rub, click - Extremities Extremities: pulses symmetrical Extremity abnormal: edema (pitting bipedal, 3 plus), other (left TMA) Peripheral Pulses: within normal limits - Abdominal General gastrointestinal: Present: soft, non-tender, non-distended, normal bowel sounds Female genitourinary: Present: normal - Integumentary Integumentary: Present: clear, warm, dry - Musculoskeletal Musculoskeletal: gait normal, strength equal bilaterally - Psychiatric Psychiatric: appropriate mood/affect, intact judgment & insight - Neurologic Neurologic: CNII-XII intact, moves all extremities - Constitutional Vitals: Temp Pulse Resp BP Pulse Ox 97.5 F L 89 20 167/89 95 10/05/18 09:13 10/05/18 10:00 10/05/18 09:13 10/05/18 10:00 10/05/18 07:46 General appearance: Present: no acute distress Results - Labs CBC & Chem 7: 10/04/18 02:45 10/05/18 05:00 Labs: Laboratory Last Values WBC 6.7 K/mm3 (4.5-11.0) 10/04/18 02:45 RBC 3.80 M/mm3 (3.65-5.03) 10/04/18 02:45 Hgb 10.5 gm/dl (10.1-14.3) 10/04/18 02:45 Hct 33.3 % (30.3-42.9) 10/04/18 02:45 MCV 88 fl (79-97) 10/04/18 02:45 MCH 28 pg (28-32) 10/04/18 02:45 MCHC 32 % (30-34) 10/04/18 02:45 RDW 17.8 % (13.2-15.2) H 10/04/18 02:45 Plt Count 205 K/mm3 (140-440) 10/04/18 02:45 Lymph % (Auto) 15.8 % (13.4-35.0) 10/04/18 02:45 [place] % (Auto) 7.8 % (0.0-7.3) H 10/04/18 02:45 Eos % (Auto) 2.8 % (0.0-4.3) 10/04/18 02:45 Baso % (Auto) 1.1 % (0.0-1.8) 10/04/18 02:45 Lymph # 1.1 K/mm3 (1.2-5.4) L 10/04/18 02:45 [place] # 0.5 K/mm3 (0.0-0.8) 10/04/18 02:45 Eos # 0.2 K/mm3 (0.0-0.4) 10/04/18 02:45 Baso # 0.1 K/mm3 (0.0-0.1) 10/04/18 02:45 Seg Neutrophils % 72.5 % (40.0-70.0) H 10/04/18 02:45 Seg Neutrophils # 4.9 K/mm3 (1.8-7.7) 10/04/18 02:45 PT 13.4 Sec. (12.2-14.9) 10/04/18 07:05 INR 0.98 (0.87-1.13) 10/04/18 07:05 APTT 32.2 Sec. (24.2-36.6) 10/04/18 07:05 D-Dimer 1742.00 ng/mlDDU (0-234) H 10/04/18 07:05 Sodium 137 mmol/L (137-145) 10/05/18 05:00 Potassium 7.6 mmol/L (3.6-5.0) H* D 10/05/18 05:00 Chloride 97.9 mmol/L (98-107) L 10/05/18 05:00 Carbon Dioxide 22 mmol/L (22-30) 10/05/18 05:00 Anion Gap 25 mmol/L 10/05/18 05:00 BUN 59 mg/dL (7-17) H 10/05/18 05:00 Creatinine 11.4 mg/dL (0.7-1.2) H 10/05/18 05:00 Estimated GFR 4 ml/min 10/05/18 05:00 BUN/Creatinine Ratio 5 % 10/05/18 05:00 Glucose 193 mg/dL (65-100) H 10/05/18 05:00 POC Glucose 174 (70-105) H 10/05/18 06:11 Hemoglobin A1c 5.1 % (4-6) 10/04/18 10:16 Calcium 8.3 mg/dL (8.4-10.2) L 10/05/18 05:00 Phosphorus 5.20 mg/dL (2.5-4.5) H 10/04/18 06:58 Total Bilirubin 0.60 mg/dL (0.1-1.2) 10/04/18 07:05 Direct Bilirubin 0.2 mg/dL (0-0.2) 10/04/18 07:05 Indirect Bilirubin 0.4 mg/dL 10/04/18 07:05 AST 27 units/L (5-40) 10/04/18 07:05 ALT 21 units/L (7-56) 10/04/18 07:05 Alkaline Phosphatase 133 units/L (35-129) H 10/04/18 07:05 Troponin T 0.527 ng/mL (0.00-0.029) H* 10/04/18 07:05 NT-Pro-B Natriuret Pep 29350 pg/mL (0-450) H 10/04/18 07:05 Total Protein 7.1 g/dL (6.3-8.2) 10/04/18 07:05 Albumin 3.9 g/dL (3.9-5) 10/04/18 07:05 Albumin/Globulin Ratio 1.2 % 10/04/18 07:05 Triglycerides 136 mg/dL (2-149) 10/04/18 02:45 Cholesterol 136 mg/dL (50-199) 10/04/18 02:45 LDL Cholesterol Direct 78 mg/dL (50-130) 10/04/18 02:45 HDL Cholesterol 42 mg/dL (40-59) 10/04/18 02:45 Cholesterol/HDL Ratio 3.23 % 10/04/18 02:45 Urine Color Yellow (Yellow) 10/04/18 17:05 Urine Turbidity Slightly-cloudy (Clear) 10/04/18 17:05 Urine pH 8.0 (5.0-7.0) H 10/04/18 17:05 Ur Specific [place] 1.023 (1.003-1.030) 10/04/18 17:05 Urine Protein >500 mg/dL (Negative) 10/04/18 17:05 Urine Glucose (UA) 150 mg/dL (Negative) 10/04/18 17:05 Urine Ketones Neg mg/dL (Negative) 10/04/18 17:05 Urine Blood Neg (Negative) 10/04/18 17:05 Urine Nitrite Neg (Negative) 10/04/18 17:05 Urine Bilirubin Neg (Negative) 10/04/18 17:05 Urine Urobilinogen < 2.0 mg/dL (<2.0) 10/04/18 17:05 Ur Leukocyte Esterase Neg (Negative) 10/04/18 17:05 Urine WBC (Auto) 64.0 /HPF (0.0-6.0) H 10/04/18 17:05 Urine RBC (Auto) 8.0 /HPF (0.0-6.0) 10/04/18 17:05 U Epithel Cells (Auto) 14.0 /HPF (0-13.0) H 10/04/18 17:05 Urine Bacteria (Auto) 1+ /HPF (Negative) 10/04/18 17:05 Urine Mucus Few /HPF 10/04/18 17:05 Urine Opiates Screen Presumptive negative 10/04/18 17:05 Urine Methadone Screen Presumptive negative 10/04/18 17:05 Ur Barbiturates Screen Presumptive negative 10/04/18 17:05 Ur Phencyclidine Scrn Presumptive negative 10/04/18 17:05 Ur Amphetamines Screen Presumptive negative 10/04/18 17:05 U Benzodiazepines Scrn Presumptive negative 10/04/18 17:05 Urine Cocaine Screen Presumptive negative 10/04/18 17:05 U Marijuana (THC) Screen Presumptive negative 10/04/18 17:05 Drugs of Abuse Note Disclamer 10/04/18 17:05
--- NOTE | 2018-10-05 13:50 | Progress Note ---
Addendum entered and electronically signed by MARILEE ALMAZAN MD 10/05/18 14:35: Chest CT: No pulmonary embolism. Moderate pericardial effusion. Would order limited Echo to evaluate pericardial effusion. Original Note: Assessment and Plan Patient with hx. of D.M,HTN,ESRD on HD since 04/2018,with pharmacologic MPI in 08/2018 showing no significant ischemia,was evaluated during last admission and was recommended medical therapy. Admitted with recurrent atypical chest pain and chronically elevated troponin l evels. Discussed with patient,was given option of continued medical therapy vs diagnostic cardiac catheterization. Patient does not want to have cardiac cath at this time. Continue medical management - optimize BPs and anti-ischemic regimen - resume home lopressor and hydralazine, hold lisinopril in setting of hyperkalemia. Electrolyte management per nephrology - currently undergoing HD. The patient has been seen in conjunction with Dr. Coker who agrees with the assessment and plan of care. (1) Chest pain Current Visit: Yes Status: Acute Qualifiers: Chest pain type: unspecified Qualified Code(s): R07.9 - Chest pain, unspecified (2) Hypertensive urgency Current Visit: No Status: Acute (3) ESRD (end stage renal disease) on dialysis Current Visit: Yes Status: Chronic (4) Hyperkalemia Current Visit: Yes Status: Acute (5) Elevated troponin Current Visit: Yes Status: Chronic (6) Anemia Current Visit: Yes Status: Chronic Qualifiers: Anemia type: unspecified type Qualified Code(s): D64.9 - Anemia, unspecified (7) Diabetes Current Visit: Yes Status: Chronic (8) Hx of amputation of foot Current Visit: Yes Status: Chronic (9) History of noncompliance with medical treatment Current Visit: Yes Status: Chronic Subjective Date of service: 10/05/18 Principal diagnosis: cp Interval history: pt resting in bed, undergoing HD, c/o chest pain related to dialysis catheter site. Objective Last Vital Signs Temp 97.5 F L 10/05/18 09:13 Pulse 97 H 10/05/18 13:37 Resp 20 10/05/18 09:13 BP 187/95 10/05/18 13:37 Pulse Ox 95 10/05/18 07:46 - Physical Examination General: No Apparent Distress HEENT: Positive: PERRL Neck: Positive: trachea midline Cardiac: Positive: Reg Rate and Rhythm, S1/S2 Lungs: Positive: clear to auscultation Neuro: Positive: Grossly Intact Skin: Negative: Rash Extremities: Absent: edema - Labs and Meds Comprehensive Metabolic Panel 10/05/18 Range/Units 05:00 Sodium 137 (137-145) mmol/L Potassium 7.6 H* D (3.6-5.0) mmol/L Chloride 97.9 L (98-107) mmol/L Carbon Dioxide 22 (22-30) mmol/L BUN 59 H (7-17) mg/dL Creatinine 11.4 H (0.7-1.2) mg/dL Glucose 193 H (65-100) mg/dL Calcium 8.3 L (8.4-10.2) mg/dL - Imaging and Cardiology EKG: report reviewed, image reviewed Echo: report reviewed ( 03/2018 was TDS, EF 50-55%, abnormal diastolic function, LA mildly dilated, small pericardial effusion. )
[2018-10-05] MEDS: PERCOCET 5/325 PO PRN ×2 (14:40→21:38)
[2018-10-05] MEDS ORDERED: NACL 0.9 (PRIMING MACHINE ONLY DIALYSIS) MC ONE (15:06)
[2018-10-05] MEDS: LOPRESSOR PO SCH (21:32)
[2018-10-05] MEDS: APRESOLINE PO SCH (21:33)
[2018-10-05] MEDS: BENADRYL PO PRN (21:39)
[2018-10-06] MEDS: HEPARIN SUB-Q SCH ×3 (05:29→21:05)
[2018-10-06 06:44] LABS: Calcium 8.2 mg/dL (8.4-10.2)
[2018-10-06] MEDS: HumaLOG SUB-Q SCH ×7 (08:30→21:28)
[2018-10-06] MEDS ORDERED: NACL 0.9% 100 ML IV PRN (08:51)
--- NOTE | 2018-10-06 08:51 | Progress Note ---
Assessment and Plan Impression * Chest pain * End-stage renal disease on maintenance hemodialysis * Mild volume overload * Uncontrolled hypertension * Noncompliance * Diabetes * Anemia secondary to ESRD * Peripheral vascular disease Recommendations * Serum potassium is much better at 5.0. * Volume status is improving however she still has some peripheral edema * Schedule patient for next dialysis treatment today especially as she missed a treatment last week and her K is high normal at this time * Continue dialysis on MWF schedule as well * Cardiology workup in progress * Adjust diet and meds for ESRD state * Binders with meals * Adjust antihypertensive meds * Patient advised regarding compliance with her dialysis treatments Subjective Date of service: 10/06/18 Principal diagnosis: cp Interval history: Patient is comfortable today. Uneventful hemodialysis yesterday. Shortness of breath is improving. Objective - Vital Signs Vital signs: Vital Signs - 12hr 10/05/18 10/05/18 10/05/18 21:32 21:33 22:48 Temperature 98.4 F Pulse Rate 87 87 75 Respiratory 20 Rate Blood Pressure 178/82 178/82 149/71 O2 Sat by Pulse 92 Oximetry 10/06/18 04:53 Temperature 98.7 F Pulse Rate 77 Respiratory 16 Rate Blood Pressure 149/66 O2 Sat by Pulse 94 Oximetry - General Appearance General appearance: well-developed, well-nourished, appears stated age EENT: PERRL, mucous membranes moist Neck: no JVD, no thyromegaly, no carotid bruit, supple, other (right IJ PermCath in place) Respiratory: Present: Clear to Ascultation Cardiology: regular, normal heart rate Gastrointestinal: normal, normoactive bowel sounds Integumentary: other (1+ edema. Right TMA) - Lab 10/04/18 02:45 10/06/18 04:32 Most recent lab results Calcium 8.2 mg/dL (8.4-10.2) L 10/06/18 04:32 Phosphorus 5.20 mg/dL (2.5-4.5) H 10/04/18 06:58 Medications & Allergies - Medications Allergies/Adverse Reactions: Allergies amoxicillin Allergy (Verified 07/03/18 20:57) Unknown Penicillins Allergy (Verified 05/19/18 13:02) Unknown tramadol Allergy (Verified 07/03/18 20:57) Unknown IV contrast Allergy (Uncoded 01/15/17 17:55) Rash Home Medications: Home Medications Medication Instructions Recorded Confirmed Last Taken Type ALBUTEROL Inhaler (OR & NICU) 2 puff IH Q6H PRN 05/19/18 10/04/18 Unknown History [ProAir HFA Inhaler] Lispro Insulin [Humalog] 15 unit SUB-Q TID 07/26/18 10/04/18 07/19/18 History Ibuprofen [Motrin 600 MG tab] 600 mg PO Q8H PRN 08/26/18 10/04/18 Unknown History ALBUTEROL NEB's [Proventil 0.083% 2.5 mg IH QID PRN #30 nebu 08/31/18 10/04/18 Unknown Rx NEBS] ALPRAZolam [Xanax TAB] 0.25 mg PO Q8H PRN #12 tablet 08/31/18 10/04/18 Unknown Rx AtorvaSTATin [Lipitor] 20 mg PO DAILY #30 tablet 08/31/18 10/04/18 Unknown Rx Fluticasone [Flonase] 1 spray NS QDAY PRN #30 bottle 08/31/18 10/04/18 Unknown Rx Insulin Glargine [Lantus VIAL] 25 units SUB-Q QHS #1 vial 08/31/18 10/04/18 Unkn own Rx Lisinopril [Zestril TAB] 40 mg PO QDAY #30 tablet 08/31/18 10/04/18 Unknown Rx Metoprolol [Lopressor TAB] 50 mg PO BID #60 tablet 08/31/18 10/04/18 Unknown Rx Zolpidem [Ambien] 5 mg PO QHS PRN #10 tablet 08/31/18 10/04/18 Unknown Rx amLODIPine [Norvasc] 10 mg PO DAILY #30 tablet 08/31/18 10/04/18 Unknown Rx cloNIDine-TTS PATCH [Catapres-Tts 0.3 mg TD QWEEK #4 patch 08/31/18 10/04/18 Unknown Rx Patch] hydrALAZINE [Apresoline TAB] 100 mg PO TID #90 tab 08/31/18 10/04/18 Unknown Rx levoFLOXacin [Levaquin TAB] 500 mg PO Q48H #5 tablet 08/31/18 10/04/18 Unknown Rx Active Medications: Generic Name Dose Route Start Last Admin Trade Name Freq PRN Reason Stop Dose Admin Acetaminophen 650 mg 10/04/18 10:05 10/04/18 21:51 Tylenol PO 650 mg Q4H PRN Administration Pain MILD(1-3)/Fever >100.5/VENTURA Albuterol 2.5 mg 10/04/18 09:59 Proventil IH Q4H PRN SHORTNESS OF BREATH/WHEEZING Amlodipine Besylate 10 mg 10/04/18 10:00 10/05/18 09:56 Norvasc PO 10 mg DAILY RADHA Administration Aspirin 81 mg 10/06/18 10:00 Baby Aspirin PO QDAY RADHA Atorvastatin Calcium 20 mg 10/04/18 10:00 10/05/18 09:57 Lipitor PO 20 mg DAILY RADHA Administration Clonidine HCl 0.2 mg 10/04/18 14:00 10/05/18 21:33 Catapres PO 0.2 mg TID RADHA Administration Dextrose 50 ml 10/04/18 10:03 D50w (25gm) Syringe IV PRN PRN Hypoglycemia Diphenhydramine HCl 25 mg 10/05/18 18:41 10/05/18 21:39 Benadryl PO 25 mg Q6H PRN Administration Itching Epoetin Frank 10,000 unit 10/04/18 12:45 Procrit IV LUIS PRN hemodialysis Fluticasone Propionate 50 mcg 10/04/18 09:59 Flonase NS QDAY PRN Congestion Heparin Sodium (Porcine) 5,000 unit 10/04/18 14:00 10/06/18 05:29 Heparin SUB-Q Not Given Q8HR [facility] Hydralazine HCl 10 mg 10/04/18 10:03 10/05/18 18:32 Apresoline IV 10 mg Q4H PRN Administration BP >160/100 Hydralazine HCl 100 mg 10/05/18 20:00 10/05/18 21:33 Apresoline PO 100 mg TID [facility] Administration Sodium Chloride 100 mls @ 999 mls/hr 10/04/18 12:45 Nacl 0.9% IV LUIS PRN Hypotension Insulin Human Lispro 0 unit 10/04/18 11:30 10/05/18 21:34 Humalog SUB-Q 3 unit ACHS [facility] Administration Protocol Insulin Human Lispro 6 unit 10/04/18 13:09 10/05/18 17:45 Humalog SUB-Q 6 unit AC RADHA Administration Metoprolol Tartrate 50 mg 10/05/18 22:00 10/05/18 21:32 Lopressor PO 50 mg BID RADHA Administration Ondansetron HCl 4 mg 10/04/18 10:05 Zofran IV Q8H PRN Nausea And Vomiting Oxycodone/Acetaminophen 1 tab 10/05/18 14:11 10/05/18 21:38 Percocet 5/325 PO 1 tab Q6H PRN Administration Pain, Moderate (4-6) Sodium Chloride 10 ml 10/04/18 22:00 10/05/18 21:39 Sodium Chloride Flush Syringe 10 Ml IV 10 ml BID RADHA Administration Sodium Chloride 10 ml 10/04/18 10:05 Sodium Chloride Flush Syringe 10 Ml IV PRN PRN LINE FLUSH
[2018-10-06] MEDS: PERCOCET 5/325 PO PRN ×2 (09:12→21:03)
[2018-10-06] MEDS: BENADRYL PO PRN ×2 (09:12→21:04)
[2018-10-06] MEDS: CATAPRES PO SCH ×3 (09:14→21:05)
[2018-10-06] MEDS: APRESOLINE PO SCH ×3 (09:14→21:04)
[2018-10-06] MEDS: LOPRESSOR PO SCH ×2 (10:00→21:04)
[2018-10-06] MEDS ORDERED: NACL 0.9 (PRIMING MACHINE ONLY DIALYSIS) MC ONE (12:29)
--- NOTE | 2018-10-06 12:40 | Progress Note ---
Addendum entered and electronically signed by MARILEE ALMAZAN MD 10/06/18 13:34: Echo: Normal LVEF of 55 to 60%, RV enlarged, small pericardial effusion.Mild pulmonary hypertension. Discussed with the patient. Original Note: Assessment and Plan Patient with hx. of D.M,HTN,ESRD on HD since 04/2018,with pharmacologic MPI in 08/2018 showing no significant ischemia,was evaluated during last admission and was recommended medical therapy. Admitted with recurrent atypical chest pain and chronically elevated troponin levels. Discussed with patient,was given option of continued medical therapy vs diagnostic cardiac catheterization. Patient does not want to have cardiac cath at this time. Pt c/o pain mostly associated with HD access site in chest wall - blood cultures obtained. Optimize BPs. Currently stable cardiac status. Nothing further to add from cardiac perspective at this time. Will follow on as needed basis. The patient has been seen in conjunction with Dr. Coker who agrees with the assessment and plan of care. (1) Chest pain Current Visit: Yes Status: Acute Qualifiers: Chest pain type: unspecified Qualified Code(s): R07.9 - Chest pain, unspecified (2) Hypertensive urgency Current Visit: No Status: Acute (3) ESRD (end stage renal disease) on dialysis Current Visit: Yes Status: Chronic (4) Hyperkalemia Current Visit: Yes Status: Acute (5) Elevated troponin Current Visit: Yes Status: Chronic (6) Anemia Current Visit: Yes Status: Chronic Qualifiers: Anemia type: unspecified type Qualified Code(s): D64.9 - Anemia, unspecified (7) Diabetes Current Visit: Yes Status: Chronic (8) Hx of amputation of foot Current Visit: Yes Status: Chronic (9) History of noncompliance with medical treatment Current Visit: Yes Status: Chronic Subjective Date of service: 10/06/18 Principal diagnosis: cp Interval history: pt resting in bed, undergoing HD, c/o chest pain related to dialysis catheter site. Objective Last Vital Signs Temp 97.6 F 10/06/18 12:24 Pulse 76 10/06/18 12:30 Resp 20 10/06/18 12:24 BP 171/82 10/06/18 12:30 Pulse Ox 94 10/06/18 04:53 - Physical Examination General: No Apparent Distress HEENT: Positive: PERRL Neck: Positive: trachea midline Cardiac: Positive: Reg Rate and Rhythm, S1/S2 Lungs: Positive: clear to auscultation Neuro: Positive: Grossly Intact Skin: Negative: Rash Extremities: Absent: edema - Labs and Meds Comprehensive Metabolic Panel 10/05/18 10/06/18 Range/Units 15:13 04:32 Sodium 134 L (137-145) mmol/L Potassium 4.3 D 5.0 (3.6-5.0) mmol/L Chloride 94.5 L (98-107) mmol/L Carbon Dioxide 24 (22-30) mmol/L BUN 40 H (7-17) mg/dL Creatinine 6.2 H (0.7-1.2) mg/dL Glucose 275 H (65-100) mg/dL Calcium 8.2 L (8.4-10.2) mg/dL - Imaging and Cardiology EKG: report reviewed, image reviewed Echo: report reviewed ( 03/2018 was TDS, EF 50-55%, abnormal diastolic function, LA mildly dilated, small pericardial effusion. )
[2018-10-06] MEDS: BABY ASPIRIN PO SCH (14:52)
[2018-10-06] MEDS: NORVASC PO SCH (14:52)
--- NOTE | 2018-10-06 15:06 | Progress Note ---
Assessment and Plan Assessment and plan: 48-year-old woman with a history of end-stage renal disease who presents with recurrent chest pain, recent negative stress test last month Plan cont HD for UF per nephrology -cardiology consulted to eval for elevated trop by ED, patient had negative stress test last month. She also has preserved EF on echo, cont med mgt -Chest pain most likely due to hypertensive urgency due to nonadherence to her medications -CTA chest neg for PE -optimize insulin, A1c 5.1 -counseled on improved adherence permacath area is tender, no obvious sign of infection on my exam, blood cultures in progress needs outpatient mammography for eval of R breast mass, likely benign per radiologist Diagnoses Hypertensive urgency hyperkalemia Nonspecific elevation of troponin Elevated d-dimer Fluid overload DM, insulin dependent Acute on chronic diastolic CHF -Nonadherence to medications and dialysis Right breast mass DVT ppx heparin sq History Interval history: c/o pain around her PC, which is emproved c/o sob, cp and bipedal edema no cough no fever no vomiting Hospitalist Physical - Physical exam Narrative exam: General appearance: Present: no acute distress, well-nourished - EENT Eyes: Present: PERRL ENT: hearing intact, clear oral mucosa - Neck Neck: Present: supple, normal ROM - Respiratory Respiratory effort: normal Respiratory: bilateral: rales - Cardiovascular Heart Sounds: Present: S1 & S2. Absent: rub, click - Extremities Extremities: pulses symmetrical Extremity abnormal: edema (pitting bipedal, 2 plus), other (left TMA) Peripheral Pulses: within normal limits - Abdominal General gastrointestinal: Present: soft, non-tender, non-distended, normal bowel sounds Female genitourinary: Present: normal - Integumentary Integumentary: Present: clear, warm, dry - Musculoskeletal Musculoskeletal: gait normal, strength equal bilaterally - Psychiatric Psychiatric: appropriate mood/affect, intact judgment & insight - Neurologic Neurologic: CNII-XII intact, moves all extremities - Constitutional Vitals: Temp Pulse Resp BP Pulse Ox 98.4 F 77 18 156/66 94 10/06/18 13:36 10/06/18 14:52 10/06/18 13:36 10/06/18 14:52 10/06/18 13:36 General appearance: Present: no acute distress Results - Labs CBC & Chem 7: 10/04/18 02:45 10/06/18 04:32 Labs: Laboratory Last Values WBC 6.7 K/mm3 (4.5-11.0) 10/04/18 02:45 RBC 3.80 M/mm3 (3.65-5.03) 10/04/18 02:45 Hgb 10.5 gm/dl (10.1-14.3) 10/04/18 02:45 Hct 33.3 % (30.3-42.9) 10/04/18 02:45 MCV 88 fl (79-97) 10/04/18 02:45 MCH 28 pg (28-32) 10/04/18 02:45 MCHC 32 % (30-34) 10/04/18 02:45 RDW 17.8 % (13.2-15.2) H 10/04/18 02:45 Plt Count 205 K/mm3 (140-440) 10/04/18 02:45 Lymph % (Auto) 15.8 % (13.4-35.0) 10/04/18 02:45 [place] % (Auto) 7.8 % (0.0-7.3) H 10/04/18 02:45 Eos % (Auto) 2.8 % (0.0-4.3) 10/04/18 02:45 Baso % (Auto) 1.1 % (0.0-1.8) 10/04/18 02:45 Lymph # 1.1 K/mm3 (1.2-5.4) L 10/04/18 02:45 [place] # 0.5 K/mm3 (0.0-0.8) 10/04/18 02:45 Eos # 0.2 K/mm3 (0.0-0.4) 10/04/18 02:45 Baso # 0.1 K/mm3 (0.0-0.1) 10/04/18 02:45 Seg Neutrophils % 72.5 % (40.0-70.0) H 10/04/18 02:45 Seg Neutrophils # 4.9 K/mm3 (1.8-7.7) 10/04/18 02:45 PT 13.4 Sec. (12.2-14.9) 10/04/18 07:05 INR 0.98 (0.87-1.13) 10/04/18 07:05 APTT 32.2 Sec. (24.2-36.6) 10/04/18 07:05 D-Dimer 1742.00 ng/mlDDU (0-234) H 10/04/18 07:05 Sodium 134 mmol/L (137-145) L 10/06/18 04:32 Potassium 5.0 mmol/L (3.6-5.0) 10/06/18 04:32 Chloride 94.5 mmol/L (98-107) L 10/06/18 04:32 Carbon Dioxide 24 mmol/L (22-30) 10/06/18 04:32 Anion Gap 21 mmol/L 10/06/18 04:32 BUN 40 mg/dL (7-17) H 10/06/18 04:32 Creatinine 6.2 mg/dL (0.7-1.2) H 10/06/18 04:32 Estimated GFR 7 ml/min 10/06/18 04:32 BUN/Creatinine Ratio 6 % 10/06/18 04:32 Glucose 275 mg/dL (65-100) H 10/06/18 04:32 POC Glucose 210 (70-105) H 10/06/18 13:44 Hemoglobin A1c 5.1 % (4-6) 10/04/18 10:16 Calcium 8.2 mg/dL (8.4-10.2) L 10/06/18 04:32 Phosphorus 5.20 mg/dL (2.5-4.5) H 10/04/18 06:58 Total Bilirubin 0.60 mg/dL (0.1-1.2) 10/04/18 07:05 Direct Bilirubin 0.2 mg/dL (0-0.2) 10/04/18 07:05 Indirect Bilirubin 0.4 mg/dL 10/04/18 07:05 AST 27 units/L (5-40) 10/04/18 07:05 ALT 21 units/L (7-56) 10/04/18 07:05 Alkaline Phosphatase 133 units/L (35-129) H 10/04/18 07:05 Troponin T 0.527 ng/mL (0.00-0.029) H* 10/04/18 07:05 NT-Pro-B Natriuret Pep 96655 pg/mL (0-450) H 10/04/18 07:05 Total Protein 7.1 g/dL (6.3-8.2) 10/04/18 07:05 Albumin 3.9 g/dL (3.9-5) 10/04/18 07:05 Albumin/Globulin Ratio 1.2 % 10/04/18 07:05 Triglycerides 136 mg/dL (2-149) 10/04/18 02:45 Cholesterol 136 mg/dL (50-199) 10/04/18 02:45 LDL Cholesterol Direct 78 mg/dL (50-130) 10/04/18 02:45 HDL Cholesterol 42 mg/dL (40-59) 10/04/18 02:45 Cholesterol/HDL Ratio 3.23 % 10/04/18 02:45 Urine Color Yellow (Yellow) 10/04/18 17:05 Urine Turbidity Slightly-cloudy (Clear) 10/04/18 17:05 Urine pH 8.0 (5.0-7.0) H 10/04/18 17:05 Ur Specific [place] 1.023 (1.003-1.030) 10/04/18 17:05 Urine Protein >500 mg/dL (Negative) 10/04/18 17:05 Urine Glucose (UA) 150 mg/dL (Negative) 10/04/18 17:05 Urine Ketones Neg mg/dL (Negative) 10/04/18 17:05 Urine Blood Neg (Negative) 10/04/18 17:05 Urine Nitrite Neg (Negative) 10/04/18 17:05 Urine Bilirubin Neg (Negative) 10/04/18 17:05 Urine Urobilinogen < 2.0 mg/dL (<2.0) 10/04/18 17:05 Ur Leukocyte Esterase Neg (Negative) 10/04/18 17:05 Urine WBC (Auto) 64.0 /HPF (0.0-6.0) H 10/04/18 17:05 Urine RBC (Auto) 8.0 /HPF (0.0-6.0) 10/04/18 17:05 U Epithel Cells (Auto) 14.0 /HPF (0-13.0) H 10/04/18 17:05 Urine Bacteria (Auto) 1+ /HPF (Negative) 10/04/18 17:05 Urine Mucus Few /HPF 10/04/18 17:05 Urine Opiates Screen Presumptive negative 10/04/18 17:05 Urine Methadone Screen Presumptive negative 10/04/18 17:05 Ur Barbiturates Screen Presumptive negative 10/04/18 17:05 Ur Phencyclidine Scrn Presumptive negative 10/04/18 17:05 Ur Amphetamines Screen Presumptive negative 10/04/18 17:05 U Benzodiazepines Scrn Presumptive negative 10/04/18 17:05 Urine Cocaine Screen Presumptive negative 10/04/18 17:05 U Marijuana (THC) Screen Presumptive negative 10/04/18 17:05 Drugs of Abuse Note Disclamer 10/04/18 17:05
[2018-10-06] MEDS: SODIUM CHLORIDE FLUSH SYRINGE 10 ML IV SCH ×2 (15:31→21:05)
[2018-10-06] MEDS: NITRO-BID 2% TP SCH (20:13)
[2018-10-07] MEDS: HEPARIN SUB-Q SCH ×2 (05:29→17:16)
[2018-10-07 06:27] LABS: Hematocrit 31.9 % (30.3-42.9); Hemoglobin 10.2 gm/dl (10.1-14.3); Mean Corpuscular HGB Conc 32 % (30-34); Mean Corpuscular Volume 87 fl (79-97); Platelet Count 181 K/mm3 (140-440); Red Blood Count 3.68 M/mm3 (3.65-5.03); Red Cell Distribution Width 17.3 % (13.2-15.2)
[2018-10-07 06:28] LABS: Basophils # (Auto) 0.1 K/mm3 (0.0-0.1); Basophils % (Auto) 0.9 % (0.0-1.8); Eosinophils % (Auto) 0.4 % (0.0-4.3); Lymphocytes # (Auto) 2.1 K/mm3 (1.2-5.4); Lymphocytes % (Auto) 32.4 % (13.4-35.0); Monocytes # (Auto) 0.5 K/mm3 (0.0-0.8); Monocytes % (Auto) 7.3 % (0.0-7.3)
[2018-10-07 06:55] LABS: Calcium 7.7 mg/dL (8.4-10.2)
[2018-10-07] MEDS: HumaLOG SUB-Q SCH ×6 (08:30→18:59)
[2018-10-07] MEDS: CATAPRES PO SCH ×2 (08:30→17:12)
[2018-10-07] MEDS: PERCOCET 5/325 PO PRN ×2 (09:11→17:19)
[2018-10-07] MEDS: BENADRYL PO PRN ×2 (09:11→17:19)
--- NOTE | 2018-10-07 10:50 | Discharge Summary ---
Providers - Providers Date of Admission: 10/04/18 11:58 Attending physician: WICHO GRIFFITH MD 10/04/18 07:06 Consult to Physician [CONS] Urgent Comment: Consulting Provider: JACKIE WATT Physician Instructions: Reason For Exam: ESRD will need D 10/04/18 09:00 Consult to Physician [CONS] Urgent Comment: Consulting Provider: APOLINAR HUNG Physician Instructions: Reason For Exam: elevated troponin, chest pain, cardiomyopathy Primary care physician: KRISTOPHER VILLANUEVA Hospitalization Condition: Stable Hospital course: 48-year-old woman with a history of end-stage renal disease who presents with recurrent chest pain, recent negative stress test last month Plan She received multiple sessions of hemodialysis, excessive fluid was removed by ultrafiltration. Potassium levels corrected after dialysis. She was seen by lead architect, she had recent negative stress test on preserved EF on echo. Medical management was recommended by them -Chest pain was most likely due to fluid overload from missed dialysis, she had pulmonary edema on imaging -She had CT angiogram of the chest was negative for PE, her A1c was 5.1, insulin doses were optimized. -She had complained about tenderness around her permacath area, on exam there was no evidence of infection, no erythema and no tenderness. Blood cultures were negative. Tenderness was most likely mechanical in origin, from pulling off keep around the permacath -She was counseled on improved adherence of dialysis, -She was advised that she needs outpatient mammography for evaluation a right breast mass, per radiologist is most likely benign. Diagnoses Hypertensive urgency hyperkalemia Nonspecific elevation of troponin Elevated d-dimer Fluid overload DM, insulin dependent Acute on chronic diastolic CHF -Nonadherence to medications and dialysis Right breast mass Disposition: - TO HOME OR SELFCARE Time spent for discharge: 33 mins Core Measure Documentation - Palliative Care Palliative Care/ Comfort Measures: Not Applicable - Core Measures Any of the following diagnoses?: none Exam - Constitutional Vitals: Temp Pulse Resp BP Pulse Ox 98.0 F 64 18 136/64 96 10/07/18 05:14 10/07/18 05:14 10/07/18 05:14 10/07/18 05:14 10/07/18 05:14 General appearance: Present: no acute distress, well-nourished - EENT Eyes: Present: PERRL ENT: hearing intact, clear oral mucosa - Neck Neck: Present: supple, normal ROM - Respiratory Respiratory effort: normal Respiratory: bilateral: CTA - Cardiovascular Heart Sounds: Present: S1 & S2. Absent: rub, click - Extremities Extremities: pulses symmetrical, No edema Peripheral Pulses: within normal limits - Abdominal General gastrointestinal: Present: soft, non-tender, non-distended, normal bowel sounds Female genitourinary: Present: normal - Integumentary Integumentary: Present: clear, warm, dry - Musculoskeletal Musculoskeletal: gait normal, strength equal bilaterally - Psychiatric Psychiatric: appropriate mood/affect, intact judgment & insight - Neurologic Neurologic: CNII-XII intact, moves all extremities Plan Follow up with: KRISTOPHER VILLANUEVA MD [Primary Care Provider] - 3-5 Days Prescriptions: RX: Insulin Glargine [Lantus VIAL] 15 units SUB-Q QHS #1 vial RX: amLODIPine [Norvasc] 10 mg PO DAILY #30 tablet RX: AtorvaSTATin [Lipitor] 20 mg PO DAILY #30 tablet RX: cloNIDine [Catapres] 0.2 mg PO TID #90 tablet RX: hydrALAZINE [Apresoline TAB] 100 mg PO TID #90 tab RX: Lispro Insulin [Humalog] 6 unit SUB-Q AC 30 Days units RX: Metoprolol [Lopressor TAB] 50 mg PO BID #60 tablet
[2018-10-07] MEDS: APRESOLINE PO SCH ×2 (11:32→17:12)
--- NOTE | 2018-10-07 12:42 | Progress Note ---
Assessment and Plan Impression * Chest pain * End-stage renal disease on maintenance hemodialysis * Mild volume overload * Uncontrolled hypertension * Noncompliance * Diabetes * Anemia secondary to ESRD * Peripheral vascular disease Recommendations * Patient had an extra hemodialysis treatment yesterday. * Volume status and hyperkalemia much improved * Schedule patient for hemodialysis for today and keep her on MWF schedule as outpatient * Cardiology notes appreciated * Adjust diet and meds for ESRD state * Binders with meals * Adjust antihypertensive meds * Patient advised regarding compliance with her dialysis treatments Subjective Date of service: 10/07/18 Principal diagnosis: cp Interval history: Patient feels better today. Shortness of breath has improved. No nausea or vomiting. Uneventful hemodialysis yesterday Objective - Vital Signs Vital signs: Vital Signs - 12hr 10/07/18 10/07/18 10/07/18 01:00 05:14 11:59 Temperature 98.5 F 98.0 F 98.0 F Pulse Rate 64 64 67 Respiratory 18 18 20 Rate Blood Pressure 125/58 136/64 127/65 O2 Sat by Pulse 94 96 97 Oximetry - General Appearance General appearance: well-developed, well-nourished, appears stated age EENT: PERRL, mucous membranes moist Neck: no JVD, no thyromegaly, no carotid bruit, supple, other (right IJ PermCath in place) Respiratory: Present: Clear to Ascultation Cardiology: regular, normal heart rate, S1S2, no murmurs Gastrointestinal: normal, normoactive bowel sounds Integumentary: other (right transmetatarsal amputation.) - Lab 10/07/18 05:55 10/07/18 05:55 Most recent lab results Calcium 7.7 mg/dL (8.4-10.2) L 10/07/18 05:55 Phosphorus 5.20 mg/dL (2.5-4.5) H 10/04/18 06:58 Medications & Allergies - Medications Allergies/Adverse Reactions: Allergies amoxicillin Allergy (Verified 07/03/18 20:57) Unknown Penicillins Allergy (Verified 05/19/18 13:02) Unknown tramadol Allergy (Verified 07/03/18 20:57) Unknown IV contrast Allergy (Uncoded 01/15/17 17:55) Rash Home Medications: Home Medications Medication Instructions Recorded Confirmed Last Taken Type ALBUTEROL Inhaler (OR & NICU) 2 puff IH Q6H PRN 05/19/18 10/04/18 Unknown His tory [ProAir HFA Inhaler] Ibuprofen [Motrin 600 MG tab] 600 mg PO Q8H PRN 08/26/18 10/04/18 Unknown History ALBUTEROL NEB's [Proventil 0.083% 2.5 mg IH QID PRN #30 nebu 08/31/18 10/04/18 Unknown Rx NEBS] Fluticasone [Flonase] 1 spray NS QDAY PRN #30 bottle 08/31/18 10/04/18 Unknown Rx AtorvaSTATin [Lipitor] 20 mg PO DAILY #30 tablet 10/07/18 Unknown Rx Insulin Glargine [Lantus VIAL] 15 units SUB-Q QHS #1 vial 10/07/18 Unknown Rx Lispro Insulin [Humalog] 6 unit SUB-Q AC 30 Days units 10/07/18 Unknown Rx Metoprolol [Lopressor TAB] 50 mg PO BID #60 tablet 10/07/18 Unknown Rx amLODIPine [Norvasc] 10 mg PO DAILY #30 tablet 10/07/18 Unknown Rx cloNIDine [Catapres] 0.2 mg PO TID #90 tablet 10/07/18 Unknown Rx hydrALAZINE [Apresoline TAB] 100 mg PO TID #90 tab 10/07/18 Unknown Rx Active Medications: Generic Name Dose Route Start Last Admin Trade Name Freq PRN Reason Stop Dose Admin Acetaminophen 650 mg 10/04/18 10:05 10/04/18 21:51 Tylenol PO 650 mg Q4H PRN Administration Pain MILD(1-3)/Fever >100.5/VENTURA Albuterol 2.5 mg 10/04/18 09:59 Proventil IH Q4H PRN SHORTNESS OF BREATH/WHEEZING Amlodipine Besylate 10 mg 10/04/18 10:00 10/06/18 14:52 Norvasc PO 10 mg DAILY RADHA Administration Aspirin 81 mg 10/06/18 10:00 10/06/18 14:52 Baby Aspirin PO 81 mg QDAY RADHA Administration Atorvastatin Calcium 20 mg 10/04/18 10:00 10/06/18 14:51 Lipitor PO 20 mg DAILY RADHA Administration Clonidine HCl 0.2 mg 10/04/18 14:00 10/07/18 08:30 Catapres PO Not Given TID RADHA Dextrose 50 ml 10/04/18 10:03 D50w (25gm) Syringe IV PRN PRN Hypoglycemia Diphenhydramine HCl 25 mg 10/05/18 18:41 10/07/18 09:11 Benadryl PO 25 mg Q6H PRN Administration Itching Epoetin Frank 10,000 unit 10/04/18 12:45 Procrit IV LUIS PRN hemodialysis Fluticasone Propionate 50 mcg 10/04/18 09:59 Flonase NS QDAY PRN Congestion Heparin Sodium (Porcine) 5,000 unit 10/04/18 14:00 10/07/18 05:29 Heparin SUB-Q Not Given Q8HR [facility] Hydralazine HCl 10 mg 10/04/18 10:03 10/05/18 18:32 Apresoline IV 10 mg Q4H PRN Administration BP >160/100 Hydralazine HCl 100 mg 10/05/18 20:00 10/07/18 11:32 Apresoline PO Not Given TID [facility] Sodium Chloride 100 mls @ 999 mls/hr 10/06/18 08:51 Nacl 0.9% IV LUIS PRN Hypotension Insulin Human Lispro 0 unit 10/04/18 11:30 10/07/18 08:30 Humalog SUB-Q 1 unit ACHS [facility] Administration Protocol Insulin Human Lispro 6 unit 10/04/18 13:09 10/07/18 08:30 Humalog SUB-Q 6 unit AC RADHA Administration Metoprolol Tartrate 50 mg 10/05/18 22:00 10/06/18 21:04 Lopressor PO 50 mg BID RADHA Administration Ondansetron HCl 4 mg 10/04/18 10:05 Zofran IV Q8H PRN Nausea And Vomiting Oxycodone/Acetaminophen 1 tab 10/05/18 14:11 10/07/18 09:11 Percocet 5/325 PO 1 tab Q6H PRN Administration Pain, Moderate (4-6) Sodium Chloride 10 ml 10/04/18 22:00 10/06/18 21:05 Sodium Chloride Flush Syringe 10 Ml IV 10 ml BID RADHA Administration Sodium Chloride 10 ml 10/04/18 10:05 Sodium Chloride Flush Syringe 10 Ml IV PRN PRN LINE FLUSH
[2018-10-07] MEDS ORDERED: NACL 0.9% 100 ML IV PRN (13:10)
[2018-10-07] MEDS: LOPRESSOR PO SCH (14:29)
[2018-10-07] MEDS: BABY ASPIRIN PO SCH (17:11)
[2018-10-07] MEDS: NORVASC PO SCH (17:12)
[2018-10-07] MEDS: SODIUM CHLORIDE FLUSH SYRINGE 10 ML IV SCH (17:14)
[2018-10-07 18:26] VITALS: BP 173/75
--- NOTE | 2018-10-07 19:47 | Cat Scan Report ---
FINAL REPORT EXAM: CT ABDOMEN PELVIS WO CON HISTORY: left flank pain TECHNIQUE: Helical CT scan through the abdomen and pelvis without contrast. Images are reconstructed in the sagittal and coronal planes. PRIORS: 07/03/2018 FINDINGS: Solid organ and bowel evaluation is limited without intravenous contrast. Bowel evaluation is limited without oral contrast. Images through the lower thorax show bilateral pleural effusions, large on the right and small on the left without significant interval change. There is bibasilar subsegmental atelectasis increased from the previous exam. There is a small pericardial effusion without significant interval change. The liver, gallbladder, pancreas, spleen and adrenal glands appear normal. There are numerous bilateral intrarenal calcifications most likely arterial. There is no hydronephros is or ureterolithiasis. The uterus is enlarged measuring 16.1 x 11.4 x 11.6 cm. There is an the there is a left adnexal mass or cyst, currently measuring 4.2 x 3.2 cm and previously measuring 3.7 x 3.5 cm. The stomach appears grossly within normal limits. There are no abnormally dilated loops of bowel or acute inflammatory changes. A normal-appearing appe ndix is identified. The abdominal aorta has a normal diameter. There is extensive atherosclerotic calcification including several distal abdominal branches. There are several mildly enlarged retroperitoneal, right pelvic and bilateral inguinal lymph nodes wi thout significant interval change. For example, a left para-aortic lymph node presently measures 2.2 x 1.5 cm, previously measuring 2.2 x 1.4 cm. A right iliac lymph node presently measures 1.7 x 1.4 cm and previously measured 2.0 x 1.5 cm. The bones and subcutaneous soft tissues are unremarkable for age. There is a small supraumbilical bienvenido tral hernia containing normal appearing fat. IMPRESSION: 1. No evidence of hydronephrosis or ureterolithiasis. There are numerous bilateral renal calcificatio ns most likely arterial as there is extensive atherosclerotic calcification. 2. Bilateral pleural effusions, large on the right and small on the left without significant interval change. Stable small pericardial effusion. 3. Bibasilar atelectasis has increased since the last CT scan. 4. Enlarged bulbous uterus most likely due to uterine fibroids. A left adnexal mass or cyst has incre ased slightly in size since the previous CT. Consider further evaluation with pelvic ultrasound. 5. Stable retroperitoneal, right pelvic and inguinal adenopathy. Clinical correlation for lymphoma or other malignancy is recommended. 6. Stable supraumbilical ventral hernia containing normal appearing fat.
== END 2018-10-07 19:30 | disposition home or self-care (01) | DRG 291 ==
LOC: ED 01:52 → 4A 11:58 → 3A 10-05 15:32
PROVIDERS: ADMIT Internal Medicine; ATTEND Internal Medicine
PROC: 5A1D70Z Performance of Urinary Filtration, Intermittent, Less than 6 Hours Per Day (ICD-10-PCS; principal; 2018-10-05)
PROC: 5A1D70Z Performance of Urinary Filtration, Intermittent, Less than 6 Hours Per Day (ICD-10-PCS; 2018-10-06)
PROC: 5A1D70Z Performance of Urinary Filtration, Intermittent, Less than 6 Hours Per Day (ICD-10-PCS; 2018-10-07)
DX: I13.2 Hypertensive heart and chronic kidney disease with heart failure and with stage 5 chronic kidney disease, or end stage renal disease (principal); N18.6 End stage renal disease; I50.43 Acute on chronic combined systolic (congestive) and diastolic (congestive) heart failure; E87.5 Hyperkalemia; I16.0 Hypertensive urgency; E87.70 Fluid overload, unspecified; E11.22 Type 2 diabetes mellitus with diabetic chronic kidney disease; D63.1 Anemia in chronic kidney disease; E11.51 Type 2 diabetes mellitus with diabetic peripheral angiopathy without gangrene; N63.0 Unspecified lump in unspecified breast; I27.20 Pulmonary hypertension, unspecified; I31.3 Pericardial effusion (noninflammatory); L40.9 Psoriasis, unspecified; E11.40 Type 2 diabetes mellitus with diabetic neuropathy, unspecified; I42.9 Cardiomyopathy, unspecified; Z91.19 Patient's noncompliance with other medical treatment and regimen; Z79.4 Long term (current) use of insulin; Z99.2 Dependence on renal dialysis; Z71.89 Other specified counseling; Z83.3 Family history of diabetes mellitus; Z91.15 Patient's noncompliance with renal dialysis; Z82.49 Family history of ischemic heart disease and other diseases of the circulatory system; Z88.0 Allergy status to penicillin; Z88.1 Allergy status to other antibiotic agents; Z91.041 Radiographic dye allergy status; Z79.899 Other long term (current) drug therapy; I25.2 Old myocardial infarction; Z87.442 Personal history of urinary calculi; Z89.421 Acquired absence of other right toe(s); Z89.431 Acquired absence of right foot
CPT/HCPCS: 36415; 71045; 71275; 74176; 80048; 80061; 80076; 80307; 81001; 82962; 83036; 83880; 84100; 84132; 84484; 85025; 85379; 85610; 85730; 87040; 93005; 93010; 93308; 93321; 93325; 96374; G0378; A9270-GY; J0360; J0885; J1200; J1644; J1815; J1940; J7030; J7512; Q9967

== ENCOUNTER 2018-11-03 16:54 | Inpatient (IN) | payer MEDICAID ==
--- NOTE | 2018-11-03 17:09 | Emergency Department Report ---
HPI - General Chief Complaint: Dyspnea/Respdistress Time Seen by Provider: 11/03/18 17:02 - HPI HPI: 48-year-old female presents to the emergency department via EMS from home with complaint of a two-day history of shortness of breath and some body aches. The patient has a history of end-stage renal disease on hemodialysis on Friday//Friday and has not had it for the past week. She blames Medicare transportation services. She cannot remember the name of her pharmacy teacher but says that she sees Dr. Hernandez's group every time she is here. She has not taken anything for her symptoms prior to presentation. No recent travel or sick contacts at home. ED Past Medical Hx - Past Medical History Previous Medical History?: Yes Hx Hypertension: Yes Hx Heart Attack/AMI: No Hx Congestive Heart Failure: No Hx Diabetes: Yes Hx Deep Vein Thrombosis: No Hx Pulmonary Embolism: No Hx Liver Disease: No Hx Renal Disease: Yes Hx Kidney Stones: Yes Hx Asthma: Yes Hx COPD: No Hx Tuberculosis: No Hx HIV: No Additional medical history: psorasis. NEUROPATHY. FIBROIDS. DIALYSIS MWF - Surgical History Past Surgical History?: Yes Hx Coronary Stent: No Hx Pacemaker: No Hx Internal Defibrillator: No Additional Surgical History: X 1 , Hx. left wrist surgery 2 toes amputated r) foot. partial right foot amputation - Social History Smoking Status: Unknown if ever smoked Substance Use Type: None - Medications Home Medications: Home Medications Medication Instructions Recorded Confirmed Last Taken Type ALBUTEROL Inhaler (OR & NICU) 2 puff IH Q6H PRN 05/19/18 10/04/18 Unknown History [ProAir HFA Inhaler] Ibuprofen [Motrin 600 MG tab] 600 mg PO Q8H PRN 08/26/18 10/04/18 Unknown History ALBUTEROL NEB's [Proventil 0.083% 2.5 mg IH QID PRN #30 nebu 08/31/18 10/04/18 Unknown Rx NEBS] Fluticasone [Flonase] 1 spray NS QDAY PRN #30 bottle 08/31/18 10/04/18 Unknown Rx AtorvaSTATin [Lipitor] 20 mg PO DAILY #30 tablet 10/07/18 Unknown Rx Insulin Glargine [Lantus VIAL] 15 units SUB-Q QHS #1 vial 10/07/18 Unknown Rx Lispro Insulin [Humalog] 6 unit SUB-Q AC 30 Days units 10/07/18 Unknown Rx Metoprolol [Lopressor TAB] 50 mg PO BID #60 tablet 10/07/18 Unknown Rx amLODIPine [Norvasc] 10 mg PO DAILY #30 tablet 10/07/18 Unknown Rx cloNIDine [Catapres] 0.2 mg PO TID #90 tablet 10/07/18 Unknown Rx hydrALAZINE [Apresoline TAB] 100 mg PO TID #90 tab 10/07/18 Unknown Rx ED Review of Systems ROS: Stated complaint: DIFFICULTY BREATHING Other details as noted in HPI Comment: All other systems reviewed and negative Constitutional: denies: chills, fever Eyes: denies: eye pain, vision change ENT: denies: ear pain, throat pain Respiratory: shortness of breath. denies: wheezing Cardiovascular: denies: chest pain, palpitations Gastrointestinal: denies: abdominal pain, vomiting Genitourinary: denies: dysuria, discharge Musculoskeletal: myalgia. denies: back pain Skin: denies: rash, lesions Neurological: denies: headache, weakness Physical Exam - Physical Exam Vital Signs: Vital Signs 11/03/18 16:55 Temperature 97.9 F Pulse Rate 94 H Respiratory 16 Rate Blood Pressure 204/99 O2 Sat by Pulse 96 Oximetry Physical Exam: GENERAL: The patient is well-developed well-nourished. HEENT: Normocephalic. Atraumatic. Patient has moist mucous membranes. EYES: Extraocular motions are intact. Pupils are equal and reactive to light bilaterally. NECK: Supple. Trachea is midline. CHEST/LUNGS: Coarse breath sounds without chest. Tachypnea but no accessory muscle use. There is no respiratory distress noted. There is a right-sided chest permacath. HEART/CARDIOVASCULAR: Regular. There is no tachycardia. There is no obvious murmur. ABDOMEN: Abdomen is soft, nontender. Patient has normal bowel sounds. There is no abdominal distention. SKIN: Skin is warm and dry. Bilateral lower extremity nonpitting swelling. NEURO: The patient is awake, alert, and oriented. The patient is cooperative. The patient has no focal neurologic deficits. The patient has normal speech. MUSCULOSKELETAL: There is no tenderness or deformity. There is no evidence of acute injury. ED Course Vital Signs 11/03/18 16:55 Temperature 97.9 F Pulse Rate 94 H Respiratory 16 Rate Blood Pressure 204/99 O2 Sat by Pulse 96 Oximetry - Consultations Consultation #1: I spoke with Dr. Cervantes who says that this patient used to be with their group but has not been for some time now and therefore he would like the validation software facilitator pharmacy teacher contacted regarding this patient. I spoke with Dr. Rivas, who listened to the case presentation including the severe hyperkalemia and need for dialysis. He agrees with the plan for the hyperkalemia cocktail and is going to set up the patient for urgent dialysis this evening. 11/03/18 22:24 ED Medical Decision Making - Lab Data Result diagrams: 11/03/18 17:17 11/03/18 17:17 - EKG Data -: EKG Interpreted by Me EKG shows normal: sinus rhythm, axis, intervals (prolonged MI interval), QRS complexes, ST-T waves Rate: normal - EKG Data When compared to previous EKG there are: previous EKG unavailable Interpretation: normal EKG (with prolonged MI interval) - Radiology Data Radiology results: image reviewed interpreted by me: Chest x-ray shows some pulmonary vascular congestion and right-sided moderate pleural effusion. No obvious pneumonia. No pneumothorax. - Medical Decision Making This patient presents with some shortness of breath and body aches after missing dialysis for the past week. She has a potassium of 7.2, BUNs of 88. She was given albuterol, insulin, glucose, Kayexalate and calcium gluconate. Chest x- ray shows a right-sided pleural effusion. Nephrology was contacted and will set up the patient for urgent dialysis this evening. The patient was accepted for admission by the hospitalist, Dr. Cardozo. - Differential Diagnosis hyperkalemia, CHF, pneumonia, dysrhythmia Critical Care Time: Yes Critical care time in (mins) excluding proc time.: 31 Critical care attestation.: If time is entered above; I have spent that time in minutes in the direct care of this critically ill patient, excluding procedure time. Critical care time was spent on this patient during her initial evaluation, multiple evaluations, treatment of her severe hyperkalemia, consultation with the nephrology service. Critical Care Time: 31 minutes ED Disposition Clinical Impression: Hypertensive urgency, Hyperkalemia, End-stage renal disease needing dialysis Dyspnea Qualifiers: Dyspnea type: shortness of breath Qualified Code(s): R06.02 - Shortness of breath; R06.00 - Dyspnea, unspecified; R06.01 - Orthopnea Disposition: OP ADMIT IP TO THIS HOSP Is pt being admited?: Yes Condition: Serious Time of Disposition: 22:28
[2018-11-03] MEDS ORDERED: APRESOLINE IV ONE ×2 (17:50→18:56)
[2018-11-03] MEDS ORDERED: MORPHINE IV ONE (17:50)
[2018-11-03 17:59] LABS: Basophils # (Auto) 0.1 K/mm3 (0.0-0.1); Basophils % (Auto) 1.4 % (0.0-1.8); Eosinophils # (Auto) 0.3 K/mm3 (0.0-0.4); Eosinophils % (Auto) 4.3 % (0.0-4.3); Hematocrit 31.6 % (30.3-42.9); Hemoglobin 10.3 gm/dl (10.1-14.3); Lymphocytes % (Auto) 15.2 % (13.4-35.0); Mean Corpuscular HGB Conc 33 % (30-34); Mean Corpuscular Volume 89 fl (79-97); Monocytes # (Auto) 0.5 K/mm3 (0.0-0.8); Monocytes % (Auto) 7.6 % (0.0-7.3); Platelet Count 191 K/mm3 (140-440); Red Blood Count 3.57 M/mm3 (3.65-5.03); Red Cell Distribution Width 17.4 % (13.2-15.2)
[2018-11-03 18:14] LABS: Albumin 4.1 g/dL (3.9-5)
[2018-11-03] MEDS ORDERED: CALCIUM GLUCONATE 1,000 MG in NACL 0.9% 100 ML IV ONE (18:35)
[2018-11-03] MEDS ORDERED: HumuLIN R IV ONE (18:35)
[2018-11-03] MEDS ORDERED: KIONEX PO ONE (18:35)
[2018-11-03] MEDS ORDERED: PROVENTIL IH ONE (18:35)
[2018-11-03] MEDS ORDERED: D50W (25GM) Syringe IV ONE (18:36)
--- NOTE | 2018-11-03 19:08 | XRay Report ---
PROCEDURE: XR CHEST 1V AP TECHNIQUE: Single AP view of the chest HISTORY: Dyspnea COMPARISONS: FINDINGS: There is a right dialysis catheter present tip in the SVC. There is a moderate right pleural effusion . Cardiac silhouette is within normal range for technique. No left effusion identified. Pulmonary vas culature is unremarkable. IMPRESSION: Dialysis catheter tip at the cavoatrial junction Moderate right pleural effusion . This document is electronically signed by Angel Howell MD., November 03 2018 07:05:56 PM ET
--- NOTE | 2018-11-03 19:30 | History and Physical Report ---
History of Present Illness Chief complaint: I need dialysis History of present illness: 48 YO Female with ESRD on HD (T,R,Sa), Asthma, Noncompliance, HTN, DM presents to ED for evaluation. Pt states that she has experienced shortness of breath over the past 2 days with worsening symptoms over the past 1day . Pt states that she has been noncompliant with dialysis and has missed dialysis for the past 1 week due to lack of transportation. EMS notified, and upon arrival the patient was found to be in distress. Pt transported to [facility]. Pt seen and evaluated in ED and found to have ESRD, Acidosis, and hyperkalemia. Pt admitted to telemetry. Nephrology consulted in ED for urgent dialysis. No EKG changes. Past History Past Medical History: diabetes, ESRD, hypertension, other (Asthma) Past Surgical History: , Other (foot surgery, dialysis access) Social history: single. denies: smoking, alcohol abuse, prescription drug abuse Family history: diabetes, hypertension Medications and Allergies Allergies Allergy/AdvReac Type Severity Reaction Status Date / Time acetaminophen [From Lortab] Allergy Unknown Verified 11/03/18 16:59 amoxicillin Allergy Unknown Verified 07/03/18 20:57 hydrocodone [From Lortab] Allergy Unknown Verified 11/03/18 16:59 Penicillins Allergy Unknown Verified 05/19/18 13:02 tramadol Allergy Unknown Verified 07/03/18 20:57 IV contrast Allergy Rash Uncoded 01/15/17 17:55 Home Medications Medication Instructions Recorded Confirmed Last Taken Type ALBUTEROL Inhaler (OR & NICU) 2 puff IH Q6H PRN 05/19/18 10/04/18 Unknown History [ProAir HFA Inhaler] Ibuprofen [Motrin 600 MG tab] 600 mg PO Q8H PRN 08/26/18 10/04/18 Unknown History ALBUTEROL NEB's [Proventil 0.083% 2.5 mg IH QID PRN #30 nebu 08/31/18 10/04/18 Unknown Rx NEBS] Fluticasone [Flonase] 1 spray NS QDAY PRN #30 bottle 08/31/18 10/04/18 Unknown Rx AtorvaSTATin [Lipitor] 20 mg PO DAILY #30 tablet 10/07/18 Unknown Rx Insulin Glargine [Lantus VIAL] 15 units SUB-Q QHS #1 vial 10/07/18 Unknown Rx Lispro Insulin [Humalog] 6 unit SUB-Q AC 30 Days units 10/07/18 Unknown Rx Metoprolol [Lopressor TAB] 50 mg PO BID #60 tablet 10/07/18 Unknown Rx amLODIPine [Norvasc] 10 mg PO DAILY #30 tablet 10/07/18 Unknown Rx cloNIDine [Catapres] 0.2 mg PO TID #90 tablet 10/07/18 Unknown Rx hydrALAZINE [Apresoline TAB] 100 mg PO TID #90 tab 10/07/18 Unknown Rx Review of Systems Constitutional: no weight loss, no weight gain, no fever, no chills Ears, nose, mouth and throat: no ear pain, no ear discharge, no tinnitis, no decreased hearing, no nose pain, no nasal congestion Breasts: no change in shape, no swelling, no mass Cardiovascular: no chest pain, no orthopnea, no palpitations, no rapid/irregular heart beat, no edema Respiratory: shortness of breath, no cough, no cough with sputum, no excessive sputum, no hemoptysis Gastrointestinal: no nausea, no vomiting, no diarrhea, no constipation, no rodgers e in bowel habits Genitourinary Female: no pelvic pain, no flank pain, no menorrhagia, no dysuria, no urgency Rectal: no pain, no incontinence, no bleeding Musculoskeletal: no neck stiffness, no neck pain, no shooting arm pain, no low back pain, no shooting leg pain Integumentary: no rash, no wounds, no jaundice Neurological: no paralysis, no weakness, no parathesias, no numbness, no tingling, no syncope Psychiatric: no anxiety, no memory loss, no change in sleep habits, no sleep disturbances, no insomnia, no hypersomnia, no change in appetite Endocrine: no cold intolerance, no polyphagia, no excessive thirst, no poly dipsia, no polyuria, no nocturia Hematologic/Lymphatic: no easy bruising, no easy bleeding, no lymphadenopathy, no lymphedema Allergic/Immunologic: no urticaria, no allergic rhinitis, no wheezing, no persistent infections Exam - Constitutional Vitals: Temp Pulse Resp BP Pulse Ox 97.9 F 94 H 16 204/99 96 11/03/18 16:55 11/03/18 16:55 11/03/18 16:55 11/03/18 16:55 11/03/18 16:55 General appearance: Present: mild distress - EENT Eyes: Present: PERRL ENT: hearing intact, clear oral mucosa - Neck Neck: Present: supple, normal ROM - Respiratory Respiratory effort: normal Respiratory: bilateral: diminished, rhonchi - Cardiovascular Heart Sounds: Present: S1 & S2. Absent: rub, click - Extremities Extremity abnormal: edema Peripheral Pulses: within normal limits - Abdominal General gastrointestinal: Present: soft, non-tender, non-distended, normal bowel sounds Female genitourinary: Present: normal - Integumentary Integumentary: Present: clear, warm, dry - Musculoskeletal Musculoskeletal: gait normal, strength equal bilaterally - Psychiatric Psychiatric: appropriate mood/affect, intact judgment & insight - Neurologic Neurologic: CNII-XII intact, moves all extremities Results - Labs CBC & Chem 7: 11/03/18 17:17 11/03/18 17:17 Labs: Abnormal lab results 11/03/18 11/03/18 Range/Units 17:17 17:17 RBC 3.57 L (3.65-5.03) M/mm3 RDW 17.4 H (13.2-15.2) % [place] % (Auto) 7.6 H (0.0-7.3) % Lymph # 1.0 L (1.2-5.4) K/mm3 Seg Neutrophils % 71.5 H (40.0-70.0) % Potassium 7.2 H* (3.6-5.0) mmol/L Carbon Dioxide 17 L (22-30) mmol/L BUN 88 H (7-17) mg/dL Creatinine 12.1 H (0.7-1.2) mg/dL Calcium 8.0 L (8.4-10.2) mg/dL NT-Pro-B Natriuret Pep 17737 H (0-450) pg/mL Assessment and Plan - Patient Problems (1) ESRD (end stage renal disease) Current Visit: Yes Status: Acute Plan to address problem: Nephrology consulted in ED, dialysis as per renal team, supportive care. strict I/O, daily weight, monitor uop q shift, (2) Acidosis Current Visit: Yes Status: Acute Plan to address problem: IV bicarbonate, supportive care. (3) Hyperkalemia Current Visit: Yes Status: Acute Plan to address problem: Kayelelate, calcium gluconate, nephrology consulted for urgent dialysis (4) Diabetes Current Visit: Yes Status: Acute Plan to address problem: ADA diet, insulin, accu check (5) DVT prophylaxis Current Visit: Yes Status: Acute Plan to address problem: SCD to BLE while in bed.
[2018-11-03] MEDS ORDERED: NACL 0.9% 100 ML IV PRN (20:21)
[2018-11-03] MEDS ORDERED: TYLENOL PO PRN (21:07)
[2018-11-03] MEDS ORDERED: PROVENTIL IH PRN (21:07)
[2018-11-03] MEDS ORDERED: SODIUM CHLORIDE FLUSH SYRINGE 10 ML IV PRN (21:07)
[2018-11-04] MEDS: ZOFRAN IV PRN ×3 (00:46→21:14)
[2018-11-04] MEDS: SODIUM CHLORIDE FLUSH SYRINGE 10 ML IV SCH ×3 (00:56→21:14)
[2018-11-04] MEDS ORDERED: APRESOLINE PO PRN (01:30)
[2018-11-04] MEDS ORDERED: APRESOLINE IV PRN (02:00)
[2018-11-04] MEDS ORDERED: PROVENTIL IH PRN (09:03)
[2018-11-04] MEDS ORDERED: FLONASE NS PRN (10:30)
--- NOTE | 2018-11-04 10:32 | Consultation ---
History of Present Illness - Reason for Consult Consult date: 11/04/18 end stage renal disease, hyperkalemia Requesting physician: MARLENI REYES - History of Present Illness This is a 48 yo F with past medical history of ESRD on HD, Asthma, Noncompliance, HTN, DM who presents to ED with complaints of shortness of breath over the past 2-3 days. Pt states that she has been noncompliant with dialysis and has missed dialysis for the past 1 week due to lack of transportation. Upon ER arrival the patient was found to be in respiratory distress. labs showed severe hyperkalemia with K at 7.2 without EKG changes, along with met acidosis. CXR showed moderate R pleural effusion. Renal consult requested for emergent HD. Past History Past Medical History: diabetes, ESRD, hypertension, other (Asthma) Past Surgical History: , Other (foot surgery, dialysis access) Social history: single. denies: smoking, alcohol abuse, prescription drug abuse Family history: diabetes, hypertension Medications and Allergies Allergies Allergy/AdvReac Type Severity Reaction Status Date / Time acetaminophen [From Lortab] Allergy Unknown Verified 11/03/18 16:59 amoxicillin Allergy Unknown Verified 07/03/18 20:57 hydrocodone [From Lortab] Allergy Unknown Verified 11/03/18 16:59 Penicillins Allergy Unknown Verified 05/19/18 13:02 tramadol Allergy Unknown Verified 07/03/18 20:57 IV contrast Allergy Rash Uncoded 01/15/17 17:55 Home Medications Medication Instructions Recorded Confirmed Last Taken Type ALBUTEROL Inhaler (OR & NICU) 2 puff IH Q6H PRN 05/19/18 10/04/18 Unknown History [ProAir HFA Inhaler] Ibuprofen [Motrin 600 MG tab] 600 mg PO Q8H PRN 08/26/18 10/04/18 Unknown History ALBUTEROL NEB's [Proventil 0.083% 2.5 mg IH QID PRN #30 nebu 08/31/18 10/04/18 Unknown Rx NEBS] Fluticasone [Flonase] 1 spray NS QDAY PRN #30 bottle 08/31/18 10/04/18 Unknown Rx AtorvaSTATin [Lipitor] 20 mg PO DAILY #30 tablet 10/07/18 Unknown Rx Insulin Glargine [Lantus VIAL] 15 units SUB-Q QHS #1 vial 10/07/18 Unknown Rx Lispro Insulin [Humalog] 6 unit SUB-Q AC 30 Days units 10/07/18 Unknown Rx Metoprolol [Lopressor TAB] 50 mg PO BID #60 tablet 10/07/18 Unknown Rx amLODIPine [Norvasc] 10 mg PO DAILY #30 tablet 10/07/18 Unknown Rx cloNIDine [Catapres] 0.2 mg PO TID #90 tablet 10/07/18 Unknown Rx hydrALAZINE [Apresoline TAB] 100 mg PO TID #90 tab 10/07/18 Unknown Rx Active Meds: Active Medications Acetaminophen (Tylenol) 650 mg PO Q4H PRN PRN Reason: Pain MILD(1-3)/Fever >100.5/[place] Last Admin: 11/04/18 00:45 Dose: 650 mg Documented by: Albuterol (Proventil) 2.5 mg IH Q4HRT PRN PRN Reason: Shortness Of Breath Albuterol (Proventil) 2.5 mg IH QID PRN PRN Reason: SHORTNESS OF BREATH/WHEEZING Amlodipine Besylate (Norvasc) 10 mg PO DAILY [facility] Atorvastatin Calcium (Lipitor) 20 mg PO DAILY [facility] Clonidine HCl (Catapres) 0.2 mg PO TID [facility] Fluticasone Propionate (Flonase) 50 mcg NS QDAY PRN PRN Reason: Congestion Hydralazine HCl (Apresoline) 10 mg IV Q4HR PRN PRN Reason: Hypertension Last Admin: 11/04/18 02:03 Dose: 10 mg Documented by: Hydralazine HCl (Apresoline) 100 mg PO TID [facility] Sodium Chloride (Nacl 0.9%) 100 mls @ 999 mls/hr IV LUIS PRN PRN Reason: Hypotension Ibuprofen (Motrin) 600 mg PO Q8HR PRN PRN Reason: Pain Insulin Glargine (Lantus) 15 units SUB-Q QHS [facility] Insulin Human Lispro (Humalog) 6 unit SUB-Q AC [facility] Metoprolol Tartrate (Lopressor) 50 mg PO BID [facility] Ondansetron HCl (Zofran) 4 mg IV Q8H PRN PRN Reason: Nausea And Vomiting Last Admin: 11/04/18 00:46 Dose: 4 mg Documented by: Sodium Chloride (Sodium Chloride Flush Syringe 10 Ml) 10 ml IV BID [facility] Last Admin: 11/04/18 00:56 Dose: 10 ml Documented by: Sodium Chloride (Sodium Chloride Flush Syringe 10 Ml) 10 ml IV PRN PRN PRN Reason: LINE FLUSH Review of Systems All systems: negative Constitutional: weakness, malaise Cardiovascular: shortness of breath, dyspnea on exertion, paroxysmal nocturnal dyspnea Exam - Vital Signs Vital signs: Vital Signs Temp Pulse Resp BP Pulse Ox 97.9 F 94 H 16 204/99 96 11/03/18 16:55 11/03/18 16:55 11/03/18 16:55 11/03/18 16:55 11/03/18 16:55 - General Appearance General appearance: well-developed, well-nourished, appears stated age EENT: ATNC, PERRL, mucous membranes moist Neck: Present: neck supple Respiratory: Decreased Breath Sounds Gastrointestinal: Present: normoactive bowel sounds Integumentary: no rash, other (trace edema b/l LE ) Neurologic: no focal deficit, alert and oriented x3, strength 5/5, CN 3-12 intact Psychiatric: mood/affect appropriate, cooperative Results - Lab Results 11/03/18 17:17 11/04/18 06:10 Most recent lab results Calcium 8.0 mg/dL (8.4-10.2) L 11/04/18 06:10 Laboratory Tests 11/03/18 11/03/18 17:17 18:51 Sodium 139 Potassium 7.2 H* Chloride 100.6 Carbon Dioxide 17 L Anion Gap 29 BUN 88 H Creatinine 12.1 H Estimated GFR 3 BUN/Creatinine Ratio 7 Glucose 97 POC Glucose 84 Calcium 8.0 L Total Bilirubin 0.30 AST 22 ALT 24 Alkaline Phosphatase 118 NT-Pro-B Natriuret Pep 67952 H Total Protein 7.3 Albumin 4.1 Albumin/Globulin Ratio 1.3 Assessment and Plan - Patient Problems (1) Hyperkalemia Current Visit: Yes Status: Acute Plan to address problem: s/p emergent HD last night, K improved. cont 2g K renal diet. Reinforced compliance with her HD treatments (2) End-stage renal disease needing dialysis Current Visit: Yes Status: Chronic Plan to address problem: cont HD on TTS schedule (3) Type 2 diabetes mellitus with diabetic chronic kidney disease Current Visit: Yes Status: Acute Plan to address problem: glucose control as per primary attending (4) Hypertensive chronic kidney disease with stage 5 chronic kidney disease or end stage renal disease Current Visit: Yes Status: Acute Plan to address problem: resume home BP meds. increased clonidine to 0.3mg tid (5) Acidosis Current Visit: Yes Status: Acute Plan to address problem: corrected with HD
[2018-11-04] MEDS ORDERED: ULTRAM PO PRN (11:41)
[2018-11-04 12:21] LABS: Hepatitis B Surface Antigen Non-Reactive (Negative); Hepatitis C Virus Antibody Non-Reactive (NonReactive)
[2018-11-04] MEDS ORDERED: KIONEX PO ONE (12:40)
[2018-11-04] MEDS: NORVASC PO SCH (13:02)
[2018-11-04] MEDS: HumaLOG SUB-Q SCH (13:08)
[2018-11-04] MEDS: LOPRESSOR PO SCH ×2 (13:16→21:15)
[2018-11-04] MEDS ORDERED: CATAPRES PO SCH ×2 (14:00)
[2018-11-04] MEDS ORDERED: IBUPROFEN PO PRN (14:00)
--- NOTE | 2018-11-04 15:07 | Progress Note ---
Assessment and Plan / ESRD (end stage renal disease) Nephrology consulted in ED, dialysis as per renal team, supportive care. /Metabolic Acidosis due to CKD s/p iv bicarbonate, supportive care. /Hypertension, uncontrolled - resumed home meds, adjust meds as needed / Hyperkalemia Current Visit: Yes Status: Acute Plan to address problem: ordered for Kayelelate, calcium gluconate, nephrology consulted for urgent dialysis she is refusing kayexalate, follow BMP , should improve with HD /Pleural effusion - will repeat cxr after tomorrow's HD / Diabetes ADA diet, insulin, accu check / DVT prophylaxis SCD to BLE while in bed. Subjective Date of service: 11/04/18 Interval history: Pt seen and examined c/o nausea, refused kayexalate BP remained elevated Objective - Constitutional Vitals: Vital Signs - 12hr 11/04/18 11/04/18 11/04/18 03:30 08:16 09:09 Temperature 98.4 F 99.3 F Pulse Rate 97 H Respiratory 20 18 Rate Respiratory 20 Rate [Head] Blood Pressure 161/73 191/88 O2 Sat by Pulse 93 Oximetry 11/04/18 11/04/18 11/04/18 10:50 12:04 13:01 Temperature 98.9 F Pulse Rate 99 H Respiratory 18 20 Rate Respiratory Rate [Head] Blood Pressure 165/69 O2 Sat by Pulse 93 92 Oximetry 11/04/18 11/04/18 13:02 13:16 Temperature Pulse Rate 99 H 99 H Respiratory Rate Respiratory Rate [Head] Blood Pressure 165/69 165/99 O2 Sat by Pulse Oximetry General appearance: Present: no acute distress, well-nourished - EENT Eyes: PERRL, EOM intact ENT: hearing intact, clear oral mucosa Ears: bilateral: normal - Neck Neck: supple, normal ROM - Respiratory Respiratory effort: normal Respiratory: bilateral: CTA - Cardiovascular Rhythm: regular Heart Sounds: Present: S1 & S2. Absent: gallop, rub Extremities: pulses intact, No edema, normal color, Full ROM - Gastrointestinal General gastrointestinal: Present: soft, non-tender, non-distended, normal bowel sounds - Integumentary Integumentary: clear, warm, dry - Musculoskeletal Musculoskeletal: 1, strength equal bilaterally - Neurologic Neurologic: moves all extremities - Psychiatric Psychiatric: memory intact, appropriate mood/affect, intact judgment & insight - Labs CBC & Chem 7: 11/03/18 17:17 11/05/18 09:13 Labs: Abnormal lab results 11/03/18 11/03/18 11/04/18 Range/Units 17:17 17:17 06:10 RBC 3.57 L (3.65-5.03) M/mm3 RDW 17.4 H (13.2-15.2) % [place] % (Auto) 7.6 H (0.0-7.3) % Lymph # 1.0 L (1.2-5.4) K/mm3 Seg Neutrophils % 71.5 H (40.0-70.0) % Potassium 7.2 H* 5.2 H D (3.6-5.0) mmol/L Chloride 97.1 L (98-107) mmol/L Carbon Dioxide 17 L (22-30) mmol/L BUN 88 H 41 H (7-17) mg/dL Creatinine 12.1 H 7.1 H (0.7-1.2) mg/dL POC Glucose (70-105) Calcium 8.0 L 8.0 L (8.4-10.2) mg/dL NT-Pro-B Natriuret Pep 23270 H (0-450) pg/mL 11/04/18 Range/Units 12:28 RBC (3.65-5.03) M/mm3 RDW (13.2-15.2) % [place] % (Auto) (0.0-7.3) % Lymph # (1.2-5.4) K/mm3 Seg Neutrophils % (40.0-70.0) % Potassium (3.6-5.0) mmol/L Chloride (98-107) mmol/L Carbon Dioxide (22-30) mmol/L BUN (7-17) mg/dL Creatinine (0.7-1.2) mg/dL POC Glucose 124 H (70-105) Calcium (8.4-10.2) mg/dL NT-Pro-B Natriuret Pep (0-450) pg/mL - Imaging and cardiology Chest x-ray: report reviewed (moderate right pleural effusion)
[2018-11-04] MEDS: CATAPRES PO SCH ×2 (21:15)
[2018-11-04] MEDS: APRESOLINE PO SCH (21:15)
[2018-11-04] MEDS: LANTUS SUB-Q SCH (21:20)
[2018-11-04] MEDS: PERCOCET 5/325 PO PRN (23:25)
[2018-11-05] MEDS: HumaLOG SUB-Q SCH ×3 (07:40→19:33)
[2018-11-05] MEDS ORDERED: NACL 0.9% 100 ML IV PRN (08:00)
[2018-11-05] MEDS: APRESOLINE PO SCH ×3 (08:23→21:30)
[2018-11-05] MEDS: CATAPRES PO SCH ×7 (08:26→21:58)
[2018-11-05] MEDS: NORVASC PO SCH (10:03)
[2018-11-05 10:06] LABS: Calcium 7.9 mg/dL (8.4-10.2)
[2018-11-05] MEDS: LOPRESSOR PO SCH ×2 (10:34→22:01)
[2018-11-05] MEDS: PERCOCET 5/325 PO PRN (10:39)
[2018-11-05] MEDS ORDERED: NACL 0.9 (PRIMING MACHINE ONLY DIALYSIS) MC ONE (12:53)
--- NOTE | 2018-11-05 13:26 | Progress Note ---
Assessment and Plan - Patient Problems (1) Hyperkalemia Current Visit: Yes Status: Acute Plan to address problem: cont HD on TTS schedule. cont 2g K renal diet. Reinforced compliance with her HD treatments. (2) End-stage renal disease needing dialysis Current Visit: Yes Status: Chronic Plan to address problem: cont HD on TTS schedule (3) Type 2 diabetes mellitus with diabetic chronic kidney disease Current Visit: Yes Status: Acute Plan to address problem: glucose control as per primary attending (4) Hypertensive chronic kidney disease with stage 5 chronic kidney disease or end stage renal disease Current Visit: Yes Status: Acute Plan to address problem: resume home BP meds. increased clonidine to 0.3mg tid (5) Acidosis Current Visit: Yes Status: Acute Plan to address problem: corrected with HD Subjective Date of service: 11/05/18 Principal diagnosis: ESRD Interval history: pt seen and examined during HD, BP 145/62 P 70 UF target 2.5L. no acute complaints Objective - Vital Signs Vital signs: Vital Signs - 12hr 11/05/18 11/05/18 11/05/18 03:38 07:27 08:36 Temperature 97.7 F 97.3 F L Pulse Rate 69 69 Respiratory 16 16 Rate Blood Pressure 138/72 129/62 O2 Sat by Pulse 92 96 95 Oximetry 11/05/18 11/05/18 11/05/18 11:45 12:00 12:15 Temperature 97.8 F Pulse Rate 69 68 68 Respiratory 16 Rate Blood Pressure 125/60 132/64 133/56 O2 Sat by Pulse Oximetry - General Appearance General appearance: well-developed, well-nourished, appears stated age EENT: ATNC, PERRL, mucous membranes moist Neck: no JVD Respiratory: Present: Clear to Ascultation Cardiology: regular, S1S2 Gastrointestinal: normoactive bowel sounds Integumentary: no rash, other (no edema ) Neurologic: no focal deficit, alert and oriented x3, strength 5/5, CN 3-12 intact Psychiatric: mood/affect appropriate, cooperative - Lab 11/03/18 17:17 11/05/18 09:13 Most recent lab results Calcium 7.9 mg/dL (8.4-10.2) L 11/05/18 09:13 Medications & Allergies - Medications Allergies/Adverse Reactions: Allergies acetaminophen [From Lortab] Allergy (Verified 11/03/18 16:59) Unknown amoxicillin Allergy (Verified 07/03/18 20:57) Unknown hydrocodone [From Lortab] Allergy (Verified 11/03/18 16:59) Unknown Penicillins Allergy (Verified 05/19/18 13:02) Unknown tramadol Allergy (Verified 07/03/18 20:57) Unknown IV contrast Allergy (Uncoded 01/15/17 17:55) Rash Home Medications: Home Medications Medication Instructions Recorded Confirmed Last Taken Type ALBUTEROL Inhaler (OR & NICU) 2 puff IH Q6H PRN 05/19/18 10/04/18 Unknown History [ProAir HFA Inhaler] Ibuprofen [Motrin 600 MG tab] 600 mg PO Q8H PRN 08/26/18 10/04/18 Unknown History ALBUTEROL NEB's [Proventil 0.083% 2.5 mg IH QID PRN #30 nebu 08/31/18 10/04/18 Unknown Rx NEBS] Fluticasone [Flonase] 1 spray NS QDAY PRN #30 bottle 08/31/18 10/04/18 Unknown Rx AtorvaSTATin [Lipitor] 20 mg PO DAILY #30 tablet 10/07/18 Unknown Rx Insulin Glargine [Lantus VIAL] 15 units SUB-Q QHS #1 vial 10/07/18 Unknown Rx Lispro Insulin [Humalog] 6 unit SUB-Q AC 30 Days units 10/07/18 Unknown Rx Metoprolol [Lopressor TAB] 50 mg PO BID #60 tablet 10/07/18 Unknown Rx amLODIPine [Norvasc] 10 mg PO DAILY #30 tablet 10/07/18 Unknown Rx cloNIDine [Catapres] 0.2 mg PO TID #90 tablet 10/07/18 Unknown Rx hydrALAZINE [Apresoline TAB] 100 mg PO TID #90 tab 10/07/18 Unknown Rx Active Medications: Generic Name Dose Route Start Last Admin Trade Name Freq PRN Reason Stop Dose Admin Acetaminophen 650 mg 11/03/18 21:07 11/04/18 00:45 Tylenol PO 650 mg Q4H PRN Administration Pain MILD(1-3)/Fever >100.5/VENTURA Albuterol 2.5 mg 11/04/18 09:03 Proventil IH QID PRN SHORTNESS OF BREATH/WHEEZING Amlodipine Besylate 10 mg 11/04/18 10:30 11/05/18 10:03 Norvasc PO 10 mg DAILY RADHA Administration Atorvastatin Calcium 20 mg 11/04/18 10:30 11/05/18 10:03 Lipitor PO 20 mg DAILY RADHA Administration Clonidine HCl 0.1 mg 11/04/18 14:00 11/04/18 21:15 Catapres PO 0.1 mg TID RADHA Administration Clonidine HCl 0.2 mg 11/04/18 14:00 11/05/18 10:04 Catapres PO 0.2 mg TID RADHA Administration Fluticasone Propionate 50 mcg 11/04/18 10:30 Flonase NS QDAY PRN Congestion Hydralazine HCl 10 mg 11/04/18 02:00 11/04/18 02:03 Apresoline IV 10 mg Q4HR PRN Administration Hypertension Hydralazine HCl 100 mg 11/04/18 14:00 11/04/18 21:15 Apresoline PO 100 mg TID RADHA Administration Sodium Chloride 100 mls @ 999 mls/hr 11/05/18 08:00 Nacl 0.9% IV LUIS PRN Hypotension Insulin Glargine 15 units 11/04/18 22:00 11/04/18 21:20 Lantus SUB-Q 15 units QHS RADHA Administration Insulin Human Lispro 6 unit 11/04/18 11:30 11/04/18 13:08 Humalog SUB-Q Not Given [facility] Metoprolol Tartrate 50 mg 11/04/18 10:30 11/04/18 21:15 Lopressor PO 50 mg BID RADHA Administration Ondansetron HCl 4 mg 11/03/18 21:07 11/04/18 21:14 Zofran IV 4 mg Q8H PRN Administration Nausea And Vomiting Oxycodone/Acetaminophen 1 tab 11/04/18 21:23 11/05/18 10:39 Percocet 5/325 PO 1 tab Q8H PRN Administration Pain, Moderate (4-6) Sodium Chloride 10 ml 11/03/18 22:00 11/04/18 21:14 Sodium Chloride Flush Syringe 10 Ml IV 10 ml BID RADHA Administration Sodium Chloride 10 ml 11/03/18 21:07 Sodium Chloride Flush Syringe 10 Ml IV PRN PRN LINE FLUSH Tramadol HCl 50 mg 11/04/18 11:41 11/04/18 13:01 Ultram PO 50 mg Q6H PRN Administration Pain , Severe (7-10)
--- NOTE | 2018-11-05 15:58 | Progress Note ---
Assessment and Plan / ESRD (end stage renal disease) Nephrology consulted in ED, dialysis as per renal team, supportive care. /Metabolic Acidosis due to CKD s/p iv bicarbonate, supportive care. /Hypertension, uncontrolled - resumed home meds, adjust meds as needed / Hyperkalemia K -7.2 on admission ordered for Kayexalelate, calcium gluconate, nephrology consulted for urgent dialysis she is refusing kayexalate, follow BMP after HD K 6.0 today /Pleural effusion - will repeat cxr after todays HD / Diabetes ADA diet, insulin, accu check / DVT prophylaxis SCD to BLE while in bed. Physical exam: General appearance: Present: no acute distress, well-nourished - EENT Eyes: PERRL, EOM intact ENT: hearing intact, clear oral mucosa Ears: bilateral: normal - Neck Neck: supple, normal ROM - Respiratory Respiratory effort: normal Respiratory: bilateral: CTA - Cardiovascular Rhythm: regular Heart Sounds: Present: S1 & S2. Absent: gallop, rub Extremities: pulses intact, No edema, normal color, Full ROM - Gastrointestinal General gastrointestinal: Present: soft, non-tender, non-distended, normal bowel sounds - Integumentary Integumentary: clear, warm, dry - Musculoskeletal Musculoskeletal: 1, strength equal bilaterally - Neurologic Neurologic: moves all extremities - Psychiatric Psychiatric: memory intact, appropriate mood/affect, intact judgment & insight Subjective Date of service: 11/05/18 Principal diagnosis: ESRD Interval history: Pt seen and examined BP much better today, tolerated diet agrees to take kayexalate if k remains elevated Denies any chest pain Objective - Constitutional Vitals: Vital Signs - 12hr 11/05/18 11/05/18 11/05/18 07:27 08:36 11:45 Temperature 97.3 F L 97.8 F Pulse Rate 69 69 Respiratory 16 16 Rate Blood Pressure 129/62 125/60 O2 Sat by Pulse 96 95 Oximetry 11/05/18 11/05/18 11/05/18 12:00 12:15 12:30 Temperature Pulse Rate 68 68 70 Respiratory Rate Blood Pressure 132/64 133/56 124/59 O2 Sat by Pulse Oximetry 11/05/18 11/05/18 11/05/18 12:45 13:00 13:15 Temperature Pulse Rate 70 70 70 Respiratory Rate Blood Pressure 139/63 130/58 145/62 O2 Sat by Pulse Oximetry 11/05/18 11/05/18 11/05/18 13:30 13:45 14:00 Temperature Pulse Rate 71 72 72 Respiratory Rate Blood Pressure 157/74 153/71 160/74 O2 Sat by Pulse Oximetry 11/05/18 11/05/18 14:15 14:30 Temperature Pulse Rate 73 73 Respiratory Rate Blood Pressure 160/74 158/71 O2 Sat by Pulse Oximetry - Labs CBC & Chem 7: 11/03/18 17:17 11/06/18 04:35 Labs: Abnormal lab results 11/04/18 11/05/18 Range/Units 20:50 09:13 Potassium 6.0 H (3.6-5.0) mmol/L Chloride 96.6 L (98-107) mmol/L BUN 52 H (7-17) mg/dL Creatinine 8.6 H (0.7-1.2) mg/dL Glucose 102 H (65-100) mg/dL POC Glucose 128 H (70-105) Calcium 7.9 L (8.4-10.2) mg/dL
[2018-11-05] MEDS: ZOFRAN IV PRN (16:06)
--- NOTE | 2018-11-05 17:23 | XRay Report ---
PROCEDURE: XR CHEST 1V AP TECHNIQUE: Single AP view of the chest HISTORY: pleural effusion COMPARISONS: Comparison is dated November 03, 2018 FINDINGS: There is decreasing size of right pleural effusion. Some opacity at the right lung base remains consi stent with some remaining effusion along with atelectasis or infiltrate. Cardiac and mediastinal cont ours are unremarkable. There is a right central venous catheter with tip in the SVC. Cardiac and medi astinal contours are unchanged. Pulmonary vasculature is unremarkable. IMPRESSION: Decreasing size of right pleural effusion. This document is electronically signed by Angel Howell MD., November 05 2018 05:21:26 PM ET
[2018-11-05] MEDS ORDERED: KIONEX PO NR (18:00)
[2018-11-05] MEDS ORDERED: BENADRYL PO PRN (21:26)
[2018-11-05] MEDS: SODIUM CHLORIDE FLUSH SYRINGE 10 ML IV SCH (22:00)
[2018-11-05] MEDS: LANTUS SUB-Q SCH (22:00)
[2018-11-06 05:59] LABS: Calcium 7.7 mg/dL (8.4-10.2)
[2018-11-06] MEDS: HumaLOG SUB-Q SCH ×2 (09:30→12:06)
[2018-11-06] MEDS: PERCOCET 5/325 PO PRN (09:31)
[2018-11-06] MEDS: APRESOLINE PO SCH ×2 (09:32→17:45)
[2018-11-06] MEDS: CATAPRES PO SCH ×4 (09:33→17:45)
[2018-11-06] MEDS: LOPRESSOR PO SCH (09:34)
[2018-11-06] MEDS: NORVASC PO SCH (09:34)
--- NOTE | 2018-11-06 11:18 | Progress Note ---
Assessment and Plan - Patient Problems (1) Hyperkalemia Current Visit: Yes Status: Acute Plan to address problem: K improved with HD and medical treatment. cont HD on TTS schedule. cont 2g K renal diet. Reinforced compliance with her HD treatments. (2) End-stage renal disease needing dialysis Current Visit: Yes Status: Chronic Plan to address problem: cont HD on TTS schedule. stable for discharge from renal stand point (3) Type 2 diabetes mellitus with diabetic chronic kidney disease Current Visit: Yes Status: Acute Plan to address problem: glucose control as per primary attending (4) Hypertensive chronic kidney disease with stage 5 chronic kidney disease or end stage renal disease Current Visit: Yes Status: Acute Plan to address problem: resume home BP meds. increased clonidine to 0.3mg tid (5) Acidosis Current Visit: Yes Status: Acute Plan to address problem: corrected with HD Subjective Date of service: 11/06/18 Principal diagnosis: ESRD Interval history: Pt awake, alert, in no acute distress Objective - Vital Signs Vital signs: Vital Signs - 12hr 11/05/18 11/06/18 11/06/18 23:44 04:18 09:33 Temperature 98.2 F 98.7 F Pulse Rate 78 79 75 Respiratory 16 18 Rate Blood Pressure 136/50 150/63 156/67 O2 Sat by Pulse 92 94 Oximetry - General Appearance General appearance: well-developed, well-nourished, appears stated age EENT: ATNC, PERRL, mucous membranes moist Neck: no JVD Respiratory: Present: Clear to Ascultation Cardiology: regular, S1S2 Gastrointestinal: normoactive bowel sounds Integumentary: no rash, other (no edema ) Neurologic: no focal deficit, alert and oriented x3, strength 5/5, CN 3-12 intact Psychiatric: mood/affect appropriate, cooperative - Lab 11/03/18 17:17 11/06/18 04:35 Most recent lab results Calcium 7.7 mg/dL (8.4-10.2) L 11/06/18 04:35 Medications & Allergies - Medications Allergies/Adverse Reactions: Allergies acetaminophen [From Lortab] Allergy (Verified 11/03/18 16:59) Unknown amoxicillin Allergy (Verified 07/03/18 20:57) Unknown hydrocodone [From Lortab] Allergy (Verified 11/03/18 16:59) Unknown Penicillins Allergy (Verified 05/19/18 13:02) Unknown tramadol Allergy (Verified 07/03/18 20:57) Unknown IV contrast Allergy (Uncoded 01/15/17 17:55) Rash Home Medications: Home Medications Medication Instructions Recorded Confirmed Last Taken Type ALBUTEROL Inhaler (OR & NICU) 2 puff IH Q6H PRN 05/19/18 11/06/18 11/05/18 History [ProAir HFA Inhaler] Ibuprofen [Motrin 600 MG tab] 600 mg PO Q8H PRN 08/26/18 11/06/18 11/04/18 History ALBUTEROL NEB's [Proventil 0.083% 2.5 mg IH QID PRN #30 nebu 08/31/18 11/06/18 11/05/18 Rx NEBS] Fluticasone [Flonase] 1 spray NS QDAY PRN #30 bottle 08/31/18 11/06/18 11/05/18 Rx AtorvaSTATin [Lipitor] 20 mg PO DAILY #30 tablet 10/07/18 11/06/18 11/05/18 Rx Insulin Glargine [Lantus VIAL] 15 units SUB-Q QHS #1 vial 10/07/18 11/06/18 11/05/18 Rx Lispro Insulin [Humalog] 6 unit SUB-Q AC 30 Days units 10/07/18 11/06/18 11/05/18 Rx Metoprolol [Lopressor TAB] 50 mg PO BID #60 tablet 10/07/18 11/06/18 11/05/18 Rx amLODIPine [Norvasc] 10 mg PO DAILY #30 tablet 10/07/18 11/06/18 11/05/18 Rx cloNIDine [Catapres] 0.2 mg PO TID #90 tablet 10/07/18 11/06/18 11/05/18 Rx hydrALAZINE [Apresoline TAB] 100 mg PO TID #90 tab 10/07/18 11/06/18 11/05/18 Rx Active Medications: Generic Name Dose Route Start Last Admin Trade Name Freq PRN Reason Stop Dose Admin Acetaminophen 650 mg 11/03/18 21:07 11/04/18 00:45 Tylenol PO 650 mg Q4H PRN Administration Pain MILD(1-3)/Fever >100.5/[facility]A Albuterol 2.5 mg 11/04/18 09:03 Proventil IH QID PRN SHORTNESS OF BREATH/WHEEZING Amlodipine Besylate 10 mg 11/04/18 10:30 11/06/18 09:34 Norvasc PO 10 mg DAILY [facility] Administration Atorvastatin Calcium 20 mg 11/04/18 10:30 11/06/18 09:31 Lipitor PO 20 mg DAILY [facility] Administration Clonidine HCl 0.1 mg 11/04/18 14:00 11/06/18 09:33 Catapres PO 0.1 mg TID RADHA Administration Clonidine HCl 0.2 mg 11/04/18 14:00 11/06/18 09:33 Catapres PO 0.2 mg TID [facility] Administration Diphenhydramine HCl 25 mg 11/05/18 21:26 11/06/18 04:58 Benadryl PO 25 mg Q6H PRN Administration Itching Fluticasone Propionate 50 mcg 11/04/18 10:30 Flonase NS QDAY PRN Congestion Hydralazine HCl 10 mg 11/04/18 02:00 11/04/18 02:03 Apresoline IV 10 mg Q4HR PRN Administration Hypertension Hydralazine HCl 100 mg 11/04/18 14:00 11/06/18 09:32 Apresoline PO 100 mg TID [facility] Administration Sodium Chloride 100 mls @ 999 mls/hr 11/05/18 08:00 Nacl 0.9% IV LUIS PRN Hypotension Insulin Glargine 15 units 11/04/18 22:00 11/05/18 22:00 Lantus SUB-Q Not Given QHS [facility] Insulin Human Lispro 6 unit 11/04/18 11:30 11/06/18 09:30 Humalog SUB-Q 6 unit AC [facility] Administration Metoprolol Tartrate 50 mg 11/04/18 10:30 11/06/18 09:34 Lopressor PO 50 mg BID [facility] Administration Ondansetron HCl 4 mg 11/03/18 21:07 11/05/18 16:06 Zofran IV 4 mg Q8H PRN Administration Nausea And Vomiting Oxycodone/Acetaminophen 1 tab 11/04/18 21:23 11/06/18 09:31 Percocet 5/325 PO 1 tab Q8H PRN Administration Pain, Moderate (4-6) Sodium Chloride 10 ml 11/03/18 22:00 11/05/18 22:00 Sodium Chloride Flush Syringe 10 Ml IV 10 ml BID RADHA Administration Sodium Chloride 10 ml 11/03/18 21:07 Sodium Chloride Flush Syringe 10 Ml IV PRN PRN LINE FLUSH Tramadol HCl 50 mg 11/04/18 11:41 11/04/18 13:01 Ultram PO 50 mg Q6H PRN Administration Pain , Severe (7-10)
[2018-11-06] MEDS ORDERED: D50W (25GM) Vial IV ONE (12:02)
[2018-11-06] MEDS ORDERED: D50W (25GM) Syringe IV ONE ×2 (12:04→13:00)
[2018-11-06] MEDS ORDERED: HumaLOG SUB-Q SCH (12:27)
[2018-11-06] MEDS: SODIUM CHLORIDE FLUSH SYRINGE 10 ML IV SCH (12:49)
--- NOTE | 2018-11-06 13:48 | Discharge Summary ---
Providers - Providers Date of Admission: 11/03/18 21:07 Date of discharge: 11/06/18 Attending physician: RAUL MARROQUIN 11/03/18 19:23 Consult to Physician [CONS] Routine Comment: Consulting Provider: TK LANE Physician Instructions: Reason For Exam: hyperkalemia, ESRD [facility] Condition: Stable Pertinent studies: CXR Hospital course: Brief History: This is a 48 yo F with past medical history of ESRD on HD, Asthma, Noncompliance, HTN, DM who presents to ED with complaints of shortness of breath over the past 2-3 days. Pt states that she has been noncompliant with dialysis and has missed dialysis for the past 1 week due to lack of transportation. Upon ER arrival the patient was found to be in respiratory distress. labs showed severe hyperkalemia with K at 7.2 without EKG changes, along with met acidosis. CXR showed moderate R pleural effusion. Renal consulted for emergent HD and she was admitted for further evaluation. Discharge diagnosis and management: / ESRD (end stage renal disease) Nephrology consulted in ED, dialyzed as per renal team, supportive care. /Respiratory distress, POA - due to pulmonary edema and right pleural effusion, resolved with HD /Metabolic Acidosis due to CKD s/p iv bicarbonate, supportive care. /Hypertension, uncontrolled - resumed home meds, adjusted meds as needed / Hyperkalemia K -7.2 on admission ordered for Kayexalelate, calcium gluconate, nephrology consulted for urgent dialysis she initially refused kayexalate, but then agreed to take for persistent elevated K level K 4.9 today on discharge /Pleural effusion - Improved repeat cxr after HD, no need for thoracentesis for now / Diabetes managed with ADA diet, insulin, accu check / DVT prophylaxis SCD to BLE while in bed. Physical exam: General appearance: Present: no acute distress, well-nourished - EENT Eyes: EOM intact ENT: hearing intact, clear oral mucosa Ears: bilateral: normal - Neck Neck: supple, normal ROM - Respiratory Respiratory effort: normal Respiratory: bilateral: CTA - Cardiovascular Rhythm: regular Heart Sounds: Present: S1 & S2. Absent: gallop, rub Extremities: pulses intact, No edema, normal color, Full ROM - Gastrointestinal General gastrointestinal: Present: soft, non-tender, non-distended, normal bowel sounds - Integumentary Integumentary: clear, warm, dry - Musculoskeletal Musculoskeletal: 1, strength equal bilaterally - Neurologic Neurologic: moves all extremities - Psychiatric Psychiatric: memory intact, appropriate mood/affect, intact judgment & insight Disposition: DC-01 TO HOME OR SELFCARE Time spent for discharge: 34 minutes Core Measure Documentation - Palliative Care Palliative Care/ Comfort Measures: Not Applicable - Core Measures Any of the following diagnoses?: none Exam - Constitutional Vitals: Temp Pulse Resp BP Pulse Ox 98.7 F 75 18 156/67 94 11/06/18 04:18 11/06/18 09:33 11/06/18 04:18 11/06/18 09:33 11/06/18 04:18 Plan Activity: advance as tolerated Weight Bearing Status: Weight Bear as Tolerated Diet: diabetic, renal Follow up with: KD BARROW MD [Primary Care Provider] - 7 Days
[2018-11-06 19:25] VITALS: BP 138/62
[2018-11-06] MEDS ORDERED: LANTUS SUB-Q SCH (22:00)
== END 2018-11-06 21:09 | disposition home or self-care (01) | DRG 640 ==
LOC: ED 16:54 → 4A 21:07
PROVIDERS: ADMIT Internal Medicine; ATTEND Internal Medicine
PROC: 5A1D70Z Performance of Urinary Filtration, Intermittent, Less than 6 Hours Per Day (ICD-10-PCS; principal; 2018-11-03)
PROC: 5A1D70Z Performance of Urinary Filtration, Intermittent, Less than 6 Hours Per Day (ICD-10-PCS; 2018-11-05)
DX: E87.5 Hyperkalemia (principal); N18.6 End stage renal disease; E87.2 Acidosis; I12.0 Hypertensive chronic kidney disease with stage 5 chronic kidney disease or end stage renal disease; E11.22 Type 2 diabetes mellitus with diabetic chronic kidney disease; I16.0 Hypertensive urgency; J81.1 Chronic pulmonary edema; R06.03 Acute respiratory distress; J90 Pleural effusion, not elsewhere classified; J45.909 Unspecified asthma, uncomplicated; Z99.2 Dependence on renal dialysis; Z91.19 Patient's noncompliance with other medical treatment and regimen; Z83.3 Family history of diabetes mellitus; Z82.49 Family history of ischemic heart disease and other diseases of the circulatory system; Z88.5 Allergy status to narcotic agent; Z88.0 Allergy status to penicillin; Z88.8 Allergy status to other drugs, medicaments and biological substances; Z88.6 Allergy status to analgesic agent; Z88.1 Allergy status to other antibiotic agents; Z91.041 Radiographic dye allergy status; Z79.51 Long term (current) use of inhaled steroids; Z79.4 Long term (current) use of insulin; Z79.899 Other long term (current) drug therapy; Z91.15 Patient's noncompliance with renal dialysis; Z87.442 Personal history of urinary calculi; Z89.421 Acquired absence of other right toe(s)
CPT/HCPCS: 36415; 71045; 80048; 80053; 80074; 82962; 83880; 84132; 85025; 87116; 93005; 93010; 94644; 96374; 96375; 99291; G0378; A9270-GY; J0360; J0610; J1815; J2270; J2405; J7030

== ENCOUNTER 2018-11-16 13:35 | Inpatient (IN) | payer MEDICAID ==
--- NOTE | 2018-11-16 15:00 | Emergency Department Report ---
Blank Doc - Documentation Documentation: This is a 48-year-old female that presents with chest pain in midsternum area with SOB. Stated also has back pain as well. This initial assessment/diagnostic orders/clinical plan/treatment(s) is/are subject to change based on patient's health status, clinical progression and re- assessment by fellow clinical providers in the ED. Further treatment and workup at subsequent clinical providers discretion. Patient/guardians urged not to elope from the ED as their condition may be serious if not clinically assessed and managed. Initial orders include: 1- Patient sent to MAIN ED for further evaluation and treatment 2- CXR 3- EKG 4- Labs
[2018-11-16 15:43] LABS: Basophils # (Auto) 0.2 K/mm3 (0.0-0.1); Basophils % (Auto) 2.4 % (0.0-1.8); Eosinophils # (Auto) 0.3 K/mm3 (0.0-0.4); Eosinophils % (Auto) 3.6 % (0.0-4.3); Hematocrit 27.6 % (30.3-42.9); Lymphocytes # (Auto) 0.7 K/mm3 (1.2-5.4); Lymphocytes % (Auto) 9.1 % (13.4-35.0); Mean Corpuscular HGB Conc 33 % (30-34); Mean Corpuscular Volume 87 fl (79-97); Monocytes # (Auto) 0.5 K/mm3 (0.0-0.8); Monocytes % (Auto) 6.3 % (0.0-7.3); Platelet Count 198 K/mm3 (140-440); Red Blood Count 3.19 M/mm3 (3.65-5.03); Red Cell Distribution Width 16.1 % (13.2-15.2)
[2018-11-16 15:52] LABS: INR 1.15 (0.87-1.13)
[2018-11-16 15:53] LABS: Partial Thromboplastin Time 33.3 Sec. (24.2-36.6)
[2018-11-16 16:14] LABS: Albumin 4.1 g/dL (3.9-5); Calcium 7.9 mg/dL (8.4-10.2)
--- NOTE | 2018-11-16 16:43 | XRay Report ---
PROCEDURE: XR CHEST ROUTINE 2V TECHNIQUE: PA and lateral views of the chest. HISTORY: Chest Pain COMPARISONS: CXR 11/05/2018 FINDINGS: Lines, tubes, and devices: Double-lumen right jugular catheter terminates in the distal superior vena cava, unchanged Lungs and pleura: Trachea is normal in position. There is an enlarging right pleural effusion now enc ompassing one half of the hemithorax. Mild perihilar vascular congestion is noted. Cardiomediastinal silhouette: Heart is enlarged but stable. Other: Bony structures are intact. IMPRESSION: Worsening right pleural effusion, now encompassing one half of the hemithorax. Mild perihilar congest ion Stable cardiomegaly This document is electronically signed by Michelle Cameron MD., November 16 2018 04:41:57 PM ET
[2018-11-16 16:46] LABS: Chol/HDL Ratio 2.47 %
[2018-11-16] MEDS ORDERED: D50W (25GM) Vial IV ONE (18:12)
[2018-11-16] MEDS ORDERED: HumuLIN R IV ONE (18:12)
[2018-11-16] MEDS ORDERED: MORPHINE IV ONE (18:23)
[2018-11-16] MEDS ORDERED: ZOFRAN IV ONE (18:23)
[2018-11-16] MEDS ORDERED: NORMODYNE IV ONE (18:36)
--- NOTE | 2018-11-16 18:36 | Emergency Department Report ---
ED Shortness of Breath HPI - General Chief Complaint: Chest Pain Stated Complaint: DISCOMFORT IN CHEST/BODY PAIN/SWOLLEN FACE Time Seen by Provider: 11/16/18 14:57 Source: patient Mode of arrival: Ambulatory Limitations: No Limitations - History of Present Illness Initial Comments: 48-year-old female the past medical history of end-stage disease on dialysis Friday, , and Friday, CHF, asthma, diabetes, hypertension, and neuropathy presents to the hospital with complaints of shortness of breath, generalized pain, and dialysis noncompliance. Patient states she has missed for dialysis session due to transportation issues. She complains of generalized edema and shortness of breath particularly when lying on her side. Patient complains of significant generalized body pain rated 8/10 in intensity. No complaints of fever. Patient still has some urine output. 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 Previous medical record review. Patient has been seen by multiple nephrology groups in the past. She was recently admitted here November 01 until November 06 with dialysis compliance issues. She was seen by Dr. Logan's nephrology group at that time. - Related Data Home Medications Medication Instructions Recorded Confirmed Last Taken ALBUTEROL Inhaler (OR & NICU) 2 puff IH Q6H PRN 05/19/18 11/16/18 11/05/18 [ProAir HFA Inhaler] Ibuprofen [Motrin 600 MG tab] 600 mg PO Q8H PRN 08/26/18 11/16/18 11/04/18 Previous Rx's Medication Instructions Recorded Last Taken Type ALBUTEROL NEB's [Proventil 0.083% 2.5 mg IH QID PRN #30 nebu 08/31/18 11/05/18 R x NEBS] Fluticasone [Flonase] 1 spray NS QDAY PRN #30 bottle 08/31/18 11/05/18 Rx AtorvaSTATin [Lipitor] 20 mg PO DAILY #30 tablet 10/07/18 11/05/18 Rx Metoprolol [Lopressor TAB] 50 mg PO BID #60 tablet 10/07/18 11/05/18 Rx amLODIPine [Norvasc] 10 mg PO DAILY #30 tablet 10/07/18 11/05/18 Rx cloNIDine [Catapres] 0.2 mg PO TID #90 tablet 10/07/18 11/05/18 Rx hydrALAZINE [Apresoline TAB] 100 mg PO TID #90 tab 10/07/18 11/05/18 Rx Insulin Glargine [Lantus VIAL] 8 units SUB-Q QHS #1 vial 11/06/18 11/05/18 Rx Lispro Insulin [Humalog] 4 unit SUB-Q AC 30 Days units 11/06/18 11/05/18 Rx Allergies Allergy/AdvReac Type Severity Reaction Status Date / Time acetaminophen [From Lortab] Allergy Unknown Verified 11/03/18 16:59 amoxicillin Allergy Unknown Verified 07/03/18 20:57 hydrocodone [From Lortab] Allergy Unknown Verified 11/03/18 16:59 Penicillins Allergy Unknown Verified 05/19/18 13:02 tramadol Allergy Unknown Verified 07/03/18 20:57 IV contrast Allergy Rash Uncoded 01/15/17 17:55 ED Review of Systems ROS: Stated complaint: DISCOMFORT IN CHEST/BODY PAIN/SWOLLEN FACE Other details as noted in HPI Comment: All other systems reviewed and negative ED Past Medical Hx - Past Medical History Previous Medical History?: Yes Hx Hypertension: Yes Hx CVA: Yes Hx Heart Attack/AMI: No Hx Congestive Heart Failure: No Hx Diabetes: Yes Hx Deep Vein Thrombosis: No Hx Pulmonary Embolism: No Hx Liver Disease: No Hx Renal Disease: Yes (HD TTS) Hx Kidney Stones: Yes Hx Asthma: Yes Hx COPD: No Hx Tuberculosis: No Hx HIV: No Additional medical history: psorasis. NEUROPATHY. FIBROIDS. DIALYSIS MWF - Surgical History Past Surgical History?: Yes Hx Coronary Stent: No Hx Pacemaker: No Hx Internal Defibrillator: No Additional Surgical History: X 1 , Hx. left wrist surgery 2 toes amputated r) foot. partial right foot amputation - Social History Smoking Status: Never Smoker Substance Use Type: None - Medications Home Medications: Home Medications Medication Instructions Recorded Confirmed Last Taken Type ALBUTEROL Inhaler (OR & NICU) 2 puff IH Q6H PRN 05/19/18 11/16/18 11/05/18 History [ProAir HFA Inhaler] Ibuprofen [Motrin 600 MG tab] 600 mg PO Q8H PRN 08/26/18 11/16/18 11/04/18 History ALBUTEROL NEB's [Proventil 0.083% 2.5 mg IH QID PRN #30 nebu 12/31/18 03/18/19 03/07/19 Rx NEBS] Fluticasone [Flonase] 1 spray NS QDAY PRN #30 bottle 08/31/18 11/16/18 11/05/18 Rx AtorvaSTATin [Lipitor] 20 mg PO DAILY #30 tablet 10/07/18 11/16/18 11/05/18 Rx Metoprolol [Lopressor TAB] 50 mg PO BID #60 tablet 10/07/18 11/16/18 11/05/18 Rx amLODIPine [Norvasc] 10 mg PO DAILY #30 tablet 10/07/18 11/16/18 11/05/18 Rx cloNIDine [Catapres] 0.2 mg PO TID #90 tablet 10/07/18 11/16/18 11/05/18 Rx hydrALAZINE [Apresoline TAB] 100 mg PO TID #90 tab 10/07/18 11/16/18 11/05/18 Rx Insulin Glargine [Lantus VIAL] 8 units SUB-Q QHS #1 vial 11/06/18 11/16/18 11/05/18 Rx Lispro Insulin [Humalog] 4 unit SUB-Q AC 30 Days units 11/06/18 11/16/18 11/05/18 Rx ED Physical Exam - General Limitations: No Limitations - Other Other exam information: General: Distress due to generalized Head exam: Atraumatic, normocephalic Eyes exam: Normal appearance ENT: Moist mucous membrane Neck exam: Normal inspection Respiratory exam: diminished breath sounds right base Cardiovascular: Normal rate and rhythm, right chest wall Vas-Cath Abdomen: Soft, nondistended, and nontender, with normal bowel sounds, no rebound, or guarding Extremity: Full range of motion normal inspection no deformity Back: Normal Inspection, full range of motion, no tenderness Neurologic: Alert, oriented x3, cranial nerves intact, no motor or sensory deficit Psychiatric: normal affect, normal mood Skin: Ecchymosis to right breast in abdominal wall. Patient denies all or injury and cannot recall how long this ecchymosis has been present ED Course Vital Signs 11/16/18 11/16/18 14:58 15:02 Temperature 97.6 F Pulse Rate 89 Respiratory 20 Rate Blood Pressure 192/103 Blood Pressure 191/90 [Right] O2 Sat by Pulse 94 Oximetry ED Medical Decision Making - Lab Data Result diagrams: 11/16/18 15:28 11/16/18 15:28 Lab Results 11/16/18 11/16/18 11/16/18 Range/Units 15:28 15:28 15:28 WBC 7.3 (4.5-11.0) K/mm3 RBC 3.19 L (3.65-5.03) M/mm3 Hgb 9.0 L (10.1-14.3) gm/dl Hct 27.6 L (30.3-42.9) % MCV 87 (79-97) fl MCH 28 (28-32) pg MCHC 33 (30-34) % RDW 16.1 H (13.2-15.2) % Plt Count 198 (140-440) K/mm3 Lymph % (Auto) 9.1 L (13.4-35.0) % [place] % (Auto) 6.3 (0.0-7.3) % Eos % (Auto) 3.6 (0.0-4.3) % Baso % (Auto) 2.4 H (0.0-1.8) % Lymph # 0.7 L (1.2-5.4) K/mm3 [place] # 0.5 (0.0-0.8) K/mm3 Eos # 0.3 (0.0-0.4) K/mm3 Baso # 0.2 H (0.0-0.1) K/mm3 Seg Neutrophils % 78.6 H (40.0-70.0) % Seg Neutrophils # 5.7 (1.8-7.7) K/mm3 PT 15.4 H (12.2-14.9) Sec. INR 1.15 H (0.87-1.13) APTT 33.3 (24.2-36.6) Sec. D-Dimer 4355.47 H (0-234) ng/mlDDU Sodium 141 (137-145) mmol/L Potassium 7.5 H* (3.6-5.0) mmol/L Chloride 98.7 (98-107) mmol/L Carbon Dioxide 18 L (22-30) mmol/L Anion Gap 32 mmol/L BUN 89 H (7-17) mg/dL Creatinine 16.9 H (0.7-1.2) mg/dL Estimated GFR 2 ml/min BUN/Creatinine Ratio 5 % Glucose 109 H (65-100) mg/dL Calcium 7.9 L (8.4-10.2) mg/dL Total Bilirubin 0.40 (0.1-1.2) mg/dL AST 16 (5-40) units/L ALT 13 (7-56) units/L Alkaline Phosphatase 130 H (35-129) units/L Troponin T 0.640 H* (0.00-0.029) ng/mL Total Protein 7.2 (6.3-8.2) g/dL Albumin 4.1 (3.9-5) g/dL Albumin/Globulin Ratio 1.3 % Triglycerides 73 (2-149) mg/dL Cholesterol 126 (50-199) mg/dL LDL Cholesterol Direct 63 (50-130) mg/dL HDL Cholesterol 51 (40-59) mg/dL Cholesterol/HDL Ratio 2.47 % - EKG Data -: EKG Interpreted by Mt EKG shows normal: sinus rhythm, axis (qrs 2), QRS complexes (qsd 81), ST-T waves (no stemi, no peak t waves) Rate: normal (90) - EKG Data When compared to previous EKG there are: no significant change - Radiology Data Radiology results: report reviewed PROCEDURE: XR CHEST ROUTINE 2V TECHNIQUE: PA and lateral views of the chest. HISTORY: Chest Pain COMPARISONS: CXR 11/05/2018 FINDINGS: Lines, tubes, and devices: Double-lumen right jugular catheter terminates in the distal superior vena cava, unchanged Lungs and pleura: Trachea is normal in position. There is an enlarging right p leural effusion now encompassing one half of the hemithorax. Mild perihilar vascular congestion is noted. Cardiomediastinal silhouette: Heart is enlarged but stable. Other: Bony structures are intact. IMPRESSION: Worsening right pleural effusion, now encompassing one half of the hemithorax. Mild perihilar congestion Stable cardiomegaly - Medical Decision Making Patient presents with those his noncompliance. K 7.5 without ekg changes. Hyperkalemic meds ordered with exception of Kayexalate since states she has a difficult time tolerating the medication. Labetalol for hypertension and morphine/Zofran for pain. Hospitalist the metal wire coating operator in [facility] for admission and orders placed. Patient has elevated troponin which is stable compared to previous without EKG changes. Repeat shows no change. Patient also has elevated d-dimer which has also been elevated in the past with a negative CT angio chest for Pulm embolism last month. I will defer to hospitalist for further d-dimer elevation workup as seen fit. More importantly patient would benefit from emergent dialysis to hyperkalemia and pleural effusion. - Differential Diagnosis volume overload, hyperk, uremia, chf, mi, pe, unstable angina Critical Care Time: No Critical care attestation.: If time is entered above; I have spent that time in minutes in the direct care of this critically ill patient, excluding procedure time. ED Disposition Clinical Impression: ESRD needing dialysis, Hyperkalemia, Pleural effusion, right, Noncompliance with renal dialysis, Generalized pain, Volume overload, Uncontrolled hypertension, Elevated d-dimer, Elevated troponin Disposition: OP ADMIT IP TO THIS HOSP Is pt being admited?: Yes Condition: Stable Time of Disposition: 18:41 (Dr Herrera/hosp)
[2018-11-16] MEDS ORDERED: D50W (25GM) Syringe IV ONE (18:45)
[2018-11-16] MEDS ORDERED: NACL 0.9% 100 ML IV PRN (18:57)
--- NOTE | 2018-11-16 18:58 | Event Note ---
Discussed with Dr. Torrez emergency room physician patient being admitted after being noncompliant missing several dialysis treatment admitted with shortness of breath fluid overload and moderate degree of hyperkalemia Patient will be treated with medical regimen for hyperkalemia and in the meantime will order for stat hemodialysis Discussed with Dr. Torrez that dialysis nurse should be informed without any delay
--- NOTE | 2018-11-16 19:25 | Consultation ---
History of Present Illness - History of Present Illness Thank you for the consultation ! Patient was evaluated today My assessment and plan are as follows; End-stage renal disease: Patient is currently on hemodialysis, due to severe hyp erkalemia Will do stat dialys Noncompliant patient, high mortality risk educated Fluid overload will need reevaluation tomorrow Anemia and end-stage renal disease: Monitor hemoglobin and hematocrit er ythropoietin as needed. Workup as required Secondary hyperparathyroidism: Check phosphorus and PTH level periodically, binders as needed Dialysis access: Currently working well Malnutrition risk: High consider high-protein diet dietitian evaluation and follow-up in general 1.5 g protein per KG body weight Fluid restriction: 1200 cc per day not to exceed more than that Adequately counseled and educated about other hospital related issues as well Labs were discussed with patient and simple [place] Patient does appear to have good understanding of all the dialysis related issues Patient was adequately counseled and educated regarding multiple renal related issues. overall prognosis guarded to poor long-term due to noncompliance All renal related questions were answered and simple [place] pertinent lab studies as well as imaging results were also discussed with patient We will continue to follow and make recommendations from renal standpoint. Thank you for the consultation Author: Faizan Andrews M.D. [facility], [address] [place] [address] Tel; [phone] Source of information: From patient and old records History of present illness Patient is a 48-year-old female who was noted to be very noncompliant came in with complaints of increasing shortness of breath, uncontrolled hypertension, patient has had a significantly elevated BUN/creatinine a potassium of 7.5 she was also volume overloaded and was complaining of shortness of breath. Patient is known to me from previous admission and has been very noncompliant. She denies having any fever or chills but does complain of nausea and poor appetite, she has also been missing several days of dialysis Past medical history is significant for ESRD Hypertension Secondary hyperparathyroidism Noncompliance Volume overload Hyperkalemia Current allergies multiple including Tylenol amoxicillin hydrocodone penicillin tramadol and IV contrast Social history: Reviewed from chart Family history: Reviewed from chart Home medication present medication reviewed Review of system fluid overload missing dialysis treatments of liquid cramps Otherwise unremarkable for all other systems Physical examination Vitals: Reviewed General: No acute distress/ appears to be in [id number] respiratory distress HEENT: Oral mucosa moist no pallor or icterus Neck: Supple without any JVD thyromegaly or nodular mass Chest:bilateral crackles Heart: Regular rate and rhythm S1-S2 heard no S3-S4 Abdomen: Soft nontender, bowel sounds present no renal bruit no suprapubic masses no CVA tenderness noted Extremity: patient has 2+ edema dry skin no peripheral cyanosis Endocrine: Thyroid not enlarged Psychiatric: No agitation and aggression noted Musculoskeletal: No joint effusion noted Labs and x-rays: Reviewed from this admission Medications and Allergies Allergies Allergy/AdvReac Type Severity Reaction Status Date / Time acetaminophen [From Lortab] Allergy Unknown Verified 11/03/18 16:59 amoxicillin Allergy Unknown Verified 07/03/18 20:57 hydrocodone [From Lortab] Allergy Unknown Verified 11/03/18 16:59 Penicillins Allergy Unknown Verified 05/19/18 13:02 tramadol Allergy Unknown Verified 07/03/18 20:57 IV contrast Allergy Rash Uncoded 01/15/17 17:55 Home Medications Medication Instructions Recorded Confirmed Last Taken Type AtorvaSTATin [Lipitor] 40 mg PO DAILY #30 tablet 12/03/18 12/26/18 Unknown Rx Dicyclomine [Bentyl] 10 mg PO QID PRN #30 capsule 12/03/18 12/26/18 Unknown Rx ISOSORBIDE MONOnitrate [Monoket] 20 mg PO DAILY #30 tablet 12/03/18 12/26/18 Unknown Rx Ondansetron [Zofran ODT TAB] 4 mg PO Q8HR #30 tab.rapdis 12/03/18 12/26/18 Unknown Rx amLODIPine [Norvasc] 10 mg PO DAILY #30 tablet 12/03/18 12/26/18 Unknown Rx cloNIDine-TTS PATCH [Catapres-Tts 1 patch TD Q7D #4 patch 12/03/18 12/26/18 Unknown Rx 0.1MG Patch] Minoxidil [Loniten] 5 mg PO QDAY #60 tablet 12/13/18 12/26/18 Unknown Rx Pantoprazole [Protonix TAB] 40 mg PO QDAY #30 tablet 12/13/18 12/26/18 Unknown Rx Insulin Regular, Human [HumuLIN R] 1 dose SUB-Q AC PRN #100 units 12/26/18 Unknown Rx hydrALAZINE [Apresoline TAB] 50 mg PO TID #90 tablet 12/26/18 Unknown Rx Active Meds: Active Medications Sodium Chloride (Nacl 0.9%) 100 mls @ 999 mls/hr IV LUIS PRN PRN Reason: Hypotension Exam - Vital Signs Vital signs: Vital Signs Temp Pulse Resp BP Pulse Ox 97.6 F 89 20 192/103 94 11/16/18 14:58 11/16/18 14:58 11/16/18 14:58 11/16/18 14:58 11/16/18 14:58 Results - Lab Results 11/20/18 03:53 11/20/18 03:53 Most recent lab results Calcium 7.9 mg/dL (8.4-10.2) L 11/16/18 15:28
[2018-11-16] MEDS: CALCIUM GLUCONATE 1,000 MG in NACL 0.9% 100 ML IV ONE ×2 (19:32→20:55)
[2018-11-16] MEDS: LASIX 100 MG in NACL 0.9% 50 ML IV ONE ×2 (19:33→21:40)
[2018-11-16] MEDS: PROVENTIL IH ONE ×2 (19:33→20:08)
[2018-11-16] MEDS: KIONEX PR ONE ×2 (19:33→19:43)
[2018-11-16] MEDS: SODIUM BICARBONATE IV ONE ×2 (19:34→20:55)
[2018-11-16] MEDS ORDERED: PROVENTIL IH PRN (20:35)
[2018-11-16] MEDS ORDERED: SODIUM CHLORIDE FLUSH SYRINGE 10 ML IV PRN (20:35)
[2018-11-16] MEDS: SODIUM CHLORIDE FLUSH SYRINGE 10 ML IV SCH (21:42)
[2018-11-16] MEDS: PEPCID IV SCH (21:42)
[2018-11-16] MEDS ORDERED: PEPCID IV SCH (22:00)
--- NOTE | 2018-11-16 22:24 | History and Physical Report ---
History of Present Illness Date of examination: 11/16/18 Date of admission: 11/16/18 18:42 Chief complaint: Shortness of breath, generalized pain, History of present illness: Patient is a 48-year-old female PMHx of ESRD on hemodialysis TTS, CHF, asthma, DM type II, hypertension, and peripheral neuropathy who presents to the ER with complaints of sudden shortness of breath and generalized pain. Patient states that the symptoms started while driving today in the morning, she went to see her nuclear fuel processing technician because of bleeding in her right eyes, patient states that she received an injection on the right eye and her daughter was driving her home, she suddenly developed severe shortness severe shortness of breath, inability to breathe, EMS was called and she was taking to the ER. Patient reports red eye pain, shortness of breath, denies chest pain, denies cough, denies palpitation, denies fever, denies chills. In the ER patient had a chest x-ray that showed worsening right pleural effusion, and compressing half of the hemithorax, mild perihilar , congestion and stable cardiomegaly, patient had a potassium level of 7.5, nephrology was called and patient was taking to urgent hemodialysis treatment. Past History Past Medical History: CAD, heart failure, hypertension, hyperlipidemia, renal failure Past Surgical History: Other Social history: lives with family Medications and Allergies Allergies Allergy/AdvReac Type Severity Reaction Status Date / Time acetaminophen [From Lortab] Allergy Unknown Verified 11/03/18 16:59 amoxicillin Allergy Unknown Verified 07/03/18 20:57 hydrocodone [From Lortab] Allergy Unknown Verified 11/03/18 16:59 Penicillins Allergy Unknown Verified 05/19/18 13:02 tramadol Allergy Unknown Verified 07/03/18 20:57 IV contrast Allergy Rash Uncoded 01/15/17 17:55 Home Medications Medication Instructions Recorded Confirmed Last Taken Type ALBUTEROL Inhaler (OR & NICU) 2 puff IH Q6H PRN 05/19/18 11/16/18 11/05/18 History [ProAir HFA Inhaler] Ibuprofen [Motrin 600 MG tab] 600 mg PO Q8H PRN 08/26/18 11/16/18 11/04/18 History ALBUTEROL NEB's [Proventil 0.083% 2.5 mg IH QID PRN #30 nebu 08/31/18 11/16/18 11/05/18 Rx NEBS] Fluticasone [Flonase] 1 spray NS QDAY PRN #30 bottle 08/31/18 11/16/18 11/05/18 Rx AtorvaSTATin [Lipitor] 20 mg PO DAILY #30 tablet 10/07/18 11/16/18 11/05/18 Rx Metoprolol [Lopressor TAB] 50 mg PO BID #60 tablet 10/07/18 11/16/18 11/05/18 Rx amLODIPine [Norvasc] 10 mg PO DAILY #30 tablet 10/07/18 11/16/18 11/05/18 Rx cloNIDine [Catapres] 0.2 mg PO TID #90 tablet 10/07/18 11/16/18 11/05/18 Rx hydrALAZINE [Apresoline TAB] 100 mg PO TID #90 tab 10/07/18 11/16/18 11/05/18 Rx Insulin Glargine [Lantus VIAL] 8 units SUB-Q QHS #1 vial 11/06/18 11/16/18 11/05/18 Rx Lispro Insulin [Humalog] 4 unit SUB-Q AC 30 Days units 11/06/18 11/16/18 11/05/18 Rx Active Meds: Active Medications Albuterol (Proventil) 2.5 mg IH Q4HRT PRN PRN Reason: Shortness Of Breath Famotidine (Pepcid) 10 mg IV BID [facility] Last Admin: 11/16/18 21:42 Dose: 10 mg Documented by: Sodium Chloride (Nacl 0.9%) 100 mls @ 999 mls/hr IV LUIS PRN PRN Reason: Hypotension Ondansetron HCl (Zofran) 4 mg IV Q8H PRN PRN Reason: Nausea And Vomiting Sodium Chloride (Sodium Chloride Flush Syringe 10 Ml) 10 ml IV BID [facility] Last Admin: 11/16/18 21:42 Dose: 10 ml Documented by: Sodium Chloride (Sodium Chloride Flush Syringe 10 Ml) 10 ml IV PRN PRN PRN Reason: LINE FLUSH Review of Systems Constitutional: chronic pain Eyes: right: pain, bilateral: photophobia, decreased vision, loss of vision Respiratory: shortness of breath, dyspnea on exertion, congestion Exam - Constitutional Vitals: Temp Pulse Resp BP Pulse Ox 97.4 F L 92 H 17 175/82 97 11/16/18 20:52 11/16/18 22:00 11/16/18 20:57 11/16/18 22:00 11/16/18 20:57 General appearance: Present: no acute distress - EENT ENT: hearing intact - Neck Neck: Present: supple, normal ROM - Respiratory Respiratory effort: normal Respiratory: bilateral: diminished - Cardiovascular Rhythm: regular - Extremities Extremities: no ischemia, No edema Peripheral Pulses: within normal limits - Abdominal General gastrointestinal: Present: non-tender, non-distended - Rectal Rectal Exam: deferred - Integumentary Integumentary: Present: clear - Musculoskeletal Musculoskeletal: strength equal bilaterally - Psychiatric Psychiatric: cooperative - Neurologic Neurologic: moves all extremities Results - Labs CBC & Chem 7: 11/17/18 04:12 11/17/18 04:12 Labs: Laboratory Last Values WBC 7.3 K/mm3 (4.5-11.0) 11/16/18 15:28 RBC 3.19 M/mm3 (3.65-5.03) L 11/16/18 15:28 Hgb 9.0 gm/dl (10.1-14.3) L 11/16/18 15:28 Hct 27.6 % (30.3-42.9) L 11/16/18 15:28 MCV 87 fl (79-97) 11/16/18 15:28 MCH 28 pg (28-32) 11/16/18 15:28 MCHC 33 % (30-34) 11/16/18 15:28 RDW 16.1 % (13.2-15.2) H 11/16/18 15:28 Plt Count 198 K/mm3 (140-440) 11/16/18 15:28 Lymph % (Auto) 9.1 % (13.4-35.0) L 11/16/18 15:28 [place] % (Auto) 6.3 % (0.0-7.3) 11/16/18 15:28 Eos % (Auto) 3.6 % (0.0-4.3) 11/16/18 15:28 Baso % (Auto) 2.4 % (0.0-1.8) H 11/16/18 15:28 Lymph # 0.7 K/mm3 (1.2-5.4) L 11/16/18 15:28 [place] # 0.5 K/mm3 (0.0-0.8) 11/16/18 15:28 Eos # 0.3 K/mm3 (0.0-0.4) 11/16/18 15:28 Baso # 0.2 K/mm3 (0.0-0.1) H 11/16/18 15:28 Seg Neutrophils % 78.6 % (40.0-70.0) H 11/16/18 15:28 Seg Neutrophils # 5.7 K/mm3 (1.8-7.7) 11/16/18 15:28 PT 15.4 Sec. (12.2-14.9) H 11/16/18 15:28 INR 1.15 (0.87-1.13) H 11/16/18 15:28 APTT 33.3 Sec. (24.2-36.6) 11/16/18 15:28 D-Dimer 4355.47 ng/mlDDU (0-234) H 11/16/18 15:28 Sodium 141 mmol/L (137-145) 11/16/18 15:28 Potassium 7.5 mmol/L (3.6-5.0) H* 11/16/18 15:28 Chloride 98.7 mmol/L (98-107) 11/16/18 15:28 Carbon Dioxide 18 mmol/L (22-30) L 11/16/18 15:28 Anion Gap 32 mmol/L 11/16/18 15:28 BUN 89 mg/dL (7-17) H 11/16/18 15:28 Creatinine 16.9 mg/dL (0.7-1.2) H 11/16/18 15:28 Estimated GFR 2 ml/min 11/16/18 15:28 BUN/Creatinine Ratio 5 % 11/16/18 15:28 Glucose 109 mg/dL (65-100) H 11/16/18 15:28 Calcium 7.9 mg/dL (8.4-10.2) L 11/16/18 15:28 Total Bilirubin 0.40 mg/dL (0.1-1.2) 11/16/18 15:28 AST 16 units/L (5-40) 11/16/18 15:28 ALT 13 units/L (7-56) 11/16/18 15:28 Alkaline Phosphatase 130 units/L (35-129) H 11/16/18 15:28 Troponin T 0.612 ng/mL (0.00-0.029) H* 11/16/18 18:47 Total Protein 7.2 g/dL (6.3-8.2) 11/16/18 15:28 Albumin 4.1 g/dL (3.9-5) 11/16/18 15:28 Albumin/Globulin Ratio 1.3 % 11/16/18 15:28 Triglycerides 73 mg/dL (2-149) 11/16/18 15:28 Cholesterol 126 mg/dL (50-199) 11/16/18 15:28 LDL Cholesterol Direct 63 mg/dL (50-130) 11/16/18 15:28 HDL Cholesterol 51 mg/dL (40-59) 11/16/18 15:28 Cholesterol/HDL Ratio 2.47 % 11/16/18 15:28 Assessment and Plan Assessment and plan: 1. ESRD on HD 2. Hyperkalemia requiring urgent HD 3. Hypercholesterolemia 4. Accelerated Hypertension 5. DM type II 6. Peripheral neuropathy (due to DM) 7. Ocular bleeding/pain 8. Chronic pain Plan: Patient is admitted to med telemetry Consults nephrology for emergent HD Morphine PRN for Pain control Resume home meds Accu-Chek ACHS with Insulin per sliding scale BP control Plan of care was discussed with patient, voiced understanding Patient's condition and plan of care was discussed with Dr. Quintanilla Advance Directives: Yes VTE prophylaxis?: Chemical Plan of care discussed with patient/family: Yes
[2018-11-17] MEDS ORDERED: MORPHINE PO PRN (04:46)
[2018-11-17 04:55] LABS: Basophils # (Auto) 0.1 K/mm3 (0.0-0.1); Basophils % (Auto) 1.3 % (0.0-1.8); Eosinophils # (Auto) 0.2 K/mm3 (0.0-0.4); Eosinophils % (Auto) 4.6 % (0.0-4.3); Hematocrit 25.6 % (30.3-42.9); Hemoglobin 8.5 gm/dl (10.1-14.3); Lymphocytes # (Auto) 1.2 K/mm3 (1.2-5.4); Lymphocytes % (Auto) 23.3 % (13.4-35.0); Mean Corpuscular HGB Conc 33 % (30-34); Mean Corpuscular Volume 86 fl (79-97); Monocytes # (Auto) 0.5 K/mm3 (0.0-0.8); Monocytes % (Auto) 9.8 % (0.0-7.3); Platelet Count 166 K/mm3 (140-440); Red Blood Count 2.99 M/mm3 (3.65-5.03); Red Cell Distribution Width 16.3 % (13.2-15.2)
[2018-11-17 05:11] LABS: Albumin 3.9 g/dL (3.9-5)
[2018-11-17] MEDS: ZOFRAN IV PRN ×3 (06:44→14:48)
[2018-11-17] MEDS ORDERED: PROVENTIL IH PRN (10:00)
[2018-11-17] MEDS: LOPRESSOR PO SCH ×2 (10:01→22:54)
[2018-11-17] MEDS: PEPCID IV SCH ×2 (10:02→22:51)
[2018-11-17] MEDS: NORVASC PO SCH (10:02)
[2018-11-17] MEDS: SODIUM CHLORIDE FLUSH SYRINGE 10 ML IV SCH ×2 (10:08→22:51)
[2018-11-17] MEDS: CATAPRES PO SCH ×3 (10:09→20:04)
[2018-11-17] MEDS ORDERED: FLONASE NS PRN (10:30)
[2018-11-17] MEDS ORDERED: IBUPROFEN PO PRN (10:30)
--- NOTE | 2018-11-17 10:56 | Progress Note ---
Assessment and Plan - Patient Problems (1) End-stage renal disease needing dialysis Current Visit: Yes Status: Chronic Plan to address problem: End stage renal disease We'll initiate hemodialysis again today She has missed several sessions of hemodialysis Patient's potassium is 5.2 Currently on Friday schedule (2) Acute diastolic heart failure Current Visit: No Status: Acute Plan to address problem: Acute diastolic heart failure I reviewed echocardiogram which showed left ventricular diastolic dysfunction with preserved left ventricular ejection fraction 50-55% Ultrafiltration with dialysis (3) Anemia of chronic disease Current Visit: No Status: Acute Plan to address problem: Moderate anemia hemoglobin 8.5 g per DL Etiology secondary to chronic kidney disease Monitor CBC (4) Hyperkalemia Current Visit: No Status: Acute Plan to address problem: Hyperkalemia Potassium 5.2 Will initiate hemodialysis Subjective Interval history: 48-year-old lady with medical history significant for hypertension, diabetes mellitus type 2, end-stage renal disease on hemodialysis via a right IJ catheter admitted having missed dialysis for several sessions with shortness of breath found to have severe hyperkalemia potassium of 7.5. Patient had urgent dialysis on 11/16/2018 currently in TTS schedule at [facility] dialysis in [place] Patient seen today complains of a knot in her chest and breast area reports previous mammogram was several years ago also essentially legally blind received some EYE injections prior to admission for some bleeding in the right eye. She admits to weight gain reports unable to comply with dialysis did not have appropriate transportation She does have some lower extremity swelling denies any shortness of breath Objective - Vital Signs Vital signs: Vital Signs - 12hr 11/16/18 11/16/18 11/16/18 23:00 23:15 23:30 Temperature Pulse Rate 99 H 99 H 99 H Respiratory Rate Blood Pressure 156/73 172/92 170/86 O2 Sat by Pulse Oximetry O2 Sat by Pulse Oximetry [ Anterior Bilateral Throughout] 11/16/18 11/17/18 11/17/18 23:35 05:35 06:04 Temperature 97.9 F 97.8 F Pulse Rate 99 H 100 H Respiratory 20 20 18 Rate Blood Pressure 175/88 178/88 O2 Sat by Pulse 90 Oximetry O2 Sat by Pulse 96 Oximetry [ Anterior Bilateral Throughout] 11/17/18 11/17/18 11/17/18 06:35 08:02 08:36 Temperature 99.5 F Pulse Rate 99 H Respiratory 20 18 19 Rate Blood Pressure 185/81 O2 Sat by Pulse 94 Oximetry O2 Sat by Pulse Oximetry [ Anterior Bilateral Throughout] 11/17/18 11/17/18 10:01 10:02 Temperature Pulse Rate 101 H 101 H Respiratory Rate Blood Pressure 180/82 180/82 O2 Sat by Pulse Oximetry O2 Sat by Pulse Oximetry [ Anterior Bilateral Throughout] - General Appearance General appearance: well-developed, well-nourished EENT: ATNC, mucous membranes dry, conjuctiva injected, other Neck: no JVD, no thyromegaly, supple Respiratory: Present: Decreased Breath Sounds Cardiology: regular, S1S2 Gastrointestinal: normal, normoactive bowel sounds Integumentary: no rash Neurologic: alert and oriented x3, CN 3-12 intact Musculoskeletal: deferred Psychiatric: mood/affect appropriate - Lab 11/17/18 04:12 11/17/18 04:12 Most recent lab results Calcium 8.0 mg/dL (8.4-10.2) L 11/17/18 04:12 - Imaging Chest x-ray: image reviewed (I reviewed chest x-ray with bilateral patchy opacities consistent with pulmonary congestion) Medications & Allergies - Medications Allergies/Adverse Reactions: Allergies acetaminophen [From Lortab] Allergy (Verified 11/03/18 16:59) Unknown amoxicillin Allergy (Verified 07/03/18 20:57) Unknown hydrocodone [From Lortab] Allergy (Verified 11/03/18 16:59) Unknown Penicillins Allergy (Verified 05/19/18 13:02) Unknown tramadol Allergy (Verified 07/03/18 20:57) Unknown IV contrast Allergy (Uncoded 01/15/17 17:55) Rash Home Medications: Home Medications Medication Instructions Recorded Confirmed Last Taken Type ALBUTEROL Inhaler (OR & NICU) 2 puff IH Q6H PRN 05/19/18 11/16/18 11/05/18 History [ProAir HFA Inhaler] Ibuprofen [Motrin 600 MG tab] 600 mg PO Q8H PRN 08/26/18 11/16/18 11/04/18 History ALBUTEROL NEB's [Proventil 0.083% 2.5 mg IH QID PRN #30 nebu 08/31/18 11/16/18 11/05/18 Rx NEBS] Fluticasone [Flonase] 1 spray NS QDAY PRN #30 bottle 08/31/18 11/16/18 11/05/18 Rx AtorvaSTATin [Lipitor] 20 mg PO DAILY #30 tablet 10/07/18 11/16/18 11/05/18 Rx Metoprolol [Lopressor TAB] 50 mg PO BID #60 tablet 10/07/18 11/16/18 11/05/18 Rx amLODIPine [Norvasc] 10 mg PO DAILY #30 tablet 10/07/18 11/16/18 11/05/18 Rx cloNIDine [Catapres] 0.2 mg PO TID #90 tablet 10/07/18 11/16/18 11/05/18 Rx hydrALAZINE [Apresoline TAB] 100 mg PO TID #90 tab 10/07/18 11/16/18 11/05/18 Rx Insulin Glargine [Lantus VIAL] 8 units SUB-Q QHS #1 vial 11/06/18 11/16/18 11/05/18 Rx Lispro Insulin [Humalog] 4 unit SUB-Q AC 30 Days units 11/06/18 11/16/18 11/05/18 Rx Active Medications: Generic Name Dose Route Start Last Admin Trade Name Freq PRN Reason Stop Dose Admin Albuterol 2.5 mg 11/17/18 10:00 Proventil IH QID PRN SHORTNESS OF BREATH/WHEEZING Amlodipine Besylate 10 mg 11/17/18 10:00 11/17/18 10:02 Norvasc PO 10 mg DAILY RADHA Administration Atorvastatin Calcium 20 mg 11/17/18 10:00 11/17/18 10:01 Lipitor PO 20 mg DAILY RADHA Administration Clonidine HCl 0.2 mg 11/17/18 10:00 11/17/18 10:09 Catapres PO Not Given TID RADHA Famotidine 10 mg 11/16/18 22:00 11/17/18 10:02 Pepcid IV 10 mg BID RADHA Administration Fluticasone Propionate 50 mcg 11/17/18 10:30 Flonase NS QDAY PRN Congestion Hydralazine HCl 100 mg 11/17/18 10:30 Apresoline PO TID RADHA Sodium Chloride 100 mls @ 999 mls/hr 11/16/18 18:57 Nacl 0.9% IV LUIS PRN Hypotension Ibuprofen 600 mg 11/17/18 10:30 Motrin PO Q8H PRN Pain Insulin Glargine 8 units 11/17/18 22:00 Lantus SUB-Q QHS [facility] Insulin Human Lispro 4 unit 11/17/18 11:30 Humalog SUB-Q AC [facility] Metoprolol Tartrate 50 mg 11/17/18 10:00 11/17/18 10:01 Lopressor PO 50 mg BID RADHA Administration Morphine Sulfate 5 mg 11/17/18 04:46 11/17/18 05:35 Morphine PO 5 mg Q4H PRN Administration Pain , Severe (7-10) Ondansetron HCl 4 mg 11/16/18 20:35 11/17/18 06:44 Zofran IV 4 mg Q8H PRN Administration Nausea And Vomiting Sodium Chloride 10 ml 11/16/18 22:00 11/17/18 10:08 Sodium Chloride Flush Syringe 10 Ml IV 10 ml BID RADHA Administration Sodium Chloride 10 ml 11/16/18 20:35 Sodium Chloride Flush Syringe 10 Ml IV PRN PRN LINE FLUSH
[2018-11-17] MEDS: APRESOLINE PO SCH ×3 (11:43→20:04)
[2018-11-17] MEDS: HumaLOG SUB-Q SCH ×2 (13:37→16:40)
--- NOTE | 2018-11-17 16:55 | Progress Note ---
Assessment and Plan Assessment and plan: Patient is a 48-year-old woman with a history of ESRD on hemodialysis TTS, CHF, asthma, DM type II, hypertension, blindiness and peripheral neuropathy who presents to [facility] ER with shortness of breath. Patient reports missing at one week of hemodialysis 1. ESRD on HD 2. Hyperkalemia requiring urgent HD 3. Hypercholesterolemia 4. Accelerated Hypertension 5. DM type II 6. Peripheral neuropathy (due to DM) 7. Ocular bleeding/pain 8. Chronic pain Plan: Patient is admitted to med telemetry Consults nephrology for emergent HD Morphine PRN for Pain control Resume home meds Accu-Chek ACHS with Insulin per sliding scale BP control History Interval history: Patient was seen and examined. Follow-up on current diagnosis of Missing HD which she admits to. Overnight uneventful. Patient denies any chest pain, shortness breath, nausea/vomiting or severe headaches. Imaging, nursing note, chart, labs and old chart reviewed. Discussed with patient. Hospitalist Physical - Physical exam Narrative exam: GEN: chronic disable appearing, NAD, Awake, Alert, Orientated HEENT: NCAT, EOMI, PERRL, OP Clear NECK: supple, no adenopathy, no thyromegaly, no JVD CVS/HEART: RRR, normal S1S2, pulses present bilaterally CHEST/LUNGS: CTA B, Symmetrical chest expansion, good air entry bilaterally GI/Abdomen: soft, NTND, good bowel sounds, no guarding or rebound /Bladder: no suprapubic tenderness, no CVA or paraspinal tenderness EXT/Skin: no c/c/e, no obvious rash MSK: FROM x 4, right TMA Neuro: CN 2-12 grossly intact, no new focal deficits Psych: calm - Constitutional Vitals: Temp Pulse Resp BP Pulse Ox 99.5 F 87 19 182/87 88 11/17/18 08:02 11/17/18 13:28 11/17/18 08:36 11/17/18 13:28 11/17/18 13:28 General appearance: Present: no acute distress Results - Labs CBC & Chem 7: 11/17/18 04:12 11/17/18 04:12 Labs: Laboratory Last Values WBC 5.0 K/mm3 (4.5-11.0) 11/17/18 04:12 RBC 2.99 M/mm3 (3.65-5.03) L 11/17/18 04:12 Hgb 8.5 gm/dl (10.1-14.3) L 11/17/18 04:12 Hct 25.6 % (30.3-42.9) L 11/17/18 04:12 MCV 86 fl (79-97) 11/17/18 04:12 MCH 28 pg (28-32) 11/17/18 04:12 MCHC 33 % (30-34) 11/17/18 04:12 RDW 16.3 % (13.2-15.2) H 11/17/18 04:12 Plt Count 166 K/mm3 (140-440) 11/17/18 04:12 Lymph % (Auto) 23.3 % (13.4-35.0) 11/17/18 04:12 Worth % (Auto) 9.8 % (0.0-7.3) H 11/17/18 04:12 Eos % (Auto) 4.6 % (0.0-4.3) H 11/17/18 04:12 Baso % (Auto) 1.3 % (0.0-1.8) 11/17/18 04:12 Lymph # 1.2 K/mm3 (1.2-5.4) 11/17/18 04:12 Worth # 0.5 K/mm3 (0.0-0.8) 11/17/18 04:12 Eos # 0.2 K/mm3 (0.0-0.4) 11/17/18 04:12 Baso # 0.1 K/mm3 (0.0-0.1) 11/17/18 04:12 Seg Neutrophils % 61.0 % (40.0-70.0) 11/17/18 04:12 Seg Neutrophils # 3.0 K/mm3 (1.8-7.7) 11/17/18 04:12 PT 15.4 Sec. (12.2-14.9) H 11/16/18 15:28 INR 1.15 (0.87-1.13) H 11/16/18 15:28 APTT 33.3 Sec. (24.2-36.6) 11/16/18 15:28 D-Dimer 4355.47 ng/mlDDU (0-234) H 11/16/18 15:28 Sodium 146 mmol/L (137-145) H 11/17/18 04:12 Potassium 5.2 mmol/L (3.6-5.0) H D 11/17/18 04:12 Chloride 104.3 mmol/L (98-107) 11/17/18 04:12 Carbon Dioxide 25 mmol/L (22-30) D 11/17/18 04:12 Anion Gap 22 mmol/L 11/17/18 04:12 BUN 43 mg/dL (7-17) H 11/17/18 04:12 Creatinine 10.7 mg/dL (0.7-1.2) H 11/17/18 04:12 Estimated GFR 4 ml/min 11/17/18 04:12 BUN/Creatinine Ratio 4 % 11/17/18 04:12 Glucose 101 mg/dL (65-100) H 11/17/18 04:12 POC Glucose 96 (70-105) 11/17/18 13:30 Calcium 8.0 mg/dL (8.4-10.2) L 11/17/18 04:12 Total Bilirubin 0.30 mg/dL (0.1-1.2) 11/17/18 04:12 AST 14 units/L (5-40) 11/17/18 04:12 ALT 10 units/L (7-56) 11/17/18 04:12 Alkaline Phosphatase 110 units/L (35-129) 11/17/18 04:12 Troponin T 0.612 ng/mL (0.00-0.029) H* 11/16/18 18:47 Total Protein 6.8 g/dL (6.3-8.2) 11/17/18 04:12 Albumin 3.9 g/dL (3.9-5) 11/17/18 04:12 Albumin/Globulin Ratio 1.3 % 11/17/18 04:12 Triglycerides 73 mg/dL (2-149) 11/16/18 15:28 Cholesterol 126 mg/dL (50-199) 11/16/18 15:28 LDL Cholesterol Direct 63 mg/dL (50-130) 11/16/18 15:28 HDL Cholesterol 51 mg/dL (40-59) 11/16/18 15:28 Cholesterol/HDL Ratio 2.47 % 11/16/18 15:28 Active Medications - Current Medications Current Medications: Generic Name Dose Route Start Last Admin Trade Name Freq PRN Reason Stop Dose Admin Albuterol 2.5 mg 11/17/18 10:00 Proventil IH QID PRN SHORTNESS OF BREATH/WHEEZING Amlodipine Besylate 10 mg 11/17/18 10:00 11/17/18 10:02 Norvasc PO 10 mg DAILY RADHA Administration Atorvastatin Calcium 20 mg 11/17/18 10:00 11/17/18 10:01 Lipitor PO 20 mg DAILY [facility] Administration Clonidine HCl 0.2 mg 11/17/18 10:00 11/17/18 14:00 Catapres PO Not Given TID [facility] Famotidine 10 mg 11/16/18 22:00 11/17/18 10:02 Pepcid IV 10 mg BID [facility] Administration Fluticasone Propionate 50 mcg 11/17/18 10:30 Flonase NS QDAY PRN Congestion Hydralazine HCl 100 mg 11/17/18 10:30 11/17/18 14:00 Apresoline PO Not Given TID [facility] Sodium Chloride 100 mls @ 999 mls/hr 11/16/18 18:57 Nacl 0.9% IV LUIS PRN Hypotension Ibuprofen 600 mg 11/17/18 10:30 Motrin PO Q8H PRN Pain Insulin Glargine 8 units 11/17/18 22:00 Lantus SUB-Q QHS [facility] Insulin Human Lispro 4 unit 11/17/18 11:30 11/17/18 16:40 Humalog SUB-Q Not Given [facility] Metoprolol Tartrate 50 mg 11/17/18 10:00 11/17/18 10:01 Lopressor PO 50 mg BID [facility] Administration Morphine Sulfate 5 mg 11/17/18 04:46 11/17/18 05:35 Morphine PO 5 mg Q4H PRN Administration Pain , Severe (7-10) Ondansetron HCl 4 mg 11/16/18 20:35 11/17/18 14:48 Zofran IV 4 mg Q8H PRN Administration Nausea And Vomiting Sodium Chloride 10 ml 11/16/18 22:00 11/17/18 10:08 Sodium Chloride Flush Syringe 10 Ml IV 10 ml BID RADHA Administration Sodium Chloride 10 ml 11/16/18 20:35 Sodium Chloride Flush Syringe 10 Ml IV PRN PRN LINE FLUSH
[2018-11-17] MEDS: REGLAN IV PRN (22:51)
[2018-11-17] MEDS: APRESOLINE IV SCH (22:52)
[2018-11-17] MEDS: LANTUS SUB-Q SCH (22:54)
[2018-11-18] MEDS: APRESOLINE IV SCH ×6 (02:54→21:41)
[2018-11-18 05:45] LABS: Hematocrit 25.1 % (30.3-42.9); Hemoglobin 8.4 gm/dl (10.1-14.3); Mean Corpuscular HGB Conc 34 % (30-34); Mean Corpuscular Volume 85 fl (79-97); Platelet Count 176 K/mm3 (140-440); Red Blood Count 2.96 M/mm3 (3.65-5.03); Red Cell Distribution Width 15.5 % (13.2-15.2)
[2018-11-18 06:08] LABS: Calcium 7.5 mg/dL (8.4-10.2)
[2018-11-18] MEDS: HumaLOG SUB-Q SCH ×3 (09:30→17:37)
[2018-11-18] MEDS: NORVASC PO SCH (10:20)
[2018-11-18] MEDS: CATAPRES PO SCH ×3 (10:21→21:29)
[2018-11-18] MEDS: APRESOLINE PO SCH ×3 (10:21→21:29)
[2018-11-18] MEDS: LOPRESSOR PO SCH ×2 (10:21→21:35)
[2018-11-18] MEDS: PEPCID IV SCH ×2 (10:22→21:31)
[2018-11-18] MEDS: ZOFRAN IV PRN (10:22)
[2018-11-18] MEDS: SODIUM CHLORIDE FLUSH SYRINGE 10 ML IV SCH ×2 (10:27→21:33)
[2018-11-18] MEDS: MORPHINE IV PRN ×2 (11:39→21:30)
[2018-11-18] MEDS ORDERED: PHENERGAN PO STA (11:47)
--- NOTE | 2018-11-18 12:25 | Progress Note ---
Assessment and Plan - Patient Problems (1) End-stage renal disease needing dialysis Current Visit: Yes Status: Chronic Plan to address problem: End stage renal disease She has missed several sessions of hemodialysis Received hemodialysis on 11/16/2018 11/17/2018 Currently on Friday schedule (2) Acute diastolic heart failure Current Visit: No Status: Acute Plan to address problem: Acute diastolic heart failure I reviewed echocardiogram which showed left ventricular diastolic dysfunction with preserved left ventricular ejection fraction 50-55% Ultrafiltration with dialysis (3) Anemia of chronic disease Current Visit: No Status: Acute Plan to address problem: Moderate anemia hemoglobin 8.5 g per DL Etiology secondary to chronic kidney disease We'll give epogen with dialysis obtain anemia panel. Monitor CBC (4) Nausea & vomiting Current Visit: Yes Status: Acute Qualifiers: Vomiting Intractability: intractable Plan to address problem: Nausea and vomitting intractable - Will give one dose of phenergan and observe response. (5) Hyperkalemia Current Visit: No Status: Acute Plan to address problem: Hyperkalemia:resolved. Potassium 5.2 continue hemodialysis We will follow with you thank you for this consultation Subjective Interval history: 48-year-old lady with medical history significant for hypertension, diabetes mellitus type 2, end-stage renal disease on hemodialysis via a right IJ catheter admitted having missed dialysis for several sessions with shortness of breath found to have severe hyperkalemia potassium of 7.5. Patient had urgent dialysis on 11/16/2018 currently in TTS schedule at [facility] dialysis in [place]. Patient seen today She complains of nausea and reports no improvement with Zofran Requested another medicine for nausea tolerated dialysis well on 11/17/2018 She denies any worsening shortness of breath., Orthopnea PND Objective - Vital Signs Vital signs: Vital Signs - 12hr 11/18/18 11/18/18 11/18/18 02:54 05:41 05:43 Temperature 98.0 F 98.0 F Pulse Rate 77 75 75 Respiratory 16 18 Rate Blood Pressure 159/76 167/77 167/77 O2 Sat by Pulse 89 94 Oximetry 11/18/18 11/18/18 11/18/18 07:59 10:00 10:20 Temperature 98.5 F Pulse Rate 83 83 Respiratory 16 Rate Blood Pressure 164/67 164/67 O2 Sat by Pulse 95 94 Oximetry 11/18/18 11/18/18 10:21 10:27 Temperature Pulse Rate 83 83 Respiratory Rate Blood Pressure 164/67 164/67 O2 Sat by Pulse Oximetry - General Appearance General appearance: well-developed, well-nourished EENT: ATNC, PERRL, mucous membranes moist Neck: no JVD, JVD Respiratory: Present: Clear to Ascultation Cardiology: regular, S1S2 Gastrointestinal: normal, normoactive bowel sounds Integumentary: no rash Neurologic: alert and oriented x3, CN 3-12 intact Musculoskeletal: deferred Psychiatric: mood/affect appropriate - Lab 11/18/18 04:16 11/18/18 04:16 Most recent lab results Calcium 7.5 mg/dL (8.4-10.2) L 11/18/18 04:16 - Imaging Chest x-ray: image reviewed (I reviewed chest x-ray with patchy opacities bilaterally) Medications & Allergies - Medications Allergies/Adverse Reactions: Allergies acetaminophen [From Lortab] Allergy (Verified 11/03/18 16:59) Unknown amoxicillin Allergy (Verified 07/03/18 20:57) Unknown hydrocodone [From Lortab] Allergy (Verified 11/03/18 16:59) Unknown Penicillins Allergy (Verified 05/19/18 13:02) Unknown tramadol Allergy (Verified 07/03/18 20:57) Unknown IV contrast Allergy (Uncoded 01/15/17 17:55) Rash Home Medications: Home Medications Medication Instructions Recorded Confirmed Last Taken Type ALBUTEROL Inhaler (OR & NICU) 2 puff IH Q6H PRN 05/19/18 11/16/18 11/05/18 History [ProAir HFA Inhaler] Ibuprofen [Motrin 600 MG tab] 600 mg PO Q8H PRN 08/26/18 11/16/18 11/04/18 History ALBUTEROL NEB's [Proventil 0.083% 2.5 mg IH QID PRN #30 nebu 08/31/18 11/16/18 11/05/18 Rx NEBS] Fluticasone [Flonase] 1 spray NS QDAY PRN #30 bottle 08/31/18 11/16/18 11/05/18 Rx AtorvaSTATin [Lipitor] 20 mg PO DAILY #30 tablet 10/07/18 11/16/18 11/05/18 Rx Metoprolol [Lopressor TAB] 50 mg PO BID #60 tablet 10/07/18 11/16/18 11/05/18 Rx amLODIPine [Norvasc] 10 mg PO DAILY #30 tablet 10/07/18 11/16/18 11/05/18 Rx cloNIDine [Catapres] 0.2 mg PO TID #90 tablet 10/07/18 11/16/18 11/05/18 Rx hydrALAZINE [Apresoline TAB] 100 mg PO TID #90 tab 10/07/18 11/16/18 11/05/18 Rx Insulin Glargine [Lantus VIAL] 8 units SUB-Q QHS #1 vial 11/06/18 11/16/18 11/05/18 Rx Lispro Insulin [Humalog] 4 unit SUB-Q AC 30 Days units 11/06/18 11/16/18 11/05/18 Rx Refresh Optive Eye Drops 3 drops OD TID PRN 11/17/18 11/17/18 1 Day Ago History ~11/16/18 Active Medications: Generic Name Dose Route Start Last Admin Trade Name Freq PRN Reason Stop Dose Admin Albuterol 2.5 mg 11/17/18 10:00 Proventil IH QID PRN SHORTNESS OF BREATH/WHEEZING Amlodipine Besylate 10 mg 11/17/18 10:00 11/18/18 10:20 Norvasc PO 10 mg DAILY RADHA Administration Atorvastatin Calcium 20 mg 11/17/18 10:00 11/18/18 10:19 Lipitor PO 20 mg DAILY RADHA Administration Clonidine HCl 0.2 mg 11/17/18 10:00 11/18/18 10:21 Catapres PO 0.2 mg TID RADHA Administration Famotidine 10 mg 11/16/18 22:00 11/18/18 10:22 Pepcid IV 10 mg BID RADHA Administration Fluticasone Propionate 50 mcg 11/17/18 10:30 Flonase NS QDAY PRN Congestion Hydralazine HCl 100 mg 11/17/18 10:30 11/18/18 10:21 Apresoline PO 100 mg TID RADHA Administration Hydralazine HCl 20 mg 11/17/18 22:00 11/18/18 10:27 Apresoline IV Not Given Q4HR RADHA Sodium Chloride 100 mls @ 999 mls/hr 11/16/18 18:57 Nacl 0.9% IV LUIS PRN Hypotension Ibuprofen 600 mg 11/17/18 10:30 Motrin PO Q8H PRN Pain Insulin Glargine 8 units 11/17/18 22:00 11/17/18 22:54 [facility] Human Lispro 4 unit 11/17/18 11:30 11/18/18 09:30 Humalog SUB-Q Not Given [facility] Metoclopramide HCl 10 mg 11/17/18 20:33 11/17/18 22:51 Reglan IV 10 mg Q6H PRN Administration Nausea And Vomiting Metoprolol Tartrate 50 mg 11/17/18 10:00 11/18/18 10:21 Lopressor PO 50 mg BID [facility] Administration Morphine Sulfate 5 mg 11/17/18 04:46 11/17/18 05:35 Morphine PO 5 mg Q4H PRN Administration Pain , Severe (7-10) Morphine Sulfate 2 mg 11/18/18 11:00 11/18/18 11:39 Morphine IV 2 mg Q8H PRN Administration Pain, Moderate (4-6) Ondansetron HCl 4 mg 11/16/18 20:35 11/18/18 10:22 Zofran IV 4 mg Q8H PRN Administration Nausea And Vomiting Sodium Chloride 10 ml 11/16/18 22:00 11/18/18 10:27 Sodium Chloride Flush Syringe 10 Ml IV 10 ml BID RADHA Administration Sodium Chloride 10 ml 11/16/18 20:35 Sodium Chloride Flush Syringe 10 Ml IV PRN PRN LINE FLUSH
--- NOTE | 2018-11-18 16:31 | Progress Note ---
Assessment and Plan Patient is a 48-year-old woman with a history of ESRD on hemodialysis TTS, CHF, asthma, DM type II, hypertension, blindiness and peripheral neuropathy who presents to [facility] ER with shortness of breath. Patient reports missing one week of hemodialysis 1. ESRD on HD 2. Hyperkalemia requiring urgent HD 3. Hypercholesterolemia 4. Accelerated Hypertension -controlled 5. DM type II 6. Peripheral neuropathy (due to DM) 7. Ocular bleeding/pain 8. Chronic pain Plan: Consults nephrology to continue with HD on TTS Hypokalemia corrected Morphine PRN for Pain control Sliding scale insulin, with consistent carbohydrate diet Accu-Chek ACHS with Insulin per sliding scale Comments patient on gabapentin for peripheral neuropathy Resume home meds DVT prophylaxis with heparin Subjective Date of service: 11/18/18 Principal diagnosis: ESRD on HD, hyper kalemia, accelerated HTN, DMT2 Interval history: Patient seen and examined today. Complaining of headache, nausea or vomiting. Objective - Exam Narrative Exam: Constitutional: Well-nourished well-developed. In no distress Head: Normocephalic atraumatic Eyes: Pupils are equal round and reactive to light Nose: No enlarged turbinates, no septal deviation. Mouth: Moist mucous membranes. Neck: Supple no thyromegaly. No bruit. No JVD Heart: Regular rate and rhythm, S1-S2 normal. No rubs murmurs or gallop Lungs: Clear to auscultation bilaterally. no rales or rhonchi Abdomen: Soft, nontender. Bowel sound are present. Extremities: No edema, no cyanosis, no clubbing. Neuro: Alert oriented Oriented x3. No focal sensory or motor deficit. Skin: No rashes or hyperpigmented spots Musculoskeletal system: No joint pain or swelling Hematological: No petechia or subcutanous hemorrhages. Immunological: No multiple septic spots on the skin Lymphatic: No generalized lymphadenopathy Psychiatry: Euthymic. Calm. - Constitutional Vitals: Vital Signs - 12hr 11/18/18 11/18/18 11/18/18 05:41 05:43 07:59 Temperature 98.0 F 98.5 F Pulse Rate 75 75 83 Respiratory 18 16 Rate Blood Pressure 167/77 167/77 164/67 O2 Sat by Pulse 94 95 Oximetry 11/18/18 11/18/18 11/18/18 10:00 10:20 10:21 Temperature Pulse Rate 83 83 Respiratory 20 Rate Blood Pressure 164/67 164/67 O2 Sat by Pulse 94 Oximetry 11/18/18 11/18/18 11/18/18 10:27 13:44 13:45 Temperature Pulse Rate 83 77 78 Respiratory Rate Blood Pressure 164/67 124/61 124/61 O2 Sat by Pulse Oximetry - Labs CBC & Chem 7: 11/18/18 04:16 11/18/18 04:16 Labs: Abnormal lab results 11/18/18 11/18/18 Range/Units 04:16 04:16 RBC 2.96 L (3.65-5.03) M/mm3 Hgb 8.4 L (10.1-14.3) gm/dl Hct 25.1 L (30.3-42.9) % RDW 15.5 H (13.2-15.2) % BUN 21 H (7-17) mg/dL Creatinine 7.0 H (0.7-1.2) mg/dL Calcium 7.5 L (8.4-10.2) mg/dL
[2018-11-18] MEDS: HEPARIN SUB-Q SCH (21:30)
[2018-11-18] MEDS: REGLAN IV PRN (21:32)
[2018-11-18] MEDS: LANTUS SUB-Q SCH (21:32)
[2018-11-19] MEDS: APRESOLINE IV SCH ×5 (02:23→23:05)
[2018-11-19 05:29] LABS: Hematocrit 25.2 % (30.3-42.9); Hemoglobin 8.2 gm/dl (10.1-14.3); Mean Corpuscular HGB Conc 33 % (30-34); Mean Corpuscular Volume 86 fl (79-97); Platelet Count 175 K/mm3 (140-440); Red Blood Count 2.92 M/mm3 (3.65-5.03); Red Cell Distribution Width 15.7 % (13.2-15.2)
[2018-11-19 05:47] LABS: Calcium 7.4 mg/dL (8.4-10.2)
[2018-11-19] MEDS ORDERED: NACL 0.9% 100 ML IV PRN (05:55)
[2018-11-19] MEDS: APRESOLINE PO SCH ×3 (09:13→23:03)
[2018-11-19] MEDS: LOPRESSOR PO SCH ×2 (09:13→23:02)
[2018-11-19] MEDS: CATAPRES PO SCH ×3 (09:13→23:14)
[2018-11-19] MEDS: PEPCID IV SCH ×2 (09:14→23:03)
[2018-11-19] MEDS: NORVASC PO SCH (09:14)
[2018-11-19] MEDS: HumaLOG SUB-Q SCH ×2 (09:15→12:21)
[2018-11-19] MEDS: HEPARIN SUB-Q SCH ×2 (09:15→23:15)
[2018-11-19] MEDS: SODIUM CHLORIDE FLUSH SYRINGE 10 ML IV SCH ×2 (09:16→23:15)
--- NOTE | 2018-11-19 10:38 | Progress Note ---
Assessment and Plan Patient is a 48-year-old woman with a history of ESRD on hemodialysis TTS, CHF, asthma, DM type II, hypertension, blindiness and peripheral neuropathy who presents to [facility] with shortness of breath. Patient reports missing one week of hemodialysis 1. ESRD on HD TTS 2. Hyperkalemia requiring urgent HD 3. Hypercholesterolemia 4. Accelerated Hypertension -controlled 5. DM type II 6. Peripheral neuropathy (due to DM) 7. Ocular bleeding/pain 8. Chronic pain Plan: Consults nephrology to continue with HD on TTS Hyperkalemia - may require another HD session to correct Morphine PRN for Pain control Sliding scale insulin, with consistent carbohydrate diet Accu-Chek ACHS with Insulin per sliding scale Comments patient on gabapentin for peripheral neuropathy Resume home meds DVT prophylaxis with heparin Disposition: Possible Discharge tomorrow after HD and K level corrected Subjective Date of service: 11/19/18 Principal diagnosis: ESRD on HD, hyper kalemia, accelerated HTN, DMT2 Interval history: Patient seen and examined today. Still having headache. Nausea and vomiting improved. Objective - Exam Narrative Exam: Constitutional: Well-nourished well-developed. In no distress Head: Normocephalic atraumatic Eyes: Pupils are equal round and reactive to light Nose: No enlarged turbinates, no septal deviation. Mouth: Moist mucous membranes. Neck: Supple no thyromegaly. No bruit. No JVD Heart: Regular rate and rhythm, S1-S2 normal. No rubs murmurs or gallop Lungs: Clear to auscultation bilaterally. no rales or rhonchi Abdomen: Soft, nontender. Bowel sound are present. Extremities: No edema, no cyanosis, no clubbing. Neuro: Alert oriented Oriented x3. No focal sensory or motor deficit. Skin: No rashes or hyperpigmented spots Musculoskeletal system: No joint pain or swelling Hematological: No petechia or subcutanous hemorrhages. Immunological: No multiple septic spots on the skin Lymphatic: No generalized lymphadenopathy Psychiatry: Euthymic. Calm. - Constitutional Vitals: Vital Signs - 12hr 11/18/18 11/19/18 11/19/18 22:58 02:23 03:55 Temperature 97.7 F 98.2 F Pulse Rate 69 65 72 Respiratory 16 16 Rate Blood Pressure 114/58 114/58 152/72 O2 Sat by Pulse 94 93 Oximetry 11/19/18 11/19/18 11/19/18 05:52 07:50 09:13 Temperature 98.1 F Pulse Rate 74 70 Respiratory 18 Rate Blood Pressure 152/72 158/77 158/77 O2 Sat by Pulse Oximetry 11/19/18 09:14 Temperature Pulse Rate 70 Respiratory Rate Blood Pressure 158/77 O2 Sat by Pulse Oximetry - Labs CBC & Chem 7: 11/19/18 04:37 11/19/18 04:37 Labs: Abnormal lab results 11/19/18 11/19/18 Range/Units 04:37 04:37 RBC 2.92 L (3.65-5.03) M/mm3 Hgb 8.2 L (10.1-14.3) gm/dl Hct 25.2 L (30.3-42.9) % RDW 15.7 H (13.2-15.2) % Potassium 5.3 H (3.6-5.0) mmol/L Chloride 96.1 L (98-107) mmol/L BUN 30 H (7-17) mg/dL Creatinine 8.4 H (0.7-1.2) mg/dL Glucose 144 H (65-100) mg/dL Calcium 7.4 L (8.4-10.2) mg/dL
--- NOTE | 2018-11-19 11:56 | Progress Note ---
Assessment and Plan - Patient Problems (1) End-stage renal disease needing dialysis Current Visit: Yes Status: Chronic Plan to address problem: End stage renal disease She has missed several sessions of hemodialysis Received hemodialysis on 11/16/2018 11/17/2018 Currently on Friday schedule (2) Acute diastolic heart failure Current Visit: No Status: Acute Plan to address problem: Acute diastolic heart failure I reviewed echocardiogram which showed left ventricular diastolic dysfunction with preserved left ventricular ejection fraction 50-55% Ultrafiltration with dialysis (3) Anemia of chronic disease Current Visit: No Status: Acute Plan to address problem: Moderate anemia hemoglobin 8.5 g per DL Etiology secondary to chronic kidney disease We'll give epogen with dialysis obtain anemia panel. Monitor CBC (4) Nausea & vomiting Current Visit: Yes Status: Acute Qualifiers: Vomiting Intractability: intractable Plan to address problem: Nausea and vomitting intractable -Reports improvement with Reglan probable diabetic gastroparesis (5) Hyperkalemia Current Visit: No Status: Acute Plan to address problem: Hyperkalemia:resolved. Potassium 5.3 continue hemodialysis We will follow with you thank you for this consultation Subjective Principal diagnosis: ESRD on HD, hyper kalemia, accelerated HTN, DMT2 Interval history: 48-year-old lady with medical history significant for hypertension, diabetes mellitus type 2, end-stage renal disease on hemodialysis via a right IJ catheter admitted having missed dialysis for several sessions with shortness of breath found to have severe hyperkalemia potassium of 7.5. Patient had urgent dialysis on 11/16/2018 currently in TTS schedule at [facility] dialysis in [place]. Patient seen today She reports improvement in the nausea Denies any worsening shortness of breath denies any orthopnea. Plan for dialysis today Objective - Vital Signs Vital signs: Vital Signs - 12hr 11/19/18 11/19/18 11/19/18 02:23 03:55 05:52 Temperature 98.2 F Pulse Rate 65 72 74 Respiratory 16 Rate Blood Pressure 114/58 152/72 152/72 O2 Sat by Pulse 93 Oximetry 11/19/18 11/19/18 11/19/18 07:50 09:13 09:14 Temperature 98.1 F Pulse Rate 70 70 Respiratory 18 Rate Blood Pressure 158/77 158/77 158/77 O2 Sat by Pulse Oximetry 11/19/18 10:00 Temperature Pulse Rate Respiratory Rate Blood Pressure O2 Sat by Pulse 94 Oximetry - General Appearance General appearance: well-developed, well-nourished EENT: ATNC, other (nearly blind) Neck: no JVD Cardiology: regular, S1S2 Gastrointestinal: normal, normoactive bowel sounds Integumentary: no rash Neurologic: no focal deficit Psychiatric: mood/affect appropriate - Lab 11/19/18 04:37 11/19/18 04:37 Most recent lab results Calcium 7.4 mg/dL (8.4-10.2) L 11/19/18 04:37 - Imaging Chest x-ray: other (I reviewed chest x-ray patchy opacities bilaterally) Medications & Allergies - Medications Allergies/Adverse Reactions: Allergies acetaminophen [From Lortab] Allergy (Verified 11/03/18 16:59) Unknown amoxicillin Allergy (Verified 07/03/18 20:57) Unknown hydrocodone [From Lortab] Allergy (Verified 11/03/18 16:59) Unknown Penicillins Allergy (Verified 05/19/18 13:02) Unknown tramadol Allergy (Verified 07/03/18 20:57) Unknown IV contrast Allergy (Uncoded 01/15/17 17:55) Rash Home Medications: Home Medications Medication Instructions Recorded Confirmed Last Taken Type ALBUTEROL Inhaler (OR & NICU) 2 puff IH Q6H PRN 05/19/18 11/16/18 11/05/18 History [ProAir HFA Inhaler] Ibuprofen [Motrin 600 MG tab] 600 mg PO Q8H PRN 08/26/18 11/16/18 11/04/18 History ALBUTEROL NEB's [Proventil 0.083% 2.5 mg IH QID PRN #30 nebu 08/31/18 11/16/18 11/05/18 Rx NEBS] Fluticasone [Flonase] 1 spray NS QDAY PRN #30 bottle 08/31/18 11/16/18 11/05/18 Rx AtorvaSTATin [Lipitor] 20 mg PO DAILY #30 tablet 10/07/18 11/16/18 11/05/18 Rx Metoprolol [Lopressor TAB] 50 mg PO BID #60 tablet 10/07/18 11/16/18 11/05/18 Rx amLODIPine [Norvasc] 10 mg PO DAILY #30 tablet 10/07/18 11/16/1811/05/19 Rx cloNIDine [Catapres] 0.2 mg PO TID #90 tablet 10/07/18 11/16/18 11/05/18 Rx hydrALAZINE [Apresoline TAB] 100 mg PO TID #90 tab 10/07/18 11/16/18 11/05/18 Rx Insulin Glargine [Lantus VIAL] 8 units SUB-Q QHS #1 vial 11/06/18 11/16/18 11/05/18 Rx Lispro Insulin [Humalog] 4 unit SUB-Q AC 30 Days units 11/06/18 11/16/18 11/05/18 Rx Refresh Optive Eye Drops 3 drops OD TID PRN 11/17/18 11/17/18 1 Day Ago History ~11/16/18 Active Medications: Generic Name Dose Route Start Last Admin Trade Name Freq PRN Reason Stop Dose Admin Albuterol 2.5 mg 11/17/18 10:00 Proventil IH QID PRN SHORTNESS OF BREATH/WHEEZING Amlodipine Besylate 10 mg 11/17/18 10:00 11/19/18 09:14 Norvasc PO 10 mg DAILY RADHA Administration Atorvastatin Calcium 20 mg 11/17/18 10:00 11/19/18 09:14 Lipitor PO 20 mg DAILY RADHA Administration Clonidine HCl 0.2 mg 11/17/18 10:00 11/19/18 09:13 Catapres PO 0.2 mg TID RADHA Administration Famotidine 10 mg 11/16/18 22:00 11/19/18 09:14 Pepcid IV 10 mg BID RADHA Administration Fluticasone Propionate 50 mcg 11/17/18 10:30 Flonase NS QDAY PRN Congestion Heparin Sodium (Porcine) 5,000 unit 11/18/18 22:00 11/19/18 09:15 Heparin SUB-Q Not Given Q12HR RADHA Hydralazine HCl 100 mg 11/17/18 10:30 11/19/18 09:13 Apresoline PO 100 mg TID RADHA Administration Hydralazine HCl 20 mg 11/17/18 22:00 11/19/18 05:52 Apresoline IV Not Given Q4HR RADHA Sodium Chloride 100 mls @ 999 mls/hr 11/19/18 05:55 Nacl 0.9% IV LUIS PRN Hypotension Ibuprofen 600 mg 11/17/18 10:30 Motrin PO Q8H PRN Pain Insulin Glargine 8 units 11/17/18 22:00 11/18/18 21:32 Lantus SUB-Q Not Given QHS [facility] Insulin Human Lispro 4 unit 11/17/18 11:30 11/19/18 09:15 Humalog SUB-Q Not Given [facility] Metoclopramide HCl 10 mg 11/17/18 20:33 11/18/18 21:32 Reglan IV 10 mg Q6H PRN Administration Nausea And Vomiting Metoprolol Tartrate 50 mg 11/17/18 10:00 11/19/18 09:13 Lopressor PO 50 mg BID [facility] Administration Morphine Sulfate 5 mg 11/17/18 04:46 11/17/18 05:35 Morphine PO 5 mg Q4H PRN Administration Pain , Severe (7-10) Morphine Sulfate 2 mg 11/18/18 11:00 11/18/18 21:30 Morphine IV 2 mg Q8H PRN Administration Pain, Moderate (4-6) Ondansetron HCl 4 mg 11/16/18 20:35 11/18/18 10:22 Zofran IV 4 mg Q8H PRN Administration Nausea And Vomiting Sodium Chloride 10 ml 11/16/18 22:00 11/19/18 09:16 Sodium Chloride Flush Syringe 10 Ml IV 10 ml BID RADHA Administration Sodium Chloride 10 ml 11/16/18 20:35 Sodium Chloride Flush Syringe 10 Ml IV PRN PRN LINE FLUSH
[2018-11-19] MEDS ORDERED: PROCRIT IV STA (12:10)
[2018-11-19] MEDS: MORPHINE IV PRN ×2 (12:21→23:04)
[2018-11-19] MEDS ORDERED: ZOFRAN ONE (16:05)
[2018-11-19] MEDS: ZOFRAN IV PRN (16:50)
[2018-11-19] MEDS ORDERED: NACL 0.9 (PRIMING MACHINE ONLY DIALYSIS) MC ONE (19:24)
[2018-11-19] MEDS ORDERED: PROCRIT ONE (19:43)
[2018-11-19] MEDS: REGLAN IV PRN (23:03)
[2018-11-19] MEDS: LANTUS SUB-Q SCH (23:15)
[2018-11-20 04:07] LABS: Hematocrit 26.7 % (30.3-42.9); Mean Corpuscular HGB Conc 34 % (30-34); Mean Corpuscular Volume 84 fl (79-97); Platelet Count 171 K/mm3 (140-440); Red Blood Count 3.17 M/mm3 (3.65-5.03); Red Cell Distribution Width 15.4 % (13.2-15.2)
[2018-11-20 04:31] LABS: Calcium 7.8 mg/dL (8.4-10.2)
[2018-11-20 05:46] VITALS: BP 162/70
[2018-11-20] MEDS: APRESOLINE IV SCH ×4 (05:46→10:37)
[2018-11-20] MEDS: HumaLOG SUB-Q SCH ×3 (08:37→12:38)
--- NOTE | 2018-11-20 09:28 | XRay Report ---
ROUTINE CHEST, TWO VIEWS: HISTORY: Shortness of breath. Cardiomegaly, pulmonary venous congestion and medium right pleural effusion are identified which are grossly unchanged since 11/16/18. There is compressive atelectasis at the right lung base. The remainder of the lungs are grossly clear. No obvious pneumonia or pneumothorax. Dual-lumen right IJ venous catheter remains in good position. IMPRESSION: CHF/volume overload.
[2018-11-20] MEDS: ZOFRAN IV PRN (10:30)
[2018-11-20] MEDS: NORVASC PO SCH ×2 (10:31→10:39)
[2018-11-20] MEDS: HEPARIN SUB-Q SCH (10:31)
[2018-11-20] MEDS: PEPCID IV SCH (10:31)
[2018-11-20] MEDS: LOPRESSOR PO SCH ×2 (10:31→10:38)
[2018-11-20] MEDS: APRESOLINE PO SCH ×2 (10:33→10:38)
[2018-11-20] MEDS: CATAPRES PO SCH ×2 (10:33→10:39)
[2018-11-20] MEDS: SODIUM CHLORIDE FLUSH SYRINGE 10 ML IV SCH (10:37)
[2018-11-20] MEDS: MORPHINE IV PRN (10:37)
[2018-11-20] MEDS ORDERED: PEPCID PO SCH (11:00)
[2018-11-20] MEDS ORDERED: XYLOCAINE 1% 20 mL ONE (12:10)
--- NOTE | 2018-11-20 13:19 | Ultrasound Report ---
ULTRASOUND THORACENTESIS History: Right pleural effusion. Description of procedure: Informed consent was obtained. Sterile technique was utilized. 1% lidocaine for skin anesthesia. Using ultrasound guidance, a 5 [place] centesis needle was advanced into the right pleural space. There was spontaneous return of clear yellow fluid. 1700 cc of fluid was aspirated. 120 cc of fluid was sent to the lab for analysis. No complications. Impression: Successful ultrasound-guided right thoracentesis.
--- NOTE | 2018-11-20 14:50 | Procedure Note ---
Date of procedure: 11/20/18 Pre-op diagnosis: right pleural effusion Post-op diagnosis: same Procedure: US thoracentesis Findings: large right pleural effusion Anesthesia: local Surgeon: SAYDA STOCKTON Estimated blood loss: none Pathology: list (120cc) Specimen disposition: to lab Condition: stable Disposition: floor
[2018-11-20 16:48] LABS: Total Cells Counted 100 /mm3
--- NOTE | 2018-11-20 19:24 | XRay Report ---
PROCEDURE: XR CHEST 1V AP TECHNIQUE: Chest single AP HISTORY: right pleural effusion, recent thora COMPARISONS: Comparison is November 16, 2018 FINDINGS: Right central venous dialysis catheter again noted unchanged. There is decreased size of right pleural effusion. Some atelectasis or infiltrate remains within the right lower lobe along with minimal costophrenic angle blunting There is a new left pleural effusion moderate size. Cardiac and mediastinal contours are stable. Pulm onary vasculature is unremarkable. There is a small right apical pneumothorax estimated at approximately 10% IMPRESSION: Small right apical pneumothorax estimated at approximately 10% Decreased size of right pleural effusion with minimal effusion or thickening and adjacent infiltrate/ atelectasis remaining New moderate left pleural effusion Dialysis catheter in satisfactory position. This document is electronically signed by Angel Howell MD., November 20 2018 07:22:12 PM ET
[2018-11-24 07:12] LABS: pH, Body Fluid 7.8
== END 2018-11-20 16:01 | disposition home or self-care (01) | DRG 291 ==
LOC: ED 13:35 → 4A 18:42
PROVIDERS: ADMIT Internal Medicine; ATTEND Internal Medicine
PROC: 5A1D70Z Performance of Urinary Filtration, Intermittent, Less than 6 Hours Per Day (ICD-10-PCS; 2018-11-16)
PROC: 5A1D70Z Performance of Urinary Filtration, Intermittent, Less than 6 Hours Per Day (ICD-10-PCS; 2018-11-17)
PROC: 5A1D70Z Performance of Urinary Filtration, Intermittent, Less than 6 Hours Per Day (ICD-10-PCS; 2018-11-19)
PROC: 0W993ZZ Drainage of Right Pleural Cavity, Percutaneous Approach (ICD-10-PCS; principal; 2018-11-20)
DX: I13.2 Hypertensive heart and chronic kidney disease with heart failure and with stage 5 chronic kidney disease, or end stage renal disease (principal); I50.31 Acute diastolic (congestive) heart failure; N18.6 End stage renal disease; E87.5 Hyperkalemia; J45.909 Unspecified asthma, uncomplicated; E11.22 Type 2 diabetes mellitus with diabetic chronic kidney disease; E78.00 Pure hypercholesterolemia, unspecified; G89.29 Other chronic pain; E87.70 Fluid overload, unspecified; E11.42 Type 2 diabetes mellitus with diabetic polyneuropathy; D63.1 Anemia in chronic kidney disease; H54.7 Unspecified visual loss; J91.8 Pleural effusion in other conditions classified elsewhere; I25.10 Atherosclerotic heart disease of native coronary artery without angina pectoris; Z88.5 Allergy status to narcotic agent; Z88.0 Allergy status to penicillin; Z88.8 Allergy status to other drugs, medicaments and biological substances; Z88.6 Allergy status to analgesic agent; Z91.15 Patient's noncompliance with renal dialysis; Z99.2 Dependence on renal dialysis; Z88.1 Allergy status to other antibiotic agents; Z91.041 Radiographic dye allergy status; Z79.51 Long term (current) use of inhaled steroids; Z79.4 Long term (current) use of insulin; Z79.899 Other long term (current) drug therapy; Z86.73 Personal history of transient ischemic attack (TIA), and cerebral infarction without residual deficits; Z87.442 Personal history of urinary calculi; Z89.421 Acquired absence of other right toe(s)
CPT/HCPCS: 32555; 36415; 71045; 71046; 80048; 80053; 80061; 82947; 82962; 84160; 84484; 85025; 85027; 85379; 85610; 85730; 87116; 88112; 88305; 89051; 93005; 93010; 94640; 94644; 96374; 96375; 99285; G0378; A9270-GY; J0360; J0610; J0885; J1644; J1815; J1940; J2270; J2405; J2765; J7030; Q0169

== ENCOUNTER 2018-11-30 07:33 | Inpatient (IN) | payer MEDICARE ==
[2018-11-30] MEDS ORDERED: ZOFRAN IV ONE (08:02)
[2018-11-30] MEDS ORDERED: SUBLIMAZE IV ONE (08:02)
--- NOTE | 2018-11-30 08:10 | Emergency Department Report ---
HPI - General Chief Complaint: Abdominal Pain Time Seen by Provider: 11/30/18 07:55 - HPI HPI: Room 24 The patient is a 48-year-old female presenting with chief complaint of abdominal pain and diarrhea. The patient states her symptoms began 6 days ago at hemodialysis which she experienced some nausea and vomiting. The patient states she completed her dialysis but the following day developed diarrhea. The patient states she has nausea vomiting and diarrhea since. The patient states 2 days ago she developed epigastric abdominal pain radiating to the left and has been intermittent. The patient admits to subjective fever. The patient gives her pain a score of 10/10. The patient states she has not been on any antibiotics recently Location: Abdomen Duration: [See above] Quality: Pain Severity: 10/10 Modifying factors: [see above] Context: [see above] Mode of transportation: [not driving] ED Past Medical Hx - Past Medical History Hx Hypertension: Yes Hx CVA: Yes Hx Diabetes: Yes Hx Renal Disease: Yes Hx Kidney Stones: Yes Hx Asthma: Yes Additional medical history: psorasis. NEUROPATHY. FIBROIDS. DIALYSIS MWF - Surgical History Additional Surgical History: X 1 , Hx. left wrist surgery 2 toes amputated r) foot. partial right foot amputation - Family History Family history: no significant - Social History Smoking Status: Never Smoker Substance Use Type: None (denies illicit drug use) - Medications Home Medications: Home Medications Medication Instructions Recorded Confirmed Last Taken Type ALBUTEROL Inhaler (OR & NICU) 2 puff IH Q6H PRN 05/19/18 11/16/18 11/05/18 History [ProAir HFA Inhaler] Ibuprofen [Motrin 600 MG tab] 600 mg PO Q8H PRN 08/26/18 11/16/18 11/04/18 History ALBUTEROL NEB's [Proventil 0.083% 2.5 mg IH QID PRN #30 nebu 08/31/18 11/16/18 11/05/18 Rx NEBS] Fluticasone [Flonase] 1 spray NS QDAY PRN #30 bottle 08/31/18 11/16/18 11/05/18 Rx AtorvaSTATin [Lipitor] 20 mg PO DAILY #30 tablet 10/07/18 11/16/18 11/05/18 Rx Metoprolol [Lopressor TAB] 50 mg PO BID #60 tablet 10/07/18 11/16/18 11/05/18 Rx amLODIPine [Norvasc] 10 mg PO DAILY #30 tablet 10/07/18 11/16/18 11/05/18 Rx cloNIDine [Catapres] 0.2 mg PO TID #90 tablet 10/07/18 11/16/18 11/05/18 Rx hydrALAZINE [Apresoline TAB] 100 mg PO TID #90 tab 10/07/18 11/16/18 11/05/18 Rx Insulin Glargine [Lantus VIAL] 8 units SUB-Q QHS #1 vial 11/06/18 11/16/18 11/05/18 Rx Lispro Insulin [Humalog] 4 unit SUB-Q AC 30 Days units 11/06/18 11/16/18 11/05/18 Rx Refresh Optive Eye Drops 3 drops OD TID PRN 11/17/18 11/17/18 1 Day Ago History ~11/16/18 Dicyclomine [Bentyl] 10 mg PO QID PRN #30 capsule 11/20/18 Unknown Rx Ondansetron [Zofran Odt] 4 mg PO Q8HR #30 tab.rapdis 11/20/18 Unknown Rx ED Review of Systems ROS: Stated complaint: ABDOMINAL PAIN Other details as noted in HPI Constitutional: fever (subjective) Eyes: denies: eye pain ENT: denies: throat pain Respiratory: no symptoms reported Cardiovascular: denies: chest pain Endocrine: no symptoms reported Gastrointestinal: abdominal pain, nausea, vomiting, diarrhea Genitourinary: denies: abnormal menses Musculoskeletal: denies: back pain Neurological: denies: headache Physical Exam - Physical Exam Vital Signs: Vital Signs 11/30/18 07:36 Temperature 97.9 F Pulse Rate 96 H Respiratory 16 Rate Blood Pressure 208/110 O2 Sat by Pulse 96 Oximetry Physical Exam: GENERAL: The patient is well-developed well-nourished female lying on stretcher not appearing to be in acute distress. [] HEENT: Normocephalic. Atraumatic. Extraocular motions are intact. Patient has moist mucous membranes. NECK: Supple. Trachea midline CHEST/LUNGS: Clear to auscultation. There is no respiratory distress noted. HEART/CARDIOVASCULAR: Regular. There is no tachycardia. There is no gallop rub or murmur. ABDOMEN: Abdomen is soft, with tenderness to palpation in the midepigastric region. Patient has normal bowel sounds. There is no abdominal distention. SKIN: There is no rash. There is no edema. There is no diaphoresis. NEURO: The patient is awake, alert, and oriented. The patient is cooperative. The patient has normal speech MUSCULOSKELETAL: There is no evidence of acute injury. ED Course Vital Signs 11/30/18 07:36 Temperature 97.9 F Pulse Rate 96 H Respiratory 16 Rate Blood Pressure 208/110 O2 Sat by Pulse 96 Oximetry - Consultations Consultation #1: 11/30/18 09:[address] Albert. Will arrange dialysis ED Medical Decision Making - Lab Data Result diagrams: 11/30/18 08:06 11/30/18 08:06 - Radiology Data Radiology results: report reviewed (CT abdomen and pelvis), image reviewed (CT abdomen and pelvis) [place] [address] Cat Scan Report Signed Patient: ALEXANDRIA SALAS MR# : [id number] : 1970 Acct:[id number] Age/Sex: 48 / F ADM Date: 11/30/18 Loc: ED Attending Dr: Ordering Physician: FAUSTINO PAIZ MD Date of Service: 11/30/18 Procedure(s): CT abdomen pelvis wo con Accession Number(s): [id number] cc: FAUSTINO PAIZ MD CT ABDOMEN PELVIS WITHOUT CONTRAST: HISTORY: Epigastric and left-sided abdominal pain, diarrhea. COMPARISON: 10/07/18. TECHNIQUE: Helical CT in 1.25mm intervals without IV contrast. Sagittal and coronal reconstructions. FINDINGS: Lung bases: Borderline to mild cardiomegaly. Small to medium pericardial effusion is identified. A moderate layering right pleural effusion compresses the right lower lobe. Liver: Normal. Biliary system: Normal. Pancreas: Normal. Spleen: Normal. Kidneys/ureters/bladder: Normal. Adrenal glands: Normal. Aorta: Mild diffuse arterial calcifications are noted. No aneurysm. Intestines: No oral contrast was administered which limits evaluation of the bowel loops. There appear to be a few thickened loops of jejunum in the left abdomen. These loops demonstrate mild circumferential thickening and surrounding edema but no pneumatosis, obvious mass or obstruction. The remaining bowel loops are unremarkable. Appendix: Normal. Pelvic viscera: The uterus is markedly enlarged and heterogeneous suggesting fibroid disease. Ascites: Trace abdominal ascites is identified. There is nonspecific mesenteric edema in the left abdomen associated with the thickened bowel loops. Adenopathy: Multiple borderline retroperitoneal lymph nodes are identified which are unchanged. For instance, a left periaortic lymph node measures 1.9 x 1.4 cm. Musculoskeletal: Normal. IMPRESSION: Moderate circumferential thickening of a few loops of jejunum in the left abdomen are identified consistent with a nonspecific enteritis. Borderline heart size. Pericardial effusion. Right pleural effusion. Uterine fibroid disease. Trace ascites. Transcribed By: TTR Dictated By: SAYDA STOCKTON JR, MD Electronically Authenticated By: SAYDA STOCKTON JR, MD Signed Date/Time: 11/30/18855 DD/ 1 TD/TT: 11/30/18855 - Differential Diagnosis pancreatitis, partial small bowel obstruction, C. difficile colitis Critical care attestation.: If time is entered above; I have spent that time in minutes in the direct care of this critically ill patient, excluding procedure time. ED Disposition Clinical Impression: Enteritis, Acute abdominal pain, End-stage renal disease needing dialysis, Hyperkalemia Disposition: -09 OP ADMIT IP TO THIS HOSP Is pt being admited?: Yes Does the pt Need Aspirin: No Condition: Stable Instructions: Abdominal Pain (ED) Referrals: KD BARROW MD [Primary Care Provider] - 3-5 Days Time of Disposition: 09:26 (hospitalist paged)
[2018-11-30 08:28] LABS: Basophils # (Auto) 0.1 K/mm3 (0.0-0.1); Basophils % (Auto) 0.9 % (0.0-1.8); Eosinophils # (Auto) 0.3 K/mm3 (0.0-0.4); Eosinophils % (Auto) 2.8 % (0.0-4.3); Hematocrit 33.2 % (30.3-42.9); Lymphocytes # (Auto) 1.3 K/mm3 (1.2-5.4); Lymphocytes % (Auto) 12.6 % (13.4-35.0); Mean Corpuscular HGB Conc 33 % (30-34); Mean Corpuscular Volume 84 fl (79-97); Monocytes # (Auto) 0.9 K/mm3 (0.0-0.8); Monocytes % (Auto) 9.4 % (0.0-7.3); Platelet Count 159 K/mm3 (140-440); Red Blood Count 3.95 M/mm3 (3.65-5.03)
[2018-11-30 08:50] LABS: Albumin 2.9 g/dL (3.9-5); BUN/Creatinine Ratio 7; Blood Urea Nitrogen 80 mg/dL (7-17); Calcium 7.8 mg/dL (8.4-10.2); Hemolysis Index 4
[2018-11-30 08:53] LABS: Alanine Aminotransferase < 5 units/L (7-56)
--- NOTE | 2018-11-30 09:00 | Cat Scan Report ---
CT ABDOMEN PELVIS WITHOUT CONTRAST: HISTORY: Epigastric and left-sided abdominal pain, diarrhea. COMPARISON: 10/07/18. TECHNIQUE: Helical CT in 1.25mm intervals without IV contrast. Sagittal and coronal reconstructions. FINDINGS: Lung bases: Borderline to mild cardiomegaly. Small to medium pericardial effusion is identified. A moderate layering right pleural effusion compresses the right lower lobe. Liver: Normal. Biliary system: Normal. Pancreas: Normal. Spleen: Normal. Kidneys/ureters/bladder: Normal. Adrenal glands: Normal. Aorta: Mild diffuse arterial calcifications are noted. No aneurysm. Intestines: No oral contrast was administered which limits evaluation of the bowel loops. There appear to be a few thickened loops of jejunum in the left abdomen. These loops demonstrate mild circumferential thickening and surrounding edema but no pneumatosis, obvious mass or obstruction. The remaining bowel loops are unremarkable. Appendix: Normal. Pelvic viscera: The uterus is markedly enlarged and heterogeneous suggesting fibroid disease. Ascites: Trace abdominal ascites is identified. There is nonspecific mesenteric edema in the left abdomen associated with the thickened bowel loops. Adenopathy: Multiple borderline retroperitoneal lymph nodes are identified which are unchanged. For instance, a left periaortic lymph node measures 1.9 x 1.4 cm. Musculoskeletal: Normal. IMPRESSION: Moderate circumferential thickening of a few loops of jejunum in the left abdomen are identified consistent with a nonspecific enteritis. Borderline heart size. Pericardial effusion. Right pleural effusion. Uterine fibroid disease. Trace ascites.
[2018-11-30] MEDS ORDERED: REGLAN ONE (09:05)
[2018-11-30] MEDS ORDERED: REGLAN IV ONE (09:29)
--- NOTE | 2018-11-30 10:31 | Consultation ---
History of Present Illness - Reason for Consult Consult date: 11/30/18 end stage renal disease Requesting physician: FAUSTINO PAIZ - History of Present Illness The patient is a 48-year-old female presenting with chief complaint of abdominal pain and diarrhea. The patient states her symptoms began 6 days ago at hemodialysis which she experienced some nausea and vomiting. The patient states she completed her dialysis but the following day developed diarrhea. The pa tient states she has nausea vomiting and diarrhea since. The patient states 2 days ago she developed epigastric abdominal pain radiating to the left and has been intermittent. The patient admits to subjective fever. The patient gives her pain a score of 10/10. The patient states she has not been on any antibiotics recently. She undergoes dialysis at [facility] on [address] patient states that she had missed her last 2 dialysis sessions. Past History Past Medical History: diabetes, dialysis, hypertension Past Surgical History: Other (history of PermCath placement as well as right transmetatarsal amputation) Social history: other (denies smoking or drinking) Family history: no significant family history Medications and Allergies Allergies Allergy/AdvReac Type Severity Reaction Status Date / Time acetaminophen [From Lortab] Allergy Unknown Verified 11/03/18 16:59 amoxicillin Allergy Unknown Verified 07/03/18 20:57 hydrocodone [From Lortab] Allergy Unknown Verified 11/03/18 16:59 Penicillins Allergy Unknown Verified 05/19/18 13:02 tramadol Allergy Unknown Verified 07/03/18 20:57 IV contrast Allergy Rash Uncoded 01/15/17 17:55 Home Medications Medication Instructions Recorded Confirmed Last Taken Type ALBUTEROL Inhaler (OR & NICU) 2 puff IH Q6H PRN 05/19/18 11/16/18 11/05/18 History [ProAir HFA Inhaler] Ibuprofen [Motrin 600 MG tab] 600 mg PO Q8H PRN 08/26/18 11/16/18 11/04/18 History ALBUTEROL NEB's [Proventil 0.083% 2.5 mg IH QID PRN #30 nebu 08/31/18 11/16/18 11/05/18 Rx NEBS] Fluticasone [Flonase] 1 spray NS QDAY PRN #30 bottle 08/31/18 11/16/18 11/05/18 Rx AtorvaSTATin [Lipitor] 20 mg PO DAILY #30 tablet 10/07/18 11/16/18 11/05/18 Rx Metoprolol [Lopressor TAB] 50 mg PO BID #60 tablet 10/07/18 11/16/18 11/05/18 Rx amLODIPine [Norvasc] 10 mg PO DAILY #30 tablet 10/07/18 11/16/18 11/05/18 Rx cloNIDine [Catapres] 0.2 mg PO TID #90 tablet 10/07/18 11/16/18 11/05/18 Rx hydrALAZINE [Apresoline TAB] 100 mg PO TID #90 tab 10/07/18 11/16/18 11/05/18 Rx Insulin Glargine [Lantus VIAL] 8 units SUB-Q QHS #1 vial 11/06/18 11/16/18 11/05/18 Rx Lispro Insulin [Humalog] 4 unit SUB-Q AC 30 Days units 11/06/18 11/16/18 11/05/18 Rx Refresh Optive Eye Drops 3 drops OD TID PRN 11/17/18 11/17/18 1 Day Ago History ~11/16/18 Dicyclomine [Bentyl] 10 mg PO QID PRN #30 capsule 11/20/18 Unknown Rx Ondansetron [Zofran Odt] 4 mg PO Q8HR #30 tab.rapdis 11/20/18 Unknown Rx Review of Systems All systems: negative (negative except as noted above) Exam - Vital Signs Vital signs: Vital Signs Temp Pulse Resp BP Pulse Ox 97.9 F 96 H 16 208/110 96 11/30/18 07:36 11/30/18 07:36 11/30/18 07:36 11/30/18 07:36 11/30/18 07:36 - General Appearance General appearance: well-developed, well-nourished, appears stated age EENT: PERRL, mucous membranes moist Neck: Present: neck supple, trachea midline, Other (right IJ PermCath in place). Absent: JVD/HJR, Masses Respiratory: Decreased Breath Sounds (diminished at the bases) Heart: regular, normal heart rate Gastrointestinal: Present: normal, tenderness (mild diffuse tenderness) Integumentary: other (right transmetatarsal amputation) Results - Lab Results 11/30/18 08:06 11/30/18 08:06 Most recent lab results Calcium 7.8 mg/dL (8.4-10.2) L 11/30/18 08:06 Assessment and Plan Impression * End-stage renal disease on maintenance hemodialysis * Abdominal pain with diarrhea * Enteritis * Hypertension * Diabetes * Hyperkalemia * Noncompliance Recommendations * Schedule patient for hemodialysis today and keep her on MWF schedule for now * Her outpatient schedule is however TTS at [facility] clinic on [address] 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 Shall follow along with you
[2018-11-30] MEDS ORDERED: NACL 0.9% 100 ML IV PRN (11:00)
[2018-11-30] MEDS ORDERED: SODIUM CHLORIDE FLUSH SYRINGE 10 ML IV PRN (11:55)
--- NOTE | 2018-11-30 11:57 | History and Physical Report ---
History of Present Illness Date of examination: 11/30/18 Date of admission: 11/30/18 10:11 Chief complaint: Nausea, vomiting, diarrhea Missed dialysis 2 sessions, last dialysis 6 days ago History of present illness: Patient is 48 yo with diabetes, ESRD on dialysis. She missed 2 dialysis sessions. She missed Tue and Thur. Last dialysis 6 days ago. She presents with nausea, vomiting, diarrhea. Patient vomits 3-4 times a day for past few days. She denies fever. patient was evaluated in Emergency Dept. CT Abdomen shows enteritis. Patient will be admitted for further management. Past History Past Medical History: diabetes, dialysis, ESRD (On dialysis), hypertension Past Surgical History: Other (history of PermCath placement as well as right transmetatarsal amputation) Social history: other (denies smoking or drinking) Family history: diabetes Medications and Allergies Allergies Allergy/AdvReac Type Severity Reaction Status Date / Time acetaminophen [From Lortab] Allergy Unknown Verified 11/03/18 16:59 amoxicillin Allergy Unknown Verified 07/03/18 20:57 hydrocodone [From Lortab] Allergy Unknown Verified 11/03/18 16:59 Penicillins Allergy Unknown Verified 05/19/18 13:02 tramadol Allergy Unknown Verified 07/03/18 20:57 IV contrast Allergy Rash Uncoded 01/15/17 17:55 Home Medications Medication Instructions Recorded Confirmed Last Taken Type amLODIPine [Norvasc] 10 mg PO DAILY #30 tablet 10/07/18 11/30/18 11/05/18 Rx hydrALAZINE [Apresoline TAB] 100 mg PO TID #90 tab 10/07/18 11/30/18 11/05/18 Rx Dicyclomine [Bentyl] 10 mg PO QID PRN #30 capsule 11/20/18 11/30/18 Unknown Rx Ondansetron [Zofran Odt] 4 mg PO Q8HR #30 tab.rapdis 11/20/18 11/30/18 Unknown Rx Aspirin [Adult Aspirin] 81 mg PO DAILY 11/30/18 11/30/18 Unknown History AtorvaSTATin [Lipitor] 40 mg PO DAILY 11/30/18 11/30/18 Unknown History ISOSORBIDE MONOnitrate [Monoket] 20 mg PO DAILY 11/30/18 11/30/18 Unknown History Active Meds: Active Medications Amlodipine Besylate (Norvasc) 10 mg PO DAILY [facility] Aspirin (Halfprin Ec) 81 mg PO DAILY RADHA Atorvastatin Calcium (Lipitor) 40 mg PO DAILY RADHA Dicyclomine HCl (Bentyl) 10 mg PO QID PRN PRN Reason: Pain, Mild (1-3) Hydralazine HCl (Apresoline) 100 mg PO TID RADHA Hydralazine HCl (Apresoline) 10 mg IV Q4HR PRN PRN Reason: SBP>170 or DBP>110 Sodium Chloride (Nacl 0.9%) 100 mls @ 999 mls/hr IV LUIS PRN PRN Reason: Hypotension Isosorbide Mononitrate (Monoket) 20 mg PO DAILY [facility] Ondansetron HCl (Zofran Odt) 4 mg PO Q8HR [facility] Review of Systems All systems: negative Exam - Constitutional Vitals: Temp Pulse Resp BP Pulse Ox 97.9 F 96 H 16 196/102 96 11/30/18 07:36 11/30/18 11:32 11/30/18 11:32 11/30/18 11:32 11/30/18 11:32 General appearance: Present: no acute distress - EENT Eyes: Present: PERRL ENT: hearing intact, clear oral mucosa - Neck Neck: Present: supple - Respiratory Respiratory effort: normal Respiratory: bilateral: CTA, negative: diminished, rales, rhonchi, wheezing - Cardiovascular Rhythm: regular Heart Sounds: Present: S1 & S2 - Extremities Extremities: no ischemia, No edema - Abdominal General gastrointestinal: Present: soft, non-tender, non-distended, normal bowel sounds - Integumentary Integumentary: Present: clear, warm, dry - Musculoskeletal Musculoskeletal: strength equal bilaterally - Psychiatric Psychiatric: appropriate mood/affect, intact judgment & insight - Neurologic Neurologic: CNII-XII intact, moves all extremities, other (AAO x 3.) Results - Labs CBC & Chem 7: 12/02/18 07:51 12/02/18 07:51 Labs: Abnormal lab results 11/30/18 11/30/18 Range/Units 08:06 08:06 RDW 16.0 H (13.2-15.2) % Lymph % (Auto) 12.6 L (13.4-35.0) % [place] % (Auto) 9.4 H (0.0-7.3) % [place] # 0.9 H (0.0-0.8) K/mm3 Seg Neutrophils % 74.3 H (40.0-70.0) % Potassium 5.6 H (3.6-5.0) mmol/L Carbon Dioxide 20 L (22-30) mmol/L BUN 80 H (7-17) mg/dL Creatinine 10.9 H (0.7-1.2) mg/dL Calcium 7.8 L (8.4-10.2) mg/dL ALT < 5 L (7-56) units/L Total Protein 5.7 L (6.3-8.2) g/dL Albumin 2.9 L (3.9-5) g/dL Assessment and Plan Nausea, vomiting, diarrhea Eneritis on CT Blood cultures done Stool c.diff,culture Not started on antibiotics yet, since no fever May consider Antibiotics pending clinical course ESRD on dialysis TTS Nephrology consulted Missed dialysis, 2 sessions for 6 days Hyperkalemia For dialysis today DM type 2 Fingerstick qac and hs HTN Monitor. Full code status
[2018-11-30] MEDS ORDERED: NORVASC ONE (12:05)
[2018-11-30] MEDS ORDERED: BABY ASPIRIN ONE ×2 (12:05→12:10)
[2018-11-30] MEDS: HALFPRIN EC PO SCH (12:10)
[2018-11-30] MEDS: BENTYL PO PRN (12:14)
[2018-11-30] MEDS: NORVASC PO SCH (12:14)
[2018-11-30] MEDS ORDERED: BENTYL ONE (12:14)
[2018-11-30] MEDS ORDERED: APRESOLINE ONE (12:20)
[2018-11-30] MEDS ORDERED: MORPHINE ONE (12:20)
[2018-11-30] MEDS: MORPHINE IV PRN ×2 (12:22→23:37)
[2018-11-30] MEDS: APRESOLINE IV PRN (12:23)
[2018-11-30] MEDS: MONOKET PO SCH (12:25)
[2018-11-30] MEDS: ZOFRAN IV PRN (15:31)
[2018-11-30] MEDS: ZOFRAN ODT PO SCH ×2 (15:37→23:36)
[2018-11-30] MEDS: APRESOLINE PO SCH ×2 (15:38→23:36)
[2018-11-30] MEDS ORDERED: NACL 0.9 (PRIMING MACHINE ONLY DIALYSIS) MC ONE (19:46)
[2018-11-30] MEDS: SODIUM CHLORIDE FLUSH SYRINGE 10 ML IV SCH (23:41)
[2018-12-01] MEDS: ZOFRAN IV PRN ×2 (04:31→11:37)
[2018-12-01] MEDS: ZOFRAN ODT PO SCH ×3 (05:55→21:37)
[2018-12-01] MEDS: APRESOLINE PO SCH ×3 (08:42→20:40)
--- NOTE | 2018-12-01 09:01 | Progress Note ---
Assessment and Plan Impression * End-stage renal disease on maintenance hemodialysis * Abdominal pain with diarrhea * Enteritis * Hypertension * Diabetes * Hyperkalemia * Noncompliance Recommendations * Uneventful hemodialysis yesterday * Continue dialysis on MWF schedule for now * Her outpatient schedule is however TTS at [facility] clinic on [address] 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 Uneventful dialysis yesterday. She still does have some abdominal discomfort. Still has some diarrhea as well Objective - Vital Signs Vital signs: Vital Signs - 12hr 11/30/18 11/30/18 11/30/18 21:15 21:30 22:57 Temperature 98.2 F 98.0 F Pulse Rate 91 H 93 H 101 H Pulse Rate [ Left Radial] Respiratory 18 18 Rate Blood Pressure 149/68 173/76 148/69 O2 Sat by Pulse 95 Oximetry 12/01/18 12/01/18 12/01/18 04:33 05:52 08:44 Temperature 97.9 F 98.5 F Pulse Rate 101 H Pulse Rate [ 99 H Left Radial] Respiratory 18 20 Rate Blood Pressure 163/74 O2 Sat by Pulse 91 Oximetry - General Appearance General appearance: well-developed, well-nourished, appears stated age EENT: PERRL, mucous membranes moist Neck: no JVD, no thyromegaly, no carotid bruit, supple, other (right IJ PermCath in place) Respiratory: Present: Clear to Ascultation Cardiology: regular, normal heart rate, S1S2, no murmurs Gastrointestinal: normal, normoactive bowel sounds Integumentary: other (right transmetatarsal amputation) - Lab 12/01/18 10:00 12/01/18 10:00 Most recent lab results Calcium 7.8 mg/dL (8.4-10.2) L 11/30/18 08:06 Medications & Allergies - Medications Allergies/Adverse Reactions: Allergies acetaminophen [From Lortab] Allergy (Verified 11/03/18 16:59) Unknown amoxicillin Allergy (Verified 07/03/18 20:57) Unknown hydrocodone [From Lortab] Allergy (Verified 11/03/18 16:59) Unknown Penicillins Allergy (Verified 05/19/18 13:02) Unknown tramadol Allergy (Verified 07/03/18 20:57) Unknown IV contrast Allergy (Uncoded 01/15/17 17:55) Rash Home Medications: Home Medications Medication Instructions Recorded Confirmed Last Taken Type amLODIPine [Norvasc] 10 mg PO DAILY #30 tablet 10/07/18 11/30/18 11/05/18 Rx hydrALAZINE [Apresoline TAB] 100 mg PO TID #90 tab 10/07/18 11/30/18 11/05/18 Rx Dicyclomine [Bentyl] 10 mg PO QID PRN #30 capsule 11/20/18 11/30/18 Unknown Rx Ondansetron [Zofran Odt] 4 mg PO Q8HR #30 tab.rapdis 11/20/18 11/30/18 Unknown Rx Aspirin [Adult Aspirin] 81 mg PO DAILY 11/30/18 11/30/18 Unknown History AtorvaSTATin [Lipitor] 40 mg PO DAILY 11/30/18 11/30/18 Unknown History ISOSORBIDE MONOnitrate [Monoket] 20 mg PO DAILY 11/30/18 11/30/18 Unknown History Active Medications: Generic Name Dose Route Start Last Admin Trade Name Freq PRN Reason Stop Dose Admin Amlodipine Besylate 10 mg 11/30/18 12:00 11/30/18 12:14 Norvasc PO 10 mg DAILY RADHA Administration Aspirin 81 mg 11/30/18 12:00 11/30/18 12:10 Halfprin Ec PO Not Given DAILY RADHA Atorvastatin Calcium 40 mg 11/30/18 12:00 11/30/18 12:14 Lipitor PO 40 mg DAILY RADHA Administration Dicyclomine HCl 10 mg 11/30/18 11:50 11/30/18 12:14 Bentyl PO 10 mg QID PRN Administration Pain, Mild (1-3) Heparin Sodium (Porcine) 5,000 unit 12/01/18 10:00 Heparin SUB-Q Q12HR RADHA Hydralazine HCl 100 mg 11/30/18 14:00 12/01/18 08:42 Apresoline PO 100 mg TID RADHA Administration Hydralazine HCl 10 mg 11/30/18 11:50 11/30/18 12:23 Apresoline IV 10 mg Q4HR PRN Administration SBP>170 or DBP>110 Sodium Chloride 100 mls @ 999 mls/hr 11/30/18 11:00 Nacl 0.9% IV LUIS PRN Hypotension Isosorbide Mononitrate 20 mg 11/30/18 12:00 11/30/18 12:25 Monoket PO 20 mg DAILY RADHA Administration Morphine Sulfate 2 mg 11/30/18 11:55 11/30/18 23:37 Morphine IV 2 mg Q4H PRN Administration Pain, Moderate (4-6) Ondansetron HCl 4 mg 11/30/18 14:00 12/01/18 05:55 Zofran Odt PO Not Given Q8HR RADHA Ondansetron HCl 4 mg 11/30/18 11:55 12/01/18 04:31 Zofran IV 4 mg Q8H PRN Administration Nausea And Vomiting Sodium Chloride 10 ml 11/30/18 22:00 11/30/18 23:41 Sodium Chloride Flush Syringe 10 Ml IV 10 ml BID RADHA Administration Sodium Chloride 10 ml 11/30/18 11:55 Sodium Chloride Flush Syringe 10 Ml IV PRN PRN LINE FLUSH
[2018-12-01] MEDS: LEVAQUIN 500MG/100ML 500 MG/100 ML BAG IV SCH (09:41)
[2018-12-01] MEDS: APRESOLINE IV PRN ×2 (09:42→09:50)
[2018-12-01] MEDS: MORPHINE IV PRN (09:42)
[2018-12-01] MEDS: HEPARIN SUB-Q SCH ×2 (09:43→22:29)
[2018-12-01] MEDS: SODIUM CHLORIDE FLUSH SYRINGE 10 ML IV SCH ×2 (09:44→21:38)
[2018-12-01] MEDS: HALFPRIN EC PO SCH (09:50)
[2018-12-01] MEDS: MONOKET PO SCH (09:51)
[2018-12-01] MEDS: NORVASC PO SCH (09:51)
[2018-12-01 10:19] LABS: Basophils # (Auto) 0.1 K/mm3 (0.0-0.1); Basophils % (Auto) 0.6 % (0.0-1.8); Eosinophils # (Auto) 0.5 K/mm3 (0.0-0.4); Eosinophils % (Auto) 4.3 % (0.0-4.3); Hematocrit 31.4 % (30.3-42.9); Hemoglobin 10.6 gm/dl (10.1-14.3); Lymphocytes # (Auto) 0.9 K/mm3 (1.2-5.4); Lymphocytes % (Auto) 8.4 % (13.4-35.0); Mean Corpuscular HGB Conc 34 % (30-34); Mean Corpuscular Volume 83 fl (79-97); Monocytes % (Auto) 9.1 % (0.0-7.3); Platelet Count 170 K/mm3 (140-440); Red Blood Count 3.78 M/mm3 (3.65-5.03); Red Cell Distribution Width 15.8 % (13.2-15.2)
[2018-12-01 10:42] LABS: Calcium 7.5 mg/dL (8.4-10.2)
--- NOTE | 2018-12-01 11:50 | Progress Note ---
Assessment and Plan Assessment and plan: Acute enteritis. Follow-up stool and blood cultures. Start antibiotics of Levaquin and Flagyl daily. F/U CBC ESRD on dialysis TTS Nephrology following Missed dialysis, 2 sessions for 6 days Schedule patient for hemodialysis today and keep her on MWF schedule for now Avoid nephrotoxins Patient also needs a permanent dialysis access Hyperkalemia For dialysis today DM type 2 Fingerstick qac and hs HTN History Interval history: Patient still reports diffuse epigastric pain. No other issues overnight. Patient denies nausea or vomiting. Patient states that she tolerated a chicken sandwich last night Hospitalist Physical - Constitutional Vitals: Temp Pulse Resp BP Pulse Ox 97.8 F 95 H 20 162/77 94 12/01/18 11:16 12/01/18 11:16 12/01/18 11:16 12/01/18 11:16 12/01/18 11:16 General appearance: Present: no acute distress - EENT Eyes: Present: PERRL, EOM intact ENT: hearing intact, clear oral mucosa, dentition normal - Neck Neck: Present: supple, normal ROM - Respiratory Respiratory effort: normal Respiratory: bilateral: CTA - Cardiovascular Rhythm: regular Heart Sounds: Present: S1 & S2. Absent: gallop, rub - Extremities Extremities: no ischemia, No edema, Full ROM - Abdominal General gastrointestinal: soft, tender, non-distended, normal bowel sounds Localized gastrointestinal: tender: diffuse, epigastric periumbilical - Integumentary Integumentary: Present: clear, warm, dry - Neurologic Neurologic: CNII-XII intact, moves all extremities Results - Labs CBC & Chem 7: 12/01/18 10:00 12/01/18 10:00 Labs: Laboratory Last Values WBC 10.5 K/mm3 (4.5-11.0) 12/01/18 10:00 RBC 3.78 M/mm3 (3.65-5.03) 12/01/18 10:00 Hgb 10.6 gm/dl (10.1-14.3) 12/01/18 10:00 Hct 31.4 % (30.3-42.9) 12/01/18 10:00 MCV 83 fl (79-97) 12/01/18 10:00 MCH 28 pg (28-32) 12/01/18 10:00 MCHC 34 % (30-34) 12/01/18 10:00 RDW 15.8 % (13.2-15.2) H 12/01/18 10:00 Plt Count 170 K/mm3 (140-440) 12/01/18 10:00 Lymph % (Auto) 8.4 % (13.4-35.0) L 12/01/18 10:00 [place] % (Auto) 9.1 % (0.0-7.3) H 12/01/18 10:00 Eos % (Auto) 4.3 % (0.0-4.3) 12/01/18 10:00 Baso % (Auto) 0.6 % (0.0-1.8) 12/01/18 10:00 Lymph # 0.9 K/mm3 (1.2-5.4) L 12/01/18 10:00 [place] # 1.0 K/mm3 (0.0-0.8) H 12/01/18 10:00 Eos # 0.5 K/mm3 (0.0-0.4) H 12/01/18 10:00 Baso # 0.1 K/mm3 (0.0-0.1) 12/01/18 10:00 Seg Neutrophils % 77.6 % (40.0-70.0) H 12/01/18 10:00 Seg Neutrophils # 8.1 K/mm3 (1.8-7.7) H 12/01/18 10:00 Sodium 141 mmol/L (137-145) 12/01/18 10:00 Potassium 4.4 mmol/L (3.6-5.0) D 12/01/18 10:00 Chloride 99.1 mmol/L (98-107) 12/01/18 10:00 Carbon Dioxide 26 mmol/L (22-30) 12/01/18 10:00 Anion Gap 20 mmol/L 12/01/18 10:00 BUN 36 mg/dL (7-17) H 12/01/18 10:00 Creatinine 6.6 mg/dL (0.7-1.2) H 12/01/18 10:00 Estimated GFR 7 ml/min 12/01/18 10:00 BUN/Creatinine Ratio 5 % 12/01/18 10:00 Glucose 118 mg/dL (65-100) H 12/01/18 10:00 POC Glucose 97 (70-105) 12/01/18 07:40 Calcium 7.5 mg/dL (8.4-10.2) L 12/01/18 10:00 Total Bilirubin 0.40 mg/dL (0.1-1.2) 11/30/18 08:06 AST 14 units/L (5-40) 11/30/18 08:06 ALT < 5 units/L (7-56) L 11/30/18 08:06 Alkaline Phosphatase 74 units/L (35-129) 11/30/18 08:06 Total Protein 5.7 g/dL (6.3-8.2) L 11/30/18 08:06 Albumin 2.9 g/dL (3.9-5) L 11/30/18 08:06 Albumin/Globulin Ratio 1.0 % 11/30/18 08:06 Lipase 30 units/L (13-60) 11/30/18 08:06 Active Medications - Current Medications Current Medications: Generic Name Dose Route Start Last Admin [facility] Reason Stop Dose Admin Amlodipine Besylate 10 mg 11/30/18 12:00 12/01/18 09:51 Norvasc PO Not Given DAILY [facility] Aspirin 81 mg 11/30/18 12:00 12/01/18 09:50 Halfprin Ec PO Not Given DAILY [facility] Atorvastatin Calcium 40 mg 11/30/18 12:00 12/01/18 09:51 Lipitor PO Not Given DAILY [facility] Dicyclomine HCl 10 mg 11/30/18 11:50 11/30/18 12:14 Bentyl PO 10 mg QID PRN Administration Pain, Mild (1-3) Heparin Sodium (Porcine) 5,000 unit 12/01/18 10:00 12/01/18 09:43 Heparin SUB-Q Not Given Q12HR RADHA Hydralazine HCl 100 mg 11/30/18 14:00 12/01/18 08:42 Apresoline PO 100 mg TID RADHA Administration Hydralazine HCl 10 mg 11/30/18 11:50 12/01/18 09:50 Apresoline IV 10 mg Q4HR PRN Administration SBP>170 or DBP>110 Sodium Chloride 100 mls @ 999 mls/hr 11/30/18 11:00 Nacl 0.9% IV LUIS PRN Hypotension Levofloxacin/Dextrose 500 mg in 100 mls @ 100 mls/hr 12/01/18 10:00 12/01/18 09:41 Levaquin 500mg/100ml IV 100 mls/hr Q48HR RADHA Administration Protocol Metronidazole 500 mg in 100 mls @ 100 mls/hr 12/01/18 14:00 Flagyl 500 Mg/100 Ml IV Q8HR [facility] Protocol Isosorbide Mononitrate 20 mg 11/30/18 12:00 12/01/18 09:51 Monoket PO Not Given DAILY [facility] Morphine Sulfate 2 mg 11/30/18 11:55 12/01/18 09:42 Morphine IV 2 mg Q4H PRN Administration Pain, Moderate (4-6) Ondansetron HCl 4 mg 11/30/18 14:00 12/01/18 05:55 Zofran Odt PO Not Given Q8HR [facility] Ondansetron HCl 4 mg 11/30/18 11:55 12/01/18 11:37 Zofran IV 4 mg Q8H PRN Administration Nausea And Vomiting Sodium Chloride 10 ml 11/30/18 22:00 12/01/18 09:44 Sodium Chloride Flush Syringe 10 Ml IV 10 ml BID RADHA Administration Sodium Chloride 10 ml 11/30/18 11:55 Sodium Chloride Flush Syringe 10 Ml IV PRN PRN LINE FLUSH
[2018-12-01] MEDS ORDERED: REGLAN IV PRN (13:22)
[2018-12-01] MEDS: FLAGYL 500 MG/100 ML 500 MG/100 ML BAG IV SCH ×2 (14:57→21:38)
[2018-12-01] MEDS ORDERED: GOLYTELY PO ONE (17:00)
--- NOTE | 2018-12-01 22:34 | Consultation ---
HISTORY OF PRESENT ILLNESS: A 48-year-old female with an underlying history of diabetes mellitus, hypertension, history of CVA, who has also said to have had CVA for which she probably has impaired vision, but minimal residual weakness. She has end-stage renal disease and has been on dialysis since April of last year. Lately, she has been complaining of abdominal pain, initially had diarrhea and also had been having some associated nausea and vomiting for which she is being assessed for possible endoscopic evaluation. The endoscopic evaluation has been discussed with her and she is willing to go through with it. ALLERGIES: SHE HAS A HISTORY OF ALLERGY TO MULTIPLE MEDICATIONS INCLUDING TYLENOL, AMOXICILLIN, HYDROCODONE, PENICILLIN, TRAMADOL AND IV CONTRAST. SOCIAL HISTORY: Denies history of smoking, rarely drinks alcohol. Vitals otherwise are stable. PHYSICAL EXAMINATION: HEENT: Shows no JVD. LUNGS: Shows reduced breath sounds. CARDIOVASCULAR: Grossly normal. ABDOMEN: Shows some mid abdominal tenderness. EXTREMITIES: No pedal edema. NEUROLOGIC: She is alert and oriented, but she has impaired vision. IMPRESSION: Abdominal pain, nausea, and vomiting without any bleeding, diarrhea, which appears to be improving; end-stage renal disease; diabetes; and hypertension. PLAN: To do an EGD and a colonoscopy for further assessment. Empirically treat the patient with Zofran and PPI, and continue with present treatment at the moment. The patient's charge nurse, Margarita Dudley, was in the room throughout the entirety of the encounter with the patient. JOB# [id number] KATY/OBIE
[2018-12-02] MEDS: ZOFRAN IV PRN ×2 (02:39→10:48)
[2018-12-02] MEDS: MORPHINE IV PRN ×3 (02:39→23:31)
[2018-12-02] MEDS: APRESOLINE IV PRN ×3 (05:16→23:31)
[2018-12-02] MEDS: ZOFRAN ODT PO SCH ×3 (07:12→22:16)
[2018-12-02] MEDS: FLAGYL 500 MG/100 ML 500 MG/100 ML BAG IV SCH ×3 (07:13→22:15)
--- NOTE | 2018-12-02 07:30 | Anesthesia Consultation ---
Anesthesia Consult and Med Hx Date of service: 12/02/18 - Airway Anesthetic Teeth Evaluation: Poor ROM Head & Neck: Adequate Mental/Hyoid Distance: Adequate Mallampati Class: Class III Intubation Access Assessment: Probably Good - Pulmonary Exam CTA: Yes - Cardiac Exam Cardiac Exam: RRR - Pre-Operative Health Status ASA Pre-Surgery Classification: ASA4 Proposed Anesthetic Plan: MAC - Pulmonary Hx Smoking: No Hx Asthma: Yes COPD: No Hx Pneumonia: No Hx Sleep Apnea: No - Cardiovascular System Hx Hypertension: Yes Hx Coronary Artery Disease: No Hx Heart Attack/AMI: No Hx Angina: No Hx Percutaneous Transluminal Coronary Angioplasty (PTCA): No Hx Pacemaker: No Hx Internal Defibrillator: No Hx Valvular Heart Disease: No Hx Heart Murmur: No Hx Peripheral Vascular Disease: No - Central Nervous System CVA: Yes Hx Psychiatric Problems: Yes - Gastrointestinal Hx Gastroesophageal Reflux Disease: Yes - Endocrine Hx Renal Disease: Yes Hx End Stage Renal Disease: Yes (HD) Hx Liver Disease: No Hx Hypothyroidism: No Hx Hyperthyroidism: No - Other Systems Hx Alcohol Use: No Hx Substance Use: No Hx Cancer: No
--- NOTE | 2018-12-02 07:30 | Anesthesia Day of Surgery ---
Anesthesia Day of Surgery - Day of Surgery Patient Examined: Yes Patient H&P Reviewed: Yes Patient is NPO: Yes
[2018-12-02 08:33] LABS: Calcium 7.8 mg/dL (8.4-10.2)
[2018-12-02 08:45] LABS: Basophils # (Auto) 0.1 K/mm3 (0.0-0.1); Basophils % (Auto) 0.8 % (0.0-1.8); Eosinophils # (Auto) 0.5 K/mm3 (0.0-0.4); Eosinophils % (Auto) 4.5 % (0.0-4.3); Hemoglobin 9.9 gm/dl (10.1-14.3); Lymphocytes # (Auto) 1.2 K/mm3 (1.2-5.4); Lymphocytes % (Auto) 11.6 % (13.4-35.0); Mean Corpuscular HGB Conc 33 % (30-34); Mean Corpuscular Volume 84 fl (79-97); Monocytes # (Auto) 0.7 K/mm3 (0.0-0.8); Monocytes % (Auto) 6.6 % (0.0-7.3); Platelet Count 162 K/mm3 (140-440); Red Blood Count 3.58 M/mm3 (3.65-5.03); Red Cell Distribution Width 16.1 % (13.2-15.2)
[2018-12-02] MEDS ORDERED: D50W (25GM) Syringe IV ONE (08:46)
[2018-12-02] MEDS: APRESOLINE PO SCH ×3 (09:01→22:18)
--- NOTE | 2018-12-02 09:30 | Progress Note ---
Assessment and Plan Impression * End-stage renal disease on maintenance hemodialysis * Abdominal pain with diarrhea * Enteritis * Hypertension * Diabetes * Hyperkalemia * Noncompliance Recommendations * Patient is undergoing hemodialysis. Tolerating well. * Continue dialysis on MWF schedule for now * Her outpatient schedule is however TTS at [facility] clinic on [address] . Her claims consultant does not come to this hospital * Procrit per protocol * Avoid nephrotoxins * Hold phosphate binders for now due to her GI symptoms * Further plan as per primary team and GI services. Patient being prepped for colonoscopy * Patient also needs a permanent dialysis access Subjective Date of service: 12/02/18 Interval history: Patient is undergoing hemodialysis. Still complains of abdominal pain . Still has some diarrhea as well Objective - Vital Signs Vital signs: Vital Signs - 12hr 12/01/18 12/02/18 12/02/18 23:45 05:01 05:16 Temperature 98.4 F 98.5 F Pulse Rate 98 H 97 H Respiratory 20 20 Rate Blood Pressure 181/83 184/90 184/90 O2 Sat by Pulse 95 95 Oximetry 12/02/18 12/02/18 12/02/18 08:35 08:45 09:00 Temperature Pulse Rate 96 H 111 H 97 H Respiratory Rate Blood Pressure 172/83 186/92 182/81 O2 Sat by Pulse Oximetry - General Appearance General appearance: well-developed, well-nourished, appears stated age EENT: PERRL, mucous membranes moist Neck: no JVD, no thyromegaly, no carotid bruit, supple, other (right IJ PermCath in place) Respiratory: Present: Clear to Ascultation Cardiology: regular, normal heart rate, S1S2, no murmurs Gastrointestinal: normoactive bowel sounds, tenderness (mild diffuse tenderness.) Integumentary: other (no edema. Right TMA) - Lab 12/02/18 07:51 12/02/18 07:51 Most recent lab results Calcium 7.8 mg/dL (8.4-10.2) L 12/02/18 07:51 Medications & Allergies - Medications Allergies/Adverse Reactions: Allergies acetaminophen [From Lortab] Allergy (Verified 11/03/18 16:59) Unknown amoxicillin Allergy (Verified 07/03/18 20:57) Unknown hydrocodone [From Lortab] Allergy (Verified 11/03/18 16:59) Unknown Penicillins Allergy (Verified 05/19/18 13:02) Unknown tramadol Allergy (Verified 07/03/18 20:57) Unknown IV contrast Allergy (Uncoded 01/15/17 17:55) Rash Home Medications: Home Medications Medication Instructions Recorded Confirmed Last Taken Type amLODIPine [Norvasc] 10 mg PO DAILY #30 tablet 10/07/18 11/30/18 11/05/18 Rx hydrALAZINE [Apresoline TAB] 100 mg PO TID #90 tab 10/07/18 11/30/18 11/05/18 Rx Dicyclomine [Bentyl] 10 mg PO QID PRN #30 capsule 11/20/18 11/30/18 Unknown Rx Ondansetron [Zofran Odt] 4 mg PO Q8HR #30 tab.rapdis 11/20/18 11/30/18 Unknown R x Aspirin [Adult Aspirin] 81 mg PO DAILY 11/30/18 11/30/18 Unknown History AtorvaSTATin [Lipitor] 40 mg PO DAILY 11/30/18 11/30/18 Unknown History ISOSORBIDE MONOnitrate [Monoket] 20 mg PO DAILY 11/30/18 11/30/18 Unknown History Active Medications: Generic Name Dose Route Start Last Admin Trade Name Freq PRN Reason Stop Dose Admin Amlodipine Besylate 10 mg 11/30/18 12:00 12/01/18 09:51 Norvasc PO Not Given DAILY [facility] Aspirin 81 mg 11/30/18 12:00 12/01/18 09:50 Halfprin Ec PO Not Given DAILY [facility] Atorvastatin Calcium 40 mg 11/30/18 12:00 12/01/18 09:51 Lipitor PO Not Given DAILY [facility] Dicyclomine HCl 10 mg 11/30/18 11:50 11/30/18 12:14 Bentyl PO 10 mg QID PRN Administration Pain, Mild (1-3) Heparin Sodium (Porcine) 5,000 unit 12/01/18 10:00 12/01/18 22:29 Heparin SUB-Q Not Given Q12HR RADHA Hydralazine HCl 100 mg 11/30/18 14:00 12/02/18 09:01 Apresoline PO Not Given TID RADHA Hydralazine HCl 10 mg 11/30/18 11:50 12/02/18 05:16 Apresoline IV 10 mg Q4HR PRN Administration SBP>170 or DBP>110 Sodium Chloride 100 mls @ 999 mls/hr 11/30/18 11:00 Nacl 0.9% IV LUIS PRN Hypotension Levofloxacin/Dextrose 500 mg in 100 mls @ 100 mls/hr 12/01/18 10:00 12/01/18 09:41 Levaquin 500mg/100ml IV 100 mls/hr Q48HR RADHA Administration Protocol Metronidazole 500 mg in 100 mls @ 100 mls/hr 12/01/18 14:00 12/02/18 07:13 Flagyl 500 Mg/100 Ml IV 100 mls/hr Q8HR RADHA Administration Protocol Isosorbide Mononitrate 20 mg 11/30/18 12:00 12/01/18 09:51 Monoket PO Not Given DAILY RADHA Metoclopramide HCl 5 mg 12/01/18 13:22 Reglan IV Q6H PRN Nausea And Vomiting Morphine Sulfate 2 mg 11/30/18 11:55 12/02/18 02:39 Morphine IV 2 mg Q4H PRN Administration Pain, Moderate (4-6) Ondansetron HCl 4 mg 11/30/18 14:00 12/02/18 07:12 Zofran Odt PO Not Given Q8HR [facility] Ondansetron HCl 4 mg 11/30/18 11:55 12/02/18 02:39 Zofran IV 4 mg Q8H PRN Administration Nausea And Vomiting Sodium Chloride 10 ml 11/30/18 22:00 12/01/18 21:38 Sodium Chloride Flush Syringe 10 Ml IV 10 ml BID RADHA Administration Sodium Chloride 10 ml 11/30/18 11:55 Sodium Chloride Flush Syringe 10 Ml IV PRN PRN LINE FLUSH
--- NOTE | 2018-12-02 11:52 | Progress Note ---
Assessment and Plan Assessment and plan: Acute enteritis. Follow-up stool and blood cultures. Continue antibiotics of Flagyl daily. GI to perform EGD today ESRD on dialysis TTS Nephrology following Missed dialysis, 2 sessions for 6 days Schedule patient for hemodialysis today and keep her on MWF schedule for now Avoid nephrotoxins Patient also needs a permanent dialysis access Hyperkalemia For dialysis today DM type 2, Episode of hypoglycemia this morning related to no by mouth intake. Continue D50 and D5 IV fluids as needed Fingerstick qac and hs HTN History Interval history: Patient still reports diffuse epigastric pain. No other issues overnight. Patient with episode of hypoglycemia this morning with a blood glucose of 59. Patient currently undergoing hemodialysis Hospitalist Physical - Constitutional Vitals: Temp Pulse Resp BP Pulse Ox 98.5 F 93 H 20 179/84 98 12/02/18 08:35 12/02/18 10:15 12/02/18 08:35 12/02/18 10:15 12/02/18 08:35 General appearance: Present: no acute distress - EENT Eyes: Present: PERRL, EOM intact ENT: hearing intact, clear oral mucosa, dentition normal - Neck Neck: Present: supple, normal ROM - Respiratory Respiratory effort: normal Respiratory: bilateral: CTA - Cardiovascular Rhythm: regular Heart Sounds: Present: S1 & S2. Absent: gallop, rub - Extremities Extremities: no ischemia, No edema, Full ROM - Abdominal General gastrointestinal: soft, non-tender, non-distended, normal bowel sounds - Integumentary Integumentary: Present: clear, warm, dry - Neurologic Neurologic: CNII-XII intact, moves all extremities Results - Labs CBC & Chem 7: 12/02/18 07:51 12/02/18 07:51 Labs: Laboratory Last Values WBC 10.0 K/mm3 (4.5-11.0) 12/02/18 07:51 RBC 3.58 M/mm3 (3.65-5.03) L 12/02/18 07:51 Hgb 9.9 gm/dl (10.1-14.3) L 12/02/18 07:51 Hct 30.0 % (30.3-42.9) L 12/02/18 07:51 MCV 84 fl (79-97) 12/02/18 07:51 MCH 28 pg (28-32) 12/02/18 07:51 MCHC 33 % (30-34) 12/02/18 07:51 RDW 16.1 % (13.2-15.2) H 12/02/18 07:51 Plt Count 162 K/mm3 (140-440) 12/02/18 07:51 Lymph % (Auto) 11.6 % (13.4-35.0) L 12/02/18 07:51 Warrick % (Auto) 6.6 % (0.0-7.3) 12/02/18 07:51 Eos % (Auto) 4.5 % (0.0-4.3) H 12/02/18 07:51 Baso % (Auto) 0.8 % (0.0-1.8) 12/02/18 07:51 Lymph # 1.2 K/mm3 (1.2-5.4) 12/02/18 07:51 Warrick # 0.7 K/mm3 (0.0-0.8) 12/02/18 07:51 Eos # 0.5 K/mm3 (0.0-0.4) H 12/02/18 07:51 Baso # 0.1 K/mm3 (0.0-0.1) 12/02/18 07:51 Seg Neutrophils % 76.5 % (40.0-70.0) H 12/02/18 07:51 Seg Neutrophils # 7.7 K/mm3 (1.8-7.7) 12/02/18 07:51 Sodium 139 mmol/L (137-145) 12/02/18 07:51 Potassium 4.7 mmol/L (3.6-5.0) 12/02/18 07:51 Chloride 97.9 mmol/L (98-107) L 12/02/18 07:51 Carbon Dioxide 24 mmol/L (22-30) 12/02/18 07:51 Anion Gap 22 mmol/L 12/02/18 07:51 BUN 41 mg/dL (7-17) H 12/02/18 07:51 Creatinine 8.2 mg/dL (0.7-1.2) H 12/02/18 07:51 Estimated GFR 5 ml/min 12/02/18 07:51 BUN/Creatinine Ratio 5 % 12/02/18 07:51 Glucose 82 mg/dL (65-100) 12/02/18 07:51 POC Glucose 148 (70-105) H 12/02/18 09:44 Calcium 7.8 mg/dL (8.4-10.2) L 12/02/18 07:51 Total Bilirubin 0.40 mg/dL (0.1-1.2) 11/30/18 08:06 AST 14 units/L (5-40) 11/30/18 08:06 ALT < 5 units/L (7-56) L 11/30/18 08:06 Alkaline Phosphatase 74 units/L (35-129) 11/30/18 08:06 Total Protein 5.7 g/dL (6.3-8.2) L 11/30/18 08:06 Albumin 2.9 g/dL (3.9-5) L 11/30/18 08:06 Albumin/Globulin Ratio 1.0 % 11/30/18 08:06 Lipase 30 units/L (13-60) 11/30/18 08:06 Active Medications - Current Medications Current Medications: Generic Name Dose Route Start Last Admin Trade Name Freq PRN Reason Stop Dose Admin Amlodipine Besylate 10 mg 11/30/18 12:00 12/01/18 09:51 Norvasc PO Not Given DAILY [facility] Aspirin 81 mg 11/30/18 12:00 12/01/18 09:50 Halfprin Ec PO Not Given DAILY [facility] Atorvastatin Calcium 40 mg 11/30/18 12:00 12/01/18 09:51 Lipitor PO Not Given DAILY [facility] Dicyclomine HCl 10 mg 11/30/18 11:50 11/30/18 12:14 Bentyl PO 10 mg QID PRN Administration Pain, Mild (1-3) Heparin Sodium (Porcine) 5,000 unit 12/01/18 10:00 12/01/18 22:29 Heparin SUB-Q Not Given Q12HR RADHA Hydralazine HCl 100 mg 11/30/18 14:00 12/02/18 09:01 Apresoline PO Not Given TID RADHA Hydralazine HCl 10 mg 11/30/18 11:50 12/02/18 05:16 Apresoline IV 10 mg Q4HR PRN Administration SBP>170 or DBP>110 Sodium Chloride 100 mls @ 999 mls/hr 11/30/18 11:00 Nacl 0.9% IV LUIS PRN Hypotension Levofloxacin/Dextrose 500 mg in 100 mls @ 100 mls/hr 12/01/18 10:00 12/01/18 09:41 Levaquin 500mg/100ml IV 100 mls/hr Q48HR RADHA Administration Protocol Metronidazole 500 mg in 100 mls @ 100 mls/hr 12/01/18 14:00 12/02/18 07:13 Flagyl 500 Mg/100 Ml IV 100 mls/hr Q8HR RADHA Administration Protocol Isosorbide Mononitrate 20 mg 11/30/18 12:00 12/01/18 09:51 Monoket PO Not Given DAILY [facility] Metoclopramide HCl 5 mg 12/01/18 13:22 Reglan IV Q6H PRN Nausea And Vomiting Morphine Sulfate 2 mg 11/30/18 11:55 12/02/18 02:39 Morphine IV 2 mg Q4H PRN Administration Pain, Moderate (4-6) Ondansetron HCl 4 mg 11/30/18 14:00 12/02/18 07:12 Zofran Odt PO Not Given Q8HR [facility] Ondansetron HCl 4 mg 11/30/18 11:55 12/02/18 10:48 Zofran IV 4 mg Q8H PRN Administration Nausea And Vomiting Sodium Chloride 10 ml 11/30/18 22:00 12/01/18 21:38 Sodium Chloride Flush Syringe 10 Ml IV 10 ml BID RADHA Administration Sodium Chloride 10 ml 11/30/18 11:55 Sodium Chloride Flush Syringe 10 Ml IV PRN PRN LINE FLUSH
[2018-12-02] MEDS ORDERED: NACL 0.9% 1000 ML 1,000 ML IV SCH (14:00)
[2018-12-02] MEDS ORDERED: SUBLIMAZE ONE (14:34)
[2018-12-02] MEDS ORDERED: VERSED ONE (14:34)
[2018-12-02] MEDS ORDERED: DIPRIVAN 10 MG/ML IV ONE ×2 (14:34)
[2018-12-02] MEDS ORDERED: NORMODYNE IV ONE (15:21)
[2018-12-02] MEDS ORDERED: BREVIBLOC IV ONE (15:22)
[2018-12-02] MEDS ORDERED: WATER FOR IRRIG STERILE IR ONE (15:43)
--- NOTE | 2018-12-02 15:57 | Procedure Note ---
Date of procedure: 12/02/18 Pre-op diagnosis: Abdominal Pain/ Nausea and vomiting Post-op diagnosis: other (Mild to Moderate Distal Erosive Esophagitis/ Gastric Erosion/ Gastritis/ R/O Celiac Disease) Procedure: EGD with Biopsy Anesthesia: MAC Surgeon: OSMAR NEVAREZ Estimated blood loss: minimal Pathology: list Specimen disposition: to lab Condition: stable Disposition: same day (Treat with PPI and Reglan and prn Zofran for nusea and vomiting. Resume previous medication and avoid aspirin and NSAID for 5 days.)
--- NOTE | 2018-12-02 16:40 | Operative Report ---
PROCEDURE: EGD with biopsy. INDICATIONS: A 48-year-old female who has history of juvenile onset diabetes mellitus, end-stage renal disease for which she is on dialysis and hypertension, history of CVA. She had been having nausea, vomiting and abdominal pain. She was to have an EGD and a colonoscopy done, but the patient previously had been having diarrhea, which has since resolved and she is generally noncompliant and was not willing to take the prep and colonoscopy will be held off for now and only will be done if the patient has additional lower GI problems. EGD was done to make sure there was not any significant upper GI pathology. The patient had been having abdominal pain, nausea, vomiting. DESCRIPTION OF PROCEDURE: Procedure was done after getting informed consent with MAC anesthesia. Instrument was passed through the hypopharynx into the esophagus, which showed mild to moderate distal erosive esophagitis. Biopsy was done from the distal esophagus. Stomach showed antral erosion. There was no obvious evidence of gastroparesis present. The pylorus is patent. The duodenum in the first and second portion appeared normal. Biopsy was done from the second part of the duodenum to rule out for possible celiac disease. Additional biopsy was done from the gastric antrum, angularis incisura and gastric body to rule out for H. pylori and atrophic gastritis. There was minimal bleeding from the biopsy sites and no complications associated with the procedure. IMPRESSION: Abdominal pain, nausea, vomiting. No obvious evidence of gastroparesis noted. Mild to moderate distal erosive esophagitis, antral erosion gastritis. No peptic ulcer disease noted. Patent pylorus. No evidence of any gastric outlet obstruction and rule out celiac disease. There was minimal bleeding from the biopsy sites. No complications associated with the procedure. Plan is to treat the patient with PPI, Reglan and Zofran if needed. Avoid aspirin and aspirin-related products. The patient will be started back on oral diet and advance as tolerated to 1800 ADA and to avoid aspirin and aspirin-related products for the next 5 days. RN, Thalia Beltran was in the room throughout the entirety of the procedure. JOB# [id number] KATY/OBIE
[2018-12-02] MEDS: SODIUM CHLORIDE FLUSH SYRINGE 10 ML IV SCH ×2 (17:23→22:20)
[2018-12-02] MEDS: HALFPRIN EC PO SCH ×2 (19:00→19:02)
[2018-12-02] MEDS: MONOKET PO SCH (19:00)
[2018-12-02] MEDS: HEPARIN SUB-Q SCH ×2 (19:00→22:16)
[2018-12-02] MEDS: NORVASC PO SCH (19:01)
[2018-12-03] MEDS: APRESOLINE IV PRN (05:51)
[2018-12-03] MEDS: FLAGYL 500 MG/100 ML 500 MG/100 ML BAG IV SCH ×2 (05:51→13:56)
[2018-12-03] MEDS: MORPHINE IV PRN (05:52)
[2018-12-03] MEDS: APRESOLINE PO SCH ×2 (08:00→13:55)
--- NOTE | 2018-12-03 08:43 | Discharge Summary ---
Providers - Providers Date of Admission: 11/30/18 10:11 Date of discharge: 12/03/18 Attending physician: FRANKO ERVIN 11/30/18 09:42 Consult to Physician [CONS] Urgent Comment: Consulting Provider: JACKIE WATT Physician Instructions: Reason For Exam: hyperkalemia, needs dialysis 12/01/18 09:09 Consult to Physician [CONS] Routine Comment: Consulting Provider: OSMAR NEVAREZ Physician Instructions: Reason For Exam: abd pain [facility] Reason for admission: n/v/d Condition: Stable Hospital course: Patient is 48 yo female with diabetes, ESRD on dialysis who missed 2 dialysis sessions prior to admission. She missed e and . of last week with her Last dialysis 6 days RELAY TESTER. The patient underwent hemodialysis which she tolerated well. Patient was seen by nephrology in consultation who ordered for dialysis Friday schedule for now. Her outpatient schedule is however TTS at [facility] on [address] . Her manufacturing sales representative does not come to this hospital. She presented with nausea, vomiting, diarrhea. Patient vomited 3-4 times a day for past few days RELAY TESTER. She denied fever. patient was evaluated in Emergency Dept. CT Abdomen was obtained and revealed enteritis. The patient was treated empirically with antibiotics of Levaquin and Flagyl. Patient developed a rash to Levaquin which was discontinued. GI saw the patient in consultation and performed an EGD which revealed Mild to Moderate Distal Erosive Esophagitis/ Gastric Erosion/ Gastritis. GI recommended PPI, Reglan and when necessary Zofran for nausea and vomiting. The patient's diet was advanced which she tolerated. The patient can follow-up with GI as an outpatient for possible colonoscopy. Also, GI recommended no NSAIDs or aspirin for 5 days. Dedicated discharge time 32 minutes. Disposition: - TO HOME OR SELFCARE Time spent for discharge: 32 Core Measure Documentation - Palliative Care Palliative Care/ Comfort Measures: Not Applicable - Core Measures Any of the following diagnoses?: none Exam - Constitutional Vitals: Temp Pulse Resp BP Pulse Ox 98.4 F 100 H 20 190/90 95 12/03/18 05:40 12/03/18 05:51 12/03/18 05:40 12/03/18 05:51 12/03/18 05:40 General appearance: Present: no acute distress, well-nourished - EENT Eyes: Present: PERRL ENT: hearing intact, clear oral mucosa - Neck Neck: Present: supple, normal ROM - Respiratory Respiratory effort: normal Respiratory: bilateral: CTA - Cardiovascular Heart Sounds: Present: S1 & S2. Absent: rub, click - Extremities Extremities: pulses symmetrical, No edema Peripheral Pulses: within normal limits - Abdominal General gastrointestinal: Present: soft, non-tender, non-distended, normal bowel sounds Female genitourinary: Present: normal - Integumentary Integumentary: Present: clear, warm, dry - Musculoskeletal Musculoskeletal: gait normal, strength equal bilaterally - Psychiatric Psychiatric: appropriate mood/affect, intact judgment & insight - Neurologic Neurologic: CNII-XII intact, moves all extremities Plan Activity: no restrictions Weight Bearing Status: Full Weight Bearing Diet: regular Additional Instructions: avoid aspirin and NSAID for 5 days. [facility] [Primary Care Provider] - 3-5 Days OSMAR NEVAREZ MD [Staff Physician] - 7 Days Prescriptions: hydrALAZINE [Apresoline TAB] 100 mg PO TID #90 tab Dicyclomine [Bentyl] 10 mg PO QID PRN #30 capsule PRN Reason: Pain, Mild (1-3) AtorvaSTATin [Lipitor] 40 mg PO DAILY #30 tablet ISOSORBIDE MONOnitrate [Monoket] 20 mg PO DAILY #30 tablet amLODIPine [Norvasc] 10 mg PO DAILY #30 tablet Ondansetron [Zofran ODT TAB] 4 mg PO Q8HR #30 tab.zaid
--- NOTE | 2018-12-03 09:54 | Progress Note ---
Assessment and Plan Impression * End-stage renal disease on maintenance hemodialysis * Abdominal pain with diarrhea * Enteritis * Hypertension * Diabetes * Hyperkalemia * Noncompliance Recommendations * Patient had uneventful hemodialysis yesterday * Continue dialysis on MWF schedule for now * Her outpatient schedule is however TTS at [facility] on [address] . Her cardio tech does not come to this hospital * Procrit per protocol * Avoid nephrotoxins * Hold phosphate binders for now due to her GI symptoms * GI notes appreciated. She had EGD done yesterday. Colonoscopy was canceled due to poor prep * Patient also needs a permanent dialysis access Subjective Date of service: 12/03/18 Interval history: Patient is had uneventful hemodialysis yesterday. Had EGD yesterday as well. Abdominal pain and diarrhea both are better Objective - Vital Signs Vital signs: Vital Signs - 12hr 12/02/18 12/02/18 12/03/18 23:24 23:31 05:40 Temperature 98.9 F 98.4 F Pulse Rate 96 H 96 H 100 H Respiratory 18 20 Rate Blood Pressure 170/71 170/71 190/90 O2 Sat by Pulse 95 95 Oximetry 12/03/18 05:51 Temperature Pulse Rate 100 H Respiratory Rate Blood Pressure 190/90 O2 Sat by Pulse Oximetry - General Appearance General appearance: well-developed, well-nourished, appears stated age EENT: PERRL, mucous membranes moist Neck: no JVD, no thyromegaly, no carotid bruit, supple, other (right IJ PermCath in place) Respiratory: Present: Clear to Ascultation Cardiology: regular, normal heart rate, S1S2, no murmurs Gastrointestinal: normal, normoactive bowel sounds Integumentary: no rash, other (right TMA) - Lab 12/02/18 07:51 12/02/18 15:08 Most recent lab results Calcium 7.8 mg/dL (8.4-10.2) L 12/02/18 07:51 Medications & Allergies - Medications Allergies/Adverse Reactions: Allergies acetaminophen [From Lortab] Allergy (Verified 11/03/18 16:59) Unknown amoxicillin Allergy (Verified 07/03/18 20:57) Unknown hydrocodone [From Lortab] Allergy (Verified 11/03/18 16:59) Unknown Penicillins Allergy (Verified 05/19/18 13:02) Unknown tramadol Allergy (Verified 07/03/18 20:57) Unknown IV contrast Allergy (Uncoded 01/15/17 17:55) Rash Home Medications: Home Medications Medication Instructions Recorded Confirmed Last Taken Type AtorvaSTATin [Lipitor] 40 mg PO DAILY #30 tablet 12/03/18 Unknown Rx Dicyclomine [Bentyl] 10 mg PO QID PRN #30 capsule 12/03/18 Unknown Rx ISOSORBIDE MONOnitrate [Monoket] 20 mg PO DAILY #30 tablet 12/03/18 Unknown Rx Ondansetron [Zofran ODT TAB] 4 mg PO Q8HR #30 tab.rapdis 12/03/18 Unknown Rx amLODIPine [Norvasc] 10 mg PO DAILY #30 tablet 12/03/18 Unknown Rx cloNIDine-TTS PATCH [Catapres-Tts 1 patch TD Q7D #4 patch 12/03/18 Unknown Rx Patch] hydrALAZINE [Apresoline TAB] 100 mg PO TID #90 tab 12/03/18 Unknown Rx metroNIDAZOLE [Flagyl] 500 mg PO Q8HR 5 Days #15 tablet 12/03/18 Unknown Rx Active Medications: Generic Name Dose Route Start Last Admin Trade Name Freq PRN Reason Stop Dose Admin Amlodipine Besylate 10 mg 11/30/18 12:00 12/02/18 19:01 Norvasc PO Not Given DAILY [facility] Aspirin 81 mg 11/30/18 12:00 12/02/18 19:02 Halfprin Ec PO Not Given DAILY [facility] Atorvastatin Calcium 40 mg 11/30/18 12:00 12/02/18 19:03 Lipitor PO Not Given DAILY [facility] Dicyclomine HCl 10 mg 11/30/18 11:50 11/30/18 12:14 Bentyl PO 10 mg QID PRN Administration Pain, Mild (1-3) Heparin Sodium (Porcine) 5,000 unit 12/01/18 10:00 12/02/18 22:16 Heparin SUB-Q Not Given Q12HR RADHA Hydralazine HCl 100 mg 11/30/18 14:00 12/02/18 22:18 Apresoline PO 100 mg TID RADHA Administration Hydralazine HCl 10 mg 11/30/18 11:50 12/03/18 05:51 Apresoline IV 10 mg Q4HR PRN Administration SBP>170 or DBP>110 Sodium Chloride 100 mls @ 999 mls/hr 11/30/18 11:00 Nacl 0.9% IV LUIS PRN Hypotension Levofloxacin/Dextrose 500 mg in 100 mls @ 100 mls/hr 12/01/18 10:00 12/01/18 09:41 Levaquin 500mg/100ml IV 100 mls/hr Q48HR RADHA Administration Protocol Metronidazole 500 mg in 100 mls @ 100 mls/hr 12/01/18 14:00 12/03/18 05:51 Flagyl 500 Mg/100 Ml IV 100 mls/hr Q8HR RADHA Administration Protocol Sodium Chloride 1,000 mls @ 50 mls/hr 12/02/18 14:00 12/02/18 14:41 Nacl 0.9% 1000 Ml IV 50 mls/hr DIRECT RADHA Administration Isosorbide Mononitrate 20 mg 11/30/18 12:00 12/02/18 19:00 Monoket PO Not Given DAILY [facility] Metoclopramide HCl 5 mg 12/01/18 13:22 12/02/18 23:30 Reglan IV 5 mg Q6H PRN Administration Nausea And Vomiting Morphine Sulfate 2 mg 11/30/18 11:55 12/03/18 05:52 Morphine IV 2 mg Q4H PRN Administration Pain, Moderate (4-6) Ondansetron HCl 4 mg 11/30/18 14:00 12/02/18 22:16 Zofran Odt PO Not Given Q8HR [facility] Ondansetron HCl 4 mg 11/30/18 11:55 12/02/18 10:48 Zofran IV 4 mg Q8H PRN Administration Nausea And Vomiting Sodium Chloride 10 ml 11/30/18 22:00 12/02/18 22:20 Sodium Chloride Flush Syringe 10 Ml IV 10 ml BID RADHA Administration Sodium Chloride 10 ml 11/30/18 11:55 Sodium Chloride Flush Syringe 10 Ml IV PRN PRN LINE FLUSH
[2018-12-03] MEDS: HALFPRIN EC PO SCH (10:00)
[2018-12-03] MEDS: LEVAQUIN 500MG/100ML 500 MG/100 ML BAG IV SCH (10:34)
[2018-12-03] MEDS: ZOFRAN IV PRN (10:34)
[2018-12-03] MEDS: BENTYL PO PRN (10:35)
[2018-12-03] MEDS: NORVASC PO SCH (10:35)
[2018-12-03] MEDS: MONOKET PO SCH (10:36)
[2018-12-03] MEDS: HEPARIN SUB-Q SCH (10:38)
[2018-12-03] MEDS: SODIUM CHLORIDE FLUSH SYRINGE 10 ML IV SCH (10:43)
[2018-12-03] MEDS: ZOFRAN ODT PO SCH ×2 (13:55→14:00)
[2018-12-03] MEDS ORDERED: APRESOLINE IV ONE (16:32)
[2018-12-03 18:17] VITALS: BP 148/82
== END 2018-12-03 18:44 | disposition home or self-care (01) | DRG 391 ==
LOC: ED 07:33 → 3A 10:11
PROVIDERS: ADMIT Internal Medicine; ATTEND Hospitalist
PROC: 5A1D70Z Performance of Urinary Filtration, Intermittent, Less than 6 Hours Per Day (ICD-10-PCS; 2018-11-30)
PROC: 0DB98ZX Excision of Duodenum, Via Natural or Artificial Opening Endoscopic, Diagnostic (ICD-10-PCS; principal; 2018-12-02)
PROC: 0DB68ZX Excision of Stomach, Via Natural or Artificial Opening Endoscopic, Diagnostic (ICD-10-PCS; 2018-12-02)
PROC: 0DB38ZX Excision of Lower Esophagus, Via Natural or Artificial Opening Endoscopic, Diagnostic (ICD-10-PCS; 2018-12-02)
PROC: 5A1D70Z Performance of Urinary Filtration, Intermittent, Less than 6 Hours Per Day (ICD-10-PCS; 2018-12-02)
DX: K52.9 Noninfective gastroenteritis and colitis, unspecified (principal); N18.6 End stage renal disease; I12.0 Hypertensive chronic kidney disease with stage 5 chronic kidney disease or end stage renal disease; K22.10 Ulcer of esophagus without bleeding; K90.0 Celiac disease; K25.9 Gastric ulcer, unspecified as acute or chronic, without hemorrhage or perforation; K29.70 Gastritis, unspecified, without bleeding; K21.0 Gastro-esophageal reflux disease with esophagitis; E87.5 Hyperkalemia; E11.22 Type 2 diabetes mellitus with diabetic chronic kidney disease; Z99.2 Dependence on renal dialysis; Z88.5 Allergy status to narcotic agent; Z88.0 Allergy status to penicillin; Z88.8 Allergy status to other drugs, medicaments and biological substances; Z88.1 Allergy status to other antibiotic agents; Z91.041 Radiographic dye allergy status; Z83.3 Family history of diabetes mellitus; Z86.73 Personal history of transient ischemic attack (TIA), and cerebral infarction without residual deficits; Z87.442 Personal history of urinary calculi; Z89.431 Acquired absence of right foot; Z79.51 Long term (current) use of inhaled steroids; Z79.4 Long term (current) use of insulin
CPT/HCPCS: 36415; 74176; 80048; 80053; 82962; 83690; 84132; 85025; 87040; 87116; 88305; 88342; 96374; 96375; G0378; A9270-GY; J0360; J1644; J1956; J2250; J2270; J2405; J2704; J2765; J3010; J7030; Q0162

== ENCOUNTER 2018-12-10 07:48 | Inpatient (IN) | payer MEDICARE ==
[2018-12-10] MEDS ORDERED: NORMODYNE IV ONE (08:02)
[2018-12-10] MEDS ORDERED: MORPHINE IV ONE ×2 (08:02→20:59)
[2018-12-10] MEDS ORDERED: ZOFRAN IV ONE ×2 (08:02→11:05)
--- NOTE | 2018-12-10 08:22 | XRay Report ---
AP CHEST: HISTORY: Dyspnea Compared to 11/20/18. The dual-lumen right IJ venous catheter remains in good position. Mild cardiomegaly is stable. There is mild increase in pulmonary venous congestion. Mild atelectatic changes at the right lung base and small right pleural effusion are suspected. The left lung is clear. The small left pleural effusion has resolved since the previous exam. IMPRESSION: Mild volume overload/CHF.
[2018-12-10 08:28] LABS: Basophils # (Auto) 0.1 K/mm3 (0.0-0.1); Basophils % (Auto) 0.8 % (0.0-1.8); Eosinophils # (Auto) 0.1 K/mm3 (0.0-0.4); Eosinophils % (Auto) 1.3 % (0.0-4.3); Hematocrit 26.8 % (30.3-42.9); Hemoglobin 8.8 gm/dl (10.1-14.3); Lymphocytes % (Auto) 10.5 % (13.4-35.0); Mean Corpuscular HGB Conc 33 % (30-34); Mean Corpuscular Volume 85 fl (79-97); Monocytes # (Auto) 0.9 K/mm3 (0.0-0.8); Monocytes % (Auto) 9.7 % (0.0-7.3); Platelet Count 204 K/mm3 (140-440); Red Blood Count 3.15 M/mm3 (3.65-5.03); Red Cell Distribution Width 16.2 % (13.2-15.2)
[2018-12-10 08:44] LABS: Albumin 3.3 g/dL (3.9-5); Calcium 7.8 mg/dL (8.4-10.2)
--- NOTE | 2018-12-10 10:44 | Emergency Department Report ---
ED Abdominal Pain HPI - General Chief Complaint: Chest Pain Stated Complaint: HBP Time Seen by Provider: 12/10/18 07:55 Source: patient, EMS Mode of arrival: Ambulatory Limitations: Other - History of Present Illness Initial Comments: Mrs. Duran is a 48 yo female with hx of ESRD HD //, DM, blindness who presents with nausea and vomiting. En route, EMS reported chest pain. Upon clarification, Mrs. Duran stated that she had throbbing in left shoulder without persistent chest pain. Main concern that this time is nausea and vomiting. According to EMR, Mrs. Duran receives HD -: Gradual, This morning Severity: moderate Severity scale (0 -10): 10 Quality: cramping Consistency: constant Improves With: nothing Worsens With: eating Associated Symptoms: nausea, vomiting - Related Data Previous Rx's Medication Instructions Recorded Last Taken Type AtorvaSTATin [Lipitor] 40 mg PO DAILY #30 tablet 12/03/18 Unknown Rx Dicyclomine [Bentyl] 10 mg PO QID PRN #30 capsule 12/03/18 Unknown Rx ISOSORBIDE MONOnitrate [Monoket] 20 mg PO DAILY #30 tablet 12/03/18 Unknown Rx Ondansetron [Zofran ODT TAB] 4 mg PO Q8HR #30 tab.rapdis 12/03/18 Unknown Rx amLODIPine [Norvasc] 10 mg PO DAILY #30 tablet 12/03/18 Unknown Rx cloNIDine-TTS PATCH [Catapres-Tts 1 patch TD Q7D #4 patch 12/03/18 Unknown Rx Patch] hydrALAZINE [Apresoline TAB] 100 mg PO TID #90 tab 12/03/18 Unknown Rx metroNIDAZOLE [Flagyl] 500 mg PO Q8HR 5 Days #15 tablet 12/03/18 Unknown Rx Allergies Allergy/AdvReac Type Severity Reaction Status Date / Time acetaminophen [From Lortab] Allergy Unknown Verified 11/03/18 16:59 amoxicillin Allergy Unknown Verified 07/03/18 20:57 hydrocodone [From Lortab] Allergy Unknown Verified 11/03/18 16:59 Penicillins Allergy Unknown Verified 05/19/18 13:02 tramadol Allergy Unknown Verified 07/03/18 20:57 IV contrast Allergy Rash Uncoded 01/15/17 17:55 ED Review of Systems ROS: Stated complaint: HBP Other details as noted in HPI Comment: All other systems reviewed and negative Constitutional: malaise Cardiovascular: chest pain Gastrointestinal: nausea, vomiting ED Past Medical Hx - Past Medical History Previous Medical History?: Yes Hx Hypertension: Yes Hx CVA: Yes Hx Heart Attack/AMI: No Hx Congestive Heart Failure: No Hx Diabetes: Yes Hx Deep Vein Thrombosis: No Hx Pulmonary Embolism: No Hx Liver Disease: No Hx Renal Disease: Yes Hx Kidney Stones: Yes Hx Asthma: Yes Hx COPD: No Hx Tuberculosis: No Hx HIV: No Additional medical history: psorasis. NEUROPATHY. FIBROIDS. DIALYSIS MWF - Surgical History Past Surgical History?: Yes Hx Coronary Stent: No Hx Pacemaker: No Hx Internal Defibrillator: No Additional Surgical History: X 1 , Hx. left wrist surgery 2 toes amputated r) foot. partial right foot amputation - Social History Smoking Status: Former Smoker Substance Use Type: None - Medications Home Medications: Home Medications Medication Instructions Recorded Confirmed Last Taken Type AtorvaSTATin [Lipitor] 40 mg PO DAILY #30 tablet 12/03/18 Unknown Rx Dicyclomine [Bentyl] 10 mg PO QID PRN #30 capsule 12/03/18 Unknown Rx ISOSORBIDE MONOnitrate [Monoket] 20 mg PO DAILY #30 tablet 12/03/18 Unknown Rx Ondansetron [Zofran ODT TAB] 4 mg PO Q8HR #30 tab.rapdis 12/03/18 Unknown Rx amLODIPine [Norvasc] 10 mg PO DAILY #30 tablet 12/03/18 Unknown Rx cloNIDine-TTS PATCH [Catapres-Tts 1 patch TD Q7D #4 patch 12/03/18 Unknown Rx Patch] hydrALAZINE [Apresoline TAB] 100 mg PO TID #90 tab 12/03/18 Unknown Rx metroNIDAZOLE [Flagyl] 500 mg PO Q8HR 5 Days #15 tablet 12/03/18 Unknown Rx ED Physical Exam - General Limitations: Other General appearance: alert, in no apparent distress, other (actively retching, mild facial edema, appears chronically ill, pale) - Head Head exam: Present: atraumatic, normocephalic - Eye Eye exam: Present: normal appearance - ENT ENT exam: Present: mucous membranes dry - Neck Neck exam: Present: normal inspection, full ROM - Respiratory Respiratory exam: Present: normal lung sounds bilaterally. Absent: respiratory distress, wheezes, rales, stridor, chest wall tenderness, accessory muscle use, decreased breath sounds - Cardiovascular Cardiovascular Exam: Present: regular rate, normal rhythm, normal heart sounds. Absent: systolic murmur, diastolic murmur, rubs, gallop - GI/Abdominal GI/Abdominal exam: Present: soft, normal bowel sounds. Absent: distended, tenderness, guarding, rebound - Extremities Exam Extremities exam: Present: normal inspection - Back Exam Back exam: Present: normal inspection - Neurological Exam Neurological exam: Present: alert, oriented X3 - Psychiatric Psychiatric exam: Present: normal affect, normal mood - Skin Skin exam: Present: dry, intact, pallor. Absent: rash ED Course Vital Signs 12/10/18 12/10/18 12/10/18 08:09 08:15 08:16 Temperature 98.3 F Pulse Rate 94 H 93 H Respiratory 18 18 Rate Blood Pressure 195/95 195/95 O2 Sat by Pulse 96 96 97 Oximetry 12/10/18 12/10/18 12/10/18 08:30 08:45 09:01 Temperature Pulse Rate 90 86 101 H Respiratory 16 17 15 Rate Blood Pressure 194/94 186/91 213/108 O2 Sat by Pulse 96 95 97 Oximetry 12/10/18 12/10/18 12/10/18 09:03 09:06 09:15 Temperature Pulse Rate 97 H 82 Respiratory 18 20 Rate Blood Pressure 213/108 213/108 O2 Sat by Pulse 90 Oximetry 12/10/18 09:17 Temperature Pulse Rate Respiratory 18 Rate Blood Pressure O2 Sat by Pulse 99 Oximetry ED Medical Decision Making - Lab Data Result diagrams: 12/10/18 08:11 12/10/18 08:07 - EKG Data 12/10/18 10:41 EKG obtained 0803 Normal sinus rhythm rate 95 beats minute normal axis normal intervals no signs of ischemia and no significant ST elevation peaked T waves present - Radiology Data Radiology results: report reviewed mild pulmonary edema - Medical Decision Making Mrs. Duran presents primarily with nausea vomiting. Previous episodes of nausea vomiting requiring hospitalization. Transient chest pain reported per EMS. Not present at this time. Do not suspect acute coronary syndrome with this presentation. With elevated potassium and lack of transport to hemodialysis, urgent nephrology consultation arranged. Admitted to hospital service for further treatment and evaluation. Hypertensive urgency addressed with IV antihypertensive medication. Critical care attestation.: If time is entered above; I have spent that time in minutes in the direct care of this critically ill patient, excluding procedure time. ED Disposition Clinical Impression: Intractable nausea and vomiting, End stage renal disease on dialysis, Hypertensive urgency, malignant Disposition: DC-[id number] OP ADMIT IP TO THIS HOSP Is pt being admited?: Yes Does the pt Need Aspirin: No Condition: Stable Referrals: KD BARROW MD [Primary Care Provider] - 3-5 Days
[2018-12-10] MEDS ORDERED: D50W (25GM) Syringe IV PRN (11:03)
[2018-12-10] MEDS ORDERED: NACL 0.9% 100 ML IV PRN (11:05)
--- NOTE | 2018-12-10 11:12 | History and Physical Report ---
History of Present Illness Date of examination: 12/10/18 Chief complaint: Shortness of breath History of present illness: 48-year-old female with past medical history significant for end stage disease on hemodialysis TTS, diabetes mellitus, hypertension, asthma, legally blind presented to the emergency department complaining of shortness of breath that started yesterday. Patient is also complaining epigastric, severe throbbing point pain, 10 out of 10 intensity was no radiation, associated with nausea and vomiting. Patient is also complaining left-sided epigastric pain, sharp, 10 out of 10 intensity, associated with left arm numbness. Patient was admitted recently and was treated for enteritis and discharge. Patient said she didn't took her blood pressure medications today. REVIEW OF SYSTEMS: GENERAL: no weight change, no fatigue, no fever HEAD: no head ache EYES: no blurry vision, no acute visual loss EARS: no hearing loss, no discharge, no earache NOSE: no stuffiness, no sneezing, no discharge MOUTH, THROAT AND NECK: no bleeding gums, no sore throat, no swollen neck CARDIAC: As stated in the HPI. RESPIRATORY: As stated in the HPI. GI: As stated in HPI. URINARY: no change in frequency, no urgency, no polyuria, no hematuria, no incontinence MUSCULOSKELETAL: no muscle weakness, no pain, no joint stiffness NEUROLOGIC: no loss of sensation/numbness, no tingling, no tremors, no weakness/paralysis HEMATOLOGIC: no anemia, no easy bruising SKIN: no rashes ENDOCRINE: no heat/cold intolerance, no polyuria, no polydipsia, no thyroid problems PSYCHIATRIC: no anxiety, no depression, no suicidal ideations Past History Past Medical History: diabetes, ESRD, hypertension, hyperlipidemia Past Surgical History: , Other (right abdominal dictation) Social history: full code. denies: smoking, alcohol abuse, prescription drug abuse, IV drug use Family history: no significant family history Medications and Allergies Allergies Allergy/AdvReac Type Severity Reaction Status Date / Time acetaminophen [From Lortab] Allergy Unknown Verified 11/03/18 16:59 amoxicillin Allergy Unknown Verified 07/03/18 20:57 hydrocodone [From Lortab] Allergy Unknown Verified 11/03/18 16:59 Penicillins Allergy Unknown Verified 05/19/18 13:02 tramadol Allergy Unknown Verified 07/03/18 20:57 IV contrast Allergy Rash Uncoded 01/15/17 17:55 Home Medications Medication Instructions Recorded Confirmed Last Taken Type AtorvaSTATin [Lipitor] 40 mg PO DAILY #30 tablet 12/03/18 Unknown Rx Dicyclomine [Bentyl] 10 mg PO QID PRN #30 capsule 12/03/18 Unknown Rx ISOSORBIDE MONOnitrate [Monoket] 20 mg PO DAILY #30 tablet 12/03/18 Unknown Rx Ondansetron [Zofran ODT TAB] 4 mg PO Q8HR #30 tab.rapdis 12/03/18 Unknown Rx amLODIPine [Norvasc] 10 mg PO DAILY #30 tablet 12/03/18 Unknown Rx cloNIDine-TTS PATCH [Catapres-Tts 1 patch TD Q7D #4 patch 12/03/18 Unknown Rx Patch] hydrALAZINE [Apresoline TAB] 100 mg PO TID #90 tab 12/03/18 Unknown Rx metroNIDAZOLE [Flagyl] 500 mg PO Q8HR 5 Days #15 tablet 12/03/18 Unknown Rx Active Meds: Active Medications Clonidine HCl (Catapres-Tts Patch) 0.2 mg TD QWEEK RADHA Dextrose (D50w (25gm) Syringe) 50 ml IV PRN PRN PRN Reason: Hypoglycemia Hydralazine HCl (Apresoline) 20 mg IV Q4H PRN PRN Reason: Hypertension Insulin Human Lispro (Humalog) 0 unit SUB-Q ACHS RADHA; Protocol Pantoprazole Sodium (Protonix) 40 mg IV ONCE ONE Stop: 12/10/18 11:03 Exam - Physical Exam Narrative exam: In distress from pain. The patient appeared well nourished and normally developed. Vital signs as documented. Head exam is unremarkable. No scleral icterus . Neck is without jugular venous distension, thyromegaly, or carotid bruits. Lungs are clear to auscultation. Cardiac exam reveals regular rate and Rhythm. First and second heart sounds normal. No murmurs, rubs or gallops. Abdominal exam reveals normal bowel sounds, no masses, no organomegaly and no aortic enlargement. Extremities right foot amputation. 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 No focal weakness. - Constitutional Vitals: Temp Pulse Resp BP Pulse Ox 98.3 F 83 14 164/89 96 12/10/18 08:16 12/10/18 10:45 12/10/18 10:45 12/10/18 10:30 12/10/18 10:45 Results - Labs CBC & Chem 7: 12/10/18 08:11 12/10/18 08:07 Labs: Laboratory Last Values WBC 9.3 K/mm3 (4.5-11.0) 12/10/18 08:11 RBC 3.15 M/mm3 (3.65-5.03) L 12/10/18 08:11 Hgb 8.8 gm/dl (10.1-14.3) L 12/10/18 08:11 Hct 26.8 % (30.3-42.9) L 12/10/18 08:11 MCV 85 fl (79-97) 12/10/18 08:11 MCH 28 pg (28-32) 12/10/18 08:11 MCHC 33 % (30-34) 12/10/18 08:11 RDW 16.2 % (13.2-15.2) H 12/10/18 08:11 Plt Count 204 K/mm3 (140-440) 12/10/18 08:11 Lymph % (Auto) 10.5 % (13.4-35.0) L 12/10/18 08:11 Hughes % (Auto) 9.7 % (0.0-7.3) H 12/10/18 08:11 Eos % (Auto) 1.3 % (0.0-4.3) 12/10/18 08:11 Baso % (Auto) 0.8 % (0.0-1.8) 12/10/18 08:11 Lymph # 1.0 K/mm3 (1.2-5.4) L 12/10/18 08:11 Hughes # 0.9 K/mm3 (0.0-0.8) H 12/10/18 08:11 Eos # 0.1 K/mm3 (0.0-0.4) 12/10/18 08:11 Baso # 0.1 K/mm3 (0.0-0.1) 12/10/18 08:11 Seg Neutrophils % 77.7 % (40.0-70.0) H 12/10/18 08:11 Seg Neutrophils # 7.2 K/mm3 (1.8-7.7) 12/10/18 08:11 Sodium 136 mmol/L (137-145) L 12/10/18 08:07 Potassium 5.7 mmol/L (3.6-5.0) H 12/10/18 08:07 Chloride 96.3 mmol/L (98-107) L 12/10/18 08:07 Carbon Dioxide 28 mmol/L (22-30) 12/10/18 08:07 Anion Gap 17 mmol/L 12/10/18 08:07 BUN 26 mg/dL (7-17) H 12/10/18 08:07 Creatinine 6.9 mg/dL (0.7-1.2) H 12/10/18 08:07 Estimated GFR 6 ml/min 12/10/18 08:07 BUN/Creatinine Ratio 4 % 12/10/18 08:07 Glucose 118 mg/dL (65-100) H 12/10/18 08:07 Calcium 7.8 mg/dL (8.4-10.2) L 12/10/18 08:07 Total Bilirubin 0.40 mg/dL (0.1-1.2) 12/10/18 08:07 AST 14 units/L (5-40) 12/10/18 08:07 ALT 6 units/L (7-56) L 12/10/18 08:07 Alkaline Phosphatase 74 units/L (35-129) 12/10/18 08:07 Total Protein 6.3 g/dL (6.3-8.2) 12/10/18 08:07 Albumin 3.3 g/dL (3.9-5) L 12/10/18 08:07 Albumin/Globulin Ratio 1.1 % 12/10/18 08:07 Lipase 59 units/L (13-60) 12/10/18 08:07 Assessment and Plan Assessment and plan: Acute respiratory failure due to fluid overload, ESRD on hemodialysis - Nephrology is consulted for dialysis, her dialysis is due today - Chest x-ray shows mild pulmonary congestion - Oxygen support Epigastric pain - Patient is on IV pantoprazole, will consult GI Epigastric pain, likely due to uncontrolled hypertension - Pain control, control blood pressure - Trend cardiac enzymes - EKG is normal Hypertensive urgency - Patient was given IV labetalol - We will give IV hydralazine, dialysis Diabetes mellitus - Sliding scale insulin DVT prophylaxis - Heparin Disposition - Admit to telemetry. Advance Directives: Yes VTE prophylaxis?: Chemical Plan of care discussed with patient/family: Yes
[2018-12-10] MEDS ORDERED: ZOFRAN ONE (11:14)
[2018-12-10] MEDS ORDERED: PHENERGAN PR PRN (11:23)
[2018-12-10] MEDS ORDERED: PROTONIX IV ONE (12:02)
--- NOTE | 2018-12-10 12:44 | Consultation ---
History of Present Illness - Reason for Consult Consult date: 12/10/18 end stage renal disease, hyperkalemia, accelerated hypertension Requesting physician: MÓNICA GORDON - History of Present Illness Mrs. Duran is a 48 yo female with hx of ESRD HD //, DM, blindness who presents with nausea and vomiting. En route, EMS reported chest pain. Upon clarification, Mrs. Duran stated that she had throbbing in left shoulder without persistent chest pain. Main concern that this time is nausea and vomiting. According to EMR, Mrs. Duran receives HD -: Gradual, This morning Severity: moderate Severity scale (0 -10): 10 Quality: cramping Consistency: constant Improves With: nothing Worsens With: eating Associated Symptoms: nausea, vomiting ROS: Stated complaint: HBP Other details as noted in HPI Comment: All other systems reviewed and negative Constitutional: malaise Cardiovascular: chest pain Gastrointestinal: nausea, vomiting - Past Medical History Previous Medical History?: Yes Hx Hypertension: Yes Hx CVA: Yes Hx Heart Attack/AMI: No Hx Congestive Heart Failure: No Hx Diabetes: Yes Hx Deep Vein Thrombosis: No Hx Pulmonary Embolism: No Hx Liver Disease: No Hx Renal Disease: Yes Hx Kidney Stones: Yes Hx Asthma: Yes Hx COPD: No Hx Tuberculosis: No Hx HIV: No Additional medical history: psorasis. NEUROPATHY. FIBROIDS. DIALYSIS MWF - Surgical History Past Surgical History?: Yes Hx Coronary Stent: No Hx Pacemaker: No Hx Internal Defibrillator: No Additional Surgical History: X 1 , Hx. left wrist surgery 2 toes amputated r) foot. partial right foot amputation - Social History Smoking Status: Former Smoker Substance Use Type: None Past History Past Medical History: diabetes, ESRD, hypertension, hyperlipidemia Past Surgical History: , Other (right abdominal dictation) Social history: full code. denies: smoking, alcohol abuse, prescription drug abuse, IV drug use Family history: no significant family history Medications and Allergies Allergies Allergy/AdvReac Type Severity Reaction Status Date / Time acetaminophen [From Lortab] Allergy Unknown Verified 11/03/18 16:59 amoxicillin Allergy Unknown Verified 07/03/18 20:57 hydrocodone [From Lortab] Allergy Unknown Verified 11/03/18 16:59 Penicillins Allergy Unknown Verified 05/19/18 13:02 tramadol Allergy Unknown Verified 07/03/18 20:57 IV contrast Allergy Rash Uncoded 05/17/17 17:55 Home Medications Medication Instructions Recorded Confirmed Last Taken Type AtorvaSTATin [Lipitor] 40 mg PO DAILY #30 tablet 12/03/18 12/10/18 Unknown Rx Dicyclomine [Bentyl] 10 mg PO QID PRN #30 capsule 12/03/18 12/10/18 Unknown Rx ISOSORBIDE MONOnitrate [Monoket] 20 mg PO DAILY #30 tablet 12/03/18 12/10/18 Unknown Rx Ondansetron [Zofran ODT TAB] 4 mg PO Q8HR #30 tab.rapdis 12/03/18 12/10/18 Unknown Rx amLODIPine [Norvasc] 10 mg PO DAILY #30 tablet 12/03/18 12/10/18 Unknown Rx cloNIDine-TTS PATCH [Catapres-Tts 1 patch TD Q7D #4 patch 12/03/18 12/10/18 Unknown Rx Patch] hydrALAZINE [Apresoline TAB] 100 mg PO TID #90 tab 12/03/18 12/10/18 Unknown Rx Active Meds: Active Medications Clonidine HCl (Catapres-Tts Patch) 0.2 mg TD Th RADHA Dextrose (D50w (25gm) Syringe) 50 ml IV PRN PRN PRN Reason: Hypoglycemia Heparin Sodium (Porcine) (Heparin) 5,000 unit SUB-Q Q8HR RADHA Hydralazine HCl (Apresoline) 20 mg IV Q4H PRN PRN Reason: Hypertension Sodium Chloride (Nacl 0.9%) 100 mls @ 999 mls/hr IV LUIS PRN PRN Reason: Hypotension Insulin Human Lispro (Humalog) 0 unit SUB-Q ACHS [facility]; Protocol Metoclopramide HCl (Reglan) 10 mg IV Q6H PRN PRN Reason: Nausea And Vomiting Promethazine HCl (Phenergan) 25 mg LA Q6H PRN PRN Reason: Nausea And Vomiting Exam - Vital Signs Vital signs: Vital Signs Pulse Ox 96 12/10/18 08:09 - Physical Exam Narrative exam: - General Limitations: Other General appearance: alert, in no apparent distress, other (actively retching, mild facial edema, appears chronically ill, pale) - Head Head exam: Present: atraumatic, normocephalic - Eye Eye exam: Present: normal appearance - ENT ENT exam: Present: mucous membranes dry - Neck Neck exam: Present: normal inspection, full ROM - Respiratory Respiratory exam: Present: normal lung sounds bilaterally. Absent: respiratory distress, wheezes, rales, stridor, chest wall tenderness, accessory muscle use, decreased breath sounds - Cardiovascular Cardiovascular Exam: Present: regular rate, normal rhythm, normal heart sounds. Absent: systolic murmur, diastolic murmur, rubs, gallop - GI/Abdominal GI/Abdominal exam: Present: soft, normal bowel sounds. Absent: distended, tenderness, guarding, rebound - Extremities Exam Extremities exam: Present: normal inspection - Back Exam Back exam: Present: normal inspection - Neurological Exam Neurological exam: Present: alert, oriented X3 - Psychiatric Psychiatric exam: Present: normal affect, normal mood - Skin Skin exam: Present: dry, intact, pallor. Absent: rash Results - Lab Results 12/10/18 08:11 12/10/18 08:07 Most recent lab results Calcium 7.8 mg/dL (8.4-10.2) L 12/10/18 08:07 Assessment and Plan Impression * End-stage renal disease on maintenance hemodialysis * Abdominal pain with diarrhea * Enteritis * Hypertension * Diabetes * Hyperkalemia * Noncompliance Recommendations * Continue dialysis today and MWF schedule for now * Her outpatient schedule is however TTS at [facility] on [address] . 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 She had EGD done yesterday. Colonoscopy was canceled due to poor prep * Patient also needs a permanent dialysis access
--- NOTE | 2018-12-10 13:09 | Event Note ---
Date: 12/10/18 GI has been consulted on this patient for epigastric pain, however patient is established with Dr. Hernandez with a recent EGD on 12/02/2018. Informed hospitalist (Dr. King) of need for consult to be changed to Dr. Hernandez.
[2018-12-10] MEDS ORDERED: HEPARIN SUB-Q SCH (14:00)
[2018-12-10] MEDS: HumaLOG SUB-Q SCH ×3 (14:44→21:46)
[2018-12-10 15:50] LABS: Chol/HDL Ratio 2.89 %
[2018-12-10] MEDS: APRESOLINE IV PRN (21:46)
[2018-12-10] MEDS: REGLAN IV PRN (23:14)
--- NOTE | 2018-12-11 03:04 | Consultation ---
HISTORY OF PRESENT ILLNESS: This is a 48-year-old female with an underlying history of diabetes mellitus, end-stage renal disease for which she is on hemodialysis; hypertension, asthma and she is visually impaired with being legally blind. She was seen. The last time she was in the hospital, EGD at that time had showed presence of esophagitis, gastritis. She is not complaining of further worsening of her epigastric pain but does not complain of any radiation and it is associated with nausea, vomiting. She is being dialyzed at the moment. At the time of her evaluation, she appeared to be resting. She still complained of abdominal pain, but not as severe as before. PHYSICAL EXAMINATION: VITAL SIGNS: At the time of exam, her vitals were stable. HEENT: Shows no JVD. LUNGS: Shows reduced breath sounds. CARDIOVASCULAR: Grossly normal. ABDOMEN: Shows epigastric tenderness. There is no rebound. Bowel sounds present. EXTREMITIES: No pedal edema. NEUROLOGICAL: She is alert, but visually impaired. PAST MEDICAL HISTORY: Significant for diabetes mellitus, hypertension, hyperlipidemia, end-stage renal disease. PAST SURGICAL HISTORY: Includes C-sections. SOCIAL HISTORY: Denies history of smoking or alcohol use. FAMILY HISTORY: No significant family history present. ALLERGIES: She has a history of allergies to multiple medications including penicillin derivatives including amoxicillin, Tylenol, hydrocodone, tramadol and IV contrast. MEDICATIONS: She has been on multiple medications at home including atorvastatin, dicyclomine, Zofran, amlodipine, clonidine, hydralazine, and metronidazole. ASSESSMENT: Epigastric pain, possible worsening of her gastritis; diabetes mellitus, hypertension, history of cerebrovascular accident with weakness of the left side, impaired vision, hyperlipidemia, and end-stage renal disease. PLAN: The plan is to treat the patient with PPI and to repeat the EGD in the a.m. to make sure that there has not been any change in her pathology. The patient has also been offered to have a colonoscopy done, which she is unwilling to do. She had been unwilling to take the prep during her last hospital stay. The patient was seen in the dialysis unit with the dialysis nurse with me. JOB# [id number] KATY/NTS
[2018-12-11] MEDS: APRESOLINE IV PRN ×2 (05:20→14:45)
[2018-12-11] MEDS: HumaLOG SUB-Q SCH ×4 (08:00→22:08)
[2018-12-11] MEDS ORDERED: NACL 0.9% 1000 ML 1,000 ML IV SCH (09:00)
[2018-12-11] MEDS ORDERED: DIPRIVAN 10 MG/ML IV ONE ×2 (10:03)
[2018-12-11] MEDS ORDERED: XYLOCAINE 2% INFILTRATI ONE (10:03)
[2018-12-11] MEDS ORDERED: ZOFRAN ONE (10:42)
[2018-12-11] MEDS ORDERED: BENADRYL ONE (10:43)
--- NOTE | 2018-12-11 10:49 | Progress Note ---
Assessment and Plan Impression * End-stage renal disease on maintenance hemodialysis * Abdominal pain with diarrhea * Enteritis * Hypertension * Diabetes * Hyperkalemia * Noncompliance Recommendations * Continue dialysis today and qtthsat * Her outpatient schedule is however TTS at [facility] on [address] . Her social security assessor does not come to this hospital * Procrit per protocol * Avoid nephrotoxins * Hold phosphate binders for now due to her GI symptoms * GI notes appreciated. * Patient also needs a permanent dialysis access Subjective Date of service: 12/11/18 Principal diagnosis: esrd Interval history: resting in bed today Objective - Exam Narrative Exam: - General Limitations: Other General appearance: alert, in no apparent distress, other (actively retching, mild facial edema, appears chronically ill, pale) - Head Head exam: Present: atraumatic, normocephalic - Eye Eye exam: Present: normal appearance - ENT ENT exam: Present: mucous membranes dry - Neck Neck exam: Present: normal inspection, full ROM - Respiratory Respiratory exam: Present: normal lung sounds bilaterally. Absent: respiratory distress, wheezes, rales, stridor, chest wall tenderness, accessory muscle use, decreased breath sounds - Cardiovascular Cardiovascular Exam: Present: regular rate, normal rhythm, normal heart sounds. Absent: systolic murmur, diastolic murmur, rubs, gallop - GI/Abdominal GI/Abdominal exam: Present: soft, normal bowel sounds. Absent: distended, tenderness, guarding, rebound - Extremities Exam Extremities exam: Present: normal inspection - Back Exam Back exam: Present: normal inspection - Neurological Exam Neurological exam: Present: alert, oriented X3 - Psychiatric Psychiatric exam: Present: normal affect, normal mood - Skin Skin exam: Present: dry, intact, pallor. Absent: rash - Vital Signs Vital signs: Vital Signs - 12hr 12/10/18 12/10/18 12/11/18 23:03 23:57 03:28 Temperature 97.9 F 97.8 F 97.6 F Pulse Rate 92 H 80 Respiratory 19 16 16 Rate Blood Pressure 197/87 177/82 177/83 Blood Pressure [Left] O2 Sat by Pulse 96 97 Oximetry 12/11/18 12/11/18 12/11/18 05:20 06:37 07:56 Temperature 98.3 F Pulse Rate 95 H 105 H 85 Respiratory 16 Rate Blood Pressure 177/83 175/81 Blood Pressure 163/98 [Left] O2 Sat by Pulse 91 Oximetry 12/11/18 12/11/18 09:17 09:24 Temperature 98.3 F 98.3 F Pulse Rate 93 H 93 H Respiratory 17 17 Rate Blood Pressure 197/96 197/96 Blood Pressure [Left] O2 Sat by Pulse 98 98 Oximetry - Lab 12/10/18 08:11 12/10/18 08:07 Most recent lab results Calcium 7.8 mg/dL (8.4-10.2) L 12/10/18 08:07 Medications & Allergies - Medications Allergies/Adverse Reactions: Allergies acetaminophen [From Lortab] Allergy (Verified 11/03/18 16:59) Unknown amoxicillin Allergy (Verified 07/03/18 20:57) Unknown hydrocodone [From Lortab] Allergy (Verified 11/03/18 16:59) Unknown Penicillins Allergy (Verified 05/19/18 13:02) Unknown tramadol Allergy (Verified 07/03/18 20:57) Unknown IV contrast Allergy (Uncoded 01/15/17 17:55) Rash Home Medications: Home Medications Medication Instructions Recorded Confirmed Last Taken Type AtorvaSTATin [Lipitor] 40 mg PO DAILY #30 tablet 12/03/18 12/10/18 Unknown Rx Dicyclomine [Bentyl] 10 mg PO QID PRN #30 capsule 12/03/18 12/10/18 Unknown Rx ISOSORBIDE MONOnitrate [Monoket] 20 mg PO DAILY #30 tablet 12/03/18 12/10/18 Unknown Rx Ondansetron [Zofran ODT TAB] 4 mg PO Q8HR #30 tab.rapdis 12/03/18 12/10/18 Unknown Rx amLODIPine [Norvasc] 10 mg PO DAILY #30 tablet 12/03/18 12/10/18 Unknown Rx cloNIDine-TTS PATCH [Catapres-Tts 1 patch TD Q7D #4 patch 12/03/18 12/10/18 Unk nown Rx Patch] hydrALAZINE [Apresoline TAB] 100 mg PO TID #90 tab 12/03/18 12/10/18 Unknown Rx Active Medications: Generic Name Dose Route Start Last Admin Trade Name Freq PRN Reason Stop Dose Admin Clonidine HCl 0.2 mg 12/17/18 12:00 Catapres-Tts Patch TD Th RADHA Dextrose 50 ml 12/10/18 11:03 D50w (25gm) Syringe IV PRN PRN Hypoglycemia Hydralazine HCl 20 mg 12/10/18 11:05 12/11/18 05:20 Apresoline IV 20 mg Q4H PRN Administration Hypertension Sodium Chloride 100 mls @ 999 mls/hr 12/10/18 11:05 Nacl 0.9% IV LUIS PRN Hypotension Sodium Chloride 1,000 mls @ 50 mls/hr 12/11/18 09:00 12/11/18 09:31 Nacl 0.9% 1000 Ml IV 50 mls/hr DIRECT RADHA Administration Insulin Human Lispro 0 unit 12/10/18 11:30 12/10/18 21:46 Humalog SUB-Q Not Given ACHS [facility] Protocol Metoclopramide HCl 10 mg 12/10/18 11:23 12/10/18 23:14 Reglan IV 10 mg Q6H PRN Administration Nausea And Vomiting Pantoprazole Sodium 40 mg 12/11/18 10:00 Protonix PO QDAY [facility] Promethazine HCl 25 mg 12/10/18 11:23 Phenergan [place] Q6H PRN Nausea And Vomiting
[2018-12-11] MEDS ORDERED: BENTYL PO PRN (12:26)
--- NOTE | 2018-12-11 12:51 | Progress Note ---
Assessment and Plan Assessment and plan: Acute respiratory failure due to fluid overload, ESRD on hemodialysis - getting better after HD - Nephrology is following - Chest x-ray showed mild pulmonary congestion Epigastric pain - Patient is on IV pantoprazole - Patient will have EGD today per Dr Hernandez Chest pain with elevated cardiac enzymes - cardiology consult placed Hypertensive urgency - Patient was given IV labetalol - We will give IV hydralazine, dialysis Diabetes mellitus - Sliding scale insulin DVT prophylaxis - Heparin Disposition - continue inpatient care History Interval history: Patient was seen and evaluated this morning, patient was complaining intermittent abdominal pain and chest pain. Hospitalist Physical - Physical exam Narrative exam: In distress from pain. The patient appeared well nourished and normally developed. Vital signs as documented. Head exam is unremarkable. No scleral icterus . Neck is without jugular venous distension, thyromegaly, or carotid bruits. Lungs are clear to auscultation. Cardiac exam reveals regular rate and Rhythm. Abdominal exam reveals normal bowel sounds. Extremities right foot amputation. 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 No focal weakness. - Constitutional Vitals: Temp Pulse Resp BP Pulse Ox 98.3 F 70 17 197/96 98 12/11/18 09:24 12/11/18 11:00 12/11/18 09:24 12/11/18 09:24 12/11/18 09:24 Results - Labs CBC & Chem 7: 12/10/18 08:11 12/11/18 11:10 Labs: Laboratory Last Values WBC 9.3 K/mm3 (4.5-11.0) 12/10/18 08:11 RBC 3.15 M/mm3 (3.65-5.03) L 12/10/18 08:11 Hgb 8.8 gm/dl (10.1-14.3) L 12/10/18 08:11 Hct 26.8 % (30.3-42.9) L 12/10/18 08:11 MCV 85 fl (79-97) 12/10/18 08:11 MCH 28 pg (28-32) 12/10/18 08:11 MCHC 33 % (30-34) 12/10/18 08:11 RDW 16.2 % (13.2-15.2) H 12/10/18 08:11 Plt Count 204 K/mm3 (140-440) 12/10/18 08:11 Lymph % (Auto) 10.5 % (13.4-35.0) L 12/10/18 08:11 Storey % (Auto) 9.7 % (0.0-7.3) H 12/10/18 08:11 Eos % (Auto) 1.3 % (0.0-4.3) 12/10/18 08:11 Baso % (Auto) 0.8 % (0.0-1.8) 12/10/18 08:11 Lymph # 1.0 K/mm3 (1.2-5.4) L 12/10/18 08:11 Storey # 0.9 K/mm3 (0.0-0.8) H 12/10/18 08:11 Eos # 0.1 K/mm3 (0.0-0.4) 12/10/18 08:11 Baso # 0.1 K/mm3 (0.0-0.1) 12/10/18 08:11 Seg Neutrophils % 77.7 % (40.0-70.0) H 12/10/18 08:11 Seg Neutrophils # 7.2 K/mm3 (1.8-7.7) 12/10/18 08:11 Sodium 136 mmol/L (137-145) L 12/10/18 08:07 Potassium 5.2 mmol/L (3.6-5.0) H 12/11/18 11:10 Chloride 96.3 mmol/L (98-107) L 12/10/18 08:07 Carbon Dioxide 28 mmol/L (22-30) 12/10/18 08:07 Anion Gap 17 mmol/L 12/10/18 08:07 BUN 26 mg/dL (7-17) H 12/10/18 08:07 Creatinine 6.9 mg/dL (0.7-1.2) H 12/10/18 08:07 Estimated GFR 6 ml/min 12/10/18 08:07 BUN/Creatinine Ratio 4 % 12/10/18 08:07 Glucose 118 mg/dL (65-100) H 12/10/18 08:07 POC Glucose 95 (70-105) 12/11/18 09:19 Calcium 7.8 mg/dL (8.4-10.2) L 12/10/18 08:07 Total Bilirubin 0.40 mg/dL (0.1-1.2) 12/10/18 08:07 AST 14 units/L (5-40) 12/10/18 08:07 ALT 6 units/L (7-56) L 12/10/18 08:07 Alkaline Phosphatase 74 units/L (35-129) 12/10/18 08:07 Troponin T 0.638 ng/mL (0.00-0.029) H* 12/10/18 14:20 Total Protein 6.3 g/dL (6.3-8.2) 12/10/18 08:07 Albumin 3.3 g/dL (3.9-5) L 12/10/18 08:07 Albumin/Globulin Ratio 1.1 % 12/10/18 08:07 Triglycerides 106 mg/dL (2-149) 12/10/18 14:20 Cholesterol 133 mg/dL (50-199) 12/10/18 14:20 LDL Cholesterol Direct 73 mg/dL (50-130) 12/10/18 14:20 HDL Cholesterol 46 mg/dL (40-59) 12/10/18 14:20 Cholesterol/HDL Ratio 2.89 % 12/10/18 14:20 Lipase 59 units/L (13-60) 12/10/18 08:07 Active Medications - Current Medications Current Medications: Generic Name Dose Route Start Last Admin Trade Name Freq PRN Reason Stop Dose Admin Amlodipine Besylate 10 mg 12/11/18 13:00 Norvasc PO DAILY [facility] Atorvastatin Calcium 40 mg 12/11/18 12:45 Lipitor PO DAILY [facility] Clonidine HCl 0.2 mg 12/17/18 12:00 Catapres-Tts Patch TD Th [facility] Dextrose 50 ml 12/10/18 11:03 D50w (25gm) Syringe IV PRN PRN Hypoglycemia Dicyclomine HCl 10 mg 12/11/18 12:26 Bentyl PO QID PRN Pain, Mild (1-3) Hydralazine HCl 20 mg 12/10/18 11:05 12/11/18 05:20 Apresoline IV 20 mg Q4H PRN Administration Hypertension Hydralazine HCl 100 mg 12/11/18 14:00 Apresoline PO TID [facility] Sodium Chloride 100 mls @ 999 mls/hr 12/10/18 11:05 Nacl 0.9% IV LUIS PRN Hypotension Sodium Chloride 1,000 mls @ 50 mls/hr 12/11/18 09:00 12/11/18 09:31 Nacl 0.9% 1000 Ml IV 50 mls/hr DIRECT RADHA Administration Insulin Human Lispro 0 unit 12/10/18 11:30 12/10/18 21:46 Humalog SUB-Q Not Given ACHS [facility] Protocol Isosorbide Mononitrate 20 mg 12/11/18 13:00 Monoket PO DAILY [facility] Metoclopramide HCl 10 mg 12/10/18 11:23 12/10/18 23:14 Reglan IV 10 mg Q6H PRN Administration Nausea And Vomiting Oxycodone/Acetaminophen 2 tab 12/11/18 12:27 Percocet 5/325 PO Q6H PRN Pain, Moderate (4-6) Pantoprazole Sodium 40 mg 12/11/18 10:00 Protonix PO QDAY [facility] Promethazine HCl 25 mg 12/10/18 11:23 Phenergan [place] Q6H PRN Nausea And Vomiting
[2018-12-11] MEDS: MONOKET PO SCH ×2 (13:00→13:10)
[2018-12-11] MEDS: NORVASC PO SCH (13:10)
[2018-12-11] MEDS: APRESOLINE PO SCH ×3 (13:10→20:36)
[2018-12-11] MEDS: PROTONIX PO SCH (13:11)
[2018-12-11 13:24] LABS: Calcium 8.2 mg/dL (8.4-10.2)
[2018-12-11] MEDS: REGLAN IV PRN (14:19)
--- NOTE | 2018-12-11 15:11 | Event Note ---
Date: 12/11/18 Cardiology consultation attempted, pt just taken off floor to GI lab for endoscopy. Megan ACOSTA NP / DR. NUNES
--- NOTE | 2018-12-11 15:41 | Procedure Note ---
Date of procedure: 12/11/18 Pre-op diagnosis: Abdominal Pain/Nausea and Vomiting/ Atypical Chest Pain Post-op diagnosis: other (Moderate,Distal Erosive Esophagitis/ Gastritis/ No Peptic Ulcer Disease noted) Procedure: EGD with Biopsy Anesthesia: MAC Surgeon: OSMAR NEVAREZ Estimated blood loss: minimal Pathology: list Specimen disposition: to lab Condition: stable Disposition: same day (Treat with PPI and resume previous diet and hold aspirin and NSAID for 2 days.)
--- NOTE | 2018-12-11 17:29 | Operative Report ---
PROCEDURE: EGD with biopsy. INDICATIONS: A 48-year-old female with an underlying history of hypertension, end-stage renal disease, diabetes and prior history of CVA. She also has impaired vision. EGD was done because of abdominal pain, nausea, vomiting and atypical chest pain. DESCRIPTION OF PROCEDURE: The procedure was done after getting informed consent with MAC anesthesia. Instrument was passed through the hypopharynx into the esophagus, which showed moderate distal erosive esophagitis. There was no evidence of any Nia esophagitis. Stomach showed antral gastritis. Biopsy was done from the gastric antrum, the gastric body and angularis incisura to rule out for H. pylori and atrophic gastritis. The pylorus is patent. Duodenum in the first and the second portion appeared normal. There is no evidence of any peptic ulcer disease noted within the gastric or the duodenal lumen. ASSESSMENT: Atypical chest pain, possibly secondary to moderate distal erosive esophagitis, gastritis. No peptic ulcer disease noted. PLAN: To treat the patient with PPI and present supportive care and treatment and avoid aspirin and aspirin-related products for the next 1-2 days. There are no complications associated with the procedure. No excessive bleeding associated with the procedure. RN, Thalia Beltran was in the room for the entirety of the procedure. Thank you for the kind referral. JOB# [id number] KATY/OBIE
[2018-12-11] MEDS: PERCOCET 5/325 PO PRN (22:09)
[2018-12-12] MEDS: APRESOLINE IV PRN (00:55)
--- NOTE | 2018-12-12 08:49 | Progress Note ---
Subjective Date of service: 12/12/18 Principal diagnosis: esrd Interval history: Patient seen at the dialysis unit with the dialysis nurse. Lior was being dialysed and did not appear to be in any significant distress. States that her abdominal is still persisting but is improved compared to before. O/E HEENT: No JVD Resoiratory System: Lungs clear CVS: Grossly normal Abdomen: Slightly tender, bowel sounds present FLIGHT FOLLOWER: Normal, vision impaired A/P: Abdominal Pain (improving)/ Moderate,Distal Erosive Esophagitis. Gastritis/ ESRD: Continue with present treatment from a GI standpoint. Objective - Constitutional Vitals: Vital Signs - 12hr 12/11/18 12/11/18 12/12/18 22:09 23:33 03:42 Temperature 98.1 F 98.3 F Pulse Rate 93 H 79 Respiratory 18 18 16 Rate Blood Pressure 179/80 168/84 O2 Sat by Pulse 95 97 Oximetry - Labs CBC & Chem 7: 12/10/18 08:11 12/12/18 05:09 Labs: Abnormal lab results 12/11/18 12/11/18 12/11/18 Range/Units 08:03 11:05 11:10 Potassium 5.1 H 5.2 H (3.6-5.0) mmol/L BUN (7-17) mg/dL Creatinine 4.9 H (0.7-1.2) mg/dL POC Glucose 118 H (70-105) Calcium 8.2 L (8.4-10.2) mg/dL 12/11/18 12/12/18 Range/Units 21:07 05:09 Potassium 5.5 H (3.6-5.0) mmol/L BUN 19 H (7-17) mg/dL Creatinine 6.3 H (0.7-1.2) mg/dL POC Glucose 187 H (70-105) Calcium 8.0 L (8.4-10.2) mg/dL Medications & Allergies - Medications Allergies/Adverse Reactions: Allergies acetaminophen [From Lortab] Allergy (Verified 11/03/18 16:59) Unknown amoxicillin Allergy (Verified 07/03/18 20:57) Unknown hydrocodone [From Lortab] Allergy (Verified 11/03/18 16:59) Unknown Penicillins Allergy (Verified 05/19/18 13:02) Unknown tramadol Allergy (Verified 07/03/18 20:57) Unknown IV contrast Allergy (Uncoded 01/15/17 17:55) Rash Home Medications: Home Medications Medication Instructions Recorded Confirmed Last Taken Type AtorvaSTATin [Lipitor] 40 mg PO DAILY #30 tablet 12/03/18 12/10/18 Unknown Rx Dicyclomine [Bentyl] 10 mg PO QID PRN #30 capsule 12/03/18 12/10/18 Unknown Rx ISOSORBIDE MONOnitrate [Monoket] 20 mg PO DAILY #30 tablet 12/03/18 12/10/18 Unknown Rx Ondansetron [Zofran ODT TAB] 4 mg PO Q8HR #30 tab.rapdis 12/03/18 12/10/18 Unknown Rx amLODIPine [Norvasc] 10 mg PO DAILY #30 tablet 12/03/18 12/10/18 Unknown Rx cloNIDine-TTS PATCH [Catapres-Tts 1 patch TD Q7D #4 patch 12/03/18 12/10/18 Unknown Rx Patch] hydrALAZINE [Apresoline TAB] 100 mg PO TID #90 tab 12/03/18 12/10/18 Unknown Rx Active Medications: Generic Name Dose Route Start Last Admin Trade Name Freq PRN Reason Stop Dose Admin Amlodipine Besylate 10 mg 12/11/18 13:00 12/11/18 13:10 Norvasc PO Not Given DAILY RAD[facility] Atorvastatin Calcium 40 mg 12/11/18 12:45 12/11/18 13:33 Lipitor PO Not Given DAILY [facility] Clonidine HCl 0.2 mg 12/17/18 12:00 Catapres-Tts Patch TD Th [facility] Dextrose 50 ml 12/10/18 11:03 D50w (25gm) Syringe IV PRN PRN Hypoglycemia Dicyclomine HCl 10 mg 12/11/18 12:26 Bentyl PO QID PRN Pain, Mild (1-3) Hydralazine HCl 20 mg 12/10/18 11:05 12/12/18 00:55 Apresoline IV 20 mg Q4H PRN Administration Hypertension Hydralazine HCl 100 mg 12/11/18 14:00 12/11/18 20:36 Apresoline PO 100 mg TID RADHA Administration Sodium Chloride 100 mls @ 999 mls/hr 12/10/18 11:05 Nacl 0.9% IV LUIS PRN Hypotension Sodium Chloride 1,000 mls @ 50 mls/hr 12/11/18 09:00 12/11/18 09:31 Nacl 0.9% 1000 Ml IV 50 mls/hr DIRECT RADHA Administration Insulin Human Lispro 0 unit 12/10/18 11:30 12/11/18 22:08 Humalog SUB-Q 3 unit ACHS RAD[facility] Administration Protocol Isosorbide Mononitrate 20 mg 12/11/18 13:00 12/11/18 13:00 Monoket PO Not Given DAILY [facility] Metoclopramide HCl 10 mg 12/10/18 11:23 12/11/18 14:19 Reglan IV 10 mg Q6H PRN Administration Nausea And Vomiting Oxycodone/Acetaminophen 2 tab 12/11/18 12:27 12/11/18 22:09 Percocet 5/325 PO 2 tab Q6H PRN Administration Pain, Moderate (4-6) Pantoprazole Sodium 40 mg 12/11/18 10:00 12/11/18 13:11 Protonix PO Not Given QDAY [facility] Promethazine HCl 25 mg 12/10/18 11:23 Phenergan [place] Q6H PRN Nausea And Vomiting
--- NOTE | 2018-12-12 09:52 | Consultation ---
History of Present Illness Consult date: 12/12/18 Requesting physician: TONYA COYLE Consult reason: other (epigastric pain) History of present illness: 48-year-old female with a past medical history of diabetes, end-stage renal disease on hemodialysis, blindness, asthma, hypertension who presented to [facility] emergency department complaining of nausea and vomiting and epigastric pain. In the emergency department the patient was noted to have a blood pressure 195/95mmHg. She had a hemoglobin of 8.8, potassium 5.7 creatinine of 6.3, and troponin of 0.68. EKG was sinus rhythm with no acute changes. In the emergency department while the patient had an elevated blood pressure is also complaining of throbbing in her left shoulder. Past History Past Medical History: diabetes, ESRD, hypertension, hyperlipidemia Past Surgical History: , Other (right abdominal dictation) Social history: full code. denies: smoking, alcohol abuse, prescription drug abuse, IV drug use Family history: no significant family history Medications and Allergies Allergies Allergy/AdvReac Type Severity Reaction Status Date / Time acetaminophen [From Lortab] Allergy Unknown Verified 11/03/18 16:59 amoxicillin Allergy Unknown Verified 07/03/18 20:57 hydrocodone [From Lortab] Allergy Unknown Verified 11/03/18 16:59 Penicillins Allergy Unknown Verified 05/19/18 13:02 tramadol Allergy Unknown Verified 07/03/18 20:57 IV contrast Allergy Rash Uncoded 01/15/17 17:55 Home Medications Medication Instructions Recorded Confirmed Last Taken Type AtorvaSTATin [Lipitor] 40 mg PO DAILY #30 tablet 12/03/18 12/10/18 Unknown Rx Dicyclomine [Bentyl] 10 mg PO QID PRN #30 capsule 12/03/18 12/10/18 Unknown Rx ISOSORBIDE MONOnitrate [Monoket] 20 mg PO DAILY #30 tablet 12/03/18 12/10/18 Unknown Rx Ondansetron [Zofran ODT TAB] 4 mg PO Q8HR #30 tab.rapdis 12/03/18 12/10/18 Unknown Rx amLODIPine [Norvasc] 10 mg PO DAILY #30 tablet 12/03/18 12/10/18 Unknown Rx cloNIDine-TTS PATCH [Catapres-Tts 1 patch TD Q7D #4 patch 12/03/18 12/10/18 Unknown Rx Patch] hydrALAZINE [Apresoline TAB] 100 mg PO TID #90 tab 12/03/18 12/10/18 Unknown Rx Active Meds: Active Medications Amlodipine Besylate (Norvasc) 10 mg PO DAILY [facility] Last Admin: 12/11/18 13:10 Dose: Not Given Documented by: Atorvastatin Calcium (Lipitor) 40 mg PO DAILY [facility] Last Admin: 12/11/18 13:33 Dose: Not Given Documented by: Clonidine HCl (Catapres-Tts Patch) 0.2 mg TD Th [facility] Dextrose (D50w (25gm) Syringe) 50 ml IV PRN PRN PRN Reason: Hypoglycemia Dicyclomine HCl (Bentyl) 10 mg PO QID PRN PRN Reason: Pain, Mild (1-3) Hydralazine HCl (Apresoline) 20 mg IV Q4H PRN PRN Reason: Hypertension Last Admin: 12/12/18 00:55 Dose: 20 mg Documented by: Hydralazine HCl (Apresoline) 100 mg PO TID [facility] Last Admin: 12/11/18 20:36 Dose: 100 mg Documented by: Sodium Chloride (Nacl 0.9%) 100 mls @ 999 mls/hr IV LUIS PRN PRN Reason: Hypotension Sodium Chloride (Nacl 0.9% 1000 Ml) 1,000 mls @ 50 mls/hr IV DIRECT [facility] Last Admin: 12/11/18 09:31 Dose: 50 mls/hr Documented by: Insulin Human Lispro (Humalog) 0 unit SUB-Q ACHS [facility]; Protocol Last Admin: 12/11/18 22:08 Dose: 3 unit Documented by: Isosorbide Mononitrate (Monoket) 20 mg PO DAILY [facility] Last Admin: 12/11/18 13:00 Dose: Not Given Documented by: Metoclopramide HCl (Reglan) 10 mg IV Q6H PRN PRN Reason: Nausea And Vomiting Last Admin: 12/11/18 14:19 Dose: 10 mg Documented by: Oxycodone/Acetaminophen (Percocet 5/325) 2 tab PO Q6H PRN PRN Reason: Pain, Moderate (4-6) Last Admin: 12/11/18 22:09 Dose: 2 tab Documented by: Pantoprazole Sodium (Protonix) 40 mg PO QDAY [facility] Last Admin: 12/11/18 13:11 Dose: Not Given Documented by: Promethazine HCl (Phenergan) 25 mg [place] Q6H PRN PRN Reason: Nausea And Vomiting Review of Systems Constitutional: no weight loss, no weight gain, no fever, no sweats Breasts: deferred Cardiovascular: no chest pain, no orthopnea, no palpitations, no edema, no syncope Respiratory: no cough, no shortness of breath, no dyspnea on exertion Gastrointestinal: abdominal pain, nausea, vomiting Genitourinary Female: no pelvic pain, no flank pain Rectal: no pain, no bleeding Musculoskeletal: no neck stiffness, no neck pain Integumentary: no rash, no pruritis Neurological: no paralysis, no weakness Psychiatric: no memory loss, no sleep disturbances Endocrine: no cold intolerance, no heat intolerance Hematologic/Lymphatic: no easy bruising, no easy bleeding Allergic/Immunologic: no urticaria Physical Examination Vital Signs Pulse Ox 96 12/10/18 08:09 General appearance: no acute distress HEENT: Positive: PERRL, EOMI Neck: Positive: neck supple, trachea midline Cardiac: Positive: Reg Rate and Rhythm. Negative: Audible Murmur Lungs: Positive: Normal Exam Neuro: Positive: Grossly Intact Abdomen: Positive: Active Bowel Sounds Female genitourinary: deferred Skin: Positive: Clear. Negative: Rash Extremities: Present: normal, Other (right foot amputation). Absent: edema Results 12/10/18 08:11 12/12/18 05:09 Comprehensive Metabolic Panel 12/11/18 12/11/18 12/12/18 Range/Units 11:05 11:10 05:09 Sodium 137 139 (137-145) mmol/L Potassium 5.1 H 5.2 H 5.5 H (3.6-5.0) mmol/L Chloride 98.4 100.5 (98-107) mmol/L Carbon Dioxide 28 25 (22-30) mmol/L BUN 13 19 H (7-17) mg/dL Creatinine 4.9 H 6.3 H (0.7-1.2) mg/dL Glucose 97 88 (65-100) mg/dL Calcium 8.2 L 8.0 L (8.4-10.2) mg/dL - Imaging and Cardiology Stress echo: report reviewed (MPI 08/29/18: No ischemia, EF 44%) Echo: report reviewed (ECHO 08/18: EF 50-55%, grade I diastolic dysfunction, mild to mod LVH) EKG interpretations - Telemetry EKG Rhythm: Sinus Rhythm Assessment and Plan 48-year-old female Intractable nausea/vomiting/epigastric pain Accelerated hypertension Atypical chest pain Currently the patient is chest pain-free and resting. No evidence ACS Elevated troponin in the setting of chronic kidney disease No further studies recommended at this time Hypertension End-stage renal disease Diabetes/blindness Asthma Echocardiogram August 2018 with normal left ventricular function and grade 1 diastolic dysfunction with mild to moderate LVH Myocardial perfusion scan from August 2018 revealed no significant ischemia.
--- NOTE | 2018-12-12 10:46 | Progress Note ---
Subjective Principal diagnosis: esrd Interval history: Patient was seen today for follow-up on multiple renal related issues Events of this hospitalization noted Patient denies having any chest pain pressure or shortness of breath Vitals labs intake output medications were reviewed Social history: Reviewed Allergies: Reviewed Family history: Reviewed Physical examination HEENT: Oral mucosa moist no pallor or icterus Neck: Supple no JVD Chest: Clear to auscultation anteriorly CVS: Regular rate and rhythm S1 and S2 heard Abdomen: Soft nontender no suprapubic masses no organomegaly appreciable Extremity: Dry skin less than 1+ peripheral edema Musculoskeletal: No joint effusion noted in knees and ankle Neurological: Alert awake Dermatology: No petechial rashes Psychiatry: No evidence of any agitation and aggression noted Assessment and plan End-stage renal disease: Patient will continue with hemodialysis, monitor dialysis related labs she will continue with hemodialysis on Friday schedule outpatient dialysis facility is at [facility] Hyperkalemia: Continue with hemodialysis improve compliance, prognosis very poor Treatment time will need to be increased by 30 minutes abnormal troponin currently being followed by cardiology Issues with uncontrolled hypertension patient is not a reliable candidate for TERESA inhibitor or angiotensin receptor kylie kindly avoid risk is more than benefit We'll consider adding minoxidil 5 mg daily Increase clonidine to 0.4/discontinue hydralazine for now Patient has issues with chronic noncompliance she was counseled and educated Anemia in end-stage renal disease: Monitor hemoglobin and hematocrit, erythropoietin as needed Secondary hyperparathyroidism periodically check phosphorus and PTH level Hypertension and volume: , Adjust medications as needed, ultrafiltration as tolerated keep systolic blood pressure above 100 Malnutrition risk: High please consider high protein diet as well as nutrition follow-up, patient needs at least 1.5 g protein per KG body weight Patient was adequately counseled and educated regarding multiple renal related issues Pertinent lab findings were discussed with patient, patient does exhibit good understanding of renal issues We'll continue to follow and make recommendation from renal standpoint Objective - Vital Signs Vital signs: Vital Signs - 12hr 12/11/18 12/12/18 12/12/18 23:33 03:42 07:55 Temperature 98.1 F 98.3 F 98.3 F Pulse Rate 93 H 79 89 Respiratory 18 16 16 Rate Blood Pressure 179/80 168/84 202/101 O2 Sat by Pulse 95 97 Oximetry 04/13/19 04/13/19 04/13/19 08:10 08:30 08:45 Temperature Pulse Rate 82 86 89 Respiratory Rate Blood Pressure 210/111 195/103 204/103 O2 Sat by Pulse Oximetry 12/12/18 12/12/18 09:00 09:15 Temperature Pulse Rate 94 H 85 Respiratory Rate Blood Pressure 196/103 182/90 O2 Sat by Pulse Oximetry - Lab 12/10/18 08:11 12/12/18 05:09 Most recent lab results Calcium 8.0 mg/dL (8.4-10.2) L 12/12/18 05:09 Medications & Allergies - Medications Allergies/Adverse Reactions: Allergies acetaminophen [From Lortab] Allergy (Verified 11/03/18 16:59) Unknown amoxicillin Allergy (Verified 07/03/18 20:57) Unknown hydrocodone [From Lortab] Allergy (Verified 11/03/18 16:59) Unknown Penicillins Allergy (Verified 05/19/18 13:02) Unknown tramadol Allergy (Verified 07/03/18 20:57) Unknown IV contrast Allergy (Uncoded 01/15/17 17:55) Rash Home Medications: Home Medications Medication Instructions Recorded Confirmed Last Taken Type AtorvaSTATin [Lipitor] 40 mg PO DAILY #30 tablet 12/03/18 12/10/18 Unknown Rx Dicyclomine [Bentyl] 10 mg PO QID PRN #30 capsule 12/03/18 12/10/18 Unknown Rx ISOSORBIDE MONOnitrate [Monoket] 20 mg PO DAILY #30 tablet 12/03/18 12/10/18 Unknown Rx Ondansetron [Zofran ODT TAB] 4 mg PO Q8HR #30 tab.rapdis 12/03/18 12/10/18 Unknown Rx amLODIPine [Norvasc] 10 mg PO DAILY #30 tablet 12/03/18 12/10/18 Unknown Rx cloNIDine-TTS PATCH [Catapres-Tts 1 patch TD Q7D #4 patch 12/03/18 12/10/18 Unknown Rx Patch] hydrALAZINE [Apresoline TAB] 100 mg PO TID #90 tab 12/03/18 12/10/18 Unknown Rx Active Medications: Generic Name Dose Route Start Last Admin Trade Name Freq PRN Reason Stop Dose Admin Amlodipine Besylate 10 mg 12/11/18 13:00 12/11/18 13:10 Norvasc PO Not Given DAILY RADHA Atorvastatin Calcium 40 mg 12/11/18 12:45 12/11/18 13:33 Lipitor PO Not Given DAILY [facility] Clonidine HCl 0.4 mg 12/17/18 12:00 Catapres-Tts Patch TD Th [facility] Dextrose 50 ml 12/10/18 11:03 D50w (25gm) Syringe IV PRN PRN Hypoglycemia Dicyclomine HCl 10 mg 12/11/18 12:26 Bentyl PO QID PRN Pain, Mild (1-3) Hydralazine HCl 20 mg 12/10/18 11:05 12/12/18 00:55 Apresoline IV 20 mg Q4H PRN Administration Hypertension Sodium Chloride 100 mls @ 999 mls/hr 12/10/18 11:05 Nacl 0.9% IV LUIS PRN Hypotension Sodium Chloride 1,000 mls @ 50 mls/hr 12/11/18 09:00 12/11/18 09:31 Nacl 0.9% 1000 Ml IV 50 mls/hr DIRECT RADHA Administration Insulin Human Lispro 0 unit 12/10/18 11:30 12/11/18 22:08 Humalog SUB-Q 3 unit ACHS [facility] Administration Protocol Isosorbide Mononitrate 20 mg 12/11/18 13:00 12/11/18 13:00 Monoket PO Not Given DAILY [facility] Metoclopramide HCl 10 mg 12/10/18 11:23 12/11/18 14:19 Reglan IV 10 mg Q6H PRN Administration Nausea And Vomiting Minoxidil 5 mg 12/13/18 10:00 Loniten PO QDAY [facility] Oxycodone/Acetaminophen 2 tab 12/11/18 12:27 12/11/18 22:09 Percocet 5/325 PO 2 tab Q6H PRN Administration Pain, Moderate (4-6) Pantoprazole Sodium 40 mg 12/11/18 10:00 12/11/18 13:11 Protonix PO Not Given QDAY [facility] Promethazine HCl 25 mg 12/10/18 11:23 Phenergan ID Q6H PRN Nausea And Vomiting
[2018-12-12] MEDS ORDERED: LONITEN PO ONE (11:00)
--- NOTE | 2018-12-12 11:29 | Progress Note ---
Assessment and Plan Assessment and plan: Acute respiratory failure due to fluid overload, ESRD on hemodialysis - getting better after HD - Nephrology is following - Chest x-ray showed mild pulmonary congestion Epigastric pain - Patient on pantoprazole - EGD was done and showed gastritis Chest pain with elevated cardiac enzymes - cardiology consulted and recommended no further cardiac workup Hypertensive urgency -Resume home on antihypertensives -Nephrology discontinue hydralazine and start patient on minoxidil - BP is still uncontrolled Diabetes mellitus - Sliding scale insulin DVT prophylaxis - Heparin Disposition - continue inpatient care History Interval history: Patient was seen and evaluated this morning, patient was complaining intermittent abdominal pain and chest pain. Hospitalist Physical - Physical exam Narrative exam: In distress from pain. The patient appeared well nourished and normally developed. Vital signs as documented. Head exam is unremarkable. No scleral icterus . Neck is without jugular venous distension, thyromegaly, or carotid bruits. Lungs are clear to auscultation. Cardiac exam reveals regular rate and Rhythm. Abdominal exam reveals normal bowel sounds. Extremities right foot amputation. [employer]: Alert and oriented 3. No focal weakness. - Constitutional Vitals: Temp Pulse Resp BP Pulse Ox 98.3 F 85 16 182/90 97 12/12/18 07:55 12/12/18 09:15 12/12/18 07:55 12/12/18 09:15 12/12/18 03:42 General appearance: Present: no acute distress Results - Labs CBC & Chem 7: 12/10/18 08:11 12/12/18 05:09 Labs: Laboratory Last Values WBC 9.3 K/mm3 (4.5-11.0) 12/10/18 08:11 RBC 3.15 M/mm3 (3.65-5.03) L 12/10/18 08:11 Hgb 8.8 gm/dl (10.1-14.3) L 12/10/18 08:11 Hct 26.8 % (30.3-42.9) L 12/10/18 08:11 MCV 85 fl (79-97) 12/10/18 08:11 MCH 28 pg (28-32) 12/10/18 08:11 MCHC 33 % (30-34) 12/10/18 08:11 RDW 16.2 % (13.2-15.2) H 12/10/18 08:11 Plt Count 204 K/mm3 (140-440) 12/10/18 08:11 Lymph % (Auto) 10.5 % (13.4-35.0) L 12/10/18 08:11 Bryan % (Auto) 9.7 % (0.0-7.3) H 12/10/18 08:11 Eos % (Auto) 1.3 % (0.0-4.3) 12/10/18 08:11 Baso % (Auto) 0.8 % (0.0-1.8) 12/10/18 08:11 Lymph # 1.0 K/mm3 (1.2-5.4) L 12/10/18 08:11 Bryan # 0.9 K/mm3 (0.0-0.8) H 12/10/18 08:11 Eos # 0.1 K/mm3 (0.0-0.4) 12/10/18 08:11 Baso # 0.1 K/mm3 (0.0-0.1) 12/10/18 08:11 Seg Neutrophils % 77.7 % (40.0-70.0) H 12/10/18 08:11 Seg Neutrophils # 7.2 K/mm3 (1.8-7.7) 12/10/18 08:11 Sodium 139 mmol/L (137-145) 12/12/18 05:09 Potassium 5.5 mmol/L (3.6-5.0) H 12/12/18 05:09 Chloride 100.5 mmol/L (98-107) 12/12/18 05:09 Carbon Dioxide 25 mmol/L (22-30) 12/12/18 05:09 Anion Gap 19 mmol/L 12/12/18 05:09 BUN 19 mg/dL (7-17) H 12/12/18 05:09 Creatinine 6.3 mg/dL (0.7-1.2) H 12/12/18 05:09 Estimated GFR 7 ml/min 12/12/18 05:09 BUN/Creatinine Ratio 3 % 12/12/18 05:09 Glucose 88 mg/dL (65-100) 12/12/18 05:09 POC Glucose 84 (70-105) 12/12/18 07:34 Calcium 8.0 mg/dL (8.4-10.2) L 12/12/18 05:09 Total Bilirubin 0.40 mg/dL (0.1-1.2) 12/10/18 08:07 AST 14 units/L (5-40) 12/10/18 08:07 ALT 6 units/L (7-56) L 12/10/18 08:07 Alkaline Phosphatase 74 units/L (35-129) 12/10/18 08:07 Troponin T 0.638 ng/mL (0.00-0.029) H* 12/10/18 14:20 Total Protein 6.3 g/dL (6.3-8.2) 12/10/18 08:07 Albumin 3.3 g/dL (3.9-5) L 12/10/18 08:07 Albumin/Globulin Ratio 1.1 % 12/10/18 08:07 Triglycerides 106 mg/dL (2-149) 12/10/18 14:20 Cholesterol 133 mg/dL (50-199) 12/10/18 14:20 LDL Cholesterol Direct 73 mg/dL (50-130) 12/10/18 14:20 HDL Cholesterol 46 mg/dL (40-59) 12/10/18 14:20 Cholesterol/HDL Ratio 2.89 % 12/10/18 14:20 Lipase 59 units/L (13-60) 12/10/18 08:07 Active Medications - Current Medications Current Medications: Generic Name Dose Route Start Last Admin Trade Name Freq PRN Reason Stop Dose Admin Amlodipine Besylate 10 mg 12/11/18 13:00 12/11/18 13:10 Norvasc PO Not Given DAILY [facility] Atorvastatin Calcium 40 mg 12/11/18 12:45 12/11/18 13:33 Lipitor PO Not Given DAILY [facility] Clonidine HCl 0.4 mg 12/12/18 12:00 Catapres-Tts Patch TD Sa [facility] Dextrose 50 ml 12/10/18 11:03 D50w (25gm) Syringe IV PRN PRN Hypoglycemia Dicyclomine HCl 10 mg 12/11/18 12:26 Bentyl PO QID PRN Pain, Mild (1-3) Hydralazine HCl 20 mg 12/10/18 11:05 12/12/18 00:55 Apresoline IV 20 mg Q4H PRN Administration Hypertension Sodium Chloride 100 mls @ 999 mls/hr 12/10/18 11:05 Nacl 0.9% IV LUIS PRN Hypotension Sodium Chloride 1,000 mls @ 50 mls/hr 12/11/18 09:00 12/11/18 09:31 Nacl 0.9% 1000 Ml IV 50 mls/hr DIRECT RAD[facility] Administration Insulin Human Lispro 0 unit 12/10/18 11:30 12/11/18 22:08 Humalog SUB-Q 3 unit ACHS [facility] Administration Protocol Isosorbide Mononitrate 20 mg 12/11/18 13:00 12/11/18 13:00 Monoket PO Not Given DAILY [facility] Metoclopramide HCl 10 mg 12/10/18 11:23 12/11/18 14:19 Reglan IV 10 mg Q6H PRN Administration Nausea And Vomiting Minoxidil 5 mg 12/13/18 10:00 Loniten PO QDAY [facility] Oxycodone/Acetaminophen 2 tab 12/11/18 12:27 12/11/18 22:09 Percocet 5/325 PO 2 tab Q6H PRN Administration Pain, Moderate (4-6) Pantoprazole Sodium 40 mg 12/11/18 10:00 12/11/18 13:11 Protonix PO Not Given QDAY [facility] Promethazine HCl 25 mg 12/10/18 11:23 Phenergan IA Q6H PRN Nausea And Vomiting Nutrition/Malnutrition Assess - Dietary Evaluation Nutrition/Malnutrition Findings: Nutrition Notes Start: 12/11/18 16:3 9 Freq: Status: Active Protocol: Document 12/11/18 16:40 RM (Rec: 12/11/18 16:40 RM [email or web address]) Nutrition Notes Need for Assessment generated from: manufacturing manager Initial or Follow up Brief Note Subjective/Other Information Screened for skin risk. Jaden 21 points. Nutrition Intervention Revisit per MD consult or patient Sign Off request:
[2018-12-12] MEDS ORDERED: CATAPRES-TTS PATCH TD SCH (12:00)
[2018-12-12] MEDS: HumaLOG SUB-Q SCH ×3 (12:39→21:10)
[2018-12-12] MEDS: NORVASC PO SCH (12:49)
[2018-12-12] MEDS: PROTONIX PO SCH (12:51)
[2018-12-12] MEDS: MONOKET PO SCH (12:51)
[2018-12-12] MEDS: PERCOCET 5/325 PO PRN (16:52)
[2018-12-12] MEDS: APRESOLINE PO SCH (19:35)
[2018-12-13] MEDS: PERCOCET 5/325 PO PRN ×2 (05:58)
[2018-12-13 08:14] LABS: Calcium 7.5 mg/dL (8.4-10.2)
[2018-12-13] MEDS: HumaLOG SUB-Q SCH ×2 (08:14→12:36)
--- NOTE | 2018-12-13 08:47 | Progress Note ---
Subjective Date of service: 12/13/18 Principal diagnosis: esrd Interval history: Patient seen at her room with nurse Maggie Sawyer. Patiet was resting in bed and did not appear to be in any significant distress. States that her abdominal is still persisting but is improved compared to before, and would like for her diet to be advanced to a regular diet. O/E HEENT: No JVD Resoiratory System: Lungs clear CVS: Grossly normal Abdomen: Slightly tender, bowel sounds present TEMPLATE CLERK: Normal, vision impaired A/P: Abdominal Pain (improving)/ Moderate,Distal Erosive Esophagitis. Gastritis/ ESRD: Continue with present treatment from a GI standpoint. Will advance to a Regular Diet. Objective - Constitutional Vitals: Vital Signs - 12hr 12/12/18 12/12/18 12/13/18 22:55 23:53 04:18 Temperature 98.4 F 98.2 F Pulse Rate 91 H 91 H 99 H Respiratory 18 18 Rate Blood Pressure 119/60 143/62 O2 Sat by Pulse 98 99 Oximetry - Labs CBC & Chem 7: 12/10/18 08:11 12/13/18 07:04 Labs: Abnormal lab results 12/12/18 12/13/18 Range/Units 21:05 07:04 Creatinine 5.0 H (0.7-1.2) mg/dL Glucose 102 H (65-100) mg/dL POC Glucose 124 H (70-105) Calcium 7.5 L (8.4-10.2) mg/dL Medications & Allergies - Medications Allergies/Adverse Reactions: Allergies acetaminophen [From Lortab] Allergy (Verified 11/03/18 16:59) Unknown amoxicillin Allergy (Verified 07/03/18 20:57) Unknown hydrocodone [From Lortab] Allergy (Verified 11/03/18 16:59) Unknown Penicillins Allergy (Verified 05/19/18 13:02) Unknown tramadol Allergy (Verified 07/03/18 20:57) Unknown IV contrast Allergy (Uncoded 01/15/17 17:55) Rash Home Medications: Home Medications Medication Instructions Recorded Confirmed Last Taken Type AtorvaSTATin [Lipitor] 40 mg PO DAILY #30 tablet 12/03/18 12/10/18 Unknown Rx Dicyclomine [Bentyl] 10 mg PO QID PRN #30 capsule 12/03/18 12/10/18 Unknown Rx ISOSORBIDE MONOnitrate [Monoket] 20 mg PO DAILY #30 tablet 12/03/18 12/10/18 Unknown Rx Ondansetron [Zofran ODT TAB] 4 mg PO Q8HR #30 tab.rapdis 12/03/18 12/10/18 Unknown Rx amLODIPine [Norvasc] 10 mg PO DAILY #30 tablet 12/03/18 12/10/18 Unknown Rx cloNIDine-TTS PATCH [Catapres-Tts 1 patch TD Q7D #4 patch 12/03/18 12/10/18 Unknown Rx Patch] hydrALAZINE [Apresoline TAB] 100 mg PO TID #90 tab 12/03/18 12/10/18 Unknown Rx Active Medications: Generic Name Dose Route Start Last Admin Trade Name Freq PRN Reason Stop Dose Admin Amlodipine Besylate 10 mg 12/11/18 13:00 12/12/18 12:49 Norvasc PO 10 mg DAILY RAD[facility] Administration Atorvastatin Calcium 40 mg 12/11/18 12:45 12/12/18 12:51 Lipitor PO 40 mg DAILY [facility] Administration Clonidine HCl 0.4 mg 12/12/18 12:00 12/12/18 12:50 Catapres-Tts Patch TD 0.4 mg Sa RADHA Administration Dextrose 50 ml 12/10/18 11:03 D50w (25gm) Syringe IV PRN PRN Hypoglycemia Dicyclomine HCl 10 mg 12/11/18 12:26 Bentyl PO QID PRN Pain, Mild (1-3) Hydralazine HCl 20 mg 12/10/18 11:05 12/12/18 00:55 Apresoline IV 20 mg Q4H PRN Administration Hypertension Sodium Chloride 100 mls @ 999 mls/hr 12/10/18 11:05 Nacl 0.9% IV LUIS PRN Hypotension Sodium Chloride 1,000 mls @ 50 mls/hr 12/11/18 09:00 12/11/18 09:31 Nacl 0.9% 1000 Ml IV 50 mls/hr DIRECT RAD[facility] Administration Insulin Human Lispro 0 unit 12/10/18 11:30 12/13/18 08:14 Humalog SUB-Q Not Given ACHS [facility] Protocol Isosorbide Mononitrate 20 mg 12/11/18 13:00 12/12/18 12:51 Monoket PO 20 mg DAILY [facility] Administration Metoclopramide HCl 10 mg 12/10/18 11:23 12/11/18 14:19 Reglan IV 10 mg Q6H PRN Administration Nausea And Vomiting Minoxidil 5 mg 12/13/18 10:00 Loniten PO QDAY REPLACED BY [facility] Oxycodone/Acetaminophen 2 tab 12/11/18 12:27 12/13/18 05:58 Percocet 5/325 PO 2 tab Q6H PRN Administration Pain, Moderate (4-6) Pantoprazole Sodium 40 mg 12/11/18 10:00 12/12/18 12:51 Protonix PO 40 mg QDAY REPLACED [facility] Administration Promethazine HCl 25 mg 12/10/18 11:23 Phenergan FL Q6H PRN Nausea And Vomiting
[2018-12-13] MEDS ORDERED: LONITEN PO SCH (10:00)
[2018-12-13] MEDS: NORVASC PO SCH (10:06)
[2018-12-13] MEDS: MONOKET PO SCH (10:06)
[2018-12-13] MEDS: PROTONIX PO SCH (10:07)
[2018-12-13] MEDS: REGLAN IV PRN (10:23)
[2018-12-13 12:07] VITALS: BP 122/60
--- NOTE | 2018-12-13 15:15 | Discharge Summary ---
Providers - Providers Date of Admission: 12/10/18 10:35 Date of discharge: 12/13/18 Attending physician: CHELY COHEN 12/10/18 10:35 Consult to Physician [CONS] Stat Comment: DR RONALDO HA W/DR GARCIA @1027 Consulting Provider: NELY GARCIA Physician Instructions: Reason For Exam: ESRD 12/10/18 11:20 Consult to Physician [CONS] Routine Comment: Consulting Provider: OSMAR NEVAREZ Physician Instructions: Reason For Exam: epigastric pain 12/11/18 12:25 Consult to Physician [CONS] Routine Comment: Consulting Provider: JOSE MARTIN NUNES Physician Instructions: Reason For Exam: chest pain and elevated troponin [facility] Reason for admission: Acute respiratory failure due to fluid overload, Uncontrolled HTN Condition: Stable Pertinent studies: Chest x-ray Procedures: EGD Hospital course: Final discharge diagnoses: -Acute hypoxic respiratory failure due to fluid overload -ESRD on hemodialysis -Epigastric pain 2/2 erosive esophagitis and gastritis -Chest pain with elevated troponin level, likely secondary to demand ischemia due to ESRD -Hypertensive urgency, improved -Diabetes mellitus type 2 Hospital course: On admission, patient underwent hemodialysis. She also received antihypertensives for blood pressure control. For the elevated troponin level, cardiology was consulted however no further investigative testing was recommended. Thereafter, she underwent EGD for epigastric pain which showed gastritis. She was started on Protonix. At some point, patient's antihypertensive had to be adjusted by the nephrology for better blood pressure control. Her hydralazine was discontinued and she was started on Minoxidil. Subsequently, she improved clinically and she was then deemed stable for discharge after clearance by sub-specialty physicians consulted. Disposition: DC-30 STILL A PATIENT Time spent for discharge: 35 minutes Core Measure Documentation - Palliative Care Palliative Care/ Comfort Measures: Not Applicable - Core Measures Any of the following diagnoses?: none Exam - Constitutional Vitals: Temp Pulse Resp BP Pulse Ox 98.2 F 89 18 122/60 99 12/13/18 12:06 12/13/18 12:06 12/13/18 12:06 12/13/18 12:06 12/13/18 11:00 General appearance: Present: no acute distress, well-nourished - EENT Eyes: Present: PERRL, EOM intact ENT: hearing intact, clear oral mucosa - Neck Neck: Present: supple, normal ROM - Respiratory Respiratory effort: normal Respiratory: bilateral: CTA - Cardiovascular Rhythm: regular Heart Sounds: Present: S1 & S2. Absent: rub, click - Extremities Extremities: No edema Peripheral Pulses: within normal limits - Abdominal General gastrointestinal: Present: soft, non-tender, non-distended, normal bowel sounds Female genitourinary: Present: normal - Integumentary Integumentary: Present: clear, warm, dry - Musculoskeletal Musculoskeletal: gait normal, strength equal bilaterally - Psychiatric Psychiatric: appropriate mood/affect, intact judgment & insight - Neurologic Neurologic: CNII-XII intact, moves all extremities Plan Follow up with: KD BARROW MD [Primary Care Provider] - 3-5 Days Prescriptions: Minoxidil [Loniten] 5 mg PO QDAY #60 tablet Pantoprazole [Protonix] 40 mg PO QDAY #30 tablet
[2018-12-17] MEDS ORDERED: CATAPRES-TTS PATCH TD SCH (12:00)
== END 2018-12-13 16:02 | disposition hospice, home (50) | DRG 380 ==
LOC: ED 07:48 → 4A 10:35
PROVIDERS: ADMIT Internal Medicine; ATTEND Internal Medicine
PROC: 5A1D70Z Performance of Urinary Filtration, Intermittent, Less than 6 Hours Per Day (ICD-10-PCS; 2018-12-10)
PROC: 0DB78ZX Excision of Stomach, Pylorus, Via Natural or Artificial Opening Endoscopic, Diagnostic (ICD-10-PCS; principal; 2018-12-11)
PROC: 5A1D70Z Performance of Urinary Filtration, Intermittent, Less than 6 Hours Per Day (ICD-10-PCS; 2018-12-12)
DX: K22.10 Ulcer of esophagus without bleeding (principal); J96.01 Acute respiratory failure with hypoxia; N18.6 End stage renal disease; I12.0 Hypertensive chronic kidney disease with stage 5 chronic kidney disease or end stage renal disease; N25.81 Secondary hyperparathyroidism of renal origin; E11.22 Type 2 diabetes mellitus with diabetic chronic kidney disease; E87.5 Hyperkalemia; I16.0 Hypertensive urgency; E87.70 Fluid overload, unspecified; K29.70 Gastritis, unspecified, without bleeding; D63.1 Anemia in chronic kidney disease; K52.9 Noninfective gastroenteritis and colitis, unspecified; H54.8 Legal blindness, as defined in USA; J45.909 Unspecified asthma, uncomplicated; L40.9 Psoriasis, unspecified; E11.40 Type 2 diabetes mellitus with diabetic neuropathy, unspecified; Z88.1 Allergy status to other antibiotic agents; Z88.0 Allergy status to penicillin; Z91.19 Patient's noncompliance with other medical treatment and regimen; Z88.5 Allergy status to narcotic agent; Z91.041 Radiographic dye allergy status; Z79.899 Other long term (current) drug therapy; Z86.73 Personal history of transient ischemic attack (TIA), and cerebral infarction without residual deficits; Z87.442 Personal history of urinary calculi
CPT/HCPCS: 36415; 71045; 80048; 80053; 80061; 82962; 83690; 84132; 84484; 85025; 88305; 88342; 93005; 93010; G0378; A9270-GY; C9113; J0360; J1200; J1815; J2270; J2405; J2704; J2765

== ENCOUNTER 2018-12-22 21:50 | Inpatient (IN) | payer MEDICARE ==
[2018-12-22] MEDS ORDERED: APRESOLINE IV ONE (22:00)
[2018-12-22] MEDS ORDERED: ZOFRAN IV ONE (22:00)
--- NOTE | 2018-12-22 22:04 | Emergency Department Report ---
ED General Adult HPI - General Stated complaint: HYPERTENSION,DIZZINESS,VOMITING Time Seen by Provider: 12/22/18 21:58 - History of Present Illness Initial comments: Patient is 48 years old female with history of end-stage renal disease on hemodialysis. Last dialysis was Friday. Patient did not go for dialysis today because of the nausea and vomiting. Patient also had history of hypertension. Patient brought to the emergency room today for significantly elevated blood pressure of 236/152. Patient stated that she is unable to keep her blood pressure medication down because of the vomiting. She denied any chest pain, headache, neck pain, weakness numbness or tingling sensation. - Related Data Previous Rx's Medication Instructions Recorded Last Taken Type AtorvaSTATin [Lipitor] 40 mg PO DAILY #30 tablet 12/03/18 Unknown Rx Dicyclomine [Bentyl] 10 mg PO QID PRN #30 capsule 12/03/18 Unknown Rx ISOSORBIDE MONOnitrate [Monoket] 20 mg PO DAILY #30 tablet 12/03/18 Unknown Rx Ondansetron [Zofran ODT TAB] 4 mg PO Q8HR #30 tab.rapdis 12/03/18 Unknown Rx amLODIPine [Norvasc] 10 mg PO DAILY #30 tablet 12/03/18 Unknown Rx cloNIDine-TTS PATCH [Catapres-Tts 1 patch TD Q7D #4 patch 12/03/18 Unknown Rx Patch] Minoxidil [Loniten] 5 mg PO QDAY #60 tablet 12/13/18 Unknown Rx Pantoprazole [Protonix] 40 mg PO QDAY #30 tablet 12/13/18 Unknown Rx Allergies Allergy/AdvReac Type Severity Reaction Status Date / Time acetaminophen [From Lortab] Allergy Unknown Verified 11/03/18 16:59 amoxicillin Allergy Unknown Verified 07/03/18 20:57 hydrocodone [From Lortab] Allergy Unknown Verified 11/03/18 16:59 Penicillins Allergy Unknown Verified 05/19/18 13:02 tramadol Allergy Unknown Verified 07/03/18 20:57 IV contrast Allergy Rash Uncoded 01/15/17 17:55 ED Review of Systems ROS: Stated complaint: HYPERTENSION,DIZZINESS,VOMITING Other details as noted in HPI Comment: All other systems reviewed and negative Constitutional: denies: chills, fever Respiratory: shortness of breath. denies: cough, orthopnea, SOB with exertion, SOB at rest, wheezing Cardiovascular: denies: chest pain, palpitations Gastrointestinal: nausea, vomiting. denies: abdominal pain, diarrhea, constipation, hematemesis, melena, hematochezia Musculoskeletal: denies: back pain Neurological: denies: headache, weakness, numbness, paresthesias, confusion ED Past Medical Hx - Past Medical History Hx Hypertension: Yes Hx CVA: Yes Hx Heart Attack/AMI: No Hx Congestive Heart Failure: No Hx Diabetes: Yes Hx Deep Vein Thrombosis: No Hx Pulmonary Embolism: No Hx Liver Disease: No Hx Renal Disease: Yes Hx Kidney Stones: Yes Hx Asthma: Yes Hx COPD: No Hx Tuberculosis: No Hx HIV: No Additional medical history: psorasis. NEUROPATHY. FIBROIDS. DIALYSIS MWF - Surgical History Hx Coronary Stent: No Hx Pacemaker: No Hx Internal Defibrillator: No Additional Surgical History: X 1 , Hx. left wrist surgery 2 toes amputated r) foot. partial right foot amputation - Social History Smoking Status: Never Smoker - Medications Home Medications: Home Medications Medication Instructions Recorded Confirmed Last Taken Type AtorvaSTATin [Lipitor] 40 mg PO DAILY #30 tablet 12/03/18 12/10/18 Unknown Rx Dicyclomine [Bentyl] 10 mg PO QID PRN #30 capsule 12/03/18 12/10/18 Unknown Rx ISOSORBIDE MONOnitrate [Monoket] 20 mg PO DAILY #30 tablet 12/03/18 12/10/18 Unknown Rx Ondansetron [Zofran ODT TAB] 4 mg PO Q8HR #30 tab.rapdis 12/03/18 12/10/18 Unknown Rx amLODIPine [Norvasc] 10 mg PO DAILY #30 tablet 12/03/18 12/10/18 Unknown Rx cloNIDine-TTS PATCH [Catapres-Tts 1 patch TD Q7D #4 patch 12/03/18 12/10/18 Unknown Rx Patch] Minoxidil [Loniten] 5 mg PO QDAY #60 tablet 12/13/18 Unknown Rx Pantoprazole [Protonix] 40 mg PO QDAY #30 tablet 12/13/18 Unknown Rx ED Physical Exam - General General appearance: alert, in no apparent distress - Head Head exam: Present: atraumatic, normocephalic, normal inspection - Eye Eye exam: Present: normal appearance, PERRL - ENT ENT exam: Present: normal exam, normal orophraynx, mucous membranes moist - Neck Neck exam: Present: normal inspection, full ROM. Absent: tenderness, meningismus, lymphadenopathy, thyromegaly - Respiratory Respiratory exam: Present: normal lung sounds bilaterally - Cardiovascular Cardiovascular Exam: Present: regular rate, normal rhythm, normal heart sounds - GI/Abdominal GI/Abdominal exam: Present: soft, normal bowel sounds. Absent: distended, tenderness, guarding, rebound, rigid, mass, bruit, pulsatile mass, hernia - Extremities Exam Extremities exam: Present: normal inspection, full ROM, normal capillary refill. Absent: pedal edema, calf tenderness - Back Exam Back exam: Present: normal inspection, full ROM. Absent: tenderness, CVA tenderness (R), CVA tenderness (L), muscle spasm, paraspinal tenderness, vertebral tenderness - Neurological Exam Neurological exam: Present: alert, oriented X3, CN II-XII intact, normal gait, reflexes normal - Skin Skin exam: Present: warm, intact, normal color ED Course Vital Signs 12/22/18 12/22/18 12/22/18 21:56 22:00 22:06 Temperature 97.9 F Pulse Rate 81 75 Respiratory 17 19 18 Rate Blood Pressure 216/95 Blood Pressure [Left] O2 Sat by Pulse 95 96 97 Oximetry 12/22/18 12/22/18 12/22/18 22:08 22:16 22:30 Temperature Pulse Rate 68 69 63 Respiratory 17 11 L Rate Blood Pressure 228/96 228/96 Blood Pressure [Left] O2 Sat by Pulse 95 97 Oximetry 12/22/18 12/22/18 12/22/18 22:39 22:46 23:00 Temperature Pulse Rate 64 77 Respiratory 17 17 Rate Blood Pressure 182/82 Blood Pressure 202/82 [Left] O2 Sat by Pulse 97 99 Oximetry ED Medical Decision Making - Lab Data Result diagrams: 12/22/18 22:06 12/22/18 22:06 - EKG Data -: EKG Interpreted by Me EKG shows normal: sinus rhythm Rate: normal - EKG Data Interpretation: no acute changes - Radiology Data Radiology results: report reviewed - Medical Decision Making Patient is 48 years old female with history of end-stage renal disease on hemodialysis. Last dialysis was Friday. Patient did not go for dialysis today because of the nausea and vomiting. Patient also had history of hypertension. Patient brought to the emergency room today for significantly elevated blood pressure of 236/152. Patient stated that she is unable to keep her blood pressure medication down because of the vomiting. She denied any chest pain, headache, neck pain, weakness numbness or tingling sensation. Patient found to have a potassium of 8.7. Patient immediately received calcium chloride 1 g, albuterol, biggest was 50 and 10 units of regular insulin. I discussed the patient is Dr. Castillo. She stated that she will called for immediate dialysis. I discussed the patient is Dr. Quintanilla, he agreed to admit the patient to medical service. Critical Care Time: Yes Critical care attestation.: If time is entered above; I have spent that time in minutes in the direct care of this critically ill patient, excluding procedure time. ED Disposition Clinical Impression: Intractable nausea and vomiting, Noncompliance with renal dialysis, ESRD (end stage renal disease) on dialysis, Acute hyperkalemia Disposition: OP ADMIT IP TO THIS HOSP Is pt being admited?: Yes Condition: Stable
[2018-12-22 22:35] LABS: Basophils # (Auto) 0.1 K/mm3 (0.0-0.1); Basophils % (Auto) 1.1 % (0.0-1.8); Eosinophils # (Auto) 0.1 K/mm3 (0.0-0.4); Eosinophils % (Auto) 1.8 % (0.0-4.3); Hematocrit 26.7 % (30.3-42.9); Hemoglobin 8.8 gm/dl (10.1-14.3); Lymphocytes # (Auto) 0.8 K/mm3 (1.2-5.4); Lymphocytes % (Auto) 10.9 % (13.4-35.0); Mean Corpuscular HGB Conc 33 % (30-34); Mean Corpuscular Volume 88 fl (79-97); Monocytes # (Auto) 0.5 K/mm3 (0.0-0.8); Platelet Count 204 K/mm3 (140-440); Red Blood Count 3.02 M/mm3 (3.65-5.03); Red Cell Distribution Width 16.8 % (13.2-15.2)
[2018-12-22 22:54] LABS: Calcium 8.7 mg/dL (8.4-10.2); INR 1.19 (0.87-1.13)
[2018-12-22 22:55] LABS: Partial Thromboplastin Time 37.1 Sec. (24.2-36.6)
[2018-12-22] MEDS ORDERED: CALCIUM CHLORIDE 1,000 MG in NACL 0.9% 100 ML IV ONE (23:05)
[2018-12-22] MEDS ORDERED: PROVENTIL IH ONE (23:05)
[2018-12-22] MEDS ORDERED: HumuLIN R IV ONE (23:05)
[2018-12-22] MEDS ORDERED: D50W (25GM) Syringe IV ONE (23:05)
--- NOTE | 2018-12-22 23:12 | XRay Report ---
PROCEDURE: XR CHEST 1V AP TECHNIQUE: Chest radiograph single view. HISTORY: Dyspnea COMPARISONS: 12/10/2018 . FINDINGS: Heart: The heart size is slightly pronounced but stable. Mediastinum/Vessels: Normal. Lungs/Pleural space: There is diminished vascular congestion with significantly diminished atelectas is and effusion right lower lung.. Bony thorax: No acute osseous abnormality. Life support devices: Right central catheter ends in the SVC. IMPRESSION: There is diminished vascular congestion with significantly diminished atelectasis and ef fusion in the right lower lung. Mild stable cardiomegaly. Right central catheter is properly position ed.. This document is electronically signed by Maritza Wagner DO., December 22 2018 11:10:22 PM ET
[2018-12-22] MEDS ORDERED: NACL 0.9% 100 ML IV PRN (23:13)
[2018-12-22] MEDS ORDERED: REGLAN ONE (23:37)
[2018-12-22] MEDS ORDERED: REGLAN IV ONE (23:39)
[2018-12-23] MEDS ORDERED: NORMODYNE IV ONE (02:41)
[2018-12-23] MEDS ORDERED: MORPHINE IV ONE (02:47)
[2018-12-23] MEDS ORDERED: ZOFRAN IV PRN ×2 (02:47→02:54)
[2018-12-23] MEDS ORDERED: D50W (25GM) Syringe IV PRN (03:00)
[2018-12-23] MEDS ORDERED: BENTYL PO PRN (03:26)
[2018-12-23] MEDS: APRESOLINE IV PRN ×4 (04:19→20:23)
--- NOTE | 2018-12-23 04:46 | History and Physical Report ---
CHIEF COMPLAINT: Nausea and vomiting. HISTORY OF PRESENT ILLNESS: The patient is a 48-year-old female, who has a past history of end-stage renal disease, on dialysis. The patient had last dialysis from Friday and missed the dialysis on 12/22/2018 because of nausea and vomiting and the patient noted a very high blood pressure prior to coming to the Emergency Room of value of 236/152. The patient admitted to not being able to keep her blood pressure medication down because of nausea or vomiting. There is no history of chest pain. No history of headache, blurry vision, or shortness of breath. PAST MEDICAL HISTORY: Pertinent for hypertension, cerebrovascular accident, diabetes mellitus, end-stage renal disease, on dialysis, kidney stones, asthma. Also, the patient has past medical history of psoriasis, neuropathy, fibroid. PAST SURGICAL HISTORY: Pertinent for , left wrist surgery, two toe amputation of the right foot, partial right foot amputation. FAMILY HISTORY: Noncontributory. SOCIAL HISTORY: The patient does not smoke, does not drink alcohol and does not use illicit drugs. MEDICATIONS: The patient is on Lipitor 40 mg by mouth daily, Bentyl or dicyclomine 10 mg by mouth q.i.d., isosorbide mononitrate 20 mg by mouth daily, Zofran under the tongue 4 mg every 8 hours as needed for nausea and vomiting, amlodipine 10 mg by mouth daily, clonidine patch one patch transdermally every 7 days, minoxidil or Loniten 5 mg by mouth daily, Protonix 40 mg by mouth daily. ALLERGIES: THE PATIENT IS ALLERGIC TO ACETAMINOPHEN, AMOXICILLIN, HYDROCODONE, PENICILLIN, TRAMADOL. REVIEW OF SYSTEMS: CONSTITUTIONAL: There is no fever, no chills, no diaphoresis. HEENT: There is no headache or sore throat. CARDIOVASCULAR SYSTEM: There is no chest pain or orthopnea. RESPIRATORY SYSTEM: There is no shortness of breath or cough. GASTROINTESTINAL SYSTEM: There is nausea and vomiting. No abdominal pain, diarrhea or constipation. NEUROLOGICAL SYSTEM: There is no numbness, no dizziness, no altered mental status. MUSCULOSKELETAL SYSTEM: There is no joint pain or swelling. DERMATOLOGICAL SYSTEM: There is no skin rash or itching. GENITOURINARY SYSTEM: There is dysuria, but no hematuria or flank pain. Rest of system review is normal. PHYSICAL EXAMINATION: GENERAL: At the time of exam, the patient was found to be alert, oriented x 3 and not in acute distress. VITAL SIGNS: The patient's initial vital sign at the time of presentation showed temperature of 97.9 degrees Fahrenheit, pulse of 81, respirations 17, blood pressure to 216/95, O2 sat of 95% on room air. HEENT: Show pupils to be equal, round, reactive to light and accommodating. Extraocular muscles are intact. NECK: Supple with no JVD or carotid bruits. CARDIOVASCULAR SYSTEM: Showed normal first and second heart sounds with no gallops or murmurs. RESPIRATORY SYSTEM: Show good air entry on both sides of the lungs with no abnormal breath sounds. GASTROINTESTINAL SYSTEM: Show abdomen to be full, soft, nontender with no organomegaly or rigidity. NEUROLOGICAL: Shows no focal deficit. MUSCULOSKELETAL SYSTEM: Show no joint swelling or tenderness. DERMATOLOGIC SYSTEM: Show no skin rash. GENITOURINARY SYSTEM: Showing no costovertebral tenderness. PERTINENT LABORATORY AND IMAGING STUDIES: The patient had chest x-ray done that shows diminished vascular congestion with significant diminished atelectasis and effusion in the right lower lung. There is mild stable cardiomegaly and right central catheter was noted to be properly positioned. Lab results, the patient's CBC showed normal white count, low hemoglobin of 8.8 and low hematocrit of 26.7 with rest of CBC differential showing elevated segmented neutrophil count of 79.2%. Coagulation studies show high PT of 15.9 with slightly elevated INR of 1.19 and the patient's chemistry show very high potassium level of 8.7 and elevated BUN of 100 with elevated creatinine of 15.7 consistent with end-stage renal disease, on dialysis. DIAGNOSES: 1. Hyperkalemia. 2. Hypertensive crisis. 3. End-stage renal disease, on dialysis. 4. Anemia. PLAN OF CARE: 1. The patient will be admitted to critical care unit for emergency dialysis because of hyperkalemia and end-stage renal disease. 2. The patient will have basic metabolic panel checked in the morning having had treatment for hyperkalemia, using albuterol inhaler, calcium chloride IV, IV dextrose and IV insulin. 3. The patient will be on IV Zofran 4 mg every 8 hours for nausea and vomiting and will have one dose of Normodyne or labetalol 20 mg. 4. The patient will be on IV hydralazine 10 mg every 4 hours for blood pressure of 150/90 or more. 5. The patient will continue nephrology consult with Dr. Castillo who plans to dialyze the patient emergently this night because of hyperkalemia. 6. The patient will be on Accu-Chek before meals and at bedtime followed by low-dose sliding scale using regular insulin coverage. 7. The patient will be on 2 g sodium consistent carbohydrate diet. 8. The patient's home medications will be started as shown in the medication reconciliation section. JOB# [id number] OCN/NTS
[2018-12-23] MEDS ORDERED: CATAPRES-TTS PATCH TD SCH (05:00)
[2018-12-23] MEDS ORDERED: NACL 0.9 (PRIMING MACHINE ONLY DIALYSIS) MC ONE (06:16)
[2018-12-23] MEDS: HumuLIN R SUB-Q SCH ×4 (07:44→21:29)
[2018-12-23] MEDS: NORVASC PO SCH (09:28)
[2018-12-23] MEDS: MONOKET PO SCH (09:28)
[2018-12-23] MEDS: LONITEN PO SCH (09:28)
[2018-12-23] MEDS ORDERED: PROTONIX PO SCH (10:00)
[2018-12-23] MEDS ORDERED: ZOFRAN IV ONE (11:00)
[2018-12-23] MEDS ORDERED: REGLAN IV ONE (11:00)
[2018-12-23] MEDS ORDERED: PHENERGAN PR PRN (11:09)
[2018-12-23] MEDS ORDERED: ATIVAN IV PRN (11:10)
[2018-12-23] MEDS ORDERED: CARDENE 50 MG in NACL 0.9% 250ML 230 ML IV SCH (12:00)
--- NOTE | 2018-12-23 12:09 | Consultation ---
History of Present Illness - Reason for Consult Consult date: 12/23/18 Hypertensive Urgency/Hyperkalemia Requesting physician: ALDAIR PETERSON - History of Present Illness 48 y/o female, recently discharged from the hospital on 12/13 admitted with hypertensive Urgency and Hyperkalemia in need of emergent HD. Patient underwent HD last night and then had improvement in her K and BP. This am she is retching despite multiple rounds of zofran therapy. Patient also complains of abdominal pain. On last admission she had 2 EGD's with biopsy, both of which were negativ e. Remainder of the review is unremarkable. Past History Past Medical History: ESRD, hypertension, hyperlipidemia, other (chronic abdominal pain) Past Surgical History: Other (EGD, Graft and fistula placements) Medications and Allergies Allergies Allergy/AdvReac Type Severity Reaction Status Date / Time acetaminophen [From Lortab] Allergy Unknown Verified 11/03/18 16:59 amoxicillin Allergy Unknown Verified 07/03/18 20:57 hydrocodone [From Lortab] Allergy Unknown Verified 11/03/18 16:59 Penicillins Allergy Unknown Verified 05/19/18 13:02 tramadol Allergy Unknown Verified 07/03/18 20:57 IV contrast Allergy Rash Uncoded 01/15/17 17:55 Home Medications Medication Instructions Recorded Confirmed Last Taken Type AtorvaSTATin [Lipitor] 40 mg PO DAILY #30 tablet 12/03/18 12/10/18 Unknown Rx Dicyclomine [Bentyl] 10 mg PO QID PRN #30 capsule 12/03/18 12/10/18 Unknown Rx ISOSORBIDE MONOnitrate [Monoket] 20 mg PO DAILY #30 tablet 12/03/18 12/10/18 Unknown Rx Ondansetron [Zofran ODT TAB] 4 mg PO Q8HR #30 tab.rapdis 12/03/18 12/10/18 Unknown Rx amLODIPine [Norvasc] 10 mg PO DAILY #30 tablet 12/03/18 12/10/18 Unknown Rx cloNIDine-TTS PATCH [Catapres-Tts 1 patch TD Q7D #4 patch 12/03/18 12/10/18 Unknown Rx 0.1MG Patch] Minoxidil [Loniten] 5 mg PO QDAY #60 tablet 12/13/18 Unknown Rx Pantoprazole [Protonix] 40 mg PO QDAY #30 tablet 12/13/18 Unknown Rx Active Meds: Active Medications Amlodipine Besylate (Norvasc) 10 mg PO DAILY [facility] Last Admin: 12/23/18 09:28 Dose: 10 mg Documented by: Atorvastatin Calcium (Lipitor) 40 mg PO DAILY [facility] Last Admin: 12/23/18 09:32 Dose: 40 mg Documented by: Clonidine HCl (Catapres-Tts Patch) 0.1 mg TD We [facility] Last Admin: 12/23/18 05:52 Dose: 0.1 mg Documented by: Dextrose (D50w (25gm) Syringe) 50 ml IV PRN PRN PRN Reason: Hypoglycemia Dicyclomine HCl (Bentyl) 10 mg PO QID PRN PRN Reason: Pain, Mild (1-3) Hydralazine HCl (Apresoline) 10 mg IV Q4H PRN PRN Reason: Blood Pressure Last Admin: 12/23/18 07:47 Dose: 10 mg Documented by: Sodium Chloride (Nacl 0.9%) 100 mls @ 999 mls/hr IV LUIS PRN PRN Reason: Hypotension Nicardipine HCl 50 mg/ Sodium (Chloride) 250 mls @ 25 mls/hr IV TITR [facility]; Protocol Insulin Human Regular (Humulin R) 0 units SUB-Q AC [facility]; Protocol Last Admin: 12/23/18 07:44 Dose: Not Given Documented by: Insulin Human Regular (Humulin R) 0 units SUB-Q QHS [facility]; Protocol Isosorbide Mononitrate (Monoket) 20 mg PO DAILY [facility] Last Admin: 12/23/18 09:28 Dose: 20 mg Documented by: Metoclopramide HCl (Reglan) 5 mg IV Q6H PRN PRN Reason: N/V UNRELIEVED BY ZOFRAN Minoxidil (Loniten) 5 mg PO QDAY [facility] Last Admin: 12/23/18 09:28 Dose: 5 mg Documented by: Ondansetron HCl (Zofran) 4 mg IV Q8H PRN PRN Reason: Nausea And Vomiting Last Admin: 12/23/18 09:27 Dose: 4 mg Documented by: Pantoprazole Sodium (Protonix) 40 mg PO QDAY [facility] Last Admin: 12/23/18 09:28 Dose: 40 mg Documented by: Promethazine HCl (Phenergan) 25 mg RI Q6H PRN PRN Reason: Nausea And Vomiting Last Admin: 12/23/18 11:37 Dose: 25 mg Documented by: Review of Systems Constitutional: chronic pain Exam - Constitutional Vitals: Temp Pulse Resp BP Pulse Ox 97.7 F 92 H 14 221/93 97 12/23/18 05:00 12/23/18 10:30 12/23/18 10:30 12/23/18 10:30 12/23/18 10:30 General appearance: Present: no acute distress, obese - EENT Eyes: Present: PERRL, EOM intact Results - Labs CBC & Chem 7: 12/24/18 04:15 12/24/18 04:15 Labs: Abnormal lab results 12/22/18 12/22/18 12/22/18 Range/Units 22:06 22:06 22:06 RBC 3.02 L (3.65-5.03) M/mm3 Hgb 8.8 L (10.1-14.3) gm/dl Hct 26.7 L (30.3-42.9) % RDW 16.8 H (13.2-15.2) % Lymph % (Auto) 10.9 L (13.4-35.0) % Lymph # 0.8 L (1.2-5.4) K/mm3 Seg Neutrophils % 79.2 H (40.0-70.0) % PT 15.9 H (12.2-14.9) Sec. INR 1.19 H (0.87-1.13) APTT 37.1 H (24.2-36.6) Sec. Potassium 8.7 H* (3.6-5.0) mmol/L Chloride 96.6 L (98-107) mmol/L Carbon Dioxide 17 L (22-30) mmol/L BUN 100 H (7-17) mg/dL Creatinine 15.7 H (0.7-1.2) mg/dL Glucose 103 H (65-100) mg/dL - Imaging and Cardiology Chest x-ray: image reviewed (small right sided pleural with HD catheter in place, otherwise clear) Assessment and Plan 48 y/o ESRD, Hypertension and chronic abdominal pain admitted with Hypertensive urgency 1. Treat nausea 2. STart cardene drip if systolics are >200 and or diastolic >100 or lower for both if patient is symptomatic 3. GI pain has been worked up in past 4. Keep NPO for now. 5. HD per renal.
--- NOTE | 2018-12-23 13:52 | Progress Note ---
Assessment and Plan Assessment and plan: Patient is a 48 yo woman with history of ESRD on hemodialysis who presented with n/v. She has missed her hemodialysis session and now being admitted for severe hyperkalemia 8.7 and hypertension. She underwent emergent hemodialysis -ESRD: needing hemodialysis to correct hyperkalemia, Nephrology to manage -Severe hyperkalemia: HD -Malignant hypertension: requiring multiple doses of iv anti hypertensives, now on Cardene drip -Intractable n/v, patient had 2 EGDs this month, which showed Erosive gastritis; get KUB, treat with ppi iv bid -DVT ppx CCT 32 minutes History Interval history: Patient was seen and examined. Follow-up on current diagnosis,+n/v. Overnight uneventful. Patient denies any chest pain, shortness breath, nausea/vomiting or severe headaches. Imaging, nursing note, chart, labs and old chart reviewed. Discussed with patient. Hospitalist Physical - Physical exam Narrative exam: Gen: ill appearing with retching, NAD, Awake, Alert, Orientated, bmi 58.7 HEENT: NCAT, EOMI, PERRL, OP Clear Neck: supple, no adenopathy, no thyromegaly, no JVD CVS/Heart: RRR, normal S1S2, pulses present bilaterally Chest/Lungs: CTA B, Symmetrical chest expansion, good air entry bilaterally GI/Abdomen: soft, NTND, good bowel sounds, no guarding or rebound /Bladder: no suprapubic tenderness, no CVA or paraspinal tenderness Extermity/Skin: no c/c/e, no obvious rash MSK: FROM x 4 Neuro: CN 2-12 grossly intact except vision, no new focal deficits Psych: calm - Constitutional Vitals: Temp Pulse Resp BP Pulse Ox 97.2 F L 92 H 15 171/85 94 12/23/18 12:00 12/23/18 12:00 12/23/18 12:00 12/23/18 12:00 12/23/18 12:00 General appearance: Present: no acute distress, obese Results - Labs CBC & Chem 7: 12/22/18 22:06 12/23/18 05:33 Labs: Laboratory Last Values WBC 7.2 K/mm3 (4.5-11.0) 12/22/18 22:06 RBC 3.02 M/mm3 (3.65-5.03) L 12/22/18 22:06 Hgb 8.8 gm/dl (10.1-14.3) L 12/22/18 22:06 Hct 26.7 % (30.3-42.9) L 12/22/18 22:06 MCV 88 fl (79-97) 12/22/18 22:06 MCH 29 pg (28-32) 12/22/18 22:06 MCHC 33 % (30-34) 12/22/18 22:06 RDW 16.8 % (13.2-15.2) H 12/22/18 22:06 Plt Count 204 K/mm3 (140-440) 12/22/18 22:06 Lymph % (Auto) 10.9 % (13.4-35.0) L 12/22/18 22:06 [place] % (Auto) 7.0 % (0.0-7.3) 12/22/18 22:06 Eos % (Auto) 1.8 % (0.0-4.3) 12/22/18 22:06 Baso % (Auto) 1.1 % (0.0-1.8) 12/22/18 22:06 Lymph # 0.8 K/mm3 (1.2-5.4) L 12/22/18 22:06 [place] # 0.5 K/mm3 (0.0-0.8) 12/22/18 22:06 Eos # 0.1 K/mm3 (0.0-0.4) 12/22/18 22:06 Baso # 0.1 K/mm3 (0.0-0.1) 12/22/18 22:06 Seg Neutrophils % 79.2 % (40.0-70.0) H 12/22/18 22:06 Seg Neutrophils # 5.7 K/mm3 (1.8-7.7) 12/22/18 22:06 PT 15.9 Sec. (12.2-14.9) H 12/22/18 22:06 INR 1.19 (0.87-1.13) H 12/22/18 22:06 APTT 37.1 Sec. (24.2-36.6) H 12/22/18 22:06 Sodium 138 mmol/L (137-145) 12/22/18 22:06 Potassium 4.4 mmol/L (3.6-5.0) D 12/23/18 05:33 Chloride 96.6 mmol/L (98-107) L 12/22/18 22:06 Carbon Dioxide 17 mmol/L (22-30) L 12/22/18 22:06 Anion Gap 33 mmol/L 12/22/18 22:06 BUN 100 mg/dL (7-17) H 12/22/18 22:06 Creatinine 15.7 mg/dL (0.7-1.2) H 12/22/18 22:06 Estimated GFR 2 ml/min 12/22/18 22:06 BUN/Creatinine Ratio 6 % 12/22/18 22:06 Glucose 103 mg/dL (65-100) H 12/22/18 22:06 POC Glucose 113 (70-105) H 12/23/18 12:09 Calcium 8.7 mg/dL (8.4-10.2) 12/22/18 22:06 Active Medications - Current Medications Current Medications: Generic Name Dose Route Start Last Admin Trade Name Fre PRN Reason Stop Dose Admin Amlodipine Besylate 10 mg 12/23/18 10:00 12/23/18 09:28 Norvasc PO 10 mg DAILY [facility] Administration Atorvastatin Calcium 40 mg 12/23/18 10:00 12/23/18 09:32 Lipitor PO 40 mg DAILY [facility] Administration Clonidine HCl 0.1 mg 12/23/18 05:00 12/23/18 05:52 Catapres-Tts Patch TD 0.1 mg We [facility] Administration Dextrose 50 ml 12/23/18 03:00 D50w (25gm) Syringe IV PRN PRN Hypoglycemia Dicyclomine HCl 10 mg 12/23/18 03:26 Bentyl PO QID PRN Pain, Mild (1-3) Hydralazine HCl 10 mg 12/23/18 02:52 12/23/18 07:47 Apresoline IV 10 mg Q4H PRN Administration Blood Pressure Sodium Chloride 100 mls @ 999 mls/hr 12/22/18 23:13 Nacl 0.9% IV LUIS PRN Hypotension Nicardipine HCl 50 mg/ Sodium 250 mls @ 25 mls/hr 12/23/18 12:00 Chloride IV TITR [facility] Protocol 5 MG/HR Insulin Human Regular 0 units 12/23/18 07:30 12/23/18 13:37 Humulin R SUB-Q Not Given AC [facility] Protocol Insulin Human Regular 0 units 12/23/18 22:00 Humulin R SUB-Q QHS [facility] Protocol Isosorbide Mononitrate 20 mg 12/23/18 10:00 12/23/18 09:28 Monoket PO 20 mg DAILY [facility] Administration Metoclopramide HCl 5 mg 12/23/18 11:09 Reglan IV Q6H PRN N/V UNRELIEVED BY LENKAFRCAIN Minoxidil 5 mg 12/23/18 10:00 12/23/18 09:28 Loniten PO 5 mg QDAY [facility] Administration Ondansetron HCl 4 mg 12/23/18 02:54 12/23/18 09:27 Zofran IV 4 mg Q8H PRN Administration Nausea And Vomiting Pantoprazole Sodium 40 mg 12/23/18 10:00 12/23/18 09:28 Protonix PO 40 mg QDAY [facility] Administration Promethazine HCl 25 mg 12/23/18 11:09 12/23/18 11:37 Phenergan ID 25 mg Q6H PRN Administration Nausea And Vomiting
[2018-12-23] MEDS ORDERED: REGLAN IV PRN (13:55)
[2018-12-23] MEDS: PROTONIX IV SCH ×2 (15:58→21:08)
--- NOTE | 2018-12-23 16:29 | Consultation ---
History of Present Illness - History of Present Illness History Limited obtained from chart patient is sedated 48-year-old lady with medical history significant for end-stage renal disease, hypertension, diabetes mellitus type 2 diabetic ulcers retinopathy neuropathy and nephropathy on hemodialysis Friday admitted for MISSED hemodialysis she was found to be significantly hypERkalemic with potassium 8.7 she received dialysis overnight she received some Ativan in the ICU and is very drowsy and unable to provide a history of this time Past History Past Medical History: ESRD, hypertension, hyperlipidemia, other (chronic abdominal pain) Past Surgical History: Other (EGD, Graft and fistula placements) Medications and Allergies Allergies Allergy/AdvReac Type Severity Reaction Status Date / Time acetaminophen [From Lortab] Allergy Unknown Verified 11/03/18 16:59 amoxicillin Allergy Unknown Verified 07/03/18 20:57 hydrocodone [From Lortab] Allergy Unknown Verified 11/03/18 16:59 Penicillins Allergy Unknown Verified 05/19/18 13:02 tramadol Allergy Unknown Verified 07/03/18 20:57 IV contrast Allergy Rash Uncoded 01/15/17 17:55 Home Medications Medication Instructions Recorded Confirmed Last Taken Type AtorvaSTATin [Lipitor] 40 mg PO DAILY #30 tablet 12/03/18 12/10/18 Unknown Rx Dicyclomine [Bentyl] 10 mg PO QID PRN #30 capsule 12/03/18 12/10/18 Unknown Rx ISOSORBIDE MONOnitrate [Monoket] 20 mg PO DAILY #30 tablet 12/03/18 12/10/18 Unknown Rx Ondansetron [Zofran ODT TAB] 4 mg PO Q8HR #30 tab.rapdis 12/03/18 12/10/18 Unknown Rx amLODIPine [Norvasc] 10 mg PO DAILY #30 tablet 12/03/18 12/10/18 Unknown Rx cloNIDine-TTS PATCH [Catapres-Tts 1 patch TD Q7D #4 patch 12/03/18 12/10/18 Unknown Rx Patch] Minoxidil [Loniten] 5 mg PO QDAY #60 tablet 12/13/18 Unknown Rx Pantoprazole [Protonix] 40 mg PO QDAY #30 tablet 12/13/18 Unknown Rx Active Meds: Active Medications Amlodipine Besylate (Norvasc) 10 mg PO DAILY RADHA Last Admin: 12/23/18 09:28 Dose: 10 mg Documented by: Atorvastatin Calcium (Lipitor) 40 mg PO DAILY [facility] [place] Last Admin: 12/23/18 09:32 Dose: 40 mg Documented by: Clonidine HCl (Catapres-Tts Patch) 0.1 mg TD We [facility] Last Admin: 12/23/18 05:52 Dose: 0.1 mg Documented by: Dextrose (D50w (25gm) Syringe) 50 ml IV PRN PRN PRN Reason: Hypoglycemia Heparin Sodium (Porcine) (Heparin) 5,000 unit SUB-Q Q12HR [facility] [place] Hydralazine HCl (Apresoline) 10 mg IV Q4H PRN PRN Reason: Blood Pressure Last Admin: 12/23/18 15:58 Dose: 10 mg Documented by: Sodium Chloride (Nacl 0.9%) 100 mls @ 999 mls/hr IV LUIS PRN PRN Reason: Hypotension Nicardipine HCl 50 mg/ Sodium (Chloride) 250 mls @ 25 mls/hr IV TITR [facility] [place]; Protocol Insulin Human Regular (Humulin R) 0 units SUB-Q AC [facility] [place]; Protocol Last Admin: 12/23/18 13:37 Dose: Not Given Documented by: Insulin Human Regular (Humulin R) 0 units SUB-Q QHS [facility] [place]; Protocol Isosorbide Mononitrate (Monoket) 20 mg PO DAILY [facility] [place] Last Admin: 12/23/18 09:28 Dose: 20 mg Documented by: Metoclopramide HCl (Reglan) 5 mg IV Q6H PRN PRN Reason: N/V UNRELIEVED BY ZOFRAN Minoxidil (Loniten) 5 mg PO QDAY [facility] [place] Last Admin: 12/23/18 09:28 Dose: 5 mg Documented by: Ondansetron HCl (Zofran) 4 mg IV Q4H PRN PRN Reason: Nausea And Vomiting Pantoprazole Sodium (Protonix) 40 mg IV BID [facility] [place] Last Admin: 12/23/18 15:58 Dose: 40 mg Documented by: Review of Systems ROS unobtainable: due to mental status Exam - Vital Signs Vital signs: Vital Signs Pulse Resp Pulse Ox 81 17 95 12/22/18 21:56 12/22/18 21:56 12/22/18 21:56 - General Appearance General appearance: well-developed, well-nourished EENT: ATNC, PERRL, mucous membranes moist Neck: Present: neck supple Respiratory: Clear to Ascultation Heart: regular, S1S2 Gastrointestinal: Present: normal, normoactive bowel sounds Integumentary: no rash Neurologic: no focal deficit, alert and oriented x3 Musculoskeletal: Present: deferred Psychiatric: mood/affect appropriate Results - Lab Results 12/22/18 22:06 12/23/18 05:33 Most recent lab results Calcium 8.7 mg/dL (8.4-10.2) 12/22/18 22:06 Assessment and Plan - Patient Problems (1) End-stage renal disease needing dialysis Current Visit: No Status: Chronic Plan to address problem: End stage renal disease Dialysis access tunneled hemodialysis catheter Receive hemodialysis overnight We'll receive hemodialysis in the a.m. (2) Uncontrolled diabetes mellitus Current Visit: No Status: Acute Plan to address problem: Uncontrolled diabetes mellitus type 2 Continue medications Monitor fingerstick (3) Hyperkalemia Current Visit: No Status: Acute Plan to address problem: Hyperkalemia severe life-threatening EKG noted and reviewed with wide P waves and peak T waves Received emergent dialysis repeat potassium 4.4 Low potassium diet (4) Diastolic CHF Current Visit: No Status: Acute Qualifiers: Heart failure chronicity: acute on chronic Qualified Code(s): I50.33 - Acute on chronic diastolic (congestive) heart failure Plan to address problem: Diastolic CHF not in exacerbation Fluid restriction ultrafiltration with dialysis
[2018-12-23] MEDS: ZOFRAN IV PRN (21:17)
[2018-12-23] MEDS: REGLAN IV PRN (21:59)
[2018-12-24] MEDS: ZOFRAN IV PRN ×2 (02:48→12:24)
[2018-12-24 05:20] LABS: Hematocrit 23.6 % (30.3-42.9); Hemoglobin 7.6 gm/dl (10.1-14.3); Mean Corpuscular HGB Conc 32 % (30-34); Mean Corpuscular Volume 88 fl (79-97); Platelet Count 220 K/mm3 (140-440); Red Blood Count 2.68 M/mm3 (3.65-5.03); Red Cell Distribution Width 17.2 % (13.2-15.2)
[2018-12-24 05:36] LABS: Calcium 8.7 mg/dL (8.4-10.2)
[2018-12-24] MEDS ORDERED: PHENERGAN PR PRN (06:04)
--- NOTE | 2018-12-24 06:07 | Progress Note ---
Assessment and Plan Assessment and plan: Patient is a 48 yo woman with history of ESRD on hemodialysis who presented with n/v. She has missed her hemodialysis session and now being admitted for severe hyperkalemia 8.7 and hypertension. She underwent emergent hemodialysis -ESRD: needing hemodialysis to correct hyperkalemia, Nephrology to manage, residence counselor on noncompliance -Severe hyperkalemia: HD -Malignant hypertension: requiring multiple doses of iv anti hypertensives, now on Cardene drip -Intractable n/v, patient had 2 EGDs this month, which showed Erosive gastritis; ordered KUB but not done because patient was uncooperative, treat with ppi iv bid -DVT ppx on sq heparin, hgb dropped slightly will monitor closely History Interval history: Patient was seen and examined. Follow-up on current diagnosis,+n/v. Overnight uneventful. Patient denies any chest pain, shortness breath or severe headaches. Imaging, nursing note, chart, labs and old chart reviewed. Discussed with patient. Hospitalist Physical - Physical exam Narrative exam: Gen: ill appearing with retching, NAD, Awake, Alert, Orientated, bmi 58.7 HEENT: NCAT, EOMI, PERRL, OP Clear Neck: supple, no adenopathy, no thyromegaly, no JVD CVS/Heart: RRR, normal S1S2, pulses present bilaterally Chest/Lungs: CTA B, Symmetrical chest expansion, good air entry bilaterally GI/Abdomen: soft, NTND, good bowel sounds, no guarding or rebound /Bladder: no suprapubic tenderness, no CVA or paraspinal tenderness Extermity/Skin: no c/c/e, no obvious rash MSK: FROM x 4 Neuro: CN 2-12 grossly intact except vision, no new focal deficits Psych: calm - Constitutional Vitals: Temp Pulse Resp BP Pulse Ox 99.7 F H 103 H 15 187/73 92 12/24/18 04:00 12/24/18 04:30 12/24/18 04:30 12/24/18 04:30 12/24/18 04:30 General appearance: Present: no acute distress, obese Results - Labs CBC & Chem 7: 12/24/18 04:15 12/24/18 04:15 Labs: Laboratory Last Values WBC 7.8 K/mm3 (4.5-11.0) 12/24/18 04:15 RBC 2.68 M/mm3 (3.65-5.03) L 12/24/18 04:15 Hgb 7.6 gm/dl (10.1-14.3) L 12/24/18 04:15 Hct 23.6 % (30.3-42.9) L 12/24/18 04:15 MCV 88 fl (79-97) 12/24/18 04:15 MCH 28 pg (28-32) 12/24/18 04:15 MCHC 32 % (30-34) 12/24/18 04:15 RDW 17.2 % (13.2-15.2) H 12/24/18 04:15 Plt Count 220 K/mm3 (140-440) 12/24/18 04:15 Lymph % (Auto) 10.9 % (13.4-35.0) L 12/22/18 22:06 [place] % (Auto) 7.0 % (0.0-7.3) 12/22/18 22:06 Eos % (Auto) 1.8 % (0.0-4.3) 12/22/18 22:06 Baso % (Auto) 1.1 % (0.0-1.8) 12/22/18 22:06 Lymph # 0.8 K/mm3 (1.2-5.4) L 12/22/18 22:06 [place] # 0.5 K/mm3 (0.0-0.8) 12/22/18 22:06 Eos # 0.1 K/mm3 (0.0-0.4) 12/22/18 22:06 Baso # 0.1 K/mm3 (0.0-0.1) 12/22/18 22:06 Seg Neutrophils % 79.2 % (40.0-70.0) H 12/22/18 22:06 Seg Neutrophils # 5.7 K/mm3 (1.8-7.7) 12/22/18 22:06 PT 15.9 Sec. (12.2-14.9) H 12/22/18 22:06 INR 1.19 (0.87-1.13) H 12/22/18 22:06 APTT 37.1 Sec. (24.2-36.6) H 12/22/18 22:06 Sodium 137 mmol/L (137-145) 12/24/18 04:15 Potassium 6.4 mmol/L (3.6-5.0) H* D 12/24/18 04:15 Chloride 94.1 mmol/L (98-107) L 12/24/18 04:15 Carbon Dioxide 18 mmol/L (22-30) L 12/24/18 04:15 Anion Gap 31 mmol/L 12/24/18 04:15 BUN 46 mg/dL (7-17) H 12/24/18 04:15 Creatinine 9.4 mg/dL (0.7-1.2) H 12/24/18 04:15 Estimated GFR 4 ml/min 12/24/18 04:15 BUN/Creatinine Ratio 5 % 12/24/18 04:15 Glucose 113 mg/dL (65-100) H 12/24/18 04:15 POC Glucose 99 (70-105) 12/23/18 21:28 Calcium 8.7 mg/dL (8.4-10.2) 12/24/18 04:15 Active Medications - Current Medications Current Medications: Generic Name Dose Route Start Last Admin Trade Name Freq PRN Reason Stop Dose Admin Amlodipine Besylate 10 mg 12/23/18 10:00 12/23/18 09:28 Norvasc PO 10 mg DAILY RADHA Administration Atorvastatin Calcium 40 mg 12/23/18 10:00 12/23/18 09:32 Lipitor PO 40 mg DAILY RADHA Administration Clonidine HCl 0.1 mg 12/23/18 05:00 12/23/18 05:52 Catapres-Tts Patch TD 0.1 mg We RADHA Administration Dextrose 50 ml 12/23/18 03:00 D50w (25gm) Syringe IV PRN PRN Hypoglycemia Heparin Sodium (Porcine) 5,000 unit 12/24/18 14:03 Heparin SUB-Q Q12HR [facility] Hydralazine HCl 10 mg 12/23/18 02:52 12/23/18 20:23 Apresoline IV 10 mg Q4H PRN Administration Blood Pressure Sodium Chloride 100 mls @ 999 mls/hr 12/22/18 23:13 Nacl 0.9% IV LUIS PRN Hypotension Nicardipine HCl 50 mg/ Sodium 250 mls @ 25 mls/hr 12/23/18 12:00 12/24/18 04:30 Chloride IV 5 mg/hr TITR RADHA 25 mls/hr Titration Protocol 5 MG/HR Insulin Human Regular 0 units 12/23/18 07:30 12/23/18 17:42 Humulin R SUB-Q Not Given AC [facility] Protocol Insulin Human Regular 0 units 12/23/18 22:00 12/23/18 21:29 Humulin R SUB-Q Not Given QHS [facility] Protocol Isosorbide Mononitrate 20 mg 12/23/18 10:00 12/23/18 09:28 Monoket PO 20 mg DAILY RAD[facility] Administration Metoclopramide HCl 5 mg 12/23/18 11:09 12/23/18 21:59 Reglan IV 5 mg Q6H PRN Administration N/V UNRELIEVED BY ZOFRAN Minoxidil 5 mg 12/23/18 10:00 12/23/18 09:28 Loniten PO 5 mg QDAY [facility] Administration Ondansetron HCl 4 mg 12/23/18 13:56 12/24/18 02:48 Zofran IV 4 mg Q4H PRN Administration Nausea And Vomiting Pantoprazole Sodium 40 mg 12/23/18 15:00 12/23/18 21:08 Protonix IV 40 mg BID [facility] Administration Promethazine HCl 25 mg 12/24/18 06:04 Phenergan [place] Q6H PRN Nausea And Vomiting
[2018-12-24] MEDS ORDERED: CALCIUM CHLORIDE 1,000 MG in NACL 0.9% 100 ML IV ONE (06:14)
[2018-12-24] MEDS ORDERED: D50W (25GM) Syringe IV ONE (06:15)
[2018-12-24] MEDS ORDERED: HumuLIN R SUB-Q ONE (06:16)
[2018-12-24] MEDS ORDERED: KIONEX PO ONE (06:43)
[2018-12-24] MEDS: HumuLIN R SUB-Q SCH ×3 (07:30→23:26)
[2018-12-24] MEDS ORDERED: NACL 0.9% 100 ML IV PRN (09:07)
[2018-12-24] MEDS: PROTONIX IV SCH ×2 (09:18→22:16)
[2018-12-24] MEDS: MONOKET PO SCH (09:18)
[2018-12-24] MEDS: NORVASC PO SCH (09:19)
[2018-12-24] MEDS: LONITEN PO SCH (09:19)
[2018-12-24] MEDS: APRESOLINE IV PRN ×2 (09:32→18:54)
--- NOTE | 2018-12-24 10:33 | Progress Note ---
Assessment and Plan - Patient Problems (1) End-stage renal disease needing dialysis Current Visit: No Status: Chronic Plan to address problem: End stage renal disease Dialysis access tunneled hemodialysis catheter Hemodialysis today continue TTS schedule (2) Uncontrolled diabetes mellitus Current Visit: No Status: Acute Plan to address problem: Uncontrolled diabetes mellitus type 2 Continue medications Monitor fingerstick (3) Hyperkalemia Current Visit: No Status: Acute Plan to address problem: Hyperkalemia severe EKG noted and reviewed with wide P waves and peak T waves Received emergent dialysis on admission repeat potassium today 6.4 Low potassium diet (4) Diastolic CHF Current Visit: No Status: Acute Qualifiers: Heart failure chronicity: acute on chronic Qualified Code(s): I50.33 - Acute on chronic diastolic (congestive) heart failure Plan to address problem: Diastolic CHF not in exacerbation Fluid restriction ultrafiltration with dialysis Subjective Interval history: 48-year-old lady with medical history significant for end-stage renal disease, hypertension, diabetes mellitus type 2 diabetic ulcers retinopathy neuropathy and nephropathy on hemodialysis Friday admitted for MISSED hemodialysis She is not answering questions today family at bedside appears she missed dialysis for several day review of systems unobtainable as patient is refusing to answer questions ,family at bedside. She wants to sleep at this time. Objective - Vital Signs Vital signs: Vital Signs - 12hr 12/23/18 12/23/18 12/23/18 22:45 23:01 23:15 Temperature Pulse Rate 106 H 104 H Pulse Rate [ From Monitor] Respiratory 12 14 14 Rate Blood Pressure 155/80 119/80 119/80 O2 Sat by Pulse 94 91 94 Oximetry 12/23/18 12/23/18 12/23/18 23:18 23:31 23:39 Temperature Pulse Rate 106 H 103 H 104 H Pulse Rate [ From Monitor] Respiratory 19 15 17 Rate Blood Pressure 161/69 124/79 124/79 O2 Sat by Pulse 92 92 95 Oximetry 12/23/18 12/24/18 12/24/18 23:45 00:00 00:01 Temperature 99.3 F Pulse Rate 105 H 104 H Pulse Rate [ 104 H From Monitor] Respiratory 15 14 18 Rate Blood Pressure 124/79 126/87 O2 Sat by Pulse 91 94 92 Oximetry 12/24/18 12/24/18 12/24/18 00:15 00:30 00:45 Temperature Pulse Rate 106 H 102 H 102 H Pulse Rate [ From Monitor] Respiratory 12 14 17 Rate Blood Pressure 178/58 158/87 O2 Sat by Pulse 95 94 96 Oximetry 12/24/18 12/24/18 12/24/18 01:00 01:15 01:30 Temperature Pulse Rate 101 H 100 H 103 H Pulse Rate [ From Monitor] Respiratory 14 14 16 Rate Blood Pressure 163/83 163/61 127/109 O2 Sat by Pulse 97 98 96 Oximetry 12/24/18 12/24/18 12/24/18 01:45 02:01 02:15 Temperature Pulse Rate 100 H 102 H 101 H Pulse Rate [ From Monitor] Respiratory 18 17 12 Rate Blood Pressure 169/65 149/59 176/59 O2 Sat by Pulse 96 94 93 Oximetry 12/24/18 12/24/18 12/24/18 02:30 02:45 03:00 Temperature Pulse Rate 103 H 109 H 102 H Pulse Rate [ From Monitor] Respiratory 11 L 15 13 Rate Blood Pressure 176/74 173/67 167/59 O2 Sat by Pulse 95 95 95 Oximetry 12/24/18 12/24/18 12/24/18 03:15 03:30 03:45 Temperature Pulse Rate 100 H 101 H 103 H Pulse Rate [ From Monitor] Respiratory 20 14 20 Rate Blood Pressure 120/45 137/59 149/68 O2 Sat by Pulse 91 94 94 Oximetry 12/24/18 12/24/18 12/24/18 04:00 04:01 04:15 Temperature 99.7 F H Pulse Rate 105 H 104 H Pulse Rate [ 105 H From Monitor] Respiratory 16 14 16 Rate Blood Pressure 163/57 175/93 O2 Sat by Pulse 93 95 93 Oximetry 12/24/18 12/24/18 12/24/18 04:30 04:45 05:00 Temperature Pulse Rate 103 H 101 H 100 H Pulse Rate [ From Monitor] Respiratory 15 13 16 Rate Blood Pressure 187/73 154/64 150/54 O2 Sat by Pulse 92 94 92 Oximetry 12/24/18 12/24/18 12/24/18 05:15 05:30 05:45 Temperature Pulse Rate 100 H 98 H 101 H Pulse Rate [ From Monitor] Respiratory 17 14 17 Rate Blood Pressure 150/58 140/60 150/61 O2 Sat by Pulse 92 92 93 Oximetry 12/24/18 12/24/18 12/24/18 06:00 06:15 06:30 Temperature Pulse Rate 98 H 94 H 90 Pulse Rate [ From Monitor] Respiratory 15 14 15 Rate Blood Pressure 146/52 144/51 137/49 O2 Sat by Pulse 93 95 90 Oximetry 12/24/18 12/24/18 12/24/18 06:45 07:00 07:15 Temperature Pulse Rate 96 H 98 H 96 H Pulse Rate [ From Monitor] Respiratory 15 17 15 Rate Blood Pressure 162/67 167/51 180/65 O2 Sat by Pulse 94 93 94 Oximetry 12/24/18 12/24/18 12/24/18 07:31 07:45 08:00 Temperature Pulse Rate 101 H 97 H Pulse Rate [ 95 H From Monitor] Respiratory 14 15 17 Rate Blood Pressure 157/55 173/55 O2 Sat by Pulse 94 92 95 Oximetry 12/24/18 12/24/18 12/24/18 08:01 08:15 09:19 Temperature Pulse Rate 95 H 92 H 97 H Pulse Rate [ From Monitor] Respiratory 17 16 Rate Blood Pressure 151/52 151/52 144/123 O2 Sat by Pulse 95 92 Oximetry 12/24/18 09:32 Temperature Pulse Rate 96 H Pulse Rate [ From Monitor] Respiratory Rate Blood Pressure 169/133 O2 Sat by Pulse Oximetry - General Appearance General appearance: well-developed, well-nourished EENT: ATNC, PERRL, mucous membranes moist Neck: no JVD Respiratory: Present: Decreased Breath Sounds Cardiology: regular, S1S2 Gastrointestinal: normal, normoactive bowel sounds Integumentary: no rash Neurologic: CN 3-12 intact Psychiatric: depressed - Lab 12/24/18 04:15 12/24/18 04:15 Most recent lab results Calcium 8.7 mg/dL (8.4-10.2) 12/24/18 04:15 - Imaging Chest x-ray: image reviewed (I reviewed CXR with edema. ) Medications & Allergies - Medications Allergies/Adverse Reactions: Allergies acetaminophen [From Lortab] Allergy (Verified 11/03/18 16:59) Unknown amoxicillin Allergy (Verified 07/03/18 20:57) Unknown hydrocodone [From Lortab] Allergy (Verified 11/03/18 16:59) Unknown Penicillins Allergy (Verified 05/19/18 13:02) Unknown tramadol Allergy (Verified 07/03/18 20:57) Unknown IV contrast Allergy (Uncoded 01/15/17 17:55) Rash Home Medications: Home Medications Medication Instructions Recorded Confirmed Last Taken Type AtorvaSTATin [Lipitor] 40 mg PO DAILY #30 tablet 12/03/18 12/10/18 Unknown Rx Dicyclomine [Bentyl] 10 mg PO QID PRN #30 capsule 12/03/18 12/10/18 Unknown Rx ISOSORBIDE MONOnitrate [Monoket] 20 mg PO DAILY #30 tablet 12/03/18 12/10/18 Unknown Rx Ondansetron [Zofran ODT TAB] 4 mg PO Q8HR #30 tab.rapdis 12/03/18 12/10/18 Unknown Rx amLODIPine [Norvasc] 10 mg PO DAILY #30 tablet 12/03/18 12/10/18 Unknown Rx cloNIDine-TTS PATCH [Catapres-Tts 1 patch TD Q7D #4 patch 12/03/18 12/10/18 Unknown Rx 0.1MG Patch] Minoxidil [Loniten] 5 mg PO QDAY #60 tablet 12/13/18 Unknown Rx Pantoprazole [Protonix] 40 mg PO QDAY #30 tablet 12/13/18 Unknown Rx Active Medications: Generic Name Dose Route Start Last Admin Trade Name Freq PRN Reason Stop Dose Admin Amlodipine Besylate 10 mg 12/23/18 10:00 12/24/18 09:19 Norvasc PO 10 mg DAILY RADHA Administration Atorvastatin Calcium 40 mg 12/23/18 10:00 12/24/18 09:19 Lipitor PO 40 mg DAILY RADHA Administration Clonidine HCl 0.1 mg 12/23/18 05:00 12/23/18 05:52 Catapres-Tts Patch TD 0.1 mg We RADHA Administration Dextrose 50 ml 12/23/18 03:00 D50w (25gm) Syringe IV PRN PRN Hypoglycemia Heparin Sodium (Porcine) 5,000 unit 12/24/18 14:03 Heparin SUB-Q Q12HR [facility] Hydralazine HCl 10 mg 12/23/18 02:52 12/24/18 09:32 Apresoline IV 10 mg Q4H PRN Administration Blood Pressure Sodium Chloride 100 mls @ 999 mls/hr 12/22/18 23:13 Nacl 0.9% IV LUIS PRN Hypotension Nicardipine HCl 50 mg/ Sodium 250 mls @ 25 mls/hr 12/23/18 12:00 12/24/18 06:34 Chloride IV 0 mg/hr TITR RADHA 0 mls/hr Titration Protocol 5 MG/HR Sodium Chloride 100 mls @ 999 mls/hr 12/24/18 09:07 Nacl 0.9% IV LUIS PRN Hypotension Insulin Human Regular 0 units 12/23/18 07:30 12/24/18 07:30 Humulin R SUB-Q Not Given AC [facility] Protocol Insulin Human Regular 0 units 12/23/18 22:00 12/23/18 21:29 Humulin R SUB-Q Not Given QHS [facility] Protocol Isosorbide Mononitrate 20 mg 12/23/18 10:00 12/24/18 09:18 Monoket PO 20 mg DAILY [facility] Administration Metoclopramide HCl 5 mg 12/23/18 11:09 12/23/18 21:59 Reglan IV 5 mg Q6H PRN Administration N/V UNRELIEVED BY ZOFRAN Minoxidil 5 mg 12/23/18 10:00 12/24/18 09:19 Loniten PO 5 mg QDAY [facility] Administration Ondansetron HCl 4 mg 12/23/18 13:56 12/24/18 02:48 Zofran IV 4 mg Q4H PRN Administration Nausea And Vomiting Pantoprazole Sodium 40 mg 12/23/18 15:00 12/24/18 09:18 Protonix IV 40 mg BID [facility] Administration Promethazine HCl 25 mg 12/24/18 06:04 Phenergan [place] Q6H PRN Nausea And Vomiting
--- NOTE | 2018-12-24 11:39 | Progress Note ---
Assessment and Plan 48 y/o ESRD, Hypertension and chronic abdominal pain admitted with Hypertensive urgency 1. Restart all home PO meds for Hypertension control 2. May need psych consult if continues to refuse meds? 3. GI pain has been worked up in past 4. Ok with renal diet 5. HD per renal. 6. Feel patient is stable for transition to floor if she can keep PO down. Subjective Date of service: 12/24/18 Interval history: Briefly required cardene twice in the last 18 hours. Now off. Currently on HD. K was elevate but refused Kayexalate therapy this morning. Also, per RN refusing all oral medications. Tolerating HD. No further retching episodes. Objective - Constitutional Vitals: Vital Signs - 12hr 12/23/18 12/23/18 12/24/18 23:39 23:45 00:00 Temperature 99.3 F Pulse Rate 104 H 105 H Pulse Rate [ 104 H From Monitor] Respiratory 17 15 14 Rate Blood Pressure 124/79 124/79 O2 Sat by Pulse 95 91 94 Oximetry 12/24/18 12/24/18 12/24/18 00:01 00:15 00:30 Temperature Pulse Rate 104 H 106 H 102 H Pulse Rate [ From Monitor] Respiratory 18 12 14 Rate Blood Pressure 126/87 178/58 O2 Sat by Pulse 92 95 94 Oximetry 12/24/18 12/24/18 12/24/18 00:45 01:00 01:15 Temperature Pulse Rate 102 H 101 H 100 H Pulse Rate [ From Monitor] Respiratory 17 14 14 Rate Blood Pressure 158/87 163/83 163/61 O2 Sat by Pulse 96 97 98 Oximetry 12/24/18 12/24/18 12/24/18 01:30 01:45 02:01 Temperature Pulse Rate 103 H 100 H 102 H Pulse Rate [ From Monitor] Respiratory 16 18 17 Rate Blood Pressure 127/109 169/65 149/59 O2 Sat by Pulse 96 96 94 Oximetry 12/24/18 12/24/18 12/24/18 02:15 02:30 02:45 Temperature Pulse Rate 101 H 103 H 109 H Pulse Rate [ From Monitor] Respiratory 12 11 L 15 Rate Blood Pressure 176/59 176/74 173/67 O2 Sat by Pulse 93 95 95 Oximetry 12/24/18 12/24/18 12/24/18 03:00 03:15 03:30 Temperature Pulse Rate 102 H 100 H 101 H Pulse Rate [ From Monitor] Respiratory 13 20 14 Rate Blood Pressure 167/59 120/45 137/59 O2 Sat by Pulse 95 91 94 Oximetry 12/24/18 12/24/18 12/24/18 03:45 04:00 04:01 Temperature 99.7 F H Pulse Rate 103 H 105 H Pulse Rate [ 105 H From Monitor] Respiratory 20 16 14 Rate Blood Pressure 149/68 163/57 O2 Sat by Pulse 94 93 95 Oximetry 12/24/18 12/24/18 12/24/18 04:15 04:30 04:45 Temperature Pulse Rate 104 H 103 H 101 H Pulse Rate [ From Monitor] Respiratory 16 15 13 Rate Blood Pressure 175/93 187/73 154/64 O2 Sat by Pulse 93 92 94 Oximetry 12/24/18 12/24/18 12/24/18 05:00 05:15 05:30 Temperature Pulse Rate 100 H 100 H 98 H Pulse Rate [ From Monitor] Respiratory 16 17 14 Rate Blood Pressure 150/54 150/58 140/60 O2 Sat by Pulse 92 92 92 Oximetry 12/24/18 12/24/18 12/24/18 05:45 06:00 06:15 Temperature Pulse Rate 101 H 98 H 94 H Pulse Rate [ From Monitor] Respiratory 17 15 14 Rate Blood Pressure 150/61 146/52 144/51 O2 Sat by Pulse 93 93 95 Oximetry 12/24/18 12/24/18 12/24/18 06:30 06:45 07:00 Temperature Pulse Rate 90 96 H 98 H Pulse Rate [ From Monitor] Respiratory 15 15 17 Rate Blood Pressure 137/49 162/67 167/51 O2 Sat by Pulse 90 94 93 Oximetry 12/24/18 12/24/18 12/24/18 07:15 07:31 07:45 Temperature Pulse Rate 96 H 101 H 97 H Pulse Rate [ From Monitor] Respiratory 15 14 15 Rate Blood Pressure 180/65 157/55 173/55 O2 Sat by Pulse 94 94 92 Oximetry 12/24/18 12/24/18 12/24/18 08:00 08:01 08:15 Temperature Pulse Rate 95 H 92 H Pulse Rate [ 95 H From Monitor] Respiratory 17 17 16 Rate Blood Pressure 151/52 151/52 O2 Sat by Pulse 95 95 92 Oximetry 12/24/18 12/24/18 12/24/18 09:19 09:32 10:15 Temperature 98.1 F Pulse Rate 97 H 96 H 102 H Pulse Rate [ From Monitor] Respiratory 14 Rate Blood Pressure 144/123 169/133 142/60 O2 Sat by Pulse Oximetry 12/24/18 12/24/18 12/24/18 10:20 10:30 10:45 Temperature Pulse Rate 102 H 100 H 98 H Pulse Rate [ From Monitor] Respiratory Rate Blood Pressure 142/60 133/67 150/60 O2 Sat by Pulse Oximetry 12/24/18 12/24/18 12/24/18 11:00 11:15 11:30 Temperature Pulse Rate 104 H 102 H 102 H Pulse Rate [ From Monitor] Respiratory Rate Blood Pressure 159/48 151/52 177/56 O2 Sat by Pulse Oximetry General appearance: Present: no acute distress, well-nourished - EENT Eyes: PERRL, EOM intact ENT: hearing intact - Neck Neck: supple, normal ROM - Respiratory Respiratory effort: normal Respiratory: bilateral: CTA - Cardiovascular Rhythm: regular Heart Sounds: Present: S1 & S2 - Labs CBC & Chem 7: 12/24/18 04:15 12/24/18 04:15 Labs: Abnormal lab results 12/23/18 12/24/18 12/24/18 Range/Units 12:09 04:15 04:15 RBC 2.68 L (3.65-5.03) M/mm3 Hgb 7.6 L (10.1-14.3) gm/dl Hct 23.6 L (30.3-42.9) % RDW 17.2 H (13.2-15.2) % Potassium 6.4 H* D (3.6-5.0) mmol/L Chloride 94.1 L (98-107) mmol/L Carbon Dioxide 18 L (22-30) mmol/L BUN 46 H (7-17) mg/dL Creatinine 9.4 H (0.7-1.2) mg/dL Glucose 113 H (65-100) mg/dL POC Glucose 113 H (70-105) 12/24/18 Range/Units 08:05 RBC (3.65-5.03) M/mm3 Hgb (10.1-14.3) gm/dl Hct (30.3-42.9) % RDW (13.2-15.2) % Potassium (3.6-5.0) mmol/L Chloride (98-107) mmol/L Carbon Dioxide (22-30) mmol/L BUN (7-17) mg/dL Creatinine (0.7-1.2) mg/dL Glucose (65-100) mg/dL POC Glucose 146 H (70-105) Medications & Allergies - Medications Allergies/Adverse Reactions: Allergies acetaminophen [From Lortab] Allergy (Verified 11/03/18 16:59) Unknown amoxicillin Allergy (Verified 07/03/18 20:57) Unknown hydrocodone [From Lortab] Allergy (Verified 11/03/18 16:59) Unknown Penicillins Allergy (Verified 05/19/18 13:02) Unknown tramadol Allergy (Verified 07/03/18 20:57) Unknown IV contrast Allergy (Uncoded 01/15/17 17:55) Rash Home Medications: Home Medications Medication Instructions Recorded Confirmed Last Taken Type AtorvaSTATin [Lipitor] 40 mg PO DAILY #30 tablet 12/03/18 12/10/18 Unknown Rx Dicyclomine [Bentyl] 10 mg PO QID PRN #30 capsule 12/03/18 12/10/18 Unknown Rx ISOSORBIDE MONOnitrate [Monoket] 20 mg PO DAILY #30 tablet 12/03/18 12/10/18 Unknown Rx Ondansetron [Zofran ODT TAB] 4 mg PO Q8HR #30 tab.rapdis 12/03/18 12/10/18 Unknown Rx amLODIPine [Norvasc] 10 mg PO DAILY #30 tablet 12/03/18 12/10/18 Unknown Rx cloNIDine-TTS PATCH [Catapres-Tts 1 patch TD Q7D #4 patch 12/03/18 12/10/18 Unknown Rx 0.1MG Patch] Minoxidil [Loniten] 5 mg PO QDAY #60 tablet 12/13/18 Unknown Rx Pantoprazole [Protonix] 40 mg PO QDAY #30 tablet 12/13/18 Unknown Rx Active Medications: Generic Name Dose Route Start Last Admin Trade Name Freq PRN Reason Stop Dose Admin Amlodipine Besylate 10 mg 12/23/18 10:00 12/24/18 09:19 Norvasc PO 10 mg DAILY RADHA Administration Atorvastatin Calcium 40 mg 12/23/18 10:00 12/24/18 09:19 Lipitor PO 40 mg DAILY RADHA Administration Clonidine HCl 0.1 mg 12/23/18 05:00 12/23/18 05:52 Catapres-Tts Patch TD 0.1 mg We RADHA Administration Dextrose 50 ml 12/23/18 03:00 D50w (25gm) Syringe IV PRN PRN Hypoglycemia Heparin Sodium (Porcine) 5,000 unit 12/24/18 14:03 Heparin SUB-Q Q12HR [facility] Hydralazine HCl 10 mg 12/23/18 02:52 12/24/18 09:32 Apresoline IV 10 mg Q4H PRN Administration Blood Pressure Sodium Chloride 100 mls @ 999 mls/hr 12/22/18 23:13 Nacl 0.9% IV LUIS PRN Hypotension Sodium Chloride 100 mls @ 999 mls/hr 12/24/18 09:07 Nacl 0.9% IV LUIS PRN Hypotension Insulin Human Regular 0 units 12/23/18 07:30 12/24/18 07:30 Humulin R SUB-Q Not Given AC [facility] Protocol Insulin Human Regular 0 units 12/23/18 22:00 12/23/18 21:29 Humulin R SUB-Q Not Given QHS [facility] Protocol Isosorbide Mononitrate 20 mg 12/23/18 10:00 12/24/18 09:18 Monoket PO 20 mg DAILY [facility] Administration Metoclopramide HCl 5 mg 12/23/18 11:09 12/23/18 21:59 Reglan IV 5 mg Q6H PRN Administration N/V UNRELIEVED BY ZOFRAN Minoxidil 5 mg 12/23/18 10:00 12/24/18 09:19 Loniten PO 5 mg QDAY RADHA Administration Ondansetron HCl 4 mg 12/23/18 13:56 12/24/18 02:48 Zofran IV 4 mg Q4H PRN Administration Nausea And Vomiting Pantoprazole Sodium 40 mg 12/23/18 15:00 12/24/18 09:18 Protonix IV 40 mg BID RADHA Administration Promethazine HCl 25 mg 12/24/18 06:04 Phenergan [place] Q6H PRN Nausea And Vomiting
[2018-12-24] MEDS: HEPARIN SUB-Q SCH ×2 (13:47→22:16)
[2018-12-25] MEDS ORDERED: XANAX PO ONE (00:25)
[2018-12-25] MEDS ORDERED: HALDOL IM ONE (01:00)
[2018-12-25 08:23] LABS: Hematocrit 23.5 % (30.3-42.9); Hemoglobin 7.8 gm/dl (10.1-14.3); Mean Corpuscular HGB Conc 33 % (30-34); Mean Corpuscular Volume 85 fl (79-97); Platelet Count 187 K/mm3 (140-440); Red Blood Count 2.76 M/mm3 (3.65-5.03); Red Cell Distribution Width 16.7 % (13.2-15.2)
[2018-12-25 08:40] LABS: Calcium 8.3 mg/dL (8.4-10.2)
[2018-12-25] MEDS: NORVASC PO SCH (09:32)
[2018-12-25] MEDS: APRESOLINE IV PRN (09:33)
[2018-12-25] MEDS: HumuLIN R SUB-Q SCH ×4 (09:38→22:57)
[2018-12-25] MEDS: LONITEN PO SCH (09:52)
[2018-12-25] MEDS: MONOKET PO SCH (10:41)
[2018-12-25] MEDS: HEPARIN SUB-Q SCH ×2 (10:43→22:15)
[2018-12-25] MEDS: PROTONIX IV SCH ×2 (10:43→22:15)
--- NOTE | 2018-12-25 10:47 | Cat Scan Report ---
CT HEAD WITHOUT CONTRAST INDICATION: Left arm numbness. COMPARISON: 03/28/[address] FINDINGS: Noncontrast head CT, repeated for motion, again demonstrates age appropriate, symmetric ventricles and sulci, mild periventricular hypodensities/small vessel ischemic disease and minimal benign basal ganglia calcifications. No definite acute infarct, hemorrhage, mass effect or midline shift. No abnormal extra-axial fluid collections. Normal posterior fossa with preserved basilar cisterns. Possible interval left cataract surgery, though some abnormal density posteriorly along the retina again suspected. Please correlate. Mild maxillary sinus mucosal thickening, more so inferiorly and on the left. Mild nasal septal deviation, axial image 12, series 5. Slight ethmoid and sphenoid sinus mucosal thickening noted, left more than right. 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 Clear frontal sinuses and mastoid air cells. Normal calvarium and skull. Atherosclerotic ICA and vertebral artery calcifications, greater than expected for patient of this age. CONCLUSION: No acute intracranial CT abnormality or significant interval change with various findings, as detailed above. Please correlate. Thank you for the opportunity to participate in this patient's care.
--- NOTE | 2018-12-25 11:04 | Progress Note ---
Assessment and Plan 48 y/o ESRD, Hypertension and chronic abdominal pain admitted with Hypertensive urgency 1. Restart all home PO meds for Hypertension control 2. No pulmonary issues 3. GI pain has been worked up in past 4. Ok with renal diet 5. HD per renal. Will sign off. Subjective Date of service: 12/25/18 Interval history: No acute events. Successful transfer out of unit. Objective - Constitutional Vitals: Vital Signs - 12hr 12/24/18 12/25/18 12/25/18 23:14 06:00 09:32 Temperature 100.7 F H 98.8 F Pulse Rate 92 H 91 H 102 H Respiratory 18 20 Rate Blood Pressure 150/61 157/76 226/117 O2 Sat by Pulse 92 93 Oximetry 12/25/18 12/25/18 09:33 10:50 Temperature Pulse Rate 102 H Respiratory Rate Blood Pressure 226/116 174/71 O2 Sat by Pulse Oximetry - Labs CBC & Chem 7: 12/25/18 07:52 12/25/18 07:52 Labs: Abnormal lab results 12/24/18 12/25/18 12/25/18 Range/Units 12:05 07:52 07:52 RBC 2.76 L (3.65-5.03) M/mm3 Hgb 7.8 L (10.1-14.3) gm/dl Hct 23.5 L (30.3-42.9) % RDW 16.7 H (13.2-15.2) % BUN 20 H (7-17) mg/dL Creatinine 6.1 H (0.7-1.2) mg/dL POC Glucose 114 H (70-105) Calcium 8.3 L (8.4-10.2) mg/dL Medications & Allergies - Medications Allergies/Adverse Reactions: Allergies acetaminophen [From Lortab] Allergy (Verified 11/03/18 16:59) Unknown amoxicillin Allergy (Verified 07/03/18 20:57) Unknown hydrocodone [From Lortab] Allergy (Verified 11/03/18 16:59) Unknown Penicillins Allergy (Verified 05/19/18 13:02) Unknown tramadol Allergy (Verified 07/03/18 20:57) Unknown IV contrast Allergy (Uncoded 01/15/17 17:55) Rash Home Medications: Home Medications Medication Instructions Recorded Confirmed Last Taken Type AtorvaSTATin [Lipitor] 40 mg PO DAILY #30 tablet 04/04/19 04/11/19 Unknown Rx Dicyclomine [Bentyl] 10 mg PO QID PRN #30 capsule 12/03/18 12/10/18 Unknown Rx ISOSORBIDE MONOnitrate [Monoket] 20 mg PO DAILY #30 tablet 12/03/18 12/10/18 Unknown Rx Ondansetron [Zofran ODT TAB] 4 mg PO Q8HR #30 tab.rapdis 12/03/18 12/10/18 Unknown Rx amLODIPine [Norvasc] 10 mg PO DAILY #30 tablet 12/03/18 12/10/18 Unknown Rx cloNIDine-TTS PATCH [Catapres-Tts 1 patch TD Q7D #4 patch 12/03/18 12/10/18 Unknown Rx 0.1MG Patch] Minoxidil [Loniten] 5 mg PO QDAY #60 tablet 12/13/18 Unknown Rx Pantoprazole [Protonix] 40 mg PO QDAY #30 tablet 12/13/18 Unknown Rx Active Medications: Generic Name Dose Route Start Last Admin Trade Name Freq PRN Reason Stop Dose Admin Amlodipine Besylate 10 mg 12/23/18 10:00 12/25/18 09:32 Norvasc PO 10 mg DAILY RADHA Administration Atorvastatin Calcium 40 mg 12/23/18 10:00 12/25/18 09:52 Lipitor PO 40 mg DAILY RADHA Administration Clonidine HCl 0.1 mg 12/23/18 05:00 12/23/18 05:52 Catapres-Tts Patch TD 0.1 mg We RADHA Administration Dextrose 50 ml 12/23/18 03:00 D50w (25gm) Syringe IV PRN PRN Hypoglycemia Heparin Sodium (Porcine) 5,000 unit 12/24/18 14:03 12/25/18 10:43 Heparin SUB-Q Not Given Q12HR RADHA Hydralazine HCl 10 mg 12/23/18 02:52 12/25/18 09:33 Apresoline IV 10 mg Q4H PRN Administration Blood Pressure Sodium Chloride 100 mls @ 999 mls/hr 12/22/18 23:13 Nacl 0.9% IV LUIS PRN Hypotension Sodium Chloride 100 mls @ 999 mls/hr 12/24/18 09:07 Nacl 0.9% IV LUIS PRN Hypotension Insulin Human Regular 0 units 12/23/18 07:30 12/25/18 09:38 Humulin R SUB-Q Not Given AC [facility] Protocol Insulin Human Regular 0 units 12/23/18 22:00 12/24/18 23:26 Humulin R SUB-Q Not Given QHS [facility] Protocol Isosorbide Mononitrate 20 mg 12/23/18 10:00 12/25/18 10:41 Monoket PO 20 mg DAILY RADHA Administration Metoclopramide HCl 5 mg 12/23/18 11:09 12/23/18 21:59 Reglan IV 5 mg Q6H PRN Administration N/V UNRELIEVED BY ZOFRAN Minoxidil 5 mg 12/23/18 10:00 12/25/18 09:52 Loniten PO 5 mg QDAY [facility] Administration Ondansetron HCl 4 mg 12/23/18 13:56 12/24/18 12:24 Zofran IV 4 mg Q4H PRN Administration Nausea And Vomiting Pantoprazole Sodium 40 mg 12/23/18 15:00 12/25/18 10:43 Protonix IV 40 mg BID RADHA Administration Promethazine HCl 25 mg 12/24/18 06:04 Phenergan IN Q6H PRN Nausea And Vomiting
--- NOTE | 2018-12-25 13:26 | Progress Note ---
Assessment and Plan Assessment and plan: Patient is a 48 yo woman with history of ESRD on hemodialysis who presented with n/v. She has missed her hemodialysis session and now being admitted for severe hyperkalemia 8.7 and hypertension. She underwent emergent hemodialysis -ESRD: needing hemodialysis to correct hyperkalemia, Nephrology to manage, benefits counselor on noncompliance -Severe hyperkalemia: HD, Nephrology following -Malignant hypertension: requiring multiple doses of iv anti hypertensives, now on Cardene drip -Intractable n/v, patient had 2 EGDs this month, which showed Erosive gastritis; ordered KUB but not done because patient was uncooperative, treat with ppi iv bid -DVT ppx on sq heparin, hgb dropped slightly will monitor closely -Elevated temp 100.7F: get blood culture -c/o Left arm numbness: stat CT head done, negative for stroke full code Disposition: continue inpatient care, once bp control then d/c home. History Interval history: Patient was seen and examined. Follow-up on current diagnosis,+n/v. Overnight uneventful. Patient denies any chest pain, shortness breath or severe headaches. Imaging, nursing note, chart, labs and old chart reviewed. Discussed with patient. Hospitalist Physical - Physical exam Narrative exam: Gen: ill appearing with retching, NAD, Awake, Alert, Orientated, bmi 58.7 HEENT: NCAT, EOMI, PERRL, OP Clear Neck: supple, no adenopathy, no thyromegaly, no JVD CVS/Heart: RRR, normal S1S2, pulses present bilaterally Chest/Lungs: CTA B, Symmetrical chest expansion, good air entry bilaterally GI/Abdomen: soft, NTND, good bowel sounds, no guarding or rebound /Bladder: no suprapubic tenderness, no CVA or paraspinal tenderness Extermity/Skin: no c/c/e, no obvious rash MSK: FROM x 4 Neuro: CN 2-12 grossly intact except vision, no new focal deficits Psych: calm - Constitutional Vitals: Temp Pulse Resp BP Pulse Ox 98.8 F 102 H 20 174/71 93 12/25/18 06:00 12/25/18 09:33 12/25/18 06:00 12/25/18 10:50 12/25/18 06:00 General appearance: Present: no acute distress, well-nourished Results - Labs CBC & Chem 7: 12/25/18 07:52 12/25/18 07:52 Labs: Laboratory Last Values WBC 6.0 K/mm3 (4.5-11.0) 12/25/18 07:52 RBC 2.76 M/mm3 (3.65-5.03) L 12/25/18 07:52 Hgb 7.8 gm/dl (10.1-14.3) L 12/25/18 07:52 Hct 23.5 % (30.3-42.9) L 12/25/18 07:52 MCV 85 fl (79-97) 12/25/18 07:52 MCH 28 pg (28-32) 12/25/18 07:52 MCHC 33 % (30-34) 12/25/18 07:52 RDW 16.7 % (13.2-15.2) H 12/25/18 07:52 Plt Count 187 K/mm3 (140-440) 12/25/18 07:52 Lymph % (Auto) 10.9 % (13.4-35.0) L 12/22/18 22:06 [place] % (Auto) 7.0 % (0.0-7.3) 12/22/18 22:06 Eos % (Auto) 1.8 % (0.0-4.3) 12/22/18 22:06 Baso % (Auto) 1.1 % (0.0-1.8) 12/22/18 22:06 Lymph # 0.8 K/mm3 (1.2-5.4) L 12/22/18 22:06 [place] # 0.5 K/mm3 (0.0-0.8) 12/22/18 22:06 Eos # 0.1 K/mm3 (0.0-0.4) 12/22/18 22:06 Baso # 0.1 K/mm3 (0.0-0.1) 12/22/18 22:06 Seg Neutrophils % 79.2 % (40.0-70.0) H 12/22/18 22:06 Seg Neutrophils # 5.7 K/mm3 (1.8-7.7) 12/22/18 22:06 PT 15.9 Sec. (12.2-14.9) H 12/22/18 22:06 INR 1.19 (0.87-1.13) H 12/22/18 22:06 APTT 37.1 Sec. (24.2-36.6) H 12/22/18 22:06 Sodium 141 mmol/L (137-145) 12/25/18 07:52 Potassium 4.9 mmol/L (3.6-5.0) D 12/25/18 07:52 Chloride 98.6 mmol/L (98-107) 12/25/18 07:52 Carbon Dioxide 28 mmol/L (22-30) D 12/25/18 07:52 Anion Gap 19 mmol/L 12/25/18 07:52 BUN 20 mg/dL (7-17) H 12/25/18 07:52 Creatinine 6.1 mg/dL (0.7-1.2) H 12/25/18 07:52 Estimated GFR 7 ml/min 12/25/18 07:52 BUN/Creatinine Ratio 3 % 12/25/18 07:52 Glucose 80 mg/dL (65-100) 12/25/18 07:52 POC Glucose 74 (70-105) 12/25/18 08:21 Calcium 8.3 mg/dL (8.4-10.2) L 12/25/18 07:52 Active Medications - Current Medications Current Medications: Generic Name Dose Route Start Last Admin Trade Name Freq PRN Reason Stop Dose Admin Amlodipine Besylate 10 mg 12/23/18 10:00 12/25/18 09:32 Norvasc PO 10 mg DAILY RADHA Administration Atorvastatin Calcium 40 mg 12/23/18 10:00 12/25/18 09:52 Lipitor PO 40 mg DAILY RADHA Administration Clonidine HCl 0.1 mg 12/23/18 05:00 12/23/18 05:52 Catapres-Tts Patch TD 0.1 mg We RADHA Administration Dextrose 50 ml 12/23/18 03:00 D50w (25gm) Syringe IV PRN PRN Hypoglycemia Heparin Sodium (Porcine) 5,000 unit 12/24/18 14:03 12/25/18 10:43 Heparin SUB-Q Not Given Q12HR RADHA Hydralazine HCl 10 mg 12/23/18 02:52 12/25/18 09:33 Apresoline IV 10 mg Q4H PRN Administration Blood Pressure Sodium Chloride 100 mls @ 999 mls/hr 12/22/18 23:13 Nacl 0.9% IV LUIS PRN Hypotension Sodium Chloride 100 mls @ 999 mls/hr 12/24/18 09:07 Nacl 0.9% IV LUIS PRN Hypotension Insulin Human Regular 0 units 12/23/18 07:30 12/25/18 09:38 Humulin R SUB-Q Not Given AC [facility] Protocol Insulin Human Regular 0 units 12/23/18 22:00 12/24/18 23:26 Humulin R SUB-Q Not Given QHS [facility] Protocol Isosorbide Mononitrate 20 mg 12/23/18 10:00 12/25/18 10:41 Monoket PO 20 mg DAILY RADHA Administration Metoclopramide HCl 5 mg 12/23/18 11:09 12/23/18 21:59 Reglan IV 5 mg Q6H PRN Administration N/V UNRELIEVED BY ZOFRAN Minoxidil 5 mg 12/23/18 10:00 12/25/18 09:52 Loniten PO 5 mg QDAY RADHA Administration Ondansetron HCl 4 mg 12/23/18 13:56 12/24/18 12:24 Zofran IV 4 mg Q4H PRN Administration Nausea And Vomiting Pantoprazole Sodium 40 mg 12/23/18 15:00 12/25/18 10:43 Protonix IV 40 mg BID RADHA Administration Promethazine HCl 25 mg 12/24/18 06:04 Phenergan [place] Q6H PRN Nausea And Vomiting Nutrition/Malnutrition Assess - Dietary Evaluation Nutrition/Malnutrition Findings: Nutrition Notes Start: 12/24/18 12:55 Freq: Status: Active Protocol: Document 12/24/18 12:55 (Rec: 12/24/18 13:06 [facility]-[email or web address]) Co-Sign 12/24/18 12:55 LP Nutrition Notes Need for Assessment generated from: client representative Initial or Follow up Assessment Current Diagnosis CKD (stage V CKD),Diabetes, Hypertension,Stroke Other Pertinent Diagnosis on HD, kidney stones, asthma, psoriasis, anemia, hyperkalemia Current Diet No diet ordered Labs/Tests K: 6.4 BUN: 46 Cr: 9.4 Glu: 113 Pertinent Medications Reviewed Height 5 ft 7 in Weight 83.8 kg [place] Body Weight (kg) 61.36 BMI 28.9 Weight Status Overweight Subjective/Other Information RN screened for Skin Risk. Skin Risk: 15. RN finished bedside swallow and okay for mechanical soft diet. Per pt nurse, pt has been refusing food but has no swallowing difficulties. Burn Absent Trauma Absent #1 Nutrition Diagnosis Predicted suboptimal energy intake Etiology nausea and vomiting As Evidenced by Signs and Symptoms NPO Is patient on ventilator? No Is Patient Ambulatory and/or Out of Bed No REE-([facility]-confined to bed) [phone] Calculation Used for Recommendations [facility] Additional Notes Protein: 100-167 g/day (1.2-2g /kg) Fluid: 1 ml/kcal Nutrition Intervention Change Diet Order: Mechanical Soft Goal #1 Meet at least 75% of kcal and pro needs via PO intake Anticipated Discharge Needs: unable to determine at this time Follow-Up By: 12/28/18 Additional Comments F/U: PO intake
--- NOTE | 2018-12-25 16:10 | Progress Note ---
Assessment and Plan - Patient Problems (1) End-stage renal disease needing dialysis Current Visit: No Status: Chronic Plan to address problem: End stage renal disease Dialysis access tunneled hemodialysis catheter No acute indication for HD today. continue TTS schedule (2) Uncontrolled diabetes mellitus Current Visit: No Status: Acute Plan to address problem: Uncontrolled diabetes mellitus type 2 Continue medications Monitor fingerstick (3) Hyperkalemia Current Visit: No Status: Acute Plan to address problem: Hyperkalemia severe on admission s/p HD. EKG noted and reviewed with wide P waves and peak T waves Received emergent dialysis on admission Low potassium diet (4) Diastolic CHF Current Visit: No Status: Acute Qualifiers: Heart failure chronicity: acute on chronic Qualified Code(s): I50.33 - Acute on chronic diastolic (congestive) heart failure Plan to address problem: Diastolic CHF not in exacerbation Fluid restriction ultrafiltration with dialysis (5) Numbness and tingling in left arm Current Visit: Yes Status: Acute Plan to address problem: Brain CT was obtained by primary team No acute abnormalities Nurse to continue neuro checks Refused aspirin Subjective Interval history: 48-year-old lady with medical history significant for end-stage renal disease, hypertension, diabetes mellitus type 2 diabetic ulcers retinopathy neuropathy and nephropathy on hemodialysis Friday admitted for MISSED hemodialysis She is answering questions today reports left sided numbness Did not go to dialysis for several days since last Friday! because she said the ride did not come to get her but she did go to her sisters house last friday! Nurse at bedside refused aspirin has some hemorrhage in the eyes and is scheduled for surgery next week. discussed if concern for CVA aspirin is needed. Objective - Vital Signs Vital signs: Vital Signs - 12hr 12/25/18 12/25/18 12/25/18 06:00 09:32 09:33 Temperature 98.8 F Pulse Rate 91 H 102 H 102 H Respiratory 20 Rate Blood Pressure 157/76 226/117 226/116 O2 Sat by Pulse 93 Oximetry 12/25/18 10:50 Temperature Pulse Rate Respiratory Rate Blood Pressure 174/71 O2 Sat by Pulse Oximetry - General Appearance General appearance: well-developed, well-nourished EENT: ATNC, PERRL Neck: no JVD Respiratory: Present: Clear to Ascultation Cardiology: regular, S1S2 Gastrointestinal: normal, normoactive bowel sounds Integumentary: no rash, warm and dry Neurologic: no focal deficit, alert and oriented x3 Musculoskeletal: deferred Psychiatric: mood/affect appropriate - Lab 12/25/18 07:52 12/25/18 07:52 Most recent lab results Calcium 8.3 mg/dL (8.4-10.2) L 12/25/18 07:52 - Imaging Chest x-ray: image reviewed (review chest x-ray with bilateral patchy opacities) Medications & Allergies - Medications Allergies/Adverse Reactions: Allergies acetaminophen [From Lortab] Allergy (Verified 11/03/18 16:59) Unknown amoxicillin Allergy (Verified 07/03/18 20:57) Unknown hydrocodone [From Lortab] Allergy (Verified 11/03/18 16:59) Unknown Penicillins Allergy (Verified 05/19/18 13:02) Unknown tramadol Allergy (Verified 07/03/18 20:57) Unknown IV contrast Allergy (Uncoded 01/15/17 17:55) Rash Home Medications: Home Medications Medication Instructions Recorded Confirmed Last Taken Type AtorvaSTATin [Lipitor] 40 mg PO DAILY #30 tablet 12/03/18 12/10/18 Unknown Rx Dicyclomine [Bentyl] 10 mg PO QID PRN #30 capsule 12/03/18 12/10/18 Unknown Rx ISOSORBIDE MONOnitrate [Monoket] 20 mg PO DAILY #30 tablet 12/03/18 12/10/18 Unknown Rx Ondansetron [Zofran ODT TAB] 4 mg PO Q8HR #30 tab.rapdis 12/03/18 12/10/18 Unknown Rx amLODIPine [Norvasc] 10 mg PO DAILY #30 tablet 12/03/18 12/10/18 Unknown Rx cloNIDine-TTS PATCH [Catapres-Tts 1 patch TD Q7D #4 patch 12/03/18 12/10/18 Unknown Rx 0.1MG Patch] Minoxidil [Loniten] 5 mg PO QDAY #60 tablet 12/13/18 Unknown Rx Pantoprazole [Protonix] 40 mg PO QDAY #30 tablet 12/13/18 Unknown Rx Active Medications: Generic Name Dose Route Start Last Admin Trade Name Freq PRN Reason Stop Dose Admin Amlodipine Besylate 10 mg 12/23/18 10:00 12/25/18 09:32 Norvasc PO 10 mg DAILY RADHA Administration Atorvastatin Calcium 40 mg 12/23/18 10:00 12/25/18 09:52 Lipitor PO 40 mg DAILY RADHA Administration Clonidine HCl 0.1 mg 12/23/18 05:00 12/23/18 05:52 Catapres-Tts Patch TD 0.1 mg We RADHA Administration Dextrose 50 ml 12/23/18 03:00 D50w (25gm) Syringe IV PRN PRN Hypoglycemia Heparin Sodium (Porcine) 5,000 unit 12/24/18 14:03 12/25/18 10:43 Heparin SUB-Q Not Given Q12HR RADHA Hydralazine HCl 10 mg 12/23/18 02:52 12/25/18 09:33 Apresoline IV 10 mg Q4H PRN Administration Blood Pressure Hydralazine HCl 50 mg 12/25/18 13:30 Apresoline PO TID RADHA Sodium Chloride 100 mls @ 999 mls/hr 12/22/18 23:13 Nacl 0.9% IV LUIS PRN Hypotension Sodium Chloride 100 mls @ 999 mls/hr 12/24/18 09:07 Nacl 0.9% IV LUIS PRN Hypotension Insulin Human Regular 0 units 12/23/18 07:30 12/25/18 14:46 Humulin R SUB-Q Not Given AC [facility] Protocol Insulin Human Regular 0 units 12/23/18 22:00 12/24/18 23:26 Humulin R SUB-Q Not Given QHS [facility] Protocol Isosorbide Mononitrate 20 mg 12/23/18 10:00 12/25/18 10:41 Monoket PO 20 mg DAILY RADHA Administration Metoclopramide HCl 5 mg 12/23/18 11:09 12/23/18 21:59 Reglan IV 5 mg Q6H PRN Administration N/V UNRELIEVED BY ZOFRAN Minoxidil 5 mg 12/23/18 10:00 12/25/18 09:52 Loniten PO 5 mg QDAY [facility] Administration Ondansetron HCl 4 mg 12/23/18 13:56 12/24/18 12:24 Zofran IV 4 mg Q4H PRN Administration Nausea And Vomiting Pantoprazole Sodium 40 mg 12/23/18 15:00 12/25/18 10:43 Protonix IV 40 mg BID RADHA Administration Promethazine HCl 25 mg 12/24/18 06:04 Phenergan NC Q6H PRN Nausea And Vomiting
[2018-12-25] MEDS: APRESOLINE PO SCH ×3 (16:25→22:14)
[2018-12-25] MEDS ORDERED: MORPHINE PO PRN (23:44)
[2018-12-26] MEDS: APRESOLINE IV PRN (01:26)
[2018-12-26 05:54] LABS: Hemoglobin 8.2 gm/dl (10.1-14.3); Mean Corpuscular HGB Conc 33 % (30-34); Mean Corpuscular Volume 86 fl (79-97); Platelet Count 260 K/mm3 (140-440); Red Blood Count 2.92 M/mm3 (3.65-5.03); Red Cell Distribution Width 16.7 % (13.2-15.2)
[2018-12-26] MEDS: REGLAN IV PRN ×2 (05:57→11:04)
[2018-12-26] MEDS: HumuLIN R SUB-Q SCH ×3 (07:30→16:00)
[2018-12-26] MEDS: APRESOLINE PO SCH ×2 (08:00→14:00)
[2018-12-26] MEDS: MONOKET PO SCH (09:25)
[2018-12-26] MEDS: ZOFRAN IV PRN ×2 (09:26→17:14)
[2018-12-26] MEDS: PROTONIX IV SCH (09:26)
[2018-12-26] MEDS: LONITEN PO SCH (09:26)
[2018-12-26] MEDS: HEPARIN SUB-Q SCH (09:27)
[2018-12-26] MEDS: NORVASC PO SCH (09:27)
--- NOTE | 2018-12-26 11:17 | Progress Note ---
Assessment and Plan Assessment and plan: Patient is a 48 yo woman with history of ESRD on hemodialysis who presented with n/v. She has missed her hemodialysis session and now being admitted for severe hyperkalemia 8.7 and hypertension. She underwent emergent hemodialysis -ESRD: needing hemodialysis to correct hyperkalemia, Nephrology to manage, assistant counsel on noncompliance -Severe hyperkalemia: HD, Nephrology following -Malignant hypertension: requiring multiple doses of iv anti hypertensives, now on Cardene drip -Intractable n/v, patient had 2 EGDs this month, which showed Erosive gastritis; ordered KUB but not done because patient was uncooperative, treat with ppi iv bid -DVT ppx on sq heparin, hgb dropped slightly will monitor closely -Elevated temp 100.7F: get blood culture -c/o Left arm numbness: stat CT head done, negative for stroke full code Disposition: continue inpatient care, once bp control then d/c home. History Interval history: Patient was seen and examined. Follow-up on current diagnosis,+n/v. Overnight uneventful. Patient denies any chest pain, shortness breath or severe headaches. Imaging, nursing note, chart, labs and old chart reviewed. Discussed with patient. Hospitalist Physical - Physical exam Narrative exam: Gen: ill appearing with retching, NAD, Awake, Alert, Orientated, bmi 58.7 HEENT: NCAT, EOMI, PERRL, OP Clear Neck: supple, no adenopathy, no thyromegaly, no JVD CVS/Heart: RRR, normal S1S2, pulses present bilaterally Chest/Lungs: CTA B, Symmetrical chest expansion, good air entry bilaterally GI/Abdomen: soft, NTND, good bowel sounds, no guarding or rebound /Bladder: no suprapubic tenderness, no CVA or paraspinal tenderness Extermity/Skin: no c/c/e, no obvious rash MSK: FROM x 4 Neuro: CN 2-12 grossly intact except vision, no new focal deficits Psych: calm - Constitutional Vitals: Temp Pulse Resp BP Pulse Ox 98.4 F 104 H 18 160/76 96 12/25/18 23:52 12/25/18 23:52 12/25/18 23:52 12/26/18 06:44 12/25/18 23:52 General appearance: Present: no acute distress, well-nourished Results - Labs CBC & Chem 7: 12/26/18 05:31 12/26/18 05:31 Labs: Laboratory Last Values WBC 7.6 K/mm3 (4.5-11.0) 12/26/18 05:31 RBC 2.92 M/mm3 (3.65-5.03) L 12/26/18 05:31 Hgb 8.2 gm/dl (10.1-14.3) L 12/26/18 05:31 Hct 25.0 % (30.3-42.9) L 12/26/18 05:31 MCV 86 fl (79-97) 12/26/18 05:31 MCH 28 pg (28-32) 12/26/18 05:31 MCHC 33 % (30-34) 12/26/18 05:31 RDW 16.7 % (13.2-15.2) H 12/26/18 05:31 Plt Count 260 K/mm3 (140-440) 12/26/18 05:31 Lymph % (Auto) 10.9 % (13.4-35.0) L 12/22/18 22:06 [place] % (Auto) 7.0 % (0.0-7.3) 12/22/18 22:06 Eos % (Auto) 1.8 % (0.0-4.3) 12/22/18 22:06 Baso % (Auto) 1.1 % (0.0-1.8) 12/22/18 22:06 Lymph # 0.8 K/mm3 (1.2-5.4) L 12/22/18 22:06 [place] # 0.5 K/mm3 (0.0-0.8) 12/22/18 22:06 Eos # 0.1 K/mm3 (0.0-0.4) 12/22/18 22:06 Baso # 0.1 K/mm3 (0.0-0.1) 12/22/18 22:06 Seg Neutrophils % 79.2 % (40.0-70.0) H 12/22/18 22:06 Seg Neutrophils # 5.7 K/mm3 (1.8-7.7) 12/22/18 22:06 PT 15.9 Sec. (12.2-14.9) H 12/22/18 22:06 INR 1.19 (0.87-1.13) H 12/22/18 22:06 APTT 37.1 Sec. (24.2-36.6) H 12/22/18 22:06 Sodium 138 mmol/L (137-145) 12/26/18 05:31 Potassium 4.5 mmol/L (3.6-5.0) 12/26/18 05:31 Chloride 96.6 mmol/L (98-107) L 12/26/18 05:31 Carbon Dioxide 27 mmol/L (22-30) 12/26/18 05:31 Anion Gap 19 mmol/L 12/26/18 05:31 BUN 21 mg/dL (7-17) H 12/26/18 05:31 Creatinine 8.0 mg/dL (0.7-1.2) H 12/26/18 05:31 Estimated GFR 5 ml/min 12/26/18 05:31 BUN/Creatinine Ratio 3 % 12/26/18 05:31 Glucose 119 mg/dL (65-100) H 12/26/18 05:31 POC Glucose 149 (70-105) H 12/26/18 07:52 Calcium 8.0 mg/dL (8.4-10.2) L 12/26/18 05:31 Active Medications - Current Medications Current Medications: Generic Name Dose Route Start Last Admin Trade Name Freq PRN Reason Stop Dose Admin Amlodipine Besylate 10 mg 12/23/18 10:00 12/26/18 09:27 Norvasc PO 10 mg DAILY RADHA Administration Atorvastatin Calcium 40 mg 12/23/18 10:00 12/26/18 09:26 Lipitor PO 40 mg DAILY RADHA Administration Clonidine HCl 0.1 mg 12/23/18 05:00 12/23/18 05:52 Catapres-Tts Patch TD 0.1 mg We RADHA Administration Dextrose 50 ml 12/23/18 03:00 D50w (25gm) Syringe IV PRN PRN Hypoglycemia Heparin Sodium (Porcine) 5,000 unit 12/24/18 14:03 12/26/18 09:27 Heparin SUB-Q 5,000 unit Q12HR RADHA Administration Hydralazine HCl 10 mg 12/23/18 02:52 12/26/18 01:26 Apresoline IV 10 mg Q4H PRN Administration Blood Pressure Hydralazine HCl 50 mg 12/25/18 13:30 12/26/18 08:00 Apresoline PO 50 mg TID RADHA Administration Sodium Chloride 100 mls @ 999 mls/hr 12/22/18 23:13 Nacl 0.9% IV LUIS PRN Hypotension Sodium Chloride 100 mls @ 999 mls/hr 12/24/18 09:07 Nacl 0.9% IV LUIS PRN Hypotension Insulin Human Regular 0 units 12/23/18 07:30 12/26/18 07:30 Humulin R SUB-Q Not Given AC [facility] Protocol Insulin Human Regular 0 units 12/23/18 22:00 12/25/18 22:57 Humulin R SUB-Q Not Given QHS [facility] Protocol Isosorbide Mononitrate 20 mg 12/23/18 10:00 12/26/18 09:25 Monoket PO 20 mg DAILY RADHA Administration Metoclopramide HCl 5 mg 12/23/18 11:09 12/26/18 11:04 Reglan IV 5 mg Q6H PRN Administration N/V UNRELIEVED BY ZOFRAN Minoxidil 5 mg 12/23/18 10:00 12/26/18 09:26 Loniten PO 5 mg QDAY RADHA Administration Morphine Sulfate 15 mg 12/25/18 23:44 12/26/18 00:16 Morphine PO 15 mg Q4H PRN Administration Pain , Severe (7-10) Ondansetron HCl 4 mg 12/23/18 13:56 12/26/18 09:26 Zofran IV 4 mg Q4H PRN Administration Nausea And Vomiting Pantoprazole Sodium 40 mg 12/23/18 15:00 12/26/18 09:26 Protonix IV 40 mg BID RADHA Administration Promethazine HCl 25 mg 12/24/18 06:04 Phenergan NC Q6H PRN Nausea And Vomiting Nutrition/Malnutrition Assess - Dietary Evaluation Nutrition/Malnutrition Findings: Nutrition Notes Start: 12/24/18 12:55 Freq: Status: Active Protocol: Document 12/24/18 12:55 SA (Rec: 12/24/18 13:06 [facility]-[id number]) Co-Sign 12/24/18 12:55 LP Nutrition Notes Need for 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 Skin Risk: 15. RN finished bedside swallow and okay for mechanical soft diet. Per pt nurse, pt has been refusing food but has no swallowing difficulties. Burn Absent Trauma Absent #1 Nutrition Diagnosis Predicted suboptimal energy intake Etiology nausea and vomiting As Evidenced by Signs and Symptoms NPO Is patient on ventilator? No Is Patient Ambulatory and/or Out of Bed No REE-([facility]-confined to bed) 3579.538 Calculation Used for Recommendations [facility] Additional Notes Protein: 100-167 g/day (1.2-2g /kg) Fluid: 1 ml/kcal Nutrition Intervention Change Diet Order: Mechanical Soft Goal #1 Meet at least 75% of kcal and pro needs via PO intake Anticipated Discharge Needs: unable to determine at this time Follow-Up By: 12/28/18 Additional Comments F/U: PO intake
--- NOTE | 2018-12-26 11:22 | Discharge Summary ---
Providers - Providers Date of Admission: 12/22/18 23:31 Date of discharge: 12/26/18 Attending physician: ALDAIR PETERSON 12/22/18 23:11 Consult to Physician [CONS] Stat Comment: Dr. Ruiz spoke with Dr. Castillo @ [id number] Consulting Provider: YUKI CASTILLO Physician Instructions: Reason For Exam: acute hyperkalemia, potassium 8.7 12/23/18 08:57 Consult to Physician [CONS] Routine Comment: Consulting Provider: NICHELLE AMADOR Physician Instructions: Reason For Exam: critical care management [facility] Condition: Stable Hospital course: Patient is a 48 yo woman with history of ESRD on hemodialysis who presented with n/v. She has missed her hemodialysis session and now being admitted for severe hyperkalemia 8.7 and hypertension. 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 -Severe hyperkalemia: HD, Nephrology following -Malignant hypertension: requiring multiple doses of iv anti hypertensives, now on Cardene drip -Intractable n/v, patient had 2 EGDs this month, which showed Erosive gastritis; ordered KUB but not done because patient was uncooperative, treat with ppi iv bid -DVT ppx on sq heparin, hgb dropped slightly will monitor closely -Elevated temp 100.7F: get blood culture -c/o Left arm numbness: stat CT head done, negative for stroke full code Disposition: DC-01 TO HOME OR SELFCARE Time spent for discharge: 35 minutes Core Measure Documentation - Palliative Care Palliative Care/ Comfort Measures: Not Applicable - Core Measures Any of the following diagnoses?: none - VTE Discharge Requirements Deep Vein Thrombosis/Pulmonary Embolism Present on Admission: No Has pt received <5 days of overlap therapy or INR<2.0: No Anticoagulant overlap therapy prescribed at discharge: No Contraindication No Overlap Therapy order at DC: Not Indicated Exam - Physical Exam Narrative exam: Gen: ill appearing with retching, NAD, Awake, Alert, Orientated, bmi 58.7 HEENT: NCAT, EOMI, PERRL, OP Clear Neck: supple, no adenopathy, no thyromegaly, no JVD CVS/Heart: RRR, normal S1S2, pulses present bilaterally Chest/Lungs: CTA B, Symmetrical chest expansion, good air entry bilaterally GI/Abdomen: soft, NTND, good bowel sounds, no guarding or rebound /Bladder: no suprapubic tenderness, no CVA or paraspinal tenderness Extermity/Skin: no c/c/e, no obvious rash MSK: FROM x 4 Neuro: CN 2-12 grossly intact except vision, no new focal deficits Psych: calm - Constitutional Vitals: Temp Pulse Resp BP Pulse Ox 98.4 F 104 H 18 160/76 96 12/25/18 23:52 12/25/18 23:52 12/25/18 23:52 12/26/18 06:44 12/25/18 23:52 Plan Activity: other (no strenous activity) Diet: clear liquids, advance as tolerated Follow up with: ANNIE ORTEZMCINTYRE MD CARL[place]TA [Primary Care Provider] - 7 Days YUKI CASTILLO MD [Staff Physician] - 7 Days MOE PINEDA MD [Staff Physician] - 7 Days
--- NOTE | 2018-12-26 13:08 | Progress Note ---
Assessment and Plan Impression * End-stage renal disease on maintenance hemodialysis * Hyperkalemia, severe * Hypertension * Type II diabetes mellitus w/ hx of gastroparesis * Noncompliance Recommendations * Hemodialysis today - continue TTS schedule * Advised of need for compliance with treatments * Renal diet * Epogen TIW prn * Stable for d/c from a renal standpoint Subjective Date of service: 12/26/18 Interval history: Patient seen on dialysis. She reports nausea today. Objective - Vital Signs Vital signs: Vital Signs - 12hr 12/26/18 12/26/18 12/26/18 06:44 10:20 10:35 Temperature 98.2 F Pulse Rate 92 H 95 H Respiratory 18 Rate Blood Pressure 149/54 172/73 Blood Pressure 160/76 [Left] 12/26/18 12/26/18 12/26/18 10:45 11:00 11:15 Temperature Pulse Rate 88 94 H 87 Respiratory Rate Blood Pressure 155/70 143/62 114/52 Blood Pressure [Left] 12/26/18 11:30 Temperature Pulse Rate 98 H Respiratory Rate Blood Pressure 158/65 Blood Pressure [Left] - General Appearance General appearance: well-developed, well-nourished EENT: ATNC Cardiology: regular, S1S2 Gastrointestinal: normal, no tenderness, no distended Musculoskeletal: other (no edema) Psychiatric: cooperative - Lab 12/26/18 05:31 12/26/18 05:31 Most recent lab results Calcium 8.0 mg/dL (8.4-10.2) L 12/26/18 05:31 Medications & Allergies - Medications Allergies/Adverse Reactions: Allergies acetaminophen [From Lortab] Allergy (Verified 11/03/18 16:59) Unknown amoxicillin Allergy (Verified 07/03/18 20:57) Unknown hydrocodone [From Lortab] Allergy (Verified 11/03/18 16:59) Unknown Penicillins Allergy (Verified 05/19/18 13:02) Unknown tramadol Allergy (Verified 07/03/18 20:57) Unknown IV contrast Allergy (Uncoded 01/15/17 17:55) Rash Home Medications: Home Medications Medication Instructions Recorded Confirmed Last Taken Type AtorvaSTATin [Lipitor] 40 mg PO DAILY #30 tablet 12/03/18 12/26/18 Unknown Rx Dicyclomine [Bentyl] 10 mg PO QID PRN #30 capsule 12/03/18 12/26/18 Unknown Rx ISOSORBIDE MONOnitrate [Monoket] 20 mg PO DAILY #30 tablet 12/03/18 12/26/18 Unknown Rx Ondansetron [Zofran ODT TAB] 4 mg PO Q8HR #30 tab.rapdis 12/03/18 12/26/18 Unknown Rx amLODIPine [Norvasc] 10 mg PO DAILY #30 tablet 12/03/18 12/26/18 Unknown Rx cloNIDine-TTS PATCH [Catapres-Tts 1 patch TD Q7D #4 patch 12/03/18 12/26/18 Unknown Rx 0.1MG Patch] Minoxidil [Loniten] 5 mg PO QDAY #60 tablet 12/13/18 12/26/18 Unknown Rx Pantoprazole [Protonix TAB] 40 mg PO QDAY #30 tablet 12/13/18 12/26/18 Unknown Rx Insulin Regular, Human [HumuLIN R] 1 dose SUB-Q AC PRN #100 units 12/26/18 Unknown Rx hydrALAZINE [Apresoline TAB] 50 mg PO TID #90 tablet 12/26/18 Unknown Rx Active Medications: Generic Name Dose Route Start Last Admin Trade Name Freq PRN Reason Stop Dose Admin Amlodipine Besylate 10 mg 12/23/18 10:00 12/26/18 09:27 Norvasc PO 10 mg DAILY RADHA Administration Atorvastatin Calcium 40 mg 12/23/18 10:00 12/26/18 09:26 Lipitor PO 40 mg DAILY RADHA Administration Clonidine HCl 0.1 mg 12/23/18 05:00 12/23/18 05:52 Catapres-Tts Patch TD 0.1 mg We RADHA Administration Dextrose 50 ml 12/23/18 03:00 D50w (25gm) Syringe IV PRN PRN Hypoglycemia Heparin Sodium (Porcine) 5,000 unit 12/24/18 14:03 12/26/18 09:27 Heparin SUB-Q 5,000 unit Q12HR RADHA Administration Hydralazine HCl 10 mg 12/23/18 02:52 12/26/18 01:26 Apresoline IV 10 mg Q4H PRN Administration Blood Pressure Hydralazine HCl 50 mg 12/25/18 13:30 12/26/18 08:00 Apresoline PO 50 mg TID RADHA Administration Sodium Chloride 100 mls @ 999 mls/hr 12/22/18 23:13 Nacl 0.9% IV LUIS PRN Hypotension Sodium Chloride 100 mls @ 999 mls/hr 12/24/18 09:07 Nacl 0.9% IV LUIS PRN Hypotension Insulin Human Regular 0 units 12/23/18 07:30 12/26/18 11:30 Humulin R SUB-Q Not Given [facility] Protocol Insulin Human Regular 0 units 12/23/18 22:00 12/25/18 22:57 [facility] Isos[facility]ide Mononitrate 20 mg 12/23/18 10:00 12/26/18 09:25 Monoket PO 20 mg DAILY RADHA Administration Metoclopramide HCl 5 mg 12/23/18 11:09 12/26/18 11:04 Reglan IV 5 mg Q6H PRN Administration N/V UNRELIEVED BY ZOFRAN Minoxidil 5 mg 12/23/18 10:00 12/26/18 09:26 Loniten PO 5 mg QDAY RADHA Administration Morphine Sulfate 15 mg 12/25/18 23:44 12/26/18 00:16 Morphine PO 15 mg Q4H PRN Administration Pain , Severe (7-10) Ondansetron HCl 4 mg 12/23/18 13:56 12/26/18 09:26 Zofran IV 4 mg Q4H PRN Administration Nausea And Vomiting Pantoprazole Sodium 40 mg 12/23/18 15:00 12/26/18 09:26 Protonix IV 40 mg BID RADHA Administration Promethazine HCl 25 mg 12/24/18 06:04 Phenergan [place] Q6H PRN Nausea And Vomiting
[2018-12-26 15:39] VITALS: BP 128/72
== END 2018-12-26 19:13 | disposition home health service (06) | DRG 640 ==
LOC: ED 21:50 → CC1 23:31 → 3A 12-24 17:10
PROVIDERS: ADMIT Internal Medicine; ATTEND Internal Medicine
PROC: 5A1D70Z Performance of Urinary Filtration, Intermittent, Less than 6 Hours Per Day (ICD-10-PCS; principal; 2018-12-23)
PROC: 5A1D70Z Performance of Urinary Filtration, Intermittent, Less than 6 Hours Per Day (ICD-10-PCS; 2018-12-24)
PROC: 5A1D70Z Performance of Urinary Filtration, Intermittent, Less than 6 Hours Per Day (ICD-10-PCS; 2018-12-26)
DX: E87.5 Hyperkalemia (principal); N18.6 End stage renal disease; I13.2 Hypertensive heart and chronic kidney disease with heart failure and with stage 5 chronic kidney disease, or end stage renal disease; I16.0 Hypertensive urgency; E11.22 Type 2 diabetes mellitus with diabetic chronic kidney disease; I50.9 Heart failure, unspecified; E11.40 Type 2 diabetes mellitus with diabetic neuropathy, unspecified; L40.9 Psoriasis, unspecified; D64.9 Anemia, unspecified; Z91.19 Patient's noncompliance with other medical treatment and regimen; Z88.5 Allergy status to narcotic agent; Z99.2 Dependence on renal dialysis; Z88.0 Allergy status to penicillin; Z91.041 Radiographic dye allergy status; Z88.1 Allergy status to other antibiotic agents; Z79.899 Other long term (current) drug therapy; Z79.4 Long term (current) use of insulin; Z86.73 Personal history of transient ischemic attack (TIA), and cerebral infarction without residual deficits; Z87.442 Personal history of urinary calculi; Z89.431 Acquired absence of right foot; Z91.15 Patient's noncompliance with renal dialysis
CPT/HCPCS: 36415; 70450; 71045; 74019; 80048; 82962; 84132; 85025; 85027; 85610; 85730; 87040; 93005; 93010; 94640; 96374; 96375; G0378; A9270-GY; C9113; J0360; J1630; J1644; J1815; J2060; J2270; J2405; J2765; J7030; J7050

== ENCOUNTER 2019-02-03 08:58 | Outpatient (CLI) | payer MEDICARE ==
[2019-02-03 10:07] LABS: Hematocrit 28.3 % (30.3-42.9); Hemoglobin 9.6 gm/dl (10.1-14.3); Mean Corpuscular HGB Conc 34 % (30-34); Mean Corpuscular Volume 88 fl (79-97); Platelet Count 203 K/mm3 (140-440); Red Blood Count 3.22 M/mm3 (3.65-5.03)
[2019-02-03 10:24] LABS: Calcium 8.9 mg/dL (8.4-10.2)
[2019-02-08 20:53] LABS: Vitamin D, 25-OH, D2 <4 ng/mL
== END 2019-02-03 08:59 | disposition home or self-care (01) ==
LOC: LAB 08:58
PROVIDERS: ATTEND Internal Medicine
DX: E11.621 Type 2 diabetes mellitus with foot ulcer (principal); E78.2 Mixed hyperlipidemia; E11.22 Type 2 diabetes mellitus with diabetic chronic kidney disease; I12.0 Hypertensive chronic kidney disease with stage 5 chronic kidney disease or end stage renal disease; N18.6 End stage renal disease; E55.9 Vitamin D deficiency, unspecified; D63.1 Anemia in chronic kidney disease; K21.9 Gastro-esophageal reflux disease without esophagitis; J45.909 Unspecified asthma, uncomplicated
CPT/HCPCS: 36415; 80053; 82306; 82607; 83036; 84443; 85027

== ENCOUNTER 2019-03-03 12:11 | Outpatient (CLI) | payer MEDICARE ==
[2019-03-03 12:43] LABS: Hematocrit 25.1 % (30.3-42.9); Hemoglobin 8.7 gm/dl (10.1-14.3); Mean Corpuscular HGB Conc 35 % (30-34); Mean Corpuscular Volume 87 fl (79-97); Platelet Count 176 K/mm3 (140-440); Red Cell Distribution Width 16.6 % (13.2-15.2)
[2019-03-03 13:10] LABS: Albumin 3.9 g/dL (3.9-5); Calcium 9.1 mg/dL (8.4-10.2)
== END 2019-03-03 12:12 | disposition home or self-care (01) ==
LOC: LAB 12:11
PROVIDERS: ATTEND Internal Medicine
DX: I12.0 Hypertensive chronic kidney disease with stage 5 chronic kidney disease or end stage renal disease (principal); N18.6 End stage renal disease; R16.1 Splenomegaly, not elsewhere classified; K21.9 Gastro-esophageal reflux disease without esophagitis; J45.909 Unspecified asthma, uncomplicated
CPT/HCPCS: 36415; 80053; 85027